=== PATIENT | male | born 1935 | race Caucasian/White ===

== ENCOUNTER 2017-01-26 11:25 | Inpatient (IN) | payer OTHER ==
[~2017-01-26] VITALS: Ht 172.7 cm; Wt 77.2 kg
[2017-01-26] VITALS (8 sets, daily range): BP systolic 155–170; BP diastolic 95–98; PULSE 86–97; TEMP 36.4–36.9; O2SAT 91–97; Ht 172.7 cm; Wt 77.2 kg
[~2017-01-26 11:25] MED LIST: ALLO300T2 PO; ASPI81TA28 PO; CLON0.2T11 PO; IPRA1AER2 INH; IPRASOL4 INH; LISI-461 PO; LSX20 PO; LSX40 PO; METO50TA16 PO; NRV/10 PO; OXGN; PRAV40TA2 PO; SYN25 PO
[2017-01-26] MEDS ORDERED: METHYLPREDNISOLONE 125 MG VIAL IV STA (11:38)
[2017-01-26] MEDS ORDERED: ALBUT/IPRATROP 3MG/0.5MG NEB 3 ML VIAL INH ONE (11:45)
--- NOTE | 2017-01-26 11:46 | EMERGENCY ROOM VISIT NOTE ---
History Report prepared by Elias: Jorge Rubi Under the Supervision of: Dr. Jonny Ayala D.O. First contact with patient: 11:32 Chief Complaint: RESPIRATORY PROBLEMS Stated Complaint: COUGH, DIZZY, DIFF. BREATHING History of Present Illness The patient is an 81 year old male who presents to the Emergency Room with complaints of worsening. difficulty breathing that began two months prior to arrival. The patient states that he has also been experiencing a persistent producing cough that onset at roughly the same time as the breathing difficulties. He denies any blood in the cough or recent chest pains. The patient has a history of COPD and commonly uses oxygen at home while sleeping. He also uses home nebulizer treatments. The patient has had a STEMI in the past and had 4 stents placed. He denies any history of CHF. The patient had his last nebulizer treatment this morning at 0900. He was 85% on room air upon arrival to the emergency department. 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 A total of 10 systems reviewed and were otherwise negative. Past Medical & Surgical Medical Problems: (1) Asthma (2) CAD (coronary artery disease) (3) Chronic diastolic heart failure (4) Chronic obstructive lung disease (5) COPD (chronic obstructive pulmonary disease) (6) DM type 2 (diabetes mellitus, type 2) (7) Hx MRSA infection (8) Hypertension (9) Hypothyroidism (10) Pulmonary hypertension Surgical Problems: (1) Hx of squamous cell carcinoma excision (2) S/P coronary artery stent placement (3) S/P hernia repair (4) S/P knee replacement Family History Cancer Heart disease Hypertension Kidney disease Kidney stones Lung disease Seizures Social History Smoking Status: Former Smoker Alcohol Use: none Drug Use: none Marital Status: Housing Status: lives with family Occupation Status: retired Current/Historical Medications Scheduled Allopurinol (Zyloprim), 300 MG PO DAILY Aspirin (Aspirin Ec), 81 MG PO HS Clonidine Hcl (Catapres), 0.2 MG PO BID Furosemide (Furosemide), 20 MG PO QAM Furosemide (Furosemide), 40 MG PO DAILY Ipratropium-Albuterol (Duoneb), 1 TREATMENT INH Q6H Levothyroxine Sodium (Synthroid), 50 MCG PO DAILY Lisinopril (Prinivil), 5 MG PO PM Metoprolol Tartrate (Lopressor) (Lopressor), 50 MG PO BID Oxygen (Oxygen), 2 LITERS NA UD Pravastatin Sodium (Pravastatin Sodium), 40 MG PO HS Tamsulosin Hcl (Flomax), 0.4 MG PO PM Scheduled PRN Ipratropium-Albuterol (Combivent Respimat), 1 PUFFS INH QID PRN for Wheezing Allergies Coded Allergies: No Known Allergies (Unverified , 12/09/15) Physical Exam Vital Signs Date Time Temp Pulse Resp B/P Pulse Ox O2 Delivery O2 Flow Rate FiO2 01/26/17 14:45 97 20 141/82 91 Nasal Cannula 3.0 01/26/17 14:00 91 Nasal Cannula 3.0 01/26/17 13:32 97 22 121/80 94 Nasal Cannula 3.0 01/26/17 12:46 94 22 135/79 96 Nasal Cannula 3.0 01/26/17 11:52 86 18 96 Nasal Cannula 3.0 01/26/17 11:50 85 22 130/78 95 Nasal Cannula 3.0 01/26/17 11:48 87 01/26/17 11:39 85 Room Air 01/26/17 11:38 91 Nasal Cannula 3.0 01/26/17 11:37 85 Room Air 01/26/17 11:37 91 Nasal Cannula 3.0 01/26/17 11:28 36.9 90 24 122/74 82 Room Air Physical Exam GENERAL: Patient is awake, alert, and very anxious and uncomfortable appearing. Showing significant difficulty breathing. EYES: The conjunctivae are clear. The pupils are round and reactive. EARS, NOSE, MOUTH AND THROAT: The nose is without any evidence of any deformity. Mucous membranes are moist tongue is midline NECK: The neck is nontender and supple. RESPIRATORY: Diminished breath sounds throughout, with experatory wheezing bilaterally. Poor air movement bilaterally. Significant conversational dyspnea noted on examination. There is no evidence of rhonchi or rales CARDIOVASCULAR: Tachycardiac rate and rhythm noted there no murmurs rubs or gallops to auscultation normal S1 normal S2 GASTROINTESTINAL: The abdomen is soft. Bowel sounds are present in all quadrants. Abdomen is nontender MUSCULOSKELETAL/EXTREMITIES: There is no evidence of gross deformity full range of motion is noted in the hips and shoulders SKIN: Trace pedal edema bilaterally. There is no obvious evidence of any rash. There are no petechiae, pallor or cyanosis noted. NEUROLOGIC: Patient is awake alert and oriented x3 Medical Decision & Procedures ER Provider Diagnostic Interpretation: Radiology results as stated below per my review and radiologist interpretation: CHEST ONE VIEW PORTABLE CLINICAL HISTORY: Respiratory distress. Shortness of breath. COMPARISON STUDY: 12/09/2015 FINDINGS: There is severe pulmonary emphysema. The heart is the upper limits of normal in size. Right basal airspace opacities remain similar and are likely atelectatic. There are new left basal airspace opacities, possibly representing a pneumonitis. Clinical and radiographic follow-up is recommended.[ IMPRESSION: 1. Severe pulmonary emphysema 2. New left basal airspace opacities possibly representing a pneumonitis. Clinical and radiographic follow-up is recommended. Electronically signed by: Conor Leong M.D. 01/26/2017 11:56 AM Dictated Date/Time: 01/26/2017 11:54 AM Laboratory Results 01/26/17 11:45 Red Blood Count 4.35, Mean Corpuscular Volume 95.4, Mean Corpuscular Hemoglobin 31.3, Mean Corpuscular Hemoglobin Concent 32.8, Mean Platelet Volume 9.8, Neutrophils (%) (Auto) 82.4, Lymphocytes (%) (Auto) 6.3, Monocytes (%) (Auto) 7.1, Eosinophils (%) (Auto) 3.7, Basophils (%) (Auto) 0.3, Neutrophils # (Auto) 5.11, Lymphocytes # (Auto) 0.39, Monocytes # (Auto) 0.44, Eosinophils # (Auto) 0.23, Basophils # (Auto) 0.02 01/26/17 11:45 Test 01/26/17 11:45 01/26/17 13:25 White Blood Count 6.20 K/uL (4.8-10.8) Red Blood Count 4.35 M/uL (4.7-6.1) Hemoglobin 13.6 g/dL (14.0-18.0) Hematocrit 41.5 % (42-52) Mean Corpuscular Volume 95.4 fL (80-100) Mean Corpuscular Hemoglobin 31.3 pg (25-34) Mean Corpuscular Hemoglobin Concent 32.8 g/dl (32-36) Platelet Count 182 K/uL (130-400) Mean Platelet Volume 9.8 fL (7.4-10.4) Neutrophils (%) (Auto) 82.4 % Lymphocytes (%) (Auto) 6.3 % Monocytes (%) (Auto) 7.1 % Eosinophils (%) (Auto) 3.7 % Basophils (%) (Auto) 0.3 % Neutrophils # (Auto) 5.11 K/uL (1.4-6.5) Lymphocytes # (Auto) 0.39 K/uL (1.2-3.4) Monocytes # (Auto) 0.44 K/uL (0.11-0.59) Eosinophils # (Auto) 0.23 K/uL (0-0.5) Basophils # (Auto) 0.02 K/uL (0-0.2) RDW Standard Deviation 46.7 fL (36.4-46.3) RDW Coefficient of Variation 13.4 % (11.5-14.5) Immature Granulocyte % (Auto) 0.2 % Immature Granulocyte # (Auto) 0.01 K/uL (0.00-0.02) Prothrombin Time 10.4 SECONDS (9.0-12.0) Prothromb Time International Ratio 1.0 (0.9-1.1) Activated Partial Thromboplast Time 29.2 SECONDS (21.0-31.0) Partial Thromboplastin Ratio 1.1 Anion Gap 7.0 mmol/L (3-11) Est Creatinine Clear Calc Drug Dose 38.0 ml/min Estimated GFR () 50.2 Estimated GFR (Non- 43.3 BUN/Creatinine Ratio 9.4 (10-20) Calcium Level 8.7 mg/dl (8.5-10.1) Magnesium Level 1.8 mg/dl (1.8-2.4) Total Bilirubin 0.6 mg/dl (0.2-1) Aspartate Amino Transf (AST/SGOT) 21 U/L (15-37) Alanine Aminotransferase (ALT/SGPT) 16 U/L (12-78) Alkaline Phosphatase 47 U/L (45-117) Total Creatine Kinase 206 U/L (39-308) Creatine Kinase MB 3.2 ng/ml (0.5-3.6) Creatine Kinase MB Ratio 1.6 (0-3.0) Troponin I < 0.015 ng/ml (0-0.045) Pro-B-Type Natriuretic Peptide 897 pg/ml (0-1800) Total Protein 6.9 gm/dl (6.4-8.2) Albumin 3.6 gm/dl (3.4-5.0) Globulin 3.3 gm/dl (2.5-4.0) Albumin/Globulin Ratio 1.1 (0.9-2) Urine Color YELLOW Urine Appearance CLOUDY (CLEAR) Urine pH 7.5 (4.5-7.5) Urine Specific [place] 1.015 (1.000-1.030) Urine Protein NEG (NEG) Urine Glucose (UA) NEG (NEG) Urine Ketones NEG (NEG) Urine Occult Blood TRACE (NEG) Urine Nitrite NEG (NEG) Urine Bilirubin NEG (NEG) Urine Urobilinogen NEG (NEG) Urine Leukocyte Esterase SMALL (NEG) Urine WBC (Auto) 1-5 /hpf (0-5) Urine RBC (Auto) 0-4 /hpf (0-4) Urine Hyaline Casts (Auto) 1-5 /lpf (0-5) Urine Epithelial Cells (Auto) >30 /lpf (0-5) Urine Bacteria (Auto) NEG (NEG) Urine Renal Epithelial Cells /lpf (0-5) Laboratory results per my review. Medications Administered Medications (Trade) Dose Ordered Sig/Luis Route Start Time Stop Time Status Last Admin Dose Admin Albuterol/ Ipratropium (Duoneb) 12 ml ONE ONCE INH 01/26/17 11:45 01/26/17 11:46 DC 01/26/17 11:51 12 ML Methylprednisolone Sodium Succinate 125 mg 125 mg NOW STAT IV 01/26/17 11:38 01/26/17 11:40 DC 01/26/17 12:15 125 MG Sodium Chloride (Nss 1000ml) 1,000 ml @ 999 mls/hr Q1H1M STAT IV 01/26/17 11:56 01/26/17 12:56 DC 01/26/17 12:02 999 MLS/HR Levofloxacin (Levaquin / D5W) 750 mg NOW STAT IV 01/26/17 12:00 01/26/17 12:01 DC 01/26/17 12:15 750 MG ECG Indication: SOB/dyspnea Rate (beats per minute): 89 Rhythm: normal sinus Findings: RBBB, no ectopy ED Course 1136: The patient was evaluated in room A3. A complete history and physical examination were performed. 1138: Ordered Solu-Medrol 125 mg IV. 1145: Ordered Duoneb 12 mL INH. 1156: Ordered Sodium Chloride 1000 mL @ 999 mL/hr IV. 1200: Ordered Levofloxacin 750 mg IV. 1339: I reevaluated the patient at this time. She is agreeable to admission. 1358: I discussed the case with Ashley Keith, she will evaluate the patient for further treatment. Medical Decision Differential diagnosis: Etiologies such as infections, reactive airway disease, pneumonia, pneumothorax , COPD, CHF, cardiac ischemia, pulmonary embolism, musculoskeletal, gastrointestinal, as well as others were entertained. Nursing notes reviewed. The patient is an 81-year-old male who has a history of COPD who presented to the emergency department for an evaluation of shortness of breath. The patient was found have significant respiratory distress with air hunger and diminished breath sounds noted throughout. He was treated with an hour-long nebulizer treatment and IV steroids. He was also given IV fluids and IV antibiotics for presumed pneumonia noted on chest x-ray. The patient was reevaluated multiple times. His condition significantly improved but he still had very significant difficulty breathing. He was also found have hypoxia initially. This reason I discussed his case with the on-call [facility] hospitalist group. They've agreed to evaluate the patient in emergency department for further management and disposition. Consults Time Called: [phone] Consulting Physician: Ashley Keith Returned Call: [phone] I discussed the case with Ashley Keith, she will evaluate the patient for further treatment. Impression Primary Impression: COPD exacerbation Additional Impressions: Left lower lobe pneumonia Hypoxia Scribe Attestation The scribe's documentation has been prepared under my direction and personally reviewed by me in its entirety. I confirm that the note above accurately reflects all work, treatment, procedures, and medical decision making performed by me. Departure Information Dispostion Being Evaluated By Hospitalist Referrals Ochoa Kelly DO (PCP) Patient Instructions My [facility] Problem Qualifiers Additional Impressions: Left lower lobe pneumonia Pneumonia type: due to unspecified organism Qualified Codes: J18.1 - Lobar pneumonia, unspecified organism
[2017-01-26] MEDS ORDERED: SODIUM CHLORIDE 0.9% 1000ML 1,000 ML IV STA (11:56)
--- NOTE | 2017-01-26 11:57 | DIAGNOSTIC IMAGING REPORT ---
CHEST ONE VIEW PORTABLE CLINICAL HISTORY: Respiratory distress. Shortness of breath. COMPARISON STUDY: 12/09/2015 FINDINGS: There is severe pulmonary emphysema. The heart is the upper limits of normal in size. Right basal airspace opacities remain similar and are likely atelectatic. There are new left basal airspace opacities, possibly representing a pneumonitis. Clinical and radiographic follow-up is recommended.[ IMPRESSION: 1. Severe pulmonary emphysema 2. New left basal airspace opacities possibly representing a pneumonitis. Clinical and radiographic follow-up is recommended. Electronically signed by: Conor Leong M.D. 01/26/2017 11:56 AM Dictated Date/Time: 01/26/2017 11:54 AM
[2017-01-26] MEDS ORDERED: LISI5TAB PO (12:00)
[2017-01-26] MEDS ORDERED: LEVAQUIN 750MG / 150ML D5W IV STA (12:00)
[2017-01-26] MEDS ORDERED: TAMS0.4C38 PO (12:00)
[2017-01-26] MEDS ORDERED: LEVO50TA PO (12:00)
[2017-01-26 12:06] LABS: BASO % 0.3 %; BASO ABS # 0.02 K/uL (0-0.2); COMPLETE YES; EOS % 3.7 %; HEMATOCRIT 41.5 % (42-52); IG% 0.2 %; LYMPH % 6.3 %; LYMPH ABS # 0.39 K/uL (1.2-3.4); MEAN CELL VOLUME 95.4 fL (80-100); MEAN CORPUSCULAR HEMOGLOBIN 31.3 pg (25-34); MEAN CORPUSCULAR HGB CONC 32.8 g/dl (32-36); MEAN PLATELET VOLUME 9.8 fL (7.4-10.4); MONO % 7.1 %; NEUT % 82.4 %; PLATELET COUNT 182 K/uL (130-400); RED BLOOD COUNT 4.35 M/uL (4.7-6.1)
[2017-01-26 12:22] LABS: PARTIAL THROMBOPLASTIN RATIO 1.1; PROTHROMBIN TIME (PATIENT) 10.4 SECONDS (9.0-12.0)
[2017-01-26 12:27] LABS: ALT/SGPT 16 U/L (12-78); BLOOD UREA NITROGEN 14 mg/dl (7-18); BUN/CREATININE RATIO 9.4 (10-20); CALCIUM 8.7 mg/dl (8.5-10.1); CARBON DIOXIDE 36 mmol/L (21-32); CHLORIDE 99 mmol/L (98-107); GLUCOSE 129 mg/dl (70-99); MAGNESIUM 1.8 mg/dl (1.8-2.4); POTASSIUM 3.1 mmol/L (3.5-5.1); SODIUM 142 mmol/L (136-145)
[2017-01-26 12:32] LABS: ALB/GLOB RATIO 1.1 (0.9-2); ALKALINE PHOSPHATASE 47 U/L (45-117); AST/SGOT 21 U/L (15-37); CKMB/CK RATIO 1.6 (0-3.0)
[2017-01-26 13:50] LABS: URINE APPEARANCE CLOUDY (CLEAR); URINE BILIRUBIN NEG (NEG); URINE COLOR YELLOW; URINE EPITHELIAL CELL AUTO >30 /lpf (0-5); URINE NITRITE NEG (NEG); URINE PH 7.5 (4.5-7.5); URINE SPECIFIC GRAVITY 1.015 (1.000-1.030); UROBILINOGEN NEG (NEG)
[2017-01-26 13:51] LABS: MANUAL MICROSCOPIC REQUIRED? NO; REVIEW REQ? YES
[2017-01-26] MEDS ORDERED: ONDANSETRON INJ 2 MG/ML 2 ML VIAL IV PRN (15:15)
[2017-01-26] MEDS ORDERED: ACETAMINOPHEN 325 MG TAB PO PRN (15:15)
[2017-01-26] MEDS ORDERED: NITROGLYCERIN 0.4 MG SL PER TAB CHARGE SL PRN (15:15)
[2017-01-26] MEDS ORDERED: SODIUM CHLORIDE 0.9% 1000ML 1,000 ML IV SCH (15:15)
[2017-01-26] MEDS ORDERED: POTASSIUM CHLORIDE 10 MEQ TABCR PO STA (15:53)
[2017-01-26] MEDS ORDERED: DEXTROSE 50% 50 ML SYR IV PRN (17:00)
[2017-01-26] MEDS ORDERED: GLUCOSE 40% GEL 15 GM TUBE PO PRN (17:00)
[2017-01-26] MEDS ORDERED: GLUCAGON FOR INJ 1 MG VIAL SQ PRN (17:00)
[2017-01-26] MEDS ORDERED: GLUCOSE 10 TABS/TUBE PO PRN (17:00)
--- NOTE | 2017-01-26 17:34 | History and Physical ---
History & Physical Date & Time of Service: Jan 26, 2017 at 15:18 Chief Complaint: Cough, Dizzy, Diff. Breathing Primary Care Physician: Ochoa Kelly DO History of Present Illness Source: patient This is an 81 y/o male with PMHx of CAD s/p stents, diet-controlled DM 2, COPD on 2L O2 HS, HTN, Dyslipidemia and other problems as outlined below who presents to the ED c/o SOB x 2 days. Pt reports that 2 days ago he developed worsening SOB that is aggravated with exertion. He has been using his nebulizer and inhalers which is only providing temporary relief. Sxs are assoc with wheezing and prod cough. Pt has a history of COPD on 2L O2 HS and PRN during the day. For the past 2 days he has been using his O2 continuously. Pt has a history of CAD with 4 stents placed. Pt denies fever/chills, diaphoresis, chest pain, palpitations, abd pain, N/V, bowel or bladder issues, LE edema ,calf pain , lightheadedness/dizziness. In the ED, pt is hypoxic to 87% on room air. He is afebrile with no leukocytosis. K+ 3.1. creat 1.5. CXR + L basilar opacity. Pt received duoneb and solu-Medrol in the ED with some relief. He will be admitted for further evaluation and treatment. Past Medical/Surgical History Medical Problems: (1) Asthma Status: Chronic (2) CAD (coronary artery disease) Permanent Comment: s/p stent Status: Chronic (3) Chronic diastolic heart failure Permanent Comment: Echo 10/26- EF 55-60%, grade 1 diastolic dysfunction Status: Chronic (4) Chronic obstructive lung disease Status: Chronic (5) COPD (chronic obstructive pulmonary disease) Status: Chronic (6) DM type 2 (diabetes mellitus, type 2) Status: Resolved (7) Hx MRSA infection Permanent Comment: per records Status: Chronic (8) Hypertension Status: Chronic (9) Hypothyroidism Status: Chronic (10) Pulmonary hypertension Permanent Comment: Moderate on echo 09/2014 Status: Chronic Surgical Problems: (1) Hx of squamous cell carcinoma excision Permanent Comment: upper lip Status: Chronic (2) S/P coronary artery stent placement Permanent Comment: 2005 and 2007 Status: Chronic (3) S/P hernia repair Status: Chronic (4) S/P knee replacement Status: Chronic Family History Cancer Heart disease Hypertension Kidney disease Kidney stones Lung disease Seizures Social History Smoking Status: Former Smoker (50 years of smoking pipe; quit 1997) Drug Use: none Marital Status: Housing status: lives alone Occupational Status: retired Immunizations History of Influenza Vaccine: Yes Influenza Vaccine Date: Aug 07, 2012 History of Tetanus Vaccine?: Yes History of Pneumococcal: Yes Pneumococcal Date: Jul 08, 2011 History of Hepatitis B Vaccine: No Multi-Drug Resistant Organisms History of MDRO: Yes Type of MDRO: MRSA Allergies Coded Allergies: No Known Allergies (Unverified , 12/09/15) Home Medications Scheduled Allopurinol (Zyloprim), 300 MG PO DAILY Aspirin (Aspirin Ec), 81 MG PO HS Clonidine Hcl (Catapres), 0.2 MG PO BID Furosemide (Furosemide), 20 MG PO QAM Furosemide (Furosemide), 40 MG PO DAILY Ipratropium-Albuterol (Duoneb), 1 TREATMENT INH Q6H Levothyroxine Sodium (Synthroid), 50 MCG PO DAILY Lisinopril (Prinivil), 5 MG PO PM Metoprolol Tartrate (Lopressor) (Lopressor), 50 MG PO BID Oxygen (Oxygen), 2 LITERS NA UD Pravastatin Sodium (Pravastatin Sodium), 40 MG PO HS Tamsulosin Hcl (Flomax), 0.4 MG PO PM Scheduled PRN Ipratropium-Albuterol (Combivent Respimat), 1 PUFFS INH QID PRN for Wheezing Review of Systems Constitutional: + fatigue, No chills, No fever, No sweats, No weakness Eyes: No worsening of vision ENT: No hearing loss Respiratory: + cough, + dyspnea at rest, + dyspnea on exertion, + shortness of breath, + sputum, + wheezing, No hemoptysis Cardiovascular: No chest pain, No claudication, No edema, No palpitations Abdomen: + constipation (BM yesterday), No diarrhea, No nausea, No pain, No vomiting Musculoskeletal: No calf pain, No swelling Genitourinary - Male: No dysuria Neurologic: No weakness Psychiatric: No depression symptoms Endocrine: + fatigue Hematologic / Lymphatic: No abnormal bleeding/bruising Integumentary: No new/changing skin lesions Physical Exam Vital Signs Date Time Temp Pulse Resp B/P Pulse Ox O2 Delivery O2 Flow Rate FiO2 01/26/17 14:45 97 20 141/82 91 Nasal Cannula 3.0 01/26/17 14:00 91 Nasal Cannula 3.0 01/26/17 13:32 97 22 121/80 94 Nasal Cannula 3.0 01/26/17 12:46 94 22 135/79 96 Nasal Cannula 3.0 01/26/17 11:52 86 18 96 Nasal Cannula 3.0 01/26/17 11:50 85 22 130/78 95 Nasal Cannula 3.0 01/26/17 11:48 87 01/26/17 11:39 85 Room Air 01/26/17 11:38 91 Nasal Cannula 3.0 01/26/17 11:37 85 Room Air 01/26/17 11:37 91 Nasal Cannula 3.0 01/26/17 11:28 36.9 90 24 122/74 82 Room Air General Appearance: WD/WN, no apparent distress, + pertinent finding (Pt is sitting in bed with son at bedside ) Head: normocephalic, atraumatic Eyes: normal inspection ENT: hearing grossly normal Neck: supple Respiratory/Chest: chest non-tender, no respiratory distress, no accessory muscle use, + wheezing, + pertinent finding (breath sounds diminished in bases bilat) Cardiovascular: regular rate, rhythm, no edema, no murmur Abdomen/GI: normal bowel sounds, non tender, soft Back: normal inspection Extremities/Musculoskelatal: normal inspection, no calf tenderness, no pedal edema Neurologic/Psych: alert, normal mood/affect, oriented x 3 Skin: normal color, warm/dry Diagnostics Laboratory Results Results Past 24 Hours Test 01/26/17 11:45 01/26/17 13:25 Range/Units White Blood Count 6.20 4.8-10.8 K/uL Red Blood Count 4.35 4.7-6.1 M/uL Hemoglobin 13.6 14.0-18.0 g/dL Hematocrit 41.5 42-52 % Mean Corpuscular Volume 95.4 80-100 fL Mean Corpuscular Hemoglobin 31.3 25-34 pg Mean Corpuscular Hemoglobin Concent 32.8 32-36 g/dl Platelet Count 182 130-400 K/uL Mean Platelet Volume 9.8 7.4-10.4 fL Neutrophils (%) (Auto) 82.4 % Lymphocytes (%) (Auto) 6.3 % Monocytes (%) (Auto) 7.1 % Eosinophils (%) (Auto) 3.7 % Basophils (%) (Auto) 0.3 % Neutrophils # (Auto) 5.11 1.4-6.5 K/uL Lymphocytes # (Auto) 0.39 1.2-3.4 K/uL Monocytes # (Auto) 0.44 0.11-0.59 K/uL Eosinophils # (Auto) 0.23 0-0.5 K/uL Basophils # (Auto) 0.02 0-0.2 K/uL RDW Standard Deviation 46.7 36.4-46.3 fL RDW Coefficient of Variation 13.4 11.5-14.5 % Immature Granulocyte % (Auto) 0.2 % Immature Granulocyte # (Auto) 0.01 0.00-0.02 K/uL Prothrombin Time 10.4 9.0-12.0 SECONDS Prothromb Time International Ratio 1.0 0.9-1.1 Activated Partial Thromboplast Time 29.2 21.0-31.0 SECONDS Partial Thromboplastin Ratio 1.1 Sodium Level 142 136-145 mmol/L Potassium Level 3.1 3.5-5.1 mmol/L Chloride Level 99 98-107 mmol/L Carbon Dioxide Level 36 21-32 mmol/L Anion Gap 7.0 3-11 mmol/L Blood Urea Nitrogen 14 7-18 mg/dl Creatinine 1.50 0.60-1.40 mg/dl Est Creatinine Clear Calc Drug Dose 38.0 ml/min Estimated GFR () 50.2 Estimated GFR (Non- 43.3 BUN/Creatinine Ratio 9.4 10-20 Random Glucose 129 70-99 mg/dl Calcium Level 8.7 8.5-10.1 mg/dl Magnesium Level 1.8 1.8-2.4 mg/dl Total Bilirubin 0.6 0.2-1 mg/dl Aspartate Amino Transf (AST/SGOT) 21 15-37 U/L Alanine Aminotransferase (ALT/SGPT) 16 12-78 U/L Alkaline Phosphatase 47 45-117 U/L Total Creatine Kinase 206 39-308 U/L Creatine Kinase MB 3.2 0.5-3.6 ng/ml Creatine Kinase MB Ratio 1.6 0-3.0 Troponin I < 0.015 0-0.045 ng/ml Pro-B-Type Natriuretic Peptide 897 0-1800 pg/ml Total Protein 6.9 6.4-8.2 gm/dl Albumin 3.6 3.4-5.0 gm/dl Globulin 3.3 2.5-4.0 gm/dl Albumin/Globulin Ratio 1.1 0.9-2 Urine Color YELLOW Urine Appearance CLOUDY CLEAR Urine pH 7.5 4.5-7.5 Urine Specific [place] 1.015 1.000-1.030 Urine Protein NEG NEG Urine Glucose (UA) NEG NEG Urine Ketones NEG NEG Urine Occult Blood TRACE NEG Urine Nitrite NEG NEG Urine Bilirubin NEG NEG Urine Urobilinogen NEG NEG Urine Leukocyte Esterase SMALL NEG Urine WBC (Auto) 1-5 0-5 /hpf Urine RBC (Auto) 0-4 0-4 /hpf Urine Hyaline Casts (Auto) 1-5 0-5 /lpf Urine Epithelial Cells (Auto) >30 0-5 /lpf Urine Bacteria (Auto) NEG NEG Urine Renal Epithelial Cells 0-5 /lpf Microbiology Results 01/26/17 Blood Culture, Received Pending 01/26/17 Blood Culture, Received Pending Diagnostic Radiology CXR IMPRESSION: 1. Severe pulmonary emphysema 2. New left basal airspace opacities possibly representing a pneumonitis. Clinical and radiographic follow-up is recommended. EKG EKG: NSR at 89 bpm with RBBB and no acute ischemic changes; when compared with EKG from 12/09/15 RBBB is now present, sinus rhythm has replaced ectopic atrial rhythm and criteria for lateral infarct is no longer present Impression Assessment and Plan HYPOXIC RESPIRATORY FAILURE 2* TO COPD EXACERBATION AND COMMUNITY ACQUIRED PNEUMONIA pt presents with worsening SOB assoc with prod cough and wheezing -admit to telemetry -pt is afebrile with no leukocytosis -CXR + L basilar opacity -sputum and blood cultures-pending -start gentle IVF and abx (Rocephin and Doxy) -start Prednisone 60mg PO daily -duonebs PRN -cont supplemental O2 -monitor CARMELLA -creatinine 1.5 (bl=1.0) -hold Lasix and lisinopril -gentle IVF -monitor with daily prp and avoid nephrotoxic agents when able HYPOKALEMIA -K+ 3.1; replete -monitor with daily prp CORONARY ARTERY DISEASE -s/p stents x 4 -cont ASA, BB and statin -pt currently denies chest pain CHRONIC DIASTOLIC HEART FAILURE -does not appear fluid overloaded; CXR no congestion or effusions -last echo EF 55-60% with grade 1 diastolic dysfunction -holding Lasix due to elevated creatinine -cont BB -monitor volume status DIET-CONTROLLED DM 2 -diet controlled -start ISS -monitor closely while on steroids HYPOTHYROIDISM -cont levothyroxine HTN -BP stable -cont metoprolol clonidine -hold lisinopril due to CARMELLA -monitor DYSLIPIDEMIA -cont statin DVT PROPHYLAXIS -subq heparin CODE STATUS -FULL CODE per discussion with patient upon admission DISPO Pt seen in collaboration with Dr. Acevedo. Please see his addendum for further details. Thanks! -Of note: patient will be followed by Dr. Ocasio starting tomorrow AM ATTENDING ADDENDUM care coordinated with ROSELINE Meza please refer to her notes for full details, I agree with her notes patient seen and examined, records reviewed by myself as well on exam, patient seen resting in bed, comfortable states he is starting to feel improved compared to admission breathing has been improving no chest pain no other symptoms VS noted and reviewed oriented x 3, not in distress, speaks in sentences with no effort nor accessory muscle use mild scattered wheeze bilaterally non distended, soft, nontender no bipedal edema, erythema, warmth no neuro deficits WBC 6.2 K 3.1 Crea 1.5 cxr: left lowe lobe infiltrate ASSESSMENT/PLAN> 81 year old male with history of COPD, CAD, CHF presenting with shortness of breath and cough ACUTE COPD EXACERBATION LEFT LOWER LOBE PNEUMONIA ff up cultures empiric Ceftri + Doxy IV Prednisone Nebs q4h ACUTE RENAL FAILURE hold diuretics, Lisinopril monitor crea other diagnoses and plan of care as per ROSELINE Meza's notes Eric Acevedo MD Advanced Directives Existing Living Will: Yes Existing Power of Floor Tech: Yes VTE Prophylaxis VTE Risk Assessment Done? Y/N: Yes Risk Level: Moderate
[2017-01-26] MEDS: CEFTRIAXONE SOD INJ 1 GM in DEXTROSE 5% ADD-VANTAGE 50ML 50 ML IV SCH (17:40)
[2017-01-26] MEDS: DOXYCYCLINE IV 100 MG in DEXTROSE 5% 100ML 100 ML IV SCH (18:21)
[2017-01-26] MEDS: ALBUT/IPRATROP 3MG/0.5MG NEB 3 ML VIAL INH SCH (20:00)
[2017-01-26] MEDS: CLONIDINE HCL 0.1 MG TAB PO SCH (20:57)
[2017-01-26] MEDS: PRAVASTATIN SOD 40 MG TAB PO SCH (20:58)
[2017-01-26] MEDS: TAMSULOSIN HCL 0.4 MG CAP PO SCH (20:59)
[2017-01-26] MEDS: METOPROLOL TARTRATE 50 MG TAB PO SCH (21:00)
[2017-01-26] MEDS: ASPIRIN 81 MG ECTAB PO SCH (21:00)
[2017-01-26] MEDS: HEPARIN SOD 5000 UNIT/0.5 ML CARP SQ SCH (21:04)
[2017-01-26] MEDS: INSULIN ASPART 100 UNITS/ML 3 ML PEN SC SCH (21:04)
[2017-01-27] VITALS (14 sets, daily range): BP systolic 151–186; BP diastolic 89–107; PULSE 74–94; TEMP 36.5–36.8; O2SAT 92–98
[2017-01-27] MEDS: ALBUT/IPRATROP 3MG/0.5MG NEB 3 ML VIAL INH SCH ×4 (02:54→15:55)
[2017-01-27] MEDS: HEPARIN SOD 5000 UNIT/0.5 ML CARP SQ SCH ×3 (06:00→22:33)
[2017-01-27] MEDS: LEVOTHYROXINE 50 MCG TAB PO SCH (06:13)
[2017-01-27] MEDS: DOXYCYCLINE IV 100 MG in DEXTROSE 5% 100ML 100 ML IV SCH ×2 (06:13→18:33)
[2017-01-27] MEDS: INSULIN ASPART 100 UNITS/ML 3 ML PEN SC SCH ×4 (07:00→21:00)
[2017-01-27 07:47] LABS: HEMATOCRIT 38.2 % (42-52); MEAN CELL VOLUME 94.3 fL (80-100); MEAN CORPUSCULAR HEMOGLOBIN 31.4 pg (25-34); MEAN CORPUSCULAR HGB CONC 33.2 g/dl (32-36); MEAN PLATELET VOLUME 9.7 fL (7.4-10.4); PLATELET COUNT 178 K/uL (130-400); RED BLOOD COUNT 4.05 M/uL (4.7-6.1); WHITE BLOOD COUNT 5.82 K/uL (4.8-10.8)
[2017-01-27 07:56] LABS: BUN/CREATININE RATIO 14.8 (10-20); CALCIUM 7.9 mg/dl (8.5-10.1); CREATININE 1.3 mg/dl (0.60-1.40); POTASSIUM 3.7 mmol/L (3.5-5.1)
[2017-01-27] MEDS: CLONIDINE HCL 0.1 MG TAB PO SCH ×2 (08:21→21:12)
[2017-01-27] MEDS: ALLOPURINOL 300 MG TAB PO SCH (08:22)
[2017-01-27] MEDS: METOPROLOL TARTRATE 50 MG TAB PO SCH ×2 (08:22→21:12)
--- NOTE | 2017-01-27 10:33 | Clinical Documentation Query ---
CLINICAL DOCUMENTATION QUERY Dr. BARNES, In your clinical opinion is this patient being managed for: ( ) Chronic kidney disease, stage 2-3 ( ) Other explanation of clinical findings (Please Explain) ( ) Unable to determine (Please Define) ( ) Need to Discuss ( ) Not Agree The medical record reflects the following clinical findings, treatment, and risk factors. Clinical Indicators: 81 yo male presenting with pneumonia, COPD exacerbation, respiratory failure and CARMELLA. Review of historical GFR revealed GFR range of 43.3-68.4 over the past 2 years. Treatment: monitor PRP's Risk Factors: age, DM, chronic diastolic CHF, HTN, COPD, The stages of CKD according to the [employer] are as follows: Stage I: GFR >90 Stage II: GFR 60-89 Stage III: GFR 30-59 Stage IV: GFR 15-29 Stage V: GFR <15 Please clarify and document your clinical opinion in the progress notes and discharge summary. Terms such as "probable", "suspected", "likely", "questionable", "possible", or "still to be ruled out" are acceptable. IF IN AGREEMENT, YOU MUST DOCUMENT ABOVE DIAGNOSTIC STATEMENT IN DAILY PROGRESS NOTES AND DISCHARGE SUMMARY. This document is not part of the patient's record. Thank You, Carline Jimenez RN [phone]
--- NOTE | 2017-01-27 15:07 | Progress Note ---
Medicine Progress Note Date & Time of Visit: Jan 27, 2017 at 14:47. Subjective Pt was seen and examined Sitting in chair with no distress Pt said that he continue to cough he said that breathing is slightly improved still feels SOB Denies any chest pain, palpitation, fever, dizziness Objective Last 8 Hrs Date Time Temp Pulse Resp B/P Pulse Ox O2 Delivery O2 Flow Rate FiO2 01/27/17 12:12 36.8 88 14 165/89 94 Nasal Cannula 3.0 01/27/17 11:04 74 16 98 Nasal Cannula 3.0 01/27/17 07:51 36.8 91 18 186/96 94 Nasal Cannula 3.0 Physical Exam: General- No acute distress Head- atraumatic Eyes- PERRL, EOMI ENT- oropharynx clear Neck- supple, no JVD Lungs- clear to auscultation, +wheezing Heart- regular rhythm; no murmur Abdomen- normal bowel sounds, soft Extremities- no calf tenderness Neuro- alert, oriented, PERRL, EOMI; no facial palsy Skin- warm & dry Laboratory Results: Last 24 Hours Test 01/26/17 16:28 01/26/17 20:50 01/27/17 06:14 01/27/17 06:57 Bedside Glucose 200 mg/dl 229 mg/dl 117 mg/dl White Blood Count 5.82 K/uL Red Blood Count 4.05 M/uL Hemoglobin 12.7 g/dL Hematocrit 38.2 % Mean Corpuscular Volume 94.3 fL Mean Corpuscular Hemoglobin 31.4 pg Mean Corpuscular Hemoglobin Concent 33.2 g/dl RDW Standard Deviation 45.7 fL RDW Coefficient of Variation 13.3 % Platelet Count 178 K/uL Mean Platelet Volume 9.7 fL Sodium Level 142 mmol/L Potassium Level 3.7 mmol/L Chloride Level 100 mmol/L Carbon Dioxide Level 33 mmol/L Anion Gap 9.0 mmol/L Blood Urea Nitrogen 19 mg/dl Creatinine 1.30 mg/dl Est Creatinine Clear Calc Drug Dose 43.8 ml/min Estimated GFR () 59.7 Estimated GFR (Non- 51.5 BUN/Creatinine Ratio 14.8 Random Glucose 120 mg/dl Calcium Level 7.9 mg/dl Test 01/27/17 11:54 Bedside Glucose 107 mg/dl Date/Time Source Procedure Growth Status 01/26/17 16:30 Nasal MRSA DNA Surveillance Screen - Final Specimen Positive for MRSA by DNA Probe Complete 01/26/17 17:05 Sputum Expectorated Sputum Gram Stain - Final Resulted 01/26/17 17:05 Sputum Expectorated Sputum Sputum Culture - Preliminary MODERATE NORMAL MARV Present, Final ... Resulted Assessment & Plan HYPOXIC RESPIRATORY FAILURE Possible related to COPD exacerbation vs Community acquired pneumonia -CXR showed new left basal airspace opacities -sputum cx growth normal marv -Blood cx pending -Continue Rocephin and Doxy -Prednisone taper to 40mg daily -continue duonebs PRN -cont supplemental O2 -monitor in tele CARMELLA -creatinine 1.5 (bl=1.0) -hold Lasix -Resumed lisinopril -gentle IVF -avoid nephrotoxic agents - continue monitor BMP HYPOKALEMIA -K+ 3.7 -Continue monitor BMP CORONARY ARTERY DISEASE -s/p stents x 4 -cont ASA, BB and statin -asymptomatic CHRONIC DIASTOLIC HEART FAILURE -does not appear fluid overloaded; CXR no congestion or effusions -last echo EF 55-60% with grade 1 diastolic dysfunction -Continue holding Lasix due to elevated creatinine -Stable DIET-CONTROLLED DM 2 -diet controlled -start ISS -monitor closely while on steroids HYPOTHYROIDISM -cont levothyroxine HTN -BP elevated -cont metoprolol clonidine, lisinopril restart - Will add hydralazine PRN -Continue monitor BP DYSLIPIDEMIA -cont statin DVT PROPHYLAXIS -subq heparin CODE STATUS FULL CODE Current Inpatient Medications: Current Inpatient Medications Medications (Trade) Dose Ordered Sig/Luis Route Start Time Stop Time Status Last Admin Dose Admin Heparin Sodium (Porcine) (Heparin Sq 5000 Unit/0.5ml) 5,000 unit Q8 SQ 01/26/17 22:00 02/25/17 21:59 01/27/17 14:05 5,000 UNIT Acetaminophen (Tylenol Tab) 650 mg Q4H PRN PO 01/26/17 15:15 02/25/17 15:14 Ondansetron HCl (Zofran Inj) 4 mg Q6H PRN IV 01/26/17 15:15 02/25/17 15:14 Nitroglycerin (Nitrostat Tab) 0.4 mg UD PRN SL 01/26/17 15:15 02/25/17 15:14 Prednisone 60 mg 60 mg DAILY PO 01/27/17 09:00 02/26/17 08:59 01/27/17 08:23 60 MG Ceftriaxone Sodium 1 gm/ Dextrose 50 ml @ 100 mls/hr Q24H IV 01/26/17 17:00 02/02/17 15:14 01/26/17 17:40 100 MLS/HR Doxycycline Hyclate/Dextrose (Vibramycin IV/ D5 100ml) 110 ml @ 50 mls/hr Q12H IV 01/26/17 18:00 02/02/17 17:59 01/27/17 06:13 50 MLS/HR Albuterol/ Ipratropium (Duoneb) 3 ml QIDR INH 01/26/17 16:00 02/25/17 15:59 01/27/17 11:04 3 ML Allopurinol (Zyloprim Tab) 300 mg DAILY PO 01/27/17 09:00 02/26/17 08:59 01/27/17 08:22 300 MG Aspirin (Ecotrin Tab) 81 mg HS PO 01/26/17 21:00 02/25/17 20:59 01/26/17 21:00 81 MG Levothyroxine Sodium (Synthroid Tab) 50 mcg DAILYBB PO 01/27/17 06:00 02/26/17 05:59 01/27/17 06:13 50 MCG Metoprolol Tartrate (Lopressor Tab) 50 mg BID PO 01/26/17 21:00 02/25/17 20:59 01/27/17 08:22 50 MG Pravastatin Sodium (Pravachol Tab) 40 mg HS PO 01/26/17 21:00 02/25/17 20:59 01/26/17 20:58 40 MG Tamsulosin HCl (Flomax Cap) 0.4 mg PM PO 01/26/17 21:00 02/25/17 20:59 01/26/17 20:59 0.4 MG Clonidine HCl (Catapres Tab) 0.2 mg BID PO 01/26/17 21:00 02/25/17 20:59 01/27/17 08:21 0.2 MG Insulin Aspart (novoLOG ASPART) SLIDING SCALE If C... ACHS SC 01/26/17 21:00 02/25/17 20:59 01/27/17 11:00 1 UNITS Glucose (Glucose 40% Gel) 15-30 GRAMS 15 GRAMS... UD PRN PO 01/26/17 17:00 02/25/17 16:59 Glucose (Glucose Chew Tab) 4-8 Tablets 4 Tabl... UD PRN PO 01/26/17 17:00 02/25/17 16:59 Dextrose (Dextrose 50% 50ML Syringe) 25-50ML OF 50% DW IV FOR... UD PRN IV 01/26/17 17:00 02/25/17 16:59 Glucagon (Glucagon Inj) 1 mg UD PRN SQ 01/26/17 17:00 02/25/17 16:59
[2017-01-27 15:48] LABS: HEMATOCRIT 39.5 % (42-52); MEAN CELL VOLUME 95.4 fL (80-100); MEAN CORPUSCULAR HEMOGLOBIN 31.9 pg (25-34); MEAN CORPUSCULAR HGB CONC 33.4 g/dl (32-36); MEAN PLATELET VOLUME 9.4 fL (7.4-10.4); PLATELET COUNT 174 K/uL (130-400); RED BLOOD COUNT 4.14 M/uL (4.7-6.1); WHITE BLOOD COUNT 7.61 K/uL (4.8-10.8)
[2017-01-27] MEDS: GUAIFENESIN 200 MG TAB PO PRN (16:14)
[2017-01-27] MEDS: CEFTRIAXONE SOD INJ 1 GM in DEXTROSE 5% ADD-VANTAGE 50ML 50 ML IV SCH (16:14)
[2017-01-27] MEDS: HydrALAZINE HCL 20 MG/ML VIAL IV. PRN (16:14)
[2017-01-27 16:32] LABS: BUN/CREATININE RATIO 15.4 (10-20); CALCIUM 8.5 mg/dl (8.5-10.1); CREATININE 1.5 mg/dl (0.60-1.40); POTASSIUM 4.6 mmol/L (3.5-5.1)
[2017-01-27] MEDS: TAMSULOSIN HCL 0.4 MG CAP PO SCH (21:12)
[2017-01-27] MEDS: PRAVASTATIN SOD 40 MG TAB PO SCH (21:12)
[2017-01-27] MEDS: ASPIRIN 81 MG ECTAB PO SCH (21:12)
[2017-01-27] MEDS: LISINOPRIL 5 MG TAB PO SCH (21:13)
[2017-01-28] VITALS (11 sets, daily range): BP systolic 145–189; BP diastolic 89–117; PULSE 71–96; TEMP 36.4–36.9; O2SAT 94–98
[2017-01-28] MEDS: ALBUT/IPRATROP 3MG/0.5MG NEB 3 ML VIAL INH SCH ×4 (02:26→19:30)
[2017-01-28] MEDS: DOXYCYCLINE IV 100 MG in DEXTROSE 5% 100ML 100 ML IV SCH ×2 (05:48→18:44)
[2017-01-28] MEDS: LEVOTHYROXINE 50 MCG TAB PO SCH (05:49)
[2017-01-28] MEDS: HEPARIN SOD 5000 UNIT/0.5 ML CARP SQ SCH ×3 (05:56→21:13)
[2017-01-28] MEDS: INSULIN ASPART 100 UNITS/ML 3 ML PEN SC SCH ×4 (07:00→20:56)
--- NOTE | 2017-01-28 09:04 | Clinical Documentation Query ---
CLINICAL DOCUMENTATION QUERY Dr. AGUIAR, In your clinical opinion is this patient being managed for: ( ) Chronic kidney disease, stage 2-3 ( ) Other explanation of clinical findings (Please Explain) ( ) Unable to determine (Please Define) ( ) Need to Discuss ( ) Not Agree This is not my patient. Thanks The medical record reflects the following clinical findings, treatment, and risk factors. Clinical Indicators: 81 yo male presenting with pneumonia, COPD exacerbation, respiratory failure and CARMELLA. Review of historical GFR revealed GFR range of 43.3-68.4 over the past 2 years. Treatment: monitor PRP's Risk Factors: age, DM, chronic diastolic CHF, HTN, COPD, The stages of CKD according to the National Kidney Foundation are as follows: Stage I: GFR >90 Stage II: GFR 60-89 Stage III: GFR 30-59 Stage IV: GFR 15-29 Stage V: GFR <15 Please clarify and document your clinical opinion in the progress notes and discharge summary. Terms such as "probable", "suspected", "likely", "questionable", "possible", or "still to be ruled out" are acceptable. IF IN AGREEMENT, YOU MUST DOCUMENT ABOVE DIAGNOSTIC STATEMENT IN DAILY PROGRESS NOTES AND DISCHARGE SUMMARY. This document is not part of the patient's record. Thank You, Carline Jimenez, JULIANA [phone]
[2017-01-28] MEDS: ALLOPURINOL 300 MG TAB PO SCH (09:40)
[2017-01-28] MEDS: CLONIDINE HCL 0.1 MG TAB PO SCH ×2 (09:40→21:08)
[2017-01-28] MEDS: METOPROLOL TARTRATE 50 MG TAB PO SCH ×2 (09:41→21:07)
[2017-01-28] MEDS: GUAIFENESIN 200 MG TAB PO PRN (09:42)
--- NOTE | 2017-01-28 10:08 | Progress Note ---
Internal Med Progress Note Date of Service: Jan 28, 2017. Provider Documentation: SUBJECTIVE: Patient feels bit better than yesterday. C/o cough, unable to bring up sputum. SOB + improved but not at baseline yet No chest pain, fever, chills, leg swelling On 3 L oxygen (Home-2.5-3 L) OBJECTIVE: Vital Signs-as noted below Exam: General- No acute distress Neck- supple, no JVD Lungs- clear to auscultation, +wheezing Heart- regular rhythm; no murmur Abdomen- normal bowel sounds, soft Extremities- no calf tenderness, no edema Neuro- alert, oriented x 2, no focal deficits grossly Lab data as noted below. ASSESSMENT & PLAN: ACUTE ON CHRONIC HYPOXIC RESPIRATORY FAILURE : Improving Likely secondary to COPD Exacerbation secondary to Community acquired pneumonia (Left Lower Lobe): Home oxygen: 2.5-3 L day/night time. Checks SaO2 by himself and on and off uses oxygen accordingly -Clinically better, but continues to have cough, unable to bring up sputum, SOB , Afebrile, No leucocytosis -CXR showed new left basal airspace opacities -Work up- Sputum cx growth normal marv, Blood cx- negative -On IV Rocephin and Doxycycline (Day 2)--> Okay to discontinue Rocephin as doxycycline will cover CAP -Duonebs QID, Prednisone tapered to 40mg daily -Monitor clinically CARMELLA ON CKD-III -Creatinine 1.5 (bl=1.0) -Hold Lasix, S/P IVF -Resumed lisinopril -Avoid nephrotoxic agents HYPOKALEMIA -K+ 3.7 -Continue to monitor BMP CORONARY ARTERY DISEASE -S/P stents x 4 -cont ASA, BB and statin -Asymptomatic CHRONIC DIASTOLIC HEART FAILURE -Does not appear fluid overloaded; CXR no congestion or effusions -last echo EF 55-60% with grade 1 diastolic dysfunction -Continue holding Lasix due to elevated creatinine -Stable DIET-CONTROLLED DM 2 -diet controlled -ISS -Monitor closely while on steroids HYPOTHYROIDISM -Cont levothyroxine HTN -BP elevated today -Cont metoprolol, clonidine, lisinopril resumed - IV hydralazine PRN -Continue monitor BP DYSLIPIDEMIA -cont statin DVT PROPHYLAXIS -subq heparin CODE STATUS FULL CODE DISPOSITION Okay to transfer to [facility]-surg Discussed with son by bedside, updated Vital Signs: Date Time Temp Pulse Resp B/P Pulse Ox O2 Delivery O2 Flow Rate FiO2 01/28/17 09:44 94 01/28/17 07:48 36.8 96 18 189/95 95 Nasal Cannula 3.0 01/28/17 07:03 71 16 94 Nasal Cannula 3.0 01/28/17 04:00 36.4 91 20 173/89 96 Nasal Cannula 3.0 01/28/17 04:00 Nasal Cannula 3.0 01/28/17 02:26 89 16 98 Nasal Cannula 3.0 01/28/17 00:00 36.6 78 18 169/94 97 Nasal Cannula 3.0 01/27/17 23:59 Nasal Cannula 3.0 01/27/17 20:00 96 Nasal Cannula 3.0 01/27/17 19:09 36.8 94 22 168/95 94 Nasal Cannula 2.5 01/27/17 16:00 95 Nasal Cannula 3.0 01/27/17 15:43 36.5 81 20 96 Nasal Cannula 3.0 01/27/17 15:09 36.7 79 20 179/107 95 Nasal Cannula 3.0 01/27/17 12:12 36.8 88 14 165/89 94 Nasal Cannula 3.0 01/27/17 12:00 94 Nasal Cannula 3.0 01/27/17 11:04 74 16 98 Nasal Cannula 3.0 Lab Results: Results Past 24 Hours Test 01/27/17 11:54 01/27/17 15:40 01/27/17 16:48 01/27/17 20:20 Range/Units Bedside Glucose 107 169 149 70-99 mg/dl White Blood Count 7.61 4.8-10.8 K/uL Red Blood Count 4.14 4.7-6.1 M/uL Hemoglobin 13.2 14.0-18.0 g/dL Hematocrit 39.5 42-52 % Mean Corpuscular Volume 95.4 80-100 fL Mean Corpuscular Hemoglobin 31.9 25-34 pg Mean Corpuscular Hemoglobin Concent 33.4 32-36 g/dl RDW Standard Deviation 46.5 36.4-46.3 fL RDW Coefficient of Variation 13.3 11.5-14.5 % Platelet Count 174 130-400 K/uL Mean Platelet Volume 9.4 7.4-10.4 fL Sodium Level 141 136-145 mmol/L Potassium Level 4.6 3.5-5.1 mmol/L Chloride Level 101 98-107 mmol/L Carbon Dioxide Level 37 21-32 mmol/L Anion Gap 3.0 3-11 mmol/L Blood Urea Nitrogen 23 7-18 mg/dl Creatinine 1.50 0.60-1.40 mg/dl Est Creatinine Clear Calc Drug Dose 38.0 ml/min Estimated GFR () 50.2 Estimated GFR (Non- 43.3 BUN/Creatinine Ratio 15.4 10-20 Random Glucose 163 70-99 mg/dl Calcium Level 8.5 8.5-10.1 mg/dl Test 01/28/17 06:06 Range/Units Bedside Glucose 96 70-99 mg/dl
[2017-01-28] MEDS ORDERED: NURSING VERBAL MED ORDER ONE (12:30)
[2017-01-28] MEDS ORDERED: ALUMINUM/MAGNESIUM SUSP 30 ML UDC ONE (12:37)
[2017-01-28] MEDS ORDERED: HALOPERIDOL LACTATE 5 MG/ML 1 ML VIAL IM PRN ×2 (16:45)
[2017-01-28] MEDS: NYSTATIN SUSP 500,000 U/5 ML UDC PO SCH ×2 (17:32→21:08)
[2017-01-28] MEDS: GUAIFENESIN 600 MG TABCR PO SCH (21:06)
[2017-01-28] MEDS: LISINOPRIL 5 MG TAB PO SCH (21:06)
[2017-01-28] MEDS: TAMSULOSIN HCL 0.4 MG CAP PO SCH (21:07)
[2017-01-28] MEDS: ASPIRIN 81 MG ECTAB PO SCH (21:07)
[2017-01-28] MEDS: PRAVASTATIN SOD 40 MG TAB PO SCH (21:08)
[2017-01-29] VITALS (14 sets, daily range): BP systolic 113–176; BP diastolic 67–97; PULSE 76–100; TEMP 36.5–36.9; O2SAT 96–98
[2017-01-29] MEDS: ALBUT/IPRATROP 3MG/0.5MG NEB 3 ML VIAL INH SCH ×6 (00:30→22:40)
[2017-01-29] MEDS: HydrALAZINE HCL 20 MG/ML VIAL IV. PRN (00:33)
[2017-01-29] MEDS ORDERED: ALBUT/IPRATROP 3MG/0.5MG NEB 3 ML VIAL INH STA (00:55)
[2017-01-29] MEDS ORDERED: ALBUT/IPRATROP 3MG/0.5MG NEB 3 ML VIAL INH PRN (01:00)
[2017-01-29 01:11] LABS: BASO % 0.1 %; BASO ABS # 0.01 K/uL (0-0.2); COMPLETE YES; EOS % 0.1 %; IG% 0.6 %; LYMPH % 11.8 %; LYMPH ABS # 0.81 K/uL (1.2-3.4); MEAN CELL VOLUME 93.1 fL (80-100); MEAN CORPUSCULAR HEMOGLOBIN 31.1 pg (25-34); MEAN CORPUSCULAR HGB CONC 33.4 g/dl (32-36); MEAN PLATELET VOLUME 9.2 fL (7.4-10.4); MONO % 7.9 %; NEUT % 79.5 %; PLATELET COUNT 175 K/uL (130-400); RED BLOOD COUNT 4.08 M/uL (4.7-6.1); WHITE BLOOD COUNT 6.86 K/uL (4.8-10.8)
[2017-01-29] MEDS ORDERED: PIPERACILLIN/TAZOBACTAM 4.5 GM/100ML D5W IV STA (01:15)
--- NOTE | 2017-01-29 01:15 | Progress Note ---
Internal Med Progress Note Date of Service: Jan 29, 2017. Provider Documentation: Made aware by RN of sudden resp distress, coughing spell ff epistaxis episode. Cough productive of brown sputum. AP Epistaxis Poss Aspiration ff HH hold ASA, Heparin for now nebs sta Zosyn for poss aspiration pneumonitis Will relay to AM provider. Vital Signs: Date Time Temp Pulse Resp B/P Pulse Ox O2 Delivery O2 Flow Rate FiO2 01/29/17 01:30 113/67 01/29/17 00:31 88 20 96 Nasal Cannula 3.0 01/29/17 00:28 36.6 81 20 176/91 98 2.0 01/28/17 20:00 Nasal Cannula 3.0 01/28/17 19:30 89 20 96 Nasal Cannula 3.0 01/28/17 16:00 Nasal Cannula 3.0 01/28/17 15:27 81 16 95 Nasal Cannula 3.0 01/28/17 15:00 36.9 81 22 148/90 98 Nasal Cannula 3.0 01/28/17 14:16 36.5 95 18 98 3.0 01/28/17 12:00 Nasal Cannula 3.0 01/28/17 11:32 36.5 95 18 145/117 98 Nasal Cannula 01/28/17 09:44 94 01/28/17 08:00 Nasal Cannula 3.0 01/28/17 07:48 36.8 96 18 189/95 95 Nasal Cannula 3.0 01/28/17 07:03 71 16 94 Nasal Cannula 3.0 Lab Results: Results Past 24 Hours Test 01/28/17 11:14 01/28/17 16:07 01/28/17 20:29 01/29/17 01:03 Range/Units Bedside Glucose 101 137 144 70-99 mg/dl White Blood Count 6.86 4.8-10.8 K/uL Red Blood Count 4.08 4.7-6.1 M/uL Hemoglobin 12.7 14.0-18.0 g/dL Hematocrit 38.0 42-52 % Mean Corpuscular Volume 93.1 80-100 fL Mean Corpuscular Hemoglobin 31.1 25-34 pg Mean Corpuscular Hemoglobin Concent 33.4 32-36 g/dl Platelet Count 175 130-400 K/uL Mean Platelet Volume 9.2 7.4-10.4 fL Neutrophils (%) (Auto) 79.5 % Lymphocytes (%) (Auto) 11.8 % Monocytes (%) (Auto) 7.9 % Eosinophils (%) (Auto) 0.1 % Basophils (%) (Auto) 0.1 % Neutrophils # (Auto) 5.45 1.4-6.5 K/uL Lymphocytes # (Auto) 0.81 1.2-3.4 K/uL Monocytes # (Auto) 0.54 0.11-0.59 K/uL Eosinophils # (Auto) 0.01 0-0.5 K/uL Basophils # (Auto) 0.01 0-0.2 K/uL RDW Standard Deviation 44.9 36.4-46.3 fL RDW Coefficient of Variation 13.3 11.5-14.5 % Immature Granulocyte % (Auto) 0.6 % Immature Granulocyte # (Auto) 0.04 0.00-0.02 K/uL Sodium Level 143 136-145 mmol/L Potassium Level 4.0 3.5-5.1 mmol/L Chloride Level 105 98-107 mmol/L Carbon Dioxide Level 30 21-32 mmol/L Anion Gap 8.0 3-11 mmol/L Blood Urea Nitrogen 26 7-18 mg/dl Creatinine 1.30 0.60-1.40 mg/dl Est Creatinine Clear Calc Drug Dose 43.8 ml/min Estimated GFR () 59.7 Estimated GFR (Non- 51.5 BUN/Creatinine Ratio 19.6 10-20 Random Glucose 100 70-99 mg/dl Calcium Level 8.5 8.5-10.1 mg/dl Magnesium Level 2.2 1.8-2.4 mg/dl Test 01/29/17 05:42 Range/Units Hemoglobin 12.9 14.0-18.0 g/dL Hematocrit 38.8 42-52 %
[2017-01-29] MEDS ORDERED: PIPERACILL/TAZOBAC IV 3.375 GM in DEXTROSE 5% 100ML IV ONE (01:30)
[2017-01-29 01:49] LABS: BUN/CREATININE RATIO 19.6 (10-20); CALCIUM 8.5 mg/dl (8.5-10.1); CREATININE 1.3 mg/dl (0.60-1.40); MAGNESIUM 2.2 mg/dl (1.8-2.4)
[2017-01-29] MEDS: GUAIFENESIN 200 MG TAB PO PRN (04:19)
[2017-01-29] MEDS: LEVOTHYROXINE 50 MCG TAB PO SCH (05:09)
[2017-01-29] MEDS: DOXYCYCLINE IV 100 MG in DEXTROSE 5% 100ML 100 ML IV SCH (05:10)
[2017-01-29] MEDS ORDERED: PIPERACILL/TAZOBAC IV 3.375 GM in DEXTROSE 5% 100ML IV SCH (06:00)
[2017-01-29 06:02] LABS: HEMATOCRIT 38.8 % (42-52)
--- NOTE | 2017-01-29 07:47 | DIAGNOSTIC IMAGING REPORT ---
CHEST ONE VIEW PORTABLE HISTORY: cough COMPARISON: Chest 01/26/2017. FINDINGS: No pneumothorax. No pleural effusions. The heart is normal in size. Patchy bibasilar densities have slightly improved. Severe emphysema. IMPRESSION: Slight improvement in the patchy bibasilar densities. Severe emphysema. Electronically signed by: Alejandro Spence M.D. 01/29/2017 7:46 AM Dictated Date/Time: 01/29/2017 7:44 AM
[2017-01-29] MEDS: CLONIDINE HCL 0.1 MG TAB PO SCH ×2 (07:49→21:44)
[2017-01-29] MEDS: METOPROLOL TARTRATE 50 MG TAB PO SCH ×2 (07:50→21:45)
[2017-01-29] MEDS: GUAIFENESIN 600 MG TABCR PO SCH ×2 (07:51→21:44)
[2017-01-29] MEDS: NYSTATIN SUSP 500,000 U/5 ML UDC PO SCH ×4 (07:51→21:42)
[2017-01-29] MEDS: PANTOprazole SOD 40 MG TAB PO SCH (07:52)
[2017-01-29] MEDS: ALLOPURINOL 300 MG TAB PO SCH (07:53)
[2017-01-29] MEDS: PIPERACILL/TAZOBAC IV 3.375 GM in DEXTROSE 5% 100ML IV SCH ×2 (07:57→17:47)
[2017-01-29] MEDS: INSULIN ASPART 100 UNITS/ML 3 ML PEN SC SCH ×4 (08:52→21:50)
[2017-01-29] MEDS ORDERED: PIPERACILL/TAZOBAC CONSULT ACTIVE PRN (09:00)
[2017-01-29] MEDS ORDERED: GUAIFENESIN SUGAR FREE 100 MG/5 ML UDC PO PRN (09:45)
--- NOTE | 2017-01-29 09:49 | Progress Note ---
Internal Med Progress Note Date of Service: Jan 29, 2017. Provider Documentation: SUBJECTIVE: Patient was confused yesterday, had few hallucinations. Overnight, per night physician had some epistaxis which spontaneously resolved. No more episodes. C/o cough, unable to bring up sputum. SOB + improved but not at baseline yet c/O Discomfort at hernia site- left inguinal with coughing Mental status- Awake, alert oriented x 3 No chest pain, fever, chills, leg swelling On 3 L oxygen (Home-2.5-3 L) OBJECTIVE: Vital Signs-as noted below Exam: General- AAOX2, No acute distress Neck- supple, no JVD Lungs- Air entry bilaterally decreased, wheezing + Heart- regular rhythm; no murmur Abdomen- normal bowel sounds, soft Extremities- Left inguinal hernia, irreducible, tender, No edema Neuro- alert, oriented x 3, no focal deficits grossly Lab data as noted below. ASSESSMENT & PLAN: ACUTE ON CHRONIC HYPOXIC RESPIRATORY FAILURE : Improving Likely secondary to COPD Exacerbation secondary to Community acquired pneumonia (Left Lower Lobe): Home oxygen: 2.5-3 L day/night time. Checks SaO2 by himself and on and off uses oxygen accordingly -Clinically better, but continues to have cough, unable to bring up sputum, SOB , Afebrile, No leucocytosis -Work up- Sputum cx growth normal marv, Blood cx- negative -S/P IV Rocephin and Doxycycline (Day 2) --> On Doxycycline as MRSA +ve. Added IV Zosyn overnight as was concerned about aspiration. -Duonebs QID, Prednisone tapered to 40mg daily -CXR showed new left basal airspace opacities. Repeat CXR- Improvement in basal opacities. -Speech swallow evaluation ordered. Added chest PT, Flutter valve, Incentive spirometry to help loosening up secretions. -Monitor clinically S/P EPISTAXIS EPISODE Overnight and resolved spontaneously -Humidified oxygen + -Heparin sq for dvt prophylaxis discontinued CARMELLA ON CKD-III- Improving -Creatinine 1.5 (Baseline=1.0) -Hold Lasix, S/P IVF -Resumed lisinopril -Avoid nephrotoxic agents HYPOKALEMIA -K+ 3.7 -Continue to monitor BMP CORONARY ARTERY DISEASE -S/P stents x 4 -cont ASA, BB and statin -Asymptomatic CHRONIC DIASTOLIC HEART FAILURE -Does not appear fluid overloaded; CXR no congestion or effusions -last echo EF 55-60% with grade 1 diastolic dysfunction -Continue holding Lasix due to elevated creatinine -Stable DIET-CONTROLLED DM 2 -diet controlled -ISS -Monitor closely while on steroids HYPOTHYROIDISM -Cont levothyroxine HTN -Cont metoprolol, clonidine, lisinopril resumed - IV hydralazine PRN -Continue monitor BP DYSLIPIDEMIA -cont statin DVT PROPHYLAXIS -subq heparin CODE STATUS FULL CODE DISPOSITION To be determined PT/OT on board- Recommends Home PT Discussed with son by bedside, updated Vital Signs: Date Time Temp Pulse Resp B/P Pulse Ox O2 Delivery O2 Flow Rate FiO2 01/29/17 08:23 98 Nasal Cannula 2.0 01/29/17 08:00 Nasal Cannula 3.0 01/29/17 07:59 36.8 96 16 136/79 98 Nasal Cannula 2.0 01/29/17 07:24 83 20 98 Nasal Cannula 3.0 01/29/17 01:30 113/67 01/29/17 00:31 88 20 96 Nasal Cannula 3.0 01/29/17 00:28 36.6 81 20 176/91 98 2.0 01/28/17 20:00 Nasal Cannula 3.0 01/28/17 19:30 89 20 96 Nasal Cannula 3.0 01/28/17 16:00 Nasal Cannula 3.0 01/28/17 15:27 81 16 95 Nasal Cannula 3.0 01/28/17 15:00 36.9 81 22 148/90 98 Nasal Cannula 3.0 01/28/17 14:16 36.5 95 18 98 3.0 01/28/17 12:00 Nasal Cannula 3.0 01/28/17 11:32 36.5 95 18 145/117 98 Nasal Cannula 01/28/17 09:44 94 Lab Results: Results Past 24 Hours Test 01/28/17 11:14 01/28/17 16:07 01/28/17 20:29 01/29/17 01:03 Range/Units Bedside Glucose 101 137 144 70-99 mg/dl White Blood Count 6.86 4.8-10.8 K/uL Red Blood Count 4.08 4.7-6.1 M/uL Hemoglobin 12.7 14.0-18.0 g/dL Hematocrit 38.0 42-52 % Mean Corpuscular Volume 93.1 80-100 fL Mean Corpuscular Hemoglobin 31.1 25-34 pg Mean Corpuscular Hemoglobin Concent 33.4 32-36 g/dl Platelet Count 175 130-400 K/uL Mean Platelet Volume 9.2 7.4-10.4 fL Neutrophils (%) (Auto) 79.5 % Lymphocytes (%) (Auto) 11.8 % Monocytes (%) (Auto) 7.9 % Eosinophils (%) (Auto) 0.1 % Basophils (%) (Auto) 0.1 % Neutrophils # (Auto) 5.45 1.4-6.5 K/uL Lymphocytes # (Auto) 0.81 1.2-3.4 K/uL Monocytes # (Auto) 0.54 0.11-0.59 K/uL Eosinophils # (Auto) 0.01 0-0.5 K/uL Basophils # (Auto) 0.01 0-0.2 K/uL RDW Standard Deviation 44.9 36.4-46.3 fL RDW Coefficient of Variation 13.3 11.5-14.5 % Immature Granulocyte % (Auto) 0.6 % Immature Granulocyte # (Auto) 0.04 0.00-0.02 K/uL Sodium Level 143 136-145 mmol/L Potassium Level 4.0 3.5-5.1 mmol/L Chloride Level 105 98-107 mmol/L Carbon Dioxide Level 30 21-32 mmol/L Anion Gap 8.0 3-11 mmol/L Blood Urea Nitrogen 26 7-18 mg/dl Creatinine 1.30 0.60-1.40 mg/dl Est Creatinine Clear Calc Drug Dose 43.8 ml/min Estimated GFR () 59.7 Estimated GFR (Non- 51.5 BUN/Creatinine Ratio 19.6 10-20 Random Glucose 100 70-99 mg/dl Calcium Level 8.5 8.5-10.1 mg/dl Magnesium Level 2.2 1.8-2.4 mg/dl Test 01/29/17 05:42 01/29/17 07:26 Range/Units Hemoglobin 12.9 14.0-18.0 g/dL Hematocrit 38.8 42-52 % Bedside Glucose 109 70-99 mg/dl
[2017-01-29] MEDS: TAMSULOSIN HCL 0.4 MG CAP PO SCH (21:44)
[2017-01-29] MEDS: PRAVASTATIN SOD 40 MG TAB PO SCH (21:45)
[2017-01-29] MEDS: DOXYCYCLINE HYCLATE 100 MG CAP PO SCH (21:45)
[2017-01-29] MEDS: LISINOPRIL 5 MG TAB PO SCH (21:46)
[2017-01-30] VITALS (7 sets, daily range): BP systolic 150; BP diastolic 94; PULSE 76–89; TEMP 36.4; O2SAT 93–94
[2017-01-30] MEDS: ALBUT/IPRATROP 3MG/0.5MG NEB 3 ML VIAL INH SCH ×4 (03:04→19:15)
[2017-01-30] MEDS: LEVOTHYROXINE 50 MCG TAB PO SCH (05:55)
[2017-01-30 06:58] LABS: BUN/CREATININE RATIO 17.2 (10-20); CALCIUM 8.6 mg/dl (8.5-10.1); CREATININE 1.3 mg/dl (0.60-1.40); POTASSIUM 4.5 mmol/L (3.5-5.1)
[2017-01-30] MEDS: INSULIN ASPART 100 UNITS/ML 3 ML PEN SC SCH ×4 (09:30→21:19)
[2017-01-30] MEDS: CLONIDINE HCL 0.1 MG TAB PO SCH ×2 (09:31→21:13)
[2017-01-30] MEDS: PIPERACILL/TAZOBAC IV 3.375 GM in DEXTROSE 5% 100ML IV SCH ×5 (09:31→23:23)
[2017-01-30] MEDS: METOPROLOL TARTRATE 50 MG TAB PO SCH ×2 (09:32→21:14)
[2017-01-30] MEDS: GUAIFENESIN 600 MG TABCR PO SCH ×2 (09:32→21:13)
[2017-01-30] MEDS: NYSTATIN SUSP 500,000 U/5 ML UDC PO SCH ×4 (09:32→21:12)
[2017-01-30] MEDS: DOXYCYCLINE HYCLATE 100 MG CAP PO SCH ×2 (09:33→21:15)
[2017-01-30] MEDS: ALLOPURINOL 300 MG TAB PO SCH (09:33)
[2017-01-30] MEDS: PANTOprazole SOD 40 MG TAB PO SCH (09:33)
--- NOTE | 2017-01-30 10:10 | Progress Note ---
Internal Med Progress Note Date of Service: Jan 30, 2017. Provider Documentation: SUBJECTIVE: Patient is wake, oriented x 2. C/o cough, unable to bring up sputum. SOB + improved but not at baseline yet. Overall improved. C/O Discomfort at hernia site- left inguinal with coughing Mental status- Awake, alert oriented x 3 No chest pain, fever, chills, leg swelling On 3 L oxygen (Home-2.5-3 L) OBJECTIVE: Vital Signs-as noted below Exam: General- AAOX2, No acute distress Neck- supple, no JVD Lungs- Air entry bilaterally decreased, gurgling, wheezing + Heart- regular rhythm; no murmur Abdomen- normal bowel sounds, soft Extremities- Left inguinal hernia, irreducible, tender, No edema Neuro- alert, oriented x 3, no focal deficits grossly Lab data as noted below. ASSESSMENT & PLAN: ACUTE ON CHRONIC HYPOXIC RESPIRATORY FAILURE : Improved Likely secondary to COPD Exacerbation secondary to Community acquired pneumonia (Left Lower Lobe): Home oxygen: 2.5-3 L day/night time. Checks SaO2 by himself and on and off uses oxygen accordingly -Clinically better, but continues to have cough, unable to bring up sputum, SOB , Afebrile, No leucocytosis -Work up- Sputum cx growth normal marv, Blood cx- negative -S/P IV Rocephin and Doxycycline (Day 2) --> On Doxycycline as MRSA +ve. Added IV Zosyn 01/29/17 as was concerned about aspiration. -Duonebs QID, Prednisone tapered to 40mg daily--> -CXR showed new left basal airspace opacities. Repeat CXR- Improvement in basal opacities. -Speech swallow evaluation ordered- Recommends Barium swallow/Video swallow test today. Chest PT, Flutter valve, Incentive spirometry to help loosening up secretions. -Monitor clinically S/P EPISTAXIS EPISODE Overnight on 01/29/17 and resolved spontaneously -Humidified oxygen + -Heparin sq for dvt prophylaxis discontinued CARMELLA ON CKD-III- Improved -Creatinine 1.5 (Baseline=1.0) --> 1.30 now -Hold Lasix, S/P IVF -Resumed lisinopril -Avoid nephrotoxic agents HYPOKALEMIA -K+ 3.7 -Continue to monitor BMP CORONARY ARTERY DISEASE -S/P stents x 4 -Cont ASA, BB and statin -Asymptomatic CHRONIC DIASTOLIC HEART FAILURE -Does not appear fluid overloaded; CXR no congestion or effusions -last echo EF 55-60% with grade 1 diastolic dysfunction -Continue holding Lasix due to elevated creatinine -Stable DIET-CONTROLLED DM 2 -Diet controlled -ISS -Monitor closely while on steroids HYPOTHYROIDISM -Cont levothyroxine HTN -Cont metoprolol, clonidine, lisinopril resumed - IV hydralazine PRN -Continue monitor BP DYSLIPIDEMIA -cont statin DVT PROPHYLAXIS -subq heparin CODE STATUS FULL CODE DISPOSITION PT/OT on board- Recommends Home PT Discussed with son by bedside yesterday Vital Signs: Date Time Temp Pulse Resp B/P Pulse Ox O2 Delivery O2 Flow Rate FiO2 01/30/17 07:19 85 20 94 Nasal Cannula 3.0 01/30/17 07:10 36.4 79 18 150/94 94 Nasal Cannula 3.0 01/30/17 03:04 85 20 93 Nasal Cannula 3.0 01/30/17 00:00 Nasal Cannula 3.0 01/29/17 23:25 36.9 76 20 163/97 98 Nasal Cannula 3.0 01/29/17 22:41 84 20 96 Nasal Cannula 3.0 01/29/17 21:40 78 143/86 01/29/17 19:26 100 20 97 Nasal Cannula 3.0 01/29/17 16:00 98 Nasal Cannula 3.0 01/29/17 15:21 77 20 98 Nasal Cannula 3.0 01/29/17 15:21 77 16 98 Nasal Cannula 3.0 01/29/17 14:44 36.5 78 20 165/82 96 3.0 01/29/17 11:01 92 20 97 Nasal Cannula 3.0 Lab Results: Results Past 24 Hours Test 01/29/17 11:04 01/29/17 16:23 01/29/17 19:41 01/30/17 05:45 Range/Units Bedside Glucose 121 139 197 70-99 mg/dl Sodium Level 144 136-145 mmol/L Potassium Level 4.5 3.5-5.1 mmol/L Chloride Level 105 98-107 mmol/L Carbon Dioxide Level 35 21-32 mmol/L Anion Gap 4.0 3-11 mmol/L Blood Urea Nitrogen 22 7-18 mg/dl Creatinine 1.30 0.60-1.40 mg/dl Est Creatinine Clear Calc Drug Dose 43.8 ml/min Estimated GFR () 59.7 Estimated GFR (Non- 51.5 BUN/Creatinine Ratio 17.2 10-20 Random Glucose 100 70-99 mg/dl Calcium Level 8.6 8.5-10.1 mg/dl Chemistry Specimen Hemolysis Test 01/30/17 07:06 01/30/17 09:28 Range/Units Bedside Glucose 96 93 70-99 mg/dl
--- NOTE | 2017-01-30 14:32 | DIAGNOSTIC IMAGING REPORT ---
(BARIUM SWALLOW) ESOPHAGUS CLINICAL HISTORY: Dysphagia. Aspiration. COMPARISON STUDY: Modified swallow March 17, 2015. FLUOROSCOPY TIME: 1.3 minutes. FINDINGS: 33 fluoroscopic images were obtained. There was mild esophageal dysmotility. No esophageal mass or stricture was identified. No hiatal hernia was identified. No gastroesophageal reflux was elicited. A 13 mm barium tablet passed into the stomach. IMPRESSION: 1. Mild esophageal dysmotility. 2. No esophageal mass or stricture. Electronically signed by: Jose Donaldson M.D. 01/30/2017 2:30 PM Dictated Date/Time: 01/30/2017 2:27 PM
[2017-01-30] MEDS: PRAVASTATIN SOD 40 MG TAB PO SCH (21:14)
[2017-01-30] MEDS: LISINOPRIL 5 MG TAB PO SCH (21:15)
[2017-01-30] MEDS: TAMSULOSIN HCL 0.4 MG CAP PO SCH (21:15)
[2017-01-31] VITALS (13 sets, daily range): BP systolic 152–195; BP diastolic 83–101; PULSE 70–92; TEMP 36.3–36.9; O2SAT 83–99
[2017-01-31] MEDS: HydrALAZINE HCL 20 MG/ML VIAL IV. PRN (00:01)
[2017-01-31] MEDS: ALBUT/IPRATROP 3MG/0.5MG NEB 3 ML VIAL INH SCH ×5 (02:24→19:13)
[2017-01-31] MEDS: LEVOTHYROXINE 50 MCG TAB PO SCH (06:07)
[2017-01-31] MEDS: PIPERACILL/TAZOBAC IV 3.375 GM in DEXTROSE 5% 100ML IV SCH (08:04)
[2017-01-31] MEDS: GUAIFENESIN 600 MG TABCR PO SCH ×2 (08:04→21:14)
[2017-01-31] MEDS: ALLOPURINOL 300 MG TAB PO SCH (08:05)
[2017-01-31] MEDS: PANTOprazole SOD 40 MG TAB PO SCH (08:06)
[2017-01-31] MEDS: DOXYCYCLINE HYCLATE 100 MG CAP PO SCH ×2 (08:07→21:11)
[2017-01-31] MEDS: CLONIDINE HCL 0.1 MG TAB PO SCH ×2 (08:07→21:15)
[2017-01-31] MEDS: NYSTATIN SUSP 500,000 U/5 ML UDC PO SCH ×4 (08:08→21:14)
[2017-01-31] MEDS: METOPROLOL TARTRATE 50 MG TAB PO SCH ×2 (08:08→21:11)
[2017-01-31] MEDS: INSULIN ASPART 100 UNITS/ML 3 ML PEN SC SCH ×4 (08:21→21:13)
--- NOTE | 2017-01-31 09:22 | Progress Note ---
Internal Med Progress Note Date of Service: Jan 31, 2017. Provider Documentation: SUBJECTIVE: Patient is awake, oriented x 3. Had episode of worsening of SOB overnight, felt better after nebulizer rx. Cough, SOB has improved. Able to bring up some sputum. C/O Discomfort at hernia site- left inguinal with coughing Overall improved. No chest pain, fever, chills, leg swelling. On 3 L oxygen (Home-2.5-3 L) OBJECTIVE: Vital Signs-as noted below Exam: General- AAOX2, No acute distress Neck- supple, no JVD Lungs- Air entry bilaterally decreased, no wheezing, rales Heart- regular rhythm; no murmur Abdomen- normal bowel sounds, soft Extremities- Left inguinal hernia, irreducible, tender, No edema Neuro- alert, oriented x 3, no focal deficits grossly Lab data as noted below. ASSESSMENT & PLAN: ACUTE ON CHRONIC HYPOXIC RESPIRATORY FAILURE : Improved Likely secondary to COPD Exacerbation secondary to Community acquired pneumonia (Left Lower Lobe): Home oxygen: 2.5-3 L day/night time. Checks SaO2 by himself and on and off uses oxygen accordingly -Clinically better. Afebrile, No leucocytosis -Work up- Sputum cx growth normal marv, Blood cx- negative -S/P IV Rocephin and Doxycycline (Day 2) --> On Doxycycline as MRSA +ve. Added IV Zosyn 01/29/17 as was concerned about aspiration---> Okay to discontinue as clinically improved. -Duonebs QID, Prednisone PO- taper. -CXR showed new left basal airspace opacities. Repeat CXR- Improvement in basal opacities. -Speech swallow evaluation ordered- Barium swallow- mild esophageal dysmotility . Chest PT, Flutter valve, Incentive spirometry to help loosening up secretions. S/P EPISTAXIS EPISODE Overnight on 01/29/17 and resolved spontaneously -Humidified oxygen + -Heparin sq for dvt prophylaxis discontinued CARMELLA ON CKD-III- Improved -Creatinine 1.5 (Baseline=1.0) --> 1.30 -Hold lasix, S/P IVF -Resumed lisinopril -Avoid nephrotoxic agents HYPOKALEMIA -K+ 3.7 on presentation -Continue to monitor BMP CORONARY ARTERY DISEASE -S/P stents x 4 -Cont ASA, BB and statin -Asymptomatic CHRONIC DIASTOLIC HEART FAILURE -Does not appear fluid overloaded; CXR no congestion or effusions -last echo EF 55-60% with grade 1 diastolic dysfunction -Continue hold Lasix. -Stable DIET-CONTROLLED DM 2 -Diet controlled -ISS -Monitor closely while on steroids HYPOTHYROIDISM -Cont levothyroxine HTN -Cont metoprolol, clonidine, lisinopril resumed - IV hydralazine PRN -Continue monitor BP DYSLIPIDEMIA -cont statin DVT PROPHYLAXIS -subq heparin CODE STATUS FULL CODE DISPOSITION PT/OT on board- Recommends Home PT Likely discharge in AM. Will monitor as had a bout of SOB overnight Vital Signs: Date Time Temp Pulse Resp B/P Pulse Ox O2 Delivery O2 Flow Rate FiO2 01/31/17 07:20 79 20 95 Nasal Cannula 3.0 01/31/17 07:16 36.4 70 20 152/94 97 Room Air 01/31/17 01:50 88 20 95 Nasal Cannula 3.0 01/31/17 00:45 165/83 01/31/17 00:35 36.5 78 20 96 2.0 01/31/17 00:05 192/98 01/31/17 00:00 95 Nasal Cannula 3.0 01/30/17 20:00 Nasal Cannula 01/30/17 19:15 89 20 94 Nasal Cannula 3.0 01/30/17 15:21 88 20 93 Nasal Cannula 3.0 01/30/17 15:00 36.4 76 22 150/94 93 Nasal Cannula 3.0 01/30/17 14:45 Nasal Cannula 2.0 01/30/17 11:34 85 20 94 Nasal Cannula 3.0 01/30/17 09:20 Nasal Cannula 2.0 Lab Results: Results Past 24 Hours Test 01/30/17 09:28 01/30/17 11:31 01/30/17 16:26 01/30/17 20:23 Range/Units Bedside Glucose 93 117 224 229 70-99 mg/dl Test 01/31/17 07:31 Range/Units Bedside Glucose 100 70-99 mg/dl
[2017-01-31] MEDS: TAMSULOSIN HCL 0.4 MG CAP PO SCH (21:11)
[2017-01-31] MEDS: LISINOPRIL 5 MG TAB PO SCH (21:14)
[2017-01-31] MEDS: PRAVASTATIN SOD 40 MG TAB PO SCH (21:15)
[2017-02-01] VITALS (8 sets, daily range): BP systolic 143–175; BP diastolic 79–91; PULSE 76–80; TEMP 36.3; O2SAT 92–96
[2017-02-01] MEDS: HydrALAZINE HCL 20 MG/ML VIAL IV. PRN (00:23)
[2017-02-01] MEDS: ALBUT/IPRATROP 3MG/0.5MG NEB 3 ML VIAL INH SCH ×3 (02:29→11:50)
[2017-02-01 05:57] LABS: HEMATOCRIT 39.9 % (42-52); MEAN CELL VOLUME 93.7 fL (80-100); MEAN CORPUSCULAR HEMOGLOBIN 30.5 pg (25-34); MEAN CORPUSCULAR HGB CONC 32.6 g/dl (32-36); MEAN PLATELET VOLUME 9.6 fL (7.4-10.4); PLATELET COUNT 225 K/uL (130-400); RED BLOOD COUNT 4.26 M/uL (4.7-6.1); WHITE BLOOD COUNT 8.75 K/uL (4.8-10.8)
[2017-02-01 06:29] LABS: CALCIUM 8.7 mg/dl (8.5-10.1); CREATININE 1.1 mg/dl (0.60-1.40); POTASSIUM 3.4 mmol/L (3.5-5.1)
[2017-02-01] MEDS: LEVOTHYROXINE 50 MCG TAB PO SCH (06:32)
[2017-02-01] MEDS: ALLOPURINOL 300 MG TAB PO SCH (08:16)
[2017-02-01] MEDS: PANTOprazole SOD 40 MG TAB PO SCH (08:17)
[2017-02-01] MEDS: GUAIFENESIN 600 MG TABCR PO SCH (08:18)
[2017-02-01] MEDS: CLONIDINE HCL 0.1 MG TAB PO SCH (08:18)
[2017-02-01] MEDS: DOXYCYCLINE HYCLATE 100 MG CAP PO SCH (08:19)
[2017-02-01] MEDS: METOPROLOL TARTRATE 50 MG TAB PO SCH (08:19)
[2017-02-01] MEDS: NYSTATIN SUSP 500,000 U/5 ML UDC PO SCH ×2 (08:20→13:00)
[2017-02-01] MEDS: INSULIN ASPART 100 UNITS/ML 3 ML PEN SC SCH ×2 (08:26→12:28)
--- NOTE | 2017-02-01 09:56 | Progress Note ---
Internal Med Progress Note Date of Service: Feb 01, 2017. Provider Documentation: SUBJECTIVE: Patient is awake, oriented x 3 and doing better. Does have Cough, SOB (chronic) which has improved. Able to bring up some sputum - clear C/O Discomfort at hernia site- left inguinal with coughing Overall improved. No chest pain, fever, chills, leg swelling. On 3 L oxygen (Home-2.5-3 L) OBJECTIVE: Vital Signs-as noted below Exam: General- AAOX2, No acute distress Neck- supple, no JVD Lungs- Air entry bilaterally decreased, no wheezing, rales Heart- regular rhythm; no murmur Abdomen- normal bowel sounds, soft Extremities- Left inguinal hernia, irreducible, tender, No edema Neuro- alert, oriented x 3, no focal deficits grossly Lab data as noted below. ASSESSMENT & PLAN: ACUTE ON CHRONIC HYPOXIC RESPIRATORY FAILURE : Resolved Likely secondary to COPD Exacerbation secondary to Community acquired pneumonia (Left Lower Lobe): Home oxygen: 2.5-3 L day/night time. Checks SaO2 by himself and on and off uses oxygen accordingly -Clinically better, but does have chronic symptoms due to severe COPD at baseline. Afebrile, No leucocytosis -Work up- Sputum cx growth normal marv, Blood cx- negative -S/P IV Rocephin and Doxycycline (Day 2) --> On Doxycycline as MRSA +ve. Added IV Zosyn 01/29/17 as was concerned about aspiration---> Okay to discontinue as clinically improved. Finish course of Doxycycline x 1 more day to complete course of 7 days of antibiotics. -Duonebs QID, Prednisone PO- taper. -CXR showed new left basal airspace opacities. Repeat CXR- Improvement in basal opacities. -Speech swallow evaluation ordered- Barium swallow- mild esophageal dysmotility . Chest PT, Flutter valve, Incentive spirometry to help loosening up secretions. S/P EPISTAXIS EPISODE Overnight on 01/29/17 and resolved spontaneously -Humidified oxygen + -Heparin sq for dvt prophylaxis discontinued CARMELLA ON CKD-III- Improved -Creatinine 1.5 (Baseline=1.0) --> 1.30 -Hold lasix, S/P IVF--> Ok to restart lasix -Resumed lisinopril -Avoid nephrotoxic agents HYPOKALEMIA -K+ 3.7 on presentation -Replace -Monitor CORONARY ARTERY DISEASE -S/P stents x 4 -Cont ASA, BB and statin -Asymptomatic CHRONIC DIASTOLIC HEART FAILURE -Does not appear fluid overloaded; CXR no congestion or effusions -last echo EF 55-60% with grade 1 diastolic dysfunction -Held lasix- okay to restart lasix -Stable DIET-CONTROLLED DM 2 -Diet controlled -ISS -Monitor closely while on steroids HYPOTHYROIDISM -Cont levothyroxine HTN -Cont metoprolol, clonidine, lisinopril resumed - IV hydralazine PRN DYSLIPIDEMIA -cont statin DVT PROPHYLAXIS -subq heparin - held due to one epistaxis episode CODE STATUS FULL CODE DISPOSITION PT/OT on board- [facility]. Son will transport Ok to discharge today Discussed with son by bedside. Updated about discharge plan Vital Signs: Date Time Temp Pulse Resp B/P Pulse Ox O2 Delivery O2 Flow Rate FiO2 02/01/17 07:56 36.3 76 24 159/91 96 Nasal Cannula 3.0 02/01/17 07:40 77 18 96 Nasal Cannula 3.0 02/01/17 06:34 79 143/79 02/01/17 02:29 80 18 96 Nasal Cannula 3.0 02/01/17 02:14 79 175/89 96 Nasal Cannula 3.0 01/31/17 23:59 Nasal Cannula 3.0 01/31/17 23:51 36.9 82 20 195/101 99 Nasal Cannula 3.0 01/31/17 20:00 Nasal Cannula 3.0 01/31/17 19:14 77 18 95 Nasal Cannula 3.0 01/31/17 16:00 Nasal Cannula 3.0 01/31/17 15:40 72 18 95 Nasal Cannula 3.0 01/31/17 14:51 36.3 79 20 165/89 97 Nasal Cannula 2.0 01/31/17 11:15 72 18 96 Nasal Cannula 3.0 01/31/17 10:02 92 83 Lab Results: Results Past 24 Hours Test 01/31/17 11:15 01/31/17 16:36 01/31/17 20:23 02/01/17 05:23 Range/Units Bedside Glucose 123 192 207 70-99 mg/dl White Blood Count 8.75 4.8-10.8 K/uL Red Blood Count 4.26 4.7-6.1 M/uL Hemoglobin 13.0 14.0-18.0 g/dL Hematocrit 39.9 42-52 % Mean Corpuscular Volume 93.7 80-100 fL Mean Corpuscular Hemoglobin 30.5 25-34 pg Mean Corpuscular Hemoglobin Concent 32.6 32-36 g/dl RDW Standard Deviation 45.7 36.4-46.3 fL RDW Coefficient of Variation 13.5 11.5-14.5 % Platelet Count 225 130-400 K/uL Mean Platelet Volume 9.6 7.4-10.4 fL Sodium Level 145 136-145 mmol/L Potassium Level 3.4 3.5-5.1 mmol/L Chloride Level 105 98-107 mmol/L Carbon Dioxide Level 34 21-32 mmol/L Anion Gap 6.0 3-11 mmol/L Blood Urea Nitrogen 18 7-18 mg/dl Creatinine 1.10 0.60-1.40 mg/dl Est Creatinine Clear Calc Drug Dose 51.8 ml/min Estimated GFR () 73.1 Estimated GFR (Non- 63.1 BUN/Creatinine Ratio 16.0 10-20 Random Glucose 110 70-99 mg/dl Calcium Level 8.7 8.5-10.1 mg/dl Test 02/01/17 07:35 Range/Units Bedside Glucose 98 70-99 mg/dl
[2017-02-01] MEDS ORDERED: PRED10TA PO (10:01)
[2017-02-01] MEDS ORDERED: DXY100 PO (10:01)
[2017-02-01] MEDS ORDERED: IPRASOL4 INH (10:01)
[2017-02-01] MEDS ORDERED: GFNSR600 PO (10:01)
[2017-02-01] MEDS ORDERED: POTA10CA28 PO (10:01)
--- NOTE | 2017-02-01 10:09 | Discharge Instructions ---
Discharge Instructions Date of Service Feb 01, 2017. Admission Reason for Admission: [place] Lobe Pneumonia Discharge Discharge Diagnosis / Problem: 1. COPD exacerbation 2 . Pneumonia Discharge Goals Goal(s): Improve disease control, Diagnostic testing, Therapeutic intervention , Prevent Disease Progression Activity Recommendations Activity Limitations: resume your previous activity ( TOLERATED PRIOR TO ADMISSION; pt/ot RECOMMENDED) . Instructions / Follow-Up Instructions / Follow-Up MEDICATION CHANGES: 1. New medication: Prednisone 30 mg daily x 2 days followed by 20 mg daily x 3 days followed by 10 mg daily x days and than discontinue 2. New medication: Doxycycline 100 mg PO BID X 1 more day to complete course of 7 days of antibiotics FOLLOW UP: Follow up with PCP in 1 week OXYGEN -None at rest -2 L on activity Current Hospital Diet Patient's current hospital diet: Diabetes Type 2 Diet, Low Sodium Diet (2gm Na) Discharge Diet Recommended Diet: AHA Diet (Heart Healthy), Low Sodium Diet (2gm Na), Diabetes Type 2 Diet Pending Studies Studies pending at discharge: no Medical Emergencies . Who to Call and When: Medical Emergencies: If at any time you feel your situation is an emergency, please call 911 immediately. . Non-Emergent Contact Non-Emergency issues call your: Primary Care Provider . . "Provider Documentation" section prepared by Anahy Elkins. VTE Core Measure Inpt VTE Proph given/why not?: Unfractionated heparin SQ (Later discontinued due to epistaxis), T.E.D. Stockings, SCD's
[2017-02-01] MEDS ORDERED: PRLSR20 PO (10:14)
--- NOTE | 2017-02-01 10:14 | Discharge Summary ---
Discharge Summary Date of Service Feb 01, 2017. Discharge Summary Admission Date: Jan 26, 2017 at 15:12 Discharge Date: Feb 01, 2017 Discharge Disposition: [facility] facility ([facility]) Principal Diagnosis: 1. COPD exacerbation 2. Community acquired pneumonia 3. CARMELLA on CKD-III 4. Hypokalemia Secondary Diagnoses/Problems: 1. Hx of CAD 2. Chronic diastolic CHF 3. Hypothyroidism 4. Hypertension 5. Dyslipidemia 6. DM-2, Diet controlled Procedures: Tele monitoring cxr barium swallow Nebs IV steroids Antibiotics PT/OT Speech evaluation Pending Studies/Follow-Up: Instructions / Follow-Up Instructions / Follow-Up MEDICATION CHANGES: 1. New medication: Prednisone 30 mg daily x 2 days followed by 20 mg daily x 3 days followed by 10 mg daily x days and than discontinue 2. New medication: Doxycycline 100 mg PO BID X 1 more day to complete course of 7 days of antibiotics 3. New medication: Omeprazole 20 mg daily while he is on prednisone 4. New medication: Kdur 20 meq daily while on diuretics FOLLOW UP: Follow up with PCP in 1 week OXYGEN -None at rest -2 L on activity Medication Reconciliation New Medications: Prednisone Tab (Prednisone) 10 Mg Tab 10 MG PO UD for 30 Days, TAB Take 30 mg daily x 2 days followed by 20 mg daily x 3 days followed by 10 mg daily x 3 days and than discontinue. Doxycycline Hyclate (Doxycycline Hyclate) 100 Mg Cap 100 MG PO BID for 1 Day, #2 CAP Guaifenesin Ext Rel (Mucinex Ext Rel) 600 Mg Tabcr 600 MG PO Q12 for 4 Days Potassium Chloride (Micro-K Ext Rel) 10 Meq Capcr 20 MEQ PO DAILY for 30 Days Changed Medications: Ipratropium-Albuterol (Duoneb) 3 Ml Nebu 1 TREATMENT INH Q6H PRN for sob/wheezing for 15 Days, INHA 2 Refills ( Medication details modified) may also use every 2-4 hours PRN for shortness of breath or wheezing Continued Medications: Allopurinol (Zyloprim) 300 Mg Tab 300 MG PO DAILY, TAB Aspirin (Aspirin Ec) 81 Mg Tab 81 MG PO HS Clonidine Hcl (Catapres) 0.2 Mg Tab 0.2 MG PO BID, TAB Furosemide (Furosemide) 20 Mg Tab 20 MG PO QAM Furosemide (Furosemide) 40 Mg Tab 40 MG PO DAILY Ipratropium-Albuterol (Combivent Respimat) 1 Aer Aer 1 PUFFS INH QID PRN for Wheezing, INH Levothyroxine Sodium (Synthroid) 50 Mcg Tab 50 MCG PO DAILY, TAB Lisinopril (Prinivil) 5 Mg Tab 5 MG PO PM, TAB Metoprolol Tartrate (Lopressor) (Lopressor) 50 Mg Tab 50 MG PO BID, #180 Oxygen (Oxygen) Gas 2 LITERS NA UD for 30 Days OXYGEN 2LTS VIA NASAL CANULA AT REST AND 3LTS WHILE AMBULATING CONTINOUSLY Pravastatin Sodium (Pravastatin Sodium) 40 Mg Tab 40 MG PO HS Tamsulosin Hcl (Flomax) 0.4 Mg Cap 0.4 MG PO PM, CAP Admission Information HPI (per Admitting provider): This is an 81 y/o male with PMHx of CAD s/p stents, diet-controlled DM 2, COPD on 2L O2 HS, HTN, Dyslipidemia and other problems as outlined below who presents to the ED c/o SOB x 2 days. Pt reports that 2 days ago he developed worsening SOB that is aggravated with exertion. He has been using his nebulizer and inhalers which is only providing temporary relief. Sxs are assoc with wheezing and prod cough. Pt has a history of COPD on 2L O2 HS and PRN during the day. For the past 2 days he has been using his O2 continuously. Pt has a history of CAD with 4 stents placed. Pt denies fever/chills, diaphoresis, chest pain, palpitations, abd pain, N/V, bowel or bladder issues, LE edema ,calf pain , lightheadedness/dizziness. In the ED, pt is hypoxic to 87% on room air. He is afebrile with no leukocytosis. K+ 3.1. creat 1.5. CXR + L basilar opacity. Pt received duoneb and solu-Medrol in the ED with some relief. He will be admitted for further evaluation and treatment. Physical Exam (per Admitting): General Appearance: WD/WN, no apparent distress, + pertinent finding (Pt is sitting in bed with son at bedside ) Head: normocephalic, atraumatic Eyes: normal inspection ENT: hearing grossly normal Neck: supple Respiratory/Chest: chest non-tender, no respiratory distress, no accessory muscle use, + wheezing, + pertinent finding (breath sounds diminished in bases bilat) Cardiovascular: regular rate, rhythm, no edema, no murmur Abdomen/GI: normal bowel sounds, non tender, soft Back: normal inspection Extremities/Musculoskelatal: normal inspection, no calf tenderness, no pedal edema Neurologic/Psych: alert, normal mood/affect, oriented x 3 Skin: normal color, warm/dry Hospital Course ACUTE ON CHRONIC HYPOXIC RESPIRATORY FAILURE : Resolved Likely secondary to COPD Exacerbation secondary to Community acquired pneumonia (Left Lower Lobe): Home oxygen: 2.5-3 L day/night time. Checks SaO2 by himself and on and off uses oxygen accordingly. Now at rest 92%, no oxygen, 2 L on activity -Clinically better, but does have chronic symptoms due to severe COPD at baseline. Afebrile, No leucocytosis -Work up- Sputum cx growth normal marv, Blood cx- negative -S/P IV Rocephin and Doxycycline (Day 2) --> On Doxycycline as MRSA +ve. Added IV Zosyn 01/29/17 as was concerned about aspiration---> Okay to discontinue as clinically improved. Finish course of Doxycycline x 1 more day to complete course of 7 days of antibiotics. -Duonebs QID, Prednisone PO- taper. -CXR showed new left basal airspace opacities. Repeat CXR- Improvement in basal opacities. -Speech swallow evaluation ordered- Barium swallow- Mild esophageal dysmotility , Slippery regular diet . Chest PT, Flutter valve, Incentive spirometry to help loosening up secretions. CARMELLA ON CKD-III- Improved -Creatinine 1.5 (Baseline=1.0) --> 1.30 -Hold lasix, S/P IVF--> Ok to restart lasix -Resumed lisinopril -Avoid nephrotoxic agents HYPOKALEMIA -K+ 3.7 on presentation -Replace -Monitor S/P EPISTAXIS EPISODE Overnight on 01/29/17 and resolved spontaneously -Humidified oxygen + -Heparin sq for dvt prophylaxis discontinued CORONARY ARTERY DISEASE -S/P stents x 4 -Cont ASA, BB and statin -Asymptomatic CHRONIC DIASTOLIC HEART FAILURE -Does not appear fluid overloaded; CXR no congestion or effusions -last echo EF 55-60% with grade 1 diastolic dysfunction -Held lasix- okay to restart lasix -Stable DIET-CONTROLLED DM 2 -Diet controlled -ISS -Monitor closely while on steroids HYPOTHYROIDISM -Cont levothyroxine HTN -Cont metoprolol, clonidine, lisinopril resumed - IV hydralazine PRN DYSLIPIDEMIA -cont statin DVT PROPHYLAXIS -subq heparin - held due to one epistaxis episode CODE STATUS FULL CODE DISPOSITION PT/OT on board- [facility]. Son will transport Ok to discharge today Discussed with son by bedside. Updated about discharge plan Total time spent on discharge = 35 minutes This includes examination of the patient, discharge planning, medication reconciliation, and communication with other providers. Discharge Instructions Discharge Goals Goal(s): Improve disease control, Diagnostic testing, Therapeutic intervention , Prevent Disease Progression Activity Recommendations Activity Limitations: resume your previous activity ( TOLERATED PRIOR TO ADMISSION; pt/ot RECOMMENDED) . Instructions / Follow-Up Instructions / Follow-Up MEDICATION CHANGES: 1. New medication: Prednisone 30 mg daily x 2 days followed by 20 mg daily x 3 days followed by 10 mg daily x days and than discontinue 2. New medication: Doxycycline 100 mg PO BID X 1 more day to complete course of 7 days of antibiotics FOLLOW UP: Follow up with PCP in 1 week OXYGEN -None at rest -2 L on activity Current Hospital Diet Patient's current hospital diet: Diabetes Type 2 Diet, Low Sodium Diet (2gm Na) Discharge Diet Recommended Diet: AHA Diet (Heart Healthy), Low Sodium Diet (2gm Na), Diabetes Type 2 Diet Pending Studies Studies pending at discharge: no Medical Emergencies . Who to Call and When: Medical Emergencies: If at any time you feel your situation is an emergency, please call 911 immediately. . Non-Emergent Contact Non-Emergency issues call your: Primary Care Provider . . "Provider Documentation" section prepared by Anahy Elkins. VTE Core Measure Inpt VTE Proph given/why not?: Unfractionated heparin SQ (Later discontinued due to epistaxis), T.E.Aparna Stockings, SCD's
[2017-02-01] MEDS ORDERED: POTASSIUM CHLORIDE 10 MEQ TABCR PO ONE (10:15)
[2017-06-06] MEDS ORDERED: VNTHFA/IN INH (14:51)
[2017-06-06] MEDS ORDERED: ADVIN50/60 INH (14:51)
[2017-06-14] MEDS ORDERED: OXYC-57 PO (09:32)
== END 2017-02-01 14:30 | DRG 189 ==
LOC: ENRESERVTM → ENRESERVDT → C.EDB 11:26 → C.2T 15:12 → C.MS2W 01-28 14:09
PROVIDERS: ADMIT Internal Medicine; ATTEND Internal Medicine
DX: J96.21 Acute and chronic respiratory failure with hypoxia (principal); J18.9 Pneumonia, unspecified organism; J44.1 Chronic obstructive pulmonary disease with (acute) exacerbation; I50.32 Chronic diastolic (congestive) heart failure; N17.9 Acute kidney failure, unspecified; N18.3 Chronic kidney disease, stage 3 (moderate); E87.6 Hypokalemia; I25.10 Atherosclerotic heart disease of native coronary artery without angina pectoris; I12.9 Hypertensive chronic kidney disease with stage 1 through stage 4 chronic kidney disease, or unspecified chronic kidney disease; E78.5 Hyperlipidemia, unspecified; E11.9 Type 2 diabetes mellitus without complications; R04.0 Epistaxis; Z82.49 Family history of ischemic heart disease and other diseases of the circulatory system; Z82.0 Family history of epilepsy and other diseases of the nervous system; Z87.891 Personal history of nicotine dependence; Z79.82 Long term (current) use of aspirin; Z98.61 Coronary angioplasty status

== ENCOUNTER → 2017-05-27 | Outpatient (CLI) | payer OTHER ==
[~2017-05-27] MED LIST changes: +ADVIN50/60 INH; +DXY100 PO; +GFNSR600 PO; +LEVO50TA PO; -LISI-461 PO; +LISI5TAB PO; -NRV/10 PO; +OPTIRAY 320 IV PRN; +OXYC-57 PO; +POTA10CA28 PO; -SYN25 PO; +TAMS0.4C38 PO; +VNTHFA/IN INH
--- NOTE | 2017-05-27 14:01 | DIAGNOSTIC IMAGING REPORT ---
CT ANGIOGRAM OF THE ABDOMEN AND PELVIS COMBO CLINICAL HISTORY: Abdominal aorta aneurysm. COMPARISON STUDY: Abdominal CT dated 06/13/2014. TECHNIQUE: Before and following the IV administration of 94 cc of Optiray 320, CT angiogram of the abdomen and pelvis was performed from the lung bases the proximal femora. Images are reviewed in the axial, sagittal, and coronal planes. 3-D MIPS images are created and assessed. IV contrast was administered without complication. A dose lowering technique was utilized adhering to the principles of ALARA. CT DOSE: 854.98 mGy.cm FINDINGS: Lower chest: The heart is enlarged and there is a small pericardial effusion. The coronary arteries are densely calcified. Advanced emphysema is noted at the lung bases. There is no airspace consolidation typical for pneumonia or pleural effusion. Bibasilar scarring versus atelectasis is identified. Liver: The contrast-enhanced liver is normal in size, contour, and attenuation. There is no intrahepatic or ductal dilatation. The main portal veins appear patent. Gallbladder: There are layering gallstones identified. There is no CT evidence of acute cholecystitis. Spleen: Normal in size and attenuation noting heterogeneous arterial phase enhancement. Pancreas: Atrophic and grossly unremarkable. Adrenal glands: A 1.5 cm left adrenal nodule meets CT criteria for a fat-containing adenoma. There is also mild nodularity of the right adrenal gland. Kidneys: The contrast enhanced kidneys are atrophic and without hydronephrosis. There is a 4 mm nonobstructing calculus in the left lower pole seen on the unenhanced series. No right renal calculi are identified. The kidneys enhance symmetrically. Abdominal aorta and iliac arteries: There is advanced atherosclerotic calcification of the abdominal aorta and iliac arteries. There is an infrarenal abdominal aortic aneurysm which measures up to 5.4 cm in AP diameter and 5.5 cm in transverse diameter. There is thrombus within the aneurysm sac, and the aneurysm extends approximate 7.5 cm in craniocaudal length. There is mild aneurysmal dilatation at the level of the superior mesenteric artery where the abdominal aorta measures up to 3.5 cm. The abdominal aorta is patent. No dissection is seen. Advanced atherosclerotic plaque is seen throughout the iliac vessels. The iliac arteries are normal in caliber. 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 Major branches of the abdominal aorta: The celiac trunk is widely patent. 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 The superior mesenteric artery is widely patent. 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 There is a replaced right hepatic artery which arises from the superior mesenteric artery. The left hepatic artery arises from the left gastric artery. The splenic artery is patent . 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 There is flow distally within the vessel, likely secondary to retrograde opacification. There is a single left renal artery and 2 right renal arteries. The left renal artery is widely patent. The left renal arteries arise just above the aneurysm sac and show less than 50% stenosis at the origin. Both vessels are patent. Bowel: The small bowel and colon are normal in course and caliber. There is advanced colonic diverticulosis without CT evidence of acute diverticulitis. The appendix is well-visualized and normal. Peritoneum: There is no intraperitoneal free air or abdominal ascites. A fat-containing umbilical hernia is noted. Lymphadenopathy: None. Pelvic viscera: The prostate gland is markedly enlarged and heterogeneous, measuring up to 6.5 cm in transverse diameter. There is medial lobe hypertrophy, and coarse calcifications are noted within the gland. The bladder wall appears mildly thickened and trabeculated consistent with chronic outlet obstruction. Calcification of the penile tunica suggesting Peyronie's disease. There is a small fat-containing right inguinal hernia. Skeletal structures: The skeletal structures are osteopenic. No lytic or blastic bony lesions are seen. There are healed right-sided rib fractures. Moderate lumbosacral spondylosis and scoliosis is observed. IMPRESSION: 1. Cardiomegaly and advanced emphysema. 2. There is a 5.4 x 5.5 cm infrarenal abdominal aneurysm as detailed above. This has increased in size from 06/13/2014 when it measured 4.0 x 3.8 cm. 3. There is mild aneurysmal dilatation of the proximal abdominal aorta. This measures up to 3.5 cm at the level of the superior mesenteric artery. 4. 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 Both vessels are widely patent. 5. 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 6. There is less than 50% stenosis at the origin of paired right renal arteries. 7. Cholelithiasis. 8. Advanced colonic diverticulosis without CT evidence of acute diverticulitis. 9. Prostatomegaly with evidence of chronic bladder obstruction. 10. 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 11. Nonobstructing left renal calculus. 12. Additional findings as above. Electronically signed by: Neville Silva M.D. 05/27/2017 1:59 PM Dictated Date/Time: 05/27/2017 1:37 PM
== END | disposition home or self-care (01) ==
LOC: C.CTS 12:56
PROVIDERS: ATTEND Surgery Vascular Surgery
DX: I71.4 Abdominal aortic aneurysm, without rupture (principal)

== ENCOUNTER 2017-06-13 05:32 | Inpatient (IN) | payer OTHER ==
[2017-06-06 14:10] VITALS: BMI 24.0
--- NOTE | 2017-06-06 15:11 | PAT Medication Instructions ---
Service Date Jun 06, 2017. Current Home Medication List Albuterol Hfa (Ventolin Hfa), 2-4 PUFFS INH Q6H PRN for shortness of breath Allopurinol (Zyloprim), 300 MG PO QAM Aspirin (Aspirin Ec), 81 MG PO HS Clonidine Hcl (Catapres), 0.2 MG PO BID Fluticasone Prop/Salmeterol (Advair Diskus 500/50 60 Dose), 1 PUFFS INH BID Furosemide (Furosemide), 20 MG PO QAM Furosemide (Furosemide), 40 MG PO QAM Home O2 Therapy (Oxygen), 2 LITERS NA UD Ipratropium-Albuterol (Combivent Respimat), 1 PUFFS INH QID PRN for Wheezing Ipratropium-Albuterol (Duoneb), 1 TREATMENT INH Q6H PRN for sob/wheezing Levothyroxine Sodium (Synthroid), 50 MCG PO QAM Lisinopril (Prinivil), 5 MG PO PM Metoprolol Tartrate (Lopressor) (Lopressor), 50 MG PO BID Potassium Chloride (Micro-K Ext Rel), 20 MEQ PO DAILY Pravastatin Sodium (Pravastatin Sodium), 40 MG PO HS Tamsulosin Hcl (Flomax), 0.4 MG PO PM Medication Instructions For Your Scheduled Surgery - Check with surgeon/php lamp developer for instructions: Aspirin (Aspirin Ec), 81 MG PO HS - Hold the following medications the morning of surgery: Potassium Chloride (Micro-K Ext Rel), 20 MEQ PO DAILY Furosemide (Furosemide), 20 MG PO QAM Furosemide (Furosemide), 40 MG PO QAM - Take the following medications the morning of surgery with a sip of water: Albuterol Hfa (Ventolin Hfa), 2-4 PUFFS INH Q6H PRN for shortness of breath (if needed) Allopurinol (Zyloprim), 300 MG PO QAM Clonidine Hcl (Catapres), 0.2 MG PO BID Fluticasone Prop/Salmeterol (Advair Diskus 500/50 60 Dose), 1 PUFFS INH BID Home O2 Therapy (Oxygen), 2 LITERS NA UD Ipratropium-Albuterol (Combivent Respimat), 1 PUFFS INH QID PRN for Wheezing ( if needed) Ipratropium-Albuterol (Duoneb), 1 TREATMENT INH Q6H PRN for sob/wheezing (if needed) Levothyroxine Sodium (Synthroid), 50 MCG PO QAM Metoprolol Tartrate (Lopressor) (Lopressor), 50 MG PO BID - Hold the following medications as scheduled the night before surgery: Lisinopril (Prinivil), 5 MG PO PM - Take the following medications as scheduled the night before surgery: Albuterol Hfa (Ventolin Hfa), 2-4 PUFFS INH Q6H PRN for shortness of breath (if needed) Clonidine Hcl (Catapres), 0.2 MG PO BID Fluticasone Prop/Salmeterol (Advair Diskus 500/50 60 Dose), 1 PUFFS INH BID Home O2 Therapy (Oxygen), 2 LITERS NA UD Ipratropium-Albuterol (Combivent Respimat), 1 PUFFS INH QID PRN for Wheezing ( if needed) Ipratropium-Albuterol (Duoneb), 1 TREATMENT INH Q6H PRN for sob/wheezing (if needed) Metoprolol Tartrate (Lopressor) (Lopressor), 50 MG PO BID Pravastatin Sodium (Pravastatin Sodium), 40 MG PO HS Tamsulosin Hcl (Flomax), 0.4 MG PO PM If you have any questions please call us at [phone] or [phone] or [phone]
[2017-06-06 15:40] LABS: BASO % 0.3 %; BASO ABS # 0.02 K/uL (0-0.2); COMPLETE YES; EOS % 3.9 %; HEMATOCRIT 38.1 % (42-52); IG% 0.3 %; LYMPH % 17.1 %; LYMPH ABS # 1.08 K/uL (1.2-3.4); MEAN CELL VOLUME 94.3 fL (80-100); MEAN CORPUSCULAR HEMOGLOBIN 30.9 pg (25-34); MEAN CORPUSCULAR HGB CONC 32.8 g/dl (32-36); MEAN PLATELET VOLUME 9.5 fL (7.4-10.4); MONO % 9.3 %; NEUT % 69.1 %; PLATELET COUNT 167 K/uL (130-400); RED BLOOD COUNT 4.04 M/uL (4.7-6.1); WHITE BLOOD COUNT 6.33 K/uL (4.8-10.8)
--- NOTE | 2017-06-06 15:47 | DIAGNOSTIC IMAGING REPORT ---
CHEST PREADMISSION(PA/LAT) HISTORY: Preop. COMPARISON: Chest 01/29/2017. FINDINGS: The heart is normal in size. No pneumothorax. No pleural effusions. Severe emphysema. Bibasilar interstitial thickening and linear densities. This is not significantly changed. No new focal lung consolidations. No evidence for pulmonary edema. IMPRESSION: Severe emphysema with bibasilar interstitial thickening and linear densities. This favors vascular crowding from the severe emphysema and/or atelectasis/scarring. No acute process within the chest. Electronically signed by: Alejandro Spence M.D. 06/06/2017 3:46 PM Dictated Date/Time: 06/06/2017 3:44 PM
[2017-06-06 15:59] LABS: PARTIAL THROMBOPLASTIN RATIO 1.2; PROTHROMBIN TIME (PATIENT) 10.3 SECONDS (9.0-12.0)
[2017-06-06 17:10] LABS: BUN/CREATININE RATIO 15.2 (10-20); CALCIUM 9.1 mg/dl (8.5-10.1); CREATININE 1.3 mg/dl (0.60-1.40); POTASSIUM 3.7 mmol/L (3.5-5.1)
[~2017-06-13] VITALS: Ht 175.3 cm; Wt 78.5 kg
[2017-06-13] VITALS (13 sets, daily range): BP systolic 141–185; BP diastolic 65–94; PULSE 66–74; TEMP 36.5–37.1; O2SAT 95–100; Ht 175.3 cm; Wt 78.5 kg
[~2017-06-13 05:32] MED LIST changes: -DXY100 PO; -GFNSR600 PO; -OPTIRAY 320 IV PRN; -OXYC-57 PO
--- NOTE | 2017-06-13 06:02 | History and Physical ---
History & Physical Date of Service Jun 13, 2017. History & Physical CC: AAA HPI: I had the pleasure of seeing Mr. Logan in the office for an appointment regarding his abdominal aortic aneurysm. The patient was previously seen in the spring. At that time, his aneurysm was measuring approximately 4.3 cm. The patient was advised to follow up in a year; however, was somehow lost to followup and during some testing performed by his silk spooler, it was discovered that he had a fairly large abdominal aortic aneurysm. He presents today to go over some imaging which was performed to evaluate this. The patient 's CTA performed prior to today's appointment demonstrates an abdominal aortic aneurysm measuring 5.4 cm in size. In comparison with the previous ultrasound, there has been a significant growth since the imaging performed in the spring. The patient denies any complaints at this time, although is somewhat anxious about his CAT scan results. His allergies include no known medications. His home medications are reconciled in the chart and include the following; Advair, albuterol/ipratropium, allopurinol, amlodipine, aspirin, clonodine, Combivent, metoprolol, pravastatin, tamsulosin and terazosin. His past medical history is positive for acute ND, a history of cancer, history of CVA, history of gout. His past surgical history is positive for a cardiac catheterization with stent placement, history of hernia repair and a history of knee replacement. In addition, his past medical history is also positive for hypertension, hyperlipidemia, chronic obstructive pulmonary disease, and BPH. His family history is positive for cancer, heart disease and hypertension. His social history is positive for history of smoking in the past. He states that he used to smoke 1 pack per day and he quit in 1995. Patient denies alcohol or drug use. His review of systems is negative for fatigue, fevers, sweats, weight loss, or exercise intolerance, abnormal moles or rashes, vision changes or photophobia, ear pain, sinus problems or sore throat, cough, shortness of breath, hemoptysis or wheezing any worse than usual. Patient denies abdominal pain, nausea, vomiting, diarrhea, constipation, dysuria, hematuria, muscle weakness, headaches , dizziness, numbness, or seizures. PHYSICAL EXAMINATION: His vital signs are as follows: Blood pressure 126/80 in the right arm, 126/80 in the left. Heart rate 78, oxygenation 96% on room air. Constitutional: In general, the patient is a mildly chronically ill- appearing elderly male in no acute distress. He is ambulatory. Lungs are clear. Cor has a RRR. His abdomen does demonstrate a pulsatile mass measuring approximately 5 cm or over. His femoral pulses are +3. His distal pulses are + 1. Has brisk capillary refill. No sign of distal ischemia. His bilateral groins do demonstrate a confluent erythematous rash with scaling consistent with fungal infection. Imp: AAA Plan: Patient is admitted for a PEVAR of his AAA. I have discussed the risks options and benefits of the procedure with the patient. The patient understands the risks options and benefits and agrees to the procedure.
[2017-06-13 06:31] LABS: BUN/CREATININE RATIO 13.4 (10-20); CALCIUM 9.1 mg/dl (8.5-10.1); CREATININE 1.3 mg/dl (0.60-1.40); POTASSIUM 3.2 mmol/L (3.5-5.1)
[2017-06-13] MEDS: LACTATED RINGER'S 1000ML 1,000 ML IV SCH ×2 (06:34→13:15)
[2017-06-13] MEDS: SODIUM CHLORIDE 0.9% 1000ML 1,000 ML IV SCH ×2 (06:34→13:16)
[2017-06-13] MEDS ORDERED: FENTANYL CITRATE INJ 50 MCG/1 ML 2 ML VIAL ONE ×2 (06:46→09:11)
[2017-06-13] MEDS ORDERED: LIDOCAINE HCL 2% 2 ML VIAL (20MG/ML) ONE (06:56)
[2017-06-13] MEDS ORDERED: NITROGLYCERIN/D5W 100 MCG/ML BTL ONE (06:56)
[2017-06-13] MEDS ORDERED: EpINEphrine INJ 1MG/ML AMP 1 MG/ML AMP ONE (06:56)
[2017-06-13] MEDS ORDERED: PHENYLEPHRINE HCL INJ 10 MG/ML VIAL ONE (06:56)
[2017-06-13] MEDS ORDERED: PROPOFOL IV EMULSION 10 MG/ML 20 ML VIAL IV ONE (06:56)
[2017-06-13] MEDS ORDERED: LIDOCAINE HCL 2% JELLY 30 ML TUBE EXT ONE ×3 (07:36→08:15)
[2017-06-13] MEDS ORDERED: CEFAZOLIN SOD 1 GM VIAL ONE (07:41)
[2017-06-13] MEDS ORDERED: THROMBIN 5000 UNITS KIT ONE (07:41)
[2017-06-13] MEDS ORDERED: GELATIN SPONGE SZ 100 ONE (07:41)
[2017-06-13] MEDS ORDERED: HEPARIN SOD (PORCINE) 1000 UNIT/ML 10 ML VIAL ONE ×2 (07:41→09:44)
[2017-06-13] MEDS ORDERED: LIDOCAINE HCL 1% 20 ML VIAL ONE (07:50)
[2017-06-13] MEDS ORDERED: BUPIVACAINE/EPINEPHRINE 0.5% MPF 1:200,000 10 ML VIAL ONE (07:50)
[2017-06-13] MEDS: CEFAZOLIN 1000MG/55 ML D5W IV SCH ×2 (07:58→13:15)
[2017-06-13] MEDS ORDERED: KETAMINE HCL INJ 50 MG/ML 10 ML VIAL ONE (08:14)
[2017-06-13] MEDS ORDERED: MIDAZOLAM HCL 1 MG/ML 2ML VIAL ONE (08:14)
[2017-06-13] MEDS ORDERED: BUPIVACAINE/EPINEPHRINE 0.5% MPF 1:200,000 30 ML VIAL INJ ONE ×2 (08:27→08:37)
[2017-06-13] MEDS ORDERED: ONDANSETRON INJ 2 MG/ML 2 ML VIAL IV PRN (08:30)
[2017-06-13] MEDS ORDERED: EpHEDrine SULFATE INJ 50 MG/ML AMP IV PRN (08:30)
[2017-06-13] MEDS ORDERED: ATROPINE SULFATE 0.1 MG/ML 5ML SYR IV PRN (08:30)
[2017-06-13] MEDS ORDERED: IODIXANOL (VISIPAQUE) 270 MG/ML 150ML FLUSH ONE (09:46)
[2017-06-13] MEDS ORDERED: MoRPHine SULFATE 4 MG/ML 1 ML CARP\\VIAL IV PRN (10:00)
[2017-06-13] MEDS ORDERED: IPRATROPIUM BROMIDE/ALBUTEROL respimat INH INH PRN (10:00)
[2017-06-13] MEDS ORDERED: OXYCODONE/ACETAMINOPHEN 5-325 TAB PO PRN (10:00)
[2017-06-13] MEDS ORDERED: ALBUTEROL HFA 8 GM INHALER INH PRN (10:00)
[2017-06-13] MEDS ORDERED: ALBUT/IPRATROP 3MG/0.5MG NEB 3 ML VIAL INH PRN (10:00)
--- NOTE | 2017-06-13 10:05 | [facility] Post Operative Brief Note ---
Immediate Operative Summary Operative Date Jun 13, 2017. Pre-Operative Diagnosis abdominal aortic aneurysm Post-Operative Diagnosis same Procedure(s) Performed Percutaneous Endovascular Aneurysm Repair, Right Limb Extension, Bilateral Cannulation Of Aorta, Percutaneous Transluminal Angioplasty Right Common Iliac, Mechanical Closure Bilateral Femoral Arteries Surgeon Dr. Davis Funeral Car Chauffeur Surgeon(s) Blayne Sidhu Fellow Estimated Blood Loss 50 ml Findings no endoleak Specimens none Anesthesia MAC Complication(s) None Disposition Recovery Room / PACU
[2017-06-13] MEDS: FENTANYL CITRATE INJ 50 MCG/1 ML 2 ML VIAL IV PRN ×4 (10:25→10:40)
[2017-06-13] MEDS ORDERED: LABETALOL HCL IV 5 MG/ML 20ML IV ONE (10:47)
[2017-06-13] MEDS ORDERED: LABETALOL HCL IV 5 MG/ML 20ML IV PRN (11:00)
[2017-06-13 11:01] LABS: HEMATOCRIT 36.1 % (42-52)
--- NOTE | 2017-06-13 11:39 | Anesthesiology Progress Note ---
Anesthesia Post Op Note Date & Time Jun 13, 2017 at 11:38 Vital Signs Pain Intensity: 0 Vital Signs Past 12 Hours Date Time Temp Pulse Resp B/P (MAP) Pulse Ox O2 Delivery O2 Flow Rate FiO2 06/13/17 11:20 69 16 183/101 93 Nasal Cannula 3 06/13/17 11:10 68 16 172/95 93 Nasal Cannula 3 06/13/17 11:00 70 16 143/99 93 Nasal Cannula 3 06/13/17 10:50 36.1 68 16 161/90 93 Nasal Cannula 3 06/13/17 10:40 64 16 177/98 95 Nasal Cannula 3 06/13/17 10:30 63 16 153/110 94 Nasal Cannula 3 06/13/17 10:20 66 16 174/92 98 Nasal Cannula 3 06/13/17 10:10 36.2 69 16 170/97 95 Nasal Cannula 3 06/13/17 06:19 36.5 67 18 166/94 97 Nasal Cannula 3 Notes Mental Status: alert / awake / arousable, participated in evaluation Pt Amnestic to Procedure: Yes Nausea / Vomiting: adequately controlled Pain: adequately controlled Airway Patency, RR, SpO2: stable & adequate BP & HR: stable & adequate Hydration State: stable & adequate Anesthetic Complications: no major complications apparent Doing well. BP better after labetalol
[2017-06-13] MEDS ORDERED: NURSING VERBAL MED ORDER ONE ×2 (12:45→15:00)
[2017-06-13] MEDS ORDERED: ICU ELECTROLYTE REPLACEMENT PROTOCOL SCH (13:30)
[2017-06-13] MEDS ORDERED: D5W AND 1/2NSS 1,000 ML IV SCH (13:40)
[2017-06-13] MEDS ORDERED: MoRPHine SULFATE 2 MG/ML CARP IV PRN (13:45)
[2017-06-13] MEDS ORDERED: PANTOprazole INJ 40 MG in SYRINGE 0 ML IV SCH (14:00)
[2017-06-13] MEDS: CEFAZOLIN IV 1,000 MG in DEXTROSE 5% 50ML 50 ML IV SCH ×2 (14:04→21:36)
[2017-06-13] MEDS: POTASSIUM CHLORIDE 20 MEQ TABCR PO SCH ×3 (15:50→23:49)
--- NOTE | 2017-06-13 16:23 | Critical Care Consultation ---
Critical Care Consultation Date of Consultation: Jun 13, 2017. Attending Physician: Jae Davis M.D. Reason for Consultation: Postoperative management for percutaneous endovascular aneurysm repair performed by Dr. Davis History of Present Illness Felt Hat Mellowing Machine Operator: Dr. Jiang This is an 81-year-old male seen in the spring with a AAA measuring approximate 4.3 cm. During testing performed by cardiology the patient was found to have an increased AAA measuring 5.4 cm. The patient was seen outpatient by Dr. Davis and scheduled for elective percutaneous endovascular aneurysmal repair. The patient underwent that procedure today with a left groin approach. Procedure went well with an estimated blood loss of 50 mL. There are no complications perioperatively. Patient was transferred to intensive care room 111 for overnight monitoring. The patient is seen at bedside and is in no acute distress. The patient does have a history of hypertension and states that his systolic blood pressure is typically between 160 and 180 at home. He has a history of CAD and previous stenting at [facility] in 1985. He has had no cardiac complications since that time. The patient also has COPD and follows with Fidencio Carmichael PA-C from Dr. Hart's office. He currently has no shortness of breath and denies any chest pain. 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 He states that he quit smoking in 1993. The patient is . He reports his passed four years ago. He does live alone but has significant help from his daughter. He has no difficulty with independent living. The patient's pain is very well controlled. He has no acute complaints. PFTs 05/06/16 FVC 3.63/2.55/70%/3.23/89%/27% post change FEV1 2.82/0.55/20%/0.79/28%/44% post change FEV1/FVC % 77/22/24 TLC 6.14/5.76/94% RV 2.63/2.36/90% DLCO 17.7/12.9/73% DLCO/VA 3.36/1.92/57% Past Medical/Surgical History MEDICAL PROBLEMS: (1) Asthma (2) Benign enlargement of prostate (3) CAD (coronary artery disease) (4) Chronic diastolic heart failure (5) Chronic obstructive lung disease (6) Dependence on continuous supplemental oxygen (7) Gout (8) H/O seborrheic keratosis (9) History of CVA (cerebrovascular accident) without residual deficits (10) Hx MRSA infection (11) Hx of pulmonary aspiration (12) Hypertension (13) Hypothyroidism (14) Mixed hyperlipidemia (15) Pulmonary hypertension (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) Allergies Coded Allergies: Moxifloxacin (Verified Adverse Reaction, Mild, dizziness, 06/13/17) Home Medications Scheduled Allopurinol (Zyloprim), 300 MG PO QAM Aspirin (Aspirin Ec), 81 MG PO HS Clonidine Hcl (Catapres), 0.2 MG PO BID Fluticasone Prop/Salmeterol (Advair Diskus 500/50 60 Dose), 1 PUFFS INH BID Furosemide (Furosemide), 20 MG PO QAM Furosemide (Furosemide), 40 MG PO QAM Home O2 Therapy (Oxygen), 2 LITERS NA UD Levothyroxine Sodium (Synthroid), 50 MCG PO QAM Lisinopril (Prinivil), 5 MG PO PM Metoprolol Tartrate (Lopressor) (Lopressor), 50 MG PO BID Potassium Chloride (Micro-K Ext Rel), 20 MEQ PO DAILY Pravastatin Sodium (Pravastatin Sodium), 40 MG PO HS Tamsulosin Hcl (Flomax), 0.4 MG PO PM Scheduled PRN Albuterol Hfa (Ventolin Hfa), 2-4 PUFFS INH Q6H PRN for shortness of breath Ipratropium-Albuterol (Combivent Respimat), 1 PUFFS INH QID PRN for Wheezing Ipratropium-Albuterol (Duoneb), 1 TREATMENT INH Q6H PRN for sob/wheezing Oxycodone/Acetaminophen 5MG/325MG (Percocet 5MG/325MG), 1 TABLET PO Q4H PRN for Pain Current Inpatient Medications Current Inpatient Medications Medications (Trade) Dose Ordered Sig/Luis Route Start Time Stop Time Status Last Admin Dose Admin Cefazolin Sodium 55 ml @ 100 mls/hr PREOP IV 06/13/17 06:00 06/13/17 18:00 06/13/17 07:58 100 MLS/HR Sodium Chloride 1,000 ml @ 50 mls/hr Q20H IV 06/13/17 06:00 06/14/17 01:59 Lactated Ringer's 1,000 ml @ 15 mls/hr Q24H IV 06/13/17 06:00 06/14/17 05:59 06/13/17 06:34 15 MLS/HR Morphine Sulfate (MoRPHine SULFATE INJ) If PO analgesic is orde... Q2H PRN IV 06/13/17 10:00 06/27/17 09:59 Oxycodone/ Acetaminophen (Percocet 5-325mg Tab) `1-2 TABS FOR MODER... Q4H PRN PO 06/13/17 10:00 06/27/17 09:59 Pantoprazole Sodium 40 mg/ Syringe 10 ml @ 5 mls/min DAILY@11 IV 06/13/17 14:00 07/13/17 13:59 06/13/17 14:04 5 MLS/MIN Cefazolin Sodium 1000 mg/Dextrose 55 ml @ 100 mls/hr Q8H IV 06/13/17 13:30 06/13/17 22:02 06/13/17 14:04 100 MLS/HR Dextrose/Sodium Chloride 1,000 ml @ 125 mls/hr Q8H IV 06/13/17 13:40 07/13/17 13:39 06/13/17 14:06 125 MLS/HR Albuterol (Ventolin Hfa Inhaler) 3 puffs Q6H PRN INH 06/13/17 10:00 07/13/17 09:59 Allopurinol (Zyloprim Tab) 300 mg QAM PO 06/14/17 09:00 07/14/17 08:59 Aspirin (Ecotrin Tab) 81 mg HS PO 06/13/17 21:00 07/13/17 20:59 Salmeterol Xinafoate/ Fluticasone (Advair Diskus 500/50 Inh) 1 puff BID INH 06/13/17 21:00 07/13/17 20:59 Furosemide (Lasix Tab) 20 mg QAM PO 06/14/17 09:00 07/14/17 08:59 Furosemide (Lasix Tab) 40 mg QAM PO 06/14/17 09:00 07/14/17 08:59 Albuterol/ Ipratropium (Combivent Respimat Inh) 1 puffs QID PRN INH 06/13/17 10:00 07/13/17 09:59 Albuterol/ Ipratropium (Duoneb) 3 ml Q6H PRN INH 06/13/17 10:00 07/13/17 09:59 Levothyroxine Sodium (Synthroid Tab) 50 mcg DAILYBB PO 06/14/17 06:00 07/14/17 05:59 Lisinopril (Zestril Tab) 5 mg PM PO 06/13/17 21:00 07/13/17 20:59 Metoprolol Tartrate (Lopressor Tab) 50 mg BID PO 06/13/17 21:00 07/13/17 20:59 Potassium Chloride (Klor-Con M10) 20 meq DAILY PO 06/14/17 09:00 07/14/17 08:59 Pravastatin Sodium (Pravachol Tab) 40 mg HS PO 06/13/17 21:00 07/13/17 20:59 Tamsulosin HCl (Flomax Cap) 0.4 mg PM PO 06/13/17 21:00 07/13/17 20:59 Clonidine HCl (Catapres Tab) 0.2 mg BID PO 06/13/17 21:00 07/13/17 20:59 Miscellaneous Information ( [facility] Electrolyte Replacement Protocol) 1 ea UD N/A 06/13/17 13:30 06/20/17 13:29 Morphine Sulfate (MoRPHine SULFATE INJ) If PO analgesic is orde... Q2H PRN IV 06/13/17 13:45 06/27/17 13:44 Labetalol HCl (Normodyne IV) 5 mg Q4H PRN IV 06/13/17 13:36 07/13/17 13:35 Potassium Chloride (Klor-Con Tab) 20 meq Q4H PO 06/13/17 15:15 06/13/17 23:16 Review of Systems A total of 12 systems was reviewed and is negative other than as listed above in the HPI Physical Exam Date Time Temp Pulse Resp B/P (MAP) Pulse Ox O2 Delivery O2 Flow Rate FiO2 06/13/17 14:00 36.5 66 17 154/81 (105) 98 Nasal Cannula 2.0 170/70 (103) 06/13/17 11:35 167/78 NIBP 06/13/17 11:20 69 16 183/101 93 Nasal Cannula 3 06/13/17 11:10 68 16 172/95 93 Nasal Cannula 3 06/13/17 11:00 70 16 143/99 93 Nasal Cannula 3 06/13/17 10:50 36.1 68 16 161/90 93 Nasal Cannula 3 06/13/17 10:40 64 16 177/98 95 Nasal Cannula 3 06/13/17 10:30 63 16 153/110 94 Nasal Cannula 3 06/13/17 10:20 66 16 174/92 98 Nasal Cannula 3 06/13/17 10:10 36.2 69 16 170/97 95 Nasal Cannula 3 06/13/17 06:19 36.5 67 18 166/94 97 Nasal Cannula 3 GENERAL : No acute distress. EYES: No icterus, gaze conjugate. Pupils equal and reactive to light NOSE: No evidence of epistaxis. Nasal cannula in place MOUTH: No lesions or candidiasis. Upper dentures. Lower teeth with evidence of dental caries with no pain to percussion NECK: Supple. No stridor or evidence of carotid bruits LUNGS: CTA B/L, no wheezes, rales or rhonchi. Good respiratory effort HEART: Regular, rate controlled. No evidence of murmur gallop or rub ABDOMEN: Soft, NT, ND, BS Present. No pain with light palpation EXTREMITIES: No LE edema, pedal pulses intact. Dressing in place to left groin with no evidence of bleeding or hematoma NEURO: A&OX3. No focal neurological deficits. Laboratory Results Last 24 Hours Test 06/13/17 05:56 06/13/17 10:51 Sodium Level 141 mmol/L Potassium Level 3.2 mmol/L Chloride Level 102 mmol/L Carbon Dioxide Level 38 mmol/L Anion Gap 1.0 mmol/L Blood Urea Nitrogen 17 mg/dl Creatinine 1.30 mg/dl Est Creatinine Clear Calc Drug Dose 45.3 ml/min Estimated GFR () 59.7 Estimated GFR (Non- 51.5 BUN/Creatinine Ratio 13.4 Random Glucose 99 mg/dl Calcium Level 9.1 mg/dl Hemoglobin 12.0 g/dL Hematocrit 36.1 % Diagnostic Results CHEST PREADMISSION(PA/LAT) HISTORY: Preop. COMPARISON: Chest 01/29/2017. FINDINGS: The heart is normal in size. No pneumothorax. No pleural effusions. Severe emphysema. Bibasilar interstitial thickening and linear densities. This is not significantly changed. No new focal lung consolidations. No evidence for pulmonary edema. IMPRESSION: Severe emphysema with bibasilar interstitial thickening and linear densities. This favors vascular crowding from the severe emphysema and/or atelectasis/scarring. No acute process within the chest. Electronically signed by: Alejandro Spence M.D. 06/06/2017 3:46 PM Dictated Date/Time: 06/06/2017 3:44 PM Assessment & Plan ABDOMINAL AORTIC ANEURYSM WITHOUT RUPTURE * Elective percutaneous endovascular aneurysm repair by Dr. Davis * POD #0 * EBL 50 mL * No perioperative complications * Dressing dry in place to left groin * Further management per Dr. Davis CARDIOVASCULAR * Patient with history of CAD with PCI with stent placement at [facility] in the past * Continue aspirin therapy. Patient denies use of clopidogrel * Hypertension * Controlled with lisinopril, clonidine, metoprolol tartrate * Patient reports home systolic blood pressure between 150 and 180 * No chest pain PULMONARY * History of COPD * Continue nebulizer treatment as needed * Continue Combivent and Advair * History of emphysema * History of chronic supplemental oxygen dependence - uses 3 L/min via nasal cannula 19/05 * Follows with Morgan Carmichael PA-C * PFTs 05/06/2016 as above in history of present illness * Titrate SaO2 between 88 and 92% ENDOCRINE * Hypothyroidism - continue levothyroxine * No history of diabetes mellitus per patient report NEURO * History of remote CVA with no residual effects * CVA secondary to surgery per medical record * Patient alert and oriented X 3. No focal findings on exam RHEUMATOLOGICAL * History of gout - continue allopurinol HYPERLIPIDEMIA * Continue pravastatin * BPH - continue tamsulosin RENAL * BUN 17, creatinine 1.3 * GFR 51.5 * Maintenance fluids D5 normal saline 125 mL/hour * Strict I's and O's * Check labs in the morning ELECTROLYTES * Potassium 3.2 * Initiate electrolyte replacement protocol * Follow serial labs * Sodium 141 * Calcium 9.1 HEME * H/H 12.0/36.1 * No significant blood loss during procedure VASCULAR ACCESS * Peripheral access in place * No indication for central line GI PROPHYLAXIS * No indication for PPI * No reported history of GERD per patient DVT PROPHYLAXIS * Mechanical prophylaxis with SCDs * Ambulate as tolerated per vascular surgery * Chemical prophylaxis per vascular surgery CCT: 0 minutes. Level IV inpatient consult billing Thank you for including us in the care of this patient. Please refer to Dr. Jiang's addendum for further recommendations. I have personally evaluated and examined this patient. I agree with assessment and plan of Evonne Lee PA-C. patient pain free during my evaluation, groin soft bilaterally.
[2017-06-13] MEDS ORDERED: DEXTROSE 50% 50 ML SYR IV PRN (17:30)
[2017-06-13] MEDS ORDERED: GLUCOSE 40% GEL 15 GM TUBE PO PRN (17:30)
[2017-06-13] MEDS ORDERED: GLUCOSE 10 TABS/TUBE PO PRN (17:30)
[2017-06-13] MEDS ORDERED: GLUCAGON FOR INJ 1 MG VIAL SQ PRN (17:30)
[2017-06-13] MEDS: NORMOSOL R 1,000 ML IV SCH (18:22)
[2017-06-13] MEDS: CLONIDINE HCL 0.1 MG TAB PO SCH (19:34)
[2017-06-13] MEDS: METOPROLOL TARTRATE 50 MG TAB PO SCH (19:36)
[2017-06-13] MEDS: FLUTICASONE/SALMETEROL (ADVAIR) 500/50 INH 14 PUFF INH SCH (19:37)
[2017-06-13] MEDS: INSULIN ASPART 100 UNITS/ML 3 ML PEN SC SCH (19:51)
[2017-06-13] MEDS: LABETALOL HCL IV 5 MG/ML 20ML IV PRN ×2 (20:14→23:51)
[2017-06-13] MEDS ORDERED: LISINOPRIL 5 MG TAB PO SCH (21:00)
[2017-06-13] MEDS ORDERED: PRAVASTATIN SOD 40 MG TAB PO SCH (21:00)
[2017-06-13] MEDS ORDERED: ASPIRIN 81 MG ECTAB PO SCH (21:00)
[2017-06-13] MEDS ORDERED: TAMSULOSIN HCL 0.4 MG CAP PO SCH (21:00)
[2017-06-14] VITALS (20 sets, daily range): BP systolic 156–180; BP diastolic 58–140; PULSE 74–95; TEMP 37.1; O2SAT 91–96
[2017-06-14] MEDS: NORMOSOL R 1,000 ML IV SCH (03:04)
[2017-06-14] MEDS ORDERED: LEVOTHYROXINE 50 MCG TAB PO SCH (06:00)
[2017-06-14 06:16] LABS: HEMATOCRIT 35.3 % (42-52)
[2017-06-14] MEDS: LABETALOL HCL IV 5 MG/ML 20ML IV PRN (06:42)
[2017-06-14 06:50] LABS: ESTIMATED AVERAGE GLUCOSE 140 mg/dl; HA1C FLAG Normal (Normal)
[2017-06-14 07:02] LABS: BUN/CREATININE RATIO 10.3 (10-20); CALCIUM 8.3 mg/dl (8.5-10.1); CREATININE 1.2 mg/dl (0.60-1.40); POTASSIUM 3.7 mmol/L (3.5-5.1)
[2017-06-14] MEDS ORDERED: NURSING ICU ELECTROLYTE ORDER ONE (07:30)
[2017-06-14] MEDS ORDERED: POTASSIUM CHLORIDE 20 MEQ TABCR PO SCH (07:30)
[2017-06-14] MEDS: FLUTICASONE/SALMETEROL (ADVAIR) 500/50 INH 14 PUFF INH SCH (08:14)
[2017-06-14] MEDS: METOPROLOL TARTRATE 50 MG TAB PO SCH (08:14)
[2017-06-14] MEDS: CLONIDINE HCL 0.1 MG TAB PO SCH (08:14)
[2017-06-14] MEDS: INSULIN ASPART 100 UNITS/ML 3 ML PEN SC SCH (08:22)
[2017-06-14] MEDS ORDERED: ALLOPURINOL 300 MG TAB PO SCH (09:00)
[2017-06-14] MEDS ORDERED: FUROSEMIDE 20 MG TAB PO SCH (09:00)
[2017-06-14] MEDS ORDERED: FUROSEMIDE 40 MG TAB PO SCH (09:00)
[2017-06-14] MEDS ORDERED: POTASSIUM CHLORIDE 10 MEQ TABCR PO SCH (09:00)
--- NOTE | 2017-06-14 09:30 | Progress Note ---
Progress Note Date of Service: Jun 14, 2017. Subjective No complaints. Voided after slaughter out Problem List Medical Problems: (1) Acute bronchitis Status: Acute (2) COPD exacerbation Status: Acute (3) Dizziness Status: Acute (4) Hypothyroidism Status: Chronic (5) Hypoxia Status: Acute (6) Left lower lobe pneumonia Status: Acute Objective Vital Signs Vital Signs Past 12 Hours Date Time Temp Pulse Resp B/P (MAP) Pulse Ox O2 Delivery O2 Flow Rate FiO2 06/14/17 08:23 91 16 93 Nasal Cannula 3.0 06/14/17 05:30 79 19 177/68 (104) 95 06/14/17 05:00 79 20 163/62 (95) 93 06/14/17 04:30 82 20 170/63 (98) 94 06/14/17 04:00 96 Nasal Cannula 3.0 06/14/17 03:45 78 20 171/64 (99) 94 06/14/17 03:15 77 18 156/58 (90) 94 06/14/17 03:00 76 21 174/68 (103) 95 06/14/17 02:00 80 22 157/62 (93) 93 06/14/17 01:00 79 19 180/64 (102) 91 06/14/17 00:30 81 18 174/70 (104) 95 06/14/17 00:00 74 19 173/66 (101) 96 06/13/17 23:59 96 Nasal Cannula 3.0 06/13/17 23:00 72 19 185/73 (110) 96 06/13/17 22:00 37.1 68 18 176/70 (105) 95 06/13/17 21:30 68 20 165/65 (98) 95 Exam VSS Afebrile Groin incisions clean and dry. No hematomas Good distal pulses. Abd benign Laboratory and Microbiology Results Past 24 Hours Test 06/13/17 10:51 06/13/17 18:24 06/13/17 19:47 06/14/17 06:06 Range/Units Hemoglobin 12.0 11.3 14.0-18.0 g/dL Hematocrit 36.1 35.3 42-52 % Bedside Glucose 140 133 70-99 mg/dl Sodium Level 140 136-145 mmol/L Potassium Level 3.7 3.5-5.1 mmol/L Chloride Level 105 98-107 mmol/L Carbon Dioxide Level 31 21-32 mmol/L Anion Gap 4.0 3-11 mmol/L Blood Urea Nitrogen 12 7-18 mg/dl Creatinine 1.20 0.60-1.40 mg/dl Est Creatinine Clear Calc Drug Dose 49.1 ml/min Estimated GFR () 65.8 Estimated GFR (Non- 56.8 BUN/Creatinine Ratio 10.3 10-20 Random Glucose 115 70-99 mg/dl Estimated Average Glucose 140 mg/dl Hemoglobin A1c 6.5 4.5-5.6 % Calcium Level 8.3 8.5-10.1 mg/dl Test 06/14/17 06:07 Range/Units Bedside Glucose 103 70-99 mg/dl Microbiology Results 06/13/17 MRSA DNA Surveillance Screen - Final, Complete Specimen Positive for MRSA by DNA Probe Imp: Post PEVAR Plan: Doing well D/C today
[2017-06-14] MEDS ORDERED: OXYC-57 PO (09:32)
--- NOTE | 2017-06-14 09:35 | Discharge Instructions ---
Discharge Instructions Date of Service Jun 14, 2017. Admission Reason for Admission: Abdominal Aortic Aneurysm Discharge Discharge Diagnosis / Problem: Percutaneous endovascular aortic repair of an abdominal aortic aneurysm Discharge Goals Goal(s): Therapeutic intervention Activity Recommendations Activity Limitations: per Instructions/Follow-up section Lifting Limitations: no more than 25 pounds Shower/Bathe: tomorrow Driving or Machine Use: resume 3 days after discharge . Instructions / Follow-Up Instructions / Follow-Up Call [phone] to schedule a follow up appointment if one not already scheduled. May remove dressing tomorrow. Replace if needed SPECIAL CARE INSTRUCTIONS: Medications: * Continue to take your medications as directed. Incision/Puncture Site Care: * You will have an incision or puncture in each of your groins. Liquid glue will be used to seal your incisions/puncture site. This will lift off as the incisions/ puncture sites heal. * If Liquid glue is not used, there will be small dressings covering your incisions. After you get home, you may remove the dressings and shower - allowing the warm soapy water to run over it. * Be sure to dry the sites well and keep them dry. * DO NOT SOAK IN A TUB/POOL/etc. UNTIL ALL SURGICAL SITES ARE HEALED. DO NOT REMOVE THE GLUE UNTIL THE INCISIONS HEAL. 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 * You may walk and go up and down steps. * Avoid excessive bending or movement at the level of the incisions or punctures. Risks and Possible Complications: * Infection/Drainage/Bleeding - Drainage or bleeding from the incisions/ puncture site should be minimal. If you have excessive bleeding or drainage, call our office ([phone]) right away. * Pain/Numbness - You may experience some mild pain or soreness at your incision sites. You may also have some numbness around the incisions or into the insides of your thighs. Bruising is normal and should resolve within 2 weeks. * Changes in Appetite or Bowel Habits - Mostly related to anesthesia and pain medication, some patients have reported decreased appetite and/or problems with constipation. These symptoms usually improve over a few weeks. Remembering to take an [id number] stool softener, as directed, will help you to avoid constipation. Call our office and seek emergent treatment if you develop: * Fever or chills * Have a temperature greater than 101 degrees F * Any redness or purulent drainage from your incisions or punctures * Severe abdominal, chest or back pain SKIN IRRITATION: * You may experience some redness and/or swelling in the area where radiation was administered. If any skin irritation occurs, please contact your family physician. You will be receiving a call from the Vascular Surgery Nurse after you are discharged. FOLLOW UP VISIT: It is important for you to keep your follow up appointments with your medical provider. Keep any scheduled doctor appointments. Current Hospital Diet Patient's current hospital diet: AHA Diet (Heart Healthy) Discharge Diet Recommended Diet: AHA Diet (Heart Healthy) Procedures Procedures Performed: Percutaneous Endovascular Aneurysm Repair, Right Limb Extension, Bilateral Cannulation Of Aorta, (Excluder gore graft 31 mm x 14.5 mm x 13 cm for the main body, 16 mm x 14.5 mm x 7 cm for the right extension limb. 14.5 x 16 x 10 cm for the contralateral limb.) Percutaneous Transluminal Angioplasty Right Common Iliac (Vassar 10x 40mm balloon) Mechanical Closure Bilateral Femoral Arteries Pending Studies Studies pending at discharge: no Laboratory Results Hemoglobin A1c Test 06/14/17 06:06 Range/Units Estimated Average Glucose 140 mg/dl Hemoglobin A1c 6.5 H 4.5-5.6 % Medical Emergencies . Who to Call and When: Medical Emergencies: If at any time you feel your situation is an emergency, please call 911 immediately. . Non-Emergent Contact Non-Emergency issues call your: Surgeon . "Provider Documentation" section prepared by Jae Davis. . VTE Core Measure Inpt VTE Proph given/why not?: SCD's [place] Drug Monitoring Program Search Results: no issues identified
--- NOTE | 2017-06-16 10:16 | DISCHARGE SUMMARY ---
ADMISSION DIAGNOSIS: Abdominal aortic aneurysm, 5.4 cm. DISCHARGE DIAGNOSES: 1. Status post percutaneous endovascular aneurysm repair. 2. Abdominal aortic aneurysm, 5.4 cm. DISCHARGE CONDITION: Stable. CONSULTATIONS IN THE HOSPITAL: Included critical care. PROCEDURES IN HOSPITAL: Included percutaneous endovascular aneurysm repair performed on 06/13/2017 with an EBL of 50 mL and no complications. HISTORY OF PRESENT ILLNESS: Mr. Logan is an 81-year-old male who presented to Dr. Davis's office as an outpatient after having lost to follow up and the patient presented to the office with a significantly increased diameter of his abdominal aortic aneurysm. In spring, it measured 4.3 cm and on summer, it was noted to be 5.4 cm. Due to the increased in size as well as the rate of growth, it was recommended the patient undergo endovascular repair. The procedure, risks, benefits, alternatives were discussed with the patient. He expressed understanding and agreement to proceed. HOSPITAL COURSE: The patient was admitted on 06/13/2017 after undergoing his percutaneous endovascular aneurysm repair. This was performed without significant complications. His labs and vital signs remained essentially stable. He did well postoperatively, ambulating and taking p.o. well within few hours postoperatively. He had no complications. No signs of bleeding or hematoma and was felt to be stable enough for discharge on postop day 1. PHYSICAL EXAMINATION: VITAL SIGNS: On day of discharge, his vital signs were as follows: Temperature of 37.1, pulse 90, respiratory rate of 20, blood pressure 157/93 and pulse oximetry of 92% on room air. CONSTITUTIONAL: The patient is a mildly chronically ill appearing elderly male in no acute distress. He ambulated without assistance and is active, alert x4 with normal recent and remote memory. HEAD: Normocephalic and atraumatic. EYES: EOMI. ENT: demonstrated no hearing loss, rhinorrhea or pharyngeal erythema. NECK: Supple, nontender with a midline trachea without masses or crepitus. LUNGS: Exam demonstrated no dyspnea. They were clear to auscultation bilaterally, somewhat decreased throughout. CARDIOVASCULAR: Demonstrated nondisplaced apical impulse with a regular rate and rhythm with a 2/6 systolic ejection murmur. His peripheral pulses are full and equal in all extremities unless otherwise noted, specifically they were normal in his carotid, brachial, radial and femoral pulses. They were somewhat difficult to palpate due to postoperative discomfort. Lower extremity distal pulses are +1. He has brisk capillary refill and no sign of distal ischemia. NEUROLOGIC: The patient has grossly intact cranial nerves and grossly intact sensation. ABDOMEN: Soft, nontender with normoactive bowel sounds in all 4 quadrants without guarding or rebound. There was no flank or CVA tenderness and no sign of distention. EXTREMITIES: His bilateral upper extremities demonstrate no cyanosis, edema, clubbing, varicosities or ulcers. His bilateral groin sites were well approximated and healing appropriately. There is mild local tenderness, edema and slight ecchymosis. There is no firm hard hematoma or pulsatile mass appreciable. DIET UPON DISCHARGE: A low-cholesterol AHA diet. MEDICATIONS: Reconciled in the chart and are as per his discharge instructions. FOLLOWUP: The patient was advised to follow up with Dr. Davis or Selena Andino within 2 weeks postoperatively. He is advised to call to the office if any other questions.
== END 2017-06-14 11:00 | disposition home or self-care (01) | DRG 269 ==
LOC: C.ACU 05:32 → ENRESERV 10:27 → C.MSICU 12:11
PROVIDERS: ADMIT Surgery Vascular Surgery; ATTEND Surgery Vascular Surgery
PROC: 04V03E6 (ICD-10-PCS; principal; 2017-06-13 08:00)
PROC: 047C3ZZ Dilation of Right Common Iliac Artery, Percutaneous Approach (ICD-10-PCS; principal; 2017-06-13 08:00)
DX: I71.4 Abdominal aortic aneurysm, without rupture (principal); I25.2 Old myocardial infarction; M10.9 Gout, unspecified; I10 Essential (primary) hypertension; E78.5 Hyperlipidemia, unspecified; J44.9 Chronic obstructive pulmonary disease, unspecified; N40.0 Benign prostatic hyperplasia without lower urinary tract symptoms; E03.9 Hypothyroidism, unspecified; Z79.82 Long term (current) use of aspirin; Z79.899 Other long term (current) drug therapy; Z86.73 Personal history of transient ischemic attack (TIA), and cerebral infarction without residual deficits; Z87.891 Personal history of nicotine dependence; Z95.5 Presence of coronary angioplasty implant and graft

== ENCOUNTER → 2017-08-11 | Outpatient (CLI) | payer OTHER ==
[~2017-08-11] MED LIST changes: +OPTIRAY 320 IV PRN; +OXYC-57 PO
--- NOTE | 2017-08-11 12:20 | DIAGNOSTIC IMAGING REPORT ---
CT ANGIOGRAM OF THE ABDOMEN AND PELVIS COMBO CLINICAL HISTORY: Abdominal aorta aneurysm status post endovascular repair. COMPARISON STUDY: CT angiogram of the abdomen and pelvis dated 05/27/2017. Abdominal CT dated 06/13/2014. TECHNIQUE: Before and following the IV administration of 119 cc of Optiray 320, CT angiogram of the abdomen and pelvis was performed from the lung bases the proximal femora. The examination is performed using the stent graft protocol. Images are reviewed in the axial, sagittal, and coronal planes. 3-D MIPS images are created and assessed. IV contrast was administered without complication. A dose lowering technique was utilized adhering to the principles of ALARA. CT DOSE: 1844.76 mGy.cm FINDINGS: Lower chest: The heart is enlarged and there is a small pericardial effusion. The coronary arteries an aortic valve leaflets are densely calcified. Advanced emphysema is noted at the lung bases. Foci of tree-in-bud nodularity are seen in the right middle lobe. No pleural effusion is identified. Bibasilar scarring versus atelectasis is identified. There is a small hiatal hernia. Liver: The contrast-enhanced liver is normal in size, contour, and attenuation. There is no intrahepatic or ductal dilatation. The hepatic veins and portal veins are patent. Gallbladder: There are layering gallstones identified. There is no CT evidence of acute cholecystitis. Spleen: Normal in size and attenuation. Pancreas: Moderately atrophic and normal as visualized. Adrenal glands: A 1.5 cm left adrenal nodule meets CT criteria for a fat-containing adenoma. There is also mild nodularity of the right adrenal gland. Kidneys: The contrast enhanced kidneys are atrophic and without hydronephrosis. There is a 4 mm nonobstructing calculus in the left lower pole seen on the unenhanced series. No right renal calculi are identified. The kidneys enhance symmetrically. Scattered subcentimeter cortical hypodensities likely represent cysts but are too small for definitive characterization. There is a small focus of hypoperfusion seen within the anterior aspect of the right lower pole on axial image #218. This is new from previous and may represent a tiny cortical infarct. Abdominal aorta and iliac arteries: There is advanced atherosclerotic calcification of the abdominal aorta and iliac arteries. There has been aortobiiliac stent graft repair of a large infrarenal abdominal aortic aneurysm. The residual aneurysm sac measures up to 5.4 cm in AP diameter and 5.3 cm in transverse diameter. The stent graft is widely patent. There is a small endoleak identified on axial image #234 of the delayed series. This is located posterior to the iliac stent components and is likely a type II endoleak related to flow from a lumbar vessel. There is also mild aneurysmal dilatation of the abdominal aorta at the level of the superior mesenteric artery where the abdominal aorta measures up to 3.6 cm. No dissection is seen. Advanced atherosclerotic plaque is seen throughout the iliac vessels. The common iliac arteries and the external iliac arteries are normal in caliber. 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 There is an aneurysm of the left common femoral artery which measures up to 1.7 cm seen on image #411 Major branches of the abdominal aorta: The celiac trunk is widely patent. 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 The superior mesenteric artery is widely patent. 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 There is a replaced right hepatic artery which arises from the superior mesenteric artery. The left hepatic artery arises from the left gastric artery. The splenic artery is patent. 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 There is a single left renal artery and 2 right renal arteries. The left renal artery is widely patent. The main right renal artery arises just above the stent graft and is patent noting 50% stenosis at its origin. A smaller accessory right renal artery arises along the superior margin of the stent graft seen on image #187. There is flow shown within the vessel, with high-grade stenosis versus thrombosis at its origin. Bowel: The small bowel and colon are normal in course and caliber. Moderate colonic fecal retention is observed. There is advanced colonic diverticulosis without CT evidence of acute diverticulitis. The appendix is well-visualized and normal. Peritoneum: There is no intraperitoneal free air or abdominal ascites. A fat-containing umbilical hernia is noted. Lymphadenopathy: None. Pelvic viscera: The prostate gland is markedly enlarged and heterogeneous, measuring up to 6.5 cm in transverse diameter. There is median lobe hypertrophy and coarse calcifications are noted within the gland. The bladder wall appears thickened and trabeculated consistent with chronic outlet obstruction. Calcification of the penile tunica suggesting Peyronie's disease. There is a small fat-containing right inguinal hernia. Postoperative change/fluid is noted in the right groin. Skeletal structures: The skeletal structures are osteopenic. No lytic or blastic bony lesions are seen. There are healed right-sided rib fractures. Moderate to advanced lumbosacral spondylosis and scoliosis is observed. IMPRESSION: 1. Cardiomegaly and advanced emphysema. 2. There has been aortobiiliac stent graft repair of a large infrarenal abdominal aneurysm as detailed above. The residual aneurysm sac measures 5.4 x 5.3 cm. 3. There is a small endoleak identified. This is likely a type II endoleak related to lumbar vessels. 4. There is mild aneurysmal dilatation of the proximal abdominal aorta. This measures up to 3.6 cm at the level of the superior mesenteric artery. 5. There is focal loss of corticomedullary differentiation identified within the anterior lower pole of the right kidney. This likely represents a small infarct related to high-grade stenosis/occlusion at the origin of a small accessory right renal artery which arises from the proximal aspect of the stent graft. 6. 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 Both vessels are widely patent. 7. 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 8. There is approximately 50% stenosis at the origin of the main right renal artery. This arises above the stent graft. 9. Cholelithiasis. 10. Advanced colonic diverticulosis without CT evidence of acute diverticulitis. 11 Prostatomegaly with evidence of chronic bladder outlet obstruction. 12. 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 Nonobstructing left renal calculus. 14. Additional findings as above. Electronically signed by: Neville Silva M.D. 08/11/2017 12:18 PM Dictated Date/Time: 08/11/2017 11:55 AM
== END ==
LOC: C.CTS 10:47
PROVIDERS: ATTEND Physician Assistant
DX: I71.4 Abdominal aortic aneurysm, without rupture (principal); Z95.828 Presence of other vascular implants and grafts

== ENCOUNTER 2017-10-01 15:37 | Inpatient (IN) | payer OTHER ==
[~2017-10-01] VITALS: Ht 175.3 cm; Wt 81.0 kg
[~2017-10-01 15:37] MED LIST changes: -OPTIRAY 320 IV PRN
[2017-10-01 17:22] VITALS: BP 144/76; PULSE 88; TEMP 36.4; O2SAT 92; Ht 175.3 cm; Wt 81.0 kg
[2017-10-01] MEDS ORDERED: ONDANSETRON INJ 2 MG/ML 2 ML VIAL IV PRN (17:30)
[2017-10-01] MEDS ORDERED: ACETAMINOPHEN 325 MG TAB PO PRN (17:30)
--- NOTE | 2017-10-01 18:09 | DIAGNOSTIC IMAGING REPORT ---
SINGLE VIEW CHEST CLINICAL HISTORY: Dyspnea. FINDINGS: An AP, portable, upright chest radiograph is compared to study dated 06/06/2017 and correlated with chest CT dated 06/18/2016. The examination is degraded by portable technique and patient rotation. The heart is enlarged and there is atherosclerotic calcification of the thoracic aorta. The pulmonary vasculature is noncongested. Advanced emphysema and chronic interstitial thickening are similar to previous. There is patchy airspace consolidation throughout the right lower lung. Mild patchy consolidation is seen at the left lung base. Trace pleural effusions are noted. No pneumothorax is seen. The skeletal structures are osteopenic. There are healed right-sided rib fractures. Degenerative change and scoliosis are noted in the thoracic spine. IMPRESSION: 1. Cardiomegaly and emphysema. 2. There is dense airspace consolidation at the right lung base. Airspace consolidation is also seen at the left lung base. The appearance is typical for pneumonia. Clinical correlation will be required and radiographic follow-up to resolution is recommended. 3. Trace pleural effusions are identified. Electronically signed by: Neville Silva M.D. 10/01/2017 6:08 PM Dictated Date/Time: 10/01/2017 6:06 PM
[2017-10-01 18:14] LABS: HEMATOCRIT 39.3 % (42-52); MEAN CORPUSCULAR HEMOGLOBIN 30.9 pg (25-34); MEAN PLATELET VOLUME 9.3 fL (7.4-10.4); PLATELET COUNT 145 K/uL (130-400); RED BLOOD COUNT 4.18 M/uL (4.7-6.1); WHITE BLOOD COUNT 9.44 K/uL (4.8-10.8)
[2017-10-01] MEDS ORDERED: PROMETHAZINE HCL INJ 12.5 MG in SODIUM CHLORIDE 0.9% 50ML 50 ML IV PRN (18:30)
[2017-10-01 18:36] LABS: MEAN CORPUSCULAR HGB CONC 32.8 g/dl (32-36)
[2017-10-01 18:41] LABS: BUN/CREATININE RATIO 17.5 (10-20); CALCIUM 8.5 mg/dl (8.5-10.1); CREATININE 1.71 mg/dl (0.60-1.40); MAGNESIUM 2.3 mg/dl (1.8-2.4); PARTIAL THROMBOPLASTIN RATIO 1.1; PHOSPHORUS 2.6 mg/dl (2.5-4.9); POTASSIUM 3.7 mmol/L (3.5-5.1); PROTHROMBIN TIME (PATIENT) 10.2 SECONDS (9.0-12.0)
[2017-10-01] MEDS ORDERED: ALBUT/IPRATROP 3MG/0.5MG NEB 3 ML VIAL INH PRN (18:45)
[2017-10-01 18:48] LABS: BASO % 0.1 %; BASO ABS # 0.01 K/uL (0-0.2); COMPLETE YES; EOS % 0.1 %; IG% 0.3 %; LYMPH % 3.4 %; LYMPH ABS # 0.32 K/uL (1.2-3.4); MONO % 4.1 %
[2017-10-01] MEDS: SODIUM CHLORIDE 0.9% 1000ML 1,000 ML IV SCH (19:30)
[2017-10-01] MEDS: ALBUT/IPRATROP 3MG/0.5MG NEB 3 ML VIAL INH SCH (19:39)
[2017-10-01 19:43] VITALS: PULSE 72; O2SAT 94
--- NOTE | 2017-10-01 19:55 | History and Physical ---
History & Physical Date & Time of Service: Oct 01, 2017 ~ 19:30 Chief Complaint: Shortness of Breath Primary Care Physician: Ochoa Kelly DO History of Present Illness 82 year old male who was transferred from [facility] ED for COPD exacerbation and RLL pneumonia. Patient reports he started to feel sick about 3 days ago. He has had progressive shortness of breath with exertion. He reports a cough productive for brown sputum. Today he had chills and rigors. He did not take his temperature at home. He denies chest pain and palpitations. He reports mild lightheadedness and dizziness and denies syncopal event. He has chronic lower extremity edema, L > R which has been at baseline. No abdominal pain, nausea, vomiting, or diarrhea. He denies urinary symptoms. EMS was called and patient received nebulizer and solumedrol en route. Upon arrival to [facility]'s ED, patient was febrile at 104.1 rectally. CXR showed RLL pneumonia. He was also hypoxic on his chronic 3L at 88%. He had one documented hypotensive BP however others were stable. WBC 5.7, lactic acid 2.1 (normal per [facility] lab), creat 1.7 (baselines ~ 1.2). Sputum gram stain shows many WBCs, many gram + cocci, and few gram + rods. He was given Rocephin, Azithromycin, and NSS 1500ml. At the time of my exam, patient reports he is feeling much improved. He is currently saturating well on his chronic 3L. Past Medical/Surgical History Medical Problems: (1) AAA (abdominal aortic aneurysm) without rupture Status: Chronic (2) Asthma Status: Chronic (3) Benign enlargement of prostate Status: Chronic (4) CAD (coronary artery disease) Permanent Comment: s/p stent Status: Chronic (5) Chronic diastolic heart failure Permanent Comment: Echo 09/2014- EF 55-60%, grade 1 diastolic dysfunction Status: Chronic (6) Chronic obstructive lung disease Status: Chronic (7) Dependence on continuous supplemental oxygen Status: Chronic (8) Gout Status: Chronic (9) H/O seborrheic keratosis Status: Chronic (10) History of CVA (cerebrovascular accident) without residual deficits Status: Resolved (11) Hx MRSA infection Permanent Comment: per records Status: Chronic (12) Hx of pulmonary aspiration Status: Chronic (13) Hypertension Status: Chronic (14) Hypothyroidism Status: Chronic (15) Mixed hyperlipidemia Status: Chronic (16) Pulmonary emphysema Status: Chronic (17) Pulmonary hypertension Permanent Comment: Moderate on echo 09/2014 Status: Chronic (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 Surgical Problems: (1) Hx of squamous cell carcinoma excision Permanent Comment: upper lip Status: Chronic (2) S/P AAA repair Status: Chronic (3) S/P coronary artery stent placement Permanent Comment: 2005 and 2007 Status: Chronic (4) S/P hernia repair Status: Chronic (5) S/P knee replacement Status: Chronic Family History non contributory due to patient's advanced age Social History Smoking Status: Former Smoker Alcohol Use: none Housing status: lives alone Multi-Drug Resistant Organisms History of MDRO: Yes Type of MDRO: MRSA Allergies Coded Allergies: Moxifloxacin (Verified Adverse Reaction, Mild, dizziness, 06/13/17) Home Medications Scheduled Allopurinol (Zyloprim), 300 MG PO QAM Aspirin (Aspirin Ec), 81 MG PO HS Clonidine Hcl (Catapres), 0.2 MG PO BID Fluticasone Prop/Salmeterol (Advair Diskus 500/50 60 Dose), 1 PUFFS INH BID Furosemide (Furosemide), 20 MG PO QAM Furosemide (Furosemide), 40 MG PO QAM Home O2 Therapy (Oxygen), 2 LITERS NA UD Levothyroxine Sodium (Synthroid), 50 MCG PO QAM Lisinopril (Prinivil), 5 MG PO PM Metoprolol Tartrate (Lopressor) (Lopressor), 50 MG PO BID Pravastatin Sodium (Pravastatin Sodium), 40 MG PO HS Tamsulosin Hcl (Flomax), 0.4 MG PO PM Scheduled PRN Albuterol Hfa (Ventolin Hfa), 2-4 PUFFS INH Q6H PRN for shortness of breath Ipratropium-Albuterol (Combivent Respimat), 1 PUFFS INH QID PRN for Wheezing Ipratropium-Albuterol (Duoneb), 1 TREATMENT INH Q6H PRN for sob/wheezing Review of Systems ROS per HPI, all other systems reviewed and negative Physical Exam Vital Signs Date Time Temp Pulse Resp B/P (MAP) Pulse Ox O2 Delivery O2 Flow Rate FiO2 10/01/17 17:22 36.4 88 18 144/76 92 Nasal Cannula 3.0 General Appearance: WD/WN, no apparent distress Head: normocephalic, atraumatic Eyes: normal inspection, EOMI, sclerae normal ENT: hearing grossly normal, + pertinent finding (mucous membranes moist) Neck: supple, no JVD, trachea midline Respiratory/Chest: no respiratory distress, + decreased breath sounds (poor air entry noted throughout all lung martinez) Cardiovascular: regular rate, rhythm, normal peripheral pulses, + pertinent finding (+1 edema BLLE, L > R) Abdomen/GI: normal bowel sounds, non tender, soft, no organomegaly Extremities/Musculoskelatal: normal inspection, no calf tenderness, normal capillary refill Neurologic/Psych: no motor/sensory deficits, alert, normal mood/affect, oriented x 3 Skin: normal color, warm/dry Diagnostics Laboratory Results Results Past 24 Hours Test 10/01/17 18:00 10/01/17 18:02 10/01/17 18:15 Range/Units White Blood Count 9.44 4.8-10.8 K/uL Red Blood Count 4.18 4.7-6.1 M/uL Hemoglobin 12.9 14.0-18.0 g/dL Hematocrit 39.3 42-52 % Mean Corpuscular Volume 94.0 80-100 fL Mean Corpuscular Hemoglobin 30.9 25-34 pg Mean Corpuscular Hemoglobin Concent 32.8 32-36 g/dl Platelet Count 145 130-400 K/uL Mean Platelet Volume 9.3 7.4-10.4 fL Neutrophils (%) (Auto) 92.0 % Lymphocytes (%) (Auto) 3.4 % Monocytes (%) (Auto) 4.1 % Eosinophils (%) (Auto) 0.1 % Basophils (%) (Auto) 0.1 % Neutrophils # (Auto) 8.68 1.4-6.5 K/uL Lymphocytes # (Auto) 0.32 1.2-3.4 K/uL Monocytes # (Auto) 0.39 0.11-0.59 K/uL Eosinophils # (Auto) 0.01 0-0.5 K/uL Basophils # (Auto) 0.01 0-0.2 K/uL RDW Standard Deviation 47.8 36.4-46.3 fL RDW Coefficient of Variation 14.0 11.5-14.5 % Immature Granulocyte % (Auto) 0.3 % Immature Granulocyte # (Auto) 0.03 0.00-0.02 K/uL Red Blood Cell Morphology Unremarkable Prothrombin Time 10.2 9.0-12.0 SECONDS Prothromb Time International Ratio 1.0 0.9-1.1 Activated Partial Thromboplast Time 28.2 21.0-31.0 SECONDS Partial Thromboplastin Ratio 1.1 Sodium Level 136 136-145 mmol/L Potassium Level 3.7 3.5-5.1 mmol/L Chloride Level 99 98-107 mmol/L Carbon Dioxide Level 30 21-32 mmol/L Anion Gap 6.0 3-11 mmol/L Blood Urea Nitrogen 30 7-18 mg/dl Creatinine 1.71 0.60-1.40 mg/dl Est Creatinine Clear Calc Drug Dose 33.9 ml/min Estimated GFR () 42.6 Estimated GFR (Non- 36.7 BUN/Creatinine Ratio 17.5 10-20 Random Glucose 193 70-99 mg/dl Lactic Acid Level 1.5 0.4-2.0 mmol/L Calcium Level 8.5 8.5-10.1 mg/dl Phosphorus Level 2.6 2.5-4.9 mg/dl Magnesium Level 2.3 1.8-2.4 mg/dl Total Bilirubin 0.5 0.2-1 mg/dl Aspartate Amino Transf (AST/SGOT) 14 15-37 U/L Alanine Aminotransferase (ALT/SGPT) 12 12-78 U/L Alkaline Phosphatase 29 45-117 U/L Total Protein 6.0 6.4-8.2 gm/dl Albumin 3.0 3.4-5.0 gm/dl Globulin 3.0 2.5-4.0 gm/dl Albumin/Globulin Ratio 1.0 0.9-2 Diagnostic Radiology CXR IMPRESSION: 1. Cardiomegaly and emphysema. 2. There is dense airspace consolidation at the right lung base. Airspace consolidation is also seen at the left lung base. The appearance is typical for pneumonia. Clinical correlation will be required and radiographic follow-up to resolution is recommended. 3. Trace pleural effusions are identified. Impression Assessment and Plan COMMUNITY ACQUIRED PNEUMONIA COPD EXACERBATION - admit to tele - patient presented to [facility] with worsening shortness of breath, productive cough, and chills; in the ED, was found to have RLL pneumonia - was febrile on arrival at 104.1; BP and HR stable, normal lactic acid - was hypoxic on chronic 3L at 88% that improved with treatments provided in the ED; currently saturating well on 3L - was given Rocephin and Azithromycin; however given prolonged QTC, will continue with Rocephin and doxycycline starting tomorrow - around the clock nebs, Prednisone 40mg PO, continue home inhaled corticosteroid - sputum gram stain shows many WBCs, many gram + cocci, and few gram + rods; follow final culture from [facility] - blood cultures obtained at [facility]; follow results - pulmonary consult, case discussed with Fidencio Carmichael PA-C CARMELLA - prerenal due to acute illness - IVF, hold ACEi and furosemide - follow renal functions PROLONGED QTC - daily EKG - avoid QTC prolonging agents CAD - stable, no reports of chest pain - continue ASA, statin, and beta hafsa HTN - BP controlled, continue clonidine and metoprolol - holding lisinopril due to CARMELLA CHRONIC DIASTOLIC CHF - on the dry side with CARMELLA - holding diuretics for now, monitor volume status closely BPH - continue tamsulosin HYPOTHYROIDISM - continue levothyroxine DVT PROPHYLAXIS - SQ heparin CODE STATUS - Patient is a full code without mechanical ventilation as per my discussion with the patient. DISPO - In my clinical judgment this beneficiary meets acute admission criteria, established by [facility], that includes being hospitalized through two midnights. - PT/OT, case management consults ATTENDING ADDENDUM care coordinated with GISSEL Gomez please refer to her notes for full details, I agree with her notes patient seen and examined, records reviewed by myself as well on exam, patient seen resting in bed, comfortable states breathing is improving still has cough, occasional pink tinged sputum denies chest pain no other symptoms VS noted and reviewed oriented x 3, not in distress, speaks in sentences with no effort nor accessory muscle use normal rate, regular rhythm, no murmurs (+) rales bilaterally, no wheezing non distended, soft, nontender no bipedal edema, erythema, warmth no neuro deficits WBC 9 Hg 12.9 Crea 1.71 ASSESSMENT/PLAN> RIGHT SIDED PNEUMONIA COPD EXACERBATION - ff up cultures performed in [facility] - Ceftri + Doxy Nebs Prednisone 40mg - Pulm consulted, follows with Dr. Hart/ROSELINE Carmichael ACUTE RENAL FAILURE - hold Lasix - gentle IV fluids other diagnoses and plan of care as per GISSEL Gomez's notes Eric Acevedo MD Advanced Directives Existing Living Will: No Existing Power of Professor Of Religion: No VTE Prophylaxis VTE Risk Assessment Done? Y/N: Yes Risk Level: Moderate
[2017-10-01 20:00] VITALS: BP 140/84; PULSE 87; TEMP 36.9; O2SAT 94
[2017-10-01 20:45] LABS: INFLUENZA A PCR Neg for Influ A (NEG); INFLUENZA B PCR Neg for Influ B (NEG)
[2017-10-01] MEDS: ASPIRIN 81 MG ECTAB PO SCH ×2 (21:00→21:08)
[2017-10-01] MEDS: FLUTICASONE/SALMETEROL (ADVAIR) 500/50 INH 14 PUFF INH SCH (21:08)
[2017-10-01] MEDS: METOPROLOL TARTRATE 50 MG TAB PO SCH (21:09)
[2017-10-01] MEDS: PRAVASTATIN SOD 40 MG TAB PO SCH (21:09)
[2017-10-01] MEDS: TAMSULOSIN HCL 0.4 MG CAP PO SCH (21:09)
[2017-10-01] MEDS: CLONIDINE HCL 0.1 MG TAB PO SCH (21:09)
[2017-10-01] MEDS: HEPARIN SOD 5000 UNIT/0.5 ML CARP SQ SCH (22:00)
[2017-10-01 23:30] VITALS: BP 156/86; PULSE 84; TEMP 37; O2SAT 96
[2017-10-02] VITALS (10 sets, daily range): BP systolic 135–177; BP diastolic 75–90; PULSE 71–92; TEMP 36.5–37.1; O2SAT 93–97
[2017-10-02] MEDS: ALBUT/IPRATROP 3MG/0.5MG NEB 3 ML VIAL INH SCH ×4 (03:50→19:11)
[2017-10-02] MEDS: HEPARIN SOD 5000 UNIT/0.5 ML CARP SQ SCH ×3 (05:48→22:00)
[2017-10-02] MEDS: LEVOTHYROXINE 50 MCG TAB PO SCH (06:18)
[2017-10-02 06:35] LABS: HEMATOCRIT 34.2 % (42-52); MEAN CELL VOLUME 93.7 fL (80-100); MEAN CORPUSCULAR HEMOGLOBIN 29.9 pg (25-34); MEAN CORPUSCULAR HGB CONC 31.9 g/dl (32-36); MEAN PLATELET VOLUME 9.9 fL (7.4-10.4); PLATELET COUNT 141 K/uL (130-400); RED BLOOD COUNT 3.65 M/uL (4.7-6.1); WHITE BLOOD COUNT 9.98 K/uL (4.8-10.8)
[2017-10-02 07:04] LABS: BUN/CREATININE RATIO 20.5 (10-20); CREATININE 1.52 mg/dl (0.60-1.40); POTASSIUM 3.9 mmol/L (3.5-5.1)
--- NOTE | 2017-10-02 07:09 | Clinical Documentation Query ---
CLINICAL DOCUMENTATION QUERY 82 year old male who was transferred from [facility] ED for COPD exacerbation and RLL pneumonia. Patient reports he started to feel sick about 3 days ago. In your clinical opinion is this patient being managed for: ( x) Chronic kidney disease, stage 3 ( ) Not Agree ( ) Other explanation of clinical findings (Please Explain) ( ) Unable to determine (Please Define) ( ) Need to Discuss The medical record reflects the following clinical findings, treatment, and risk factors. Clinical Indicators: Baseline GFR 51.5 to 56.8 Treatment: Telemetry, I&O, IV hydration, PRPs Risk Factors: Age, CARMELLA, HTN, CHF, CAD Please clarify and document your clinical opinion in the progress notes and discharge summary. Terms such as "probable", "suspected", "likely", "questionable", "possible", or "still to be ruled out" are acceptable. IF IN AGREEMENT, YOU MUST DOCUMENT ABOVE DIAGNOSTIC STATEMENT IN DAILY PROGRESS NOTES AND DISCHARGE SUMMARY. This document is not part of the patient's record. Thank You, Ariane Borden RN [phone]
[2017-10-02] MEDS: CEFTRIAXONE SOD INJ 1 GM in DEXTROSE 5% ADD-VANTAGE 50ML 50 ML IV SCH (07:37)
[2017-10-02] MEDS: FLUTICASONE/SALMETEROL (ADVAIR) 500/50 INH 14 PUFF INH SCH ×2 (07:37→20:56)
[2017-10-02] MEDS: ALLOPURINOL 300 MG TAB PO SCH (07:39)
[2017-10-02] MEDS: DOXYCYCLINE HYCLATE 100 MG CAP PO SCH ×2 (07:39→21:03)
[2017-10-02] MEDS: CLONIDINE HCL 0.1 MG TAB PO SCH ×2 (07:39→21:03)
[2017-10-02] MEDS: METOPROLOL TARTRATE 50 MG TAB PO SCH ×2 (07:40→21:01)
[2017-10-02] MEDS: SODIUM CHLORIDE 0.9% 1000ML 1,000 ML IV SCH ×2 (08:00→21:05)
--- NOTE | 2017-10-02 11:54 | Pulmonary Consultation ---
History General Date of Service: Oct 02, 2017. Stated Complaint: Copd Exacerbation, Pneumonia HPI Patient is an 82 yo male presenting to [facility] from [facility] ED for concerns of right lower lobe pneumonia and COPD exacerbation. The patient does have chronic respiratory failure with hypoxia and chronic O2 dependence, COPD, chronic diastolic CHF, CARMELLA, and CAD. The patient initially began to feel sick about 3 days prior to admission at which time he began to have increasing SOB, mucus production, and GIBSON. The patient does use home O2, but did not feel that it was helping his SOB. He is complaining of coughing up some pink/brown/grajeda sputum today as well. He states that his coughing fits have been quite severe at times , and he also feels as though he could throw up after coughing since he began feeling ill. He has not vomited. Patient follows with Fidencio Carmichael PA-C as an outpatient for pulmonary problems. Sputum culture from [facility] is showing moderate normal marv. I did speak to the lab regarding this culture as well. Culture was not finalized yet. The patient is currently on IV Ceftriaxone, Doxycycline, and PO Prednisone. He feels that his symptoms have slightly improved, but he continues to be lethargic and weak. Labs reviewed: WBC 9.98 Hgb 10.5 Creatinine 1.52 BUN 31 Total protein on admission 6.0, Albumin 3.0 Chest X-Ray upon admission showed dense airspace consolidation of the right lung base consistent with pneumonia. These images were viewed by me and reviewed with Dr. Mendez. PFTs 05/06/16: PRE POST FVC 2.55/70% 3.23/89% FEV1 0.55/20% 0.79/28% FEV1/FVC 22% 24% TLC 5.76/94% DLCO 73% DLCO/VA 57% Historian: patient Review of Systems Constitutional: reports: chills, malaise, weakness Eyes: denies: eye pain ENT: denies: loss of hearing Cardiovascular: denies: chest pain, chest pressure, chest tightness, edema Respiratory: reports: cough, shortness of breath, wheezing, sputum production, GIBSON Gastrointestinal: reports: nausea, denies: vomiting Genitourinary - Male: denies: dysuria Integumentary: denies: rash Neurologic: denies: headache All Other Symptoms All Other Systems: Reviewed and Negative Past Medical History Past Medical History: Medical Problems: (1) AAA (abdominal aortic aneurysm) without rupture (2) Asthma (3) Benign enlargement of prostate (4) CAD (coronary artery disease) (5) Chronic diastolic heart failure (6) Chronic obstructive lung disease (7) Dependence on continuous supplemental oxygen (8) Gout (9) H/O seborrheic keratosis (10) History of CVA (cerebrovascular accident) without residual deficits (11) Hx MRSA infection (12) Hx of pulmonary aspiration (13) Hypertension (14) Hypothyroidism (15) Mixed hyperlipidemia (16) Pulmonary emphysema (17) Pulmonary hypertension (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 Surgical Problems: (1) Hx of squamous cell carcinoma excision (2) S/P AAA repair (3) S/P coronary artery stent placement (4) S/P hernia repair (5) S/P knee replacement Past Medical History: asthma, COPD, coronary artery disease, gout, high cholesterol, hypertension, other Past Surgical History: cardiac catheterization, TKR, other Family History Cancer Heart disease Hypertension Kidney disease Kidney stones Lung disease Seizures Social History Hx Tobacco Use In Past Year?: No Smoking Status: Former Smoker Alcohol: no current use Housing status: lives alone History of MDRO History of MDRO: Yes Type of MDRO: MRSA Allergies Coded Allergies: Moxifloxacin (Verified Adverse Reaction, Mild, dizziness, 06/13/17) Current Medications Reported Home Medications Medications Dose Route/Sig Max Daily Dose Days Date Category Dose Instructions Ventolin Hfa (Albuterol) 200 Puffs/62281 Mcg Aers 2-4 Puffs INH Q6H PRN 06/06/17 Reported Advair Diskus 500/50 60 Dose (Fluticasone Prop/Salmeterol) 1 Ea Aerp 1 Puffs INH BID 30 06/06/17 Reported Duoneb (Ipratropium-Albuterol) 3 Ml Nebu 1 Treatment INH Q6H PRN 15 02/01/17 Rx may also use every 2-4 hours PRN for shortness of breath or wheezing Flomax (Tamsulosin Hcl) 0.4 Mg Cap 0.4 Mg PO PM 01/26/17 Reported Prinivil (Lisinopril) 5 Mg Tab 5 Mg PO PM 01/26/17 Reported Synthroid (Levothyroxine Sodium) 50 Mcg Tab 50 Mcg PO QAM 4/2/17 Reported Furosemide 40 Mg Tab 40 Mg PO QAM 12/09/15 Reported Oxygen Gas 2 Liters NA UD 30 03/20/15 Rx OXYGEN 2LTS VIA NASAL CANULA AT REST AND 3LTS WHILE AMBULATING CONTINOUSLY Furosemide 20 Mg Tab 20 Mg PO QAM 03/14/15 Reported Zyloprim (Allopurinol) 300 Mg Tab 300 Mg PO QAM 03/14/15 Reported Combivent Respimat (Ipratropium-Albuterol) 1 Aer Aer 1 Puffs INH QID PRN 03/14/15 Reported Lopressor (Metoprolol Tartrate) 50 Mg Tab 50 Mg PO BID 10/24/14 Reported Catapres (Clonidine Hcl) 0.2 Mg Tab 0.2 Mg PO BID 10/28/13 Reported Aspirin Ec (Aspirin) 81 Mg Tab 81 Mg PO HS 05/07/13 Reported Pravastatin Sodium 40 Mg Tab 40 Mg PO HS 05/07/13 Reported Physical Physical Exam Vital Signs: Date Time Temp Pulse Resp B/P (MAP) Pulse Ox O2 Delivery O2 Flow Rate FiO2 10/02/17 08:00 Nasal Cannula 3.0 10/02/17 07:37 36.8 78 20 175/83 (113) 97 Nasal Cannula 3.0 10/02/17 07:12 77 16 94 Nasal Cannula 3.0 10/02/17 04:00 Nasal Cannula 3.0 10/02/17 03:52 37.1 87 26 163/85 (111) 94 Nasal Cannula 3.0 10/02/17 03:50 73 16 93 Nasal Cannula 3.0 10/02/17 00:01 Nasal Cannula 3.0 10/01/17 23:30 37.0 84 28 156/86 (109) 96 Nasal Cannula 3.0 10/01/17 20:00 Nasal Cannula 3.0 10/01/17 20:00 36.9 87 22 140/84 (102) 94 Nasal Cannula 3.0 10/01/17 19:43 72 16 94 Nasal Cannula 3.0 10/01/17 17:22 36.4 88 18 144/76 92 Nasal Cannula 3.0 VS reviewed: Patient saturating well with Nasal cannula O2. SaO2 92-97% since admission. Afebrile. HR 71 RR 20-24 BP 135/75 General Appearance: WD/WN, NO APPARENT DISTRESS Head: NORMOCEPHALIC, ATRAUMATIC Eyes: EOMI Neck: NORMAL RANGE OF MOTION, TRACHEA MIDLINE Respiratory: other (decreased breath sounds throughout. Wheezing noted in the RLL. Nasal cannula O2 in place) Cardiovasular: REGULAR RATE/RHYTHM Abdomen: NON TENDER, NORMAL BOWEL SOUNDS Back: NORMAL INSPECTION Lower Extremities: NO EDEMA Neuro: ALERT Psychiatric: NORMAL AFFECT Diagnostics Labs Results Past 24 Hours Test 10/01/17 18:00 10/01/17 18:02 10/02/17 06:10 Range/Units Influenza Type A (RT-PCR) Neg for Influ A NEG Influenza Type B (RT-PCR) Neg for Influ B NEG White Blood Count 9.44 9.98 4.8-10.8 K/uL Red Blood Count 4.18 3.65 4.7-6.1 M/uL Hemoglobin 12.9 10.9 14.0-18.0 g/dL Hematocrit 39.3 34.2 42-52 % Mean Corpuscular Volume 94.0 93.7 80-100 fL Mean Corpuscular Hemoglobin 30.9 29.9 25-34 pg Mean Corpuscular Hemoglobin Concent 32.8 31.9 32-36 g/dl Platelet Count 145 141 130-400 K/uL Mean Platelet Volume 9.3 9.9 7.4-10.4 fL Neutrophils (%) (Auto) 92.0 % Lymphocytes (%) (Auto) 3.4 % Monocytes (%) (Auto) 4.1 % Eosinophils (%) (Auto) 0.1 % Basophils (%) (Auto) 0.1 % Neutrophils # (Auto) 8.68 1.4-6.5 K/uL Lymphocytes # (Auto) 0.32 1.2-3.4 K/uL Monocytes # (Auto) 0.39 0.11-0.59 K/uL Eosinophils # (Auto) 0.01 0-0.5 K/uL Basophils # (Auto) 0.01 0-0.2 K/uL RDW Standard Deviation 47.8 49.0 36.4-46.3 fL RDW Coefficient of Variation 14.0 14.3 11.5-14.5 % Immature Granulocyte % (Auto) 0.3 % Immature Granulocyte # (Auto) 0.03 0.00-0.02 K/uL Red Blood Cell Morphology Unremarkable Prothrombin Time 10.2 9.0-12.0 SECONDS Prothromb Time International Ratio 1.0 0.9-1.1 Activated Partial Thromboplast Time 28.2 21.0-31.0 SECONDS Partial Thromboplastin Ratio 1.1 Sodium Level 136 136 136-145 mmol/L Potassium Level 3.7 3.9 3.5-5.1 mmol/L Chloride Level 99 102 98-107 mmol/L Carbon Dioxide Level 30 29 21-32 mmol/L Anion Gap 6.0 5.0 3-11 mmol/L Blood Urea Nitrogen 30 31 7-18 mg/dl Creatinine 1.71 1.52 0.60-1.40 mg/dl Est Creatinine Clear Calc Drug Dose 33.9 38.1 ml/min Estimated GFR () 42.6 49.1 Estimated GFR (Non- 36.7 42.4 BUN/Creatinine Ratio 17.5 20.5 10-20 Random Glucose 193 132 70-99 mg/dl Lactic Acid Level 1.5 0.4-2.0 mmol/L Calcium Level 8.5 8.0 8.5-10.1 mg/dl Phosphorus Level 2.6 2.5-4.9 mg/dl Magnesium Level 2.3 1.8-2.4 mg/dl Total Bilirubin 0.5 0.2-1 mg/dl Aspartate Amino Transf (AST/SGOT) 14 15-37 U/L Alanine Aminotransferase (ALT/SGPT) 12 12-78 U/L Alkaline Phosphatase 29 45-117 U/L Total Protein 6.0 6.4-8.2 gm/dl Albumin 3.0 3.4-5.0 gm/dl Globulin 3.0 2.5-4.0 gm/dl Albumin/Globulin Ratio 1.0 0.9-2 Diagnostic Radiology SINGLE VIEW CHEST CLINICAL HISTORY: Dyspnea. FINDINGS: An AP, portable, upright chest radiograph is compared to study dated 06/06/2017 and correlated with chest CT dated 06/18/2016. The examination is degraded by portable technique and patient rotation. The heart is enlarged and there is atherosclerotic calcification of the thoracic aorta. The pulmonary vasculature is noncongested. Advanced emphysema and chronic interstitial thickening are similar to previous. There is patchy airspace consolidation throughout the right lower lung. Mild patchy consolidation is seen at the left lung base. Trace pleural effusions are noted. No pneumothorax is seen. The skeletal structures are osteopenic. There are healed right-sided rib fractures. Degenerative change and scoliosis are noted in the thoracic spine. IMPRESSION: 1. Cardiomegaly and emphysema. 2. There is dense airspace consolidation at the right lung base. Airspace consolidation is also seen at the left lung base. The appearance is typical for pneumonia. Clinical correlation will be required and radiographic follow-up to resolution is recommended. 3. Trace pleural effusions are identified. EKG Poor data quality, interpretation may be adversely affected Wide QRS rhythm Right bundle branch block Impression Assessment and Plan RLL Pneumonia Severe COPD with exacerbation Chronic hypoxic respiratory failure with O2 dependence Chronic diastolic CHF CARMELLA CAD Patient is currently admitted to telemetry and on droplet precautions. Flu was negative. Will D/C Droplet precautions. He continues on IV Ceftriaxone and Doxycycline. These are appropriate pending further improvement. Patient continues to have brown/grajeda sputum production. This has slightly decreased. Sputum cultrue from [facility] showing moderate normal marv. Patient is also on PO Prednisone 40 mg daily, Duoneb, and Advair. Recommend continuing these medications pending improvement. Patient will likely need 7 days of abx therapy and a slow steroid taper. Follow Chest X-Ray as well Will send Mycoplasma IgM/IgG and Legionella Urinary Ag. Repeat sputum culture. Continue O2 supplementation to maintain SaO2 >88%. If necessary, can utilize high flow oxygen if the patient decompensates. Pulmonary will follow.
[2017-10-02] MEDS ORDERED: ALUMINUM/MAGNESIUM/SIMETH (MAALOX MAX) 30 ML UDC PO PRN (19:30)
--- NOTE | 2017-10-02 20:23 | Progress Note ---
Medicine Progress Note Date & Time of Visit: Oct 02, 2017 at 19:00 . Subjective Persistent productive cough. Less SOB. No fever. No chest pain. Experienced acid reflux last night. No nausea or vomiting. No diarrhea. . Objective Last 8 Hrs Date Time Temp Pulse Resp B/P (MAP) Pulse Ox O2 Delivery O2 Flow Rate FiO2 10/02/17 16:02 36.6 80 18 167/89 (115) 95 Nasal Cannula 2.0 10/02/17 16:00 Nasal Cannula 3.0 10/02/17 14:34 76 16 97 Nasal Cannula 3.0 10/02/17 12:24 36.5 71 24 135/75 (95) 97 Nasal Cannula 3.0 Physical Exam: General- sitting in chair, no distress Lungs- scattered rhonchi, diffuse wheezing; no respiratory distress Heart- RRR, no gallop appreciated Abdomen- + BS, soft, nontender Extremities- no pretibial edema or calf tenderness Skin- warm & dry Neuro- alert . Laboratory Results: Last 24 Hours Test 10/02/17 06:10 10/02/17 15:54 White Blood Count 9.98 K/uL Red Blood Count 3.65 M/uL Hemoglobin 10.9 g/dL Hematocrit 34.2 % Mean Corpuscular Volume 93.7 fL Mean Corpuscular Hemoglobin 29.9 pg Mean Corpuscular Hemoglobin Concent 31.9 g/dl RDW Standard Deviation 49.0 fL RDW Coefficient of Variation 14.3 % Platelet Count 141 K/uL Mean Platelet Volume 9.9 fL Sodium Level 136 mmol/L Potassium Level 3.9 mmol/L Chloride Level 102 mmol/L Carbon Dioxide Level 29 mmol/L Anion Gap 5.0 mmol/L Blood Urea Nitrogen 31 mg/dl Creatinine 1.52 mg/dl Est Creatinine Clear Calc Drug Dose 38.1 ml/min Estimated GFR () 49.1 Estimated GFR (Non- 42.4 BUN/Creatinine Ratio 20.5 Random Glucose 132 mg/dl Calcium Level 8.0 mg/dl Date/Time Source Procedure Growth Status 10/02/17 16:15 Sputum Expectorated Sputum Gram Stain Pending Received 10/02/17 16:15 Sputum Expectorated Sputum Sputum Culture Pending Received Assessment & Plan PNEUMONIA Chest x-ray demonstrated bibasilar infiltrates. Continue doxycycline and ceftriaxone. EXACERBATION COPD Secondary to pneumonia. Continue prednisone and bronchodilators. CORONARY ARTERY DISEASE No anginal symptoms. Continue aspirin, metoprolol, statin. HYPERTENSION Continue metoprolol and clonidine. GERD Patient describes reflux symptoms with water brash. Start ranitidine HS. Check prior evaluation. CKD III / CARMELLA CKD III with baseline creatinine 1.2. Creatinine at time of admission 1.71. Holding furosemide. Creatinine today 1.52. BPH Continue tamsulosin. HYPOTHYROIDISM Continue levothyroxine. VTE PROPHYLAXIS SQ heparin. Ambulate. DISPOSITION Expected discharge to home. Primary care follow-up with Dr. Kelly. Pulmonary follow-up with Fidencio Carmichael PA-C. . Current Inpatient Medications: Current Inpatient Medications Medications (Trade) Dose Ordered Sig/Luis Route Start Time Stop Time Status Last Admin Dose Admin Acetaminophen (Tylenol Tab) 650 mg Q4H PRN PO 10/01/17 17:30 10/31/17 17:29 Heparin Sodium (Porcine) (Heparin Sq 5000 Unit/0.5ml) 5,000 unit Q8 SQ 10/01/17 22:00 10/31/17 21:59 10/02/17 14:00 5,000 UNIT Promethazine HCl 12.5 mg/Sodium Chloride 50.5 ml @ 204 mls/hr Q6H PRN IV 10/01/17 18:30 10/31/17 18:29 Albuterol/ Ipratropium (Duoneb) 3 ml Q6R INH 10/01/17 21:00 10/31/17 20:59 10/02/17 19:11 3 ML Ceftriaxone Sodium 1 gm/ Dextrose 50 ml @ 100 mls/hr Q24H IV 10/02/17 09:00 10/09/17 08:59 10/02/17 07:37 100 MLS/HR Doxycycline Hyclate (Vibramycin Cap) 100 mg BID PO 10/02/17 09:00 10/09/17 08:59 10/02/17 07:39 100 MG Prednisone (PredniSONE TAB) 40 mg DAILY PO 10/02/17 09:00 10/06/17 09:01 10/02/17 07:39 40 MG Albuterol/ Ipratropium (Duoneb) 3 ml Q2H PRN INH 10/01/17 18:45 10/31/17 18:44 Allopurinol (Zyloprim Tab) 300 mg QAM PO 10/02/17 09:00 11/01/17 08:59 10/02/17 07:39 300 MG Aspirin (Ecotrin Tab) 81 mg HS PO 10/01/17 21:00 10/31/17 20:59 Salmeterol Xinafoate/ Fluticasone (Advair Diskus 500/50 Inh) 1 puff BID INH 10/01/17 21:00 10/31/17 20:59 10/02/17 07:37 1 PUFF Levothyroxine Sodium (Synthroid Tab) 50 mcg DAILYBB PO 10/02/17 06:00 11/01/17 05:59 10/02/17 06:18 50 MCG Metoprolol Tartrate (Lopressor Tab) 50 mg BID PO 10/01/17 21:00 10/31/17 20:59 10/02/17 07:40 50 MG Pravastatin Sodium (Pravachol Tab) 40 mg HS PO 10/01/17 21:00 10/31/17 20:59 10/01/17 21:09 40 MG Tamsulosin HCl (Flomax Cap) 0.4 mg PM PO 10/01/17 21:00 10/31/17 20:59 10/01/17 21:09 0.4 MG Clonidine HCl (Catapres Tab) 0.2 mg BID PO 10/01/17 21:00 10/31/17 20:59 10/02/17 07:39 0.2 MG Sodium Chloride 1,000 ml @ 80 mls/hr [id number] IV 10/01/17 19:30 10/31/17 19:29 10/02/17 08:00 80 MLS/HR Ranitidine HCl (zANTac TAB) 300 mg HS PO 10/02/17 21:00 11/01/17 20:59 Al Hydrox/Mg Hydrox/Simethicone (Maalox Max Susp) 15 ml Q6H PRN PO 10/02/17 19:30 11/01/17 19:29
[2017-10-02] MEDS: ASPIRIN 81 MG ECTAB PO SCH (20:57)
[2017-10-02] MEDS: RANITIDINE HCL 150 MG TAB PO SCH (20:57)
[2017-10-02] MEDS: TAMSULOSIN HCL 0.4 MG CAP PO SCH (21:01)
[2017-10-02] MEDS: PRAVASTATIN SOD 40 MG TAB PO SCH (21:03)
[2017-10-03] VITALS (9 sets, daily range): BP systolic 159–209; BP diastolic 81–109; PULSE 77–93; TEMP 36.5–36.9; O2SAT 94–98
[2017-10-03] MEDS: ALBUT/IPRATROP 3MG/0.5MG NEB 3 ML VIAL INH SCH ×4 (02:10→19:25)
[2017-10-03] MEDS: HEPARIN SOD 5000 UNIT/0.5 ML CARP SQ SCH ×2 (06:00→14:32)
[2017-10-03] MEDS: LEVOTHYROXINE 50 MCG TAB PO SCH (06:22)
[2017-10-03] MEDS: CEFTRIAXONE SOD INJ 1 GM in DEXTROSE 5% ADD-VANTAGE 50ML 50 ML IV SCH (07:37)
[2017-10-03] MEDS: FLUTICASONE/SALMETEROL (ADVAIR) 500/50 INH 14 PUFF INH SCH ×2 (07:37→19:54)
[2017-10-03] MEDS: CLONIDINE HCL 0.1 MG TAB PO SCH ×2 (07:38→19:54)
[2017-10-03] MEDS: DOXYCYCLINE HYCLATE 100 MG CAP PO SCH ×2 (07:38→19:54)
[2017-10-03] MEDS: ALLOPURINOL 300 MG TAB PO SCH (07:38)
[2017-10-03] MEDS: METOPROLOL TARTRATE 50 MG TAB PO SCH ×2 (07:39→19:54)
[2017-10-03] MEDS: SODIUM CHLORIDE 0.9% 1000ML 1,000 ML IV SCH ×2 (07:45→21:10)
[2017-10-03 09:15] LABS: BUN/CREATININE RATIO 20.6 (10-20); CALCIUM 8.3 mg/dl (8.5-10.1); CREATININE 1.44 mg/dl (0.60-1.40); POTASSIUM 4.1 mmol/L (3.5-5.1)
--- NOTE | 2017-10-03 11:28 | Pulmonology Progress Note ---
Pulmonary Progress Note Date of Service Oct 03, 2017. Attending Dr. Mendez Subjective Patient seen and examined at bedside this morning. He states he didn't sleep well overnight.. He is still mildly short of breath. Still having cough with productive sputum that is somewhat pinkish in color. He denies any chest pain. Objective Vital signs within the last 24 hours show MAXIMUM TEMPERATURE of 36.6, blood pressure 159/84 to 176/93, pulse 77-82, respiratory 16-22, pulse oximetry 94-98 % on 3 L nasal cannula. His chemosis balance is 1.9 L positive. Gen. awake alert oriented 3, no acute respiratory distress, speaking in full sentences with no use of accessory muscles of respiration. CVS: S1-S2 regular rate and rhythm Lungs: Good air entry bilaterally, crackles at right lung base, no wheezing Abdomen obese: Nontender, nondistended bowel sounds positive Extremities: Left lower extremity edema +2, right lower extremity no edema, no cyanosis, no clubbing. Labs reviewed. Hemoglobin 10.9 from 12.9. BUN 30, creatinine 1.44 improving from 1.52. Influenza A and B PCR negative. Urinary Legionella antigen pending. Mycoplasma pneumonia IgG and IgM pending. Sputum culture from 10/02/2017-contaminated Imaging reviewed and viewed. Medications reviewed. Assessment & Plan Hypoxemia Right lower lobe pneumonia COPD Hypertension Diastolic dysfunction Patient appears to be improving from a respiratory standpoint. He still having productive cough with pinkish colored sputum. This is likely from underlying respiratory infection. He does have history of pulmonary hypertension. This is most likely secondary to both combination of type II and type III as he does have history of underlying diastolic dysfunction and chronic hypoxemic respiratory failure. Continue with supplemental oxygen of 3 L nasal cannula. This is his baseline. Use BiPAP for high flow nasal cannula if needed. Recommend that we continue to treat for pneumonia with ceftriaxone and doxycycline. Continue for 5-7 days. Follow-up cultures from [facility] as the cultures that we have are contaminated. Continue with nebulizers every 4-6 hours standing and when necessary. Continue with Advair 500/50 inhaled 1 puff twice a day. Continue with prednisone 40 mg daily and taper Continue with flutter valve and incentive spirometry. Continue to optimize BP per hospitalist team management. Continue with diuresis once kidney function improves Continue with DVT prophylaxis Continue with GI prophylaxis and aspiration precautions as he does have previous history of aspiration in the past. He should follow up with Fidencio Carmichael and Dr. Hart at the [facility] pulmonary group on discharge Data Medications: Current Inpatient Medications Medications (Trade) Dose Ordered Sig/Luis Route Start Time Stop Time Status Last Admin Dose Admin Acetaminophen (Tylenol Tab) 650 mg Q4H PRN PO 10/01/17 17:30 10/31/17 17:29 Heparin Sodium (Porcine) (Heparin Sq 5000 Unit/0.5ml) 5,000 unit Q8 SQ 10/01/17 22:00 10/31/17 21:59 10/03/17 06:00 5,000 UNIT Promethazine HCl 12.5 mg/Sodium Chloride 50.5 ml @ 204 mls/hr Q6H PRN IV 10/01/17 18:30 10/31/17 18:29 Albuterol/ Ipratropium (Duoneb) 3 ml Q6R INH 10/01/17 21:00 10/31/17 20:59 10/03/17 07:02 3 ML Ceftriaxone Sodium 1 gm/ Dextrose 50 ml @ 100 mls/hr Q24H IV 10/02/17 09:00 10/09/17 08:59 10/03/17 07:37 100 MLS/HR Doxycycline Hyclate (Vibramycin Cap) 100 mg BID PO 10/02/17 09:00 10/09/17 08:59 10/03/17 07:38 100 MG Prednisone (PredniSONE TAB) 40 mg DAILY PO 10/02/17 09:00 10/06/17 09:01 10/03/17 07:38 40 MG Albuterol/ Ipratropium (Duoneb) 3 ml Q2H PRN INH 10/01/17 18:45 10/31/17 18:44 Allopurinol (Zyloprim Tab) 300 mg QAM PO 10/02/17 09:00 11/01/17 08:59 10/03/17 07:38 300 MG Aspirin (Ecotrin Tab) 81 mg HS PO 10/01/17 21:00 10/31/17 20:59 10/02/17 20:57 81 MG Salmeterol Xinafoate/ Fluticasone (Advair Diskus 500/50 Inh) 1 puff BID INH 10/01/17 21:00 10/31/17 20:59 10/03/17 07:37 1 PUFF Levothyroxine Sodium (Synthroid Tab) 50 mcg DAILYBB PO 10/02/17 06:00 11/01/17 05:59 10/03/17 06:22 50 MCG Metoprolol Tartrate (Lopressor Tab) 50 mg BID PO 10/01/17 21:00 10/31/17 20:59 10/03/17 07:39 50 MG Pravastatin Sodium (Pravachol Tab) 40 mg HS PO 10/01/17 21:00 10/31/17 20:59 10/02/17 21:03 40 MG Tamsulosin HCl (Flomax Cap) 0.4 mg PM PO 10/01/17 21:00 10/31/17 20:59 10/02/17 21:01 0.4 MG Clonidine HCl (Catapres Tab) 0.2 mg BID PO 10/01/17 21:00 10/31/17 20:59 10/03/17 07:38 0.2 MG Sodium Chloride 1,000 ml @ 80 mls/hr [id number] IV 10/01/17 19:30 10/31/17 19:29 10/03/17 07:45 80 MLS/HR Ranitidine HCl (zANTac TAB) 300 mg HS PO 10/02/17 21:00 11/01/17 20:59 10/02/17 20:57 300 MG Al Hydrox/Mg Hydrox/Simethicone (Maalox Max Susp) 15 ml Q6H PRN PO 10/02/17 19:30 11/01/17 19:29 Vital Signs: Date Time Temp Pulse Resp B/P (MAP) Pulse Ox O2 Delivery O2 Flow Rate FiO2 10/03/17 08:00 Nasal Cannula 3.0 10/03/17 07:43 36.6 77 20 176/93 (120) 98 10/03/17 07:02 82 16 94 Nasal Cannula 3.0 10/03/17 04:00 Nasal Cannula 3.0 10/03/17 04:00 36.6 77 22 159/84 (109) 95 Nasal Cannula 3.0 10/03/17 02:10 77 16 94 Nasal Cannula 3.0 10/03/17 00:01 Nasal Cannula 3.0 10/02/17 22:45 36.5 85 17 175/89 (117) 97 Nasal Cannula 3.0 10/02/17 20:50 36.6 92 22 177/90 (119) 96 Nasal Cannula 3.0 10/02/17 20:00 Nasal Cannula 3.0 10/02/17 19:11 87 16 95 Nasal Cannula 3.0 10/02/17 16:02 36.6 80 18 167/89 (115) 95 Nasal Cannula 2.0 10/02/17 16:00 Nasal Cannula 3.0 10/02/17 14:34 76 16 97 Nasal Cannula 3.0 10/02/17 12:24 36.5 71 24 135/75 (95) 97 Nasal Cannula 3.0 10/02/17 12:00 Nasal Cannula 3.0 Laboratory Results: Last 24 Hours Test 10/02/17 15:54 10/03/17 08:25 Sodium Level 139 mmol/L Potassium Level 4.1 mmol/L Chloride Level 105 mmol/L Carbon Dioxide Level 30 mmol/L Anion Gap 4.0 mmol/L Blood Urea Nitrogen 30 mg/dl Creatinine 1.44 mg/dl Est Creatinine Clear Calc Drug Dose 40.3 ml/min Estimated GFR () 52.4 Estimated GFR (Non- 45.2 BUN/Creatinine Ratio 20.6 Random Glucose 171 mg/dl Calcium Level 8.3 mg/dl
[2017-10-03] MEDS ORDERED: MAGNESIUM HYDROXIDE SUSP 30 ML UDC PO ONE (14:55)
[2017-10-03] MEDS ORDERED: MAGNESIUM HYDROXIDE SUSP 30 ML UDC PO PRN (15:00)
[2017-10-03] MEDS: RANITIDINE HCL 150 MG TAB PO SCH (19:54)
[2017-10-03] MEDS: PRAVASTATIN SOD 40 MG TAB PO SCH (19:54)
[2017-10-03] MEDS: ASPIRIN 81 MG ECTAB PO SCH (19:55)
[2017-10-03] MEDS: TAMSULOSIN HCL 0.4 MG CAP PO SCH (19:55)
--- NOTE | 2017-10-03 21:55 | Progress Note ---
Medicine Progress Note Date & Time of Visit: Oct 03, 2017 at 14:30 . Subjective Persistent cough, productive of blood-tinged sputum. Intermittent SOB. No fever. No chest pain. No nausea, vomiting. Constipated. . Objective Last 8 Hrs Date Time Temp Pulse Resp B/P (MAP) Pulse Ox O2 Delivery O2 Flow Rate FiO2 10/03/17 20:00 Nasal Cannula 3.0 10/03/17 19:25 93 16 96 Nasal Cannula 3.0 10/03/17 16:00 Room Air 10/03/17 15:35 36.5 81 18 189/97 (127) 95 Nasal Cannula 3.0 Physical Exam: General- lying in bed, no distress Lungs- scattered rhonchi, diffuse wheezing; no respiratory distress Heart- RRR, no gallop appreciated Abdomen- + BS, soft, nontender Extremities- 1+ pretibial edema LLE; trace pretibial edema RLE; no calf tenderness Skin- warm & dry Neuro- alert . Laboratory Results: Last 24 Hours Test 10/03/17 08:25 Sodium Level 139 mmol/L Potassium Level 4.1 mmol/L Chloride Level 105 mmol/L Carbon Dioxide Level 30 mmol/L Anion Gap 4.0 mmol/L Blood Urea Nitrogen 30 mg/dl Creatinine 1.44 mg/dl Est Creatinine Clear Calc Drug Dose 40.3 ml/min Estimated GFR () 52.4 Estimated GFR (Non- 45.2 BUN/Creatinine Ratio 20.6 Random Glucose 171 mg/dl Calcium Level 8.3 mg/dl Date/Time Source Procedure Growth Status 10/03/17 14:02 Sputum Expectorated Sputum Gram Stain Pending Received 10/03/17 14:02 Sputum Expectorated Sputum Sputum Culture Pending Received Assessment & Plan PNEUMONIA Chest x-ray demonstrated bibasilar infiltrates. Sputum culture 10/02- upper airway contamination; repeat pending. Continue doxycycline and ceftriaxone. May need to broaden coverage if no improvement. EXACERBATION COPD Secondary to pneumonia. Continue prednisone and bronchodilators. CORONARY ARTERY DISEASE No anginal symptoms. Continue aspirin, metoprolol, statin. CHF History chronic left ventricular diastolic heart failure. Compensated. Holding furosemide due to elevated creatinine. Follow. HYPERTENSION Continue metoprolol and clonidine. GERD Patient describes reflux symptoms with water brash. Started ranitidine HS. CKD III / CARMELLA CKD III with baseline creatinine 1.2. Creatinine at time of admission 1.71. Holding furosemide. Creatinine today = 1.44. BPH Continue tamsulosin. HYPOTHYROIDISM Continue levothyroxine. HYPERGLYCEMIA Random glucose on admission 193. Check Hgb A1C. Receiving steroids. Follow. HISTORY MRSA Contact precautions. LEFT LOWER EXTREMITY EDEMA Chronic per patient and records. VTE PROPHYLAXIS Initially received SQ heparin, but stopped because of blood-tinged sputum. SCD's. Ambulate. DISPOSITION Expected discharge to home. Primary care follow-up with Dr. Kelly. Pulmonary follow-up with Fidencio Carmichael PA-C. . Current Inpatient Medications: Current Inpatient Medications Medications (Trade) Dose Ordered Sig/Luis Route Start Time Stop Time Status Last Admin Dose Admin Acetaminophen (Tylenol Tab) 650 mg Q4H PRN PO 10/01/17 17:30 10/31/17 17:29 Promethazine HCl 12.5 mg/Sodium Chloride 50.5 ml @ 204 mls/hr Q6H PRN IV 10/01/17 18:30 10/31/17 18:29 Albuterol/ Ipratropium (Duoneb) 3 ml Q6R INH 10/01/17 21:00 10/31/17 20:59 10/03/17 19:25 3 ML Ceftriaxone Sodium 1 gm/ Dextrose 50 ml @ 100 mls/hr Q24H IV 10/02/17 09:00 10/09/17 08:59 10/03/17 07:37 100 MLS/HR Doxycycline Hyclate (Vibramycin Cap) 100 mg BID PO 10/02/17 09:00 10/09/17 08:59 10/03/17 19:54 100 MG Prednisone (PredniSONE TAB) 40 mg DAILY PO 10/02/17 09:00 10/06/17 09:01 10/03/17 07:38 40 MG Albuterol/ Ipratropium (Duoneb) 3 ml Q2H PRN INH 10/01/17 18:45 10/31/17 18:44 Allopurinol (Zyloprim Tab) 300 mg QAM PO 10/02/17 09:00 11/01/17 08:59 10/03/17 07:38 300 MG Aspirin (Ecotrin Tab) 81 mg HS PO 10/01/17 21:00 10/31/17 20:59 10/03/17 19:55 81 MG Salmeterol Xinafoate/ Fluticasone (Advair Diskus 500/50 Inh) 1 puff BID INH 10/01/17 21:00 10/31/17 20:59 10/03/17 19:54 1 PUFF Levothyroxine Sodium (Synthroid Tab) 50 mcg DAILYBB PO 10/02/17 06:00 11/01/17 05:59 10/03/17 06:22 50 MCG Metoprolol Tartrate (Lopressor Tab) 50 mg BID PO 10/01/17 21:00 10/31/17 20:59 10/03/17 19:54 50 MG Pravastatin Sodium (Pravachol Tab) 40 mg HS PO 10/01/17 21:00 10/31/17 20:59 10/03/17 19:54 40 MG Tamsulosin HCl (Flomax Cap) 0.4 mg PM PO 10/01/17 21:00 10/31/17 20:59 10/03/17 19:55 0.4 MG Clonidine HCl (Catapres Tab) 0.2 mg BID PO 10/01/17 21:00 10/31/17 20:59 10/03/17 19:54 0.2 MG Sodium Chloride 1,000 ml @ 80 mls/hr [id number] IV 10/01/17 19:30 10/31/17 19:29 10/03/17 21:10 80 MLS/HR Ranitidine HCl (zANTac TAB) 300 mg HS PO 10/02/17 21:00 11/01/17 20:59 10/03/17 19:54 300 MG Al Hydrox/Mg Hydrox/Simethicone (Maalox Max Susp) 15 ml Q6H PRN PO 10/02/17 19:30 11/01/17 19:29 Magnesium Hydroxide (Milk Of Magnesia Susp) 30 ml BID PRN PO 10/03/17 15:00 11/02/17 14:59
[2017-10-04] VITALS (13 sets, daily range): BP systolic 164–192; BP diastolic 82–97; PULSE 79–105; TEMP 36.4–36.8; O2SAT 85–96
[2017-10-04] MEDS: HydrALAZINE HCL 20 MG/ML VIAL IV. PRN ×2 (00:31→20:09)
[2017-10-04] MEDS: ALBUT/IPRATROP 3MG/0.5MG NEB 3 ML VIAL INH SCH ×4 (00:47→13:32)
[2017-10-04] MEDS ORDERED: AMLODIPINE BESYLATE 5 MG TAB PO ONE (03:30)
[2017-10-04] MEDS: LEVOTHYROXINE 50 MCG TAB PO SCH (05:17)
[2017-10-04 08:19] LABS: ESTIMATED AVERAGE GLUCOSE 137 mg/dl; HA1C FLAG Normal (Normal)
[2017-10-04 08:20] LABS: BUN/CREATININE RATIO 16.7 (10-20); CALCIUM 8.3 mg/dl (8.5-10.1); CREATININE 1.22 mg/dl (0.60-1.40); POTASSIUM 3.5 mmol/L (3.5-5.1)
[2017-10-04] MEDS: CEFTRIAXONE SOD INJ 1 GM in DEXTROSE 5% ADD-VANTAGE 50ML 50 ML IV SCH (09:13)
[2017-10-04] MEDS: CLONIDINE HCL 0.1 MG TAB PO SCH ×2 (09:13→20:19)
[2017-10-04] MEDS: FLUTICASONE/SALMETEROL (ADVAIR) 500/50 INH 14 PUFF INH SCH ×2 (09:13→20:11)
[2017-10-04] MEDS: DOXYCYCLINE HYCLATE 100 MG CAP PO SCH ×2 (09:14→20:21)
[2017-10-04] MEDS: ALLOPURINOL 300 MG TAB PO SCH (09:14)
[2017-10-04] MEDS: PANTOprazole SOD 40 MG TAB PO SCH ×2 (09:14→20:21)
[2017-10-04] MEDS: METOPROLOL TARTRATE 50 MG TAB PO SCH ×2 (09:14→20:22)
[2017-10-04] MEDS: SODIUM CHLORIDE 0.9% 1000ML 1,000 ML IV SCH (10:22)
--- NOTE | 2017-10-04 12:25 | Pulmonology Progress Note ---
Pulmonary Progress Note Date of Service Oct 04, 2017. Attending Dr. Mendez Subjective Patient seen and examined at bedside. Per nursing staff has been altered overnight with hallucination and speaking to others not present in the room. Still having cough with productive sputum. He denies any chest pain, shortness of breath. Still remains quite hypoxic on room air. Objective Vital signs within the last 24 hours show MAXIMUM TEMPERATURE of 36.6, blood pressure 164/89 to 191/93, pulse 79-105, respiratory 16-22, pulse oximetry 85-96 % % on 3 L nasal cannula. Gen. awake alert oriented 1, no acute respiratory distress, speaking in full sentences with no use of accessory muscles of respiration. CVS: S1-S2 regular rate and rhythm Lungs: Good air entry bilaterally, crackles at right lung base, no wheezing, tachypnic. Abdomen obese: Nontender, nondistended bowel sounds positive Extremities: Left lower extremity edema +2, right lower extremity no edema, no cyanosis, no clubbing. Labs reviewed. Influenza A and B PCR negative. Urinary Legionella antigen pending. Mycoplasma pneumonia IgG and IgM pending. Sputum culture from 10/02/2017-contaminated Imaging reviewed and viewed. Medications reviewed. Assessment & Plan Hypoxemia Right lower lobe pneumonia COPD Hypertension Diastolic dysfunction Patient appears to be improving from a respiratory standpoint. He still having productive cough This is likely from underlying respiratory infection. Now altered. Will obtain ABG to evaluate for hypercapnic respiratory failure. Continue with supplemental oxygen of 3 L nasal cannula, he has hypoxic off of oxygen. Recommend that we continue to treat for pneumonia with ceftriaxone and doxycycline. Continue for 5-7 days. Follow-up cultures from [facility] as the cultures that we have are contaminated. Continue with nebulizers every 4-6 hours standing and when necessary. Continue with Advair 500/50 inhaled 1 puff twice a day. Continue with prednisone 40 mg daily and taper Continue with flutter valve and incentive spirometry. Continue to optimize BP per hospitalist team management. Continue with diuresis once kidney function improves Continue with DVT prophylaxis Continue with GI prophylaxis and aspiration precautions as he does have previous history of aspiration in the past. I will obtain a chest x-ray tomorrow morning to assess for interval resolution. He should follow up with Fidencio Carmichael and Dr. Hart at the [facility] pulmonary group on discharge Data Medications: Current Inpatient Medications Medications (Trade) Dose Ordered Sig/Luis Route Start Time Stop Time Status Last Admin Dose Admin Acetaminophen (Tylenol Tab) 650 mg Q4H PRN PO 10/01/17 17:30 10/31/17 17:29 Albuterol/ Ipratropium (Duoneb) 3 ml Q6R INH 10/01/17 21:00 10/31/17 20:59 10/04/17 06:55 3 ML Ceftriaxone Sodium 1 gm/ Dextrose 50 ml @ 100 mls/hr Q24H IV 10/02/17 09:00 10/09/17 08:59 10/04/17 09:13 100 MLS/HR Doxycycline Hyclate (Vibramycin Cap) 100 mg BID PO 10/02/17 09:00 10/09/17 08:59 10/04/17 09:14 100 MG Prednisone (PredniSONE TAB) 40 mg DAILY PO 10/02/17 09:00 10/06/17 09:01 10/04/17 09:14 40 MG Albuterol/ Ipratropium (Duoneb) 3 ml Q2H PRN INH 10/01/17 18:45 10/31/17 18:44 Allopurinol (Zyloprim Tab) 300 mg QAM PO 10/02/17 09:00 11/01/17 08:59 10/04/17 09:14 300 MG Aspirin (Ecotrin Tab) 81 mg HS PO 10/01/17 21:00 10/31/17 20:59 10/03/17 19:55 81 MG Salmeterol Xinafoate/ Fluticasone (Advair Diskus 500/50 Inh) 1 puff BID INH 10/01/17 21:00 10/31/17 20:59 10/04/17 09:13 1 PUFF Levothyroxine Sodium (Synthroid Tab) 50 mcg DAILYBB PO 10/02/17 06:00 11/01/17 05:59 10/04/17 05:17 50 MCG Metoprolol Tartrate (Lopressor Tab) 50 mg BID PO 10/01/17 21:00 10/31/17 20:59 10/04/17 09:14 50 MG Pravastatin Sodium (Pravachol Tab) 40 mg HS PO 10/01/17 21:00 10/31/17 20:59 10/03/17 19:54 40 MG Tamsulosin HCl (Flomax Cap) 0.4 mg PM PO 10/01/17 21:00 10/31/17 20:59 10/03/17 19:55 0.4 MG Clonidine HCl (Catapres Tab) 0.2 mg BID PO 10/01/17 21:00 10/31/17 20:59 10/04/17 09:13 0.2 MG Sodium Chloride 1,000 ml @ 80 mls/hr [id number] IV 10/01/17 19:30 10/31/17 19:29 10/04/17 10:22 80 MLS/HR Al Hydrox/Mg Hydrox/Simethicone (Maalox Max Susp) 15 ml Q6H PRN PO 10/02/17 19:30 11/01/17 19:29 Magnesium Hydroxide (Milk Of Magnesia Susp) 30 ml BID PRN PO 10/03/17 15:00 11/02/17 14:59 Hydralazine HCl (HydrALAZINE INJ) 10 mg Q6H PRN IV. 10/04/17 00:00 11/03/17 00:00 10/04/17 00:31 10 MG Pantoprazole Sodium (Protonix Tab) 40 mg BID PO 10/04/17 09:00 11/03/17 08:59 10/04/17 09:14 40 MG Vital Signs: Date Time Temp Pulse Resp B/P (MAP) Pulse Ox O2 Delivery O2 Flow Rate FiO2 10/04/17 11:46 36.4 79 18 164/89 (114) 85 Room Air 10/04/17 07:48 36.6 105 22 188/97 (127) 90 Nasal Cannula 2.0 10/04/17 06:55 92 20 94 Nasal Cannula 3.0 10/04/17 05:29 96 20 96 Nasal Cannula 3.0 10/04/17 04:00 Nasal Cannula 3.0 10/04/17 03:05 36.6 89 16 191/93 (125) 96 Nasal Cannula 3.0 182/88 (119) 10/04/17 00:47 94 18 95 Nasal Cannula 3.0 10/04/17 00:01 Nasal Cannula 3.0 10/03/17 23:35 36.8 83 20 209/109 (142) 96 Nasal Cannula 3.0 10/03/17 20:00 Nasal Cannula 3.0 10/03/17 19:25 93 16 96 Nasal Cannula 3.0 10/03/17 16:00 Room Air 10/03/17 15:35 36.5 81 18 189/97 (127) 95 Nasal Cannula 3.0 10/03/17 13:08 88 16 94 Nasal Cannula 3.0 Laboratory Results: Last 24 Hours Test 10/04/17 07:32 Sodium Level 142 mmol/L Potassium Level 3.5 mmol/L Chloride Level 107 mmol/L Carbon Dioxide Level 28 mmol/L Anion Gap 7.0 mmol/L Blood Urea Nitrogen 20 mg/dl Creatinine 1.22 mg/dl Est Creatinine Clear Calc Drug Dose 47.5 ml/min Estimated GFR () 64.0 Estimated GFR (Non- 55.3 BUN/Creatinine Ratio 16.7 Random Glucose 134 mg/dl Estimated Average Glucose 137 mg/dl Hemoglobin A1c 6.4 % Calcium Level 8.3 mg/dl
[2017-10-04 13:36] LABS: ALLEN TEST POS (POS); ARTERIAL BLD GAS O2 SATURATION 91.2 % (90-95); ARTERIAL BLOOD GAS BASE EXCESS 3.2 mEq/L (-9-1.8); ARTERIAL BLOOD GAS HCO3 29 mmol/L (19-24); ARTERIAL BLOOD GAS PO2 62 mm/Hg (80-95); O2 ADMINISTRATION 3L
--- NOTE | 2017-10-04 19:02 | Progress Note ---
Medicine Progress Note Date & Time of Visit: Oct 04, 2017 at 09:45 . Subjective Intermittent confusion. BP's fluctuating. No fever. Persistent cough productive of blood-tinged sputum. No chest pain. No nausea, vomiting, diarrhea. . Objective Last 8 Hrs Date Time Temp Pulse Resp B/P (MAP) Pulse Ox O2 Delivery O2 Flow Rate FiO2 10/04/17 16:00 Room Air 10/04/17 15:39 36.6 86 20 176/96 (122) 93 Nasal Cannula 3.0 10/04/17 13:32 94 20 95 Nasal Cannula 3.0 10/04/17 12:05 Room Air 10/04/17 11:46 36.4 79 18 164/89 (114) 85 Room Air Physical Exam: General- lno acute distress Lungs- scattered rhonchi, diffuse wheezing; no respiratory distress Heart- RRR, no gallop appreciated Abdomen- + BS, soft, nontender Extremities- 1+ pretibial edema LLE; trace pretibial edema RLE; no calf tenderness Skin- warm & dry Neuro- alert, mild confusion . Laboratory Results: Last 24 Hours Test 10/04/17 07:32 10/04/17 13:22 Sodium Level 142 mmol/L Potassium Level 3.5 mmol/L Chloride Level 107 mmol/L Carbon Dioxide Level 28 mmol/L Anion Gap 7.0 mmol/L Blood Urea Nitrogen 20 mg/dl Creatinine 1.22 mg/dl Est Creatinine Clear Calc Drug Dose 47.5 ml/min Estimated GFR () 64.0 Estimated GFR (Non- 55.3 BUN/Creatinine Ratio 16.7 Random Glucose 134 mg/dl Estimated Average Glucose 137 mg/dl Hemoglobin A1c 6.4 % Calcium Level 8.3 mg/dl Arterial Blood pH 7.40 Arterial Blood Partial Pressure CO2 47 mmHg Arterial Blood Partial Pressure O2 62 mm/Hg Arterial Blood HCO3 29 mmol/L Arterial Blood Oxygen Saturation 91.2 % Arterial Blood Base Excess 3.2 mEq/L Arterial Blood Gas Delivery 3L Michael Test POS Assessment & Plan PNEUMONIA Chest x-ray demonstrated bibasilar infiltrates. Sputum culture 10/02- upper airway contamination; repeat pending. Receiving doxycycline and ceftriaxone. May be best to broaden coverage. No quinolones due to prolonged QTc. Continue doxycycline for atypical coverage. Start vancomycin and piperacillin / tazobactam. EXACERBATION COPD Secondary to pneumonia. Continue prednisone and bronchodilators. CORONARY ARTERY DISEASE No anginal symptoms. Continue aspirin, metoprolol, statin. CHF History chronic left ventricular diastolic heart failure. Compensated. Holding furosemide due to elevated creatinine. Follow. HYPERTENSION Continue metoprolol and clonidine. GERD Patient describes reflux symptoms with water brash. Started ranitidine HS. CKD III / CARMELLA CKD III with baseline creatinine 1.2. Creatinine at time of admission 1.71. Holding furosemide. Creatinine today = 1.22. Follow. BPH Continue tamsulosin. HYPOTHYROIDISM Continue levothyroxine. HYPERGLYCEMIA Random glucose on admission 193. Receiving steroids. Hgb A1C = 6.4. FBS = 134. Follow. HISTORY MRSA Contact precautions. LEFT LOWER EXTREMITY EDEMA Chronic per patient and records. DELIRIUM Probably due to pneumonia. O2 sats and pCO2 OK. Receiving ipratropium in [facility]. No other anticholinergic meds. Follow. VTE PROPHYLAXIS Initially received SQ heparin, but stopped because of blood-tinged sputum. SCD's. Ambulate. DISPOSITION Expected discharge to home. Primary care follow-up with Dr. eKlly. Pulmonary follow-up with Fidencio Carmichael PA-C. . Current Inpatient Medications: Current Inpatient Medications Medications (Trade) Dose Ordered Sig/Luis Route Start Time Stop Time Status Last Admin Dose Admin Acetaminophen (Tylenol Tab) 650 mg Q4H PRN PO 10/01/17 17:30 10/31/17 17:29 Albuterol/ Ipratropium (Duoneb) 3 ml Q6R INH 10/01/17 21:00 10/31/17 20:59 10/04/17 13:32 3 ML Ceftriaxone Sodium 1 gm/ Dextrose 50 ml @ 100 mls/hr Q24H IV 10/02/17 09:00 10/09/17 08:59 10/04/17 09:13 100 MLS/HR Doxycycline Hyclate (Vibramycin Cap) 100 mg BID PO 10/02/17 09:00 10/09/17 08:59 10/04/17 09:14 100 MG Prednisone (PredniSONE TAB) 40 mg DAILY PO 10/02/17 09:00 10/06/17 09:01 10/04/17 09:14 40 MG Albuterol/ Ipratropium (Duoneb) 3 ml Q2H PRN INH 10/01/17 18:45 10/31/17 18:44 Allopurinol (Zyloprim Tab) 300 mg QAM PO 10/02/17 09:00 11/01/17 08:59 10/04/17 09:14 300 MG Aspirin (Ecotrin Tab) 81 mg HS PO 10/01/17 21:00 10/31/17 20:59 10/03/17 19:55 81 MG Salmeterol Xinafoate/ Fluticasone (Advair Diskus 500/50 Inh) 1 puff BID INH 10/01/17 21:00 10/31/17 20:59 10/04/17 09:13 1 PUFF Levothyroxine Sodium (Synthroid Tab) 50 mcg DAILYBB PO 10/02/17 06:00 11/01/17 05:59 10/04/17 05:17 50 MCG Metoprolol Tartrate (Lopressor Tab) 50 mg BID PO 10/01/17 21:00 10/31/17 20:59 10/04/17 09:14 50 MG Pravastatin Sodium (Pravachol Tab) 40 mg HS PO 10/01/17 21:00 10/31/17 20:59 10/03/17 19:54 40 MG Tamsulosin HCl (Flomax Cap) 0.4 mg PM PO 10/01/17 21:00 10/31/17 20:59 10/03/17 19:55 0.4 MG Clonidine HCl (Catapres Tab) 0.2 mg BID PO 10/01/17 21:00 10/31/17 20:59 10/04/17 09:13 0.2 MG Sodium Chloride 1,000 ml @ 80 mls/hr [id number] IV 10/01/17 19:30 10/31/17 19:29 10/04/17 10:22 80 MLS/HR Al Hydrox/Mg Hydrox/Simethicone (Maalox Max Susp) 15 ml Q6H PRN PO 10/02/17 19:30 11/01/17 19:29 Magnesium Hydroxide (Milk Of Magnesia Susp) 30 ml BID PRN PO 10/03/17 15:00 11/02/17 14:59 Hydralazine HCl (HydrALAZINE INJ) 10 mg Q6H PRN IV. 10/04/17 00:00 11/03/17 00:00 10/04/17 00:31 10 MG Pantoprazole Sodium (Protonix Tab) 40 mg BID PO 10/04/17 09:00 11/03/17 08:59 10/04/17 09:14 40 MG
[2017-10-04] MEDS ORDERED: LEVALBUTEROL 0.63MG/3 ML NEB INH PRN (19:15)
[2017-10-04] MEDS ORDERED: VANCOMYCIN INJ 0 MG in SODIUM CHLORIDE 0.9% 250ML 250 ML IV SCH (19:15)
[2017-10-04] MEDS ORDERED: PIPERACILL/TAZOBAC IV 3.375 GM in DEXTROSE 5% 100ML IV STA (19:19)
[2017-10-04] MEDS ORDERED: VANCOMYCIN INJ 2,000 MG in SODIUM CHLORIDE 0.9% 500ML 500 ML IV ONE (19:30)
[2017-10-04] MEDS ORDERED: PIPERACILL/TAZOBAC CONSULT ACTIVE PRN (19:30)
[2017-10-04] MEDS ORDERED: VANCOMYCIN CONSULT ACTIVE PRN (19:30)
[2017-10-04] MEDS: LEVALBUTEROL 1.25MG/0.5ML NEB INH SCH (19:48)
[2017-10-04] MEDS: ASPIRIN 81 MG ECTAB PO SCH (20:20)
[2017-10-04] MEDS: PRAVASTATIN SOD 40 MG TAB PO SCH (20:21)
[2017-10-04] MEDS: TAMSULOSIN HCL 0.4 MG CAP PO SCH (20:22)
--- NOTE | 2017-10-04 21:28 | Pharmacy Progress Note ---
Pharmacy Abx Dose Short Note Date of Service Oct 04, 2017. Assessment & Plan Pt is an 82yo M being treated for HAP. Previously on Rocephin/Doxy this admission. Now broadening coverage to Vanco/Zosyn/Doxy. He has a h/o of (+)MRSA nares. At this juncture he is afebrile. Renal fxn looks to be at baseline. Pt population p'kinetics: t1/2=16hrs, ke=0.0442, Vd=0.7. Sputum cx and MRSA nares are pending. Vanco: * Vanco 2000mg (26mg/kg) x1 to achieve a peak of about 36mcg/mL * Vanco 1250mg (16mg/kg) q18 set to start at 0800 10/05/17 * Goal trough for HAP 15-20mcg/mL * Trough ordered 10/07/17 @1330 prior to the 4th maintenance dose Zosyn: * Zosyn 3.375g 30 min infsn * then Zosyn 3.375g q8, appropriate for clinical status and eCrCl>20cc/min Pharmacy will continue to follow and will adjust dose/frequency as necessary. Thank you.
[2017-10-05] VITALS (11 sets, daily range): BP systolic 131–195; BP diastolic 62–91; PULSE 71–95; TEMP 36.2–36.8; O2SAT 90–96
[2017-10-05] MEDS ORDERED: PIPERACILL/TAZOBAC IV 4.5 GM in DEXTROSE 5% 100ML 100 ML IV SCH ×2
[2017-10-05] MEDS: PIPERACILL/TAZOBAC IV 3.375 GM in DEXTROSE 5% 100ML IV SCH ×3 (01:49→18:16)
[2017-10-05] MEDS: SODIUM CHLORIDE 0.9% 1000ML 1,000 ML IV SCH ×3 (01:50→23:38)
[2017-10-05] MEDS: HydrALAZINE HCL 20 MG/ML VIAL IV. PRN ×2 (04:35→20:00)
[2017-10-05] MEDS: LEVOTHYROXINE 50 MCG TAB PO SCH (05:53)
[2017-10-05] MEDS: LEVALBUTEROL 1.25MG/0.5ML NEB INH SCH ×4 (07:09→20:14)
[2017-10-05 07:12] LABS: BUN/CREATININE RATIO 15.3 (10-20); CALCIUM 8.6 mg/dl (8.5-10.1); CREATININE 1.33 mg/dl (0.60-1.40); POTASSIUM 3.8 mmol/L (3.5-5.1)
--- NOTE | 2017-10-05 07:34 | DIAGNOSTIC IMAGING REPORT ---
CHEST ONE VIEW PORTABLE HISTORY: 82 years-old Male assess for interval resolution of RLL PNA follow-up study to assess right middle lobe pneumonia COMPARISON: Chest radiographs 10/01/2017 TECHNIQUE: Portable AP view of the chest FINDINGS: Cardiac silhouette is upper limits of normal, unchanged. Atherosclerosis of the aorta. Emphysema. No pneumothorax. Trace effusions. There are persistent bibasilar alveolar opacities, right greater than left with improved aeration of the right lung base from comparison. Bones of the chest are grossly intact. IMPRESSION: 1. Improved aeration of the right lung base from comparison with persistent patchy bibasilar right greater than left alveolar opacities suggesting ongoing pneumonia. Continued follow-up recommended. 2. Emphysema. 3. Trace bilateral pleural effusions. The above report was generated using voice recognition software. It may contain grammatical, syntax or spelling errors. Electronically signed by: Bran Caraballo M.D. 10/05/2017 7:33 AM Dictated Date/Time: 10/05/2017 7:31 AM
[2017-10-05] MEDS: FLUTICASONE/SALMETEROL (ADVAIR) 500/50 INH 14 PUFF INH SCH ×2 (08:19→20:01)
[2017-10-05] MEDS: VANCOMYCIN INJ 1,250 MG in SODIUM CHLORIDE 0.9% 250ML 250 ML IV SCH (08:19)
[2017-10-05] MEDS: DOXYCYCLINE HYCLATE 100 MG CAP PO SCH ×2 (08:20→20:04)
[2017-10-05] MEDS: ALLOPURINOL 300 MG TAB PO SCH (08:20)
[2017-10-05] MEDS: CLONIDINE HCL 0.1 MG TAB PO SCH ×2 (08:20→20:03)
[2017-10-05] MEDS: PANTOprazole SOD 40 MG TAB PO SCH ×2 (08:21→20:03)
[2017-10-05] MEDS: METOPROLOL TARTRATE 50 MG TAB PO SCH ×2 (08:21→20:02)
--- NOTE | 2017-10-05 10:25 | Progress Note ---
Medicine Progress Note Date & Time of Visit: Oct 05, 2017 at 10:10 . Subjective No fever. Persistent cough and chest congestion. No significant hemoptysis since yesterday. Intermittent confusion. No chest pain. No nausea or vomiting. Moved bowels yesterday after receiving MOM. Voiding without difficulty. . Objective Last 8 Hrs Date Time Temp Pulse Resp B/P (MAP) Pulse Ox O2 Delivery O2 Flow Rate FiO2 10/05/17 07:54 36.6 95 24 153/75 (101) 95 Nasal Cannula 3.0 10/05/17 07:09 78 18 93 Nasal Cannula 3.0 10/05/17 04:00 90 Nasal Cannula 3.0 10/05/17 04:00 36.2 87 22 186/91 (122) 93 Nasal Cannula 2.0 Physical Exam: General- sitting in chair; no acute distress Lungs- scattered rhonchi, diffuse moderate wheezing; no respiratory distress Heart- RRR, no gallop appreciated Abdomen- + BS, soft, nontender Extremities- 1+ pretibial edema LLE; trace pretibial edema RLE; no calf tenderness Skin- warm & dry Neuro- alert, mild confusion (day Friday, 2017) . Laboratory Results: Last 24 Hours Test 10/04/17 13:22 10/05/17 05:48 Arterial Blood pH 7.40 Arterial Blood Partial Pressure CO2 47 mmHg Arterial Blood Partial Pressure O2 62 mm/Hg Arterial Blood HCO3 29 mmol/L Arterial Blood Oxygen Saturation 91.2 % Arterial Blood Base Excess 3.2 mEq/L Arterial Blood Gas Delivery 3L Michael Test POS Sodium Level 140 mmol/L Potassium Level 3.8 mmol/L Chloride Level 107 mmol/L Carbon Dioxide Level 28 mmol/L Anion Gap 5.0 mmol/L Blood Urea Nitrogen 20 mg/dl Creatinine 1.33 mg/dl Est Creatinine Clear Calc Drug Dose 40.3 ml/min Estimated GFR () 57.7 Estimated GFR (Non- 49.8 BUN/Creatinine Ratio 15.3 Random Glucose 93 mg/dl Calcium Level 8.6 mg/dl Date/Time Source Procedure Growth Status 10/04/17 20:30 Nasal MRSA DNA Surveillance Screen - Final Specimen Positive for MRSA by DNA Probe Complete Diagnostic Imaging: CHEST ONE VIEW PORTABLE FINDINGS: Cardiac silhouette is upper limits of normal, unchanged. Atherosclerosis of the aorta. Emphysema. No pneumothorax. Trace effusions. There are persistent bibasilar alveolar opacities, right greater than left with improved aeration of the right lung base from comparison. Bones of the chest are grossly intact. IMPRESSION: 1. Improved aeration of the right lung base from comparison with persistent patchy bibasilar right greater than left alveolar opacities suggesting ongoing pneumonia. Continued follow-up recommended. 2. Emphysema. 3. Trace bilateral pleural effusions. Electronically signed by: Bran Caraballo M.D. 10/05/2017 7:33 AM . Assessment & Plan PNEUMONIA Chest x-ray demonstrated bibasilar infiltrates. Sputum cultures 10/02 + 10/03 - upper airway contamination. Initially received doxycycline and ceftriaxone. Broadened coverage due to lack of clinical improvement. No quinolones due to prolonged QTc. Started vancomycin and piperacillin / tazobactam. Continue doxycycline for atypical coverage. EXACERBATION COPD Secondary to pneumonia. Continue prednisone and bronchodilators. CORONARY ARTERY DISEASE No anginal symptoms. Continue aspirin, metoprolol, statin. CHF History chronic left ventricular diastolic heart failure. Compensated. Holding furosemide due to elevated creatinine. No pulmonary edema on today's chest x-ray. Follow. HYPERTENSION Continue metoprolol. Taper clonidine due to delirium. GERD Patient describes reflux symptoms with water brash. Started on pantoprazole. CKD III / CARMELLA CKD III with baseline creatinine 1.2. Creatinine at time of admission 1.71. Holding furosemide. Creatinine today = 1.33. Follow. BPH Continue tamsulosin. HYPOTHYROIDISM Continue levothyroxine. HYPERGLYCEMIA Random glucose on admission 193. Receiving steroids. Hgb A1C = 6.4. FBS = 93. Follow. HISTORY MRSA Contact precautions. LEFT LOWER EXTREMITY EDEMA Chronic per patient and records. DELIRIUM Probably due to pneumonia. O2 sats OK on O2, and pCO2 only slightly elevated. Stopped ipratropium. Taper clonidine. Follow. VTE PROPHYLAXIS Initially received SQ heparin, but stopped because of blood-tinged sputum. SCD's. Ambulate. DISPOSITION To be determined. Primary care follow-up with Dr. Kelly. Pulmonary follow-up with Fidencio Carmichael PA-C. . Consultants: Pulmonary Medicine . Procedures: cardiac monitoring IV meds . Current Inpatient Medications: Current Inpatient Medications Medications (Trade) Dose Ordered Sig/Luis Route Start Time Stop Time Status Last Admin Dose Admin Acetaminophen (Tylenol Tab) 650 mg Q4H PRN PO 10/01/17 17:30 10/31/17 17:29 Doxycycline Hyclate (Vibramycin Cap) 100 mg BID PO 10/02/17 09:00 10/09/17 08:59 10/05/17 08:20 100 MG Prednisone (PredniSONE TAB) 40 mg DAILY PO 10/02/17 09:00 10/06/17 09:01 10/05/17 08:21 40 MG Allopurinol (Zyloprim Tab) 300 mg QAM PO 10/02/17 09:00 11/01/17 08:59 10/05/17 08:20 300 MG Aspirin (Ecotrin Tab) 81 mg HS PO 10/01/17 21:00 10/31/17 20:59 10/04/17 20:20 81 MG Salmeterol Xinafoate/ Fluticasone (Advair Diskus 500/50 Inh) 1 puff BID INH 10/01/17 21:00 10/31/17 20:59 10/05/17 08:19 1 PUFF Levothyroxine Sodium (Synthroid Tab) 50 mcg DAILYBB PO 10/02/17 06:00 11/01/17 05:59 10/05/17 05:53 50 MCG Metoprolol Tartrate (Lopressor Tab) 50 mg BID PO 10/01/17 21:00 10/31/17 20:59 10/05/17 08:21 50 MG Pravastatin Sodium (Pravachol Tab) 40 mg HS PO 10/01/17 21:00 10/31/17 20:59 10/04/17 20:21 40 MG Tamsulosin HCl (Flomax Cap) 0.4 mg PM PO 10/01/17 21:00 10/31/17 20:59 10/04/17 20:22 0.4 MG Clonidine HCl (Catapres Tab) 0.2 mg BID PO 10/01/17 21:00 10/31/17 20:59 10/05/17 08:20 0.2 MG Sodium Chloride 1,000 ml @ 80 mls/hr [id number] IV 10/01/17 19:30 10/31/17 19:29 10/05/17 01:50 80 MLS/HR Al Hydrox/Mg Hydrox/Simethicone (Maalox Max Susp) 15 ml Q6H PRN PO 10/02/17 19:30 11/01/17 19:29 Magnesium Hydroxide (Milk Of Magnesia Susp) 30 ml BID PRN PO 10/03/17 15:00 11/02/17 14:59 Hydralazine HCl (HydrALAZINE INJ) 10 mg Q6H PRN IV. 10/04/17 00:00 11/03/17 00:00 10/05/17 04:35 10 MG Pantoprazole Sodium (Protonix Tab) 40 mg BID PO 10/04/17 09:00 11/03/17 08:59 10/05/17 08:21 40 MG Levalbuterol (Xopenex 0.63 Mg/ 3 Ml Neb) 0.63 mg Q2H PRN INH 10/04/17 19:15 11/03/17 19:14 10/05/17 01:33 0.63 MG Levalbuterol (Xopenex 1.25MG/ 0.5ML Neb) 1.25 mg QIDR INH 10/04/17 20:00 11/03/17 19:59 10/05/17 07:09 1.25 MG Piperacillin Sod/ Tazobactam Sod 3.375 gm/Dextrose 115 ml @ 28.75 mls/ hr Q8H IV 10/05/17 02:00 10/12/17 01:59 10/05/17 01:49 28.75 MLS/HR Piperacillin Sod/ Tazobactam Sod (Consult) 1 ea UD PRN N/A 10/04/17 19:30 11/03/17 19:29 Vancomycin HCl (Consult) 1 ea UD PRN N/A 10/04/17 19:30 11/03/17 19:29 Vancomycin HCl 1250 mg/Sodium Chloride 275 ml @ 125 mls/hr Q18H IV 10/05/17 08:00 10/12/17 07:59 10/05/17 08:19 125 MLS/HR
--- NOTE | 2017-10-05 13:40 | Pulmonology Progress Note ---
Pulmonary Progress Note Date of Service Oct 05, 2017. Attending Dr. Mendez Subjective Patient seen and examined at bedside. He is out of bed to chair. Saturating 91% on room air. Per nursing staff, still having episodes of confusion. He still has persistent productive cough. No episodes of hemoptysis seen in the last 24 hours. He denies any chest pain. Objective Vital signs within the last 24 hours show MAXIMUM TEMPERATURE of 36.6, blood pressure 131/62-186/91, pulse 71-95, respiratory 16- 24, pulse oximetry 90-95 % on 0 to 3 L nasal cannula. Gen. awake alert oriented 2, no acute respiratory distress, speaking in full sentences with no use of accessory muscles of respiration. CVS: S1-S2, regular rate and rhythm Lungs: Good air entry bilaterally, crackles at right lung base, no wheezing, tachypneic. Abdomen obese: Nontender, nondistended bowel sounds positive Extremities: Left lower extremity edema +2, right lower extremity no edema, no cyanosis, no clubbing. Labs reviewed. Sodium 140, potassium 3.8, chloride 107, carbon dioxide 28, BUN 20, creatinine 1.33. Influenza A and B PCR negative. Urinary Legionella antigen pending. Mycoplasma pneumonia IgG and IgM pending. Sputum culture from 10/02/2017-contaminated Imaging reviewed and viewed. Chest x-ray 10/05/2017 IMPRESSION: 1. Improved aeration of the right lung base from comparison with persistent patchy bibasilar right greater than left alveolar opacities suggesting ongoing pneumonia. 2. Emphysema. 3. Trace bilateral pleural effusions Medications reviewed. Assessment & Plan Hypoxemia Right lower lobe pneumonia COPD Hypertension Diastolic dysfunction Patient appears to be improving from a respiratory standpoint. He still having productive cough. He is saturating well this morning 91-92% on room air. Chest x-ray shows improved aeration on right lower lung base. Patient's antibiotics broadened to vancomycin and Zosyn. Continue antibiotics to complete for 5-7 days. Continue with nebulizers every 4-6 hours standing and when necessary. Continue with Advair 500/50 inhaled 1 puff twice a day. Continue with prednisone 40 mg daily and taper. Continue with flutter valve and incentive spirometry. Continue to optimize BP per hospitalist team management. Recommend diuresis as kidney function improves Continue with DVT prophylaxis Continue with GI prophylaxis Continue with aspiration precautions as he does have previous history of aspiration in the past. Data Medications: Current Inpatient Medications Medications (Trade) Dose Ordered Sig/Luis Route Start Time Stop Time Status Last Admin Dose Admin Acetaminophen (Tylenol Tab) 650 mg Q4H PRN PO 10/01/17 17:30 10/31/17 17:29 Doxycycline Hyclate (Vibramycin Cap) 100 mg BID PO 10/02/17 09:00 10/09/17 08:59 10/05/17 08:20 100 MG Prednisone (PredniSONE TAB) 40 mg DAILY PO 10/02/17 09:00 10/06/17 09:01 10/05/17 08:21 40 MG Allopurinol (Zyloprim Tab) 300 mg QAM PO 10/02/17 09:00 11/01/17 08:59 10/05/17 08:20 300 MG Aspirin (Ecotrin Tab) 81 mg HS PO 10/01/17 21:00 10/31/17 20:59 10/04/17 20:20 81 MG Salmeterol Xinafoate/ Fluticasone (Advair Diskus 500/50 Inh) 1 puff BID INH 10/01/17 21:00 10/31/17 20:59 10/05/17 08:19 1 PUFF Levothyroxine Sodium (Synthroid Tab) 50 mcg DAILYBB PO 10/02/17 06:00 11/01/17 05:59 10/05/17 05:53 50 MCG Metoprolol Tartrate (Lopressor Tab) 50 mg BID PO 10/01/17 21:00 10/31/17 20:59 10/05/17 08:21 50 MG Pravastatin Sodium (Pravachol Tab) 40 mg HS PO 10/01/17 21:00 10/31/17 20:59 10/04/17 20:21 40 MG Tamsulosin HCl (Flomax Cap) 0.4 mg PM PO 10/01/17 21:00 10/31/17 20:59 10/04/17 20:22 0.4 MG Clonidine HCl (Catapres Tab) 0.2 mg BID PO 10/01/17 21:00 10/31/17 20:59 10/05/17 08:20 0.2 MG Sodium Chloride 1,000 ml @ 80 mls/hr [id number] IV 10/01/17 19:30 1/5/18 19:29 10/05/17 10:57 80 MLS/HR Al Hydrox/Mg Hydrox/Simethicone (Maalox Max Susp) 15 ml Q6H PRN PO 10/02/17 19:30 11/01/17 19:29 Magnesium Hydroxide (Milk Of Magnesia Susp) 30 ml BID PRN PO 10/03/17 15:00 11/02/17 14:59 Hydralazine HCl (HydrALAZINE INJ) 10 mg Q6H PRN IV. 10/04/17 00:00 11/03/17 00:00 10/05/17 04:35 10 MG Pantoprazole Sodium (Protonix Tab) 40 mg BID PO 10/04/17 09:00 11/03/17 08:59 10/05/17 08:21 40 MG Levalbuterol (Xopenex 0.63 Mg/ 3 Ml Neb) 0.63 mg Q2H PRN INH 10/04/17 19:15 11/03/17 19:14 10/05/17 01:33 0.63 MG Levalbuterol (Xopenex 1.25MG/ 0.5ML Neb) 1.25 mg QIDR INH 10/04/17 20:00 11/03/17 19:59 10/05/17 11:14 1.25 MG Piperacillin Sod/ Tazobactam Sod 3.375 gm/Dextrose 115 ml @ 28.75 mls/ hr Q8H IV 10/05/17 02:00 10/12/17 01:59 10/05/17 10:56 28.75 MLS/HR Piperacillin Sod/ Tazobactam Sod (Consult) 1 ea UD PRN N/A 10/04/17 19:30 11/03/17 19:29 Vancomycin HCl (Consult) 1 ea UD PRN N/A 10/04/17 19:30 11/03/17 19:29 Vancomycin HCl 1250 mg/Sodium Chloride 275 ml @ 125 mls/hr Q18H IV 10/05/17 08:00 10/12/17 07:59 10/05/17 08:19 125 MLS/HR Vital Signs: Date Time Temp Pulse Resp B/P (MAP) Pulse Ox O2 Delivery O2 Flow Rate FiO2 10/05/17 11:56 36.5 87 20 131/62 (85) 94 Nasal Cannula 3.0 10/05/17 11:15 71 16 95 Nasal Cannula 3.0 10/05/17 08:00 Nasal Cannula 3.0 10/05/17 07:54 36.6 95 24 153/75 (101) 95 Nasal Cannula 3.0 10/05/17 07:09 78 18 93 Nasal Cannula 3.0 10/05/17 04:00 90 Nasal Cannula 3.0 10/05/17 04:00 36.2 87 22 186/91 (122) 93 Nasal Cannula 2.0 10/05/17 01:34 85 16 95 Nasal Cannula 3.0 10/04/17 23:59 90 Nasal Cannula 3.0 10/04/17 23:32 36.8 79 18 164/82 (109) 93 Nasal Cannula 3.0 10/04/17 20:01 188/96 (126) 10/04/17 20:00 90 Nasal Cannula 3.0 10/04/17 20:00 36.7 100 24 192/95 (127) 90 Nasal Cannula 3.0 10/04/17 19:49 91 16 95 Nasal Cannula 3.0 10/04/17 16:00 Room Air 10/04/17 15:39 36.6 86 20 176/96 (122) 93 Nasal Cannula 3.0 10/04/17 13:32 94 20 95 Nasal Cannula 3.0 Laboratory Results: Last 24 Hours Test 10/05/17 05:48 Sodium Level 140 mmol/L Potassium Level 3.8 mmol/L Chloride Level 107 mmol/L Carbon Dioxide Level 28 mmol/L Anion Gap 5.0 mmol/L Blood Urea Nitrogen 20 mg/dl Creatinine 1.33 mg/dl Est Creatinine Clear Calc Drug Dose 40.3 ml/min Estimated GFR () 57.7 Estimated GFR (Non- 49.8 BUN/Creatinine Ratio 15.3 Random Glucose 93 mg/dl Calcium Level 8.6 mg/dl
[2017-10-05] MEDS: TAMSULOSIN HCL 0.4 MG CAP PO SCH (20:02)
[2017-10-05] MEDS: PRAVASTATIN SOD 40 MG TAB PO SCH (20:04)
[2017-10-05] MEDS: ASPIRIN 81 MG ECTAB PO SCH (20:05)
[2017-10-06] VITALS (14 sets, daily range): BP systolic 148–185; BP diastolic 78–98; PULSE 73–92; TEMP 36.1–36.8; O2SAT 92–99
[2017-10-06] MEDS: VANCOMYCIN INJ 1,250 MG in SODIUM CHLORIDE 0.9% 250ML 250 ML IV SCH ×2 (02:37→21:17)
[2017-10-06] MEDS: PIPERACILL/TAZOBAC IV 3.375 GM in DEXTROSE 5% 100ML IV SCH ×3 (02:37→17:20)
[2017-10-06] MEDS: HydrALAZINE HCL 20 MG/ML VIAL IV. PRN ×3 (03:23→22:38)
[2017-10-06] MEDS: LEVOTHYROXINE 50 MCG TAB PO SCH (06:26)
[2017-10-06 06:50] LABS: BUN/CREATININE RATIO 14.7 (10-20); CALCIUM 8.3 mg/dl (8.5-10.1); CREATININE 1.51 mg/dl (0.60-1.40); POTASSIUM 4.2 mmol/L (3.5-5.1)
[2017-10-06] MEDS: LEVALBUTEROL 1.25MG/0.5ML NEB INH SCH ×4 (07:07→18:59)
[2017-10-06] MEDS: FLUTICASONE/SALMETEROL (ADVAIR) 500/50 INH 14 PUFF INH SCH ×2 (08:21→21:19)
[2017-10-06] MEDS: PANTOprazole SOD 40 MG TAB PO SCH ×2 (08:21→21:18)
[2017-10-06] MEDS: ALLOPURINOL 300 MG TAB PO SCH (08:22)
[2017-10-06] MEDS: CLONIDINE HCL 0.1 MG TAB PO SCH ×2 (08:22→21:18)
[2017-10-06] MEDS: DOXYCYCLINE HYCLATE 100 MG CAP PO SCH ×2 (08:23→21:18)
[2017-10-06] MEDS: METOPROLOL TARTRATE 50 MG TAB PO SCH ×2 (08:23→21:17)
--- NOTE | 2017-10-06 12:05 | Pulmonology Progress Note ---
Pulmonary Progress Note Date of Service Oct 06, 2017. Attending Dr. Saul Subjective Patient is feeling slightly improved today. Continued mild sputum production which is benson in color. He does continue to have coughing and sneezing episodes. These have also decreased in frequency. He continues on broad spectrum abx. Repeat EKG showed NS with RBBB. Nasal swab MRSA + Labs reviewed: Creatinine 1.51 BUN 22 Urine legionella Ag, Mycoplasma pending. Objective General: Patient is awake, alert, cooperative, and in no acute distress. Well developed. Well-nourished. Head: Normocephalic, Atraumatic. ENT: PERRLA, No discharge, EOMI, Sclera normal Neck: Normal ROM. Trachea midline. No stridor Respiratory: Decreased breath sounds throughout. No respiratory distress. No accessory muscle use. Cardiovascular: Regular rate and rhythm. No murmur appreciate. Normal S1/S2. Abdomen: Nontender to palpation. Normal bowel sounds hear throughout. No guarding. Abdomen is soft and nontender Back: Normal inspection. Extremities: 1+ pitting edema of the B/L LE. Normal ROM Neuro: Alert. CN II-XII grossly intact. Sensation and motor function grossly intact. Psych: Mood and affect are normal. Assessment & Plan Hypoxemia Right lower lobe pneumonia COPD Hypertension Diastolic dysfunction Patient appears to be improving from a respiratory standpoint. He still having productive cough, but less sputum production. He is saturating well on 2-3 L via nasal cannula. Chest x-ray shows improved aeration on right lower lung base. Patient's antibiotics broadened to vancomycin and Zosyn. Continue antibiotics to complete for 5-7 days. Continue with nebulizers every 4-6 hours standing and when necessary. Continue with Advair 500/50 inhaled 1 puff twice a day. Continue with prednisone 40 mg daily and taper. Continue with flutter valve and incentive spirometry. Continue to optimize BP per hospitalist team management. Recommend diuresis as kidney function improves Continue with aspiration precautions as he does have previous history of aspiration in the past. No changes in current management from a Pulmonary perspective. Patient appears to be improving. Pulmonary will sign off and follow peripherally for changes. Please call with questions. Thank you Patient is seen and plan reviewed. Agree with above plan. Data Medications: Current Inpatient Medications Medications (Trade) Dose Ordered Sig/Luis Route Start Time Stop Time Status Last Admin Dose Admin Acetaminophen (Tylenol Tab) 650 mg Q4H PRN PO 10/01/17 17:30 10/31/17 17:29 Doxycycline Hyclate (Vibramycin Cap) 100 mg BID PO 10/02/17 09:00 10/09/17 08:59 10/06/17 08:23 100 MG Allopurinol (Zyloprim Tab) 300 mg QAM PO 10/02/17 09:00 11/01/17 08:59 10/06/17 08:22 300 MG Aspirin (Ecotrin Tab) 81 mg HS PO 10/01/17 21:00 10/31/17 20:59 10/05/17 20:05 81 MG Salmeterol Xinafoate/ Fluticasone (Advair Diskus 500/50 Inh) 1 puff BID INH 10/01/17 21:00 10/31/17 20:59 10/06/17 08:21 1 PUFF Levothyroxine Sodium (Synthroid Tab) 50 mcg DAILYBB PO 10/02/17 06:00 11/01/17 05:59 10/06/17 06:26 50 MCG Metoprolol Tartrate (Lopressor Tab) 50 mg BID PO 10/01/17 21:00 10/31/17 20:59 10/06/17 08:23 50 MG Pravastatin Sodium (Pravachol Tab) 40 mg HS PO 10/01/17 21:00 10/31/17 20:59 10/05/17 20:04 40 MG Tamsulosin HCl (Flomax Cap) 0.4 mg PM PO 10/01/17 21:00 10/31/17 20:59 10/05/17 20:02 0.4 MG Clonidine HCl (Catapres Tab) 0.2 mg BID PO 10/01/17 21:00 10/31/17 20:59 10/06/17 08:22 0.2 MG Sodium Chloride 1,000 ml @ 80 mls/hr [id number] IV 10/01/17 19:30 10/31/17 19:29 10/05/17 23:38 80 MLS/HR Al Hydrox/Mg Hydrox/Simethicone (Maalox Max Susp) 15 ml Q6H PRN PO 10/02/17 19:30 11/01/17 19:29 Magnesium Hydroxide (Milk Of Magnesia Susp) 30 ml BID PRN PO 10/03/17 15:00 11/02/17 14:59 Hydralazine HCl (HydrALAZINE INJ) 10 mg Q6H PRN IV. 10/04/17 00:00 11/03/17 00:00 10/06/17 03:23 10 MG Pantoprazole Sodium (Protonix Tab) 40 mg BID PO 10/04/17 09:00 11/03/17 08:59 10/06/17 08:21 40 MG Levalbuterol (Xopenex 0.63 Mg/ 3 Ml Neb) 0.63 mg Q2H PRN INH 10/04/17 19:15 11/03/17 19:14 10/05/17 01:33 0.63 MG Levalbuterol (Xopenex 1.25MG/ 0.5ML Neb) 1.25 mg QIDR INH 10/04/17 20:00 11/03/17 19:59 10/06/17 11:20 1.25 MG Piperacillin Sod/ Tazobactam Sod 3.375 gm/Dextrose 115 ml @ 28.75 mls/ hr Q8H IV 10/05/17 02:00 10/12/17 01:59 10/06/17 08:24 28.75 MLS/HR Piperacillin Sod/ Tazobactam Sod (Consult) 1 ea UD PRN N/A 10/04/17 19:30 11/03/17 19:29 Vancomycin HCl (Consult) 1 ea UD PRN N/A 10/04/17 19:30 11/03/17 19:29 Vancomycin HCl 1250 mg/Sodium Chloride 275 ml @ 125 mls/hr Q18H IV 10/05/17 08:00 10/12/17 07:59 10/06/17 02:37 125 MLS/HR Vital Signs: Date Time Temp Pulse Resp B/P (MAP) Pulse Ox O2 Delivery O2 Flow Rate FiO2 10/06/17 11:37 36.8 88 19 159/78 (105) 92 Nasal Cannula 3.0 10/06/17 11:20 73 16 97 Nasal Cannula 3.0 10/06/17 08:00 95 Nasal Cannula 2.0 10/06/17 07:24 36.1 79 18 164/81 (108) 95 Nasal Cannula 2.0 10/06/17 07:09 78 16 97 Nasal Cannula 3.0 10/06/17 04:00 Nasal Cannula 3.0 10/06/17 03:19 36.5 85 18 176/98 (124) 96 Nasal Cannula 3.0 10/06/17 00:01 36.7 78 18 148/81 (103) 97 Nasal Cannula 3.0 10/05/17 23:59 96 Nasal Cannula 3.0 10/05/17 20:16 89 16 96 Nasal Cannula 3.0 10/05/17 20:00 36.6 81 20 195/90 (125) 96 Nasal Cannula 3.0 10/05/17 20:00 96 Nasal Cannula 3.0 10/05/17 16:18 Nasal Cannula 3.0 10/05/17 15:39 36.8 82 22 159/89 (112) 94 Nasal Cannula 2.0 10/05/17 14:59 77 16 96 Nasal Cannula 3.0 10/05/17 12:00 Nasal Cannula 3.0 Laboratory Results: Last 24 Hours Test 10/06/17 05:40 Sodium Level 142 mmol/L Potassium Level 4.2 mmol/L Chloride Level 108 mmol/L Carbon Dioxide Level 29 mmol/L Anion Gap 5.0 mmol/L Blood Urea Nitrogen 22 mg/dl Creatinine 1.51 mg/dl Est Creatinine Clear Calc Drug Dose 38.4 ml/min Estimated GFR () 49.5 Estimated GFR (Non- 42.7 BUN/Creatinine Ratio 14.7 Random Glucose 104 mg/dl Calcium Level 8.3 mg/dl
[2017-10-06] MEDS: SODIUM CHLORIDE 0.9% 1000ML 1,000 ML IV SCH ×2 (12:38→23:32)
--- NOTE | 2017-10-06 20:19 | Progress Note ---
Medicine Progress Note Date & Time of Visit: Oct 06, 2017 at 16:40 . Subjective Cough improved. No further hemoptysis. Less SOB. No fever. No chest pain. No nausea, vomiting, diarrhea. Less confused. . Objective Last 8 Hrs Date Time Temp Pulse Resp B/P (MAP) Pulse Ox O2 Delivery O2 Flow Rate FiO2 10/06/17 18:59 87 16 96 Nasal Cannula 3.0 10/06/17 16:01 36.5 77 22 169/88 (115) 97 Nasal Cannula 2.0 10/06/17 16:00 Nasal Cannula 2.0 10/06/17 15:52 80 16 95 Nasal Cannula 3.0 Physical Exam: General- sitting in chair; no acute distress Lungs- few scattered rhonchi, diffuse mild-moderate wheezing; no respiratory distress Heart- RRR, no gallop appreciated Abdomen- + BS, soft, nontender Extremities- 1+ pretibial edema LLE; trace pretibial edema RLE; no calf tenderness Skin- warm & dry Neuro- alert, less confused . Laboratory Results: Last 24 Hours Test 10/06/17 05:40 Sodium Level 142 mmol/L Potassium Level 4.2 mmol/L Chloride Level 108 mmol/L Carbon Dioxide Level 29 mmol/L Anion Gap 5.0 mmol/L Blood Urea Nitrogen 22 mg/dl Creatinine 1.51 mg/dl Est Creatinine Clear Calc Drug Dose 38.4 ml/min Estimated GFR () 49.5 Estimated GFR (Non- 42.7 BUN/Creatinine Ratio 14.7 Random Glucose 104 mg/dl Calcium Level 8.3 mg/dl Assessment & Plan PNEUMONIA Chest x-ray demonstrated bibasilar infiltrates. Sputum cultures 10/02 + 10/03 - upper airway contamination. Initially received doxycycline and ceftriaxone. Broadened coverage due to lack of clinical improvement. No quinolones due to prolonged QTc. Changed IV antibiotic therapy to vancomycin and piperacillin / tazobactam. Continue doxycycline for atypical coverage. EXACERBATION COPD Secondary to pneumonia. Continue prednisone and bronchodilators. Taper prednisone as able. CORONARY ARTERY DISEASE No anginal symptoms. Continue aspirin, metoprolol, statin. CHF History chronic left ventricular diastolic heart failure. Compensated. Holding furosemide due to elevated creatinine. Follow. HYPERTENSION Continue metoprolol. GERD Patient describes reflux symptoms with water brash. Started on pantoprazole. CKD III / CARMELLA CKD III with baseline creatinine 1.2. Creatinine at time of admission 1.71. Holding furosemide. Creatinine today = 1.351 Follow. BPH Continue tamsulosin. HYPOTHYROIDISM Continue levothyroxine. HYPERGLYCEMIA Random glucose on admission 193. Receiving steroids. Hgb A1C = 6.4. FBS = 104. Follow. HISTORY MRSA Contact precautions. LEFT LOWER EXTREMITY EDEMA Chronic per patient and records. DELIRIUM Probably due to pneumonia. O2 sats OK on O2, and pCO2 only slightly elevated. Stopped ipratropium. Improved. GENERAL DEBILITATION PT / OT. VTE PROPHYLAXIS Initially received SQ heparin, but stopped because of blood-tinged sputum. SCD's. Ambulate. DISPOSITION To be determined. May need skilled care or rehab. Primary care follow-up with Dr. Kelly. Pulmonary follow-up with Fidencio Carmichael PA-C. . Consultants: Pulmonary Medicine . Procedures: cardiac monitoring IV meds . Current Inpatient Medications: Current Inpatient Medications Medications (Trade) Dose Ordered Sig/Luis Route Start Time Stop Time Status Last Admin Dose Admin Acetaminophen (Tylenol Tab) 650 mg Q4H PRN PO 10/01/17 17:30 10/31/17 17:29 Doxycycline Hyclate (Vibramycin Cap) 100 mg BID PO 10/02/17 09:00 10/09/17 08:59 10/06/17 08:23 100 MG Allopurinol (Zyloprim Tab) 300 mg QAM PO 10/02/17 09:00 11/01/17 08:59 10/06/17 08:22 300 MG Aspirin (Ecotrin Tab) 81 mg HS PO 10/01/17 21:00 10/31/17 20:59 10/05/17 20:05 81 MG Salmeterol Xinafoate/ Fluticasone (Advair Diskus 500/50 Inh) 1 puff BID INH 10/01/17 21:00 10/31/17 20:59 10/06/17 08:21 1 PUFF Levothyroxine Sodium (Synthroid Tab) 50 mcg DAILYBB PO 10/02/17 06:00 11/01/17 05:59 10/06/17 06:26 50 MCG Metoprolol Tartrate (Lopressor Tab) 50 mg BID PO 10/01/17 21:00 10/31/17 20:59 10/06/17 08:23 50 MG Pravastatin Sodium (Pravachol Tab) 40 mg HS PO 10/01/17 21:00 10/31/17 20:59 10/05/17 20:04 40 MG Tamsulosin HCl (Flomax Cap) 0.4 mg PM PO 10/01/17 21:00 10/31/17 20:59 10/05/17 20:02 0.4 MG Clonidine HCl (Catapres Tab) 0.2 mg BID PO 10/01/17 21:00 10/31/17 20:59 10/06/17 08:22 0.2 MG Sodium Chloride 1,000 ml @ 80 mls/hr [id number] IV 10/01/17 19:30 10/31/17 19:29 10/06/17 12:38 80 MLS/HR Al Hydrox/Mg Hydrox/Simethicone (Maalox Max Susp) 15 ml Q6H PRN PO 10/02/17 19:30 11/01/17 19:29 Magnesium Hydroxide (Milk Of Magnesia Susp) 30 ml BID PRN PO 10/03/17 15:00 11/02/17 14:59 Hydralazine HCl (HydrALAZINE INJ) 10 mg Q6H PRN IV. 10/04/17 00:00 11/03/17 00:00 10/06/17 17:15 10 MG Pantoprazole Sodium (Protonix Tab) 40 mg BID PO 10/04/17 09:00 11/03/17 08:59 10/06/17 08:21 40 MG Levalbuterol (Xopenex 0.63 Mg/ 3 Ml Neb) 0.63 mg Q2H PRN INH 10/04/17 19:15 11/03/17 19:14 10/05/17 01:33 0.63 MG Levalbuterol (Xopenex 1.25MG/ 0.5ML Neb) 1.25 mg QIDR INH 10/04/17 20:00 11/03/17 19:59 10/06/17 18:59 1.25 MG Piperacillin Sod/ Tazobactam Sod 3.375 gm/Dextrose 115 ml @ 28.75 mls/ hr Q8H IV 10/05/17 02:00 10/12/17 01:59 10/06/17 17:20 28.75 MLS/HR Piperacillin Sod/ Tazobactam Sod (Consult) 1 ea UD PRN N/A 10/04/17 19:30 11/03/17 19:29 Vancomycin HCl (Consult) 1 ea UD PRN N/A 10/04/17 19:30 11/03/17 19:29 Vancomycin HCl 1250 mg/Sodium Chloride 275 ml @ 125 mls/hr Q18H IV 10/05/17 08:00 10/12/17 07:59 10/06/17 02:37 125 MLS/HR
[2017-10-06] MEDS: ASPIRIN 81 MG ECTAB PO SCH (21:17)
[2017-10-06] MEDS: TAMSULOSIN HCL 0.4 MG CAP PO SCH (21:17)
[2017-10-06] MEDS: PRAVASTATIN SOD 40 MG TAB PO SCH (21:18)
[2017-10-07] VITALS (12 sets, daily range): BP systolic 149–178; BP diastolic 74–88; PULSE 68–94; TEMP 36.4–36.7; O2SAT 95–97
[2017-10-07] MEDS: PIPERACILL/TAZOBAC IV 3.375 GM in DEXTROSE 5% 100ML IV SCH ×3 (02:06→17:46)
[2017-10-07] MEDS: LEVOTHYROXINE 50 MCG TAB PO SCH (06:13)
[2017-10-07] MEDS: LEVALBUTEROL 1.25MG/0.5ML NEB INH SCH ×4 (08:00→18:46)
[2017-10-07] MEDS ORDERED: POLYETHYLENE (MIRALAX) 17 GM PACK PO PRN (08:45)
--- NOTE | 2017-10-07 08:59 | Progress Note ---
Medicine Progress Note Date & Time of Visit: Oct 07, 2017 at 08:39. Subjective 82 yoM with COPD on chronic oxygen at 3L presented as a transfer from [facility] for worsening hypoxia 2/2 COPD exacerbation from RLL pneumonia. Pt reports feeling that his breathing is improved compared to admission. Denies coughing, fevers or chills today. Tolerating PO. Reports feeling weak and unable to ambulate well because of deconditioning. Objective Last 8 Hrs Date Time Temp Pulse Resp B/P (MAP) Pulse Ox O2 Delivery O2 Flow Rate FiO2 10/07/17 07:37 36.4 75 19 178/86 (116) 97 Nasal Cannula 3.0 10/07/17 07:10 76 16 97 Nasal Cannula 3.0 10/07/17 04:00 Nasal Cannula 3.0 10/07/17 03:34 36.7 71 22 149/74 (99) 96 Nasal Cannula 3.0 Physical Exam: GEN: WNWD, in no acute distress, alert and appropriate, O2 in place, no conversational dyspnea. HEENT: NC/AT, PERRL, normal sclerae, MMM. Whitish oral coating all over tongue noted, partial dentures in place CARDIO: reg rate, S1/2 heard without m/g/r LUNGS: CTA bilaterally, breath sounds are generally diminished, no crackles, rales or wheezes, good diaphragmatic excursion. ABD: soft, non-tender, non-distended, no rebound or guarding EXTREMITY: warm and well-perfused, 2+LE edema on LLE, trace edema on RLE, RP 2+ , onychomycosis of fingernails-difficult to assess cap refill as a result. NEURO: CN 2-12 grossly intact, no gross focal deficits. MUSC: 5/5 strength throughout, no gross focal deficits SKIN: warm and dry Laboratory Results: 10/02/17 06:10 10/06/17 05:40 Test 10/01/17 18:02 10/02/17 06:10 10/02/17 15:54 10/04/17 07:32 Immature Granulocyte % (Auto) 0.3 % White Blood Count 9.44 K/uL (4.8-10.8) Red Blood Count 4.18 M/uL (4.7-6.1) 3.65 M/uL (4.7-6.1) Hemoglobin 12.9 g/dL (14.0-18.0) Hematocrit 39.3 % (42-52) Mean Corpuscular Volume 94.0 fL (80-100) 93.7 fL (80-100) Mean Corpuscular Hemoglobin 30.9 pg (25-34) 29.9 pg (25-34) Mean Corpuscular Hemoglobin Concent 32.8 g/dl (32-36) 31.9 g/dl (32-36) Platelet Count 145 K/uL (130-400) Mean Platelet Volume 9.3 fL (7.4-10.4) 9.9 fL (7.4-10.4) Neutrophils (%) (Auto) 92.0 % Lymphocytes (%) (Auto) 3.4 % Monocytes (%) (Auto) 4.1 % Eosinophils (%) (Auto) 0.1 % Basophils (%) (Auto) 0.1 % Neutrophils # (Auto) 8.68 K/uL (1.4-6.5) Lymphocytes # (Auto) 0.32 K/uL (1.2-3.4) Monocytes # (Auto) 0.39 K/uL (0.11-0.59) Eosinophils # (Auto) 0.01 K/uL (0-0.5) Basophils # (Auto) 0.01 K/uL (0-0.2) Immature Granulocyte # (Auto) 0.03 K/uL (0.00-0.02) Red Blood Cell Morphology Unremarkable Prothrombin Time 10.2 SECONDS (9.0-12.0) Prothromb Time International Ratio 1.0 (0.9-1.1) Activated Partial Thromboplast Time 28.2 SECONDS (21.0-31.0) Partial Thromboplastin Ratio 1.1 Lactic Acid Level 1.5 mmol/L (0.4-2.0) Phosphorus Level 2.6 mg/dl (2.5-4.9) Magnesium Level 2.3 mg/dl (1.8-2.4) Total Bilirubin 0.5 mg/dl (0.2-1) Aspartate Amino Transf (AST/SGOT) 14 U/L (15-37) Alanine Aminotransferase (ALT/SGPT) 12 U/L (12-78) Alkaline Phosphatase 29 U/L (45-117) Total Protein 6.0 gm/dl (6.4-8.2) Albumin 3.0 gm/dl (3.4-5.0) Globulin 3.0 gm/dl (2.5-4.0) Albumin/Globulin Ratio 1.0 (0.9-2) RDW Standard Deviation 49.0 fL (36.4-46.3) RDW Coefficient of Variation 14.3 % (11.5-14.5) Estimated Average Glucose 137 mg/dl Hemoglobin A1c 6.4 % (4.5-5.6) Test 10/04/17 13:22 10/06/17 05:40 10/07/17 08:34 Arterial Blood pH 7.40 (7.35-7.45) Arterial Blood Partial Pressure CO2 47 mmHg (35-46) Arterial Blood Partial Pressure O2 62 mm/Hg (80-95) Arterial Blood HCO3 29 mmol/L (19-24) Arterial Blood Oxygen Saturation 91.2 % (90-95) Arterial Blood Base Excess 3.2 mEq/L (-9-1.8) Arterial Blood Gas Delivery 3L Michael Test POS (POS) Anion Gap 5.0 mmol/L (3-11) Est Creatinine Clear Calc Drug Dose 38.4 ml/min Estimated GFR () 49.5 Estimated GFR (Non- 42.7 BUN/Creatinine Ratio 14.7 (10-20) Calcium Level 8.3 mg/dl (8.5-10.1) Date/Time Source Procedure Growth Status 10/04/17 20:30 Nasal MRSA DNA Surveillance Screen - Final Specimen Positive for MRSA by DNA Probe Complete 10/03/17 14:02 Sputum Expectorated Sputum Gram Stain - Final Complete 10/03/17 14:02 Sputum Expectorated Sputum Sputum Culture - Final Complete Assessment & Plan 82 yoM with COPD on chronic oxygen at 3L presented as a transfer from [facility] for worsening hypoxia 2/2 COPD exacerbation from RLL pneumonia. 1. CAP-Most recent CXR reveals persistent pneumonia with bibasilar infiltrates. Pt reports feeling that his breathing is improved compared to admission. Denies coughing, fevers or chills today. Sputum cultures were contaminated with epis. Initially received doxy and ceftriaxone which was broadened 2/2 lack of clinical improvement. Now on Vanc, Zosyn and Doxy. No quinolones 2/2 prolonged QTc. Deconditioning noted from this hospitalization and patient lives alone. PT/OT to assess today. 2. COPD exacerbation-2/2 pneumonia. Cont prednisone, bronchodilators, flutter valve. Pulm following and recommended prednisone taper. 3. CAD-pt denies chest pain. Cont med management with ASA, Metoprolol and Pravastatin. 4. Chronic left ventricular diastolic heart failure-compensated. Pt has had 5 days of IVF which were stopped today. His weight is up and he is currently tolerating PO. He is on furosemide as outpatient which was being held 2/2 increased creatinine. Will recheck PRP in am off IVF and Lasix. Of note, has chronic left lower extremity edema. 5. CKD III-initially admitted with creat 1.7 (CARMELLA-baseline 1.2). IVF were started and Lasix was held. Creat was 1.5 yesterday. IVF stopped this morning. Repeat PRP in am. 6. HTN-uncontrolled on clonidine and metoprolol. Lisinopril held in setting of elevated creatinine. Will reassess this morning after am meds given. 7. Thrush-poss 2/2 steroid use. Nystatin oral rinse ordered for 7 days. 8. GERD-started on Protonix this admission for heartburn symptoms. 9. BPH-tamsulosin 10. Hypothyroidism-cont Synthroid at current dose. Full code-no Mech Ventilation DVT proph-heparin Dispo-may need SNF or rehab. [facility] Consultants: Pulmonary Medicine . Current Inpatient Medications: Current Inpatient Medications Medications (Trade) Dose Ordered Sig/Luis Route Start Time Stop Time Status Last Admin Dose Admin Acetaminophen (Tylenol Tab) 650 mg Q4H PRN PO 10/01/17 17:30 10/31/17 17:29 Doxycycline Hyclate (Vibramycin Cap) 100 mg BID PO 10/02/17 09:00 10/09/17 08:59 10/06/17 21:18 100 MG Allopurinol (Zyloprim Tab) 300 mg QAM PO 10/02/17 09:00 11/01/17 08:59 10/06/17 08:22 300 MG Aspirin (Ecotrin Tab) 81 mg HS PO 10/01/17 21:00 10/31/17 20:59 10/06/17 21:17 81 MG Salmeterol Xinafoate/ Fluticasone (Advair Diskus 500/50 Inh) 1 puff BID INH 10/01/17 21:00 10/31/17 20:59 10/06/17 21:19 1 PUFF Levothyroxine Sodium (Synthroid Tab) 50 mcg DAILYBB PO 10/02/17 06:00 11/01/17 05:59 10/07/17 06:13 50 MCG Metoprolol Tartrate (Lopressor Tab) 50 mg BID PO 10/01/17 21:00 10/31/17 20:59 10/06/17 21:17 50 MG Pravastatin Sodium (Pravachol Tab) 40 mg HS PO 10/01/17 21:00 10/31/17 20:59 10/06/17 21:18 40 MG Tamsulosin HCl (Flomax Cap) 0.4 mg PM PO 10/01/17 21:00 10/31/17 20:59 10/06/17 21:17 0.4 MG Clonidine HCl (Catapres Tab) 0.2 mg BID PO 10/01/17 21:00 10/31/17 20:59 10/06/17 21:18 0.2 MG Al Hydrox/Mg Hydrox/Simethicone (Maalox Max Susp) 15 ml Q6H PRN PO 10/02/17 19:30 11/01/17 19:29 Magnesium Hydroxide (Milk Of Magnesia Susp) 30 ml BID PRN PO 10/03/17 15:00 11/02/17 14:59 Hydralazine HCl (HydrALAZINE INJ) 10 mg Q6H PRN IV. 10/04/17 00:00 11/03/17 00:00 10/06/17 22:38 10 MG Pantoprazole Sodium (Protonix Tab) 40 mg BID PO 10/04/17 09:00 11/03/17 08:59 10/06/17 21:18 40 MG Levalbuterol (Xopenex 0.63 Mg/ 3 Ml Neb) 0.63 mg Q2H PRN INH 10/04/17 19:15 11/03/17 19:14 10/05/17 01:33 0.63 MG Levalbuterol (Xopenex 1.25MG/ 0.5ML Neb) 1.25 mg QIDR INH 10/04/17 20:00 11/03/17 19:59 12/12/17 08:00 1.25 MG Piperacillin Sod/ Tazobactam Sod 3.375 gm/Dextrose 115 ml @ 28.75 mls/ hr Q8H IV 10/05/17 02:00 10/12/17 01:59 10/07/17 02:06 28.75 MLS/HR Piperacillin Sod/ Tazobactam Sod (Consult) 1 ea UD PRN N/A 10/04/17 19:30 11/03/17 19:29 Vancomycin HCl (Consult) 1 ea UD PRN N/A 10/04/17 19:30 11/03/17 19:29 Vancomycin HCl 1250 mg/Sodium Chloride 275 ml @ 125 mls/hr Q18H IV 10/05/17 08:00 10/12/17 07:59 10/06/17 21:17 125 MLS/HR Prednisone (PredniSONE TAB) 40 mg DAILY PO 10/07/17 09:00 11/06/17 08:59
[2017-10-07] MEDS: METOPROLOL TARTRATE 50 MG TAB PO SCH ×2 (09:00→20:30)
[2017-10-07] MEDS: FLUTICASONE/SALMETEROL (ADVAIR) 500/50 INH 14 PUFF INH SCH ×2 (09:29→20:31)
[2017-10-07] MEDS: CLONIDINE HCL 0.1 MG TAB PO SCH ×2 (09:30→20:30)
[2017-10-07] MEDS: NYSTATIN SUSP 500,000 U/5 ML UDC PO SCH ×4 (09:30→20:32)
[2017-10-07] MEDS: ALLOPURINOL 300 MG TAB PO SCH (09:31)
[2017-10-07] MEDS: PANTOprazole SOD 40 MG TAB PO SCH ×2 (09:31→20:32)
[2017-10-07] MEDS: DOXYCYCLINE HYCLATE 100 MG CAP PO SCH ×2 (09:31→20:32)
[2017-10-07 11:18] LABS: INFLUENZA A PCR Neg for Influ A (NEG); INFLUENZA B PCR Neg for Influ B (NEG)
[2017-10-07 12:30] LABS: LEGIONELLA ANTIGEN NOT DETECTED (NOT DETECTED)
[2017-10-07] MEDS ORDERED: VANCOMYCIN TROUGH ONE (13:30)
[2017-10-07 14:27] LABS: BUN/CREATININE RATIO 14.8 (10-20); CALCIUM 8.2 mg/dl (8.5-10.1); CREATININE 1.55 mg/dl (0.60-1.40); POTASSIUM 4.3 mmol/L (3.5-5.1)
[2017-10-07] MEDS: HEPARIN SOD 5000 UNIT/0.5 ML CARP SQ SCH ×2 (14:44→21:52)
[2017-10-07] MEDS: VANCOMYCIN INJ 1,250 MG in SODIUM CHLORIDE 0.9% 250ML 250 ML IV SCH (14:45)
--- NOTE | 2017-10-07 15:23 | Pharmacy Progress Note ---
Pharmacy Antibiotic Prog Note Date of Service Oct 07, 2017. Subjective The patient is currently receiving vancomycin 1250 mg IV every 18 hours. The patient is currently on day # 4 of vancomycin IV therapy. Objective Height (Feet): 5 Height (Inches): 9.00 Weight (Kilograms): 81.100 Lab Results (24hrs): Test 10/07/17 00:00 10/07/17 13:22 Influenza Type A (RT-PCR) Neg for Influ A (NEG) Influenza Type B (RT-PCR) Neg for Influ B (NEG) Sodium Level 139 mmol/L (136-145) Potassium Level 4.3 mmol/L (3.5-5.1) Chloride Level 108 mmol/L (98-107) Carbon Dioxide Level 25 mmol/L (21-32) Anion Gap 6.0 mmol/L (3-11) Blood Urea Nitrogen 23 mg/dl (7-18) Creatinine 1.55 mg/dl (0.60-1.40) Est Creatinine Clear Calc Drug Dose 37.4 ml/min Estimated GFR () 47.9 Estimated GFR (Non- 41.4 BUN/Creatinine Ratio 14.8 (10-20) Random Glucose 150 mg/dl (70-99) Calcium Level 8.2 mg/dl (8.5-10.1) Vancomycin Level Trough 15.3 mcg/ml (SEE COMMENT) Assessment & Plan Assessment * 82 yo M transferred from [facility] on 10/01 with COPD exacerbation 2nd PNA * Was on ceftriaxone/doxycycline but was broadened to Zosyn, vancomycin, doxycycline 10/04 2nd lack of clinical improvement * Hx MRSA PNA. Positive MRSA nasal swab. * Breathing improved as compared to admission per prog note today * Afebrile * Renal function impaired, although SCr stable and close to baseline Vancomycin * Goal trough 15-20 mcg/mL for possible MRSA PNA * Trough of 15.3 mcg/mL is therapeutic. * Will continue current dose * Since combo of Zosyn and vancomycin can cause nephrotoxicity, will order repeat trough in 48 hours Plan * Continue vancomycin 1250 mg IV q18h * Trough 10/09 @ 1930 Pharmacy will continue to follow and will adjust dose/frequency as necessary. Thank you
[2017-10-07] MEDS: HydrALAZINE HCL 20 MG/ML VIAL IV. PRN (18:48)
[2017-10-07] MEDS: PRAVASTATIN SOD 40 MG TAB PO SCH (20:31)
[2017-10-07] MEDS: ASPIRIN 81 MG ECTAB PO SCH (20:31)
[2017-10-07] MEDS: TAMSULOSIN HCL 0.4 MG CAP PO SCH (20:31)
[2017-10-08] VITALS (12 sets, daily range): BP systolic 165–182; BP diastolic 78–94; PULSE 75–83; TEMP 36.3–36.6; O2SAT 82–98
[2017-10-08] MEDS: PIPERACILL/TAZOBAC IV 3.375 GM in DEXTROSE 5% 100ML IV SCH ×2 (02:38→10:09)
[2017-10-08] MEDS: HydrALAZINE HCL 20 MG/ML VIAL IV. PRN (04:32)
[2017-10-08] MEDS: HEPARIN SOD 5000 UNIT/0.5 ML CARP SQ SCH ×3 (06:14→20:54)
[2017-10-08] MEDS: LEVOTHYROXINE 50 MCG TAB PO SCH (06:15)
[2017-10-08 06:27] LABS: BASO % 0.1 %; BASO ABS # 0.01 K/uL (0-0.2); COMPLETE YES; EOS % 2.6 %; HEMATOCRIT 39.5 % (42-52); IG% 2.3 %; LYMPH % 10.6 %; LYMPH ABS # 1.04 K/uL (1.2-3.4); MEAN CELL VOLUME 92.5 fL (80-100); MEAN CORPUSCULAR HEMOGLOBIN 31.1 pg (25-34); MEAN CORPUSCULAR HGB CONC 33.7 g/dl (32-36); MEAN PLATELET VOLUME 10.4 fL (7.4-10.4); MONO % 7.7 %; NEUT % 76.7 %; PLATELET COUNT 145 K/uL (130-400); RED BLOOD COUNT 4.27 M/uL (4.7-6.1)
[2017-10-08 06:57] LABS: BUN/CREATININE RATIO 16.9 (10-20); CALCIUM 8.3 mg/dl (8.5-10.1); CREATININE 1.3 mg/dl (0.60-1.40); POTASSIUM 3.9 mmol/L (3.5-5.1)
[2017-10-08] MEDS: LEVALBUTEROL 1.25MG/0.5ML NEB INH SCH ×4 (07:09→19:16)
[2017-10-08] MEDS: VANCOMYCIN INJ 1,250 MG in SODIUM CHLORIDE 0.9% 250ML 250 ML IV SCH (07:38)
[2017-10-08] MEDS: FLUTICASONE/SALMETEROL (ADVAIR) 500/50 INH 14 PUFF INH SCH ×2 (07:48→20:45)
[2017-10-08] MEDS: CLONIDINE HCL 0.1 MG TAB PO SCH ×2 (07:48→20:47)
[2017-10-08] MEDS: NYSTATIN SUSP 500,000 U/5 ML UDC PO SCH ×4 (07:49→20:50)
[2017-10-08] MEDS: DOXYCYCLINE HYCLATE 100 MG CAP PO SCH ×2 (07:49→20:50)
[2017-10-08] MEDS: PANTOprazole SOD 40 MG TAB PO SCH ×2 (07:49→20:50)
[2017-10-08] MEDS: METOPROLOL TARTRATE 50 MG TAB PO SCH ×2 (07:49→20:48)
[2017-10-08] MEDS: ALLOPURINOL 300 MG TAB PO SCH (07:50)
[2017-10-08] MEDS ORDERED: LISINOPRIL 5 MG TAB PO SCH (09:00)
[2017-10-08] MEDS: AMOXICILLIN 500 MG CAP PO SCH ×2 (17:15→20:46)
[2017-10-08] MEDS: FUROSEMIDE 20 MG TAB PO SCH (17:16)
--- NOTE | 2017-10-08 20:35 | Progress Note ---
Medicine Progress Note Date & Time of Visit: Oct 08, 2017 at 13:31. Subjective 82 yoM with COPD on chronic oxygen at 3L presented as a transfer from [facility] for worsening hypoxia 2/2 COPD exacerbation from RLL pneumonia. Denies any chest pain, worsening SOB, fevers, chills. Tolerating PO. Objective Last 8 Hrs Date Time Temp Pulse Resp B/P (MAP) Pulse Ox O2 Delivery O2 Flow Rate FiO2 10/08/17 11:23 77 16 97 Nasal Cannula 3.0 10/08/17 10:40 36.3 75 20 165/83 (110) 96 Nasal Cannula 3.0 10/08/17 08:45 Nasal Cannula 3.0 10/08/17 07:46 36.6 83 20 170/94 (119) 95 Nasal Cannula 3.0 10/08/17 07:10 83 16 95 Nasal Cannula 3.0 Physical Exam: GEN: WNWD, in no acute distress, alert and appropriate, O2 in place, no conversational dyspnea. HEENT: NC/AT, PERRL, normal sclerae, MMM. CARDIO: reg rate, S1/2 heard without m/g/r LUNGS: CTA bilaterally, no crackles, rales or wheezes, good diaphragmatic excursion. ABD: soft, non-tender, non-distended, no rebound or guarding EXTREMITY: warm and well-perfused, 2+LE edema on LLE, trace edema on RLE, RP 2+ , onychomycosis of fingernails-difficult to assess cap refill as a result. NEURO: CN 2-12 grossly intact, no gross focal deficits. MUSC: 5/5 strength throughout, no gross focal deficits SKIN: warm and dry Laboratory Results: 10/08/17 05:35 Red Blood Count 4.27, Mean Corpuscular Volume 92.5, Mean Corpuscular Hemoglobin 31.1, Mean Corpuscular Hemoglobin Concent 33.7, Mean Platelet Volume 10.4, Neutrophils (%) (Auto) 76.7, Lymphocytes (%) (Auto) 10.6, Monocytes (%) (Auto) 7.7, Eosinophils (%) (Auto) 2.6, Basophils (%) (Auto) 0.1, Neutrophils # (Auto) 7.52, Lymphocytes # (Auto) 1.04, Monocytes # (Auto) 0.75, Eosinophils # (Auto) 0.25, Basophils # (Auto) 0.01 10/08/17 05:35 Test 10/01/17 18:02 10/02/17 15:54 10/04/17 07:32 10/04/17 13:22 Red Blood Cell Morphology Unremarkable Prothrombin Time 10.2 SECONDS (9.0-12.0) Prothromb Time International Ratio 1.0 (0.9-1.1) Activated Partial Thromboplast Time 28.2 SECONDS (21.0-31.0) Partial Thromboplastin Ratio 1.1 Lactic Acid Level 1.5 mmol/L (0.4-2.0) Phosphorus Level 2.6 mg/dl (2.5-4.9) Magnesium Level 2.3 mg/dl (1.8-2.4) Total Bilirubin 0.5 mg/dl (0.2-1) Aspartate Amino Transf (AST/SGOT) 14 U/L (15-37) Alanine Aminotransferase (ALT/SGPT) 12 U/L (12-78) Alkaline Phosphatase 29 U/L (45-117) Total Protein 6.0 gm/dl (6.4-8.2) Albumin 3.0 gm/dl (3.4-5.0) Globulin 3.0 gm/dl (2.5-4.0) Albumin/Globulin Ratio 1.0 (0.9-2) Urine Legionella Antigen NOT DETECTED (NOT DETECTED) Estimated Average Glucose 137 mg/dl Hemoglobin A1c 6.4 % (4.5-5.6) Arterial Blood pH 7.40 (7.35-7.45) Arterial Blood Partial Pressure CO2 47 mmHg (35-46) Arterial Blood Partial Pressure O2 62 mm/Hg (80-95) Arterial Blood HCO3 29 mmol/L (19-24) Arterial Blood Oxygen Saturation 91.2 % (90-95) Arterial Blood Base Excess 3.2 mEq/L (-9-1.8) Arterial Blood Gas Delivery 3L Michael Test POS (POS) Test 10/07/17 00:00 10/07/17 13:22 10/08/17 05:35 Influenza Type A (RT-PCR) Neg for Influ A (NEG) Influenza Type B (RT-PCR) Neg for Influ B (NEG) Vancomycin Level Trough 15.3 mcg/ml (SEE COMMENT) White Blood Count 9.80 K/uL (4.8-10.8) Red Blood Count 4.27 M/uL (4.7-6.1) Hemoglobin 13.3 g/dL (14.0-18.0) Hematocrit 39.5 % (42-52) Mean Corpuscular Volume 92.5 fL (80-100) Mean Corpuscular Hemoglobin 31.1 pg (25-34) Mean Corpuscular Hemoglobin Concent 33.7 g/dl (32-36) Platelet Count 145 K/uL (130-400) Mean Platelet Volume 10.4 fL (7.4-10.4) Neutrophils (%) (Auto) 76.7 % Lymphocytes (%) (Auto) 10.6 % Monocytes (%) (Auto) 7.7 % Eosinophils (%) (Auto) 2.6 % Basophils (%) (Auto) 0.1 % Neutrophils # (Auto) 7.52 K/uL (1.4-6.5) Lymphocytes # (Auto) 1.04 K/uL (1.2-3.4) Monocytes # (Auto) 0.75 K/uL (0.11-0.59) Eosinophils # (Auto) 0.25 K/uL (0-0.5) Basophils # (Auto) 0.01 K/uL (0-0.2) RDW Standard Deviation 49.6 fL (36.4-46.3) RDW Coefficient of Variation 14.7 % (11.5-14.5) Immature Granulocyte % (Auto) 2.3 % Immature Granulocyte # (Auto) 0.23 K/uL (0.00-0.02) Anion Gap 7.0 mmol/L (3-11) Est Creatinine Clear Calc Drug Dose 44.6 ml/min Estimated GFR () 59.3 Estimated GFR (Non- 51.2 BUN/Creatinine Ratio 16.9 (10-20) Calcium Level 8.3 mg/dl (8.5-10.1) Date/Time Source Procedure Growth Status 10/04/17 20:30 Nasal MRSA DNA Surveillance Screen - Final Specimen Positive for MRSA by DNA Probe Complete 10/03/17 14:02 Sputum Expectorated Sputum Gram Stain - Final Complete 10/03/17 14:02 Sputum Expectorated Sputum Sputum Culture - Final Complete Last 24 Hours Test 10/08/17 05:35 White Blood Count 9.80 K/uL Red Blood Count 4.27 M/uL Hemoglobin 13.3 g/dL Hematocrit 39.5 % Mean Corpuscular Volume 92.5 fL Mean Corpuscular Hemoglobin 31.1 pg Mean Corpuscular Hemoglobin Concent 33.7 g/dl Platelet Count 145 K/uL Mean Platelet Volume 10.4 fL Neutrophils (%) (Auto) 76.7 % Lymphocytes (%) (Auto) 10.6 % Monocytes (%) (Auto) 7.7 % Eosinophils (%) (Auto) 2.6 % Basophils (%) (Auto) 0.1 % Neutrophils # (Auto) 7.52 K/uL Lymphocytes # (Auto) 1.04 K/uL Monocytes # (Auto) 0.75 K/uL Eosinophils # (Auto) 0.25 K/uL Basophils # (Auto) 0.01 K/uL RDW Standard Deviation 49.6 fL RDW Coefficient of Variation 14.7 % Immature Granulocyte % (Auto) 2.3 % Immature Granulocyte # (Auto) 0.23 K/uL Sodium Level 138 mmol/L Potassium Level 3.9 mmol/L Chloride Level 108 mmol/L Carbon Dioxide Level 23 mmol/L Anion Gap 7.0 mmol/L Blood Urea Nitrogen 22 mg/dl Creatinine 1.30 mg/dl Est Creatinine Clear Calc Drug Dose 44.6 ml/min Estimated GFR () 59.3 Estimated GFR (Non- 51.2 BUN/Creatinine Ratio 16.9 Random Glucose 99 mg/dl Calcium Level 8.3 mg/dl Assessment & Plan 82 yoM with COPD on chronic oxygen at 3L presented as a transfer from [facility] for worsening hypoxia 2/2 COPD exacerbation from RLL pneumonia. 1. CAP-Most recent CXR reveals persistent pneumonia with bibasilar infiltrates. Pt continues to remain afebrile and clinically improved. At baseline hypoxiaSputum cultures were contaminated with epis. Initially received doxy and ceftriaxone which was broadened 2/2 lack of clinical improvement to Vanc, Zosyn and Doxy. No quinolones 2/2 prolonged QTc. Narrowed to Amoxicillin and continue with doxy. Deconditioning noted from this hospitalization and patient lives alone. PT/OT to assess today. 2. COPD exacerbation-2/2 pneumonia. Cont prednisone, bronchodilators, flutter valve. Pulm following and recommended prednisone taper. 3. CAD-pt denies chest pain. Cont med management with ASA, Metoprolol and Pravastatin. 4. Chronic left ventricular diastolic heart failure-compensated. Pt has had 5 days of IVF which were stopped. His weight is up and he is currently tolerating PO. Chronic LE edema. SUDHAKAR angel ordered. Restarting home Lasix at reduced dosage. 5. CKD III-at baseline. Monitor 6. HTN-continues to be uncontrolled. Increased Lisinopril to 5mg PO BID, added home Lasix back to regimen, cont clonidine and metop 7. Thrush-poss 2/2 steroid use. Nystatin oral rinse ordered for 7 days. 8. GERD-started on Protonix this admission for heartburn symptoms. 9. BPH-tamsulosin 10. Hypothyroidism-cont Synthroid at current dose. Full code-no Mech Ventilation DVT proph-heparin Dispo-may need SNF or rehab but patient declines this or home health at this time. Darlene Stokes DO [facility] Hospitalist Consultants: Pulmonary Medicine . Current Inpatient Medications: Current Inpatient Medications Medications (Trade) Dose Ordered Sig/Luis Route Start Time Stop Time Status Last Admin Dose Admin Acetaminophen (Tylenol Tab) 650 mg Q4H PRN PO 10/01/17 17:30 10/31/17 17:29 Doxycycline Hyclate (Vibramycin Cap) 100 mg BID PO 10/02/17 09:00 10/09/17 08:59 10/08/17 07:49 100 MG Allopurinol (Zyloprim Tab) 300 mg QAM PO 10/02/17 09:00 11/01/17 08:59 10/08/17 07:50 300 MG Aspirin (Ecotrin Tab) 81 mg HS PO 10/01/17 21:00 10/31/17 20:59 10/07/17 20:31 81 MG Salmeterol Xinafoate/ Fluticasone (Advair Diskus 500/50 Inh) 1 puff BID INH 10/01/17 21:00 10/31/17 20:59 10/08/17 07:48 1 PUFF Levothyroxine Sodium (Synthroid Tab) 50 mcg DAILYBB PO 10/02/17 06:00 11/01/17 05:59 10/08/17 06:15 50 MCG Metoprolol Tartrate (Lopressor Tab) 50 mg BID PO 10/01/17 21:00 1/5/18 20:59 10/08/17 07:49 50 MG Pravastatin Sodium (Pravachol Tab) 40 mg HS PO 10/01/17 21:00 10/31/17 20:59 10/07/17 20:31 40 MG Tamsulosin HCl (Flomax Cap) 0.4 mg PM PO 10/01/17 21:00 10/31/17 20:59 10/07/17 20:31 0.4 MG Clonidine HCl (Catapres Tab) 0.2 mg BID PO 10/01/17 21:00 10/31/17 20:59 10/08/17 07:48 0.2 MG Al Hydrox/Mg Hydrox/Simethicone (Maalox Max Susp) 15 ml Q6H PRN PO 10/02/17 19:30 11/01/17 19:29 Magnesium Hydroxide (Milk Of Magnesia Susp) 30 ml BID PRN PO 10/03/17 15:00 11/02/17 14:59 Hydralazine HCl (HydrALAZINE INJ) 10 mg Q6H PRN IV. 10/04/17 00:00 11/03/17 00:00 10/08/17 04:32 10 MG Pantoprazole Sodium (Protonix Tab) 40 mg BID PO 10/04/17 09:00 11/03/17 08:59 10/08/17 07:49 40 MG Levalbuterol (Xopenex 0.63 Mg/ 3 Ml Neb) 0.63 mg Q2H PRN INH 10/04/17 19:15 11/03/17 19:14 10/05/17 01:33 0.63 MG Levalbuterol (Xopenex 1.25MG/ 0.5ML Neb) 1.25 mg QIDR INH 10/04/17 20:00 11/03/17 19:59 10/08/17 11:23 1.25 MG Piperacillin Sod/ Tazobactam Sod 3.375 gm/Dextrose 115 ml @ 28.75 mls/ hr Q8H IV 10/05/17 02:00 10/12/17 01:59 10/08/17 10:09 28.75 MLS/HR Piperacillin Sod/ Tazobactam Sod (Consult) 1 ea UD PRN N/A 10/04/17 19:30 11/03/17 19:29 Vancomycin HCl (Consult) 1 ea UD PRN N/A 10/04/17 19:30 11/03/17 19:29 Vancomycin HCl 1250 mg/Sodium Chloride 275 ml @ 125 mls/hr Q18H IV 10/05/17 08:00 10/12/17 07:59 10/08/17 07:38 125 MLS/HR Prednisone (PredniSONE TAB) 40 mg DAILY PO 10/07/17 09:00 11/06/17 08:59 10/08/17 07:49 40 MG Nystatin (Mycostatin Susp) 5 ml QID PO 10/07/17 09:00 10/14/17 08:59 10/08/17 11:52 5 ML Polyethylene (Miralax Powder Packet) 17 gm DAILY PRN PO 10/07/17 08:45 11/06/17 08:44 Heparin Sodium (Porcine) (Heparin Sq 5000 Unit/0.5ml) 5,000 unit Q8 SQ 10/07/17 14:00 11/06/17 13:59 10/08/17 06:14 5,000 UNIT Lisinopril (Zestril Tab) 5 mg QAM PO 10/08/17 09:00 11/07/17 08:59 10/08/17 09:12 5 MG
[2017-10-08] MEDS: LISINOPRIL 5 MG TAB PO SCH (20:49)
[2017-10-08] MEDS: TAMSULOSIN HCL 0.4 MG CAP PO SCH (20:51)
[2017-10-08] MEDS: PRAVASTATIN SOD 40 MG TAB PO SCH (20:51)
[2017-10-08] MEDS: ASPIRIN 81 MG ECTAB PO SCH (20:52)
[2017-10-09] VITALS (11 sets, daily range): BP systolic 135–201; BP diastolic 68–98; PULSE 75–92; TEMP 36.6; O2SAT 95–98
[2017-10-09] MEDS: HydrALAZINE HCL 20 MG/ML VIAL IV. PRN (01:43)
[2017-10-09] MEDS: HEPARIN SOD 5000 UNIT/0.5 ML CARP SQ SCH ×3 (06:00→19:48)
[2017-10-09] MEDS: LEVOTHYROXINE 50 MCG TAB PO SCH (06:02)
[2017-10-09 07:16] LABS: BUN/CREATININE RATIO 14.4 (10-20); CALCIUM 8.5 mg/dl (8.5-10.1); CREATININE 1.34 mg/dl (0.60-1.40); MAGNESIUM 2.3 mg/dl (1.8-2.4); POTASSIUM 4.3 mmol/L (3.5-5.1)
[2017-10-09] MEDS: LEVALBUTEROL 1.25MG/0.5ML NEB INH SCH ×4 (07:22→19:24)
[2017-10-09] MEDS: PANTOprazole SOD 40 MG TAB PO SCH ×2 (08:26→19:46)
[2017-10-09] MEDS: FLUTICASONE/SALMETEROL (ADVAIR) 500/50 INH 14 PUFF INH SCH ×2 (08:27→19:44)
[2017-10-09] MEDS: AMOXICILLIN 500 MG CAP PO SCH ×3 (08:27→19:45)
[2017-10-09] MEDS: LISINOPRIL 5 MG TAB PO SCH ×2 (08:28→19:47)
[2017-10-09] MEDS: ALLOPURINOL 300 MG TAB PO SCH (08:28)
[2017-10-09] MEDS: METOPROLOL TARTRATE 50 MG TAB PO SCH ×2 (08:28→19:51)
[2017-10-09] MEDS: CLONIDINE HCL 0.1 MG TAB PO SCH ×2 (08:29→19:45)
[2017-10-09] MEDS: NYSTATIN SUSP 500,000 U/5 ML UDC PO SCH ×4 (08:29→19:46)
[2017-10-09] MEDS: FUROSEMIDE 20 MG TAB PO SCH ×2 (09:55→17:08)
[2017-10-09] MEDS: DOXYCYCLINE HYCLATE 100 MG CAP PO SCH ×2 (09:55→19:46)
[2017-10-09] MEDS ORDERED: NYSS5 PO (16:32)
[2017-10-09] MEDS ORDERED: DXY100 PO (16:32)
[2017-10-09] MEDS ORDERED: PRD20 PO (16:32)
[2017-10-09] MEDS ORDERED: AMX500 PO (16:32)
--- NOTE | 2017-10-09 16:42 | Discharge Summary ---
Discharge Summary Date of Service Oct 09, 2017. Discharge Summary Admission Date: Oct 01, 2017 at 17:24 Discharge Date: Oct 09, 2017 Discharge Disposition: Home with services Principal Diagnosis: Pneumonia COPD exacerbation-2/2 pneumonia CAD Chronic left ventricular diastolic heart failure CKD III-at baseline HTN Thrush GERD BPH Hypothyroidism Ambulatory Dysfunction 2/2 deconditioning from prolonged hospitalization Procedures: None. Vaccinations: None. Consultations: Pulmonary Medicine . Pending Studies/Follow-Up: see instructions below. Medication Reconciliation New Medications: Amoxicillin (Amoxicillin) 500 Mg Cap 1000 MG PO TID for 4 Days, #24 CAP Doxycycline Hyclate (Doxycycline Hyclate) 100 Mg Cap 100 MG PO BID for 4 Days, #8 CAP Nystatin (Nystatin) 5 Ml Susp 5 ML PO QID for 4 Days, #200 ML Prednisone (Prednisone) 20 Mg Tab 20 MG PO DAILY for 7 Days, #7 TAB Continued Medications: Albuterol Hfa (Ventolin Hfa) 200 Puffs/41963 Mcg Aers 2-4 PUFFS INH Q6H PRN for shortness of breath, #1 INHALER Allopurinol (Zyloprim) 300 Mg Tab 300 MG PO QAM, TAB Aspirin (Aspirin Ec) 81 Mg Tab 81 MG PO HS Clonidine Hcl (Catapres) 0.2 Mg Tab 0.2 MG PO BID, TAB Fluticasone Prop/Salmeterol (Advair Diskus 500/50 60 Dose) 1 Ea Aerp 1 PUFFS INH BID for 30 Days, #1 INHALER 5 Refills Furosemide (Furosemide) 20 Mg Tab 20 MG PO QAM Furosemide (Furosemide) 40 Mg Tab 40 MG PO QAM Home O2 Therapy (Oxygen) Gas 2 LITERS NA UD for 30 Days OXYGEN 2LTS VIA NASAL CANULA AT REST AND 3LTS WHILE AMBULATING CONTINOUSLY Ipratropium-Albuterol (Combivent Respimat) 1 Aer Aer 1 PUFFS INH QID PRN for Wheezing, INH Ipratropium-Albuterol (Duoneb) 3 Ml Nebu 1 TREATMENT INH Q6H PRN for sob/wheezing for 15 Days, INHA 2 Refills may also use every 2-4 hours PRN for shortness of breath or wheezing Levothyroxine Sodium (Synthroid) 50 Mcg Tab 50 MCG PO QAM, TAB Lisinopril (Prinivil) 5 Mg Tab 5 MG PO PM, TAB Metoprolol Tartrate (Lopressor) (Lopressor) 50 Mg Tab 50 MG PO BID, #180 Pravastatin Sodium (Pravastatin Sodium) 40 Mg Tab 40 MG PO HS Tamsulosin Hcl (Flomax) 0.4 Mg Cap 0.4 MG PO PM, CAP Admission Information HPI (per Admitting provider): 82 year old male who was transferred from [facility] ED for COPD exacerbation and RLL pneumonia. Patient reports he started to feel sick about 3 days ago. He has had progressive shortness of breath with exertion. He reports a cough productive for brown sputum. Today he had chills and rigors. He did not take his temperature at home. He denies chest pain and palpitations. He reports mild lightheadedness and dizziness and denies syncopal event. He has chronic lower extremity edema, L > R which has been at baseline. No abdominal pain, nausea, vomiting, or diarrhea. He denies urinary symptoms. EMS was called and patient received nebulizer and solumedrol en route. Upon arrival to [facility]'s ED, patient was febrile at 104.1 rectally. CXR showed RLL pneumonia. He was also hypoxic on his chronic 3L at 88%. He had one documented hypotensive BP however others were stable. WBC 5.7, lactic acid 2.1 (normal per [facility] lab), creat 1.7 (baselines ~ 1.2). Sputum gram stain shows many WBCs, many gram + cocci, and few gram + rods. He was given Rocephin, Azithromycin, and NSS 1500ml. At the time of my exam, patient reports he is feeling much improved. He is currently saturating well on his chronic 3L. Physical Exam (per Admitting): General Appearance: WD/WN, no apparent distress Head: normocephalic, atraumatic Eyes: normal inspection, EOMI, sclerae normal ENT: hearing grossly normal, + pertinent finding (mucous membranes moist) Neck: supple, no JVD, trachea midline Respiratory/Chest: no respiratory distress, + decreased breath sounds (poor air entry noted throughout all lung martinez) Cardiovascular: regular rate, rhythm, normal peripheral pulses, + pertinent finding (+1 edema BLLE, L > R) Abdomen/GI: normal bowel sounds, non tender, soft, no organomegaly Extremities/Musculoskelatal: normal inspection, no calf tenderness, normal capillary refill Neurologic/Psych: no motor/sensory deficits, alert, normal mood/affect, oriented x 3 Skin: normal color, warm/dry Hospital Course 82 yoM with COPD on chronic oxygen at 3L presented as a transfer from [facility] for worsening hypoxia 2/2 COPD exacerbation from RLL pneumonia. 1. CAP-Most recent CXR reveals persistent pneumonia with bibasilar infiltrates. Pt continues to remain afebrile and clinically improved. At baseline hypoxiaSputum cultures were contaminated with epis. Initially received doxy and ceftriaxone which was broadened 2/2 lack of clinical improvement to Vanc, Zosyn and Doxy. No quinolones 2/2 prolonged QTc. Narrowed to Amoxicillin and continue with doxy. Deconditioning noted from this hospitalization and patient lives alone. PT/OT to assess today. 2. COPD exacerbation-2/2 pneumonia. Cont prednisone, bronchodilators, flutter valve. Pulm following and recommended prednisone taper. 3. CAD-pt denies chest pain. Cont med management with ASA, Metoprolol and Pravastatin. 4. Chronic left ventricular diastolic heart failure-compensated. Pt has had 5 days of IVF which were stopped. His weight is up and he is currently tolerating PO. Chronic LE edema. SUDHAKAR hose ordered. Restarting home Lasix at reduced dosage. 5. CKD III-at baseline. Monitor 6. HTN-continues to be uncontrolled. Increased Lisinopril to 5mg PO BID, added home Lasix back to regimen, cont clonidine and metop 7. Thrush-poss 2/2 steroid use. Nystatin oral rinse ordered for 7 days. 8. GERD-started on Protonix this admission for heartburn symptoms. 9. BPH-tamsulosin 10. Hypothyroidism-cont Synthroid at current dose. Full code-no Mech Ventilation DVT proph-heparin Dispo-may need SNF or rehab but patient declines this or home health at this time. DO [facility] Total time spent on discharge = 60 minutes This includes examination of the patient, discharge planning, medication reconciliation, and communication with other providers. Discharge Instructions [facility] [address] [place] [address] Discharge Medical Patient Name: Joselo Logan Unit Number: [id number] Date of : 1935 Patient Status: Admitted Inpatient Attending Doctor: Darlene Stokes DO DI: Medical v4 Discharge Instructions Date of Service Oct 09, 2017. Admission Reason for Admission: Copd Exacerbation, Pneumonia Discharge Discharge Diagnosis / Problem: COPD exacerbation 2/2 Pneumonia Discharge Goals Goal(s): Prevent Disease Progression Activity Recommendations Activity Limitations: per Instructions/Follow-up section . Instructions / Follow-Up Instructions / Follow-Up Please take all medications as listed above. Please note new medications and any changes to old medications. It is recommended that you follow-up with your primary care physician within 3 days of hospital discharge for follow-up from this hospitalization. It is recommended that you follow-up with the [facility] within 1-2 weeks of discharge. You will need a follow-up chest xray in 4-6 weeks to ensure resolution of your pneumonia. This can be ordered through your primary care physician's office. You will be receiving Home Health for physical therapy at home for the short- term until you regain full strength. You can expect them roughly three times weekly and will receive a call from them about setting up the first meeting. It was a pleasure taking care of you! Call if you have any questions or problems. You can reach a [facility] hospitalist on duty at [facility] 24 hours a day by calling [phone]. Take care of yourself. Darlene Stokes DO [facility] Hospitalist Current Hospital Diet Patient's current hospital diet: N/A, AHA Diet (Heart Healthy) Discharge Diet Recommended Diet: AHA Diet (Heart Healthy) Procedures Procedures Performed: None. Pending Studies Studies pending at discharge: no Laboratory Results Hemoglobin A1c Test 10/04/17 07:32 Range/Units Estimated Average Glucose 137 mg/dl Hemoglobin A1c 6.4 H 4.5-5.6 % Medical Emergencies . Who to Call and When: Medical Emergencies: If at any time you feel your situation is an emergency, please call 911 immediately. . Non-Emergent Contact Non-Emergency issues call your: Primary Care Provider . . "Provider Documentation" section prepared by Darlene Stokes. . VTE Core Measure Inpt VTE Proph given/why not?: Unfractionated heparin SQ Additional Copies To Ochoa Kelly DO
[2017-10-09] MEDS ORDERED: VANCOMYCIN TROUGH ONE (19:30)
[2017-10-09] MEDS: TAMSULOSIN HCL 0.4 MG CAP PO SCH (19:47)
[2017-10-09] MEDS: ASPIRIN 81 MG ECTAB PO SCH (19:47)
[2017-10-09] MEDS: PRAVASTATIN SOD 40 MG TAB PO SCH (19:48)
== END 2017-10-09 20:20 | disposition home health service (06) | DRG 194 ==
LOC: C.2T 17:24 → ENRESERV 10-08 14:17 → C.4E 10-08 15:24
PROVIDERS: ADMIT Internal Medicine; ATTEND Hospitalist
DX: J18.9 Pneumonia, unspecified organism (principal); I50.32 Chronic diastolic (congestive) heart failure; J44.1 Chronic obstructive pulmonary disease with (acute) exacerbation; N17.9 Acute kidney failure, unspecified; I13.0 Hypertensive heart and chronic kidney disease with heart failure and stage 1 through stage 4 chronic kidney disease, or unspecified chronic kidney disease; J45.909 Unspecified asthma, uncomplicated; I25.10 Atherosclerotic heart disease of native coronary artery without angina pectoris; R73.9 Hyperglycemia, unspecified; I12.9 Hypertensive chronic kidney disease with stage 1 through stage 4 chronic kidney disease, or unspecified chronic kidney disease; M10.9 Gout, unspecified; E03.9 Hypothyroidism, unspecified; R41.0 Disorientation, unspecified; N40.0 Benign prostatic hyperplasia without lower urinary tract symptoms; N18.3 Chronic kidney disease, stage 3 (moderate); Z87.891 Personal history of nicotine dependence; Z99.81 Dependence on supplemental oxygen; Z86.73 Personal history of transient ischemic attack (TIA), and cerebral infarction without residual deficits; Z86.711 Personal history of pulmonary embolism; Z79.82 Long term (current) use of aspirin; Z80.9 Family history of malignant neoplasm, unspecified; Z82.49 Family history of ischemic heart disease and other diseases of the circulatory system; Z84.1 Family history of disorders of kidney and ureter; Z82.0 Family history of epilepsy and other diseases of the nervous system

== ENCOUNTER 2018-02-22 17:36 | Observation (INO) | payer OTHER ==
[~2018-02-22] VITALS: Ht 175.3 cm; Wt 71.5 kg
[~2018-02-22 17:36] MED LIST changes: +AMX500 PO; +DXY100 PO; +NYSS5 PO; -OXYC-57 PO; -POTA10CA28 PO; +PRD20 PO
[2018-02-22] MEDS ORDERED: ASPIRIN 81 MG CHEW PO STA (18:00)
[2018-02-22] MEDS ORDERED: OXGN (18:14)
[2018-02-22] MEDS ORDERED: IPRASOL4 INH (18:14)
[2018-02-22] MEDS ORDERED: ALBU18002 INH (18:14)
[2018-02-22 18:33] LABS: BASO % 0.2 %; BASO ABS # 0.01 K/uL (0-0.2); EOS % 3.8 %; HEMATOCRIT 39.6 % (42-52); HEMOGLOBIN 13.2 g/dL (14.0-18.0); IG# 0.01 K/uL (0.00-0.02); LYMPH % 18.5 %; LYMPH ABS # 0.97 K/uL (1.2-3.4); MEAN CELL VOLUME 93.6 fL (80-100); MEAN CORPUSCULAR HEMOGLOBIN 31.2 pg (25-34); MEAN CORPUSCULAR HGB CONC 33.3 g/dl (32-36); MONO % 8.4 %; MONO ABS # 0.44 K/uL (0.11-0.59); NEUT % 68.9 %; NEUT ABS # 3.61 K/uL (1.4-6.5); PLATELET COUNT 190 K/uL (130-400); RED CELL DISTRIBUTION WIDTH CV 13.7 % (11.5-14.5); RED CELL DISTRIBUTION WIDTH SD 46.4 fL (36.4-46.3); WHITE BLOOD COUNT 5.24 K/uL (4.8-10.8)
--- NOTE | 2018-02-22 18:43 | DIAGNOSTIC IMAGING REPORT ---
SINGLE VIEW CHEST CLINICAL HISTORY: Atypical chest pain. FINDINGS: An AP, portable, upright chest radiograph is compared to study dated 10/05/2017 and correlated with chest CT dated 06/18/2016. The examination is degraded by portable technique, apical lordotic positioning, and patient rotation. The heart is enlarged and there is atherosclerotic calcification of the thoracic aorta. The pulmonary vasculature is noncongested. Advanced emphysema and chronic interstitial thickening are similar to previous. Linear opacities are present the right lung base. No large pleural effusion or pneumothorax is seen. Atelectasis is noted in the left lung base. The skeletal structures are osteopenic. There are healed right-sided rib fractures. Degenerative change and scoliosis are noted in the thoracic spine. IMPRESSION: 1. Cardiomegaly and advanced emphysema. 2. Linear airspace opacities are present at the right lung base, likely representing scarring/atelectasis. Correlate clinically for evidence of pneumonia/aspiration pneumonitis. Electronically signed by: Neville Silva M.D. 02/22/2018 6:42 PM Dictated Date/Time: 02/22/2018 6:39 PM
[2018-02-22 19:00] LABS: ALBUMIN 3.3 gm/dl (3.4-5.0); ALT/SGPT 16 U/L (12-78); AST/SGOT 17 U/L (15-37); BLOOD UREA NITROGEN 21 mg/dl (7-18); CALCIUM 8.4 mg/dl (8.5-10.1); CARBON DIOXIDE 33 mmol/L (21-32); CREATININE 1.39 mg/dl (0.60-1.40); GLUCOSE 111 mg/dl (70-99); LIPASE 195 U/L (73-393); POTASSIUM 3.3 mmol/L (3.5-5.1); SODIUM 140 mmol/L (136-145)
[2018-02-22 19:05] LABS: ALKALINE PHOSPHATASE 47 U/L (45-117); TOTAL PROTEIN 6.6 gm/dl (6.4-8.2)
[2018-02-22] MEDS ORDERED: OPTIRAY 320 IV PRN (19:30)
--- NOTE | 2018-02-22 19:37 | DIAGNOSTIC IMAGING REPORT ---
CT SCAN OF THE ABDOMEN AND PELVIS WITH IV CONTRAST CLINICAL HISTORY: Left upper quadrant abdominal pain. COMPARISON STUDY: Abdominal CT dated 08/11/2017 and 06/13/2014. TECHNIQUE: Following the IV administration of 116 cc of Optiray 320, CT scan of the abdomen and pelvis is performed from the lung bases to the proximal femora. Images are reviewed in the axial, sagittal, and coronal planes. IV contrast was administered without complication. A dose lowering technique was utilized adhering to the principles of ALARA. The examination is modestly degraded by motion artifact. CT DOSE: 388.61 mGy.cm FINDINGS: Lung bases: The heart is enlarged and without pericardial effusion. The coronary arteries and aortic valve leaflets are densely calcified. Advanced emphysematous change is identified. There are bibasilar airspace opacities. No pleural effusion is identified. A 2.2 cm opacity in the lingula seen on image #22. This is unchanged from 2014 and typical in appearance for round atelectasis. Liver: The contrast-enhanced liver is normal in size, contour, and attenuation. Fatty infiltration is seen adjacent to falciform ligament. There is no intrahepatic biliary ductal dilatation. The hepatic veins and portal veins are patent. Gallbladder: There are small calcified gallstones without CT evidence of acute cholecystitis. Spleen: Normal in size and attenuation. Pancreas: Moderately atrophic and grossly unremarkable. Adrenal glands: Unremarkable. Kidneys: The contrast enhanced kidneys are atrophic and without hydronephrosis. The kidneys enhance symmetrically. Scattered subcentimeter cortical hypodensities likely represent cysts but are too small for definitive catheterization. A 3 mm nonobstructing calculus is seen in the left lower pole. Abdominal vasculature: There is advanced atherosclerotic calcification of the abdominal aorta. There has been aortobiiliac stent graft repair of an infrarenal abdominal aortic aneurysm. The residual aneurysm sac measures 5.8 cm in AP diameter and 5.5 cm in transverse diameter. Bowel: There is moderate to advanced colonic diverticulosis without CT evidence of acute diverticulitis. Moderate colonic fecal retention is observed. Colonic interposition is incidentally noted. No bowel obstruction is identified. The appendix is well-visualized and normal. Peritoneum: There is no intraperitoneal free air or abdominal ascites. Lymphadenopathy: None. Pelvic viscera: The prostate gland is enlarged and heterogeneous, measuring 7.1 cm in transverse diameter. There is median lobe hypertrophy and coarse prostatic calcifications. The bladder wall is circumferentially thickened and trabeculated suggesting chronic outlet obstruction. Skeletal structures: The skeletal structures are osteopenic. There is advanced lumbosacral spondylosis and scoliosis. No lytic or blastic lesions are seen. IMPRESSION: 1. There are no acute infectious or inflammatory findings in the abdomen or pelvis. 2. Cholelithiasis without CT evidence of acute cholecystitis. 3. Moderate constipation. No bowel obstruction is seen. 4. Cardiomegaly and advanced emphysema. 5. There has been aortobiiliac stent graft repair of an abdominal aortic aneurysm. The residual aneurysm sac measures 5.8 x 5.5 cm. 6. Bibasilar airspace opacities likely represent scarring/atelectasis. Correlate clinically for evidence of a superimposed infectious/inflammatory pneumonitis. 7. Moderate to advanced colonic diverticulosis without CT evidence of acute diverticulitis. 8. Nonobstructing left renal calculus. 9. Prostatomegaly with evidence of chronic bladder outlet obstruction. 10. Additional findings as above. Electronically signed by: Neville Silva M.D. 02/22/2018 7:36 PM Dictated Date/Time: 02/22/2018 7:22 PM
[2018-02-22] MEDS ORDERED: ALBUT/IPRATROP 3MG/0.5MG NEB 3 ML VIAL INH PRN (20:45)
[2018-02-22] MEDS ORDERED: ONDANSETRON INJ 2 MG/ML 2 ML VIAL IV PRN (20:45)
[2018-02-22] MEDS ORDERED: ACETAMINOPHEN 325 MG TAB PO PRN (20:45)
[2018-02-22] MEDS ORDERED: POLYETHYLENE (MIRALAX) 17 GM PACK PO PRN (20:45)
[2018-02-22] MEDS ORDERED: MoRPHine SULFATE 2 MG/ML CARP IV PRN (20:45)
[2018-02-22] MEDS ORDERED: NITROGLYCERIN 0.4 MG SL PER TAB CHARGE SL PRN (20:45)
[2018-02-22] MEDS ORDERED: ALBUTEROL HFA INHALER 8.5 GM INH PRN (20:45)
[2018-02-22] MEDS ORDERED: ALUMINUM/MAGNESIUM/SIMETH (MAALOX MAX) 30 ML UDC PO PRN (20:45)
[2018-02-22] MEDS ORDERED: IPRATROPIUM BROMIDE/ALBUTEROL respimat INH INH PRN (20:45)
[2018-02-22] MEDS ORDERED: POTASSIUM CHLORIDE 10 MEQ TABCR PO STA (20:50)
[2018-02-22] MEDS ORDERED: TAMSULOSIN HCL 0.4 MG CAP PO SCH (21:00)
[2018-02-22] MEDS ORDERED: PRAVASTATIN SOD 40 MG TAB PO SCH (21:00)
[2018-02-22] MEDS ORDERED: ASPIRIN 81 MG ECTAB PO SCH (21:00)
[2018-02-22] MEDS ORDERED: LISINOPRIL 5 MG TAB PO SCH (21:00)
--- NOTE | 2018-02-22 22:20 | HISTORY & PHYSICAL EXAMINATION ---
DATE OF ADMISSION: 02/22/2018 CHIEF COMPLAINT: Chest pain. HISTORY OF PRESENT ILLNESS: This is an 82-year-old male with past medical history significant for COPD, abdominal aortic aneurysm status post percutaneous repair, history of asthma, BPH, CAD status post stent, chronic diastolic CHF, chronic respiratory failure, gout, presents with chest pain. The patient since yesterday is having chest pain, lower part of the chest, lower left-sided chest pressure like, sharp chest pains, on and off 8/10 in severity. The pain is more when he is bending down and he is also feeling dizzy. Denies any nausea. Denies any sweating. Denies any headaches, no blurred vision, no earache, runny nose, no sore throat. He says he has some difficulties with swallowing, sometimes he is feeling some food is stuck in his throat. He has chronic shortness of breath and chronic cough, no abdominal pain. Normal bladder movements, somewhat constipated. No blood in the stools, no blood in the urine. Once in a while, he gets ankle edema, he takes p.o. Lasix. Lives alone and family lives close by. ALLERGIES: MOXIFLOXACIN. PAST MEDICAL HISTORY: As mentioned above. Also, past medical history is significant for CVA, , hypertension, hypothyroidism, hyperlipidemia, pulmonary hypertension, squamous cell carcinoma of the lip. PAST SURGICAL HISTORY: As mentioned above. History of squamous cell carcinoma excision status post AAA percutaneous repair, status post cardiac catheterization and stent placement, status post knee replacement. FAMILY HISTORY: Noncontributory. SOCIAL HISTORY: Former smoker. Lives alone. Family lives close by. Social alcohol. HOME MEDICATIONS: Enalapril 10 mg p.o. daily, aspirin 81 mg p.o. daily, clonidine 0.2 mg p.o. b.i.d., Advair Diskus 500/50 one puff inhalation b.i.d., Lasix 60 mg p.o. a.m., oxygen 2 liters, Synthroid 50 mcg p.o. daily, lisinopril 5 mg p.o. daily, Lopressor 50 mg p.o. b.i.d., pravastatin 40 mg p.o. at bedtime, Flomax 0.4 mg p.o. q.p.m., albuterol HFA 2-4 puffs inhalation q. 6 hours p.r.n., Combivent 1 puff inhalation q.i.d. p.r.n., DuoNebs 1 treatment inhalation q. 6 hours p.r.n. REVIEW OF SYMPTOMS: As per HPI. Rest of symptoms negative. PHYSICAL EXAMINATION: GENERAL: The patient is of moderate build, not in distress. VITAL SIGNS: Temperature 36.8, pulse 78, respiratory rate 20, blood pressure 173/109, oxygen 93% on 2 liters. HEENT: No pallor. Pupils equal, round, and react to light. NECK: No JVD, no neck masses, no carotid bruits. CARDIOVASCULAR: S1, S2 heard, regular rate and rhythm, no murmur, no gallop. RESPIRATORY SYSTEM: Normal AP diameter. No accessory muscle use. No wheezing, no crackles. ABDOMEN: Soft, bowel sounds present. Nontender. No distention. CENTRAL NERVOUS SYSTEM: Cranial nerves II-XII grossly intact. Nonfocal. EXTREMITIES: No edema, no erythema. LABORATORIES: WBC 5.2, hemoglobin 13.2, hematocrit 10.6, platelets 190. Sodium 140, potassium 3.3, chloride 102, bicarbonate 33, BUN 13, creatinine 1.3, serum glucose 111, calcium 8.4, total bilirubin 0.4, direct bilirubin 0.1, AST 17, ALT 16, alkaline phosphatase 47. Troponin I less than 0.015. Lipase 195. Urinalysis negative. Chest x-ray, cardiomegaly and advanced emphysema. Airspace opacities are present at the right lung base likely atelectasis. CT of the pelvis shows no apparent infectious inflammatory findings in the abdomen and pelvis, cholelithiasis without CT evidence of acute cholecystitis, moderate constipation cardiomegaly, and advanced emphysema. Aortobiiliac iliac stent graft repair of abdominal aortic aneurysm, The residual aneurysmal sac, measures 5.8 cm and 5.5 cm . EKG: Normal sinus rhythm, rate of 78, No acute st changes is seen. ASSESSMENT AND PLAN: This is an 82-year-old male who presents with chest pain. 1. Chest pain. History of coronary artery disease status post stent, rule out acute coronary syndrome. Initial workup negative . Will monitor serial cardiac enzymes,EKGs and echocardiogram. Monitor on telemetry floor. Consult cardiology in morning. for further recommendations, nothing by mouth after midnight. 2. History of coronary artery disease status post stent. Continue home medication of aspirin, statin, beta hafsa. Follow echocardiogram. 3. History of chronic obstructive pulmonary disease and a history of chronic respiratory failure. Continue home inhalers.currently stable. 4. History of chronic diastolic congestive heart failure, currently stable. Continue home Lasix and lisinopril and beta blockers and follow echocardiogram. 5. History of abdominal aortic aneurysm status post percutaneous repair. 6. Constipation, stool softeners. 7. History of gout, Continue allopurinol. 8. History of hypertension. Continue home medications of lisinopril and Lopressor and Catapres and Lasix. Monitor the blood pressure. 7. History of hyperlipidemia. Continue statin. 8. History of benign prostatic hypertrophy. Continue Flomax. 9. History of hypothyroidism. Continue Synthroid. 10. Hyponatremia and hypokalemia. replaced potassium. follow labs DISPOSITION: Admit to observation tele floor. Expect discharge home and follow with family doctor. Level 1 full code. MTDD
[2018-02-22 22:35] VITALS: BP 157/91; PULSE 80; TEMP 36.8; O2SAT 96
[2018-02-22 23:50] VITALS: BP 157/91; PULSE 80; TEMP 36.8; O2SAT 96; Ht 175.3 cm; Wt 71.5 kg
[2018-02-23] VITALS (7 sets, daily range): BP systolic 122–128; BP diastolic 71–77; PULSE 61–68; TEMP 36.3–36.7; O2SAT 94–97
--- NOTE | 2018-02-23 00:02 | EMERGENCY ROOM VISIT NOTE ---
History Report prepared by Elias: Jorge Rubi Under the Supervision of: Dr. Cristo Blair D.O. First contact with patient: 17:49 Chief Complaint: CHEST PAIN Stated Complaint: CHEST PAINS History of Present Illness The patient is an 82 year old male who presents to the Emergency Room with complaints of intermittent left upper quadrant abdominal pain that began last night. The patient states that the pain radiates the whole way down his left side, and up into the left chest. The intermittent episodes of pain last a few minutes at a time, and feel "sharp." He does have a cough, but there has not been any acute worsening of his chronic shortness of breath. Nothing seems to improve/worsen his pain. He does have a history of 2 myocardial infarctions with stent placement as well as COPD and wears 2.5 L of oxygen at baseline. This does note feel like his prior [place] episodes. Pt denies headache, change in vision, fevers, nausea, vomiting, diarrhea, pain with urination, and melena. Source of History: patient Onset: Last night Position: abdomen (LUQ) Quality: sharp Timing: intermittent Associated Symptoms: + cough, + chest pain, No fevers, No nausea, No vomiting Review of Systems See HPI for pertinent positives & negatives. A total of 10 systems reviewed and were otherwise negative. Past Medical & Surgical Medical Problems: (1) AAA (abdominal aortic aneurysm) without rupture (2) Asthma (3) Benign enlargement of prostate (4) CAD (coronary artery disease) (5) Chest pain (6) Chronic diastolic heart failure (7) Chronic obstructive lung disease (8) Dependence on continuous supplemental oxygen (9) Gout (10) H/O seborrheic keratosis (11) History of CVA (cerebrovascular accident) without residual deficits (12) Hx MRSA infection (13) Hx of pulmonary aspiration (14) Hypertension (15) Hypothyroidism (16) Mixed hyperlipidemia (17) Pulmonary emphysema (18) Pulmonary hypertension (19) Squamous cell carcinoma of lip Surgical Problems: (1) Hx of squamous cell carcinoma excision (2) S/P AAA repair (3) S/P coronary artery stent placement (4) S/P hernia repair (5) S/P knee replacement Family History Cancer Heart disease Hypertension Kidney disease Kidney stones Lung disease Seizures Social History Smoking Status: Former Smoker Alcohol Use: none Housing Status: lives alone Current/Historical Medications Scheduled Allopurinol (Zyloprim), 300 MG PO QAM Aspirin (Aspirin Ec), 81 MG PO HS Clonidine Hcl (Catapres), 0.2 MG PO BID Fluticasone Prop/Salmeterol (Advair Diskus 500/50 60 Dose), 1 PUFFS INH BID Furosemide (Furosemide), 20 MG PO QAM Furosemide (Furosemide), 40 MG PO QAM Home O2 Therapy (Oxygen), 2 LITERS NA DIRECTED Levothyroxine Sodium (Synthroid), 50 MCG PO QAM Lisinopril (Prinivil), 5 MG PO PM Metoprolol Tartrate (Lopressor) (Lopressor), 50 MG PO BID Pravastatin Sodium (Pravastatin Sodium), 40 MG PO HS Tamsulosin Hcl (Flomax), 0.4 MG PO PM Scheduled PRN Albuterol Sulfate (Proair Respiclick), 2 PUFFS INH Q2H PRN for Shortness of Breath Ipratropium-Albuterol (Combivent Respimat), 1 PUFFS INH QID PRN for Wheezing Ipratropium-Albuterol (Duoneb), 1 TREATMENT INH DIRECTED PRN for SOB/Wheezing Allergies Coded Allergies: Moxifloxacin (Verified Adverse Reaction, Mild, dizziness, 02/22/18) Physical Exam Vital Signs Date Time Temp Pulse Resp B/P (MAP) Pulse Ox O2 Delivery O2 Flow Rate FiO2 02/22/18 20:10 78 20 173/109 93 Nasal Cannula 2.0 02/22/18 17:56 76 02/22/18 17:41 36.8 78 20 188/98 90 Room Air Physical Exam GENERAL: Sitting up in bed, alert, well appearing, well nourished, no distress, non-toxic EYE EXAM: normal conjunctiva. OROPHARYNX: no exudate, no erythema, lips, buccal mucosa, and tongue normal and mucous membranes are moist NECK: supple, no nuchal rigidity, no adenopathy, non-tender LUNGS: Clear to auscultation. Normal chest wall mechanics HEART: no murmurs, S1 normal and S2 normal ABDOMEN: abdomen soft, non-tender, normo-active bowel sounds, no masses, no rebound or guarding. BACK: Back is symmetrical on inspection and there is no deformity, no midline tenderness, no CVA tenderness. SKIN: no rashes and no bruising UPPER EXTREMITIES: upper extremities are grossly normal. LOWER EXTREMITIES: No pitting edema. NEURO EXAM: Normal sensorium, cranial nerves II-XII grossly intact, normal speech, no gross weakness of arms, no gross weakness of legs. Medical Decision & Procedures ER Provider Diagnostic Interpretation: Radiology results as stated below per my review and the radiologist's interpretation: CT SCAN OF THE ABDOMEN AND PELVIS WITH IV CONTRAST CLINICAL HISTORY: Left upper quadrant abdominal pain. COMPARISON STUDY: Abdominal CT dated 08/11/2017 and 06/13/2014. TECHNIQUE: Following the IV administration of 116 cc of Optiray 320, CT scan of the abdomen and pelvis is performed from the lung bases to the proximal femora. Images are reviewed in the axial, sagittal, and coronal planes. IV contrast was administered without complication. A dose lowering technique was utilized adhering to the principles of ALARA. The examination is modestly degraded by motion artifact. CT DOSE: 388.61 mGy.cm FINDINGS: Lung bases: The heart is enlarged and without pericardial effusion. The coronary arteries and aortic valve leaflets are densely calcified. Advanced emphysematous change is identified. There are bibasilar airspace opacities. No pleural effusion is identified. A 2.2 cm opacity in the lingula seen on image #22. This is unchanged from 2014 and typical in appearance for round atelectasis. Liver: The contrast-enhanced liver is normal in size, contour, and attenuation. Fatty infiltration is seen adjacent to falciform ligament. There is no intrahepatic biliary ductal dilatation. The hepatic veins and portal veins are patent. Gallbladder: There are small calcified gallstones without CT evidence of acute cholecystitis. Spleen: Normal in size and attenuation. Pancreas: Moderately atrophic and grossly unremarkable. Adrenal glands: Unremarkable. Kidneys: The contrast enhanced kidneys are atrophic and without hydronephrosis. The kidneys enhance symmetrically. Scattered subcentimeter cortical hypodensities likely represent cysts but are too small for definitive catheterization. A 3 mm nonobstructing calculus is seen in the left lower pole. Abdominal vasculature: There is advanced atherosclerotic calcification of the abdominal aorta. There has been aortobiiliac stent graft repair of an infrarenal abdominal aortic aneurysm. The residual aneurysm sac measures 5.8 cm in AP diameter and 5.5 cm in transverse diameter. Bowel: There is moderate to advanced colonic diverticulosis without CT evidence of acute diverticulitis. Moderate colonic fecal retention is observed. Colonic interposition is incidentally noted. No bowel obstruction is identified. The appendix is well-visualized and normal. Peritoneum: There is no intraperitoneal free air or abdominal ascites. Lymphadenopathy: None. Pelvic viscera: The prostate gland is enlarged and heterogeneous, measuring 7.1 cm in transverse diameter. There is median lobe hypertrophy and coarse prostatic calcifications. The bladder wall is circumferentially thickened and trabeculated suggesting chronic outlet obstruction. Skeletal structures: The skeletal structures are osteopenic. There is advanced lumbosacral spondylosis and scoliosis. No lytic or blastic lesions are seen. IMPRESSION: 1. There are no acute infectious or inflammatory findings in the abdomen or pelvis. 2. Cholelithiasis without CT evidence of acute cholecystitis. 3. Moderate constipation. No bowel obstruction is seen. 4. Cardiomegaly and advanced emphysema. 5. There has been aortobiiliac stent graft repair of an abdominal aortic aneurysm. The residual aneurysm sac measures 5.8 x 5.5 cm. 6. Bibasilar airspace opacities likely represent scarring/atelectasis. Correlate clinically for evidence of a superimposed infectious/inflammatory pneumonitis. 7. Moderate to advanced colonic diverticulosis without CT evidence of acute diverticulitis. 8. Nonobstructing left renal calculus. 9. Prostatomegaly with evidence of chronic bladder outlet obstruction. 10. Additional findings as above. Electronically signed by: Neville Silva M.D. 02/22/2018 7:36 PM Dictated Date/Time: 02/22/2018 7:22 PM SINGLE VIEW CHEST CLINICAL HISTORY: Atypical chest pain. FINDINGS: An AP, portable, upright chest radiograph is compared to study dated 10/05/2017 and correlated with chest CT dated 06/18/2016. The examination is degraded by portable technique, apical lordotic positioning, and patient rotation. The heart is enlarged and there is atherosclerotic calcification of the thoracic aorta. The pulmonary vasculature is noncongested. Advanced emphysema and chronic interstitial thickening are similar to previous. Linear opacities are present the right lung base. No large pleural effusion or pneumothorax is seen. Atelectasis is noted in the left lung base. The skeletal structures are osteopenic. There are healed right-sided rib fractures. Degenerative change and scoliosis are noted in the thoracic spine. IMPRESSION: 1. Cardiomegaly and advanced emphysema. 2. Linear airspace opacities are present at the right lung base, likely representing scarring/atelectasis. Correlate clinically for evidence of pneumonia/aspiration pneumonitis. Electronically signed by: Neville Silva M.D. 02/22/2018 6:42 PM Dictated Date/Time: 02/22/2018 6:39 PM Laboratory Results 02/22/18 18:25 Red Blood Count 4.23, Mean Corpuscular Volume 93.6, Mean Corpuscular Hemoglobin 31.2, Mean Corpuscular Hemoglobin Concent 33.3, Mean Platelet Volume 9.0, Neutrophils (%) (Auto) 68.9, Lymphocytes (%) (Auto) 18.5, Monocytes (%) (Auto) 8.4, Eosinophils (%) (Auto) 3.8, Basophils (%) (Auto) 0.2, Neutrophils # (Auto) 3.61, Lymphocytes # (Auto) 0.97, Monocytes # (Auto) 0.44, Eosinophils # (Auto) 0.20, Basophils # (Auto) 0.01 02/22/18 18:25 Test 02/22/18 18:25 02/22/18 18:40 White Blood Count 5.24 K/uL (4.8-10.8) Red Blood Count 4.23 M/uL (4.7-6.1) Hemoglobin 13.2 g/dL (14.0-18.0) Hematocrit 39.6 % (42-52) Mean Corpuscular Volume 93.6 fL (80-100) Mean Corpuscular Hemoglobin 31.2 pg (25-34) Mean Corpuscular Hemoglobin Concent 33.3 g/dl (32-36) Platelet Count 190 K/uL (130-400) Mean Platelet Volume 9.0 fL (7.4-10.4) Neutrophils (%) (Auto) 68.9 % Lymphocytes (%) (Auto) 18.5 % Monocytes (%) (Auto) 8.4 % Eosinophils (%) (Auto) 3.8 % Basophils (%) (Auto) 0.2 % Neutrophils # (Auto) 3.61 K/uL (1.4-6.5) Lymphocytes # (Auto) 0.97 K/uL (1.2-3.4) Monocytes # (Auto) 0.44 K/uL (0.11-0.59) Eosinophils # (Auto) 0.20 K/uL (0-0.5) Basophils # (Auto) 0.01 K/uL (0-0.2) RDW Standard Deviation 46.4 fL (36.4-46.3) RDW Coefficient of Variation 13.7 % (11.5-14.5) Immature Granulocyte % (Auto) 0.2 % Immature Granulocyte # (Auto) 0.01 K/uL (0.00-0.02) Anion Gap 5.0 mmol/L (3-11) Est Creatinine Clear Calc Drug Dose 38.8 ml/min Estimated GFR () 54.7 Estimated GFR (Non- 47.2 BUN/Creatinine Ratio 14.9 (10-20) Calcium Level 8.4 mg/dl (8.5-10.1) Total Bilirubin 0.4 mg/dl (0.2-1) Direct Bilirubin 0.1 mg/dl (0-0.2) Aspartate Amino Transf (AST/SGOT) 17 U/L (15-37) Alanine Aminotransferase (ALT/SGPT) 16 U/L (12-78) Alkaline Phosphatase 47 U/L (45-117) Total Protein 6.6 gm/dl (6.4-8.2) Albumin 3.3 gm/dl (3.4-5.0) Lipase 195 U/L (73-393) Urine Color YELLOW Urine Appearance CLEAR (CLEAR) Urine pH 7.0 (4.5-7.5) Urine Specific [place] 1.015 (1.000-1.030) Urine Protein NEG (NEG) Urine Glucose (UA) NEG (NEG) Urine Ketones NEG (NEG) Urine Occult Blood NEG (NEG) Urine Nitrite NEG (NEG) Urine Bilirubin NEG (NEG) Urine Urobilinogen NEG (NEG) Urine Leukocyte Esterase NEG (NEG) Urine WBC (Auto) 0 /hpf (0-5) Urine RBC (Auto) 0-4 /hpf (0-4) Urine Hyaline Casts (Auto) 1-5 /lpf (0-5) Urine Epithelial Cells (Auto) 5-10 /lpf (0-5) Urine Bacteria (Auto) NEG (NEG) Laboratory results per my review. Medications Administered Medications (Trade) Dose Ordered Sig/Luis Route Start Time Stop Time Status Last Admin Dose Admin Aspirin (Aspirin Chew) 324 mg NOW STAT PO 02/22/18 18:00 02/22/18 18:02 DC 02/22/18 18:29 324 MG ECG Per My Interpretation Indication: chest pain Rate (beats per minute): 78 Rhythm: sinus rhythm Findings: RBBB, other (Normal axis) Comparison ECG Date: 10/06/17 Change: no significant change ED Course ED COURSE: Vital signs were reviewed and showed situationally hypertensive blood pressure. The patients medical record was reviewed The above diagnostic studies were performed and reviewed. ED treatments and interventions as stated above. 1750: The patient was evaluated in room A9B. A complete history and physical examination was performed. 1800: Ordered Aspirin 324 mg PO. 2011: I discussed the case with Dr. Michael Viveros. She will evaluate the patient for further treatment. 2015: Upon reevaluation, the patient is resting in bed.I discussed my findings with the patient and he understands and agrees with the treatment plan. Based on the patients age, coexisting illnesses, exam and lab findings the decision to treat as an inpatient was made. The patient remained stable while under my care. The patient will be evaluated for further management. Medical Decision Differential diagnoses includes but is not limited to acute coronary syndrome, myocardial infarction, pericarditis, pulmonary embolus, aortic dissection, pneumonia, pneumothorax, musculoskeletal, shingles, esophageal, gastritis, peptic ulcer disease, GERD, gallbladder disease, pancreatitis, small bowel obstruction, acute coronary syndrome, pericarditis, ischemic bowel, irritable bowel disease, irritable bowel syndrome, appendicitis, diverticulitis, malignancy, hernia, urinary tract infection, torsion, perforation, trauma, infectious. Patient is an 82-year-old male who presents the ER for left-sided chest pain. He does have a history of previous stents. On exam he points to the left lower chest wall. No other exacerbating or remitting factors. EKG was nondiagnostic. CBC along with BMP, LFTs, and troponin was negative. Lipase was normal. UA was negative. CT abdomen pelvis was negative as well. Patient's pain was relieved while here. He was given aspirin. I did question whether this was truly abdominal versus chest pain but with his history and pointing to his chest and felt was reasonable to observe him overnight. Medication Reconcilliation Current Medication List: was personally reviewed by me Blood Pressure Screening Patient's blood pressure: Elevated blood pressure Referred to hospitalist. Consults Time Called: 2004 Consulting Physician: Dr. Michael Ashton Hospitalist Returned Call: 2011 I discussed the case with Dr. Michael Ashton Hospitalist. She will evaluate the patient for further treatment. Impression Primary Impression: Precordial chest pain Scribe Attestation The scribe's documentation has been prepared under my direction and personally reviewed by me in its entirety. I confirm that the note above accurately reflects all work, treatment, procedures, and medical decision making performed by me. Departure Information Dispostion Being Evaluated By Hospitalist Referrals Ochoa Kelly DO (PCP) Patient Instructions My [facility]
[2018-02-23] MEDS: METOPROLOL TARTRATE 50 MG TAB PO SCH ×2 (00:25→08:26)
[2018-02-23] MEDS: FLUTICASONE/SALMETEROL (ADVAIR) 500/50 INH 14 PUFF INH SCH ×2 (00:25→08:27)
[2018-02-23] MEDS: CLONIDINE HCL 0.1 MG TAB PO SCH ×2 (00:25→08:27)
[2018-02-23] MEDS ORDERED: IV FLUIDS COMPLETED PRN (02:00)
[2018-02-23 04:51] LABS: BASO % 0.3 %; BASO ABS # 0.02 K/uL (0-0.2); EOS ABS # 0.29 K/uL (0-0.5); HEMOGLOBIN 12.1 g/dL (14.0-18.0); IG# 0.03 K/uL (0.00-0.02); LYMPH % 22.8 %; LYMPH ABS # 1.33 K/uL (1.2-3.4); MEAN CELL VOLUME 93.9 fL (80-100); MEAN CORPUSCULAR HEMOGLOBIN 30.7 pg (25-34); MEAN CORPUSCULAR HGB CONC 32.7 g/dl (32-36); MEAN PLATELET VOLUME 9.2 fL (7.4-10.4); MONO % 10.3 %; NEUT % 61.1 %; NEUT ABS # 3.56 K/uL (1.4-6.5); PLATELET COUNT 197 K/uL (130-400); RED CELL DISTRIBUTION WIDTH CV 13.5 % (11.5-14.5); RED CELL DISTRIBUTION WIDTH SD 46.9 fL (36.4-46.3); WHITE BLOOD COUNT 5.83 K/uL (4.8-10.8)
[2018-02-23 05:19] LABS: BLOOD UREA NITROGEN 23 mg/dl (7-18); CALCIUM 8.5 mg/dl (8.5-10.1); CARBON DIOXIDE 34 mmol/L (21-32); GLUCOSE 93 mg/dl (70-99); POTASSIUM 3.5 mmol/L (3.5-5.1); SODIUM 141 mmol/L (136-145)
[2018-02-23 05:25] LABS: CHOLESTEROL 132 mg/dl (0-200); CKMB 1.9 ng/ml (0.5-3.6); LDL CHOLESTEROL CALCULATED 72 mg/dl
[2018-02-23] MEDS ORDERED: LEVOTHYROXINE 50 MCG TAB PO SCH (06:00)
--- NOTE | 2018-02-23 07:19 | Progress Note ---
Internal Med Progress Note Date of Service: Feb 23, 2018. Provider Documentation: SUBJECTIVE: Seen and examine ellis bedside Denies chest pain, SOB, dizziness, nausea LUQ abdominal pain resolved Reports chronic constipation, chronic cough(unchanged) Eager to get discharged No BM today No other complaints Eager to discharged OBJECTIVE: Vital Signs-as noted below Physical Exam: General Appearance:Moderately built and nourished, no apparent distress Head: normocephalic, Atraumatic Eyes: normal inspection, EOMI, PERRL Neck: supple, Trachea midline Respiratory/Chest: Normal breath sounds, scattered b/l wheezes Cardiovascular: S1, S2, No murmur Abdomen/GI:Soft, Non tender, Bowel sounds present Extremities/Musculoskelatal:normal inspection, no edema Neurologic/Psych:AAOX3, grossly no focal neurological deficits Skin: normal color, warm Lab data as noted below. ASSESSMENT & PLAN: Patient is an 82 yr male who presents with LUQ sharp, intermittent abdominal pain radiating up to left chest. Abdominal Pain: Constipation CT ABD: no acute infectious or inflammatory findings, moderate constipation Continue bowel regimen Atypical Chest Pain r/o ACS: H/O CAD S/P stent EKG: no signs of acute Ischemia ECHO:pending Appreciate Cardiology Input continue aspirin, metoprolol, statins ECHO as below Advised to follow up with Primary Bending Roll Operator as outpatient Chronic dysphagia: Speech and swallow eval May need GI eval as outpatient COPD Chronic oxygen dependency: 2.5 liters at baseline no signs of exacerbation continue inhalers Chronic diastolic CHF: No signs of decompensation Continue Lasix, lisinopril, BB monitor H/O AAA: S/P repair Gout: Continue allopurinol HTN: stable continue current meds HLP: continue statins BPH: continue Flomax Hypothyroidism: continue levothyroxine Hypokalemia: replace and monitor DVT Px: SCDs Code Status: Full code. Disposition: Plan to discharge home today Follow up with your PCP in 1 week as advised Follow up with your Bending Roll Operator in 2-3 weeks as advised Seek immediate medical attention if your symptoms reoccur or worsen PROCEDURES: CT ABD: 1. There are no acute infectious or inflammatory findings in the abdomen or pelvis. 2. Cholelithiasis without CT evidence of acute cholecystitis. 3. Moderate constipation. No bowel obstruction is seen. 4. Cardiomegaly and advanced emphysema. 5. There has been aortobiiliac stent graft repair of an abdominal aortic aneurysm. The residual aneurysm sac measures 5.8 x 5.5 cm. 6. Bibasilar airspace opacities likely represent scarring/atelectasis. Correlate clinically for evidence of a superimposed infectious/inflammatory pneumonitis. 7. Moderate to advanced colonic diverticulosis without CT evidence of acute diverticulitis. 8. Nonobstructing left renal calculus. 9. Prostatomegaly with evidence of chronic bladder outlet obstruction. 10. Additional findings as above. ECHO: * The left ventricle is normal in size. * There is moderate concentric left ventricular hypertrophy. * Left ventricular systolic function is normal. * The left ventricular wall motion is normal. * Ejection Fraction = 60-65%. * Grade I diastolic dysfunction, (abnormal relaxation pattern). * The right ventricle is moderately dilated. * The right ventricular systolic function is borderline reduced. * Aortic valve leaflets are moderately calcified * Mild to moderate valvular aortic stenosis. * There is a very small apical and lateral pericardial effusion of non- hemodynamic significance Vital Signs: Date Time Temp Pulse Resp B/P (MAP) Pulse Ox O2 Delivery O2 Flow Rate FiO2 02/23/18 16:02 36.3 63 18 122/73 (89) 97 Nasal Cannula 2.0 02/23/18 12:00 Nasal Cannula 2.0 02/23/18 11:37 36.5 61 19 127/75 (92) 94 Nasal Cannula 2.0 02/23/18 08:00 Nasal Cannula 2.0 02/23/18 07:37 36.7 65 19 124/71 (88) 95 Nasal Cannula 2.0 02/23/18 04:00 95 Nasal Cannula 2.0 02/23/18 03:43 36.6 68 18 128/77 (94) 95 Nasal Cannula 2.0 02/23/18 00:15 96 Nasal Cannula 2.0 02/22/18 23:50 36.8 80 22 157/91 96 Nasal Cannula 2.0 02/22/18 22:35 36.8 80 22 157/91 (113) 96 Nasal Cannula 2.0 02/22/18 21:08 74 17 210/115 97 Nasal Cannula 2.0 02/22/18 20:10 78 20 173/109 93 Nasal Cannula 2.0 02/22/18 17:56 76 02/22/18 17:41 36.8 78 20 188/98 90 Room Air Lab Results: Results Past 24 Hours Test 02/22/18 18:25 02/22/18 18:40 02/22/18 21:03 02/23/18 04:15 Range/Units White Blood Count 5.24 5.83 4.8-10.8 K/uL Red Blood Count 4.23 3.94 4.7-6.1 M/uL Hemoglobin 13.2 12.1 14.0-18.0 g/dL Hematocrit 39.6 37.0 42-52 % Mean Corpuscular Volume 93.6 93.9 80-100 fL Mean Corpuscular Hemoglobin 31.2 30.7 25-34 pg Mean Corpuscular Hemoglobin Concent 33.3 32.7 32-36 g/dl Platelet Count 190 197 130-400 K/uL Mean Platelet Volume 9.0 9.2 7.4-10.4 fL Neutrophils (%) (Auto) 68.9 61.1 % Lymphocytes (%) (Auto) 18.5 22.8 % Monocytes (%) (Auto) 8.4 10.3 % Eosinophils (%) (Auto) 3.8 5.0 % Basophils (%) (Auto) 0.2 0.3 % Neutrophils # (Auto) 3.61 3.56 1.4-6.5 K/uL Lymphocytes # (Auto) 0.97 1.33 1.2-3.4 K/uL Monocytes # (Auto) 0.44 0.60 0.11-0.59 K/uL Eosinophils # (Auto) 0.20 0.29 0-0.5 K/uL Basophils # (Auto) 0.01 0.02 0-0.2 K/uL RDW Standard Deviation 46.4 46.9 36.4-46.3 fL RDW Coefficient of Variation 13.7 13.5 11.5-14.5 % Immature Granulocyte % (Auto) 0.2 0.5 % Immature Granulocyte # (Auto) 0.01 0.03 0.00-0.02 K/uL Sodium Level 140 141 136-145 mmol/L Potassium Level 3.3 3.5 3.5-5.1 mmol/L Chloride Level 102 104 98-107 mmol/L Carbon Dioxide Level 33 34 21-32 mmol/L Anion Gap 5.0 3.0 3-11 mmol/L Blood Urea Nitrogen 21 23 7-18 mg/dl Creatinine 1.39 1.40 0.60-1.40 mg/dl Est Creatinine Clear Calc Drug Dose 38.8 41.4 ml/min Estimated GFR () 54.7 54.2 Estimated GFR (Non- 47.2 46.8 BUN/Creatinine Ratio 14.9 16.1 10-20 Random Glucose 111 93 70-99 mg/dl Calcium Level 8.4 8.5 8.5-10.1 mg/dl Total Bilirubin 0.4 0.2-1 mg/dl Direct Bilirubin 0.1 0-0.2 mg/dl Aspartate Amino Transf (AST/SGOT) 17 15-37 U/L Alanine Aminotransferase (ALT/SGPT) 16 12-78 U/L Alkaline Phosphatase 47 45-117 U/L Troponin I < 0.015 < 0.015 < 0.015 0-0.045 ng/ml Total Protein 6.6 6.4-8.2 gm/dl Albumin 3.3 3.4-5.0 gm/dl Lipase 195 73-393 U/L Urine Color YELLOW Urine Appearance CLEAR CLEAR Urine pH 7.0 4.5-7.5 Urine Specific [place] 1.015 1.000-1.030 Urine Protein NEG NEG Urine Glucose (UA) NEG NEG Urine Ketones NEG NEG Urine Occult Blood NEG NEG Urine Nitrite NEG NEG Urine Bilirubin NEG NEG Urine Urobilinogen NEG NEG Urine Leukocyte Esterase NEG NEG Urine WBC (Auto) 0 0-5 /hpf Urine RBC (Auto) 0-4 0-4 /hpf Urine Hyaline Casts (Auto) 1-5 0-5 /lpf Urine Epithelial Cells (Auto) 5-10 0-5 /lpf Urine Bacteria (Auto) NEG NEG Magnesium Level 2.1 1.8-2.4 mg/dl Creatine Kinase MB 1.9 0.5-3.6 ng/ml Creatine Kinase MB Ratio 0-3.0 Triglycerides Level 87 0-150 mg/dl Cholesterol Level 132 0-200 mg/dl HDL Cholesterol 43 mg/dl LDL Cholesterol, Calculated 72 mg/dl VLDL Cholesterol, Calculated 17 mg/dl Cholesterol/HDL Ratio 3.1 Test 02/23/18 10:00 02/23/18 11:02 Range/Units Creatine Kinase MB Ratio 0-3.0 Creatine Kinase MB 1.2 0.5-3.6 ng/ml Troponin I < 0.015 0-0.045 ng/ml
[2018-02-23] MEDS ORDERED: POLYETHYLENE (MIRALAX) 17 GM PACK PO ONE (08:00)
[2018-02-23] MEDS ORDERED: FUROSEMIDE 20 MG TAB PO SCH (09:00)
[2018-02-23] MEDS ORDERED: ALLOPURINOL 300 MG TAB PO SCH (09:00)
[2018-02-23] MEDS ORDERED: FUROSEMIDE 40 MG TAB PO SCH (09:00)
[2018-02-23] MEDS ORDERED: DOCUSATE SODIUM/SENNA 50/8.6MG TAB PO SCH (09:00)
[2018-02-23 11:33] LABS: CKMB 1.2 ng/ml (0.5-3.6)
--- NOTE | 2018-02-23 11:46 | ECHOCARDIOGRAM REPORT ---
*NOTICE TO RECEIVING [employer] AGENCY This information is strictly Confidential and protected under [place] law. [place] law prohibits you from making any further disclosure of this information unless further disclosure is expressly permitted by the written consent of the person to whom it pertains or is authorized by law. A general authorization for the release of medical or other information is not sufficient for this purpose. Hospital accepts no responsibility if the information is made available to any other person, INCLUDING THE PATIENT. Interpretation Summary * Name: CYNTHIA YEPEZ Study Date: 02/23/2018 06:30 AM BP: 128/77 mmHg * Patient Location: [facility] HR: 68 * : 1935 (M/d/yyyy) Gender: Male Height: 69 in * Age: 82 yrs Ethnicity: CA Weight: 145 lb * Ordering Physician: Mukesh Rodriguez * Referring Physician: Self, Referred * Performed By: Mariajose Chou RCS * * Reason For Study: Chest Pain * BSA: 1.8 m2 * -- Conclusions -- * The left ventricle is normal in size. * There is moderate concentric left ventricular hypertrophy. * Left ventricular systolic function is normal. * The left ventricular wall motion is normal. * Ejection Fraction = 60-65%. * Grade I diastolic dysfunction, (abnormal relaxation pattern). * The right ventricle is moderately dilated. * The right ventricular systolic function is borderline reduced. * Aortic valve leaflets are moderately calcified * Mild to moderate valvular aortic stenosis. * There is a very small apical and lateral pericardial effusion of non-hemodynamic significance Procedure Details * A complete two-dimensional transthoracic echocardiogram was performed (2D, M-mode, Doppler and color flow Doppler). * The study was technically difficult. Left Ventricle * The left ventricle is normal in size. * There is moderate concentric left ventricular hypertrophy. * Left ventricular systolic function is normal. * Ejection Fraction = 60-65%. * The left ventricular wall motion is normal. Right Ventricle * The right ventricle is moderately dilated. * There is mild right ventricular hypertrophy. * The right ventricular systolic function is borderline reduced. Atria * The left atrium is mildly dilated. * Right atrial size is normal. * No ASD detected; PFO is not assessed. Mitral Valve * The mitral valve leaflets are moderately thickened with mild annular calcification * There is no mitral valve stenosis. * There is trace mitral regurgitation. Tricuspid Valve * The tricuspid valve is not well visualized, but is grossly normal. * There is no tricuspid stenosis. * There is trace tricuspid regurgitation. Aortic Valve * The aortic valve is trileaflet. * Aortic valve leaflets are moderately calcified * Mild to moderate valvular aortic stenosis. * No aortic regurgitation is present. Pulmonic Valve * The pulmonic valve is not well visualized. Great Vessels * The aortic root is normal size. Pericardium/Pleural * There is a very small apical and lateral pericardial effusion of non-hemodynamic significance Left Ventricular Diastolic Function * Grade I diastolic dysfunction, (abnormal relaxation pattern). MMode 2D Measurements and Calculations IVSd 1.1 cm IVSs 1.3 cm LVIDd 4.8 cm LVIDs 3.0 cm LVPWd 1.1 cm LVPWs 1.3 cm IVS/LVPW 1.0 FS 37.7 % EDV(Teich) 107.0 ml ESV(Teich) 34.6 ml EF(Teich) 67.7 % EDV(cubed) 109.9 ml ESV(cubed) 26.6 ml EF(cubed) 75.8 % % IVS thick 17.7 % % LVPW thick 22.6 % LV mass(C)d 186.4 grams LV mass(C)dI 103.5 grams/m\S\2 LV mass(C)s 121.5 grams LV mass(C)sI 67.4 grams/m\S\2 SV(Teich) 72.4 ml SI(Teich) 40.2 ml/m\S\2 SV(cubed) 83.2 ml SI(cubed) 46.2 ml/m\S\2 Ao root diam 3.7 cm Ao root area 10.9 cm\S\2 LA dimension 4.2 cm LA/Ao 1.1 LVOT diam 2.0 cm LVOT area 3.3 cm\S\2 LVAd ap4 35.6 cm\S\2 LVLd ap4 9.7 cm EDV(MOD-sp4) 106.0 ml EDV(sp4-el) 110.4 ml LVAs ap4 16.3 cm\S\2 LVLs ap4 7.2 cm ESV(MOD-sp4) 34.1 ml ESV(sp4-el) 31.6 ml EF(MOD-sp4) 67.8 % EF(sp4-el) 71.4 % SV(MOD-sp4) 71.9 ml SI(MOD-sp4) 39.9 ml/m\S\2 SV(sp4-el) 78.7 ml SI(sp4-el) 43.7 ml/m\S\2 Doppler Measurements and Calculations MV E max snow 48.5 cm/sec MV A max snow 79.8 cm/sec MV E/A 0.61 MV P1/2t max snow 57.4 cm/sec MV P1/2t 97.2 msec MVA(P1/2t) 2.3 cm\S\2 MV dec slope 172.9 cm/sec\S\2 MV dec time 0.39 sec Ao V2 max 233.0 cm/sec Ao max PG 21.7 mmHg Ao max PG (full) 18.4 mmHg Ao V2 mean 150.7 cm/sec Ao mean PG 10.7 mmHg Ao mean PG (full) 8.8 mmHg Ao V2 VTI 47.5 cm LOUIE(I,A) 1.3 cm\S\2 LOUIE(I,D) 1.3 cm\S\2 LOUIE(V,A) 1.3 cm\S\2 LOUIE(V,D) 1.3 cm\S\2 LV V1 max PG 3.4 mmHg LV V1 mean PG 1.8 mmHg LV V1 max 91.8 cm/sec LV V1 mean 64.3 cm/sec LV V1 VTI 18.8 cm SV(Ao) 515.2 ml SI(Ao) 286.0 ml/m\S\2 SV(LVOT) 61.1 ml SI(LVOT) 33.9 ml/m\S\2 PA V2 max 125.0 cm/sec PA max PG 6.2 mmHg TR max snow 204.3 cm/sec
--- NOTE | 2018-02-23 13:34 | CARDIOLOGY CONSULTATION ---
DATE OF CONSULTATION: 02/23/2018 Cardiology consultation. REFERRING PHYSICIAN: Dr. Sears. INDICATIONS: Abdominal pain, chest discomfort. HISTORY OF PRESENT ILLNESS: Patient is an 82-year-old male followed by [facility] with patient recent reestablishing with Dr. Hyman. His past medical history per reports and notes is notable for prior coronary artery disease with coronary intervention x2 with a history of preserved LV systolic function, past diastolic dysfunction, atherosclerotic peripheral vascular disease status post percutaneous intervention of abdominal aortic aneurysm with stent graft placement in 05/2017, history of severe chronic obstructive lung disease, O2 dependent, history of hypertension, hyperlipidemia, past stroke, chronic pulmonary hypertension. Patient now presents this admission noting having developed left upper quadrant abdominal pain, sharp and jabbing, lasting 5 minutes then resolving intermittently throughout the day of admission. Symptoms were not responsive to activity and worse when bending or squatting. He noted slight dizziness. Noted no specific chest pain. Notes no tachypalpitations, syncope or near syncope, orthopnea, PND or peripheral edema. Notes no abdominal pain in the past. Notes no back pain or discomfort. Denies headache or specific visual change, notes no changes in medication, he has been taking therapies as prescribed. He has noted no further pain since admission, cardiac enzymes have been negative x4. EKG reveals no evolution in ST segment changes. Echocardiogram demonstrates preserved LV systolic function. REVIEW OF SYSTEMS: Otherwise negative. ALLERGIES: MOXIFLOXACIN. MEDICATIONS: Prior to hospitalization were albuterol inhaler, allopurinol 300 mg p.o. daily, aspirin 81 mg daily, clonidine 0.2 mg b.i.d., furosemide 20 mg p.o. every day and 40 mg p.o. every day for a total of 60, oxygen 2-1/2 liters nasal cannula, DuoNeb nebulizers, levothyroxine 50 mcg per day, lisinopril 5 mg per day, metoprolol tartrate 50 mg b.i.d., pravastatin 40 mg at bedtime, Flomax 0.4 mg q.p.m. 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 FAMILY HISTORY: Not notable for cardiac disease. SOCIAL HISTORY: Patient resides in [place]. 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 He is a prior smoker but none recently. Uses no significant alcoholic beverages. PHYSICAL EXAMINATION: VITAL SIGNS: Heart rate is 60, blood pressure is 127/75. HEENT: Normocephalic and atraumatic. Nares without discharge. Throat was clear. NECK: Supple without thyromegaly, lymphadenopathy, JVD. There are no carotid bruits audible. LUNGS: Reveal markedly diminished breath sounds in all lung martinez. CARDIOVASCULAR: Regular but with very distant heart sounds. There is no audible murmur or rub. PMI is nondisplaced. ABDOMEN: Soft with minimal tenderness in left upper quadrant. There is no palpable hepatosplenomegaly, no hepatojugular reflux. EXTREMITIES: Without cyanosis or clubbing. There is no peripheral edema. There are intact distal pulses of 2/4 dorsalis pedis and posterior tibialis. DATA: EKG on presentation revealed sinus rhythm with right bundle-branch block without evidence of acute evolutionary changes. Serial EKGs have demonstrated the same. Echocardiogram reveals a small apical and lateral pericardial effusion with normal LV systolic function, moderate left ventricular hypertrophy and no wall motion abnormalities. There is [id number] aortic stenosis present. Troponins are negative x4 at less than 0.015. Cholesterol is 132 with an LDL of 72 and HDL of 43. Sodium is 141, potassium is 3.5, chloride is 104, bicarbonate is 34, BUN is 23, creatinine is 1.4, calcium is 8.5. Abdominal CT demonstrated no evidence of disruption of aortoiliac stent graft per report and make no mention of leak. There is cholelithiasis, no acute and mild atelectasis in left chest with emphysematous changes. IMPRESSION: [id number] presents with atypical symptoms for angina with cardiac risk factors of hypertension, hyperlipidemia, known coronary disease and vascular disease. Cardiac enzymes and EKGs reflect no acute ischemia. RECOMMENDATIONS: We will continue usual medications and reestablish patient with primary retail store manager regarding outpatient evaluation and followup. Patient does note some respiratory issues. We have low threshold for investigating further, will be available for questions.
[2018-02-23] MEDS ORDERED: POTASSIUM CHLORIDE 10 MEQ TABCR PO ONE (15:00)
[2018-02-23] MEDS ORDERED: MRLP17X PO (16:27)
[2018-02-23] MEDS ORDERED: SENN8.6T7 PO (16:27)
--- NOTE | 2018-02-23 16:28 | Discharge Instructions ---
Discharge Instructions Date of Service Feb 23, 2018. Admission Reason for Admission: Chest Pain Discharge Discharge Diagnosis / Problem: Atypical Chest Pain, Constipation Discharge Goals Goal(s): Decrease discomfort, Improve function Activity Recommendations Activity Limitations: resume your previous activity Exercise/Sports Limitations: as tolerated . Instructions / Follow-Up Instructions / Follow-Up Follow up with your PCP in 1 week as advised Follow up with your Director Medicare Sales in 2-3 weeks as advised Follow up with your Epilepsy Physician to evaluate for chronic dysphagia Seek immediate medical attention if your symptoms reoccur or worsen Current Hospital Diet Patient's current hospital diet: AHA Diet (Heart Healthy) Discharge Diet Recommended Diet: AHA Diet (Heart Healthy) Diet Texture: Dental Soft (bite-sized) (Slippery diet) Pending Studies Studies pending at discharge: no Laboratory Results Lipid Panel Test 02/23/18 04:15 Range/Units Triglycerides Level 87 0-150 mg/dl Cholesterol Level 132 0-200 mg/dl HDL Cholesterol 43 mg/dl Cholesterol/HDL Ratio 3.1 LDL Cholesterol, Calculated 72 mg/dl Medical Emergencies . Who to Call and When: Medical Emergencies: If at any time you feel your situation is an emergency, please call 911 immediately. . Non-Emergent Contact Non-Emergency issues call your: Primary Care Provider, Director Medicare Sales Call Non-Emergent contact if: you have a fever, your pain is not controlled, your pain is worsening, your pain is unusual for you, your pain is concerning you, you have any medication questions Seek immediate medical attention if your symptoms reoccur or worsen . . "Provider Documentation" section prepared by Kade Sears. .
--- NOTE | 2018-02-23 16:31 | Discharge Summary ---
Discharge Summary Date of Service Feb 23, 2018. Discharge Summary Admission Date: Feb 22, 2018 at 20:49 Discharge Date: Feb 23, 2018 Principal Diagnosis: Atypical Chest Pain, Constipation Secondary Diagnoses/Problems: chronic dysphagia Procedures: CT ABD: 1. There are no acute infectious or inflammatory findings in the abdomen or pelvis. 2. Cholelithiasis without CT evidence of acute cholecystitis. 3. Moderate constipation. No bowel obstruction is seen. 4. Cardiomegaly and advanced emphysema. 5. There has been aortobiiliac stent graft repair of an abdominal aortic aneurysm. The residual aneurysm sac measures 5.8 x 5.5 cm. 6. Bibasilar airspace opacities likely represent scarring/atelectasis. Correlate clinically for evidence of a superimposed infectious/inflammatory pneumonitis. 7. Moderate to advanced colonic diverticulosis without CT evidence of acute diverticulitis. 8. Nonobstructing left renal calculus. 9. Prostatomegaly with evidence of chronic bladder outlet obstruction. 10. Additional findings as above. CXR: 1. Cardiomegaly and advanced emphysema. 2. Linear airspace opacities are present at the right lung base, likely representing scarring/atelectasis. Correlate clinically for evidence of pneumonia/aspiration pneumonitis. ECHO: * The left ventricle is normal in size. * There is moderate concentric left ventricular hypertrophy. * Left ventricular systolic function is normal. * The left ventricular wall motion is normal. * Ejection Fraction = 60-65%. * Grade I diastolic dysfunction, (abnormal relaxation pattern). * The right ventricle is moderately dilated. * The right ventricular systolic function is borderline reduced. * Aortic valve leaflets are moderately calcified * Mild to moderate valvular aortic stenosis. * There is a very small apical and lateral pericardial effusion of non- hemodynamic significance Consultations: Cardiology Pending Studies/Follow-Up: Follow up with your PCP in 1 week as advised Follow up with your Principal Cloud Architect in 2-3 weeks as advised Seek immediate medical attention if your symptoms reoccur or worsen Medication Reconciliation New Medications: Polyethylene (Miralax) 17 Gm Pow 17 GM PO DAILY PRN for Constipation for 7 Days, #7 EA Sennosides-Docusate Sodium (Senokot S) 1 Tab Tab 1 TAB PO BID PRN for constipation for 10 Days, #20 TAB Continued Medications: Albuterol Sulfate (Proair Respiclick) 108 Mcg/Act Aer 2 PUFFS INH Q2H PRN for Shortness of Breath Allopurinol (Zyloprim) 300 Mg Tab 300 MG PO QAM, TAB Aspirin (Aspirin Ec) 81 Mg Tab 81 MG PO HS Clonidine Hcl (Catapres) 0.2 Mg Tab 0.2 MG PO BID, TAB Fluticasone Prop/Salmeterol (Advair Diskus 500/50 60 Dose) 1 Ea Aerp 1 PUFFS INH BID for 30 Days, #1 INHALER 5 Refills Furosemide (Furosemide) 20 Mg Tab 20 MG PO QAM Furosemide (Furosemide) 40 Mg Tab 40 MG PO QAM Home O2 Therapy (Oxygen) Gas 2 LITERS NA DIRECTED, BTL USE 2 L WHILE AT REST, USE 3 L WHILE AMBULATING. Ipratropium-Albuterol (Combivent Respimat) 1 Aer Aer 1 PUFFS INH QID PRN for Wheezing, INH MAY USE IN PLACE OF DUONEB. Ipratropium-Albuterol (Duoneb) 3 Ml Nebu 1 TREATMENT INH DIRECTED PRN for SOB/Wheezing, INHA USE 4 X DAY-EVERY 6 HOURS. MAY USE EVERY 4 HOURS, IF NEEDED. OR MAY USE COMBIVENT IN PLACE OF DUONEB. Levothyroxine Sodium (Synthroid) 50 Mcg Tab 50 MCG PO QAM, TAB Lisinopril (Prinivil) 5 Mg Tab 5 MG PO PM, TAB Metoprolol Tartrate (Lopressor) (Lopressor) 50 Mg Tab 50 MG PO BID, #180 Pravastatin Sodium (Pravastatin Sodium) 40 Mg Tab 40 MG PO HS Tamsulosin Hcl (Flomax) 0.4 Mg Cap 0.4 MG PO PM, CAP Admission Information HPI (per Admitting provider): CHIEF COMPLAINT: Chest pain. HISTORY OF PRESENT ILLNESS: This is an 82-year-old male with past medical history significant for COPD, abdominal aortic aneurysm status post percutaneous repair, history of asthma, BPH, CAD status post stent, chronic diastolic CHF, chronic respiratory failure, gout, presents with chest pain. The patient since yesterday is having chest pain, lower part of the chest, lower left-sided chest pressure like, sharp chest pains, on and off 8/10 in severity. The pain is more when he is bending down and he is also feeling dizzy. Denies any nausea. Denies any sweating. Denies any headaches, no blurred vision, no earache, runny nose, no sore throat. He says he has some difficulties with swallowing, sometimes he is feeling some food is stuck in his throat. He has chronic shortness of breath and chronic cough, no abdominal pain. Normal bladder movements, somewhat constipated. No blood in the stools, no blood in the urine. Once in a while, he gets ankle edema, he takes p.o. Lasix. Lives alone and family lives close by. Physical Exam (per Admitting): PHYSICAL EXAMINATION: GENERAL: The patient is of moderate build, not in distress. VITAL SIGNS: Temperature 36.8, pulse 78, respiratory rate 20, blood pressure 173/109, oxygen 93% on 2 liters. HEENT: No pallor. Pupils equal, round, and react to light. NECK: No JVD, no neck masses, no carotid bruits. CARDIOVASCULAR: S1, S2 heard, regular rate and rhythm, no murmur, no gallop. RESPIRATORY SYSTEM: Normal AP diameter. No accessory muscle use. No wheezing, no crackles. ABDOMEN: Soft, bowel sounds present. Nontender. No distention. CENTRAL NERVOUS SYSTEM: Cranial nerves II-XII grossly intact. Nonfocal. EXTREMITIES: No edema, no erythema. Hospital Course Patient is an 82 yr male who presents with LUQ sharp, intermittent abdominal pain radiating up to left chest. Abdominal Pain: Constipation CT ABD: no acute infectious or inflammatory findings, moderate constipation Continue bowel regimen Atypical Chest Pain r/o ACS: H/O CAD S/P stent EKG: no signs of acute Ischemia ECHO:pending Appreciate Cardiology Input continue aspirin, metoprolol, statins ECHO as below Advised to follow up with Primary Principal Cloud Architect as outpatient Chronic dysphagia: Speech and swallow eval May need GI eval as outpatient Dental Soft, slippery diet COPD Chronic oxygen dependency: 2.5 liters at baseline no signs of exacerbation continue inhalers Chronic diastolic CHF: No signs of decompensation Continue Lasix, lisinopril, BB monitor H/O AAA: S/P repair Gout: Continue allopurinol HTN: stable continue current meds HLP: continue statins BPH: continue Flomax Hypothyroidism: continue levothyroxine Hypokalemia: replace and monitor DVT Px: SCDs Code Status: Full code. Disposition: Plan to discharge home today Follow up with your PCP in 1 week as advised Follow up with your Principal Cloud Architect in 2-3 weeks as advised Seek immediate medical attention if your symptoms reoccur or worsen PROCEDURES: CT ABD: 1. There are no acute infectious or inflammatory findings in the abdomen or pelvis. 2. Cholelithiasis without CT evidence of acute cholecystitis. 3. Moderate constipation. No bowel obstruction is seen. 4. Cardiomegaly and advanced emphysema. 5. There has been aortobiiliac stent graft repair of an abdominal aortic aneurysm. The residual aneurysm sac measures 5.8 x 5.5 cm. 6. Bibasilar airspace opacities likely represent scarring/atelectasis. Correlate clinically for evidence of a superimposed infectious/inflammatory pneumonitis. 7. Moderate to advanced colonic diverticulosis without CT evidence of acute diverticulitis. 8. Nonobstructing left renal calculus. 9. Prostatomegaly with evidence of chronic bladder outlet obstruction. 10. Additional findings as above. ECHO: * The left ventricle is normal in size. * There is moderate concentric left ventricular hypertrophy. * Left ventricular systolic function is normal. * The left ventricular wall motion is normal. * Ejection Fraction = 60-65%. * Grade I diastolic dysfunction, (abnormal relaxation pattern). * The right ventricle is moderately dilated. * The right ventricular systolic function is borderline reduced. * Aortic valve leaflets are moderately calcified * Mild to moderate valvular aortic stenosis. * There is a very small apical and lateral pericardial effusion of non- hemodynamic significance Total time spent on discharge = This includes examination of the patient, discharge planning, medication reconciliation, and communication with other providers. Discharge Instructions Discharge Instructions Date of Service Feb 23, 2018. Admission Reason for Admission: Chest Pain Discharge Discharge Diagnosis / Problem: Atypical Chest Pain, Constipation Discharge Goals Goal(s): Decrease discomfort, Improve function Activity Recommendations Activity Limitations: resume your previous activity Exercise/Sports Limitations: as tolerated . Instructions / Follow-Up Instructions / Follow-Up Follow up with your PCP in 1 week as advised Follow up with your Principal Cloud Architect in 2-3 weeks as advised Follow up with your Superintendent [employer] Distribution as advised Seek immediate medical attention if your symptoms reoccur or worsen Current Hospital Diet Patient's current hospital diet: AHA Diet (Heart Healthy) Discharge Diet Recommended Diet: AHA Diet (Heart Healthy) Pending Studies Studies pending at discharge: no Laboratory Results Lipid Panel Test 02/23/18 04:15 Range/Units Triglycerides Level 87 0-150 mg/dl Cholesterol Level 132 0-200 mg/dl HDL Cholesterol 43 mg/dl Cholesterol/HDL Ratio 3.1 LDL Cholesterol, Calculated 72 mg/dl Medical Emergencies . Who to Call and When: Medical Emergencies: If at any time you feel your situation is an emergency, please call 911 immediately. . Non-Emergent Contact Non-Emergency issues call your: Primary Care Provider, Principal Cloud Architect Call Non-Emergent contact if: you have a fever, your pain is not controlled, your pain is worsening, your pain is unusual for you, your pain is concerning you, you have any medication questions Seek immediate medical attention if your symptoms reoccur or worsen . . "Provider Documentation" section prepared by Kade Sears. . <Electronically signed by Kade Sears MD> Signed: 02/23/18 1628 Signed: The status of this report is Signed * If report status is Draft, the document has not been finalized by the responsible provider.
== END 2018-02-23 19:00 | disposition home or self-care (01) ==
LOC: C.EDB 17:37 → UNDOADMOB 20:49 → C.2E 20:49 → EDBEDREQ 21:01 → ENRESERV 21:06
PROVIDERS: ADMIT Internal Medicine; ATTEND Internal Medicine
DX: R07.89 Other chest pain (principal); E87.6 Hypokalemia; E87.1 Hypo-osmolality and hyponatremia; K59.00 Constipation, unspecified; R13.10 Dysphagia, unspecified; J44.9 Chronic obstructive pulmonary disease, unspecified; N40.0 Benign prostatic hyperplasia without lower urinary tract symptoms; I50.32 Chronic diastolic (congestive) heart failure; M10.9 Gout, unspecified; E03.9 Hypothyroidism, unspecified; Z88.1 Allergy status to other antibiotic agents; Z99.81 Dependence on supplemental oxygen; Z79.82 Long term (current) use of aspirin; Z86.14 Personal history of Methicillin resistant Staphylococcus aureus infection; Z85.828 Personal history of other malignant neoplasm of skin; Z98.61 Coronary angioplasty status; Z96.659 Presence of unspecified artificial knee joint; Z83.3 Family history of diabetes mellitus; Z82.49 Family history of ischemic heart disease and other diseases of the circulatory system; Z84.1 Family history of disorders of kidney and ureter; Z83.6 Family history of other diseases of the respiratory system

== ENCOUNTER 2018-12-05 19:06 | Inpatient (IN) ==
[2018-12-05] MEDS ORDERED: MAGNESIUM SULFATE / D5W 1 GM/100 ML BAG IV ONE (19:28)
[2018-12-05] MEDS ORDERED: ALBUT/IPRATROP 3MG/0.5MG NEB 3 ML VIAL NEB STA ×2 (19:28→20:35)
[2018-12-05] MEDS ORDERED: methylPREDNISolone 125 MG/2 ML VIAL IV STA (19:28)
[2018-12-05] MEDS ORDERED: SODIUM CHLORIDE 0.9% 1000ML 1,000 ML IV ONE (19:29)
[2018-12-05 19:34] LABS: Appearance Urine Clear (Clear); Bilirubin Urine Negative (Negative); Color Urine Yellow; Glucose Urine UA Negative (Negative); Ketones Urine Negative (Negative); Leukocyte Esterase Urine Negative (Negative); Nitrite Urine Negative (Negative); Protein Urine Negative (Negative); Specific Gravity Urine 1.018 (1.000-1.030); Urobilinogen Urine Negative (Negative); pH Urine 5.5 (4.5-7.5)
--- NOTE | 2018-12-05 19:36 | XRay Report ---
SINGLE VIEW CHEST CLINICAL HISTORY: Dyspnea. FINDINGS: 2 AP, portable, upright chest radiographs are compared to study dated 02/22/2018 and correla mignon with chest CT dated 07/07/2018. The examination is degraded by portable technique and patient rota tion. The heart is top normal for projection, noting atherosclerotic calcification of the thoracic a joey. Advanced emphysematous change is similar to previous. Advanced emphysema and chronic interstiti al thickening are similar to previous. Apical bullous changes observed. There is bibasilar scarring/a telectasis, similar to previous. No airspace consolidation is seen typical for pneumonia and no large pleural effusion is identified. No pneumothorax is seen. The skeletal structures are osteopenic. The re are healed right posterior rib fractures. IMPRESSION: Advanced emphysematous change with no acute cardiopulmonary abnormality. Electronically signed by: Neville Silva M.D. 12/05/2018 7:35 PM
[2018-12-05 19:48] LABS: Basophils # (auto) 0.02 K/uL (0-0.2); Basophils % (auto) 0.2 %; Eosinophils # (auto) 0.39 K/uL (0-0.5); Eosinophils % (auto) 4.2 %; Hematocrit (blood only) 44.9 % (42-52); Hemoglobin 14.8 g/dL (14.0-18.0); Immature Granulocytes # (auto) 0.02 K/uL (0.00-0.02); Immature Granulocytes % (auto) 0.2 %; Lymphocytes # (auto) 1.46 K/uL (1.2-3.4); Lymphocytes % (auto) 15.9 %; Mean Corpuscular Volume 96.6 fL (80-100); Mean Platelet Volume 9.9 fL (7.4-10.4); Monocytes # (auto) 0.77 K/uL (0.11-0.59); Monocytes % (auto) 8.4 %; Neutrophils # (auto) 6.53 K/uL (1.4-6.5); Neutrophils % (auto) 71.1 %; Platelet Count 194 K/uL (130-400); RDW Coefficient of Variation 13.6 % (11.5-14.5); RDW Standard Deviation 47.4 fL (36.4-46.3); Red Blood Count 4.65 M/uL (4.7-6.1); White Blood Count 9.19 K/uL (4.8-10.8)
[2018-12-05 19:50] LABS: Base Excess VBG 9.1 mEq/L; HCO3 VBG 37 mmol/L; PCO2 VBG 64 mmHg (38-50); PO2 VBG 23 mmHg; pH VBG 7.38 (7.36-7.41)
[2018-12-05 19:51] LABS: Oxygen Saturation VBG < 60.0 %
[2018-12-05 19:55] LABS: iSTAT Hemoglobin 15.3 g/dl (14.0-18.0); iSTAT Ionized Calcium 1.12 mmol/l (1.12-1.32)
[2018-12-05 20:03] LABS: Partial Thromboplastin Ratio 1.2; Partial Thromboplastin Time 30.6 Seconds (21.0-31.0); Prothrombin Time 10.2 Seconds (9.0-12.0)
[2018-12-05 20:05] LABS: Alanine Aminotransferase 15 U/L (12-78); Aspartate Aminotransferase 19 U/L (15-37); Blood Urea Nitrogen 26 mg/dl (7-18); Carbon Dioxide 37 mmol/L (21-32); Chloride 98 mmol/L (98-107); Est GFR (African American) 41.4; Est GFR (Non-African American) 35.7; Glucose 100 mg/dl (70-99); Potassium 3.6 mmol/L (3.5-5.1); Sodium 139 mmol/L (136-145)
[2018-12-05 20:08] LABS: Albumin Globulin Ratio 1.1 (0.9-2); Alkaline Phosphatase 56 U/L (45-117); Bilirubin,Total 0.5 mg/dl (0.2-1); Globulin 3.7 gm/dl (2.5-4.0); Total Protein 7.7 gm/dl (6.4-8.2)
[2018-12-05 20:20] LABS: Influenza A virus by PCR Neg for Influ A (Neg); Influenza B virus by PCR Neg for Influ B (Neg)
[2018-12-05] MEDS ORDERED: MoRPHine SULFATE 4 MG/ML 1 ML CARP\\VIAL IV STA (20:35)
[2018-12-05] MEDS ORDERED: IOVERSOL 100ml IV PRN (20:59)
--- NOTE | 2018-12-05 21:25 | CT Scan Report ---
CT ANGIOGRAM OF THE CHEST CLINICAL HISTORY: Dyspnea. COMPARISON STUDY: Chest x-ray dated 12/05/2018. Chest CT scans dated 10/31/2013, 06/18/2016, and 8. TECHNIQUE: Following the IV administration of 93 cc of Optiray 320, CT angiogram of the chest was per formed from the upper abdomen to the thoracic inlet utilizing the pulmonary embolus protocol. Images are reviewed in the axial, sagittal, and coronal planes. 3-D MIPS images are created and assessed. IV contrast was administered without complication. A dose lowering technique was utilized adhering to the principles of ALARA. The examination is degraded by motion artifact. CT DOSE: 360.15 mGy.cm FINDINGS: Thyroid: Imaged portions of the thyroid gland are atrophic and heterogeneous in attenuation. Thoracic aorta: There is mild ectasia of the ascending thoracic aorta which measures up to 3.7 cm nohelia meter. The remainder of the thoracic aorta is normal in caliber. There is advanced atherosclerotic ca lcification, and the arch demonstrates standard 3-vessel anatomy. No dissection is seen. Pulmonary vasculature: The pulmonary trunk is normal in caliber. There are no filling defects identif ied in main, lobar, or proximal segmental pulmonary branches to suggest pulmonary embolus. Evaluation of the peripheral vessels is degraded by motion artifact. Heart: The heart is enlarged and without pericardial effusion. The coronary arteries are densely calc ified. Lungs and pleural spaces: Evaluation of lung parenchyma is modestly degraded by motion artifact. Adva nced emphysema is similar to previous. Apical bullous change is noted. There is bibasilar scarring/at electasis. Patchy airspace opacities are present at both lung bases. No pleural effusion is identifie d. A 2.5 cm ovoid density in the lingula adjacent to the major fissure seen on image #71 is been pres ent dating back to 2013 and likely represents scarring/atelectasis. A 6 mm right upper lobe nodule on image #146 has also been present dating back to 2013. Peribronchial thickening is noted in the lower lobes. Fluid/debris is present within the lower lobe airways. Mediastinum: There is no mediastinal lymphadenopathy. Cata: Mildly enlarged right hilar nodes measure up to 15 mm in short axis. Axillae: There is no axillary lymphadenopathy. Upper abdomen: Partially visualized upper abdominal viscera is grossly unremarkable. Skeletal structures: The skeletal structures are osteopenic. Degenerative change is noted throughout the thoracic spine and in the shoulders. No lytic or blastic bony lesions are seen. There are healed right-sided rib fractures. IMPRESSION: 1. There is no evidence of pulmonary embolus in the main, lobar, or proximal segmental pulmonary cyndi morgan. 2. Cardiomegaly and advanced emphysema. 3. There are increasing dependent patchy airspace opacities present at both lung bases when compared to 07/07/2018. Additionally, there is peribronchial thickening in the lower lobes with fluid/secretion s in the lower lobe airways. Correlate clinically for evidence of pneumonia/aspiration pneumonitis. 4. No pleural effusion is identified. 5. Additional chronic parenchymal changes and nodularity have not significantly changed dating back 2013. 6. Additional findings as above. Electronically signed by: Neville Silva M.D. 12/05/2018 9:24 PM
[2018-12-05] MEDS ORDERED: LEVOFLOXACIN/D5W 750 MG/150 ML BAG IV STA (22:06)
[2018-12-06] MEDS ORDERED: NITROGLYCERIN SL 0.4 MG/TAB TAB SL PRN (00:18)
[2018-12-06] MEDS ORDERED: ONDANSETRON INJ 2 MG/ML 2 ML VIAL IV PRN (00:18)
[2018-12-06] MEDS ORDERED: ACETAMINOPHEN 325 MG TAB PO PRN (00:18)
[2018-12-06] MEDS ORDERED: ALUMINUM/MAGNESIUM SUSP 30 ML UDC PO PRN (00:18)
[2018-12-06] MEDS ORDERED: AMPICILLIN/SULBACTAM CONSULT ACTIVE PRN (00:43)
--- NOTE | 2018-12-06 01:04 | History and Physical Report ---
DATE OF ADMISSION: 12/05/2018 CHIEF COMPLAINT: Shortness of breath and cough. HISTORY OF PRESENT ILLNESS: This is an 83-year-old male with past medical history significant for COPD , chronic respiratory failure on home oxygen 2.5 L 24x7, abdominal aortic aneurysm status post percutaneous repair, history of asthma, CAD status post stent, chronic diastolic CHF, and gout, presents with shortness of breath and cough since last few days, bringing up whitish yellow phlegm. Denies fever, he also had some pain in t the neck and radiating to the back. Neck pain is gone after the pain medication in the ER. Denies any headache. There is some reddish lesion on the right upper lid, which is slightly swollen but he is refusing to follow with ophthalmology as per son, but no blurred vision. No runny nose, no sore throat. He is supposed to be on soft diet as per the speech recommendation on last admission, but patient is eating regular food. He says he swallows okay, once in a while having some difficulty. No nausea, no vomiting, no abdominal pain. Normal bowel and bladder movements. Appetite is okay. Currently, resting comfortably and hemodynamically stable. Received steroids and nebs in the ER. ALLERGIES: MOXIFLOXACIN. PAST MEDICAL HISTORY: As mentioned above, also significant CVA, hypertension, hypothyroidism, hyperlipidemia, pulmonary hypertension, squamous cell carcinoma of the lip. PAST SURGICAL HISTORY: Significant for AAA percutaneous repair, cardiac catheterization, and stent placement, status post knee replacement. FAMILY HISTORY: Noncontributory. SOCIAL HISTORY: Former smoker. Lives alone. Family lives close by. Alcoholism occasional. REVIEW OF SYMPTOMS: As per HPI. Rest of review of symptoms negative. MEDICATIONS: The patient is on Advair, Lasix, oxygen, Synthroid, lisinopril, Lopressor, pravastatin, Flomax, albuterol, Combivent, DuoNeb, enalapril, aspirin, and clonidine. PHYSICAL EXAMINATION: GENERAL: The patient is alert and oriented, not in acute distress. VITAL SIGNS: Temperature 36.4, pulse 105, respiratory rate 30s, blood pressure 120/75, oxygen 82% on room air. HEENT: No pallor, no icterus. Pupils equal, round, and reactive to light. positive icterus. Erythematous changes on the right upper lid. NECK: No JVD, no carotid bruit. No neck masses. CARDIOVASCULAR: S1, S2 heard, regular rate and rhythm, no murmur, no gallop. RESPIRATORY SYSTEM: Bilaterally diminished breath sounds. No wheezing, no crackles. ABDOMEN: Soft, bowel sounds present. Nontender. No distention. CENTRAL NERVOUS SYSTEM: Cranial nerves II-XII grossly intact. Nonfocal. EXTREMITIES: Mild pedal edema, no erythema. LABS: WBC 9.1, hemoglobin 14.8, hematocrit 44.9, platelets 194. PT 10.2, INR 1, APTT 30.6. Point of care D-dimer greater than 450. Sodium 139, potassium 3.6, chloride 198, bicarbonate 37, BUN 26, creatinine 1.74, serum glucose 100, calcium 9, total bilirubin 0.5, AST 19, ALT 15, alkaline phosphatase is 56. Urinalysis negative. Influenza A and B negative. CTA of the chest, no PE, increased dependent patchy airspace opacities present in both lung bases, peribronchial thickening of the lower lobe. There is fluid secretion in the lower lobe airway, evidence of pneumonia and aspiration pneumonitis. No pleural effusion identified. EKG: Normal sinus rhythm with rate of 79. Right bundle branch block, no significant change was found. ASSESSMENT AND PLAN: This is an 83-year-old male who presents due to chronic obstructive pulmonary disease exacerbation and possible aspiration pneumonitis. 1. Chronic obstructive pulmonary disease exacerbation. We will treat with IV Solu-Medrol, nebs around the clock and p.r.n. home inhalers. Chronic respiratory failure sfrom copd. Continue home oxygen. We will monitor. 2. Pneumonia, possible aspiration pneumonitis. The patient history of dysphagia was seen by speech therapy at last admission 01/2018 and was recommended soft diet. The patient is not following this recommendation. He was supposed to follow with gastrointestinal but he did not follow up. CAT scan is showing possible pneumonia versus aspiration pneumonitis. We will place an IV Unasyn and doxycycline. Follow the cultures and consult speech therapy. 3. Back pain currently resolved, we will monitor. 4. Acute kidney injury and chronic kidney disease stage III, baseline creatinine around 1.4, presently creatinine 1.7, getting fluids, hold Lasix and lisinopril and monitor the labs in morning. 5. Chronic diastolic congestive heart failure. Has mild pedal edema. Holding Lasix, getting fluids. We will also monitor for volume overload. 7. History of abdominal aortic aneurysm status post repair. 8 History of CVAon aspirin and statin. 9. BPH The patient is on Flomax. 10. Hypertension. Holding lisinopril. Continue clonidine, Lopressor. We will monitor the blood pressure. 11. Hyperlipidemia. Continue statin. 12. Gout. Continue allopurinol. 13. History of squamous cell carcinoma of the lip, surgical excision, currently having lesion in his right upper eyelid, needs to follow with dermatology or ophthalmology. 14. History of coronary artery disease status post stent placement. Currently, stable on aspirin, statin, and beta-hafsa. We will monitor. 15. History of pulmonary hypertension. 16. PAF? alicia on eliquis. 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 17. Deep vein thrombosis prophylaxis. on eliquis DISPOSITION: Closely monitoring in tele floor. Level I full code. MTDD
[2018-12-06] MEDS: SODIUM CHLORIDE 0.9% 1000ML 1,000 ML IV SCH ×2 (01:14→15:16)
[2018-12-06] MEDS ORDERED: PATIENT'S HEIGHT AND/OR WEIGHT NEEDED SCH (01:30)
[2018-12-06] MEDS: IPRATROPIUM BROMIDE NEB SOLN 0.02% 2.5 ML VIAL INH SCH ×4 (01:53→19:24)
[2018-12-06] MEDS: LEVALBUTEROL 1.25MG/0.5ML NEB INH SCH ×4 (01:53→19:24)
[2018-12-06] MEDS ORDERED: XOPENEX/ATROVENT 1.25mg/0.5MG NEB COMBO NEB SCH (02:00)
[2018-12-06] MEDS ORDERED: DOXYCYCLINE HYCLATE 100 MG in DEXTROSE 5% 100 ML IV SCH (02:00)
[2018-12-06] MEDS ORDERED: AMPICILLIN/SULBACTAM SOD 1,500 MG in 0.9 % SODIUM CHLORIDE 100 ML IV SCH (02:00)
[2018-12-06] MEDS: methylPREDNISolone 40 MG in SYRINGE 0 ML IV SCH ×3 (05:35→21:17)
[2018-12-06] MEDS: LEVOTHYROXINE SODIUM 50 MCG TABLET PO SCH (05:35)
--- NOTE | 2018-12-06 06:41 | Hospitalist Progress Note ---
Date of Service December 06, 2018 Seems no longer on lopressor and clonidine. On amlodpine, lisinopril for HTN. Will order records. Thanks. Physical Exam 2 Vital Signs (Past 24 Hours): Last Vital Signs Temp 36.9 C 12/06/18 02:54 Pulse 104 H 12/06/18 02:54 Resp 18 12/06/18 02:54 BP 107/68 12/06/18 02:54 Pulse Ox 92 12/06/18 02:54
[2018-12-06 06:45] LABS: Eosinophils # (auto) 0.01 K/uL (0-0.5); Eosinophils % (auto) 0.2 %; Hematocrit (blood only) 36.5 % (42-52); Hemoglobin 11.9 g/dL (14.0-18.0); Immature Granulocytes # (auto) 0.01 K/uL (0.00-0.02); Immature Granulocytes % (auto) 0.2 %; Lymphocytes # (auto) 0.35 K/uL (1.2-3.4); Lymphocytes % (auto) 7.7 %; Mean Corpuscular Hgb Conc 32.6 g/dL (32-36); Mean Corpuscular Volume 95.3 fL (80-100); Monocytes # (auto) 0.02 K/uL (0.11-0.59); Monocytes % (auto) 0.4 %; Neutrophils # (auto) 4.18 K/uL (1.4-6.5); Neutrophils % (auto) 91.5 %; Platelet Count 167 K/uL (130-400); RDW Coefficient of Variation 13.7 % (11.5-14.5); RDW Standard Deviation 47.5 fL (36.4-46.3); Red Blood Count 3.83 M/uL (4.7-6.1); White Blood Count 4.57 K/uL (4.8-10.8)
[2018-12-06 07:09] LABS: BUN Creatinine Ratio 13.5 (10-20); Calcium 8.3 mg/dl (8.5-10.1); Est GFR (African American) 36.8; Est GFR (Non-African American) 31.7; Potassium 3.5 mmol/L (3.5-5.1)
[2018-12-06] MEDS: AMLODIPINE BESYLATE 5 MG TAB PO SCH (08:14)
[2018-12-06] MEDS: ALLOPURINOL 300 MG TAB PO SCH (08:14)
[2018-12-06] MEDS: APIXABAN 2.5 MG TAB PO SCH ×2 (08:15→21:12)
[2018-12-06] MEDS ORDERED: AMPICILLIN/SULBACTAM SOD 3,000 MG in 0.9 % SODIUM CHLORIDE 100 ML IV SCH (08:30)
[2018-12-06] MEDS ORDERED: HEPARIN SOD 5,000 UNIT/0.5 ML VIAL SQ SCH (09:00)
[2018-12-06] MEDS ORDERED: APIXABAN 5 MG TABLET PO SCH (09:00)
--- NOTE | 2018-12-06 09:22 | Hospitalist Progress Note ---
Date of Service December 06, 2018 Subjective 83-year-old male with past medical history significant for COPD , chronic respiratory failure on home oxygen 2.5 L 24x7, abdominal aortic aneurysm status post percutaneous repair, history of asthma, CAD status post stent, chronic diastolic CHF, and gout, presents with shortness of breath and cough since last few days, bringing up whitish yellow phlegm. Denies fever, he also had some pain in the neck and radiating to the back. Neck pain is gone after the pain medication in the ER. Denies any headache. There is some reddish lesion on the right upper lid, which is slightly swollen but he is refusing to follow with ophthalmology as per son, but no blurred vision. No runny nose, no sore throat. He is supposed to be on soft diet as per the speech recommendation on last admission, but patient is eating regular food. He says he swallows okay, once in a while having some difficulty. No nausea, no vomiting, no abdominal pain. Normal bowel and bladder movements. Appetite is okay. Currently, resting comfortably and hemodynamically stable. Received steroids and nebs in the ER. ASSESSMENT AND PLAN: This is an 83-year-old male who presents due to chronic obstructive pulmonary disease exacerbation and possible aspiration pneumonitis. 1. Chronic obstructive pulmonary disease exacerbation. IV Solu-Medrol, nebs around the clock and p.r.n. home inhalers. Chronic respiratory failure from COPD , On home oxygen. 2. Pneumonia, possible aspiration pneumonitis. The patient history of dysphagia was seen by speech therapy at last admission 01/2018 and was recommended soft diet. The patient is not following this recommendation. He was supposed to follow with gastrointestinal but he did not follow up. CAT scan is showing possible pneumonia versus aspiration pneumonitis. We will replace IV Unasyn and doxycycline c Rocephin and Flagyl. 3. Back pain currently resolved, we will monitor. 4. Acute kidney injury and chronic kidney disease stage III, baseline creatinine around 1.4, hold Lasix and lisinopril and monitor the labs in morning. 5. Chronic diastolic congestive heart failure. Has mild pedal edema. Holding Lasix, getting fluids. We will also monitor for volume overload. 7. History of abdominal aortic aneurysm status post repair. 8 History of CVA on aspirin and statin. 9. BPH The patient is on Flomax. 10. Hypertension. Holding lisinopril. Continue clonidine, Lopressor. 11. Hyperlipidemia. Continue statin. 12. Gout. Continue allopurinol. 13. History of squamous cell carcinoma of the lip, surgical excision, currently having lesion in his right upper eyelid, needs to follow with dermatology or ophthalmology. 14. History of coronary artery disease status post stent placement. Currently, stable on aspirin, statin, and beta-hafsa. 15. History of pulmonary hypertension. 16. PAF? patinet on eliquis. 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 17. Deep vein thrombosis prophylaxis. on eliquis, dose reduced sec to renal fxn ROS-No Headache, No Visual Changes, No Nausea, No Vomiting, No Fever, No Chills , No Neck Pain or Stiffness, No Chest Pain, No Palpitations, + SOB, No GIBSON, No Cough, No Sputum, + Wheezing, No Abdominal Pain, No Diarrhea, No Hematemesis, No Hemoptysis, No Unexpected Weight Loss, No Flank pain, No Melena, No Hematochezia, No Frequency, No Urgency, No Burning, No Hematuria, No Rashes, No Diaphoresis. Appetite is Normal Physical Exam Gen-AAO x 3, NAD, Afebrile Head-NCAT, EOMI, PERRLA, Anicteric Sclera, No Posterior Pharyngeal Erythema Neck-Supple, No JVD, No Thyromegaly, No Masses, No LAD, No Bruits Lungs-Wheezing Bilaterally, No Rales, No Rhonchi, No Crepitus Chest-No S4, +S1, +S2, No S3, No Murmurs, No Rubs, No Gallops, No Ectopy Abdomen-Soft, Bowel Sounds Present, Non Tender, Non Distended, No Hepatomegaly, No Splenomegaly, No Palpable Masses, No Rebound, No Rigidity, No Guarding Musculoskeletal-Full Range of Motion Bilaterally, No CVAT Extremities-No Cyanosis, No Clubbing, No Edema Nuero-Cranial Nerves II-XII grossly intact, Motor WNL, DTRs WNL, Strength WNL, Non Focal Psych-Normal Mood Physical Exam 2 Vital Signs (Past 24 Hours): Last Vital Signs Temp 36.8 C 12/06/18 07:21 Pulse 104 H 12/06/18 07:35 Resp 16 02/10/19 07:21 BP 135/79 12/06/18 07:21 Pulse Ox 91 12/06/18 07:21 Results & Data Laboratory Results Allergies moxifloxacin Adverse Reaction (Mild, Verified 12/05/18 22:16) dizziness Height/Weight/Isolation Height 5 ft 9 in Weight 69.1 kg Chemistry 12/05/18 12/06/18 19:36 06:07 Sodium 139 137 Potassium 3.6 3.5 Chloride 98 99 Carbon Dioxide 37 H 29 Anion Gap 4.0 9.0 BUN 26 H 26 H Creatinine 1.74 H 1.92 H Glucose 100 H 209 H Urinalysis 12/05/18 19:20 Urine Color Yellow Urine Appearance Clear Urine pH 5.5 Ur Specific Equality 1.018 Urine Protein Negative Urine Glucose (UA) Negative Urine Ketones Negative Urine Blood Negative Urine Nitrite Negative Urine Bilirubin Negative Microbiology 12/06/18 00:45 Blood Blood Culture - Pending 12/06/18 00:46 Blood Blood Culture - Pending
[2018-12-06] MEDS: cefTRIAXone SODIUM 1,000 MG in DEXTROSE 5% 50 ML IV SCH (09:42)
[2018-12-06] MEDS: metroNIDAZOLE 500 MG/100 ML BAG IV SCH ×2 (10:24→17:16)
--- NOTE | 2018-12-06 14:28 | Emergency Department Note ---
Entered by Dani Lopez acting as a scribe for Anthony Buitrago MD History of Present Illness General Chief complaint: Back Injury/Pain Stated complaint: SOB,BACK PAIN, EYE PAIN, Time Seen by Provider: 12/05/18 19:15 Source: patient History of Present Illness Onset (ago): day(s) (a few days ago) Location: back Pain Consistency: + constant Maximum Pain Intensity: 5 Associated symptoms: + other (Positive for SOB, chest pain, left shoulder pain, and a white productive cough. Negative for urinary symptoms and change in his bowel movements.) The patient is an 83 year old male w/ PMHx of CAD s/p stent, pulmonary hypertension, COPD on 2.5L O2, and an AAA without rupture s/p repair who presents to the ED w/ CC of constant back pain beginning a few days ago. The patient also complains of SOB, chest pain, left shoulder pain, and a white productive cough. He states that he coughs more when he lies down and when he walks. He denies any urinary symptoms and change in his bowel movements. He notes that he has a history of an AAA, but he reports that his symptoms feel different. Per son, the patient wears 2.5L of oxygen at home as needed. He states that the patient does not smoke cigarettes anymore. Home Medications Home Medications Medication Instructions Recorded Confirmed Type allopurinol 300 mg PO QAM 12/05/18 12/05/18 History amlodipine 5 mg PO QAM 12/05/18 12/05/18 History apixaban [Eliquis] 5 mg PO BID 12/05/18 12/05/18 History aspirin 81 mg PO QPM 12/05/18 12/05/18 History donepezil 5 mg PO HS 12/05/18 12/05/18 History fluticasone-vilanterol [Breo 1 inh INHALATION DAILY PRN 12/05/18 12/05/18 History Ellipta] furosemide 20 mg PO QAM 12/05/18 12/05/18 History furosemide 40 mg PO QAM 12/05/18 12/05/18 History ipratropium-albuterol 3 ml INHALATION Q6H PRN 12/05/18 12/05/18 History ipratropium-albuterol [Combivent 1 puff INHALATION Q6H PRN 12/05/18 12/05/18 History Respimat] levothyroxine 50 mcg PO QAM 12/05/18 12/05/18 History lisinopril 5 mg PO HS 12/05/18 12/05/18 History pravastatin 40 mg PO HS 12/05/18 12/05/18 History Allergies Allergy/AdvReac Type Severity Reaction Status Date / Time moxifloxacin AdvReac Mild dizziness Verified 12/05/18 22:16 Past Med/Surg History Medical History CAD (coronary artery disease) (Chronic) "s/p stent" Chronic diastolic heart failure (Chronic) "Echo 09/2014- EF 55-60%, grade 1 diastolic dysfunction" On 03/14/15 19:57 Frances Carpenter wrote "Echo 10/26- EF 55-60%, grade 1 diastolic dysfunction" On 03/14/15 19:51 Frances Carpenter wrote "EF 55-60%" Hx MRSA infection (Chronic) "per records" Hypertension (Chronic) Dependence on continuous supplemental oxygen (Chronic) Pulmonary hypertension (Chronic) "Moderate on echo 09/2014" Hx of pulmonary aspiration (Chronic) Benign enlargement of prostate (Chronic) Mixed hyperlipidemia (Chronic) AAA (abdominal aortic aneurysm) without rupture (Chronic) Pulmonary emphysema (Chronic) History of CVA (cerebrovascular accident) without residual deficits (Resolved) Gout (Chronic) H/O seborrheic keratosis (Chronic) Squamous cell carcinoma of lip (Resolved) Chest pain Surgical History S/P knee replacement (Chronic) Hx of squamous cell carcinoma excision (Chronic) "upper lip" S/P coronary artery stent placement (Chronic) "2005 and 2007" S/P hernia repair (Chronic) S/P AAA repair (Chronic) Family History Other No significant family history Social History Current Living Situation: Alone Feels Safe at Home: Yes Safety Concerns: Feels Safe At This Time Smoking Status: Former smoker Hx Alcohol Use: No Hx Substance Use: No Beliefs That Will Affect Care: None Communication Ability: Effective Review of Systems See HPI for pertinent positives & negatives. and A total of 10 systems reviewed and were otherwise negative Physical Exam Vital Signs Vital Signs - 24 hr 12/05/18 19:08 12/05/18 19:50 12/05/18 19:54 Temperature 36.4 C L Temperature Source Oral Sepsis Recent Fever Within 48 Hours No Sepsis Action Taken by Nursing No Action Required Pulse Rate 67 67 Pulse Rate [Recovery] Pulse Rate [Right Finger] Pulse Rhythm Regular Pulse Rhythm [Right Finger] Pulse Strength [Right Finger] Respiratory Rate 24 24 Respiratory Effort / Characteristics Spontaneous Respiratory Depth Deep Respiratory Pattern Rapid/Deep Blood Pressure 129/75 Blood Pressure [Left Arm] Blood Pressure Mean 93 Blood Pressure Mean [Left Arm] Blood Pressure Position Sitting Blood Pressure Position [Left Arm] Pulse Oximetry 87 L 90 90 Pulse Oximetry [Recovery] Oxygen Delivery Method Room Air Nasal Cannula Nasal Cannula Oxygen Flow Rate 2.5 2.5 12/05/18 21:41 12/05/18 21:55 12/05/18 22:56 Temperature Temperature Source Sepsis Recent Fever Within 48 Hours Sepsis Action Taken by Nursing Pulse Rate 105 H Pulse Rate [Recovery] 108 H Pulse Rate [Right Finger] 105 H Pulse Rhythm Pulse Rhythm [Right Finger] Pulse Strength [Right Finger] Respiratory Rate 32 H 24 Respiratory Effort / Characteristics Respiratory Depth Respiratory Pattern Blood Pressure 135/79 Blood Pressure [Left Arm] Blood Pressure Mean Blood Pressure Mean [Left Arm] Blood Pressure Position Blood Pressure Position [Left Arm] Pulse Oximetry 82 L 92 Pulse Oximetry [Recovery] 82 L Oxygen Delivery Method Room Air Room Air Nasal Cannula Oxygen Flow Rate 2 12/06/18 01:36 12/06/18 01:50 12/06/18 02:54 Temperature 36.7 C 36.9 C Temperature Source Oral Oral Sepsis Recent Fever Within 48 Hours Sepsis Action Taken by Nursing Pulse Rate Pulse Rate [Recovery] Pulse Rate [Right Finger] 100 H 92 H 104 H Pulse Rhythm Pulse Rhythm [Right Finger] Regular Pulse Strength [Right Finger] Normal Respiratory Rate 16 20 18 Respiratory Effort / Characteristics Non-Labored Spontaneous Short of Breath SOB on Exertion Non-Labored Respiratory Depth Normal Respiratory Pattern Regular Blood Pressure Blood Pressure [Left Arm] 126/56 L 107/68 Blood Pressure Mean Blood Pressure Mean [Left Arm] 79 81 Blood Pressure Position Blood Pressure Position [Left Arm] Lying Lying Pulse Oximetry 95 98 92 Pulse Oximetry [Recovery] Oxygen Delivery Method Nasal Cannula Nasal Cannula Nasal Cannula Oxygen Flow Rate 2 1 1.5 12/06/18 07:12 12/06/18 07:21 12/06/18 07:35 Temperature 36.8 C Temperature Source Oral Sepsis Recent Fever Within 48 Hours Sepsis Action Taken by Nursing Pulse Rate 104 H Pulse Rate [Recovery] Pulse Rate [Right Finger] 102 H 99 H Pulse Rhythm Pulse Rhythm [Right Finger] Pulse Strength [Right Finger] Respiratory Rate 18 16 Respiratory Effort / Characteristics Non-Labored Spontaneous Respiratory Depth Respiratory Pattern Blood Pressure Blood Pressure [Left Arm] 135/79 Blood Pressure Mean Blood Pressure Mean [Left Arm] 97 Blood Pressure Position Blood Pressure Position [Left Arm] Lying Pulse Oximetry 90 91 Pulse Oximetry [Recovery] Oxygen Delivery Method Nasal Cannula Nasal Cannula Oxygen Flow Rate 1 1 12/06/18 09:11 12/06/18 11:38 Temperature 36.6 C Temperature Source Oral Sepsis Recent Fever Within 48 Hours Sepsis Action Taken by Nursing Pulse Rate Pulse Rate [Recovery] Pulse Rate [Right Finger] 102 H Pulse Rhythm Pulse Rhythm [Right Finger] Pulse Strength [Right Finger] Respiratory Rate 16 Respiratory Effort / Characteristics Spontaneous Respiratory Depth Respiratory Pattern Regular Blood Pressure Blood Pressure [Left Arm] 144/76 H Blood Pressure Mean Blood Pressure Mean [Left Arm] 98 Blood Pressure Position Blood Pressure Position [Left Arm] Lying Pulse Oximetry 93 Pulse Oximetry [Recovery] Oxygen Delivery Method Nasal Cannula Nasal Cannula Oxygen Flow Rate 2 2 GENERAL: Well appearing, well nourished, NAD, non-toxic. EYE EXAM: Normal conjunctiva. PERRL, no anisocoria and EOM's grossly intact w/o pain. OROPHARYNX: No exudate, posterior pharynx is clear, no tonsillar/uvular deviation or swelling. NECK: Supple, no nuchal rigidity, no adenopathy, non-tender. No signs of meningismus. LUNGS: Normal chest wall mechanics. Diffuse wheezing throughout. HEART: NSR, no MRG. ABDOMEN: Abdomen soft, non-tender, normo-active bowel sounds, no masses, no rebound or guarding. BACK: No CVA TTP. SKIN: No rashes and no bruising. UPPER EXTREMITIES: Upper extremities are grossly normal. LOWER EXTREMITIES: No pitting edema. No calf pain. Negative Zia's sign. NEURO EXAM: Awake, alert, oriented, moves all 4 extremities on command w/o issue. Course 1914: Past medical records reviewed. The patient was evaluated in room C2, and a complete history and physical examination were performed. 2030: I reevaluated and updated the patient. He does not feel better. He still has some wheezing. He also has some upper back pain that is not reproducible. He will receive another nebulizer treatment and more pain medicine. 2134: Upon reevaluation, the patient is stable. I discussed the results and treatment plan with the patient. He verbalizes understanding and agreement. I discussed the patient's case with Poli Cid. The patient will be evaluated for further management and care. 220: I reevaluated and updated the patient. He had a walk test done and his oxygen desaturated to 81%. Consultations Consultation #1: I reviewed the patient's case with Poli Cid. He will evaluate the patient for further management. Time: 21:34 Administered Medications Allopurinol (Zyloprim) 300 mg PO QAM [facility] Stop: 01/05/19 08:59 Last Admin: 12/06/18 08:14 Dose: 300 mg Amlodipine Besylate (Norvasc) 5 mg PO QAM [facility] Stop: 01/05/19 08:59 Last Admin: 12/06/18 08:14 Dose: 5 mg Apixaban (Eliquis) 2.5 mg PO BID [facility] Stop: 01/05/19 08:59 Last Admin: 12/06/18 08:15 Dose: 2.5 mg Sodium Chloride (Nss 1000ml) 1,000 mls @ 75 mls/hr IV .[id number] [facility] Stop: 01/05/19 00:17 Last Admin: 12/06/18 01:14 Dose: 75 mls/hr Methylprednisolone 40 mg/ (Syringe) 0.64 mls @ 1.5 mls/min IV Q8H [facility] Stop: 01/05/19 05:59 Last Admin: 12/06/18 14:16 Dose: 1.5 mls/min Admin: 12/06/18 05:35 Dose: 1.5 mls/min Metronidazole (Flagyl) 500 mg in 100 mls @ 100 mls/hr IV Q8H [facility]; Protocol Stop: 12/13/18 09:59 Last Infusion: 12/06/18 11:30 Dose: 0 mls/hr Admin: 12/06/18 10:24 Dose: 100 mls/hr Ceftriaxone Sodium 1,000 mg/ (Dextrose) 50 mls @ 100 mls/hr IV Q24H PONCE; Protocol Stop: 12/13/18 08:59 Last Infusion: 12/06/18 10:17 Dose: 0 mls/hr Admin: 12/06/18 09:42 Dose: 100 mls/hr Ipratropium [place] (Atrovent 0.02% 0.5mg/2.5ml) 0.5 mg INH Q6R [facility] Stop: 01/05/19 01:59 Last Admin: 12/06/18 07:12 Dose: 0.5 mg Admin: 12/06/18 01:53 Dose: 0.5 mg Levalbuterol HCl (Xopenex 1.25mg/0.5ml Neb) 1.25 mg INH Q6R [facility] Stop: 01/05/19 01:59 Last Admin: 12/06/18 07:12 Dose: 1.25 mg Admin: 12/06/18 01:53 Dose: 1.25 mg Levothyroxine Sodium (Synthroid) 50 mcg PO DAILYBB [facility] Stop: 01/05/19 06:29 Last Admin: 12/06/18 05:35 Dose: 50 mcg Miscellaneous (Order Awaiting Action) 1 ea N/A QS [facility]ON[facility] Stop: 01/05/19 07:59 Last Admin: 12/06/18 08:15 Dose: Not Given Discontinued Medications Albuterol (Duoneb) 6 ml NEB NOW STA Stop: 12/05/18 19:29 Last Admin: 12/05/18 20:02 Dose: 6 ml Albuterol (Duoneb) 6 ml NEB NOW STA Stop: 12/05/18 20:36 Last Admin: 12/05/18 21:13 Dose: 6 ml Magnesium Sulfate/Dextrose (Magnesium Sulfate / D5w) 1 gm in 100 mls @ 100 mls/ hr IV ONE ONE Stop: 12/05/18 20:27 Last Infusion: 12/05/18 21:08 Dose: 0 mls/hr Admin: 12/05/18 20:02 Dose: 100 mls/hr Sodium Chloride (Nss 1000ml) 1,000 mls @ 999 mls/hr IV .Q1H1M ONE Stop: 12/05/18 20:29 Last Infusion: 12/05/18 21:08 Dose: 0 mls/hr Admin: 12/05/18 20:03 Dose: 999 mls/hr Levofloxacin/Dextrose (Levaquin/D5w) 750 mg in 150 mls @ 100 mls/hr IV NOW STA Stop: 12/05/18 23:35 Last Infusion: 12/05/18 23:45 Dose: 0 mls/hr Admin: 12/05/18 22:11 Dose: 100 mls/hr Ampicillin Sodium/Sulbactam Sodium 1,500 mg/ Sodium Chloride 104 mls @ 200 mls/ hr IV TODAY@0200 [facility] Stop: 12/06/18 02:32 Last Infusion: 12/06/18 03:13 Dose: 0 mls/hr Admin: 12/06/18 02:28 Dose: 200 mls/hr Doxycycline Hyclate 100 mg/ (Dextrose) 110 mls @ 50 mls/hr IV Q12H [facility] Stop: 12/13/18 01:59 Last Infusion: 12/06/18 03:30 Dose: 0 mls/hr Admin: 12/06/18 01:14 Dose: 50 mls/hr Ampicillin Sodium/Sulbactam Sodium 3,000 mg/ Sodium Chloride 108 mls @ 216 mls/ hr IV Q6H [facility] Stop: 12/13/18 08:29 Last Infusion: 12/06/18 08:57 Dose: 0 mls/hr Admin: 12/06/18 08:18 Dose: 216 mls/hr Ioversol (Optiray 320 100ml) 93 ml IV ONCE PRN PRN Reason: Interaction Checking Stop: 12/09/18 20:58 Last Admin: 12/05/18 21:00 Dose: 93 ml Methylprednisolone (Solumedrol) 125 mg IV NOW STA Stop: 12/05/18 19:29 Last Admin: 12/05/18 20:02 Dose: 125 mg Miscellaneous (Patient's Height And/Or Weight Needed) 1 ea N/A Q2H [facility] Stop: 01/05/19 01:29 Last Admin: 12/06/18 07:19 Dose: Not Given Morphine Sulfate (Morphine Sulfate) 4 mg IV NOW STA Stop: 12/05/18 20:36 Last Admin: 12/05/18 21:13 Dose: 4 mg Medical Decision Making Medical Records Attestation: I reviewed the patient's medical records. Home Medications Current Medication List: was personally reviewed by me Laboratory Data Attestation: I reviewed the patient's lab results. Result diagrams: 12/06/18 06:07 12/06/18 06:07 Lab Results 12/05/18 12/05/18 12/05/18 Range/Units 19:20 19:36 19:36 WBC 9.19 (4.8-10.8) K/uL RBC 4.65 L (4.7-6.1) M/uL Hgb 14.8 (14.0-18.0) g/dL POC Hgb (14.0-18.0) g/dl Hct 44.9 (42-52) % POC Hct (42-52) % MCV 96.6 (80-100) fL MCH 31.8 (25-34) pg MCHC 33.0 (32-36) g/dL RDW Std Deviation 47.4 H (36.4-46.3) fL RDW Coeff of Lety 13.6 (11.5-14.5) % Plt Count 194 (130-400) K/uL MPV 9.9 (7.4-10.4) fL Immature Gran % (Auto) 0.2 % Neut % (Auto) 71.1 % Lymph % (Auto) 15.9 % [place] % (Auto) 8.4 % Eos % (Auto) 4.2 % Baso % (Auto) 0.2 % Immature Gran # (Auto) 0.02 (0.00-0.02) K/uL Neut # (Auto) 6.53 H (1.4-6.5) K/uL Lymph # (Auto) 1.46 (1.2-3.4) K/uL [place] # (Auto) 0.77 H (0.11-0.59) K/uL Eos # (Auto) 0.39 (0-0.5) K/uL Baso # (Auto) 0.02 (0-0.2) K/uL PT 10.2 (9.0-12.0) Seconds INR 1.0 (0.9-1.1) APTT 30.6 (21.0-31.0) Seconds PTT Ratio 1.2 POC D-Dimer (0-450) ng/mlFEU VBG pH (7.36-7.41) VBG pCO2 (38-50) mmHg VBG pO2 mmHg VBG HCO3 mmol/L VBG O2 Saturation % VBG Base Excess mEq/L Barometric Pressure mm/Hg POC Sodium (135-144) mEq/L Sodium (136-145) mmol/L POC Potassium (3.3-5.0) mEq/L Potassium (3.5-5.1) mmol/L POC Chloride (101-112) mEq/L Chloride (98-107) mmol/L Carbon Dioxide (21-32) mmol/L POC Total CO2 (24-31) mEq/l Anion Gap (3-11) POC Anion Gap (16-25) mmol/L POC BUN (7-18) mg/dl BUN (7-18) mg/dl Creatinine (0.6-1.4) mg/dl POC Creatinine (0.6-1.3) mg/dl Est Cr Clr Drug Dosing Est GFR ( Amer) Est GFR (Non-Af Amer) BUN/Creatinine Ratio (10-20) Glucose (70-99) mg/dl POC Glucose (other) (70-99) mg/dl Calcium (8.5-10.1) mg/dl POC Ioniz Calcium Arian (1.12-1.32) mmol/l Magnesium (1.8-2.4) mg/dl Total Bilirubin (0.2-1) mg/dl AST (15-37) U/L ALT (12-78) U/L Alkaline Phosphatase (45-117) U/L Total Protein (6.4-8.2) gm/dl Albumin (3.4-5.0) gm/dl Globulin (2.5-4.0) gm/dl Albumin/Globulin Ratio (0.9-2) Urine Color Yellow Urine Appearance Clear (Clear) Urine pH 5.5 (4.5-7.5) Ur Specific Chauvin 1.018 (1.000-1.030) Urine Protein Negative (Negative) Urine Glucose (UA) Negative (Negative) Urine Ketones Negative (Negative) Urine Blood Negative (Negative) Urine Nitrite Negative (Negative) Urine Bilirubin Negative (Negative) Urine Urobilinogen Negative (Negative) Ur Leukocyte Esterase Negative (Negative) Influenza Type A (PCR) (Neg) Influenza Type B (PCR) (Neg) 12/05/18 12/05/18 12/05/18 Range/Units 19:36 19:37 19:39 WBC (4.8-10.8) K/uL RBC (4.7-6.1) M/uL Hgb (14.0-18.0) g/dL POC Hgb (14.0-18.0) g/dl Hct (42-52) % POC Hct (42-52) % MCV (80-100) fL MCH (25-34) pg MCHC (32-36) g/dL RDW Std Deviation (36.4-46.3) fL RDW Coeff of Lety (11.5-14.5) % Plt Count (130-400) K/uL MPV (7.4-10.4) fL Immature Gran % (Auto) % Neut % (Auto) % Lymph % (Auto) % [place] % (Auto) % Eos % (Auto) % Baso % (Auto) % Immature Gran # (Auto) (0.00-0.02) K/uL Neut # (Auto) (1.4-6.5) K/uL Lymph # (Auto) (1.2-3.4) K/uL [place] # (Auto) (0.11-0.59) K/uL Eos # (Auto) (0-0.5) K/uL Baso # (Auto) (0-0.2) K/uL PT (9.0-12.0) Seconds INR (0.9-1.1) APTT (21.0-31.0) Seconds PTT Ratio POC D-Dimer (0-450) ng/mlFEU VBG pH 7.38 (7.36-7.41) VBG pCO2 64 H (38-50) mmHg VBG pO2 23 mmHg VBG HCO3 37 mmol/L VBG O2 Saturation < 60.0 % VBG Base Excess 9.1 mEq/L Barometric Pressure 748.9 mm/Hg POC Sodium (135-144) mEq/L Sodium 139 (136-145) mmol/L POC Potassium (3.3-5.0) mEq/L Potassium 3.6 (3.5-5.1) mmol/L POC Chloride (101-112) mEq/L Chloride 98 (98-107) mmol/L Carbon Dioxide 37 H (21-32) mmol/L POC Total CO2 (24-31) mEq/l Anion Gap 4.0 (3-11) POC Anion Gap (16-25) mmol/L POC BUN (7-18) mg/dl BUN 26 H (7-18) mg/dl Creatinine 1.74 H (0.6-1.4) mg/dl POC Creatinine (0.6-1.3) mg/dl Est Cr Clr Drug Dosing Not Reportable Est GFR ( Amer) 41.4 Est GFR (Non-Af Amer) 35.7 BUN/Creatinine Ratio 15.0 (10-20) Glucose 100 H (70-99) mg/dl POC Glucose (other) (70-99) mg/dl Calcium 9.0 (8.5-10.1) mg/dl POC Ioniz Calcium Arian (1.12-1.32) mmol/l Magnesium (1.8-2.4) mg/dl Total Bilirubin 0.5 (0.2-1) mg/dl AST 19 (15-37) U/L ALT 15 (12-78) U/L Alkaline Phosphatase 56 (45-117) U/L Total Protein 7.7 (6.4-8.2) gm/dl Albumin 4.0 (3.4-5.0) gm/dl Globulin 3.7 (2.5-4.0) gm/dl Albumin/Globulin Ratio 1.1 (0.9-2) Urine Color Urine Appearance (Clear) Urine pH (4.5-7.5) Ur Specific Chauvin (1.000-1.030) Urine Protein (Negative) Urine Glucose (UA) (Negative) Urine Ketones (Negative) Urine Blood (Negative) Urine Nitrite (Negative) Urine Bilirubin (Negative) Urine Urobilinogen (Negative) Ur Leukocyte Esterase (Negative) Influenza Type A (PCR) Neg for Influ A (Neg) Influenza Type B (PCR) Neg for Influ B (Neg) 12/05/18 12/05/18 12/06/18 Range/Units 19:43 19:48 06:07 WBC 4.57 L (4.8-10.8) K/uL RBC 3.83 L (4.7-6.1) M/uL Hgb 11.9 L (14.0-18.0) g/dL POC Hgb 15.3 (14.0-18.0) g/dl Hct 36.5 L (42-52) % POC Hct 45 (42-52) % MCV 95.3 (80-100) fL MCH 31.1 (25-34) pg MCHC 32.6 (32-36) g/dL RDW Std Deviation 47.5 H (36.4-46.3) fL RDW Coeff of Lety 13.7 (11.5-14.5) % Plt Count 167 (130-400) K/uL MPV 10.0 (7.4-10.4) fL Immature Gran % (Auto) 0.2 % Neut % (Auto) 91.5 % Lymph % (Auto) 7.7 % [place] % (Auto) 0.4 % Eos % (Auto) 0.2 % Baso % (Auto) 0.0 % Immature Gran # (Auto) 0.01 (0.00-0.02) K/uL Neut # (Auto) 4.18 (1.4-6.5) K/uL Lymph # (Auto) 0.35 L (1.2-3.4) K/uL [place] # (Auto) 0.02 L (0.11-0.59) K/uL Eos # (Auto) 0.01 (0-0.5) K/uL Baso # (Auto) 0.00 (0-0.2) K/uL PT (9.0-12.0) Seconds INR (0.9-1.1) APTT (21.0-31.0) Seconds PTT Ratio POC D-Dimer > 450 H* (0-450) ng/mlFEU VBG pH (7.36-7.41) VBG pCO2 (38-50) mmHg VBG pO2 mmHg VBG HCO3 mmol/L VBG O2 Saturation % VBG Base Excess mEq/L Barometric Pressure mm/Hg POC Sodium 140 (135-144) mEq/L Sodium (136-145) mmol/L POC Potassium 3.6 (3.3-5.0) mEq/L Potassium (3.5-5.1) mmol/L POC Chloride 93 L (101-112) mEq/L Chloride (98-107) mmol/L Carbon Dioxide (21-32) mmol/L POC Total CO2 37 H (24-31) mEq/l Anion Gap (3-11) POC Anion Gap 15.0 L (16-25) mmol/L POC BUN 23 H (7-18) mg/dl BUN (7-18) mg/dl Creatinine (0.6-1.4) mg/dl POC Creatinine 1.6 H (0.6-1.3) mg/dl Est Cr Clr Drug Dosing Est GFR ( Amer) Est GFR (Non-Af Amer) BUN/Creatinine Ratio (10-20) Glucose (70-99) mg/dl POC Glucose (other) 101 H (70-99) mg/dl Calcium (8.5-10.1) mg/dl POC Ioniz Calcium Arian 1.12 (1.12-1.32) mmol/l Magnesium (1.8-2.4) mg/dl Total Bilirubin (0.2-1) mg/dl AST (15-37) U/L ALT (12-78) U/L Alkaline Phosphatase (45-117) U/L Total Protein (6.4-8.2) gm/dl Albumin (3.4-5.0) gm/dl Globulin (2.5-4.0) gm/dl Albumin/Globulin Ratio (0.9-2) Urine Color Urine Appearance (Clear) Urine pH (4.5-7.5) Ur Specific Chauvin (1.000-1.030) Urine Protein (Negative) Urine Glucose (UA) (Negative) Urine Ketones (Negative) Urine Blood (Negative) Urine Nitrite (Negative) Urine Bilirubin (Negative) Urine Urobilinogen (Negative) Ur Leukocyte Esterase (Negative) Influenza Type A (PCR) (Neg) Influenza Type B (PCR) (Neg) 12/06/18 Range/Units 06:07 WBC (4.8-10.8) K/uL RBC (4.7-6.1) M/uL Hgb (14.0-18.0) g/dL POC Hgb (14.0-18.0) g/dl Hct (42-52) % POC Hct (42-52) % MCV (80-100) fL MCH (25-34) pg MCHC (32-36) g/dL RDW Std Deviation (36.4-46.3) fL RDW Coeff of Lety (11.5-14.5) % Plt Count (130-400) K/uL MPV (7.4-10.4) fL Immature Gran % (Auto) % Neut % (Auto) % Lymph % (Auto) % [place] % (Auto) % Eos % (Auto) % Baso % (Auto) % Immature Gran # (Auto) (0.00-0.02) K/uL Neut # (Auto) (1.4-6.5) K/uL Lymph # (Auto) (1.2-3.4) K/uL [place] # (Auto) (0.11-0.59) K/uL Eos # (Auto) (0-0.5) K/uL Baso # (Auto) (0-0.2) K/uL PT (9.0-12.0) Seconds INR (0.9-1.1) APTT (21.0-31.0) Seconds PTT Ratio POC D-Dimer (0-450) ng/mlFEU VBG pH (7.36-7.41) VBG pCO2 (38-50) mmHg VBG pO2 mmHg VBG HCO3 mmol/L VBG O2 Saturation % VBG Base Excess mEq/L Barometric Pressure mm/Hg POC Sodium (135-144) mEq/L Sodium 137 (136-145) mmol/L POC Potassium (3.3-5.0) mEq/L Potassium 3.5 (3.5-5.1) mmol/L POC Chloride (101-112) mEq/L Chloride 99 (98-107) mmol/L Carbon Dioxide 29 (21-32) mmol/L POC Total CO2 (24-31) mEq/l Anion Gap 9.0 (3-11) POC Anion Gap (16-25) mmol/L POC BUN (7-18) mg/dl BUN 26 H (7-18) mg/dl Creatinine 1.92 H (0.6-1.4) mg/dl POC Creatinine (0.6-1.3) mg/dl Est Cr Clr Drug Dosing 29.0 Est GFR ( Amer) 36.8 Est GFR (Non-Af Amer) 31.7 BUN/Creatinine Ratio 13.5 (10-20) Glucose 209 H (70-99) mg/dl POC Glucose (other) (70-99) mg/dl Calcium 8.3 L (8.5-10.1) mg/dl POC Ioniz Calcium Arian (1.12-1.32) mmol/l Magnesium 2.0 (1.8-2.4) mg/dl Total Bilirubin (0.2-1) mg/dl AST (15-37) U/L ALT (12-78) U/L Alkaline Phosphatase (45-117) U/L Total Protein (6.4-8.2) gm/dl Albumin (3.4-5.0) gm/dl Globulin (2.5-4.0) gm/dl Albumin/Globulin Ratio (0.9-2) Urine Color Urine Appearance (Clear) Urine pH (4.5-7.5) Ur Specific [place]vin (1.000-1.030) Urine Protein (Negative) Urine Glucose (UA) (Negative) Urine Ketones (Negative) Urine Blood (Negative) Urine Nitrite (Negative) Urine Bilirubin (Negative) Urine Urobilinogen (Negative) Ur Leukocyte Esterase (Negative) Influenza Type A (PCR) (Neg) Influenza Type B (PCR) (Neg) Imaging Data Radiologist's Impression: Radiology results as stated below per my review and the radiologist's interpretation: SINGLE VIEW CHEST FINDINGS: 2 AP, portable, upright chest radiographs are compared to study dated 02/22/2018 and correlated with chest CT dated 07/07/2018. The examination is degraded by portable technique and patient rotation. The heart is top normal for projection, noting atherosclerotic calcification of the thoracic aorta. Advanced emphysematous change is similar to previous. Advanced emphysema and chronic interstitial thickening are similar to previous. Apical bullous changes observed. There is bibasilar scarring/atelectasis, similar to previous. No airspace consolidation is seen typical for pneumonia and no large pleural effusion is identified. No pneumothorax is seen. The skeletal structures are osteopenic. There are healed right posterior rib fractures. IMPRESSION: Advanced emphysematous change with no acute cardiopulmonary abnormality. Electronically signed by: Neville Silva M.D. 12/05/2018 7:[address] ANGIOGRAM OF THE CHEST FINDINGS: Thyroid: Imaged portions of the thyroid gland are atrophic and heterogeneous in attenuation. Thoracic aorta: There is mild ectasia of the ascending thoracic aorta which measures up to 3.7 cm diameter. The remainder of the thoracic aorta is normal in caliber. There is advanced atherosclerotic calcification, and the arch demonstrates standard 3-vessel anatomy. No dissection is seen. Pulmonary vasculature: The pulmonary trunk is normal in caliber. There are no filling defects identified in main, lobar, or proximal segmental pulmonary branches to suggest pulmonary embolus. Evaluation of the peripheral vessels is degraded by motion artifact. Heart: The heart is enlarged and without pericardial effusion. The coronary arteries are densely calcified. Lungs and pleural spaces: Evaluation of lung parenchyma is modestly degraded by motion artifact. Advanced emphysema is similar to previous. Apical bullous change is noted. There is bibasilar scarring/atelectasis. Patchy airspace opacities are present at both lung bases. No pleural effusion is identified. A 2.5 cm ovoid density in the lingula adjacent to the major fissure seen on image #[id number] is been present dating back to 2014 and likely represents scarring/ atelectasis. A 6 mm right upper lobe nodule on image #146 has also been present dating back to 2014. Peribronchial thickening is noted in the lower lobes. Fluid /debris is present within the lower lobe airways. Mediastinum: There is no mediastinal lymphadenopathy. Cata: Mildly enlarged right hilar nodes measure up to 15 mm in short axis. Axillae: There is no axillary lymphadenopathy. Upper abdomen: Partially visualized upper abdominal viscera is grossly unremarkable. Skeletal structures: The skeletal structures are osteopenic. Degenerative change is noted throughout the thoracic spine and in the shoulders. No lytic or blastic bony lesions are seen. There are healed right-sided rib fractures. IMPRESSION: 1. There is no evidence of pulmonary embolus in the main, lobar, or proximal segmental pulmonary arteries. 2. Cardiomegaly and advanced emphysema. 3. There are increasing dependent patchy airspace opacities present at both lung bases when compared to 07/07/2018. Additionally, there is peribronchial thickening in the lower lobes with fluid/secretions in the lower lobe airways. Correlate clinically for evidence of pneumonia/aspiration pneumonitis. 4. No pleural effusion is identified. 5. Additional chronic parenchymal changes and nodularity have not significantly changed dating back to 2013. 6. Additional findings as above. Electronically signed by: Neville Silva M.D. 12/05/2018 9:24 PM ECG Data Attestation: I personally reviewed and interpreted this ECG as follows: Indication: back/shoulder pain Rate (beats per minute): 70 Rhythm: normal sinus Findings: + RBBB Comparison ECG Date: from (02/23/2018) Change: no significant change (Morphology and branch pattern unchanged.) Additional Comments: Wide QRS Blood Pressure Blood Pressure Findings: Normal blood pressure Blood Pressure Disposition: did not require urgent referral MDM Narrative The patient is an 83 year old male w/ PMHx of CAD s/p stent, pulmonary hypertension, COPD on 2.5L O2, and AAA without rupture s/p repair who presents to the ED w/ CC of constant back pain beginning a few days ago. Differential diagnosis: Etiologies such as shingles, musculoskeletal pain, pericarditis, myocarditis, cardiac ischemia, pericardial tamponade, pneumonia, pneumothorax, pleural effusion, hemothorax, pleurisy, aortic pathology, pulmonary embolism, intra- abdominal process, as well as others were considered. Patient presented with complaints of shortness of breath. The patient does have very bad COPD. The patient is a prior history of AAA status post repair. Patient states that this was always asymptomatic. Patient does complain of some chest pain but is upper back. He does not from the chest and radiating toward the back. Patient is otherwise fairly well-appearing at the bedside. The patient does use supplemental oxygen as needed. The patient's blood work shows a normal white count. The patient did have an elevated d-dimer. The patient does have mild AK I. The patient was given IV fluids. CT angios is not show evidence of PE. Patient does have some airspace consolidation likely consistent with the patient's acute COPD exacerbation potentially associated pneumonia the patient was treated with antibiotics. Patient was ambulatory with his baseline oxygen and did did desat to the low 80s. Given all of the above I believe the patient would be better suited for inpatient treatment. I did speak the on-call hospitalist who agreed to further evaluate treat the patient. Patient was admitted to the medicine service. Impression & Plan Pneumonia, COPD (chronic obstructive pulmonary disease), Respiratory failure with hypoxia Discharge Plan Visit Data *Final* Discharge Date/Time: 12/05/18 22:56 Chief Complaint: Back Injury/Pain Stated Complaint: SOB,BACK PAIN, EYE PAIN, ED Provider: Anthony Buitrago Discharge Problem: Pneumonia, COPD (chronic obstructive pulmonary disease), Respiratory failure with hypoxia Patient Disposition: Admitted As Inpatient Discharge Instructions Interventions: ED Discharge Assessment Last Done: 12/05/18 22:56 The scribe's documentation has been prepared under my direction and personally reviewed by me in its entirety. I confirm that the note above accurately reflects all work, treatment, procedures, and medical decision making performed by me.
[2018-12-06] MEDS: ASPIRIN 81 MG ECTAB PO SCH (21:13)
[2018-12-06] MEDS: DONEPEZIL HCL 5 MG TAB PO SCH (21:13)
[2018-12-06] MEDS: PRAVASTATIN SOD 40 MG TAB PO SCH (21:14)
[2018-12-07] MEDS: IPRATROPIUM BROMIDE NEB SOLN 0.02% 2.5 ML VIAL INH SCH ×4 (01:32→19:29)
[2018-12-07] MEDS: LEVALBUTEROL 1.25MG/0.5ML NEB INH SCH ×4 (01:32→19:27)
[2018-12-07] MEDS: metroNIDAZOLE 500 MG/100 ML BAG IV SCH ×3 (03:20→17:56)
[2018-12-07] MEDS: SODIUM CHLORIDE 0.9% 1000ML 1,000 ML IV SCH (04:28)
[2018-12-07] MEDS: LEVOTHYROXINE SODIUM 50 MCG TABLET PO SCH (04:30)
[2018-12-07] MEDS: methylPREDNISolone 40 MG in SYRINGE 0 ML IV SCH ×3 (04:31→21:49)
[2018-12-07 05:56] LABS: Hematocrit (blood only) 34.2 % (42-52); Hemoglobin 11.3 g/dL (14.0-18.0); Mean Corpuscular Volume 94.2 fL (80-100); Mean Platelet Volume 10.1 fL (7.4-10.4); Platelet Count 170 K/uL (130-400); RDW Coefficient of Variation 13.5 % (11.5-14.5); RDW Standard Deviation 46.5 fL (36.4-46.3); Red Blood Count 3.63 M/uL (4.7-6.1); White Blood Count 10.48 K/uL (4.8-10.8)
[2018-12-07 06:31] LABS: BUN Creatinine Ratio 19.8 (10-20); Calcium 8.5 mg/dl (8.5-10.1); Creatinine Clr Calc Pharmacy 36.7 ml/min; Est GFR (African American) 47.6; Est GFR (Non-African American) 41.1; Potassium 3.6 mmol/L (3.5-5.1)
[2018-12-07] MEDS: cefTRIAXone SODIUM 1,000 MG in DEXTROSE 5% 50 ML IV SCH (08:01)
[2018-12-07] MEDS: APIXABAN 2.5 MG TAB PO SCH ×2 (08:03→20:49)
[2018-12-07] MEDS: AMLODIPINE BESYLATE 5 MG TAB PO SCH (08:03)
[2018-12-07] MEDS: ALLOPURINOL 300 MG TAB PO SCH (08:04)
--- NOTE | 2018-12-07 10:56 | Hospitalist Progress Note ---
Date of Service December 07, 2018 Subjective 83-year-old male with past medical history significant for COPD , chronic respiratory failure on home oxygen 2.5 L 24x7, abdominal aortic aneurysm status post percutaneous repair, history of asthma, CAD status post stent, chronic diastolic CHF, and gout, presents with shortness of breath and cough since last few days, bringing up whitish yellow phlegm. Denies fever, he also had some pain in the neck and radiating to the back. Neck pain is gone after the pain medication in the ER. Denies any headache. There is some reddish lesion on the right upper lid, which is slightly swollen but he is refusing to follow with ophthalmology as per son, but no blurred vision. No runny nose, no sore throat. He is supposed to be on soft diet as per the speech recommendation on last admission, but patient is eating regular food. He says he swallows okay, once in a while having some difficulty. No nausea, no vomiting, no abdominal pain. Normal bowel and bladder movements. Appetite is okay. Currently, resting comfortably and hemodynamically stable. Received steroids and nebs in the ER. ASSESSMENT AND PLAN: This is an 83-year-old male who presents due to chronic obstructive pulmonary disease exacerbation and possible aspiration pneumonitis. 1. Chronic obstructive pulmonary disease exacerbation. IV Solu-Medrol, nebs around the clock and p.r.n. home inhalers. Chronic respiratory failure from COPD , On home oxygen. 2. Pneumonia, possible aspiration pneumonitis. The patient history of dysphagia was seen by speech therapy at last admission 01/2018 and was recommended soft diet. The patient is not following this recommendation. He was supposed to follow with gastrointestinal but he did not follow up. CT scan is showing possible pneumonia versus aspiration pneumonitis. We replace IV Unasyn and doxycycline c Rocephin and Flagyl. 3. Back pain currently resolved, we will monitor. 4. Acute kidney injury and chronic kidney disease stage III, baseline creatinine around 1.4, hold Lasix and lisinopril and monitor the labs. 5. Chronic diastolic congestive heart failure. Has mild pedal edema. Holding Lasix, getting fluids. We will also monitor for volume overload. 7. History of abdominal aortic aneurysm status post repair. 8 History of CVA on aspirin and statin. 9. BPH The patient is on Flomax. 10. Hypertension. Holding lisinopril. Continue clonidine, Lopressor. 11. Hyperlipidemia. Continue statin. 12. Gout. Continue allopurinol. 13. History of squamous cell carcinoma of the lip, surgical excision, currently having lesion in his right upper eyelid, needs to follow with dermatology or ophthalmology. 14. History of coronary artery disease status post stent placement. Currently, stable on aspirin, statin, and beta-hafsa. 15. History of pulmonary hypertension. 16. PAF? patinet on eliquis. 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 17. Deep vein thrombosis prophylaxis. on eliquis, dose reduced sec to renal fxn Continue Rocephin and Flagyl, steroids, breathing treatments, patient feels a little better but not quite at baseline. His lungs are slightly better than yesterday but still very wheezy. Stop IVFs ROS-No Headache, No Visual Changes, No Nausea, No Vomiting, No Fever, No Chills , No Neck Pain or Stiffness, No Chest Pain, No Palpitations, + SOB, No GIBSON, No Cough, No Sputum, + Wheezing, No Abdominal Pain, No Diarrhea, No Hematemesis, No Hemoptysis, No Unexpected Weight Loss, No Flank pain, No Melena, No Hematochezia, No Frequency, No Urgency, No Burning, No Hematuria, No Rashes, No Diaphoresis. Appetite is Normal Physical Exam Gen-AAO x 3, NAD, Afebrile Head-NCAT, EOMI, PERRLA, Anicteric Sclera, No Posterior Pharyngeal Erythema Neck-Supple, No JVD, No Thyromegaly, No Masses, No LAD, No Bruits Lungs-Wheezing Bilaterally, No Rales, No Rhonchi, No Crepitus Chest-No S4, +S1, +S2, No S3, No Murmurs, No Rubs, No Gallops, No Ectopy Abdomen-Soft, Bowel Sounds Present, Non Tender, Non Distended, No Hepatomegaly, No Splenomegaly, No Palpable Masses, No Rebound, No Rigidity, No Guarding Musculoskeletal-Full Range of Motion Bilaterally, No CVAT Extremities-No Cyanosis, No Clubbing, No Edema Nuero-Cranial Nerves II-XII grossly intact, Motor WNL, DTRs WNL, Strength WNL, Non Focal Psych-Normal Mood Physical Exam 2 Vital Signs (Past 24 Hours): Last Vital Signs Temp 36.7 C 12/07/18 07:33 Pulse 101 H 12/07/18 07:33 Resp 20 12/07/18 07:33 BP 155/78 H 12/07/18 07:33 Pulse Ox 92 12/07/18 07:33 Results & Data Laboratory Results Allergies moxifloxacin Adverse Reaction (Mild, Verified 12/05/18 22:16) dizziness Height/Weight/Isolation Height 5 ft 9 in Weight 72.7 kg Isolation Type Contact Precautions CBC 12/05/18 12/05/18 12/05/18 19:20 19:36 19:36 WBC 9.19 RBC 4.65 L Hgb 14.8 POC Hgb Hct 44.9 POC Hct MCV 96.6 MCH 31.8 MCHC 33.0 RDW Std Deviation 47.4 H RDW Coeff of Lety 13.6 Plt Count 194 MPV 9.9 Immature Gran % (Auto) 0.2 Neut % (Auto) 71.1 Lymph % (Auto) 15.9 Craven % (Auto) 8.4 Eos % (Auto) 4.2 Baso % (Auto) 0.2 Immature Gran # (Auto) 0.02 Neut # (Auto) 6.53 H Lymph # (Auto) 1.46 Craven # (Auto) 0.77 H Eos # (Auto) 0.39 Baso # (Auto) 0.02 PT 10.2 INR 1.0 APTT 30.6 PTT Ratio 1.2 POC D-Dimer VBG pH VBG pCO2 VBG pO2 VBG HCO3 VBG O2 Saturation VBG Base Excess Barometric Pressure POC Sodium Sodium POC Potassium Potassium POC Chloride Chloride Carbon Dioxide POC Total CO2 Anion Gap POC Anion Gap POC BUN BUN Creatinine POC Creatinine Est Cr Clr Drug Dosing Est GFR ( Amer) Est GFR (Non-Af Amer) BUN/Creatinine Ratio Glucose POC Glucose (other) Calcium POC Ioniz Calcium Arian Magnesium Total Bilirubin AST ALT Alkaline Phosphatase Total Protein Albumin Globulin Albumin/Globulin Ratio Urine Color Yellow Urine Appearance Clear Urine pH 5.5 Ur Specific [place] 1.018 Urine Protein Negative Urine Glucose (UA) Negative Urine Ketones Negative Urine Blood Negative Urine Nitrite Negative Urine Bilirubin Negative Urine Urobilinogen Negative Ur Leukocyte Esterase Negative Influenza Type A (PCR) Influenza Type B (PCR) 12/05/18 12/05/18 12/05/18 19:36 19:37 19:39 WBC RBC Hgb POC Hgb Hct POC Hct MCV MCH MCHC RDW Std Deviation RDW Coeff of Lety Plt Count MPV Immature Gran % (Auto) Neut % (Auto) Lymph % (Auto) Craven % (Auto) Eos % (Auto) Baso % (Auto) Immature Gran # (Auto) Neut # (Auto) Lymph # (Auto) Craven # (Auto) Eos # (Auto) Baso # (Auto) PT INR APTT PTT Ratio POC D-Dimer VBG pH 7.38 VBG pCO2 64 H VBG pO2 23 VBG HCO3 37 VBG O2 Saturation < 60.0 VBG Base Excess 9.1 Barometric Pressure 748.9 POC Sodium Sodium 139 POC Potassium Potassium 3.6 POC Chloride Chloride 98 Carbon Dioxide 37 H POC Total CO2 Anion Gap 4.0 POC Anion Gap POC BUN BUN 26 H Creatinine 1.74 H POC Creatinine Est Cr Clr Drug Dosing Not Reportable Est GFR ( Amer) 41.4 Est GFR (Non-Af Amer) 35.7 BUN/Creatinine Ratio 15.0 Glucose 100 H POC Glucose (other) Calcium 9.0 POC Ioniz Calcium Arian Magnesium Total Bilirubin 0.5 AST 19 ALT 15 Alkaline Phosphatase 56 Total Protein 7.7 Albumin 4.0 Globulin 3.7 Albumin/Globulin Ratio 1.1 Urine Color Urine Appearance Urine pH Ur Specific [place] Urine Protein Urine Glucose (UA) Urine Ketones Urine Blood Urine Nitrite Urine Bilirubin Urine Urobilinogen Ur Leukocyte Esterase Influenza Type A (PCR) Neg for Influ A Influenza Type B (PCR) Neg for Influ B 12/05/18 12/05/18 12/06/18 19:43 19:48 06:07 WBC 4.57 L RBC 3.83 L Hgb 11.9 L POC Hgb 15.3 Hct 36.5 L POC Hct 45 MCV 95.3 MCH 31.1 MCHC 32.6 RDW Std Deviation 47.5 H RDW Coeff of Lety 13.7 Plt Count 167 MPV 10.0 Immature Gran % (Auto) 0.2 Neut % (Auto) 91.5 Lymph % (Auto) 7.7 Craven % (Auto) 0.4 Eos % (Auto) 0.2 Baso % (Auto) 0.0 Immature Gran # (Auto) 0.01 Neut # (Auto) 4.18 Lymph # (Auto) 0.35 L Craven # (Auto) 0.02 L Eos # (Auto) 0.01 Baso # (Auto) 0.00 PT INR APTT PTT Ratio POC D-Dimer > 450 H* VBG pH VBG pCO2 VBG pO2 VBG HCO3 VBG O2 Saturation VBG Base Excess Barometric Pressure POC Sodium 140 Sodium POC Potassium 3.6 Potassium POC Chloride 93 L Chloride Carbon Dioxide POC Total CO2 37 H Anion Gap POC Anion Gap 15.0 L POC BUN 23 H BUN Creatinine POC Creatinine 1.6 H Est Cr Clr Drug Dosing Est GFR ( Amer) Est GFR (Non-Af Amer) BUN/Creatinine Ratio Glucose POC Glucose (other) 101 H Calcium POC Ioniz Calcium Arian 1.12 Magnesium Total Bilirubin AST ALT Alkaline Phosphatase Total Protein Albumin Globulin Albumin/Globulin Ratio Urine Color Urine Appearance Urine pH Ur Specific [place] Urine Protein Urine Glucose (UA) Urine Ketones Urine Blood Urine Nitrite Urine Bilirubin Urine Urobilinogen Ur Leukocyte Esterase Influenza Type A (PCR) Influenza Type B (PCR) 12/06/18 12/07/18 12/07/18 06:07 05:25 05:25 WBC 10.48 RBC 3.63 L Hgb 11.3 L POC Hgb Hct 34.2 L POC Hct MCV 94.2 MCH 31.1 MCHC 33.0 RDW Std Deviation 46.5 H RDW Coeff of Lety 13.5 Plt Count 170 MPV 10.1 Immature Gran % (Auto) Neut % (Auto) Lymph % (Auto) [place] % (Auto) Eos % (Auto) Baso % (Auto) Immature Gran # (Auto) Neut # (Auto) Lymph # (Auto) [place] # (Auto) Eos # (Auto) Baso # (Auto) PT INR APTT PTT Ratio POC D-Dimer VBG pH VBG pCO2 VBG pO2 VBG HCO3 VBG O2 Saturation VBG Base Excess Barometric Pressure POC Sodium Sodium 137 139 POC Potassium Potassium 3.5 3.6 POC Chloride Chloride 99 103 Carbon Dioxide 29 28 POC Total CO2 Anion Gap 9.0 8.0 POC Anion Gap POC BUN BUN 26 H 31 H Creatinine 1.92 H 1.55 H D POC Creatinine Est Cr Clr Drug Dosing 29.0 36.7 Est GFR ( Amer) 36.8 47.6 Est GFR (Non-Af Amer) 31.7 41.1 BUN/Creatinine Ratio 13.5 19.8 Glucose 209 H 160 H POC Glucose (other) Calcium 8.3 L 8.5 POC Ioniz Calcium Arian Magnesium 2.0 Total Bilirubin AST ALT Alkaline Phosphatase Total Protein Albumin Globulin Albumin/Globulin Ratio Urine Color Urine Appearance Urine pH Ur Specific [place] Urine Protein Urine Glucose (UA) Urine Ketones Urine Blood Urine Nitrite Urine Bilirubin Urine Urobilinogen Ur Leukocyte Esterase Influenza Type A (PCR) Influenza Type B (PCR) Chemistry 12/05/18 12/06/18 12/07/18 19:36 06:07 05:25 Sodium 139 137 139 Potassium 3.6 3.5 3.6 Chloride 98 99 103 Carbon Dioxide 37 H 29 28 Anion Gap 4.0 9.0 8.0 BUN 26 H 26 H 31 H Creatinine 1.74 H 1.92 H 1.55 H D Glucose 100 H 209 H 160 H Urinalysis 12/05/18 19:20 Urine Color Yellow Urine Appearance Clear Urine pH 5.5 Ur Specific [place] 1.018 Urine Protein Negative Urine Glucose (UA) Negative Urine Ketones Negative Urine Blood Negative Urine Nitrite Negative Urine Bilirubin Negative Microbiology 12/06/18 00:46 Blood Blood Culture - Preliminary No growth to date. 12/06/18 00:45 Blood Blood Culture - Preliminary No growth to date.
[2018-12-07] MEDS ORDERED: ALBUT/IPRATROP 3MG/0.5MG NEB 3 ML VIAL INH PRN (10:57)
[2018-12-07] MEDS ORDERED: IPRATROPIUM BROMIDE/ALBUTEROL respimat INH INH PRN (12:00)
[2018-12-07] MEDS: FUROSEMIDE 20 MG TAB PO SCH (12:14)
[2018-12-07] MEDS: PRAVASTATIN SOD 40 MG TAB PO SCH (20:50)
[2018-12-07] MEDS: ASPIRIN 81 MG ECTAB PO SCH (20:50)
[2018-12-07] MEDS: LISINOPRIL 5 MG TAB PO SCH (20:51)
[2018-12-07] MEDS: DONEPEZIL HCL 5 MG TAB PO SCH (20:51)
[2018-12-08] MEDS: metroNIDAZOLE 500 MG/100 ML BAG IV SCH (01:47)
[2018-12-08] MEDS: IPRATROPIUM BROMIDE NEB SOLN 0.02% 2.5 ML VIAL INH SCH ×4 (02:09→19:12)
[2018-12-08] MEDS: LEVALBUTEROL 1.25MG/0.5ML NEB INH SCH ×4 (02:11→19:12)
[2018-12-08] MEDS: methylPREDNISolone 40 MG in SYRINGE 0 ML IV SCH ×2 (05:23→17:34)
[2018-12-08] MEDS: LEVOTHYROXINE SODIUM 50 MCG TABLET PO SCH (05:23)
[2018-12-08] MEDS: AMLODIPINE BESYLATE 5 MG TAB PO SCH ×4 (08:54→20:55)
[2018-12-08] MEDS: ALLOPURINOL 300 MG TAB PO SCH (08:54)
[2018-12-08] MEDS: APIXABAN 2.5 MG TAB PO SCH ×2 (08:55→20:55)
[2018-12-08] MEDS: cefTRIAXone SODIUM 1,000 MG in DEXTROSE 5% 50 ML IV SCH (09:05)
--- NOTE | 2018-12-08 09:49 | Hospitalist Progress Note ---
Date of Service December 08, 2018 Subjective 83-year-old male with past medical history significant for COPD , chronic respiratory failure on home oxygen 2.5 L 24x7, abdominal aortic aneurysm status post percutaneous repair, history of asthma, CAD status post stent, chronic diastolic CHF, and gout, presents with shortness of breath and cough since last few days, bringing up whitish yellow phlegm. Denies fever, he also had some pain in the neck and radiating to the back. Neck pain is gone after the pain medication in the ER. Denies any headache. There is some reddish lesion on the right upper lid, which is slightly swollen but he is refusing to follow with ophthalmology as per son, but no blurred vision. No runny nose, no sore throat. He is supposed to be on soft diet as per the speech recommendation on last admission, but patient is eating regular food. He says he swallows okay, once in a while having some difficulty. No nausea, no vomiting, no abdominal pain. Normal bowel and bladder movements. Appetite is okay. Currently, resting comfortably and hemodynamically stable. Received steroids and nebs in the ER. ASSESSMENT AND PLAN: This is an 83-year-old male who presents due to chronic obstructive pulmonary disease exacerbation and possible aspiration pneumonitis. 1. Chronic obstructive pulmonary disease exacerbation. IV Solu-Medrol, nebs around the clock and p.r.n. home inhalers. Chronic respiratory failure from COPD , On home oxygen. 2. Pneumonia, Mycoplasma Pneumonia Isolated. The patient history of dysphagia was seen by speech therapy at last admission 01/2018 and was recommended soft diet. The patient is not following this recommendation. He was supposed to follow with gastrointestinal but he did not follow up. CT scan is showing possible pneumonia versus aspiration pneumonitis. We replaced IV Unasyn and doxycycline c Rocephin and Flagyl. 3. Back pain currently resolved, we will monitor. 4. Acute kidney injury and chronic kidney disease stage III, baseline creatinine around 1.4, hold Lasix and lisinopril and monitor the labs. 5. Chronic diastolic congestive heart failure. Has mild pedal edema. Holding Lasix, getting fluids. We will also monitor for volume overload. 7. History of abdominal aortic aneurysm status post repair. 8 History of CVA on aspirin and statin. 9. BPH The patient is on Flomax. 10. Hypertension. Holding lisinopril. Continue clonidine, Lopressor. 11. Hyperlipidemia. Continue statin. 12. Gout. Continue allopurinol. 13. History of squamous cell carcinoma of the lip, surgical excision, currently having lesion in his right upper eyelid, needs to follow with dermatology or ophthalmology. 14. History of coronary artery disease status post stent placement. Currently, stable on aspirin, statin, and beta-hafsa. 15. History of pulmonary hypertension. 16. PAF? patinet on eliquis. 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 17. Deep vein thrombosis prophylaxis. on eliquis, dose reduced sec to renal fxn Continue Rocephin stop Flagyl, add Doxycycline 100 mg IV Q12, taper steroids-c/ o of hand myopathy this am, Pulm to see, Continue breathing treatments, patient doesnt feel as good today, ?Steroids. His lungs are still slightly better than yesterday, but he's not feeling better. Off IVFs. Contact isolation. ROS-No Headache, No Visual Changes, No Nausea, No Vomiting, No Fever, No Chills , No Neck Pain or Stiffness, No Chest Pain, No Palpitations, + SOB, No GIBSON, No Cough, No Sputum, + Wheezing, No Abdominal Pain, No Diarrhea, No Hematemesis, No Hemoptysis, No Unexpected Weight Loss, No Flank pain, No Melena, No Hematochezia, No Frequency, No Urgency, No Burning, No Hematuria, No Rashes, No Diaphoresis. Appetite is Normal Physical Exam Gen-AAO x 3, NAD, Afebrile Head-NCAT, EOMI, PERRLA, Anicteric Sclera, No Posterior Pharyngeal Erythema Neck-Supple, No JVD, No Thyromegaly, No Masses, No LAD, No Bruits Lungs-Wheezing Bilaterally, No Rales, No Rhonchi, No Crepitus Chest-No S4, +S1, +S2, No S3, No Murmurs, No Rubs, No Gallops, No Ectopy Abdomen-Soft, Bowel Sounds Present, Non Tender, Non Distended, No Hepatomegaly, No Splenomegaly, No Palpable Masses, No Rebound, No Rigidity, No Guarding Musculoskeletal-Full Range of Motion Bilaterally, No CVAT Extremities-No Cyanosis, No Clubbing, No Edema Nuero-Cranial Nerves II-XII grossly intact, Motor WNL, DTRs WNL, Strength WNL, Non Focal Psych-Normal Mood Physical Exam 2 Vital Signs (Past 24 Hours): Last Vital Signs Temp 37.0 C 12/08/18 07:34 Pulse 98 H 12/08/18 07:34 Resp 20 12/08/18 07:34 BP 166/86 H 12/08/18 07:34 Pulse Ox 92 12/08/18 07:34 Results & Data Laboratory Results Allergies moxifloxacin Adverse Reaction (Mild, Verified 12/05/18 22:16) dizziness Height/Weight/Isolation Height 5 ft 9 in Weight 72.8 kg Isolation Type Contact Precautions Chemistry 12/07/18 05:25 Sodium 139 Potassium 3.6 Chloride 103 Carbon Dioxide 28 Anion Gap 8.0 BUN 31 H Creatinine 1.55 H D Glucose 160 H Microbiology 12/06/18 00:46 Blood Blood Culture - Preliminary No growth to date. 12/06/18 00:45 Blood Blood Culture - Preliminary No growth to date.
[2018-12-08] MEDS: FUROSEMIDE 20 MG TAB PO SCH (11:13)
[2018-12-08] MEDS: ISOSORBIDE MONO EXTENDED REL 30 MG TABCR PO SCH (11:13)
[2018-12-08] MEDS: DOXYCYCLINE HYCLATE 100 MG in DEXTROSE 5% 100 ML IV SCH ×2 (11:15→22:07)
[2018-12-08] MEDS: DONEPEZIL HCL 5 MG TAB PO SCH (20:55)
[2018-12-08] MEDS: ASPIRIN 81 MG ECTAB PO SCH (20:55)
[2018-12-08] MEDS: PRAVASTATIN SOD 40 MG TAB PO SCH (20:55)
[2018-12-08] MEDS: LISINOPRIL 5 MG TAB PO SCH (20:55)
--- NOTE | 2018-12-08 21:56 | Consultation Report ---
DATE OF CONSULTATION: 12/08/2018 PULMONARY MEDICINE CONSULTATION REASON FOR CONSULTATION: Severe COPD/pulmonary hypertension. The patient is known to our clinic. HISTORY OF PRESENT ILLNESS: An 83-year-old white male well known to myself and members of our pulmonary clinic, was admitted 2 days ago after having been seen in our ER by Dr. Anthony Buitrago. He has a history of coronary artery disease status post stenting, pulmonary hypertension, severe COPD on 2.5 liters of oxygen via nasal cannula at home and with a history of AAA with repair. Presented to the ER with severe back pain that started several days ago. He was also short of breath, complaining of chest heaviness, left shoulder pain, and a productive cough of whitish phlegm without blood. There was no pleuritic pain. He said his coughing was aggravated with him lying down, although he does complain of orthopnea. He states that he has reasonably weathered the cold weather this winter without difficulties, but over the past several days, in addition to these symptoms, has noted severe weakness in his arms and legs that he attributes to chronic steroids. He has difficulty holding objects because of his weakness. Symptoms do not appear to be unilateral. Patient has had a history of chronic diastolic heart failure with grade 1 diastolic dysfunction seen on echo annually. He has had a history of MRSA infection, hypertensive cardiovascular disease, moderate pulmonary hypertension since 2013, and a history of chronic aspiration. He has emphysema from longstanding smoking history. 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 He was admitted on to Dr. Rodriguez's service. He is on continuous oxygen. He has been diagnosed with COPD/emphysema with an asthmatic component. He has been on Advair Diskus inhaler and Combivent at home and the use of a nebulizer with DuoNeb solution that he uses religiously. CTA of the chest showed no evidence of pulmonary thromboembolic disease, but increased patchy airspace opacities in both lung bases with peribronchial thickening in the lower lobes. There is also secretion seen in the lower lobe airways according to Dr. Rodriguez. He does have a history of dysphagia and has been seen by speech therapy, last admission in January. He is not following the recommendations. The patient was placed on IV Unasyn and doxycycline and also has a history of chronic renal disease stage III with a baseline creatinine of 1.4, it was 1.7 on admission. He has mild pedal edema, the Lasix was held and he was gently hydrated. His IV Unasyn and doxycycline was replaced with IV Rocephin and Flagyl by Dr. Wilson according to his notation. He has a history of paroxysmal atrial fibrillation and he was started on Eliquis I believe by his mma fighter in [place]. ALLERGIES: MOXIFLOXACIN. PHYSICAL EXAMINATION: GENERAL: Reveals a well-developed, well-nourished, pleasant white male appearing in no distress at rest. CURRENT VITAL SIGNS: Blood pressure 166/86, pulse 98 and regular, respiratory rate 20, temperature 37, O2 sat 92% on 2.5 liters. SKIN: Without lesion. HEENT: Atraumatic, normocephalic, PERRLA, EOMI. Conjunctivae pale. Sclerae nonicteric. Fundi poorly visualized. NECK: Neck veins are not distended at 45 degrees. No evidence of adenopathy in the supra or infraclavicular areas. LUNGS: Scattered wheeze, distant to P and A. Rales at the bases. CARDIAC: Regular rate and rhythm. I do not appreciate a gallop. ABDOMEN: Soft, protuberant. EXTREMITIES: Trace pedal edema. No clubbing. Peripheral cyanosis. NEUROLOGIC: Intact. No lateralizing signs. DIAGNOSTIC DATA: CT scan of the chest showed severe emphysematous changes with bullous changes, especially at the left base, and pleural thickening at the right base as well as bibasilar atelectasis, especially at the left lung base with a 2.5 cm ovoid density in the lingula adjacent to the major fissure which was present back in 2013. A 6-mm right upper lobe nodule was seen back then as well. There was peribronchial thickening in lower lobes with evidence of secretions seen in both lower lobe bronchi. Other laboratory, white count 10,400, H and H 11.3 and 34. D-dimer markedly elevated. ABGs on room air on 3 liters on admission pH 7.40, pCO2 of 47, pO2 of 62, BUN 31, creatinine 1.5 with hydration. Influenza type A and B PCR are both negative. Blood cultures negative. OVERALL ASSESSMENT: An 83-year-old well known to me with severe chronic obstructive pulmonary disease, bullous emphysema, possible chronic aspiration, moderately severe pulmonary hypertension, chronic renal disease, and a history of ischemic cardiomyopathy. Admitted with back pain and worsening dyspnea and weakness. I think the possibility of aspiration is certainly there. I agree with the current use of aerosolized bronchodilator, IV Solu-Medrol, and use of IV ceftriaxone with IV doxycycline. IV Flagyl has been discontinued. The patient seems to be improved. Suspect he is also on chronic anticoagulant therapy I am assuming for either chronic atrial fibrillation or frequent bouts of paroxysmal atrial fibrillation. We will follow along with you and see how patient progresses. May need to repeat the video swallow and see if that has worsened and would hold off on consideration of bronchoscopy at this point in time, although there appears to be a great deal of secretions seen involving the lower lobe tracheobronchial anatomy.
[2018-12-09] MEDS: IPRATROPIUM BROMIDE NEB SOLN 0.02% 2.5 ML VIAL INH SCH ×4 (01:46→19:28)
[2018-12-09] MEDS: LEVALBUTEROL 1.25MG/0.5ML NEB INH SCH ×4 (01:48→19:28)
[2018-12-09] MEDS: methylPREDNISolone 40 MG in SYRINGE 0 ML IV SCH ×2 (06:19→18:19)
[2018-12-09] MEDS: LEVOTHYROXINE SODIUM 50 MCG TABLET PO SCH (06:20)
--- NOTE | 2018-12-09 07:19 | Hospitalist Progress Note ---
Date of Service December 09, 2018 Subjective 83-year-old male with past medical history significant for COPD , chronic respiratory failure on home oxygen 2.5 L 24x7, abdominal aortic aneurysm status post percutaneous repair, history of asthma, CAD status post stent, chronic diastolic CHF, and gout, presents with shortness of breath and cough since last few days, bringing up whitish yellow phlegm. Denies fever, he also had some pain in the neck and radiating to the back. Neck pain is gone after the pain medication in the ER. Denies any headache. There is some reddish lesion on the right upper lid, which is slightly swollen but he is refusing to follow with ophthalmology as per son, but no blurred vision. No runny nose, no sore throat. He is supposed to be on soft diet as per the speech recommendation on last admission, but patient is eating regular food. He says he swallows okay, once in a while having some difficulty. No nausea, no vomiting, no abdominal pain. Normal bowel and bladder movements. Appetite is okay. Currently, resting comfortably and hemodynamically stable. Received steroids and nebs in the ER. ASSESSMENT AND PLAN: This is an 83-year-old male who presents due to chronic obstructive pulmonary disease exacerbation and found to have a Mycoplasma Pneumonia. 1. Chronic obstructive pulmonary disease exacerbation. IV Solu-Medrol, nebs around the clock and p.r.n. home inhalers. Chronic respiratory failure from COPD , On home oxygen. 2. Pneumonia, Mycoplasma Pneumonia Isolated. The patient history of dysphagia was seen by speech therapy at last admission 01/2018 and was recommended soft diet. The patient is not following this recommendation. He was supposed to follow with gastrointestinal but he did not follow up. CT scan is showing possible pneumonia versus aspiration pneumonitis. We replaced IV Unasyn and doxycycline c Rocephin and Flagyl. When Mycoplasma was isolated I placed back on Doxy IV 3. Back pain currently resolved, we will monitor. 4. Acute kidney injury and chronic kidney disease stage III, baseline creatinine around 1.4, hold Lasix and lisinopril and monitor the labs. 5. Chronic diastolic congestive heart failure. Has mild pedal edema. Holding Lasix, getting fluids. We will also monitor for volume overload. 7. History of abdominal aortic aneurysm status post repair. 8 History of CVA on aspirin and statin. 9. BPH The patient is on Flomax. 10. Hypertension. Holding lisinopril. Continue clonidine, Lopressor. 11. Hyperlipidemia. Continue statin. 12. Gout. Continue allopurinol. 13. History of squamous cell carcinoma of the lip, surgical excision, currently having lesion in his right upper eyelid, needs to follow with dermatology or ophthalmology. 14. History of coronary artery disease status post stent placement. Currently, stable on aspirin, statin, and beta-hafsa. 15. History of pulmonary hypertension. 16. PAF? patinet on eliquis. Says his shift mgr at [place] started it and don't know why it was started. 17. Deep vein thrombosis prophylaxis. on eliquis, dose reduced sec to renal fxn Continue Rocephin and Doxycycline 100 mg IV Q12, taper steroids-c/o of hand myopathy, Pulm on case, Continue breathing treatments, His lungs are still getting better, but he's not feeling better. Confused, Off IVFs. Contact isolation. Panculture, CTH ROS-No Headache, No Visual Changes, No Nausea, No Vomiting, No Fever, No Chills , No Neck Pain or Stiffness, No Chest Pain, No Palpitations, + SOB, No GIBSON, No Cough, No Sputum, less Wheezing, No Abdominal Pain, No Diarrhea, No Hematemesis , No Hemoptysis, No Unexpected Weight Loss, No Flank pain, No Melena, No Hematochezia, No Frequency, No Urgency, No Burning, No Hematuria, No Rashes, No Diaphoresis. Appetite is Normal Physical Exam Gen-AAO x 3, NAD, Afebrile, Confused Head-NCAT, EOMI, PERRLA, Anicteric Sclera, No Posterior Pharyngeal Erythema Neck-Supple, No JVD, No Thyromegaly, No Masses, No LAD, No Bruits Lungs-Wheezing Bilaterally, No Rales, No Rhonchi, No Crepitus Chest-No S4, +S1, +S2, No S3, No Murmurs, No Rubs, No Gallops, No Ectopy Abdomen-Soft, Bowel Sounds Present, Non Tender, Non Distended, No Hepatomegaly, No Splenomegaly, No Palpable Masses, No Rebound, No Rigidity, No Guarding Musculoskeletal-Full Range of Motion Bilaterally, No CVAT Extremities-No Cyanosis, No Clubbing, No Edema Nuero-Cranial Nerves II-XII grossly intact, Motor WNL, DTRs WNL, Strength WNL, Non Focal Psych-Normal Mood Physical Exam 2 Vital Signs (Past 24 Hours): Last Vital Signs Temp 36.6 C 12/09/18 07:06 Pulse 96 H 12/09/18 07:08 Resp 18 12/09/18 07:06 BP 155/80 H 12/09/18 07:06 Pulse Ox 92 12/09/18 07:06 Results & Data Laboratory Results Allergies moxifloxacin Adverse Reaction (Mild, Verified 12/05/18 22:16) dizziness Height/Weight/Isolation Height 5 ft 9 in Weight 72.4 kg Isolation Type Contact Precautions Microbiology 12/06/18 00:46 Blood Blood Culture - Preliminary No growth to date. 12/06/18 00:45 Blood Blood Culture - Preliminary No growth to date.
[2018-12-09 07:23] LABS: Hematocrit (blood only) 35.7 % (42-52); Hemoglobin 11.6 g/dL (14.0-18.0); Mean Corpuscular Hgb Conc 32.5 g/dL (32-36); Mean Corpuscular Volume 94.7 fL (80-100); Mean Platelet Volume 9.9 fL (7.4-10.4); Platelet Count 196 K/uL (130-400); RDW Coefficient of Variation 13.9 % (11.5-14.5); Red Blood Count 3.77 M/uL (4.7-6.1); White Blood Count 9.26 K/uL (4.8-10.8)
[2018-12-09 08:05] LABS: BUN Creatinine Ratio 21.1 (10-20); Calcium 8.2 mg/dl (8.5-10.1); Creatinine Clr Calc Pharmacy 38.5 ml/min; Est GFR (African American) 50.3; Est GFR (Non-African American) 43.4; Potassium 3.6 mmol/L (3.5-5.1)
--- NOTE | 2018-12-09 08:43 | CT Scan Report ---
CT head/brain wo con CLINICAL HISTORY: Acute change in mental status COMPARISON STUDY: 10/29/2015 TECHNIQUE: Axial CT of the brain is performed from the vertex to the skull base. IV contrast was not administered for this examination. A dose lowering technique was utilized adhering to the principles of ALARA. CT DOSE: 841.54 mGy.cm FINDINGS: No intra or extra-axial mass lesions are visualized. There is no CT evidence of acute cortical infarc tion. There is no evidence of midline shift. There is no acute hemorrhage. No calvarial fractures ar e visualized. There are patchy white matter hypodensities likely on a small vessel basis. 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 There is no evidence of acute sinusitis IMPRESSION: No acute intracranial findings Electronically signed by: Conor Leong M.D. 12/09/2018 8:42 AM
[2018-12-09] MEDS: LISINOPRIL 10 MG TAB PO SCH ×2 (09:11→20:25)
[2018-12-09] MEDS: FUROSEMIDE 20 MG TAB PO SCH ×2 (09:12→20:25)
[2018-12-09] MEDS: APIXABAN 2.5 MG TAB PO SCH ×2 (09:12→20:25)
[2018-12-09] MEDS: cefTRIAXone SODIUM 1,000 MG in DEXTROSE 5% 50 ML IV SCH (09:13)
[2018-12-09] MEDS: ALLOPURINOL 300 MG TAB PO SCH (09:14)
[2018-12-09] MEDS: ISOSORBIDE MONO EXTENDED REL 30 MG TABCR PO SCH (09:15)
[2018-12-09] MEDS: AMLODIPINE BESYLATE 5 MG TAB PO SCH ×2 (09:37→20:25)
[2018-12-09] MEDS: DOXYCYCLINE HYCLATE 100 MG in DEXTROSE 5% 100 ML IV SCH ×2 (10:41→21:28)
--- NOTE | 2018-12-09 17:52 | Progress Note ---
DATE: 12/09/2018 Chart reviewed, patient examined. SUBJECTIVE: The patient was lying awake in bed when I arrived in the room and he appeared disoriented. I reintroduced myself. He had a memory of my following him at our pulmonary practice. I asked him how he was feeling and he states he is still extremely weak, but was brought to physical therapy today. He is having difficulty expectorating any phlegm. He is an 83-year-old with severe COPD, history of chronic respiratory failure on home oxygen and a history of ischemic cardiac disease status post stenting with presentation in the past for chronic diastolic CHF. His sputum is clear. He denies pleuritic pain and according to nurses has been quite confused over the past 24-48 hours. PHYSICAL EXAMINATION: VITAL SIGNS: Blood pressure 129/76, pulse 90 and regular, respiratory rate 16, temperature 36.7, O2 sat 90% on 2 liters. SKIN: Without lesion. HEENT: Atraumatic, normocephalic. PERRLA, EOMI. Conjunctivae pale. Sclerae nonicteric. Fundi poorly visualized. NECK: Neck veins are not distended at 45 degrees. No evidence adenopathy in the supra or infraclavicular region. LUNGS: Wheezing at the right base more audible than the left, persists. CARDIAC: Regular rate and rhythm. I do not appreciate a gallop. ABDOMEN: Soft, protuberant. No evidence of hepatosplenomegaly. EXTREMITIES: No pedal edema, clubbing or cyanosis. NEUROLOGIC: Intact. No lateralizing signs. Oriented x2. LABORATORY DATA: White count 9200, H&H 11.6 and 35.7. No significant peripheral eosinophilia. PT, PTT, INR within normal limits. Mycoplasma IgG was elevated; not the IgM. Head CT today showed no acute intracranial findings. Review of the CTA yesterday as stated in my consultation showed no evidence for pulmonary thromboembolic disease, but there are patchy airspace opacities at the lung bases when compared to 06/2018 and significant peribronchial thickening involving the lower lobes with secretion and debris seen in both major lower lobe bronchi, especially at the right base. There is a question whether patient is aspirating on a chronic basis. OVERALL ASSESSMENT: 83-year-old with severe COPD and ischemic cardiac disease, currently on IV ceftriaxone and doxycycline as well as IV methylprednisolone and aerosolized bronchodilator. I would continue current regimen. I do not believe that the patient has mycoplasma pneumonia and am concerned about chronic aspiration. Nevertheless if he remains bronchospastic tomorrow then would consider bronchoscopy with BAL as he has responded to this approach in the past when pulmonary toilet has been ineffective.
[2018-12-09] MEDS: PRAVASTATIN SOD 40 MG TAB PO SCH (20:25)
[2018-12-09] MEDS: DONEPEZIL HCL 5 MG TAB PO SCH (20:25)
[2018-12-09] MEDS: ASPIRIN 81 MG ECTAB PO SCH (20:25)
[2018-12-10] MEDS: IPRATROPIUM BROMIDE NEB SOLN 0.02% 2.5 ML VIAL INH SCH ×4 (01:53→19:31)
[2018-12-10] MEDS: LEVALBUTEROL 1.25MG/0.5ML NEB INH SCH ×4 (01:53→19:31)
[2018-12-10] MEDS: LEVOTHYROXINE SODIUM 50 MCG TABLET PO SCH (05:35)
[2018-12-10] MEDS: methylPREDNISolone 40 MG in SYRINGE 0 ML IV SCH (05:55)
[2018-12-10 07:29] LABS: Hematocrit (blood only) 35.7 % (42-52); Hemoglobin 11.8 g/dL (14.0-18.0); Mean Corpuscular Hgb Conc 33.1 g/dL (32-36); Mean Corpuscular Volume 93.9 fL (80-100); Nucleated RBC # (auto) 0.02 K/uL (0-0); Nucleated RBC % (auto) 0.2 %; Platelet Count 183 K/uL (130-400); RDW Coefficient of Variation 13.8 % (11.5-14.5); RDW Standard Deviation 47.2 fL (36.4-46.3); White Blood Count 6.81 K/uL (4.8-10.8)
[2018-12-10 08:07] LABS: BUN Creatinine Ratio 20.9 (10-20); Calcium 7.7 mg/dl (8.5-10.1); Creatinine Clr Calc Pharmacy 40.1 ml/min; Est GFR (African American) 52.9; Est GFR (Non-African American) 45.7; Potassium 3.6 mmol/L (3.5-5.1)
[2018-12-10] MEDS: AMLODIPINE BESYLATE 5 MG TAB PO SCH ×2 (08:32→21:58)
[2018-12-10] MEDS: ISOSORBIDE MONO EXTENDED REL 30 MG TABCR PO SCH (08:32)
[2018-12-10] MEDS: FUROSEMIDE 20 MG TAB PO SCH ×2 (08:32→20:13)
[2018-12-10] MEDS: APIXABAN 2.5 MG TAB PO SCH ×2 (08:33→20:13)
[2018-12-10] MEDS: ALLOPURINOL 300 MG TAB PO SCH (08:33)
[2018-12-10] MEDS: cefTRIAXone SODIUM 1,000 MG in DEXTROSE 5% 50 ML IV SCH (08:43)
[2018-12-10] MEDS: DOXYCYCLINE HYCLATE 100 MG in DEXTROSE 5% 100 ML IV SCH ×2 (10:04→21:59)
--- NOTE | 2018-12-10 14:21 | Progress Note ---
DATE: 12/10/2018 PULMONARY MEDICINE PROGRESS NOTE Chart reviewed, patient examined. SUBJECTIVE: The patient was sitting up, having just finished his breakfast. One of his daughters was in attendance. They both feel that he has significantly improved from a respiratory standpoint, just within the last 24 hours. He feels that the breathing treatments and medications have helped. He wishes to go home once discharge rather than to go to a rehab facility. CURRENT PHYSICAL EXAMINATION: GENERAL: Reveals a well-developed, well-nourished white male, in no obvious distress at rest. VITAL SIGNS: Blood pressure 135/68, pulse 86 and regular, respiratory rate 18, temperature 36.7, O2 sat 95% on 2.5 liters. SKIN: Without lesion. HEENT: Atraumatic, normocephalic, PERRLA, EOMI. Conjunctivae pale. Sclerae nonicteric. Fundi poorly visualized. NECK: Neck veins are not distended at 45 degrees. No evidence of adenopathy in the supra or infraclavicular areas. LUNGS: Distant P and A. No audible wheezes at the right base currently. CARDIAC: Regular rate and rhythm. I do not appreciate a gallop. ABDOMEN: Soft, scaphoid. No evidence for hepatosplenomegaly. EXTREMITIES: No pedal edema, clubbing or cyanosis. NEUROLOGICAL: Intact. LABORATORY DATA: White count 6800, H and H stable at 11.8 and 35.7. OVERALL ASSESSMENT: An 83-year-old with severe chronic obstructive pulmonary disease has significantly improved. I do not think there is a concern currently for acute aspiration though can not rule out chronic aspiration and feel the patient is sufficiently improved that bronchoscopic intervention is not required at this point in time. I would convert him to oral steroid therapy with continued taper as well as PO antibiotics and one can choose doxycycline along with vigorous pulmonary toilet and consider discharge within the next 24 hours with home health visitation as per the patient and family wishes to be set up would be preferable. We will be happy to see him in the clinic in 2-3 weeks' time in followup. ANGEL
--- NOTE | 2018-12-10 14:51 | Hospitalist Progress Note ---
Date of Service December 10, 2018 Subjective 83-year-old male with past medical history significant for COPD , chronic respiratory failure on home oxygen 2.5 L 24x7, abdominal aortic aneurysm status post percutaneous repair, history of asthma, CAD status post stent, chronic diastolic CHF, and gout, presents with shortness of breath and cough since last few days, bringing up whitish yellow phlegm. Denies fever, he also had some pain in the neck and radiating to the back. Neck pain is gone after the pain medication in the ER. Denies any headache. There is some reddish lesion on the right upper lid, which is slightly swollen but he is refusing to follow with ophthalmology as per son, but no blurred vision. No runny nose, no sore throat. He is supposed to be on soft diet as per the speech recommendation on last admission, but patient is eating regular food. He says he swallows okay, once in a while having some difficulty. No nausea, no vomiting, no abdominal pain. Normal bowel and bladder movements. Appetite is okay. Currently, resting comfortably and hemodynamically stable. Received steroids and nebs in the ER. ASSESSMENT AND PLAN: This is an 83-year-old male who presents due to chronic obstructive pulmonary disease exacerbation and found to have a Mycoplasma Pneumonia. 1. Chronic obstructive pulmonary disease exacerbation. Prednisone PO now, nebs around the clock and p.r.n. home inhalers. Chronic respiratory failure from COPD , On home oxygen. 2. Pneumonia, Mycoplasma Pneumonia Isolated. The patient history of dysphagia was seen by speech therapy at last admission 01/2018 and was recommended soft diet. The patient is not following this recommendation. He was supposed to follow with gastrointestinal but he did not follow up. CT scan is showing possible pneumonia versus aspiration pneumonitis. We replaced IV Unasyn and doxycycline c Rocephin and Flagyl. When Mycoplasma was isolated I placed back on Doxy IV. 3. Back pain currently resolved, we will monitor. 4. Acute kidney injury and chronic kidney disease stage III, baseline creatinine around 1.4, hold Lasix and lisinopril and monitor the labs. 5. Chronic diastolic congestive heart failure. Has mild pedal edema. Holding Lasix, getting fluids. We will also monitor for volume overload. 7. History of abdominal aortic aneurysm status post repair. 8 History of CVA on aspirin and statin. 9. BPH The patient is on Flomax. 10. Hypertension. Holding lisinopril. Continue clonidine, Lopressor. 11. Hyperlipidemia. Continue statin. 12. Gout. Continue allopurinol. 13. History of squamous cell carcinoma of the lip, surgical excision, currently having lesion in his right upper eyelid, needs to follow with dermatology or ophthalmology. 14. History of coronary artery disease status post stent placement. Currently, stable on aspirin, statin, and beta-hafsa. 15. History of pulmonary hypertension. 16. PAF? patinet on eliquis. Says his test carrier at [place] started it and don't know why it was started. 17. Deep vein thrombosis prophylaxis. on eliquis, dose reduced sec to renal fxn Continue Rocephin and Doxycycline 100 mg IV Q12, DC solumedrol, Prednisone 50 mg tonight, Pulm on case, Continue breathing treatments, His lungs are still getting better, he looks a lot better today, more lucid. Off IVFs. Contact isolation. Covering typicals and atypicals ROS-No Headache, No Visual Changes, No Nausea, No Vomiting, No Fever, No Chills , No Neck Pain or Stiffness, No Chest Pain, No Palpitations, + SOB, No GIBSON, No Cough, No Sputum, less Wheezing, No Abdominal Pain, No Diarrhea, No Hematemesis , No Hemoptysis, No Unexpected Weight Loss, No Flank pain, No Melena, No Hematochezia, No Frequency, No Urgency, No Burning, No Hematuria, No Rashes, No Diaphoresis. Appetite is Normal Physical Exam Gen-AAO x 3, NAD, Afebrile, Lucid today Head-NCAT, EOMI, PERRLA, Anicteric Sclera, No Posterior Pharyngeal Erythema Neck-Supple, No JVD, No Thyromegaly, No Masses, No LAD, No Bruits Lungs-Mild wheezing, No Rales, No Rhonchi, No Crepitus Chest-No S4, +S1, +S2, No S3, No Murmurs, No Rubs, No Gallops, No Ectopy Abdomen-Soft, Bowel Sounds Present, Non Tender, Non Distended, No Hepatomegaly, No Splenomegaly, No Palpable Masses, No Rebound, No Rigidity, No Guarding Musculoskeletal-Full Range of Motion Bilaterally, No CVAT Extremities-No Cyanosis, No Clubbing, No Edema Nuero-Cranial Nerves II-XII grossly intact, Motor WNL, DTRs WNL, Strength WNL, Non Focal Psych-Normal Mood Physical Exam 2 Vital Signs (Past 24 Hours): Last Vital Signs Temp 36.7 C 12/10/18 11:00 Pulse 76 12/10/18 14:17 Resp 20 12/10/18 14:17 BP 135/68 12/10/18 11:00 Pulse Ox 92 12/10/18 14:17 Results & Data Laboratory Results Allergies moxifloxacin Adverse Reaction (Mild, Verified 12/05/18 22:16) dizziness Height/Weight/Isolation Height 5 ft 9 in Weight 71.4 kg Isolation Type Contact Precautions Chemistry 12/09/18 12/10/18 06:47 07:10 Sodium 142 141 Potassium 3.6 3.6 Chloride 105 104 Carbon Dioxide 29 32 Anion Gap 8.0 5.0 BUN 31 H 30 H Creatinine 1.48 H 1.42 H Glucose 116 H 138 H Microbiology 12/09/18 21:30 Sputum, Expectorated Gram Stain - Final 12/09/18 21:30 Sputum, Expectorated Sputum Culture - Preliminary Moderate normal marv present, final report to follow. 12/09/18 09:50 Blood Blood Culture - Pending 12/09/18 08:25 Blood Blood Culture - Pending
[2018-12-10] MEDS: ASPIRIN 81 MG ECTAB PO SCH (20:13)
[2018-12-10] MEDS: PRAVASTATIN SOD 40 MG TAB PO SCH (20:14)
[2018-12-10] MEDS: predniSONE 50 MG TAB PO SCH (20:14)
[2018-12-10] MEDS: LISINOPRIL 10 MG TAB PO SCH (21:57)
[2018-12-10] MEDS: DONEPEZIL HCL 5 MG TAB PO SCH (21:58)
[2018-12-11] MEDS: IPRATROPIUM BROMIDE NEB SOLN 0.02% 2.5 ML VIAL INH SCH ×2 (02:28→07:08)
[2018-12-11] MEDS: LEVALBUTEROL 1.25MG/0.5ML NEB INH SCH ×2 (02:28→07:08)
[2018-12-11] MEDS: LEVOTHYROXINE SODIUM 50 MCG TABLET PO SCH (05:39)
[2018-12-11 06:42] LABS: Hematocrit (blood only) 39.1 % (42-52); Mean Corpuscular Hgb Conc 33.2 g/dL (32-36); Mean Corpuscular Volume 93.3 fL (80-100); Platelet Count 202 K/uL (130-400); RDW Coefficient of Variation 13.6 % (11.5-14.5); RDW Standard Deviation 46.3 fL (36.4-46.3); Red Blood Count 4.19 M/uL (4.7-6.1); White Blood Count 9.55 K/uL (4.8-10.8)
[2018-12-11 07:07] LABS: BUN Creatinine Ratio 21.4 (10-20); Calcium 7.8 mg/dl (8.5-10.1); Creatinine Clr Calc Pharmacy 35.6 ml/min; Est GFR (African American) 45.8; Est GFR (Non-African American) 39.5; Potassium 3.6 mmol/L (3.5-5.1)
--- NOTE | 2018-12-11 07:32 | Discharge Summary ---
Date of Service December 11, 2018 Admission HPI Per Admitting Provider 83-year-old male with past medical history significant for COPD , chronic respiratory failure on home oxygen 2.5 L 24x7, abdominal aortic aneurysm status post percutaneous repair, history of asthma, CAD status post stent, chronic diastolic CHF, and gout, presents with shortness of breath and cough since last few days, bringing up whitish yellow phlegm. Denies fever, he also had some pain in t the neck and radiating to the back. Neck pain is gone after the pain medication in the ER. Denies any headache. There is some reddish lesion on the right upper lid, which is slightly swollen but he is refusing to follow with ophthalmology as per son, but no blurred vision. No runny nose, no sore throat. He is supposed to be on soft diet as per the speech recommendation on last admission, but patient is eating regular food. He says he swallows okay, once in a while having some difficulty. No nausea, no vomiting, no abdominal pain. Normal bowel and bladder movements. Appetite is okay. Currently, resting comfortably and hemodynamically stable. Received steroids and nebs in the ER. Admission Exam Per Admitting Provider PHYSICAL EXAMINATION: GENERAL: The patient is alert and oriented, not in acute distress. VITAL SIGNS: Temperature 36.4, pulse 105, respiratory rate 30s, blood pressure 120/75, oxygen 82% on room air. HEENT: No pallor, no icterus. Pupils equal, round, and reactive to light. positive icterus. Erythematous changes on the right upper lid. NECK: No JVD, no carotid bruit. No neck masses. CARDIOVASCULAR: S1, S2 heard, regular rate and rhythm, no murmur, no gallop. RESPIRATORY SYSTEM: Bilaterally diminished breath sounds. No wheezing, no crackles. ABDOMEN: Soft, bowel sounds present. Nontender. No distention. CENTRAL NERVOUS SYSTEM: Cranial nerves II-XII grossly intact. Nonfocal. EXTREMITIES: Mild pedal edema, no erythema. Principal Diagnosis Atypical pneumonia COPD exacerbation secondary to pneumonia Respiratory failure with hypoxemia Coronary disease Chronic diastolic heart failure Hypertension Pulmonary hypertension BPH Hyperlipidemia History of CVA Gout Squamous cell carcinoma of the lip History of cardiac stent Discharge Exam ROS-No Headache, No Visual Changes, No Nausea, No Vomiting, No Fever, No Chills , No Neck Pain or Stiffness, No Chest Pain, No Palpitations, + SOB, No GIBSON, No Cough, No Sputum, less Wheezing, No Abdominal Pain, No Diarrhea, No Hematemesis , No Hemoptysis, No Unexpected Weight Loss, No Flank pain, No Melena, No Hematochezia, No Frequency, No Urgency, No Burning, No Hematuria, No Rashes, No Diaphoresis. Appetite is Normal Physical Exam Gen-AAO x 3, NAD, Afebrile, Lucid today Head-NCAT, EOMI, PERRLA, Anicteric Sclera, No Posterior Pharyngeal Erythema Neck-Supple, No JVD, No Thyromegaly, No Masses, No LAD, No Bruits Lungs-Mild wheezing, No Rales, No Rhonchi, No Crepitus Chest-No S4, +S1, +S2, No S3, No Murmurs, No Rubs, No Gallops, No Ectopy Abdomen-Soft, Bowel Sounds Present, Non Tender, Non Distended, No Hepatomegaly, No Splenomegaly, No Palpable Masses, No Rebound, No Rigidity, No Guarding Musculoskeletal-Full Range of Motion Bilaterally, No CVAT Extremities-No Cyanosis, No Clubbing, No Edema Nuero-Cranial Nerves II-XII grossly intact, Motor WNL, DTRs WNL, Strength WNL, Non Focal Psych-Normal Mood Discharge Data Allergies Allergy/AdvReac Type Severity Reaction Status Date / Time moxifloxacin AdvReac Mild dizziness Verified 12/05/18 22:16 Consultations 12/05/18 21:28 ED Decision to Admit Stat 12/06/18 00:18 Consult Case Management - Discharge Planning Routine 12/08/18 06:57 Consult Case Management - Discharge Planning Routine 12/08/18 07:37 Consult Pulmonology Routine 12/10/18 14:43 Consult Case Management - Discharge Planning Routine Ordered Studies 12/05/18 20:03 CT angio chest PE protocol Stat 12/09/18 07:25 CT head/brain wo con Urgent Allergies moxifloxacin Adverse Reaction (Mild, Verified 12/05/18 22:16) dizziness Height/Weight/Isolation Height 5 ft 9 in Weight 71.5 kg Isolation Type Contact Precautions Chemistry 12/09/18 12/10/18 12/11/18 06:47 07:10 06:18 Sodium 142 141 138 Potassium 3.6 3.6 3.6 Chloride 105 104 100 Carbon Dioxide 29 32 30 Anion Gap 8.0 5.0 7.0 BUN 31 H 30 H 34 H Creatinine 1.48 H 1.42 H 1.60 H Glucose 116 H 138 H 175 H Microbiology 12/09/18 09:50 Blood Blood Culture - Preliminary No growth to date. 12/09/18 08:25 Blood Blood Culture - Preliminary No growth to date. 12/06/18 00:46 Blood Blood Culture - Final No growth 12/06/18 00:45 Blood Blood Culture - Final No growth 12/09/18 21:30 Sputum, Expectorated Gram Stain - Final 12/09/18 21:30 Sputum, Expectorated Sputum Culture - Preliminary Moderate normal marv present, final report to follow. Hospital Course (1) Pneumonia: ASSESSMENT AND PLAN: This is an 83-year-old male who presents due to chronic obstructive pulmonary disease exacerbation and found to have a Mycoplasma Pneumonia. 1. Chronic obstructive pulmonary disease exacerbation. Prednisone PO now, nebs around the clock and p.r.n. home inhalers. Chronic respiratory failure from COPD , On home oxygen. 2. Pneumonia, Mycoplasma Pneumonia Isolated. The patient history of dysphagia was seen by speech therapy at last admission 01/2018 and was recommended soft diet. The patient is not following this recommendation. He was supposed to follow with gastrointestinal but he did not follow up. CT scan is showing possible pneumonia versus aspiration pneumonitis. We replaced IV Unasyn and doxycycline c Rocephin and Flagyl. When Mycoplasma was isolated I placed back on Doxy IV. 3. Back pain currently resolved, we will monitor. 4. Acute kidney injury and chronic kidney disease stage III, baseline creatinine around 1.4, hold Lasix and lisinopril and monitor the labs. 5. Chronic diastolic congestive heart failure. Has mild pedal edema. Holding Lasix, getting fluids. We will also monitor for volume overload. 7. History of abdominal aortic aneurysm status post repair. 8 History of CVA on aspirin and statin. 9. BPH The patient is on Flomax. 10. Hypertension. Holding lisinopril. Continue clonidine, Lopressor. 11. Hyperlipidemia. Continue statin. 12. Gout. Continue allopurinol. 13. History of squamous cell carcinoma of the lip, surgical excision, currently having lesion in his right upper eyelid, needs to follow with dermatology or ophthalmology. 14. History of coronary artery disease status post stent placement. Currently, stable on aspirin, statin, and beta-hafsa. 15. History of pulmonary hypertension. 16. PAF? pativon on eliquis. 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 17. Deep vein thrombosis prophylaxis. on eliquis, dose reduced sec to renal fxn Discharge home on Omnicef and Doxycycline 8 more days, Prednisone taper, follow- up with Pulm in the office, Continue breathing treatments, Covering typicals and atypicals. Patient had a relatively alida course, he had myopathy secondary to IV steroids, as well as steroid psychosis and sundowning, he was seen by Dr. Hart from pulmonary, he was positive for mycoplasma however pulmonary was not convinced that this was mycoplasma. He will go home on doxycycline and Omnicef for 8 more days. He will follow-up with Dr. Hart and his primary care physician. Total Time Total Time Spent Total Time Spent (In Minutes): 45 minutes Total Time Includes: Examination of the Patient, Discharge Planning, Medication Reconciliation and Communication With Other Providers Discharge Plan Discharge Items Patient Disposition: Home - Home Health Services Reason For Visit: SOB,BACK PAIN Discharge Diagnosis: Atypical pneumonia COPD exacerbation secondary to pneumonia Respiratory failure with hypoxemia Coronary disease Chronic diastolic heart failure Hypertension Pulmonary hypertension BPH Hyperlipidemia History of CVA Gout Squamous cell carcinoma of the lip History of cardiac stent Discharge Goals: Improve function and Improve nutritional status Activity: Resume your previous activity Lifting: None Bathing: No limitations Sexual Activity: When tolerated Exercise/Sports: Gradually increase as tolerated Driving/Machine Use: No limitations Weightbearing: Left weightbearing and Right weightbearing Non-emergency contact: Primary Care Provider and Tennis Desk Team Member Call non-emergency contact if: you have any medication questions, your symptoms worsen and your pain is worsening Follow-up/Referrals: Jonny Hart MD [Physician] - (Call for first opening) Ochoa Kelly [Primary Care Provider] - (We will help make an appointment) Diet: Heart Healthy Addtl Provider Instructions: Monitor for full resolution of pneumonia Prescriptions: New prednisone 10 mg tablet 10 mg PO DAILY Qty: 21 RF: 0 doxycycline monohydrate 100 mg capsule 100 mg PO BID Qty: 16 RF: 0 cefdinir 300 mg capsule 300 mg PO BID 12 Days Qty: 24 RF: 0 Continue furosemide 40 mg tablet 40 mg PO QAM RF: 0 ipratropium-albuterol 0.5 mg-3 mg(2.5 mg base)/3 mL Solution For Nebulization 3 ml INHALATION Q6H PRN (Reason: Shortness Of Breath Or Wheezing) RF: 0 donepezil 5 mg tablet 5 mg PO HS RF: 0 pravastatin 40 mg tablet 40 mg PO HS RF: 0 amlodipine 5 mg tablet 5 mg PO QAM RF: 0 aspirin 81 mg Tablet,Delayed Release (Dr/Ec) 81 mg PO QPM RF: 0 levothyroxine 50 mcg tablet 50 mcg PO QAM RF: 0 allopurinol 300 mg tablet 300 mg PO QAM RF: 0 lisinopril 5 mg tablet 5 mg PO HS RF: 0 furosemide 20 mg tablet 20 mg PO QAM RF: 0 apixaban [Eliquis] 5 mg tablet 5 mg PO BID RF: 0 ipratropium-albuterol [Combivent Respimat] 20-100 mcg/actuation mist 1 puff Inhalation Q6H PRN (Reason: Shortness Of Breath) RF: 0 fluticasone-vilanterol [Breo Ellipta] 200-25 mcg/dose Blister With Device 1 inh INHALATION DAILY PRN (Reason: Shortness Of Breath) RF: 0 Stand-Alone Forms: [facility] Discharge Orders: Discharge Order (Routine); Ordered 12/11/18 Ordered By: Celestino Wilson Admission Data Admit Date/Time: 12/05/18 22:11 Attending Provider: Celestino Wilson Admit Provider: Mukesh Rodriguez Primary Care Provider: Ochoa Kelly Other Providers: Mukesh Rodriguez ; Jonny Hart Service: Telemetry Medical
[2018-12-11] MEDS: predniSONE 50 MG TAB PO SCH (08:21)
[2018-12-11] MEDS: FUROSEMIDE 20 MG TAB PO SCH (08:21)
[2018-12-11] MEDS: ISOSORBIDE MONO EXTENDED REL 30 MG TABCR PO SCH (08:21)
[2018-12-11] MEDS: APIXABAN 2.5 MG TAB PO SCH (08:22)
[2018-12-11] MEDS: AMLODIPINE BESYLATE 5 MG TAB PO SCH (08:22)
[2018-12-11] MEDS: ALLOPURINOL 300 MG TAB PO SCH (08:22)
[2018-12-11] MEDS: cefTRIAXone SODIUM 1,000 MG in DEXTROSE 5% 50 ML IV SCH (08:28)
[2018-12-11] MEDS: DOXYCYCLINE HYCLATE 100 MG in DEXTROSE 5% 100 ML IV SCH (09:55)
== END 2018-12-11 11:08 | disposition home health service (06) ==
LOC: ED 19:06 → 2N 22:11

== ENCOUNTER 2019-03-19 20:16 | Inpatient (IN) ==
--- OUTSIDE RECORDS SUMMARY | 2019-03-19 20:19 | External Medical Summary | Continuity of Care Document ---
:1935 Author Name Gretta Valentin, Provider Address Unavailable Unavailable , Care Team Providers Name Role Phone Amol TAN, [email or web address] Unavailable Unavailable Unavailable Unavailable Unavailable Problems Awakening At Night Short Of Breath (786.09) Incomplete emptying of bladder (788.21) (R33.9) Hypertension (401.9) (I10) Hyperlipidemia (272.4) (E78.5) Hypercholesterolemia (272.0) (E78.00) Benign prostatic hypertrophy with urinary obstruction (600.0 1) (N40.1) Gross hematuria (599.71) (R31.0) Aneurysm of abdominal aorta (441.4) (I71.4) Acute bronchitis (466.0) (J20.9) Hernia (553.9) (K46.9) Asthmatic bronchitis (493.90) (J45.909) Abnormal chest x-ray (793.2) (R93.89) Hip pain, left (719.45) (M25.552) Aspiration pneumonia (507.0) (J69.0) Lumbar pain with radiation down left leg (724.2) (M54.5) Chest congestion (786.9) (R09.89) Aortic stenosis (424.1) (I35.0) Chest pain (786.50) (R07.9) Pulmonary hypertension (416.8) (I27.20) Atrial fibrillation (427.31) (I48.91) Cough (786.2) (R05) Dependence on supplemental oxygen (V46.2) (Z99.81) Dyspnea (786.09) (R06.00) Chronic obstructive pulmonary disease (496) (J44.9) Allergies and Adverse Reactions Avelox TABS (Allergy) Reaction: Dizzines s, Shortness of breath Medications Aspirin 81 MG TABS; TAKE 1 TABLET DAILY. Quantity: 30 Refills: 5 Ipratropium-Albuterol 0.5-2.5 (3) MG/3ML Inhalation Solution; USE ONE VIAL VIA NEBULIZER EVERY 4 HOURS WHILE AWAKE. DOMINICK Carmichael Start: 6 Quantity: 3 3 ML Vial (60 Vials) Refills: 5 Metoprolol Tartrate 50 MG Oral Tablet; TAKE 1 TABLET TWICE D AILY. Refills: 0 Furosemide TABS; Take 20mg plus 40mg daily Refills: 0 Breo Ellipta 200-25 MCG/INH Inhalation A erosol Powder Breath Activated; INHALE 1 PUFFS Daily DOMINICK Carmichael Start: 21-Nov-2014 Quantity: 1 28 Inhaler Pack Refills: 0 Pravastatin Sodium 40 MG Oral Tablet; TAKE 1 TABLET BY MOUTH ONCE DAILY. Quantity: 30 Refills: 5 Oxygen; 2-3 LPM 24/7 (3 LPM with activity) Refills: 0 Daliresp 500 MCG Oral Tablet; TAKE 1 TABLET DAILY. ROSELINE Carmichael Start: 28-Sep-2018 Quantity: 30 Refills: 5 Eliquis 5 MG Oral Tablet; Take 1 tablet twice daily Elvin Carmichael Quantity: 60 Refills: 5 Tamsulosin HCl - 0.4 MG Oral Capsule; TAKE 1 CAPSULE Daily Refills: 0 Combivent Respimat 20-100 MCG/ACT Inhala tion Aerosol Solution; INHALE 1 PUFFS 4 times daily DOMINICK aCrmichael Start: 24-Feb-2019 Quantity: 1 4 GM Inhaler Refills: 5 ProAir HFA 108 (90 Base) MCG/ACT Inhalation Aerosol Solution Refills: 0 amLODIPine Besylate 5 MG Oral Tablet Refills: 0 Lisinopril 5 MG Oral Tablet; TAKE 1 TABLET DAILY. Quantity: 30 Refills: 5 Procedures History of Cath Stent Placement Status: Completed History of Hernia Repair Status: Complet ed History of Knee Replacement Status: Comp leted Immunizations Pneumococcal polysaccharide vaccine, 23 valent On: 13-Aug-20 05 Pneumococcal polysaccharide vaccine, 23 valent On: Influenza On: 2011 Fluzone High-Dose Intramuscular Suspension On: 05-Aug-2017 1 6:29 Lot #: [id number], [employer] Family History Unknown Family Member Family history of Heart Disease (V17.49) Status: Active Comments: Family History Family history of Hypertension (V17.49) Status: Active Comments: Family History Family history of Cancer Status: Active Comments: Famil y History Social History - Smoking Status Former smoker Plan of Treatment Planned Encounters Appointment; Morgan Carmichael PA-C Start: 12-Apr-2019 10:45 Re quest Planned Observations Planned Goals not documented Results No Known Results Results not documented Encounters Appointment; Morgan Carmichael PA-C 28-Sep-2018 9:45 Encounter Diagnosis: Problem not documented Appointment; Morgan Carmichael PA-C 03-Aug-2018 9:45 Encounter Diagnosis: Problem not documented Appointment; Morgan Carmichael PA-C 06-Jul-2018 16:00 Encounter Diagnosis: Problem not documented Appointment; Morgan Carmichael PA-C 22-Jun-2018 15:45 Encounter Diagnosis: Problem not documented Appointment; Morgan Carmichael PA-C 09-Jun-2018 15:45 Encounter Diagnosis: Problem not documented Appointment; Morgan Carmichael PA-C 11-May-2018 15:45 Encounter Diagnosis: Problem not documented Appointment; Morgan Carmichael PA-C 02-Mar-2018 15:30 Encounter Diagnosis: Problem not documented Appointment; Morgan Carmichael PA-C 19-Jan-2018 15:30 Encounter Diagnosis: Problem not documented Appointment; Morgan Carmichael PA-C 28-Oct-2017 15:45 Encounter Diagnosis: Problem not documented Appointment; Morgan Carmichael PA-C 05-Aug-2017 15:45 Encounter Diagnosis: Problem not documented Appointment; Morgan Carmichael PA-C 21-Apr-2017 15:45 Encounter Diagnosis: Problem not documented Appointment; Morgan Carmichael PA-C 12-Apr-2019 10:45 Encounter Diagnosis: Problem not documented
--- NOTE | 2019-03-19 20:59 | XRay Report ---
XR chest 1V portable HISTORY: Shortness of breath. COMPARISON: Chest 12/05/2018. FINDINGS: The heart is normal in size. Emphysema. No pleural effusions. No pneumothorax. Bibasilar in terstitial thickening/densities remain unchanged. This likely represents crowding from the emphysema. No new focal lung consolidations. No evidence for pulmonary edema. IMPRESSION: No significant change compared to the prior study. No acute process. Emphysema. Bibasilar densities p ersist and favor crowding from the emphysema. Electronically signed by: Alejandro Spence M.D. 03/19/2019 8:58 PM
[2019-03-19 21:21] LABS: Basophils # (auto) 0.01 K/uL (0-0.2); Basophils % (auto) 0.1 %; Eosinophils # (auto) 0.06 K/uL (0-0.5); Eosinophils % (auto) 0.5 %; Hematocrit (blood only) 40.4 % (42-52); Hemoglobin 12.9 g/dL (14.0-18.0); Immature Granulocytes # (auto) 0.04 K/uL (0.00-0.02); Immature Granulocytes % (auto) 0.3 %; Lymphocytes # (auto) 0.87 K/uL (1.2-3.4); Lymphocytes % (auto) 7.5 %; Mean Corpuscular Hgb Conc 31.9 g/dL (32-36); Mean Corpuscular Volume 95.3 fL (80-100); Mean Platelet Volume 9.7 fL (7.4-10.4); Monocytes # (auto) 1.01 K/uL (0.11-0.59); Monocytes % (auto) 8.7 %; Neutrophils # (auto) 9.66 K/uL (1.4-6.5); Neutrophils % (auto) 82.9 %; Platelet Count 215 K/uL (130-400); RDW Coefficient of Variation 14.3 % (11.5-14.5); RDW Standard Deviation 50.1 fL (36.4-46.3); Red Blood Count 4.24 M/uL (4.7-6.1); White Blood Count 11.65 K/uL (4.8-10.8)
[2019-03-19 21:37] LABS: Partial Thromboplastin Ratio 1.2; Partial Thromboplastin Time 32.3 Seconds (21.0-31.0); Prothrombin Time 10.4 Seconds (9.0-12.0)
[2019-03-19 21:39] LABS: Alanine Aminotransferase 16 U/L (12-78); Albumin Level 3.4 gm/dl (3.4-5.0); Aspartate Aminotransferase 16 U/L (15-37); BUN Creatinine Ratio 13.2 (10-20); Blood Urea Nitrogen 21 mg/dl (7-18); Calcium 9.3 mg/dl (8.5-10.1); Carbon Dioxide 33 mmol/L (21-32); Chloride 102 mmol/L (98-107); Creatinine Clr Calc Pharmacy 36.5 ml/min; Est GFR (African American) 47.2; Est GFR (Non-African American) 40.8; Glucose 120 mg/dl (70-99); Potassium 4.2 mmol/L (3.5-5.1); Sodium 141 mmol/L (136-145)
[2019-03-19 21:43] LABS: Albumin Globulin Ratio 0.9 (0.9-2); Alkaline Phosphatase 48 U/L (45-117); Bilirubin,Total 0.9 mg/dl (0.2-1); Globulin 3.7 gm/dl (2.5-4.0); Total Protein 7.1 gm/dl (6.4-8.2); Troponin I < 0.015 ng/ml (0-0.045)
[2019-03-19] MEDS ORDERED: MoRPHine SULFATE 2 MG/ML CARP IV STA (22:04)
[2019-03-19] MEDS ORDERED: ALBUT/IPRATROP 3MG/0.5MG NEB 3 ML VIAL NEB STA (22:04)
[2019-03-19] MEDS ORDERED: OPTIRAY 320 125ml IV PRN (22:40)
--- NOTE | 2019-03-19 23:12 | CT Scan Report ---
CHEST, ABDOMEN, AND PELVIS CTA for AORTIC DISSECTION CT DOSE: 994.41 mGy.cm HISTORY: Short of breath, cough, left lower chest pain TECHNIQUE: Multiaxial CT images of the chest were performed both before and after the intravenous adm inistration of contrast to evaluate the aorta. Maximal intensity projection images were also obtained . A dose lowering technique was utilized adhering to the principles of ALARA. COMPARISON STUDY: Chest CTA 12/05/2018. Abdomen and pelvis CT 08/11/2017. FINDINGS: Noncontrast imaging through the chest shows no evidence for an intramural hematoma within t he thoracic aorta. Calcified plaque within the normal caliber thoracic aorta. No evidence for an aort ic dissection. No mediastinal or hilar lymphadenopathy. No pleural or pericardial effusions. Old, hea led right-sided rib fractures. No acute fractures identified within the chest. The central pulmonary arteries are patent. No pneumothorax. Advanced emphysema. Small amount of mucoid material within the bronchus intermedius. There is a new 8 mm nodule within the left lower lobe on image 168. Stable 2.0 x 1.4 cm nodule within the lingula abutting the major fissure on image 204. Small focal area of conso lidation within the left lower lobe posteriorly. This is slightly progressed compared to the prior st udy. There is also a focal area of dense consolidation within the right lower lobe posteriorly measur ing 6.2 cm. This is new from the prior study. Therefore, these areas of consolidation could represent pneumonia, possibly secondary to aspiration. There is a new 7 mm nodule within the right lower lobe on image 162. Stable 6 mm nodule within the right upper lobe on image 113. Normal esophagus. Focal aneurysmal dilatation of the junction of the descending thoracic aorta/abdominal aorta measurin g 2.6 x 3.4 cm. This remains unchanged. Aortobiiliac stent graft repair of an abdominal aortic aneury sm. The aneurysm sac is similar size measuring 5.8 x 5.6 cm. No evidence for an endoleak on this stud y. No evidence for an aortic dissection. Moderate stenosis at the origin of the right renal artery. T he liver and spleen are unremarkable. Bilateral cortical renal scarring is noted. No hydronephrosis. There is a punctate stone within the lower pole the left kidney. No retroperitoneal lymphadenopathy. Multiple tiny stones within the gallbladder. The gallbladder is mildly distended. However, no gallbla dder wall thickening. Common bile duct remains normal in caliber. Focal mild dilatation of the distal main pancreatic duct within the pancreatic head measuring up to 9 mm. This has progressed the interv al. The proximal main pancreatic duct is not significantly dilated. Mild bladder wall thickening may be due to chronic outlet obstruction. The prostate gland is enlarged. Moderate well-formed stool with in the colon. No bowel wall thickening or obstruction. Normal appendix. IMPRESSION: 1. No evidence for an aortic dissection. 2. Stable aneurysmal dilatation of the abdominal aorta as described above status post aortobiiliac st ent graft repair. 3. Bilateral lower lobe focal areas of consolidation. This favors a pneumonia. Follow-up chest x-ray in one to 2 months is recommended to ensure resolution. 4. Advanced emphysema. 5. A few new subcentimeter indeterminate pulmonary nodules within the lungs. Six-month chest CT follo w-up recommended. 6. Mildly distended gallbladder which has progressed. There are multiple punctate gallstones. No gall bladder wall thickening. Clinical correlation recommended to assess for the possibility of a developi ng acute cholecystitis. 7. Focal dilatation of the distal main pancreatic duct. 8. Additional findings as described above. Electronically signed by: Alejandro Spence M.D. 03/19/2019 11:10 PM
[2019-03-19] MEDS ORDERED: AZITHROMYCIN 250 MG TAB PO ONE (23:15)
[2019-03-19] MEDS ORDERED: AMPICILLIN/SULBACTAM SOD 3,000 MG in 0.9 % SODIUM CHLORIDE 100 ML IV STA (23:15)
[2019-03-19] MEDS ORDERED: methylPREDNISolone 60 MG in SYRINGE 1 ML IV STA (23:28)
[2019-03-19] MEDS ORDERED: methylPREDNISolone 125 MG/2 ML VIAL ONE (23:38)
[2019-03-19 23:44] LABS: Magnesium 2.2 mg/dl (1.8-2.4)
--- NOTE | 2019-03-19 23:54 | Emergency Department Note ---
Entered by Sherry Werner acting as a scribe for Roshan Addison M.D. History of Present Illness General Chief complaint: Shortness of Breath/Dyspnea Stated complaint: SPITTING UP BLOOD,CAN'T BREATH,ABD ABD Source: patient History of Present Illness Onset (ago): hour(s) (this morning) Location: chest (shortness of breath) and abdomen Radiation: non-radiation Pain Consistency: + other (worsening) Maximum Pain Intensity: 7 Relieved By: not by medication (2 Tylenol ) Associated symptoms: + denies other symptoms (diarrhea and back pain), + fever/chills (intermittent fever), + nausea/vomiting (positive nausea, negative vomiting) and + other (mild leg swelling, blood in spit, and increased bowel movement frequency) The patient is a 83 year old M who presents to the Emergency Room with complaints of worsening lower abdominal pain and shortness of breath that started this morning. The patient states that he had a doughnut to eat this morning. He adds that after eating, he sat down when his symptoms started. He notes that he has not had anything to eat all day other than the doughnut. He states that his abdominal pain does not radiate anywhere else. He notes that he is currently experiencing an intermittent fever, mild leg swelling, nausea, blood in spit, and increased bowel movement frequency. He denies experiencing a cough, diarrhea, and back pain. He also denies experiencing any recent falls. He notes that he has a history of COPD and emphysema. He adds that the last time he was in the ED he had pneumonia. He also notes a history of an aneurysm. He states that he is on the blood thinner Eliquis. He adds that last week he experienced a nose bleed that lasted for 2 days due to the Eliquis. He notes taking 2 Tylenol prior to arrival to no relief. Home Medications Home Medications Medication Instructions Recorded Confirmed Type allopurinol 300 mg PO QAM 12/05/18 03/19/19 History amlodipine 5 mg PO QAM 12/05/18 03/19/19 History apixaban 5 mg PO BID 12/05/18 03/19/19 History aspirin 81 mg PO QPM 12/05/18 03/19/19 History donepezil 5 mg PO HS 12/05/18 03/19/19 History furosemide 20 mg PO QAM 12/05/18 03/19/19 History furosemide 40 mg PO QAM 12/05/18 03/19/19 History ipratropium-albuterol 3 ml INHALATION Q6H PRN 12/05/18 03/19/19 History levothyroxine 50 mcg PO QAM 12/05/18 03/19/19 History lisinopril 5 mg PO HS 12/05/18 03/19/19 History pravastatin 40 mg PO HS 12/05/18 03/19/19 History albuterol sulfate [ProAir HFA] 2 puff INHALATION QID PRN 03/19/19 03/19/19 History fluticasone propion-salmeterol 1 inh INHALATION BID 03/19/19 03/19/19 History [Advair Diskus] ipratropium-albuterol [Combivent 2 puff INHALATION Q6H PRN 03/19/19 03/19/19 History Respimat] metoprolol tartrate 50 mg PO BID 03/19/19 03/19/19 History potassium chloride 10 meq PO QAM 03/19/19 03/19/19 History Allergies Allergy/AdvReac Type Severity Reaction Status Date / Time moxifloxacin AdvReac Mild dizziness Verified 03/19/19 22:13 Past Med/Surg History Medical History CAD (coronary artery disease) (Chronic) "s/p stent" Chronic diastolic heart failure (Chronic) "Echo 09/2014- EF 55-60%, grade 1 diastolic dysfunction" On 03/14/15 19:57 Frances Carpenter wrote "Echo 10/26- EF 55-60%, grade 1 diastolic dysfunction" On 03/14/15 19:51 Frances Carpenter wrote "EF 55-60%" Hx MRSA infection (Chronic) "per records" Hypertension (Chronic) Dependence on continuous supplemental oxygen (Chronic) Pulmonary hypertension (Chronic) "Moderate on echo 09/2014" Hx of pulmonary aspiration (Chronic) Benign enlargement of prostate (Chronic) Mixed hyperlipidemia (Chronic) AAA (abdominal aortic aneurysm) without rupture (Chronic) Pulmonary emphysema (Chronic) History of CVA (cerebrovascular accident) without residual deficits (Resolved) Gout (Chronic) H/O seborrheic keratosis (Chronic) Squamous cell carcinoma of lip (Resolved) Chest pain Surgical History S/P knee replacement (Chronic) Hx of squamous cell carcinoma excision (Chronic) "upper lip" S/P coronary artery stent placement (Chronic) "2006 and 2008" S/P hernia repair (Chronic) S/P AAA repair (Chronic) Family History Other No significant family history Social History Preferred Language: Faroese Communication Ability: Effective Beliefs That Will Affect Care: None Current Living Situation: Alone Feels Safe at Home: Yes Smoking Status: Former smoker Hx Alcohol Use: No Hx Substance Use: No Review of Systems See HPI for pertinent positives & negatives. and A total of 10 systems reviewed and were otherwise negative Physical Exam Vital Signs Vital Signs - 24 hr 03/19/19 20:21 03/19/19 20:48 03/19/19 21:11 Temperature 36.7 C Temperature Source Oral Sepsis Recent Fever Within 48 Hours No Sepsis Action Taken by Nursing No Action Required Pulse Rate 87 84 Pulse Rate [Apical] Pulse Rate from SpO2 Sensor 84 Pulse Rhythm [Apical] Pulse Strength [Apical] Respiratory Rate 20 20 Respiratory Effort / Characteristics Non-Labored Spontaneous Respiratory Depth Normal Respiratory Pattern Regular Blood Pressure 162/80 H 143/96 H Blood Pressure [Left Arm] Blood Pressure Mean 107 111 Blood Pressure Mean [Left Arm] Blood Pressure Position Sitting Pulse Oximetry 87 L 93 98 Oxygen Delivery Method Room Air Nasal Cannula Nasal Cannula Oxygen Flow Rate 2.5 2.5 03/19/19 21:30 03/19/19 22:00 03/19/19 22:15 Temperature Temperature Source Sepsis Recent Fever Within 48 Hours Sepsis Action Taken by Nursing Pulse Rate 83 Pulse Rate [Apical] 87 88 Pulse Rate from SpO2 Sensor 82 Pulse Rhythm [Apical] Pulse Strength [Apical] Respiratory Rate 18 18 16 Respiratory Effort / Characteristics Non-Labored Spontaneous Respiratory Depth Respiratory Pattern Blood Pressure 143/76 H Blood Pressure [Left Arm] 169/87 H Blood Pressure Mean 98 Blood Pressure Mean [Left Arm] 114 Blood Pressure Position Pulse Oximetry 94 95 95 Oxygen Delivery Method Nasal Cannula Nasal Cannula Nasal Cannula Oxygen Flow Rate 2.5 2.5 2.5 03/19/19 23:42 Temperature Temperature Source Sepsis Recent Fever Within 48 Hours Sepsis Action Taken by Nursing Pulse Rate Pulse Rate [Apical] 96 H Pulse Rate from SpO2 Sensor Pulse Rhythm [Apical] Regular Pulse Strength [Apical] Normal Respiratory Rate 22 Respiratory Effort / Characteristics Non-Labored Spontaneous Respiratory Depth Normal Respiratory Pattern Blood Pressure Blood Pressure [Left Arm] 143/86 H Blood Pressure Mean Blood Pressure Mean [Left Arm] 105 Blood Pressure Position Pulse Oximetry 95 Oxygen Delivery Method Nasal Cannula Oxygen Flow Rate 3 GENERAL: Awake, alert, well-appearing, in no distress HENT: Normocephalic, atraumatic. EYES: Normal conjunctiva. Sclera non-icteric. NECK: Supple. No nuchal rigidity. RESPIRATORY: Expiratory wheezes. Normal respiratory effort. CARDIAC: Normal rate. Normal rhythm. Extremities warm and well perfused. GI: Soft, non-distended. Left lower costal and left upper quadrant tenderness. No rebound or guarding. No masses. RECTAL: Deferred. MUSCULOSKELETAL: Atraumatic. Chest examination minimal left lower costal pain. LOWER EXTREMITIES: Calves are equal size bilaterally and non-tender. Trace edema NEURO: Normal sensorium. No sensory or motor deficits noted. No facial droop. SKIN: Warm and dry. No rash or jaundice noted. Course 2154: The patient was evaluated in room A11B. A complete history and physical exam was performed. 2318: I re-checked the patient and updated him on his test results. 2325: I [facility] the [facility] will evaluate the patient for further management. Consultations Consultation #1: I reviewed the patient's [facility] He will evaluate the patient for further management. Time: 23:25 Administered Medications Ioversol (Optiray 320 125ml) 120 ml IV ONCE PRN PRN Reason: Interaction Checking Stop: 03/23/19 22:39 Last Admin: 03/19/19 22:40 Dose: 120 ml Documented by: [id number] Discontinued Medications Albuterol (Duoneb) 3 ml NEB NOW STA Stop: 03/19/19 22:05 Last Admin: 03/19/19 22:13 Dose: 3 ml Documented by: [id number] Azithromycin (Zithromax) 500 mg PO NOW ONE Stop: 03/19/19 23:16 Last Admin: 03/19/19 23:37 Dose: 500 mg Documented by: [id number] Ampicillin Sodium/Sulbactam Sodium 3,000 mg/ Sodium Chloride 108 mls @ 200 mls/hr IV NOW STA; Protocol Stop: 03/19/19 23:47 Last Admin: 03/19/19 23:37 Dose: 200 mls/hr Documented by: [id number] Methylprednisolone 60 mg/ (Syringe) 1.96 mls @ 1.5 mls/min IV NOW STA Stop: 03/19/19 23:29 Last Admin: 03/19/19 23:40 Dose: Not Given Documented by: [id number] Methylprednisolone (Solumedrol) Confirm Administered Dose 125 mg .ROUTE .STK-MED ONE Stop: 03/19/19 23:39 Last Admin: 03/19/19 23:40 Dose: 60 mg Documented by: [id number] Morphine Sulfate (Morphine Sulfate) 2 mg IV NOW Stop: 03/19/19 22:05 Last Admin: 03/19/19 22:11 Dose: 2 mg Documented by: [id number] Medical Decision Making Differential Diagnosis Differential diagnosis includes: infections, reactive airway disease, pneumonia, pneumothorax, COPD, CHF, cardiac ischemia, pulmonary embolism, musculoskeletal, gastrointestinal, appendicitis, diverticulitis, PUD, biliary pathology, UTI, p ancreatitis, obstruction, mesenteric ischemia, aortic pathology, infections, inflammatory bowel disease, renal colic, as well as others were entertained. Medical Records Attestation: I reviewed the patient's medical records. Home Medications Current Medication List: was personally reviewed by me Laboratory Data Attestation: I reviewed the patient's lab results. Result diagrams: 03/19/19 21:08 03/19/19 21:08 Lab Results 03/19/19 03/19/19 03/19/19 Range/Units 21:08 21:08 21:08 WBC 11.65 H (4.8-10.8) K/uL RBC 4.24 L (4.7-6.1) M/uL Hgb 12.9 L (14.0-18.0) g/dL Hct 40.4 L (42-52) % MCV 95.3 (80-100) fL MCH 30.4 (25-34) pg MCHC 31.9 L (32-36) g/dL RDW Std Deviation 50.1 H (36.4-46.3) fL RDW Coeff of Lety 14.3 (11.5-14.5) % Plt Count 215 (130-400) K/uL MPV 9.7 (7.4-10.4) fL Immature Gran % (Auto) 0.3 % Neut % (Auto) 82.9 % Lymph % (Auto) 7.5 % Ada % (Auto) 8.7 % Eos % (Auto) 0.5 % Baso % (Auto) 0.1 % Immature Gran # (Auto) 0.04 H (0.00-0.02) K/uL Neut # (Auto) 9.66 H (1.4-6.5) K/uL Lymph # (Auto) 0.87 L (1.2-3.4) K/uL Ada # (Auto) 1.01 H (0.11-0.59) K/uL Eos # (Auto) 0.06 (0-0.5) K/uL Baso # (Auto) 0.01 (0-0.2) K/uL PT 10.4 (9.0-12.0) Seconds INR 1.0 (0.9-1.1) APTT 32.3 H (21.0-31.0) Seconds PTT Ratio 1.2 Sodium 141 (136-145) mmol/L Potassium 4.2 (3.5-5.1) mmol/L Chloride 102 (98-107) mmol/L Carbon Dioxide 33 H (21-32) mmol/L Anion Gap 6.0 (3-11) BUN 21 H (7-18) mg/dl Creatinine 1.56 H (0.6-1.4) mg/dl Est Cr Clr Drug Dosing 36.5 ml/min Est GFR ( Amer) 47.2 Est GFR (Non-Af Amer) 40.8 BUN/Creatinine Ratio 13.2 (10-20) Glucose 120 H (70-99) mg/dl Calcium 9.3 (8.5-10.1) mg/dl Magnesium 2.2 (1.8-2.4) mg/dl Total Bilirubin 0.9 (0.2-1) mg/dl AST 16 (15-37) U/L ALT 16 (12-78) U/L Alkaline Phosphatase 48 (45-117) U/L Troponin I < 0.015 (0-0.045) ng/ml Total Protein 7.1 (6.4-8.2) gm/dl Albumin 3.4 (3.4-5.0) gm/dl Globulin 3.7 (2.5-4.0) gm/dl Albumin/Globulin Ratio 0.9 (0.9-2) Lipase 135 (73-393) U/L Imaging Data Radiologist's Impression: Radiology results as stated below per my review and the radiologist's interpretation: XR chest 1V portable HISTORY: Shortness of breath. COMPARISON: Chest 12/05/2018. FINDINGS: The heart is normal in size. Emphysema. No pleural effusions. No pneumothorax. Bibasilar interstitial thickening/densities remain unchanged. This likely represents crowding from the emphysema. No new focal lung consolidations. No evidence for pulmonary edema. IMPRESSION: No significant change compared to the prior study. No acute process. Emphysema. Bibasilar densities persist and favor crowding from the emphysema. Electronically signed by: Alejandro Spence M.D. 03/19/2019 8:58 PM CHEST, ABDOMEN, AND PELVIS CTA for AORTIC DISSECTION CT DOSE: 994.41 mGy.cm HISTORY: Short of breath, cough, left lower chest pain TECHNIQUE: Multiaxial CT images of the chest were performed both before and after the intravenous administration of contrast to evaluate the aorta. Maximal intensity projection images were also obtained. A dose lowering technique was utilized adhering to the principles of ALARA. COMPARISON STUDY: Chest CTA 12/05/2018. Abdomen and pelvis CT 08/11/2017. FINDINGS: Noncontrast imaging through the chest shows no evidence for an intramu ral hematoma within the thoracic aorta. Calcified plaque within the normal caliber thoracic aorta. No evidence for an aortic dissection. No mediastinal or hilar lymphadenopathy. No pleural or pericardial effusions. Old, healed right- sided rib fractures. No acute fractures identified within the chest. The central pulmonary arteries are patent. No pneumothorax. Advanced emphysema. Small amount of mucoid material within the bronchus intermedius. There is a new 8 mm nodule within the left lower lobe on image 168. Stable 2.0 x 1.4 cm nodule within the lingula abutting the major fissure on image 204. Small focal area of consolidation within the left lower lobe posteriorly. This is slightly progres sed compared to the prior study. There is also a focal area of dense consolidation within the right lower lobe posteriorly measuring 6.2 cm. This is new from the prior study. Therefore, these areas of consolidation could represent pneumonia, possibly secondary to aspiration. There is a new 7 mm nodu le within the right lower lobe on image 162. Stable 6 mm nodule within the right upper lobe on image 113. Normal esophagus. Focal aneurysmal dilatation of the junction of the descending thoracic aort a/abdominal aorta measuring 2.6 x 3.4 cm. This remains unchanged. Aortobiiliac stent graft repair of an abdominal aortic aneurysm. The aneurysm sac is similar size measuring 5.8 x 5.6 cm. No evidence for an endoleak on this study. No evidence for an aortic dissection. Moderate stenosis at the origin of the right renal artery. The liver and spleen are unremarkable. Bilateral cortical renal scarring is noted. No hydronephrosis. There is a punctate stone within the lower pole the left kidney. No retroperitoneal lymphadenopathy. Multiple tiny stones within the gallbladder. The gallbladder is mildly distended. However, no gallbladder wall thickening. Common bile duct remains normal in caliber. Focal mild dilatation of the distal main pancreatic duct within the pancreatic head measuring up to 9 mm. This has progressed the interval. The proximal main pancreatic duct is not significantly dilated. Mild bladder wall thickening may be due to chronic outlet obstruction. The prostate gland is enlarged. Moderate well-formed stool within the colon. No bowel wall thickening or obstruction. Normal appendix. IMPRESSION: 1. No evidence for an aortic dissection. 2. Stable aneurysmal dilatation of the abdominal aorta as described above status post aortobiiliac stent graft repair. 3. Bilateral lower lobe focal areas of consolidation. This favors a pneumonia. Follow-up chest x-ray in one to 2 months is recommended to ensure resolution. 4. Advanced emphysema. 5. A few new subcentimeter indeterminate pulmonary nodules within the lungs. Six-month chest CT follow-up recommended. 6. Mildly distended gallbladder which has progressed. There are multiple punctate gallstones. No gallbladder wall thickening. Clinical correlation recommended to assess for the possibility of a developing acute cholecystitis. 7. Focal dilatation of the distal main pancreatic duct. 8. Additional findings as described above. Electronically signed by: Alejandro Spence M.D. 03/19/2019 11:10 PM CHEST, ABDOMEN, AND PELVIS CTA for AORTIC DISSECTION CT DOSE: 994.41 mGy.cm HISTORY: Short of breath, cough, left lower chest pain TECHNIQUE: Multiaxial CT images of the chest were performed both before and after the intravenous administration of contrast to evaluate the aorta. Maximal intensity projection images were also obtained. A dose lowering technique was utilized adhering to the principles of ALARA. COMPARISON STUDY: Chest CTA 12/05/2018. Abdomen and pelvis CT 08/11/2017. FINDINGS: Noncontrast imaging through the chest shows no evidence for an intramural hematoma within the thoracic aorta. Calcified plaque within the normal caliber thoracic aorta. No evidence for an aortic dissection. No mediastinal or hilar lymphadenopathy. No pleural or pericardial effusions. Old, healed right-sided rib fractures. No acute fractures identified within the chest. The central pulmonary arteries are patent. No pneumothorax. Advanced emphysema. Small amount of mucoid material within the bronchus intermedius. There is a new 8 mm nodule within the left lower lobe on image 168. Stable 2.0 x 1.4 cm nodule within the lingula abutting the major fissure on image 204. Small focal area of consolidation within the left lower lobe posteriorly. This is slightly progressed compared to the prior study. There is also a focal area of dense consolidation within the right lower lobe posteriorly measuring 6.2 cm. This is new from the prior study. Therefore, these areas of consolidation could represent pneumonia, possibly secondary to aspiration. There is a new 7 mm nodule within the right lower lobe on image 162. Stable 6 mm nodule within the right upper lobe on image 113. Normal esophagus. Focal aneurysmal dilatation of the junction of the descending thoracic aorta/ab dominal aorta measuring 2.6 x 3.4 cm. This remains unchanged. Aortobiiliac stent graft repair of an abdominal aortic aneurysm. The aneurysm sac is similar size measuring 5.8 x 5.6 cm. No evidence for an endoleak on this study. No evidence for an aortic dissection. Moderate stenosis at the origin of the right renal artery. The liver and spleen are unremarkable. Bilateral cortical renal scarring is noted. No hydronephrosis. There is a punctate stone within the lower pole the left kidney. No retroperitoneal lymphadenopathy. Multiple tiny stones within the gallbladder. The gallbladder is mildly distended. However, no gallbladder wall thickening. Common bile duct remains normal in caliber. Focal mild dilatation of the distal main pancreatic duct within the pancreatic head measuring up to 9 mm. This has progressed the interval. The proximal main pancreatic duct is not significantly dilated. Mild bladder wall thickening may be due to chronic outlet obstruction. The prostate gland is enlarged. Moderate well-formed stool within the colon. No bowel wall thickening or obstruction. Normal appendix. IMPRESSION: 1. No evidence for an aortic dissection. 2. Stable aneurysmal dilatation of the abdominal aorta as described above status post aortobiiliac stent graft repair. 3. Bilateral lower lobe focal areas of consolidation. This favors a pneumonia. Follow-up chest x-ray in one to 2 months is recommended to ensure resolution. 4. Advanced emphysema. 5. A few new subcentimeter indeterminate pulmonary nodules within the lungs. Six-month chest CT follow-up recommended. 6. Mildly distended gallbladder which has progressed. There are multiple punctate gallstones. No gallbladder wall thickening. Clinical correlation recommended to assess for the possibility of a developing acute cholecystitis. 7. Focal dilatation of the distal main pancreatic duct. 8. Additional findings as described above. Electronically signed by: Alejandro Spence M.D. 03/19/2019 11:10 PM ECG Data Attestation: I personally reviewed and interpreted this ECG as follows: Indication: abdominal pain and SOB/dyspnea Rate (beats per minute): 84 Rhythm: normal sinus Findings: + RBBB and + T-wave inversion (V1 and V2); no ST depression and no ST elevation Blood Pressure Blood Pressure Findings: Elevated blood pressure Blood Pressure Disposition: further management by hospitalist JOSE JUAN Almeida Patient is an 83-year-old gentleman with a history of COPD, pulmonary hypertension, AAA repair, hypertension presenting today complaining of onset this morning of left lower costal left upper quadrant pain with some shortness of breath. Decreased oral intake today. Denies trauma. Does have some focal tenderness of the chest wall. EKG without significant findings and troponin is negative. Is on Eliquis. Lower suspicion for PE with this. Kidney function and electrolytes appear at baseline. No evidence of pneumonia on the chest x- ray. No fevers reported. Does have expiratory wheeze. Given a DuoNeb for this. Given his pain complaint CT of the chest and abdomen was completed to look for other pathology. No evidence of aortic rupture or occult pneumonia. No evidence of other acute intra-abdominal pathology. Do not believe this represents pancreatitis or hepatitis. Likely more muscular but also believe there is a component of COPD with this. Discussed with patient. Has tried Tylenol and given a small amount of morphine. Patient is improved with this. No right-sided abdominal pain or right upper quadrant pain. CT scans revealed concern for left lower lobe pneumonia possibly consistent with aspiration. There also some comment of possible gallbladder enlargement but again has no significant tenderness here. Given his concerns for possible aspiration given it is a Unasyn and azithromycin. History of some adverse reaction to steroids only given 60 mg of IV Solu-Medrol here. Discussed with the hospitalist for admission given his complex history. Impression & Plan Pneumonia, COPD exacerbation Discharge Plan Visit Data Chief Complaint: Shortness of Breath/Dyspnea Stated Complaint: SPITTING UP BLOOD,CAN'T BREATH,ABD ABD ED Provider: Roshan Addison Discharge Problem: Pneumonia, COPD exacerbation Patient Disposition: Admitted As Inpatient Forms Stand Alone Forms: [facility] Prescriptions Prescriptions: No Action furosemide 40 mg tablet 40 mg PO QAM RF: 0 ipratropium-albuterol 0.5 mg-3 mg(2.5 mg base)/3 mL Solution For Nebulization 3 ml INHALATION Q6H PRN (Reason: Shortness Of Breath Or Wheezing) RF: 0 donepezil 5 mg tablet 5 mg PO HS RF: 0 pravastatin 40 mg tablet 40 mg PO HS RF: 0 amlodipine 5 mg tablet 5 mg PO QAM RF: 0 aspirin 81 mg Tablet,Delayed Release (Dr/Ec) 81 mg PO QPM RF: 0 levothyroxine 50 mcg tablet 50 mcg PO QAM RF: 0 allopurinol 300 mg tablet 300 mg PO QAM RF: 0 lisinopril 5 mg tablet 5 mg PO HS RF: 0 furosemide 20 mg tablet 20 mg PO QAM RF: 0 apixaban 5 mg tablet 5 mg PO BID RF: 0 potassium chloride 10 mEq tablet,ER particles/crystals 10 meq PO QAM RF: 0 metoprolol tartrate 50 mg tablet 50 mg PO BID RF: 0 Combivent Respimat 20-100 mcg/actuation mist 2 puff inhalation Q6H PRN (Reason: Shortness Of Breath Or Wheezing) RF: 0 fluticasone propion-salmeterol [Advair Diskus] 500-50 mcg/dose Blister With Device 1 inh INHALATION BID RF: 0 albuterol sulfate [ProAir HFA] 90 mcg/actuation Hfa Aerosol Inhaler 2 puff INHALATION QID PRN (Reason: Shortness Of Breath Or Wheezing) RF: 0 Referrals Referrals: Ochoa Klely [Primary Care Provider] - Discharge Problem: Pneumonia Qualifiers: Pneumonia type: due to unspecified organism Laterality: left Lung location: lower lobe of lung Qualified Code(s): J18.1 - Lobar pneumonia, unspecified organism The scribe's documentation has been prepared under my direction and personally reviewed by me in its entirety. I confirm that the note above accurately reflec ts all work, treatment, procedures, and medical decision making performed by me.
[2019-03-20] MEDS ORDERED: METOPROLOL TARTRATE 50 MG TAB ONE (00:05)
[2019-03-20 00:20] LABS: HCO3 ABG 29 mmol/L (19-24); PCO2 ABG 47 mmHg (35-46); PO2 ABG 69 mm/Hg (80-95)
[2019-03-20 00:21] LABS: Allen Test POS (Pos)
--- NOTE | 2019-03-20 01:31 | History & Physical Report ---
Date of Service March 20, 2019 Assessment & Plan (1) COPD exacerbation: Secondary to recurrent aspiration pneumonia History aspiration risk, esophageal dysfunction as per records No sepsis chronic respiratory failure secondary to COPD on home O2, oxygenation seems to be at baseline Hemoptysis secondary to above hx PAF on Eliquis Patient hemoglobin better than baseline. chronic diastolic heart failure EF of 60-65%, TTE 2018), patient slightly in the dry side CAD status post stent HTN, slightly elevated secondary discomfort Moderate aortic stenosis on TTE 2018 AAA status post surgery history CVA as per records ARF on CRI, secondary to illness, kidney function a little off baseline chronic anemia secondary to CKD, hemoglobin better than baseline likely secondary to hemoconcentration past tobacco use prediabetes, Hemoglobin A1c of 6.29 September 2017, patient unaware of diagnosis however GMF Unasyn, nebs, prednisone course Follow-up swallow evaluation for additional recommendations and to reinforce patient education. Pulmonary consult RE hemoptysis Trend H&H, hold aspirin and Eliquis for now until hemoglobin stable Monitor creatinine response to IVF, hold home diuretic for now Basal insulin, ISS BG goal 140-180, update hemoglobin A1c DVT prophylaxis. SCDs while Eliquis on hold RE hemoptysis DNR Patient son requesting updates from providers. Mr. Korey Logan, contact #[phone]. History of Present Illness Chief Complaint: Shortness of breath Primary Care Provider: Ochoa Kelly History obtained from patient and records. Medical history significant for chronic respiratory failure secondary to COPD on home O2, chronic diastolic heart failure EF of 60-65%, TTE 2018), CAD status post stent, HTN, aortic stenosis, PAF on Eliquis, AAA status post surgery, history CVA as per records, history of esophageal dysfunction/aspiration risk, CRI (baseline creatinine 1.5), chronic anemia (baseline hemoglobin 11), past tobacco use, prediabetes, history of skin cancer status post surgery, hx MRSA. Recent confinement November 2018 for COPD exacerbation. Possible aspiration pneumonitis on CAT scan. Patient had swallow eval during confinement. No aspiration on previous VFSS, barium swallow studies as per notes. Esophageal dysmotility noted. Patient counseled about slippery diet but known to be noncompliant as per documentation. Aspiration precautions, slippery diet recommended. 2 weeks history of hemoptysis symptoms, blood-streaked sputum, worsening shortness of breath. No chest pain. Achy left-sided lower quadrant abdominal pain noted with coughing. Occasional coughing with meals and water intake is not careful as per patient. Tries to do chin tuck during swallowing as recommended by PCP when he he can remember. At the ER, patient received Solu-Medrol, Azithromycin, and Unasyn. 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 Allergies Allergy/AdvReac Type Severity Reaction Status Date / Time moxifloxacin AdvReac Mild dizziness Verified 03/19/19 22:13 Home Medications Home Medications Medication Instructions Recorded Confirmed Type allopurinol 300 mg PO QAM 12/05/18 03/19/19 History amlodipine 5 mg PO QAM 12/05/18 03/19/19 History apixaban 5 mg PO BID 12/05/18 03/19/19 History aspirin 81 mg PO QPM 12/05/18 03/19/19 History donepezil 5 mg PO HS 12/05/18 03/19/19 History furosemide 20 mg PO QAM 12/05/18 03/19/19 History furosemide 40 mg PO QAM 12/05/18 03/19/19 History ipratropium-albuterol 3 ml INHALATION Q6H PRN 12/05/18 03/19/19 History levothyroxine 50 mcg PO QAM 12/05/18 03/19/19 History lisinopril 5 mg PO HS 12/05/18 03/19/19 History pravastatin 40 mg PO HS 12/05/18 03/19/19 History albuterol sulfate [ProAir HFA] 2 puff INHALATION QID PRN 03/19/19 03/19/19 History fluticasone propion-salmeterol 1 inh INHALATION BID 03/19/19 03/19/19 History [Advair Diskus] ipratropium-albuterol [Combivent 2 puff INHALATION Q6H PRN 03/19/19 03/19/19 History Respimat] metoprolol tartrate 50 mg PO BID 03/19/19 03/19/19 History potassium chloride 10 meq PO QAM 03/19/19 03/19/19 History Past Med/Surg History Medical History CAD (coronary artery disease) (Chronic) "s/p stent" Chronic diastolic heart failure (Chronic) "Echo 09/2014- EF 55-60%, grade 1 diastolic dysfunction" On 03/14/15 19:57 Frances Carpenter wrote "Echo 10/26- EF 55-60%, grade 1 diastolic dysfunction" On 03/14/15 19:51 Frances Carpenter wrote "EF 55-60%" Hx MRSA infection (Chronic) "per records" Hypertension (Chronic) Dependence on continuous supplemental oxygen (Chronic) Pulmonary hypertension (Chronic) "Moderate on echo 09/2014" Hx of pulmonary aspiration (Chronic) Benign enlargement of prostate (Chronic) Mixed hyperlipidemia (Chronic) AAA (abdominal aortic aneurysm) without rupture (Chronic) Pulmonary emphysema (Chronic) History of CVA (cerebrovascular accident) without residual deficits (Resolved) Gout (Chronic) H/O seborrheic keratosis (Chronic) Squamous cell carcinoma of lip (Resolved) Chest pain Surgical History S/P knee replacement (Chronic) Hx of squamous cell carcinoma excision (Chronic) "upper lip" S/P coronary artery stent placement (Chronic) "2005 and 2007" S/P hernia repair (Chronic) S/P AAA repair (Chronic) Family History Other No significant family history Social History Preferred Language: Czech Communication Ability: Effective Beliefs That Will Affect Care: None Current Living Situation: Alone Current Living Situation Comment: lives at home alone with help of daughters and sons close Other Information That Helps Us Care for You: No Feels Safe at Home: Yes Safety Concerns: Feels Safe At This Time Smoking Status: Former smoker Do You Dip or Chew Tobacco: No Second Hand Exposure: No Tobacco Cessation Education Requested by Patient: No Hx Alcohol Use: No Hx Substance Use: No Review of Systems Review of Systems: As per HPI, all 10 systems reviewed, all other ROS negative Physical Exam Physical Exam: GENERAL: Slightly uncomfortable, speaks in phrases, minimal respiratory distress, pleasant SKIN: Pallor , warm HEENT: Pale palpebral conjunctivae, no ptosis, dry buccal mucosa, nasal cannula in place NECK : Supple, no tenderness CHEST : Decreased breath sounds , no tenderness HEART : RRR, systolic murmur ABDOMEN: Some distention, nontender EXTREMITIES : No LE swelling/tenderness, no other conspicuous deformities noted NEUROLOGIC : Coherent, no facial asymmetry, no other gross focality Results & Data Vital Signs (Past 12 Hours) Vital Signs Temp Pulse Pulse Resp BP BP Pulse Ox 03/19/19 23:42 96 H 22 143/86 H 95 03/19/19 22:15 88 16 95 03/19/19 22:00 87 18 169/87 H 95 03/19/19 21:30 83 18 143/76 H 94 03/19/19 21:11 84 20 143/96 H 98 03/19/19 20:48 93 03/19/19 20:21 36.7 C 87 20 162/80 H 87 L Laboratory Results Laboratory Results WBC 11.65 K/uL (4.8-10.8) H 03/19/19 21:08 RBC 4.24 M/uL (4.7-6.1) L 03/19/19 21:08 Hgb 12.9 g/dL (14.0-18.0) L 03/19/19 21:08 Hct 40.4 % (42-52) L 03/19/19 21:08 MCV 95.3 fL (80-100) 03/19/19 21:08 MCH 30.4 pg (25-34) 03/19/19 21:08 MCHC 31.9 g/dL (32-36) L 03/19/19 21:08 RDW Std Deviation 50.1 fL (36.4-46.3) H 03/19/19 21:08 RDW Coeff of Lety 14.3 % (11.5-14.5) 03/19/19 21:08 Plt Count 215 K/uL (130-400) 03/19/19 21:08 MPV 9.7 fL (7.4-10.4) 03/19/19 21:08 Immature Gran % (Auto) 0.3 % 03/19/19 21:08 Neut % (Auto) 82.9 % 03/19/19 21:08 Lymph % (Auto) 7.5 % 03/19/19 21:08 [place] % (Auto) 8.7 % 03/19/19 21:08 Eos % (Auto) 0.5 % 03/19/19 21:08 Baso % (Auto) 0.1 % 03/19/19 21:08 Immature Gran # (Auto) 0.04 K/uL (0.00-0.02) H 03/19/19 21:08 Neut # (Auto) 9.66 K/uL (1.4-6.5) H 03/19/19 21:08 Lymph # (Auto) 0.87 K/uL (1.2-3.4) L 03/19/19 21:08 [place] # (Auto) 1.01 K/uL (0.11-0.59) H 03/19/19 21:08 Eos # (Auto) 0.06 K/uL (0-0.5) 03/19/19 21:08 Baso # (Auto) 0.01 K/uL (0-0.2) 03/19/19 21:08 PT 10.4 Seconds (9.0-12.0) 03/19/19 21:08 INR 1.0 (0.9-1.1) 03/19/19 21:08 APTT 32.3 Seconds (21.0-31.0) H 03/19/19 21:08 PTT Ratio 1.2 03/19/19 21:08 ABG pH 7.40 (7.35-7.45) 03/20/19 00:01 ABG pCO2 47 mmHg (35-46) H 03/20/19 00:01 ABG pO2 69 mm/Hg (80-95) L 03/20/19 00:01 ABG HCO3 29 mmol/L (19-24) H 03/20/19 00:01 ABG O2 Saturation 94.0 % (90-95) 03/20/19 00:01 ABG Base Excess 3.2 mEq/L (-9-1.8) H 03/20/19 00:01 POS (Pos) 03/20/19 00:01 Barometric Pressure 735.2 mm/Hg 03/20/19 00:01 Oxygen Given 3 L 03/20/19 00:01 Sodium 141 mmol/L (136-145) 03/19/19 21:08 Potassium 4.2 mmol/L (3.5-5.1) 03/19/19 21:08 Chloride 102 mmol/L (98-107) 03/19/19 21:08 Carbon Dioxide 33 mmol/L (21-32) H 03/19/19 21:08 6.0 (3-11) 03/19/19 21:08 BUN 21 mg/dl (7-18) H 03/19/19 21:08 1.56 mg/dl (0.6-1.4) H 03/19/19 21:08 Est Cr Clr Drug Dosing 36.5 ml/min 03/19/19 21:08 Est GFR ( Amer) 47.2 03/19/19 21:08 Est GFR (Non-Af Amer) 40.8 03/19/19 21:08 13.2 (10-20) 03/19/19 21:08 Glucose 120 mg/dl (70-99) H 03/19/19 21:08 Calcium 9.3 mg/dl (8.5-10.1) 03/19/19 21:08 Magnesium 2.2 mg/dl (1.8-2.4) 03/19/19 21:08 0.9 mg/dl (0.2-1) 03/19/19 21:08 AST 16 U/L (15-37) 03/19/19 21:08 ALT 16 U/L (12-78) 03/19/19 21:08 48 U/L (45-117) 03/19/19 21:08 < 0.015 ng/ml (0-0.045) 03/19/19 21:08 7.1 gm/dl (6.4-8.2) 03/19/19 21:08 3.4 gm/dl (3.4-5.0) 03/19/19 21:08 3.7 gm/dl (2.5-4.0) 03/19/19 21:08 0.9 (0.9-2) 03/19/19 21:08 135 U/L (73-393) 03/19/19 21:[address] angio chest abdomen pelvis : 1. No evidence for an aortic dissection. 2. Stable aneurysmal dilatation of the abdominal aorta as described above status post aortobiiliac stent graft repair. 3. Bilateral lower lobe focal areas of consolidation. This favors a pneumonia. Follow-up chest x-ray in one to 2 months is recommended to ensure resolution. 4. Advanced emphysema. 5. A few new subcentimeter indeterminate pulmonary nodules within the lungs. Six-month chest CT follow-up recommended. 6. Mildly distended gallbladder which has progressed. There are multiple punctate gallstones. No gallbladder wall thickening. Clinical correlation recommended to assess for the possibility of a developing acute cholecystitis. 7. Focal dilatation of the distal main pancreatic duct. 8. Additional findings as described above. EKG as per my interpretation rate 85, NSR, RBBB, T wave flattening inferior leads
[2019-03-20] MEDS ORDERED: ACETAMINOPHEN 325 MG TAB PO PRN (01:39)
[2019-03-20] MEDS ORDERED: XOPENEX/ATROVENT 1.25mg/0.5MG NEB COMBO NEB SCH (02:47)
[2019-03-20] MEDS ORDERED: GLUCOSE 40% GEL 15 GM TUBE PO PRN (02:47)
[2019-03-20] MEDS ORDERED: INSULIN GLARGINE SOLOSTAR 100 UNITS/ML 3 ML PEN SQ STA ×2 (02:47→20:21)
[2019-03-20] MEDS ORDERED: DEXTROSE 50% 50 ML SYRINGE IV PRN (02:47)
[2019-03-20] MEDS ORDERED: GLUCOSE 10 TABS/TUBE PO PRN (02:47)
[2019-03-20] MEDS ORDERED: CARBOHYDRATES FOR HYPOGLYCEMIA PO PRN (02:47)
[2019-03-20] MEDS ORDERED: PROMETHAZINE HCL 6.25 MG in SODIUM CHLORIDE 0.9% 50 ML IV PRN (02:47)
[2019-03-20] MEDS ORDERED: SODIUM CHLORIDE 0.45 % 1,000 ML IV STA (02:47)
[2019-03-20] MEDS ORDERED: GLUCAGON FOR INJ 1 MG VIAL SQ PRN (02:47)
[2019-03-20] MEDS: IPRATROPIUM BROMIDE NEB SOLN 0.02% 2.5 ML VIAL INH SCH ×4 (03:09→19:24)
[2019-03-20] MEDS: LEVALBUTEROL 1.25MG/0.5ML NEB INH SCH ×4 (03:09→19:24)
[2019-03-20] MEDS ORDERED: AMPICILLIN/SULBACTAM CONSULT ACTIVE PRN (03:11)
[2019-03-20] MEDS: METOPROLOL TARTRATE 50 MG TAB PO SCH ×2 (04:04→20:27)
[2019-03-20] MEDS: INSULIN ASPART 100 UNITS/ML 3 ML PEN SC SCH ×5 (04:11→20:31)
[2019-03-20 06:16] LABS: Hematocrit (blood only) 36.3 % (42-52); Hemoglobin 11.5 g/dL (14.0-18.0); Immature Granulocytes # (auto) 0.03 K/uL (0.00-0.02); Immature Granulocytes % (auto) 0.3 %; Lymphocytes # (auto) 0.46 K/uL (1.2-3.4); Mean Corpuscular Hgb Conc 31.7 g/dL (32-36); Mean Corpuscular Volume 95.8 fL (80-100); Mean Platelet Volume 9.6 fL (7.4-10.4); Monocytes # (auto) 0.15 K/uL (0.11-0.59); Monocytes % (auto) 1.6 %; Neutrophils # (auto) 8.57 K/uL (1.4-6.5); Neutrophils % (auto) 93.1 %; Platelet Count 201 K/uL (130-400); RDW Coefficient of Variation 14.4 % (11.5-14.5); RDW Standard Deviation 50.5 fL (36.4-46.3); Red Blood Count 3.79 M/uL (4.7-6.1); White Blood Count 9.21 K/uL (4.8-10.8)
[2019-03-20] MEDS: AMPICILLIN/SULBACTAM SOD 3,000 MG in 0.9 % SODIUM CHLORIDE 100 ML IV SCH ×4 (06:28→23:34)
[2019-03-20] MEDS: LEVOTHYROXINE SODIUM 50 MCG TABLET PO SCH (06:28)
[2019-03-20 08:40] LABS: Estimated Average Glucose 131 mg/dl; Hemoglobin A1C 6.2 % (4.5-5.6)
[2019-03-20] MEDS: FLUTICASONE/SALMETEROL (ADVAIR) 500/50 INH 14 PUFF INH SCH ×2 (08:54→20:27)
[2019-03-20] MEDS: AMLODIPINE BESYLATE 5 MG TAB PO SCH (08:54)
[2019-03-20] MEDS: ALLOPURINOL 300 MG TAB PO SCH (08:55)
[2019-03-20] MEDS: predniSONE 20 MG TAB PO SCH (08:55)
--- NOTE | 2019-03-20 12:14 | Hospitalist Progress Note ---
Date of Service March 20, 2019 Assessment & Plan (1) COPD exacerbation: Secondary to recurrent aspiration pneumonia History aspiration risk, esophageal dysfunction as per records -On oxygen (chronically on home oxygen -2.5 L at baseline) -Nebs QID -Prednisone 40 mg daily -IV Unasyn- Day 1 -Pulmonary consulted ASPIRATION PNEUMONIA Afebrile, No leucocytosis. No signs of sepsis -Hx of aspiration and esophageal dysfunction in past -IV Unasyn-Day 1 BLOOD IN SPUTUM -Secondary to above in setting of Eliquis/Aspirin -Eliquis and ASA were held. -Will restart ASA given no more episodes of blood in sputum and has CAD. Will continue to hold Eliquis, but need to consider restarting it soon as has CVA/A fib. -Monitor closely and H & H -Pulmonary on board CHRONIC RESPIRATORY FAILURE Secondary to COPD Home oxygen- 2.5 L At baseline CKD III Baseline 1.5. Near baseline Holding lisinopril as slightly elevated HX OF PAF -On Eliquis which is on hold currently due to blood in sputum -Consider restarting it soon with hx of CVA CHRONIC DIASTOLIC HEART FAILURE Echo 2018- EF 60-65%, patient is slightly on the dry side -Holding home diuretics -Gentle IVF due to elevated creatinine HX OF CAD S/P stent -Okay to restart Aspirin, Continue with Lopressor BID. HTN Slightly elevated -Continue with Lopressor 50 mg PO BID, Amlodipine 5 mg daily -Hold lisinopril due to elevated creatinine MODERATE As per TTE 2018 HX OF AAA repair post surgery HX OF CVA per records Restart ASA. Consider restarting Eliquis sooner if no blood in sputum DIABETES MELLITUS TYPE 2 Basal insulin-Lantus 5 units, ISS BG goal 140-180, update hemoglobin A1c-6.2 DVT prophylaxis. SCDs while Eliquis on hold RE hemoptysis DNR/DNI DISPOSITION Medical mx in progress Patient son requesting updates from providers. Mr. Korey Logan, contact #[phone]. Subjective Patient is feeling better. SOB, cough has improved. Pain in left lower chest has almost resolved No fever, chills On 2.5 L oxygen as at home Physical Exam Physical Exam: GENERAL- AAOX3, No acute distress. Chronically ill looking LUNGS- Air entry bilaterally decreased, coarse breath sounds, no wheezing HEART- Regular rate and rhythm. No murmurs ABDOMEN- Soft, non tender, non distended, Bowel sounds heard. EXTREMITIES- Good peripheral pulses, no edema Results & Data Vital Signs (Past 12 Hours) Vital Signs Temp Pulse Resp BP Pulse Ox 03/20/19 07:54 36.7 C 81 20 160/77 H 92 03/20/19 07:21 82 18 93 03/20/19 03:11 62 18 93 03/20/19 02:47 36.5 C 78 22 156/86 H 92 03/20/19 01:36 85 22 155/85 H 95
[2019-03-20 12:36] LABS: Hematocrit (blood only) 37.3 % (42-52); Hemoglobin 12.6 g/dL (14.0-18.0)
--- NOTE | 2019-03-20 18:44 | Consultation Report ---
DATE OF CONSULTATION: 03/20/2019 PULMONARY MEDICINE CONSULTATION REASON FOR CONSULTATION: Bronchopneumonia/hemoptysis. HISTORY OF PRESENT ILLNESS: An 83-year-old white male, well known to me, followed at our [facility] by ROSELINE Turk and myself and last seen by myself in November when hospitalized here in 2018, was admitted early a.m. by Dr. Yip. The patient has a history of severe COPD and chronic diastolic heart failure as well as hypertensive cardiovascular disease. He has moderate aortic stenosis by transthoracic echocardiogram and a history of previous CVA as well as status post AAA surgical intervention. He has also had a history of acute renal failure on chronic renal insufficiency and chronic anemia. There is a history of esophageal dysfunction and probable aspiration pneumonia as well. The patient states he has become progressively more dyspneic over the past several days, culminating in hemoptysis yesterday. He has a longstanding past smoking history and is on Eliquis. After coughing up a dime or quarter-sized amount of bright red blood, this alarmed him and he was seen in our Emergency Room, but eventually admitted onto the hospitalist service. His appetite has been poor. He has been very dyspneic over the past several days and he has been running an intermittent fever. He has also had a history of epistaxis on Eliquis. I saw him during his mid November admission. The patient has a history of ischemic cardiac disease status post stenting, pulmonary hypertension, severe COPD, on 2.5 liters of oxygen at home. Last admission, he did not exhibit hemoptysis. He has also had a history of MRSA infection in the past, hypertensive cardiovascular disease, moderate pulmonary hypertension first discovered in 2013 as well as chronic aspiration. He is status post knee replacement, squamous cell carcinoma excision of the upper lip, coronary artery stent placed in 2005 and 2007, and AAA repair. He has been on continuous oxygen, had been on Advair Diskus inhaler and use of Combivent at home along with a nebulizer with DuoNeb solution every 4 hours as needed. He did have airspace opacities in both lower lung martinez in the past. He was placed on IV Unasyn and doxycycline on last admission with stabilization of his renal status and he clinically improved. ALLERGIES: HE DOES HAVE AN ALLERGY TO MOXIFLOXACIN. DETAILS OF PAST MEDICAL HISTORY, MEDICATIONS, FAMILY AND SOCIAL HISTORY: I refer you to current and past record. PHYSICAL EXAMINATION: GENERAL: Reveals a well-developed elderly white male, appearing quite stable at rest. No obvious respiratory distress. VITAL SIGNS: Blood pressure 160/77, pulse 81 and regular, respiratory rate 20, temperature 36.7, O2 sat 92% on 2 liters. SKIN: Without lesion. HEENT: Atraumatic, normocephalic. PERRLA. LUNGS: Coarse rhonchi diffusely, right greater than left with egophony right base. CARDIAC: Regular rate and rhythm. I do not appreciate a gallop. ABDOMEN: Soft, protuberant. No evidence of hepatosplenomegaly. EXTREMITIES: No pedal edema, clubbing or cyanosis. NEUROLOGIC: Intact. No lateralizing signs. IMAGING: CTA was reviewed from yesterday, which showed no evidence of aortic dissection, but stable aneurysmal dilatation of the abdominal aorta, status post aorto-biiliac stent graft repair. He has bilateral lower lobe focal areas of consolidation, right greater than left. There is also focal dilatation of the distal main pancreatic duct. LABORATORY DATA: Blood cultures pending. White count yesterday 11,600, H and H 12.9 and 40.4 with a leftward shift. ABGs -- pH 7.40, pCO2 of 47, pO2 of 69. BUN 21, creatinine 1.5. OVERALL ASSESSMENT AND PLAN: An 83-year-old with severe chronic obstructive pulmonary disease, oxygen dependent, admitted with hemoptysis, low-grade fever, leukocytosis and bilateral lower lobe consolidations, right greater than left. I suspect patient may be chronically aspirating and that has been our concern in the past. Nevertheless, I think an underlying bronchogenic neoplasm contributing to a cause of the hemoptysis would be unlikely, but not ruled out. The patient currently is on prednisone therapy, aerosolized bronchodilator and started on appropriate antibiotic pending the results of cultures. We will watch for clinical signs of improvement and hold on bronchoscopic intervention unless the patient is not clinically responding. We will follow along with you. Thank you very much for this consultation. ANGEL
[2019-03-20] MEDS: DONEPEZIL HCL 5 MG TAB PO SCH (20:29)
[2019-03-20] MEDS: PRAVASTATIN SOD 40 MG TAB PO SCH (20:29)
[2019-03-20 20:48] LABS: Hematocrit (blood only) 36.9 % (42-52); Hemoglobin 12.2 g/dL (14.0-18.0)
[2019-03-21] MEDS: IPRATROPIUM BROMIDE NEB SOLN 0.02% 2.5 ML VIAL INH SCH ×4 (01:24→18:55)
[2019-03-21] MEDS: LEVALBUTEROL 1.25MG/0.5ML NEB INH SCH ×4 (01:24→18:55)
[2019-03-21] MEDS: AMPICILLIN/SULBACTAM SOD 3,000 MG in 0.9 % SODIUM CHLORIDE 100 ML IV SCH ×4 (05:20→23:51)
[2019-03-21] MEDS: LEVOTHYROXINE SODIUM 50 MCG TABLET PO SCH (05:21)
[2019-03-21 07:52] LABS: Mean Corpuscular Hgb Conc 34.3 g/dL (32-36); Mean Corpuscular Volume 92.1 fL (80-100); Mean Platelet Volume 9.4 fL (7.4-10.4); Platelet Count 221 K/uL (130-400); RDW Coefficient of Variation 14.2 % (11.5-14.5); RDW Standard Deviation 48.2 fL (36.4-46.3); White Blood Count 12.44 K/uL (4.8-10.8)
[2019-03-21 08:25] LABS: BUN Creatinine Ratio 21.2 (10-20); Creatinine Clr Calc Pharmacy 39.9 ml/min; Est GFR (African American) 54.8; Est GFR (Non-African American) 47.3; Potassium 3.8 mmol/L (3.5-5.1)
[2019-03-21] MEDS: FLUTICASONE/SALMETEROL (ADVAIR) 500/50 INH 14 PUFF INH SCH ×2 (08:58→20:46)
[2019-03-21] MEDS: METOPROLOL TARTRATE 50 MG TAB PO SCH ×2 (09:00→20:52)
[2019-03-21] MEDS: AMLODIPINE BESYLATE 5 MG TAB PO SCH (09:00)
[2019-03-21] MEDS: predniSONE 20 MG TAB PO SCH (09:00)
[2019-03-21] MEDS ORDERED: INSULIN GLARGINE SOLOSTAR 100 UNITS/ML 3 ML PEN SC SCH (09:00)
[2019-03-21] MEDS: ALLOPURINOL 300 MG TAB PO SCH (09:01)
[2019-03-21] MEDS: INSULIN GLARGINE SOLOSTAR 100 UNITS/ML 3 ML PEN SC SCH (09:03)
[2019-03-21] MEDS: INSULIN ASPART 100 UNITS/ML 3 ML PEN SC SCH ×4 (09:05→20:57)
--- NOTE | 2019-03-21 09:54 | Progress Note ---
DATE: 03/21/2019 Chart reviewed, patient examined. SUBJECTIVE: The patient had several more bouts of blood streaking in his sputum yesterday according to what he told me this morning. In addition, he became disoriented and was hallucinating, presumably secondary to steroid therapy and a degree of owning. He recognized these hallucinations, but appears oriented this morning. No sign of respiratory distress. OBJECTIVE: VITAL SIGNS: Blood pressure 137/81, pulse 73 and regular, respiratory rate 16, temperature 36.6, O2 sat 94% on 2 liters. SKIN: Without lesion. HEENT: Atraumatic, normocephalic. PERRLA. LUNGS: Distant P and A and hyperresonant. CARDIAC: Regular rate and rhythm. No murmurs or gallops. ABDOMEN: Soft, scaphoid. EXTREMITIES: No pedal edema, clubbing or cyanosis. NEUROLOGIC: Intact. No lateralizing signs. LABORATORY DATA: White count 12,400, some from demargination while on steroid therapy. H and H stable at 12 and 35. BUN 29, creatinine 1.38. Mycoplasma IgG 2.23. IgM within normal limits. Sputum culture none. DIAGNOSTIC DATA: CT scan of abdomen and chest reviewed, certainly bilateral lower lobe areas of consolidation are noted and suspect a degree of aspiration. The patient is having some dysphagia, may very well require upper endoscopy. Given the persistence of hemoptysis, although mild in the presence of persistent bilateral lower lobe consolidation, I believe bronchoscopy would be indicated to be on the safe side. I will schedule him for Friday and will sign out his case to Dr. Leija and hold any anticoagulant therapy at this stage of the game.
--- NOTE | 2019-03-21 13:11 | Hospitalist Progress Note ---
Date of Service March 21, 2019 Assessment & Plan (1) COPD exacerbation: Secondary to recurrent aspiration pneumonia History aspiration risk, esophageal dysfunction as per records -On oxygen (chronically on home oxygen -2.5 L at baseline) -Nebs QID -Prednisone 40 mg (Day 2) -IV Unasyn- Day 2 -Pulmonary consulted ASPIRATION PNEUMONIA Afebrile, No leucocytosis. No signs of sepsis -Hx of aspiration and esophageal dysfunction in past -IV Unasyn-Day 1 -Speech evaluation completed- Slippery soft bite sized diet recommended. -Sputum cx - pending BLOOD IN SPUTUM -Secondary to above in setting of Eliquis/Aspirin. Had a small episode of blood in sputum. -Eliquis and ASA were held initially -Restarted ASA given no more episodes of blood in sputum and has CAD. Will continue to hold Eliquis, but need to consider restarting it soon as has CVA/A fib. -Monitor closely and H & H -Pulmonary on board - Given blood in sputum though likely sec to COPD/Pneumonia, may consider Bronchoscopy on Friday CHRONIC RESPIRATORY FAILURE Secondary to COPD Home oxygen- 2.5 L At baseline CKD III Baseline 1.5. Near baseline Holding lisinopril as creatinine slightly elevated, now near baseline HX OF PAF -On Eliquis which is on hold currently due to blood in sputum -Consider restarting it soon with hx of CVA CHRONIC DIASTOLIC HEART FAILURE Echo 2018- EF 60-65%, patient is slightly on the dry side -Holding home diuretics -Gentle IVF, discontinue today HX OF CAD S/P stent -Okay to restart Aspirin, Continue with Lopressor BID. HTN -Continue with Lopressor 50 mg PO BID, Amlodipine 5 mg daily -Ok to restart lisinopril as creatinine has stablized MODERATE As per TTE 2018 HX OF AAA repair post surgery HX OF CVA per records Restarted ASA and on statin. DIABETES MELLITUS TYPE 2 Basal insulin-Lantus 5 units, ISS BG goal 140-180, update hemoglobin A1c-6.2 DVT prophylaxis. SCDs while Eliquis on hold RE hemoptysis DNR/DNI DISPOSITION Medical mx in progress Patient son requesting updates from providers. Updated son over phone today Mr. Korey Logan, contact #[phone]. Subjective Patient was a bit confused today morning during pulmonary evaluation. At the time of my evaluation, AAOX2. SOB, cough has improved. No fever, chills On 2.5 L oxygen as at home Physical Exam Physical Exam: GENERAL- AAOX3, No acute distress. Chronically ill looking LUNGS- Air entry bilaterally decreased, coarse breath sounds, no wheezing HEART- Regular rate and rhythm. No murmurs ABDOMEN- Soft, non tender, non distended, Bowel sounds heard. EXTREMITIES- Good peripheral pulses, no edema Results & Data Vital Signs (Past 12 Hours) Vital Signs Temp Pulse Resp BP Pulse Ox 03/21/19 07:39 73 16 94 03/21/19 07:36 36.6 C 77 20 137/81 93 03/21/19 01:24 87 16 94
[2019-03-21] MEDS: ASPIRIN 81 MG ECTAB PO SCH (13:44)
[2019-03-21] MEDS: DONEPEZIL HCL 5 MG TAB PO SCH (20:46)
[2019-03-21] MEDS: PRAVASTATIN SOD 40 MG TAB PO SCH (20:52)
[2019-03-21] MEDS: LISINOPRIL 5 MG TAB PO SCH (20:53)
[2019-03-22] MEDS: IPRATROPIUM BROMIDE NEB SOLN 0.02% 2.5 ML VIAL INH SCH ×4 (02:00→19:36)
[2019-03-22] MEDS: LEVALBUTEROL 1.25MG/0.5ML NEB INH SCH ×4 (02:00→19:36)
[2019-03-22] MEDS: LEVOTHYROXINE SODIUM 50 MCG TABLET PO SCH (05:25)
[2019-03-22] MEDS: AMPICILLIN/SULBACTAM SOD 3,000 MG in 0.9 % SODIUM CHLORIDE 100 ML IV SCH ×4 (05:26→23:34)
[2019-03-22 06:05] LABS: Hematocrit (blood only) 33.7 % (42-52); Hemoglobin 10.9 g/dL (14.0-18.0); Mean Corpuscular Hgb Conc 32.3 g/dL (32-36); Mean Corpuscular Volume 94.4 fL (80-100); Mean Platelet Volume 9.2 fL (7.4-10.4); Platelet Count 210 K/uL (130-400); RDW Coefficient of Variation 14.3 % (11.5-14.5); RDW Standard Deviation 49.5 fL (36.4-46.3); Red Blood Count 3.57 M/uL (4.7-6.1); White Blood Count 8.57 K/uL (4.8-10.8)
[2019-03-22 06:36] LABS: BUN Creatinine Ratio 21.6 (10-20); Calcium 8.2 mg/dl (8.5-10.1); Creatinine Clr Calc Pharmacy 39.4 ml/min; Est GFR (African American) 53.8; Est GFR (Non-African American) 46.5; Potassium 3.6 mmol/L (3.5-5.1)
[2019-03-22] MEDS ORDERED: SODIUM CHLORIDE 0.9% 1000ML 1,000 ML IV SCH (07:00)
[2019-03-22] MEDS: ASPIRIN 81 MG ECTAB PO SCH (09:15)
[2019-03-22] MEDS: FLUTICASONE/SALMETEROL (ADVAIR) 500/50 INH 14 PUFF INH SCH ×2 (09:15→20:33)
[2019-03-22] MEDS: INSULIN ASPART 100 UNITS/ML 3 ML PEN SC SCH ×4 (09:16→20:48)
[2019-03-22] MEDS: METOPROLOL TARTRATE 50 MG TAB PO SCH ×2 (09:16→20:39)
[2019-03-22] MEDS: AMLODIPINE BESYLATE 5 MG TAB PO SCH (09:16)
[2019-03-22] MEDS: ALLOPURINOL 300 MG TAB PO SCH (09:16)
[2019-03-22] MEDS: INSULIN GLARGINE SOLOSTAR 100 UNITS/ML 3 ML PEN SC SCH (09:17)
[2019-03-22] MEDS: predniSONE 20 MG TAB PO SCH (09:22)
--- NOTE | 2019-03-22 15:25 | Hospitalist Progress Note ---
Date of Service March 22, 2019 Assessment & Plan (1) COPD exacerbation: Secondary to recurrent aspiration pneumonia History aspiration risk, esophageal dysfunction as per records -On oxygen (chronically on home oxygen -2.5 L at baseline) -Nebs QID -Prednisone 40 mg (Day 3) -IV Unasyn- Day 3 -Pulmonary consulted ASPIRATION PNEUMONIA Afebrile, No leucocytosis. No signs of sepsis -Hx of aspiration and esophageal dysfunction in past -IV Unasyn-Day 3 -Speech evaluation completed- Slippery soft bite sized diet recommended. -Sputum cx -preliminarylight normal marv BLOOD IN SPUTUM -Secondary to above in setting of Eliquis/Aspirin. Had a small episode of blood in sputum. -Eliquis and ASA were held initially -Restarted ASA given no more episodes of blood in sputum and has CAD. Will continue to hold Eliquis, but need to consider restarting it soon as has CVA/A fib. -Monitor closely and H & H -Pulmonary on board - Given blood in sputum though likely sec to COPD/Pneumonia, may consider Bronchoscopy on Friday CHRONIC HYPOXIC RESPIRATORY FAILURE Secondary to COPD Home oxygen- 2.5 L At baseline CKD III Baseline 1.5. Near baseline Holding lisinopril as creatinine slightly elevated, now near baseline HX OF PAF -On Eliquis which is on hold currently due to blood in sputum -Consider restarting it soon with hx of CVA CHRONIC DIASTOLIC HEART FAILURE Echo 2018- EF 60-65%, patient is slightly on the dry side -Holding home diuretics -Gentle IVF, discontinue today HX OF CAD S/P stent -Okay to restart Aspirin, Continue with Lopressor BID. HTN -Continue with Lopressor 50 mg PO BID, Amlodipine 5 mg daily -Ok to restart lisinopril as creatinine has stablized MODERATE As per TTE 2018 HX OF AAA repair post surgery HX OF CVA per records Restarted ASA and on statin. DIABETES MELLITUS TYPE 2 Basal insulin-Lantus 5 units, ISS BG goal 140-180, update hemoglobin A1c-6.2 DVT prophylaxis. SCDs while Eliquis on hold RE hemoptysis DNR/DNI DISPOSITION Medical mx in progress Patient son requesting updates from providers. Updated son over phone yesterday Mr. Korey Logan, contact #[phone]. Subjective Patient had multiple bouts of cough with sputum production without blood. However last time he did see a little blood in his sputum. Denies worsening of shortness of breath, improved since admission. No fever, chills On 2.5 L oxygen as at home Physical Exam Physical Exam: GENERAL- AAOX3, No acute distress. Chronically ill looking LUNGS- Air entry bilaterally decreased, coarse breath sounds, no wheezing HEART- Regular rate and rhythm. No murmurs ABDOMEN- Soft, non tender, non distended, Bowel sounds heard. EXTREMITIES- Good peripheral pulses, no edema Results & Data Vital Signs (Past 12 Hours) Vital Signs Temp Pulse Resp BP BP Pulse Ox 03/22/19 14:22 65 16 93 03/22/19 09:12 87 137/79 03/22/19 08:07 36.6 C 77 20 165/78 H 90 03/22/19 07:45 80 16 93
[2019-03-22] MEDS: DONEPEZIL HCL 5 MG TAB PO SCH (20:35)
[2019-03-22] MEDS: PRAVASTATIN SOD 40 MG TAB PO SCH (20:36)
[2019-03-22] MEDS: LISINOPRIL 5 MG TAB PO SCH (20:36)
[2019-03-22] MEDS: BENZONATATE 100 MG CAPSULE PO PRN (20:40)
[2019-03-23] MEDS ORDERED: Nursing to Pharmacy Communication ONE ×2 (01:35→15:12)
[2019-03-23] MEDS: IPRATROPIUM BROMIDE NEB SOLN 0.02% 2.5 ML VIAL INH SCH ×4 (01:39→19:11)
[2019-03-23] MEDS: LEVALBUTEROL 1.25MG/0.5ML NEB INH SCH ×4 (01:39→19:11)
[2019-03-23] MEDS: AMPICILLIN/SULBACTAM SOD 3,000 MG in 0.9 % SODIUM CHLORIDE 100 ML IV SCH ×2 (06:01→12:13)
[2019-03-23] MEDS: LEVOTHYROXINE SODIUM 50 MCG TABLET PO SCH (06:02)
[2019-03-23] MEDS: INSULIN ASPART 100 UNITS/ML 3 ML PEN SC SCH ×4 (06:27→20:40)
[2019-03-23] MEDS: INSULIN GLARGINE SOLOSTAR 100 UNITS/ML 3 ML PEN SC SCH (08:02)
[2019-03-23] MEDS: FLUTICASONE/SALMETEROL (ADVAIR) 500/50 INH 14 PUFF INH SCH ×2 (08:02→20:30)
[2019-03-23] MEDS: ASPIRIN 81 MG ECTAB PO SCH (08:02)
[2019-03-23] MEDS: METOPROLOL TARTRATE 50 MG TAB PO SCH ×2 (08:03→20:31)
[2019-03-23] MEDS: ALLOPURINOL 300 MG TAB PO SCH (08:03)
[2019-03-23] MEDS: predniSONE 20 MG TAB PO SCH (08:03)
[2019-03-23] MEDS: AMLODIPINE BESYLATE 5 MG TAB PO SCH (08:03)
--- NOTE | 2019-03-23 13:47 | Hospitalist Progress Note ---
Date of Service March 23, 2019 Assessment & Plan (1) COPD exacerbation: Secondary to recurrent aspiration pneumonia History aspiration risk, esophageal dysfunction as per records -On oxygen (chronically on home oxygen -2.5 L at baseline) -Nebs QID -Prednisone 40 mg (Day 3)--> Change to Prednisone 30 mg today -IV Unasyn- Day 3--> Change to Augmentin BID today -Pulmonary consulted--> Considering Bronchoscopy today (Currently NPO) ASPIRATION PNEUMONIA Afebrile, No leucocytosis. No signs of sepsis -Hx of aspiration and esophageal dysfunction in past -IV Unasyn-Day 3--> Change to PO Augmentin BID -Speech evaluation completed- Slippery soft bite sized diet recommended. -Sputum cx -preliminarylight normal marv BLOOD IN SPUTUM -Secondary to above in setting of Eliquis/Aspirin. Had few small episodes of blood in sputm -Eliquis and ASA were held initially -Restarted ASA given no more episodes of blood in sputum and has CAD. Will continue to hold Eliquis, but need to consider restarting it soon as has CVA/A fib -Monitor closely and H & H -Pulmonary on board - Given blood in sputum though likely sec to COPD/Pneumonia, may consider Bronchoscopy today. Awaiting their inputs. Patient is NPO CHRONIC HYPOXIC RESPIRATORY FAILURE Secondary to COPD Home oxygen- 2.5 L At baseline CKD III Baseline 1.5. Near baseline Restart lisinopril as creatinine stabilized HX OF PAF -On Eliquis which is on hold currently due to blood in sputum -Consider restarting it soon with hx of CVA CHRONIC DIASTOLIC HEART FAILURE Echo 2018- EF 60-65%, patient is slightly on the dry side -Holding home diuretics -S/P IVF gentle HX OF CAD S/P stent -Okay to restart Aspirin, Continue with Lopressor BID. HTN -Continue with Lopressor 50 mg PO BID, Amlodipine 5 mg daily -Ok to restart lisinopril as creatinine has stabilized MODERATE As per TTE 2018 HX OF AAA repair post surgery HX OF CVA per records Restarted ASA and on statin. Not sure if it was an embolic stroke DIABETES MELLITUS TYPE 2 Basal insulin-Lantus 5 units, ISS BG goal 140-180, update hemoglobin A1c-6.2 DVT prophylaxis. SCDs while Eliquis on hold RE hemoptysis DNR/DNI DISPOSITION Medical mx in progress- For possible bronch today. PT/OT ordered today Patient son requesting updates from providers. Updated son over phone today. Mr. Korey Logan, contact #[phone]. Subjective Patient still has cough but no more blood in sputum. Overall feels a little better. Denies worsening of shortness of breath, improved since admission. No fever, chills On 2.5 L oxygen as at home Physical Exam Physical Exam: GENERAL- AAOX3, No acute distress. Chronically ill looking LUNGS- Air entry bilaterally decreased, coarse breath sounds, no wheezing HEART- Regular rate and rhythm. No murmurs ABDOMEN- Soft, non tender, non distended, Bowel sounds heard. EXTREMITIES- Good peripheral pulses, no edema Results & Data Vital Signs (Past 12 Hours) Vital Signs Temp Pulse Pulse Resp BP Pulse Ox 03/23/19 07:31 84 16 91 03/23/19 07:18 36.7 C 92 H 18 152/86 H 88 L
[2019-03-23] MEDS: AMOXICILLIN/CLAVULANATE 875 MG TAB PO SCH (16:49)
--- NOTE | 2019-03-23 17:54 | Pulmonology Progress Note ---
Date of Service March 23, 2019 Assessment & Plan (1) Respiratory failure with hypoxia: O2 supplementation Chronicity: unspecified Qualified Code(s): J96.91 - Respiratory failure, unspecified with hypoxia Present on Admission?: Yes (2) COPD exacerbation: Continue inhalers Prednisone taper Present on Admission?: Yes (3) Pneumonia: continue antibiotics and since the hemoptysis has lessned we would defer bronch at this time Patient to FU with Dr Hart office as outpatient Laterality: left Lung location: lower lobe of lung Pneumonia type: due to unspecified organism Qualified Code(s): J18.1 - Lobar pneumonia, unspecified organism Present on Admission?: Yes Subjective Seen at the bedside and reports that of 6 sputa produced todday one was blood tinged and this is a significant improvement over the intial admission period when he was having his entire mucous mixed with blood. He does have b/l LL pneumonia and was on blood thinners and now aspirin is resumed. Physical Exam Constitutional: WD/WN, vitals as above Eyes: PERRL, conjunctivae normal, anicteric sclerae Neck: trachea midline, no thyromegaly Respiratory: diminished air entry at the basis Gastrointestinal (Abdomen): normal bowel sounds, soft, nontender, no hepatosplenomegaly Skin: no rashes, warm and dry Results & Data Vital Signs (Past 12 Hours) Vital Signs Temp Pulse Pulse Resp BP BP Pulse Ox 03/23/19 14:53 37.6 C H 75 20 175/87 H 157/90 H 93 03/23/19 14:50 93 03/23/19 14:05 74 18 93 03/23/19 07:31 84 16 91 03/23/19 07:18 36.7 C 92 H 18 152/86 H 88 L
[2019-03-23] MEDS: DONEPEZIL HCL 5 MG TAB PO SCH (20:30)
[2019-03-23] MEDS: LISINOPRIL 5 MG TAB PO SCH (20:31)
[2019-03-23] MEDS: PRAVASTATIN SOD 40 MG TAB PO SCH (20:31)
[2019-03-24] MEDS: IPRATROPIUM BROMIDE NEB SOLN 0.02% 2.5 ML VIAL INH SCH ×4 (01:46→19:18)
[2019-03-24] MEDS: LEVALBUTEROL 1.25MG/0.5ML NEB INH SCH ×4 (01:46→19:18)
[2019-03-24] MEDS: LEVOTHYROXINE SODIUM 50 MCG TABLET PO SCH (06:09)
[2019-03-24] MEDS: INSULIN ASPART 100 UNITS/ML 3 ML PEN SC SCH ×4 (08:59→20:41)
[2019-03-24] MEDS: METOPROLOL TARTRATE 50 MG TAB PO SCH ×2 (09:00→20:50)
[2019-03-24] MEDS: predniSONE 10 MG TABLET PO SCH (09:00)
[2019-03-24] MEDS: ASPIRIN 81 MG ECTAB PO SCH (09:00)
[2019-03-24] MEDS: ALLOPURINOL 300 MG TAB PO SCH (09:00)
[2019-03-24] MEDS: FLUTICASONE/SALMETEROL (ADVAIR) 500/50 INH 14 PUFF INH SCH ×2 (09:00→20:49)
[2019-03-24] MEDS: AMOXICILLIN/CLAVULANATE 875 MG TAB PO SCH ×2 (09:00→17:47)
[2019-03-24] MEDS: AMLODIPINE BESYLATE 5 MG TAB PO SCH (09:00)
[2019-03-24] MEDS: INSULIN GLARGINE SOLOSTAR 100 UNITS/ML 3 ML PEN SC SCH (09:01)
--- NOTE | 2019-03-24 17:34 | Hospitalist Progress Note ---
Date of Service March 24, 2019 Assessment & Plan (1) COPD exacerbation: Respiratory status improved to baseline Secondary to recurrent aspiration pneumonia History aspiration risk, esophageal dysfunction as per records -On oxygen (chronically on home oxygen -2.5 L at baseline) New prednisone taper, - ASPIRATION PNEUMONIA Afebrile, No leucocytosis. No signs of sepsis -Hx of aspiration and esophageal dysfunction in past -On p.o. Augmentin -Speech evaluation completed- Slippery soft bite sized diet recommended. -Sputum cx -preliminarylight normal marv BLOOD IN SPUTUM -Secondary to above in setting of Eliquis/Aspirin. Had few small episodes of blood in sputm No further episode in the last 24 hours, Eliquis and aspirin resumed CHRONIC HYPOXIC RESPIRATORY FAILURE Secondary to COPD Home oxygen- 2.5 L At baseline CKD III Baseline 1.5. Near baseline HX OF PAF -On Eliquis CHRONIC DIASTOLIC HEART FAILURE Echo 2018- EF 60-65%, -Limb status stable at present HX OF CAD S/P stent -Continue aspirin aspirin, Lopressor BID. HTN -Continue with Lopressor 50 mg PO BID, Amlodipine 5 mg daily/lisinopril MODERATE As per TTE 2018 HX OF AAA repair post surgery HX OF CVA per records On aspirin and statin Not sure if it was an embolic stroke DIABETES MELLITUS TYPE 2 Basal insulin-Lantus 5 units, ISS BG goal 140-180, update hemoglobin A1c-6.2 DVT prophylaxis. Eliquis DNR/DNI DISPOSITION Possible discharge home tomorrow, doing well Family will provide transport Mr. Korey Logan, contact #[phone]. Subjective no complain of SOB , no cough on 2 L 02 via NC ( baseline ) walked on the hallway earlier , without any SOB or discomfort feels fine Physical Exam Constitutional: WD/WN, vitals as above Eyes: PERRL, conjunctivae normal, anicteric sclerae Neck: trachea midline, no thyromegaly Respiratory: normal respiratory effort; no respiratory distress Auscultation: + diminished lung sounds; no crackles, no rales and no wheezes Cardiovascular: RRR, no murmur, no edema Gastrointestinal (Abdomen): normal bowel sounds, soft, nontender, no hepatosplenomegaly Skin: no rashes, warm and dry Results & Data Vital Signs (Past 12 Hours) Vital Signs Temp Pulse Resp BP BP Pulse Ox 03/24/19 15:06 82 L 03/24/19 13:58 79 18 92 03/24/19 07:38 36.5 C 71 20 161/91 H 170/90 H 94 03/24/19 07:07 70 16 94
[2019-03-24] MEDS: PRAVASTATIN SOD 40 MG TAB PO SCH (20:50)
[2019-03-24] MEDS: DONEPEZIL HCL 5 MG TAB PO SCH (20:50)
[2019-03-24] MEDS: LISINOPRIL 5 MG TAB PO SCH (20:51)
[2019-03-25] MEDS: LEVALBUTEROL 1.25MG/0.5ML NEB INH SCH ×3 (01:01→13:21)
[2019-03-25] MEDS: IPRATROPIUM BROMIDE NEB SOLN 0.02% 2.5 ML VIAL INH SCH ×3 (01:02→13:21)
[2019-03-25] MEDS: LEVOTHYROXINE SODIUM 50 MCG TABLET PO SCH (05:43)
[2019-03-25] MEDS: ASPIRIN 81 MG ECTAB PO SCH (09:17)
[2019-03-25] MEDS: BENZONATATE 100 MG CAPSULE PO PRN (09:18)
[2019-03-25] MEDS: FLUTICASONE/SALMETEROL (ADVAIR) 500/50 INH 14 PUFF INH SCH (09:20)
[2019-03-25] MEDS: predniSONE 10 MG TABLET PO SCH (09:20)
[2019-03-25] MEDS: ALLOPURINOL 300 MG TAB PO SCH (09:20)
[2019-03-25] MEDS: METOPROLOL TARTRATE 50 MG TAB PO SCH (09:21)
[2019-03-25] MEDS: AMLODIPINE BESYLATE 5 MG TAB PO SCH (09:21)
[2019-03-25] MEDS: AMOXICILLIN/CLAVULANATE 875 MG TAB PO SCH (09:21)
[2019-03-25] MEDS: INSULIN ASPART 100 UNITS/ML 3 ML PEN SC SCH ×2 (09:22→12:44)
[2019-03-25] MEDS: INSULIN GLARGINE SOLOSTAR 100 UNITS/ML 3 ML PEN SC SCH (09:23)
--- NOTE | 2019-03-25 17:22 | Hospitalist Progress Note ---
Date of Service March 25, 2019 Assessment & Plan (1) COPD exacerbation: Resolved Respiratory status improved to baseline Secondary to recurrent aspiration pneumonia History aspiration risk, esophageal dysfunction as per records -On oxygen (chronically on home oxygen -2.5 L at baseline) Will be discharged with p.o. Augmentin to complete total 7 days of course, Medrol Dosepak - ASPIRATION PNEUMONIA Afebrile, No leucocytosis. No signs of sepsis -Hx of aspiration and esophageal dysfunction in past -On p.o. Augmentin -Speech evaluation completed- Slippery soft bite sized diet recommended. -Patient is stable to be discharged home today BLOOD IN SPUTUM -Secondary to above in setting of Eliquis/Aspirin. Had few small episodes of blood in sputum Eliquis and aspirin was kept on hold Did not had any blood in sputum for last 2 days Eliquis and aspirin resumed CHRONIC HYPOXIC RESPIRATORY FAILURE Secondary to COPD Home oxygen- 2.5 L At baseline CKD III Baseline 1.5. Near baseline HX OF PAF -On Eliquis CHRONIC DIASTOLIC HEART FAILURE Echo 2018- EF 60-65%, -Stable volume status HX OF CAD S/P stent -Continue aspirin, Lopressor BID. HTN -Continue with Lopressor 50 mg PO BID, Amlodipine 5 mg daily/lisinopril MODERATE As per TTE 2018 HX OF AAA repair post surgery HX OF CVA per records On aspirin and statin Not sure if it was an embolic stroke DIABETES MELLITUS TYPE 2 Basal insulin-Lantus 5 units, ISS BG goal 140-180, update hemoglobin A1c-6.2 DVT prophylaxis. Eliquis DNR/DNI DISPOSITION Stable to be discharged home today, son and daughter present at bedside, updated Mr. Korey Logan, contact #[phone]. Subjective Feels fine, still have per day of cough with yellowish sputum, no blood in sputum No shortness of breath, no dyspnea on exertion, no fever or chills Stable to be discharged home today Physical Exam Constitutional: WD/WN, vitals as above Eyes: PERRL, conjunctivae normal, anicteric sclerae Neck: trachea midline, no thyromegaly Respiratory: normal respiratory effort; no respiratory distress Auscultation: + diminished lung sounds; no crackles, no rales and no wheezes Cardiovascular: RRR, no murmur, no edema Gastrointestinal (Abdomen): normal bowel sounds, soft, nontender, no hep atosplenomegaly Skin: no rashes, warm and dry Results & Data Vital Signs (Past 12 Hours) Vital Signs Temp Pulse Pulse Resp BP BP Pulse Ox 03/25/19 16:12 36.5 C 76 72 16 144/77 H 170/90 H 84 L 03/25/19 13:21 72 16 84 L 03/25/19 07:18 36.5 C 74 18 144/77 H 94 03/25/19 07:07 72 16 94
--- NOTE | 2019-03-25 17:23 | Discharge Summary ---
Date of Service March 25, 2019 Admission HPI Per Admitting Provider History obtained from patient and records. Medical history significant for chronic respiratory failure secondary to COPD on home O2, chronic diastolic heart failure EF of 60-65%, TTE 2018), CAD status post stent, HTN, aortic stenosis, PAF on Eliquis, AAA status post surgery, history CVA as per records, history of esophageal dysfunction/aspiration risk, CRI (baseline creatinine 1.5), chronic anemia (baseline hemoglobin 11), past tobacco use, prediabetes, history of skin cancer status post surgery, hx MRSA. Recent confinement November 2018 for COPD exacerbation. Possible aspiration pneumonitis on CAT scan. Patient had swallow eval during confinement. No aspiration on previous VFSS, barium swallow studies as per notes. Esophageal dysmotility noted. Patient counseled about slippery diet but known to be noncompliant as per documentation. Aspiration precautions, slippery diet recommended. 2 weeks history of hemoptysis symptoms, blood-streaked sputum, worsening shortness of breath. No chest pain. Achy left-sided lower quadrant abdominal pain noted with coughing. Occasional coughing with meals and water intake is not careful as per patient. Tries to do chin tuck during swallowing as recommended by PCP when he he can remember. At the ER, patient received Solu-Medrol, Azithromycin, and Unasyn. 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 Principal Diagnosis COPD exacerbation/aspiration pneumonia/blood in sputum resolved Discharge Exam Constitutional WD/WN, vitals as above Eyes PERRL, conjunctivae normal, anicteric sclerae Neck trachea midline, no thyromegaly Respiratory normal respiratory effort; no respiratory distress Auscultation: + diminished lung sounds; no crackles, no rales and no wheezes Cardiovascular RRR, no murmur, no edema Gastrointestinal (Abdomen) normal bowel sounds, soft, nontender, no hepatosplenomegaly Skin no rashes, warm and dry Discharge Data Allergies Allergy/AdvReac Type Severity Reaction Status Date / Time moxifloxacin AdvReac Mild dizziness Verified 03/19/19 22:13 Consultations 03/19/19 23:28 ED Decision to Admit Stat 03/20/19 01:39 Consult Pulmonology Routine Ordered Studies 03/19/19 22:03 CT angio abd pelvis wo/w con Stat CT angio chest dissec wo/w con Stat Hospital Course (1) COPD exacerbation: Resolved Respiratory status improved to baseline Secondary to recurrent aspiration pneumonia History aspiration risk, esophageal dysfunction as per records -On oxygen (chronically on home oxygen -2.5 L at baseline) Will be discharged with p.o. Augmentin to complete total 7 days of course, Medrol Dosepak - ASPIRATION PNEUMONIA Afebrile, No leucocytosis. No signs of sepsis -Hx of aspiration and esophageal dysfunction in past -On p.o. Augmentin -Speech evaluation completed- Slippery soft bite sized diet recommended. -Patient is stable to be discharged home today BLOOD IN SPUTUM -Secondary to above in setting of Eliquis/Aspirin. Had few small episodes of blood in sputum Eliquis and aspirin was kept on hold Did not had any blood in sputum for last 2 days Eliquis and aspirin resumed CHRONIC HYPOXIC RESPIRATORY FAILURE Secondary to COPD Home oxygen- 2.5 L At baseline CKD III Baseline 1.5. Near baseline HX OF PAF -On Eliquis CHRONIC DIASTOLIC HEART FAILURE Echo 2018- EF 60-65%, -Stable volume status HX OF CAD S/P stent -Continue aspirin, Lopressor BID. HTN -Continue with Lopressor 50 mg PO BID, Amlodipine 5 mg daily/lisinopril MODERATE As per TTE 2018 HX OF AAA repair post surgery HX OF CVA per records On aspirin and statin Not sure if it was an embolic stroke DIABETES MELLITUS TYPE 2 Basal insulin-Lantus 5 units, ISS BG goal 140-180, update hemoglobin A1c-6.2 DVT prophylaxis. Eliquis DNR/DNI DISPOSITION Stable to be discharged home today, son and daughter present at bedside, updated Mr. Korey Logan, contact #[phone]. Total Time Total Time Spent Total Time Spent (In Minutes): Approximately 45 minutes Total Time Includes: Examination of the Patient, Discharge Planning, Medication Reconciliation and Communication With Other Providers Discharge Plan Discharge Items Patient Disposition: Home - Self-Care Reason For Visit: RESP FAILURE Discharge Diagnosis: COPD EXACERBATION /aspiration pneumonia Discharge Goals: Decrease discomfort and Therapeutic intervention Activity: Resume your previous activity Non-emergency contact: Primary Care Provider Call non-emergency contact if: you have any medication questions Follow-up/Referrals: Ochoa Kelly [Primary Care Provider] - Diet: Carb Consistent or DM2 and Heart Healthy Diet Texture: Mechanical soft (ground) Addtl Provider Instructions: Hospital follow-up with family physician in a week Prescriptions: New amoxicillin-pot clavulanate 875-125 mg Tablet 1 tab PO BIDM 2 Days Qty: 4 RF: 0 methylprednisolone [Medrol (Hal)] 4 mg tablets,dose pack 4 mg PO UD Qty: 21 RF: 0 Continued furosemide 40 mg tablet 40 mg PO QAM RF: 0 ipratropium-albuterol 0.5 mg-3 mg(2.5 mg base)/3 mL Solution For Nebulization 3 ml INHALATION Q6H PRN (Reason: Shortness Of Breath Or Wheezing) RF: 0 donepezil 5 mg tablet 5 mg PO HS RF: 0 pravastatin 40 mg tablet 40 mg PO HS RF: 0 amlodipine 5 mg tablet 5 mg PO QAM RF: 0 aspirin 81 mg Tablet,Delayed Release (Dr/Ec) 81 mg PO QPM RF: 0 levothyroxine 50 mcg tablet 50 mcg PO QAM RF: 0 allopurinol 300 mg tablet 300 mg PO QAM RF: 0 lisinopril 5 mg tablet 5 mg PO HS RF: 0 furosemide 20 mg tablet 20 mg PO QAM RF: 0 apixaban 5 mg tablet 5 mg PO BID RF: 0 potassium chloride 10 mEq tablet,ER particles/crystals 10 meq PO QAM RF: 0 metoprolol tartrate 50 mg tablet 50 mg PO BID RF: 0 Combivent Respimat 20-100 mcg/actuation mist 2 puff inhalation Q6H PRN (Reason: Shortness Of Breath Or Wheezing) RF: 0 fluticasone propion-salmeterol [Advair Diskus] 500-50 mcg/dose Blister With Device 1 inh INHALATION BID RF: 0 albuterol sulfate [ProAir HFA] 90 mcg/actuation Hfa Aerosol Inhaler 2 puff INHALATION QID PRN (Reason: Shortness Of Breath Or Wheezing) RF: 0 Stand-Alone Forms: [facility] Discharge Orders: Discharge Order (Routine); Ordered 03/25/19 Ordered By: Bronwyn Grimes Admission Data Admit Date/Time: 03/20/19 01:33 Attending Provider: Bronwyn Grimes Admit Provider: Jim Yip Primary Care Provider: Ochoa Kelly Other Providers: Jim Yip ; Jonny Hart ; Morgan Carmichael ; Laury Fajardo ; Neville Lee ; Rosalva Singleton ; Jim Lopez ; Wendy Flood ; Rizwan Leija ; Daniel Gaines ; Jennifer George ; Aj Patel ; Redd King ; Uche Rocha ; Anahy Elkins Service: Medical Other Interventions: Discharge Summary Assessment (RN) Last Done: 03/25/19 16:12
== END 2019-03-25 17:38 | disposition home or self-care (01) | DRG 178 ==
LOC: ED 20:16 → SUATTDRO 03-20 01:33 → 4W 03-20 01:33

== ENCOUNTER 2019-07-02 10:53 | Inpatient (IN) ==
[2019-07-02] MEDS ORDERED: methylPREDNISolone 125 MG/2 ML VIAL IV STA (12:08)
[2019-07-02] MEDS ORDERED: MAGNESIUM SULFATE / D5W 1 GM/100 ML BAG IV ONE ×2 (12:08→13:44)
[2019-07-02] MEDS ORDERED: ALBUT/IPRATROP 3MG/0.5MG NEB 3 ML VIAL INH STA (12:08)
[2019-07-02 12:17] LABS: Basophils # (auto) 0.02 K/uL (0-0.2); Basophils % (auto) 0.3 %; Eosinophils # (auto) 0.37 K/uL (0-0.5); Eosinophils % (auto) 5.3 %; Hematocrit (blood only) 38.2 % (42-52); Hemoglobin 12.1 g/dL (14.0-18.0); Immature Granulocytes # (auto) 0.02 K/uL (0.00-0.02); Immature Granulocytes % (auto) 0.3 %; Lymphocytes # (auto) 1.04 K/uL (1.2-3.4); Lymphocytes % (auto) 14.9 %; Mean Corpuscular Hemoglobin 30.9 pg (25-34); Mean Corpuscular Hgb Conc 31.7 g/dL (32-36); Mean Corpuscular Volume 97.4 fL (80-100); Mean Platelet Volume 9.6 fL (7.4-10.4); Monocytes # (auto) 0.62 K/uL (0.11-0.59); Monocytes % (auto) 8.9 %; Neutrophils % (auto) 70.3 %; Platelet Count 171 K/uL (130-400); RDW Coefficient of Variation 14.2 % (11.5-14.5); RDW Standard Deviation 50.5 fL (36.4-46.3); Red Blood Count 3.92 M/uL (4.7-6.1); White Blood Count 6.97 K/uL (4.8-10.8)
[2019-07-02 12:28] LABS: Partial Thromboplastin Ratio 1.1; Partial Thromboplastin Time 30.2 Seconds (21.0-31.0); Prothrombin Time 10.5 Seconds (9.0-12.0)
[2019-07-02 12:33] LABS: Albumin Level 3.6 gm/dl (3.4-5.0); BUN Creatinine Ratio 19.3 (10-20); Calcium 8.7 mg/dl (8.5-10.1); Creatinine Clr Calc Pharmacy 34.9 ml/min; Est GFR (African American) 44.8; Est GFR (Non-African American) 38.7; Potassium 3.9 mmol/L (3.5-5.1)
[2019-07-02 12:36] LABS: Albumin Globulin Ratio 1.2 (0.9-2); Bilirubin,Total 0.4 mg/dl (0.2-1); Globulin 3.1 gm/dl (2.5-4.0); Total Protein 6.7 gm/dl (6.4-8.2)
--- NOTE | 2019-07-02 12:47 | XRay Report ---
XR chest 1V portable CLINICAL HISTORY: 83 years-old Male presenting with Dyspnea. TECHNIQUE: Portable upright AP view of the chest was obtained. COMPARISON: 03/19/2019. FINDINGS: Atherosclerosis of the aortic arch. Cardiac silhouette normal in size. Bibasilar bandlike and irregul ar opacities. Bronchial wall thickening suggested in the paramediastinal right lower lung. Radiolucen cy at the upper lobes as on prior exam and unlikely to represent pneumothorax. Degenerative changes o f the thoracic spine. Chronic rotator cuff tear suspected. IMPRESSION: 1. Extensive bibasilar infiltrates and bronchial wall thickening greater on the right similar to wayne or exam. This could represent chronic aspiration or cicatrizing atelectasis. Underlying infection can not be excluded. 2. Emphysema with significant bullous changes at the apices. Electronically signed by: Travis Griffin M.D. 07/02/2019 12:46 PM
[2019-07-02 12:50] LABS: Base Excess VBG 11.5 mEq/L; HCO3 VBG 40 mmol/L; PCO2 VBG 72 mmHg (38-50); PO2 VBG 28 mmHg; pH VBG 7.36 (7.36-7.41)
[2019-07-02 12:51] LABS: Oxygen Saturation VBG < 60.0 %
[2019-07-02] MEDS ORDERED: PIPERACILLIN/TAZOBACTAM 4.5 GM/120 ML BAG IV ONE (13:18)
[2019-07-02] MEDS ORDERED: PIPERACILL/TAZOBAC CONSULT ACTIVE PRN ×2 (13:18→21:02)
[2019-07-02 13:30] LABS: Appearance Urine Clear (Clear); Bilirubin Urine Negative (Negative); Blood Urine Negative (Negative); Color Urine Yellow; Glucose Urine UA Negative (Negative); Ketones Urine Negative (Negative); Leukocyte Esterase Urine Negative (Negative); Nitrite Urine Negative (Negative); Protein Urine Negative (Negative); Specific Gravity Urine 1.014 (1.000-1.030); Urobilinogen Urine Negative (Negative)
[2019-07-02] MEDS ORDERED: ALBUT/IPRATROP 3MG/0.5MG NEB 3 ML VIAL NEB STA (13:44)
--- NOTE | 2019-07-02 16:19 | Emergency Department Note ---
Entered by Demi Romero acting as a scribe for Anthony Buitrago MD History of Present Illness General Chief complaint: Shortness of Breath/Dyspnea Stated complaint: COPD, PNEUMONIA Time Seen by Provider: 07/02/19 12:00 Source: patient History of Present Illness Onset (ago): month(s) (a few months ago) Location: chest Pain Consistency: + other (worsening) Maximum Pain Intensity: 5 Quality: + other (shortness of breath) Relieved By: not by medication (inhalers, nebulizers, O2) Associated symptoms: + cough, + weakness and + other (leg swelling, being off balance); no chest pain and no nausea/vomiting (nausea) The patient is an 83 year old male w/ PMHx CAD, CHF, HTN, hyperlipidemia, AAA, COPD, emphysema, CVA, seborrheic keratosis, squamous cell carcinoma, and MRSA infection who presents to the ED w/ CC of worsening shortness of breath starting a few months ago. The patient states that the he has been using his O2, inhalers, and nebulizers with no relief. He reports that it feels like he has no breath. He states that along with the shortness of breath, he has had a productive cough that produces a white substance. The patient notes that he was a former smoker and stopped smoking in 1989. His daughter notes that his O2 typically runs at 98%. She notes that he last saw his machine cloth measurer last time he was here in February. The patient notes that he does walk and is supposed to use a walker, but doesnt typically use it. He notes that he has felt weak though so he started using it within the past month. The patient complains of leg swelling and being off balance. The patient denies chest pain and nausea. Home Medications Home Medications Medication Instructions Recorded Confirmed Type allopurinol 300 mg PO QAM 12/05/18 07/02/19 History amlodipine 5 mg PO QAM 12/05/18 07/02/19 History apixaban 5 mg PO BID 12/05/18 07/02/19 History aspirin 81 mg PO HS 12/05/18 07/02/19 History donepezil 5 mg PO HS 12/05/18 07/02/19 History furosemide 20 mg PO QAM 12/05/18 07/02/19 History furosemide 40 mg PO QAM 12/05/18 07/02/19 History ipratropium-albuterol 3 ml INHALATION Q6H PRN 12/05/18 07/02/19 History levothyroxine 50 mcg PO QAM 12/05/18 07/02/19 History lisinopril 5 mg PO HS 12/05/18 07/02/19 History pravastatin 40 mg PO HS 12/05/18 07/02/19 History Combivent Respimat 2 puff INHALATION Q6H PRN 03/19/19 07/02/19 History albuterol sulfate [ProAir HFA] 2 puff INHALATION QID PRN 03/19/19 07/02/19 History metoprolol tartrate 50 mg PO BID 03/19/19 07/02/19 History potassium chloride 10 meq PO QAM 03/19/19 07/02/19 History fluticasone furoate-vilanterol 1 inh INHALATION QAM 07/02/19 07/02/19 History [Breo Ellipta] Allergies Allergy/AdvReac Type Severity Reaction Status Date / Time moxifloxacin AdvReac Mild dizziness Verified 07/02/19 12:31 Past Med/Surg History Medical History CAD (coronary artery disease) (Chronic) "s/p stent" Chronic diastolic heart failure (Chronic) "Echo 09/2014- EF 55-60%, grade 1 diastolic dysfunction" On 03/14/15 19:57 Frances Carpenter wrote "Echo 10/26- EF 55-60%, grade 1 diastolic dysfunction" On 03/14/15 19:51 Frances Carpenter wrote "EF 55-60%" Hx MRSA infection (Chronic) "per records" Hypertension (Chronic) Dependence on continuous supplemental oxygen (Chronic) Pulmonary hypertension (Chronic) "Moderate on echo 09/2014" Hx of pulmonary aspiration (Chronic) Benign enlargement of prostate (Chronic) Mixed hyperlipidemia (Chronic) AAA (abdominal aortic aneurysm) without rupture (Chronic) Pulmonary emphysema (Chronic) History of CVA (cerebrovascular accident) without residual deficits (Resolved) Gout (Chronic) H/O seborrheic keratosis (Chronic) Squamous cell carcinoma of lip (Resolved) Chest pain Surgical History S/P knee replacement (Chronic) Hx of squamous cell carcinoma excision (Chronic) "upper lip" S/P coronary artery stent placement (Chronic) "2006 and 2008" S/P hernia repair (Chronic) S/P AAA repair (Chronic) Family History Other No significant family history Social History Preferred Language: Kyr[place] Communication Ability: Effective 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 and A total of 10 systems reviewed and were otherwise negative Physical Exam Vital Signs Vital Signs - 24 hr 07/02/19 10:57 07/02/19 10:58 07/02/19 11:26 Temperature 36.9 C Temperature Source Oral Sepsis Recent Fever Within 48 Hours No Sepsis New/Unexplained Change in Mental Status No Sepsis Action Taken by Nursing No Action Required Pulse Rate 69 Pulse Rate [Apical] 68 Pulse Rate from SpO2 Sensor Pulse Rhythm [Apical] Respiratory Rate 20 21 Respiratory Effort / Characteristics Spontaneous Respiratory Depth Respiratory Pattern Blood Pressure 137/64 Blood Pressure [Left Arm] 136/70 Blood Pressure Mean 88 Blood Pressure Mean [Left Arm] 92 Pulse Oximetry 100 94 Oxygen Delivery Method Nasal Cannula Nasal Cannula Nasal Cannula Oxygen Flow Rate 3 3 3 07/02/19 11:30 07/02/19 12:00 07/02/19 12:01 Temperature Temperature Source Sepsis Recent Fever Within 48 Hours Sepsis New/Unexplained Change in Mental Status Sepsis Action Taken by Nursing Pulse Rate 74 66 76 Pulse Rate [Apical] Pulse Rate from SpO2 Sensor 74 75 Pulse Rhythm [Apical] Respiratory Rate 25 H 24 20 Respiratory Effort / Characteristics Respiratory Depth Respiratory Pattern Blood Pressure 145/73 H 104/65 Blood Pressure [Left Arm] Blood Pressure Mean 97 78 Blood Pressure Mean [Left Arm] Pulse Oximetry 92 95 Oxygen Delivery Method Nasal Cannula Nasal Cannula Oxygen Flow Rate 3 3 07/02/19 12:25 07/02/19 12:34 07/02/19 12:40 Temperature Temperature Source Sepsis Recent Fever Within 48 Hours Sepsis New/Unexplained Change in Mental Status Sepsis Action Taken by Nursing Pulse Rate Pulse Rate [Apical] 66 Pulse Rate from SpO2 Sensor Pulse Rhythm [Apical] Respiratory Rate 18 Respiratory Effort / Characteristics Spontaneous Respiratory Depth Respiratory Pattern Blood Pressure Blood Pressure [Left Arm] Blood Pressure Mean Blood Pressure Mean [Left Arm] Pulse Oximetry 94 80 L 93 Oxygen Delivery Method Nasal Cannula Nasal Cannula Nasal Cannula Oxygen Flow Rate 3 3 3 07/02/19 13:04 07/02/19 13:30 07/02/19 14:00 Temperature Temperature Source Sepsis Recent Fever Within 48 Hours Sepsis New/Unexplained Change in Mental Status Sepsis Action Taken by Nursing Pulse Rate 73 78 Pulse Rate [Apical] 72 Pulse Rate from SpO2 Sensor 73 78 Pulse Rhythm [Apical] Respiratory Rate 15 15 19 Respiratory Effort / Characteristics Respiratory Depth Respiratory Pattern Blood Pressure 129/62 138/71 Blood Pressure [Left Arm] 136/67 Blood Pressure Mean 84 93 Blood Pressure Mean [Left Arm] 90 Pulse Oximetry 93 93 92 Oxygen Delivery Method Nasal Cannula Nasal Cannula Nasal Cannula Oxygen Flow Rate 3 3 3 07/02/19 14:05 07/02/19 15:00 07/02/19 16:15 Temperature Temperature Source Sepsis Recent Fever Within 48 Hours Sepsis New/Unexplained Change in Mental Status Sepsis Action Taken by Nursing Pulse Rate 87 Pulse Rate [Apical] 72 88 Pulse Rate from SpO2 Sensor 87 Pulse Rhythm [Apical] Regular Respiratory Rate 18 19 17 Respiratory Effort / Characteristics Spontaneous Non-Labored Spontaneous Respiratory Depth Normal Respiratory Pattern Regular Blood Pressure 109/64 Blood Pressure [Left Arm] 135/71 Blood Pressure Mean 79 Blood Pressure Mean [Left Arm] 92 Pulse Oximetry 93 91 94 Oxygen Delivery Method Nasal Cannula Nasal Cannula Nasal Cannula Oxygen Flow Rate 3 4 4 GENERAL: Well nourished, non-toxic. Wearing glasses. On nasal cannula. EYE EXAM: Normal conjunctiva. PERRL, no anisocoria and EOM's grossly intact w/o pain. OROPHARYNX: Moist mucous membranes. Grossly normal dentition. NECK: Supple, no nuchal rigidity, no adenopathy, non-tender. No signs of meningismus. LUNGS: Mild tachypnea with crackles in bilateral bases w/ wheezes throughout. HEART: NSR, no MRG. ABDOMEN: Abdomen soft, non-tender, normo-active bowel sounds, no masses, no rebound or guarding. BACK: No CVA TTP. SKIN: No rashes and no bruising. UPPER EXTREMITIES: Upper extremities are grossly normal. LOWER EXTREMITIES: 2+ lower extremity edema. Scant redness of the left lower extremity with no pain. No calf pain. NEURO EXAM: A&O x3, cranial nerves II-XII grossly intact, normal speech, moves all 4 extremities on command w/o issue. Course 1202: Past medical records reviewed. The patient was evaluated in room C10. A complete history and physical exam was performed. 1233: Nursing staff called me and informed me that his oxygen saturations drop ped to 76%. 1319: I reevaluated the patient and updated him on his test results. I discussed the treatment plan with him. He verbally agrees and understands. 1344: I discussed the patient's case with FORTINO Edwards. She will evaluate the patient for further management under Dr. Grimes's service. Consultations Consultation #1: I discussed the patient's case with FORTINO Edwards. She will evaluate the patient for further management under Dr. Grimes's service. Time: 13:44 Administered Medications Discontinued Medications Albuterol (Duoneb) 6 ml INH NOW STA Stop: 07/02/19 12:09 Last Admin: 07/02/19 12:33 Dose: 6 ml Documented by: [id number] Albuterol (Duoneb) 6 ml NEB NOW STA Stop: 07/02/19 13:45 Last Admin: 07/02/19 14:05 Dose: 6 ml Documented by: [id number] Magnesium Sulfate/Dextrose (Magnesium Sulfate / D5w) 1 gm in 100 mls @ 100 mls/hr IV ONE ONE Stop: 07/02/19 13:07 Last Infusion: 07/02/19 13:37 Dose: 0 mls/hr Documented by: [id number] Admin: 07/02/19 12:37 Dose: 100 mls/hr Documented by: [id number] Piperacillin Sod/Tazobactam Sod (Zosyn) 4.5 gm in 120 mls @ 240 mls/hr IV NOW ONE Stop: 07/02/19 13:47 Last Infusion: 07/02/19 14:15 Dose: 0 mls/hr Documented by: [id number] Admin: 07/02/19 13:45 Dose: 240 mls/hr Documented by: [id number] Magnesium Sulfate/Dextrose (Magnesium Sulfate / D5w) 1 gm in 100 mls @ 100 m ls/hr IV ONE ONE Stop: 07/02/19 14:43 Last Infusion: 07/02/19 15:37 Dose: 0 mls/hr Documented by: [id number] Admin: 07/02/19 14:37 Dose: 100 mls/hr Documented by: [id number] Methylprednisolone (Solumedrol) 125 mg IV NOW STA Stop: 07/02/19 12:09 Last Admin: 07/02/19 12:34 Dose: 125 mg Documented by: [id number] Medical Decision Making Differential Diagnosis Differential diagnoses includes but is not limited to pneumonia, bronchitis, COPD/Asthma exacerbation, pneumothorax, pulmonary embolism, congestive heart failure, acute coronary syndrome Medical Records Attestation: I reviewed the patient's medical records. Home Medications Current Medication List: was personally reviewed by me Laboratory Data Attestation: I reviewed the patient's lab results. Result diagrams: 07/02/19 12:01 07/02/19 12:01 Lab Results 07/02/19 07/02/19 07/02/19 Range/Units 12:01 12:01 12:01 WBC 6.97 (4.8-10.8) K/uL RBC 3.92 L (4.7-6.1) M/uL Hgb 12.1 L (14.0-18.0) g/dL Hct 38.2 L (42-52) % MCV 97.4 (80-100) fL MCH 30.9 (25-34) pg MCHC 31.7 L (32-36) g/dL RDW Std Deviation 50.5 H (36.4-46.3) fL RDW Coeff of Lety 14.2 (11.5-14.5) % Plt Count 171 (130-400) K/uL MPV 9.6 (7.4-10.4) fL Immature Gran % (Auto) 0.3 % Neut % (Auto) 70.3 % Lymph % (Auto) 14.9 % Fisher % (Auto) 8.9 % Eos % (Auto) 5.3 % Baso % (Auto) 0.3 % Immature Gran # (Auto) 0.02 (0.00-0.02) K/uL Neut # (Auto) 4.90 (1.4-6.5) K/uL Lymph # (Auto) 1.04 L (1.2-3.4) K/uL Fisher # (Auto) 0.62 H (0.11-0.59) K/uL Eos # (Auto) 0.37 (0-0.5) K/uL Baso # (Auto) 0.02 (0-0.2) K/uL PT 10.5 (9.0-12.0) Seconds INR 1.0 (0.9-1.1) APTT 30.2 (21.0-31.0) Seconds PTT Ratio 1.1 VBG pH (7.36-7.41) VBG pCO2 (38-50) mmHg VBG pO2 mmHg VBG HCO3 mmol/L VBG O2 Saturation % VBG Base Excess mEq/L Barometric Pressure mm/Hg Sodium 144 (136-145) mmol/L Potassium 3.9 (3.5-5.1) mmol/L Chloride 101 (98-107) mmol/L Carbon Dioxide 40 H (21-32) mmol/L Anion Gap 3.0 (3-11) BUN 32 H (7-18) mg/dl Creatinine 1.63 H (0.6-1.4) mg/dl Est Cr Clr Drug Dosing 34.9 ml/min Est GFR ( Amer) 44.8 Est GFR (Non-Af Amer) 38.7 BUN/Creatinine Ratio 19.3 (10-20) Glucose 94 (70-99) mg/dl Calcium 8.7 (8.5-10.1) mg/dl Total Bilirubin 0.4 (0.2-1) mg/dl AST 18 (15-37) U/L ALT 15 (12-78) U/L Alkaline Phosphatase 47 (45-117) U/L Total Protein 6.7 (6.4-8.2) gm/dl Albumin 3.6 (3.4-5.0) gm/dl Globulin 3.1 (2.5-4.0) gm/dl Albumin/Globulin Ratio 1.2 (0.9-2) Urine Color Urine Appearance (Clear) Urine pH (4.5-7.5) Ur Specific [place] (1.000-1.030) Urine Protein (Negative) Urine Glucose (UA) (Negative) Urine Ketones (Negative) Urine Blood (Negative) Urine Nitrite (Negative) Urine Bilirubin (Negative) Urine Urobilinogen (Negative) Ur Leukocyte Esterase (Negative) 07/02/19 07/02/19 Range/Units 12:30 12:38 WBC (4.8-10.8) K/uL RBC (4.7-6.1) M/uL Hgb (14.0-18.0) g/dL Hct (42-52) % MCV (80-100) fL MCH (25-34) pg MCHC (32-36) g/dL RDW Std Deviation (36.4-46.3) fL RDW Coeff of Lety (11.5-14.5) % Plt Count (130-400) K/uL MPV (7.4-10.4) fL Immature Gran % (Auto) % Neut % (Auto) % Lymph % (Auto) % Fisher % (Auto) % Eos % (Auto) % Baso % (Auto) % Immature Gran # (Auto) (0.00-0.02) K/uL Neut # (Auto) (1.4-6.5) K/uL Lymph # (Auto) (1.2-3.4) K/uL Fisher # (Auto) (0.11-0.59) K/uL Eos # (Auto) (0-0.5) K/uL Baso # (Auto) (0-0.2) K/uL PT (9.0-12.0) Seconds INR (0.9-1.1) APTT (21.0-31.0) Seconds PTT Ratio VBG pH 7.36 (7.36-7.41) VBG pCO2 72 H (38-50) mmHg VBG pO2 28 mmHg VBG HCO3 40 mmol/L VBG O2 Saturation < 60.0 % VBG Base Excess 11.5 mEq/L Barometric Pressure 729.3 mm/Hg Sodium (136-145) mmol/L Potassium (3.5-5.1) mmol/L Chloride (98-107) mmol/L Carbon Dioxide (21-32) mmol/L Anion Gap (3-11) BUN (7-18) mg/dl Creatinine (0.6-1.4) mg/dl Est Cr Clr Drug Dosing ml/min Est GFR ( Amer) Est GFR (Non-Af Amer) BUN/Creatinine Ratio (10-20) Glucose (70-99) mg/dl Calcium (8.5-10.1) mg/dl Total Bilirubin (0.2-1) mg/dl AST (15-37) U/L ALT (12-78) U/L Alkaline Phosphatase (45-117) U/L Total Protein (6.4-8.2) gm/dl Albumin (3.4-5.0) gm/dl Globulin (2.5-4.0) gm/dl Albumin/Globulin Ratio (0.9-2) Urine Color Yellow Urine Appearance Clear (Clear) Urine pH 7.0 (4.5-7.5) Ur Specific [place] 1.014 (1.000-1.030) Urine Protein Negative (Negative) Urine Glucose (UA) Negative (Negative) Urine Ketones Negative (Negative) Urine Blood Negative (Negative) Urine Nitrite Negative (Negative) Urine Bilirubin Negative (Negative) Urine Urobilinogen Negative (Negative) Ur Leukocyte Esterase Negative (Negative) Imaging Data Radiologist's Impression: Radiology results as stated below per my review and the radiologist's interpretation: XR chest 1V portable CLINICAL HISTORY: 83 years-old Male presenting with Dyspnea. TECHNIQUE: Portable upright AP view of the chest was obtained. COMPARISON: 03/19/2019. FINDINGS: Atherosclerosis of the aortic arch. Cardiac silhouette normal in size. Bibasilar bandlike and irregular opacities. Bronchial wall thickening suggested in the paramediastinal right lower lung. Radiolucency at the upper lobes as on prior exam and unlikely to represent pneumothorax. Degenerative changes of the thoracic spine. Chronic rotator cuff tear suspected. IMPRESSION: 1. Extensive bibasilar infiltrates and bronchial wall thickening greater on the right similar to prior exam. This could represent chronic aspiration or cicatrizing atelectasis. Underlying infection cannot be excluded. 2. Emphysema with significant bullous changes at the apices. Electronically signed by: Travis Griffin M.D. 07/02/2019 12:46 PM ECG Data Attestation: I personally reviewed and interpreted this ECG as follows: Indication: SOB/dyspnea Rate (beats per minute): 71 Rhythm: sinus rhythm Findings: + other (motion artifact, wide QRS) and + RBBB; no ST depression, no ST elevation and no acute ischemic change Comparison ECG Date: from (03/19/2019) Change: no significant change (morphology unchanged) Blood Pressure Blood Pressure Findings: Elevated blood pressure Blood Pressure Disposition: further management by hospitalist MDM Narrative The patient is an 83 year old male w/ PMHx CAD, CHF, HTN, hyperli pidemia, AAA, COPD, emphysema, CVA, seborrheic keratosis, squamous cell carcinoma, and MRSA infection who presents to the ED w/ CC of worsening shortness of breath starting a few months ago. Patient was seen and evaluated the bedside. The patient did present with worsening shortness of breath and associated difficulty with breathing. The patient has had a productive cough with whitish sputum. Patient does see Dr. Hart as an outpatient. Patient's last admission was in February. Patient does h ave some lower extremity swelling but this is chronic. The patient does have diffuse wheezes and crackles on exam. The patient was ambulatory but did have a desat to the mid to low 70s. The patient did have blood work completed along with a chest x-ray which did show bilateral bilateral opacities and concern for possible aspiration pneumonia. The patient was started on Zosyn. Given some additional magnesium and DuoNeb's. I did speak the on-call hospitalist agreed to further evaluate treat the patient. Patient was admitted to the medicine service per Impression & Plan Aspiration pneumonia, COPD exacerbation, Hypoxic, Respiratory failure Critical Care Time Critical Care Time: Yes Total Critical Care Time: 45 I have personally spent greater than 45 minutes of critical care time in direct management of this patient. This includes bedside care, interpretation of diagnostic studies, and testing, discussion with consultants, patient, and family members, and other require inpatient management activities. This 45 minutes is in excess of all separately billable procedures. Discharge Plan Visit Data Chief Complaint: Shortness of Breath/Dyspnea Stated Complaint: COPD, PNEUMONIA ED Provider: Anthony Buitrago Discharge Problem: Aspiration pneumonia, COPD exacerbation, Hypoxic, Respiratory failure Patient Disposition: Being Evaluated by Hospitalist Forms Stand Alone Forms: My [employer] Prescriptions Prescriptions: No Action furosemide 40 mg tablet 40 mg PO QAM RF: 0 ipratropium-albuterol 0.5 mg-3 mg(2.5 mg base)/3 mL Solution For Nebulization 3 ml INHALATION Q6H PRN (Reason: Shortness Of Breath Or Wheezing) RF: 0 donepezil 5 mg tablet 5 mg PO HS RF: 0 pravastatin 40 mg tablet 40 mg PO HS RF: 0 amlodipine 5 mg tablet 5 mg PO QAM RF: 0 aspirin 81 mg Tablet,Delayed Release (Dr/Ec) 81 mg PO HS RF: 0 levothyroxine 50 mcg tablet 50 mcg PO QAM RF: 0 allopurinol 300 mg tablet 300 mg PO QAM RF: 0 lisinopril 5 mg tablet 5 mg PO HS RF: 0 furosemide 20 mg tablet 20 mg PO QAM RF: 0 apixaban 5 mg tablet 5 mg PO BID RF: 0 potassium chloride 10 mEq tablet,ER particles/crystals 10 meq PO QAM RF: 0 metoprolol tartrate 50 mg tablet 50 mg PO BID RF: 0 Combivent Respimat 20-100 mcg/actuation mist 2 puff inhalation Q6H PRN (Reason: Shortness Of Breath Or Wheezing) RF: 0 albuterol sulfate [ProAir HFA] 90 mcg/actuation Hfa Aerosol Inhaler 2 puff INHALATION QID PRN (Reason: Shortness Of Breath Or Wheezing) RF: 0 Breo Ellipta 100-25 mcg/dose Blister With Device 1 inh INHALATION QAM RF: 0 Referrals Referrals: Ochoa Kelly DO [Primary Care Provider] - Discharge Problem: Aspiration pneumonia Qualifiers: Aspiration pneumonia type: unspecified Laterality: unspecified laterality Lung location: unspecified part of lung Qualified Code(s): J69.0 - Pneumonitis due to inhalation of food and vomit Respiratory failure Qualifiers: Chronicity: unspecified Respiratory failure complication: unspecified whether with hypoxia or hypercapnia Qualified Code(s): J96.90 - Respiratory failure, unspecified, unspecified whether with hypoxia or hypercapnia The scribe's documentation has been prepared under my direction and personally reviewed by me in its entirety. I confirm that the note above accurately reflects all work, treatment, procedures, and medical decision making performed by me.
--- NOTE | 2019-07-02 17:10 | History & Physical Report ---
Date of Service July 02, 2019 Assessment & Plan (1) Acute on chronic respiratory failure with hypoxia: (2) Acute on chronic diastolic CHF (congestive heart failure): (3) COPD exacerbation: (4) Pneumonia: -[facility] -Patient presenting from home with reports of worsening shortness of breath, cough, lower extremity edema -In the ED, patient desaturated to 80% on his chronic 3 L of oxygen, currently requiring 4 L -On exam, has significant wheezing and rhonchi -CXR shows bibasilar infiltrates however unchanged from prior exam -Received IV Zosyn in the ED, will continue with for possible aspiration -IV steroids, nebs, incentive spirometer, flutter valve -Also has lower extremity edema on exam, likely acute on chronic diastolic CHF -will give Lasix 40 mg IV x1 dose today, reassess further diuresis needs in the morning -Update echo (5) Pulmonary nodules: -Patient had CT chest 03/2019 that demonstrated multiple, new, spiculated nodules -Close repeat CT was recommended which patient was to have completed today -will order once patient's pulmonary status is stabilized (6) CKD (chronic kidney disease), stage III: -Baseline creatinine runs in the mid ones -Creatinine 1.6 today -Follow renal functions (7) Paroxysmal atrial fibrillation: -Rate controlled on metoprolol, will continue -Anticoagulated on Eliquis; varying renal function noted, may need dose adjustment in the future (8) CAD (coronary artery disease): -Appears stable, no reports of chest pain -Continue aspirin, statin, beta-hafsa, DELLA inhibitor (9) Hypertension: -BP controlled, continue amlodipine, metoprolol, lisinopril (10) DVT prophylaxis: -Anticoagulated on Eliquis History of Present Illness Chief Complaint: Shortness of breath, cough Primary Care Provider: Ochoa Kelly DO 83-year-old male who presents the ED with shortness of breath and cough. Patient reports he has been having increasing shortness of breath over the past 1 month. He also has had a cough productive for white sputum. Symptoms have acutely worsened over the past few days. He also has noted increasing lower extremity edema. He started wearing compression stockings yesterday. Patient denies fevers and chills. No lightheadedness, dizziness, diaphoresis, syncopal events. He denies chest pain and palpitations. No abdominal pain, nausea, vomiting, diarrhea. He denies any urinary symptoms. In the ED, patient desaturated to 80% on his chronic 3 L of oxygen. Oxygen was increased to 4 L and oxygenation improved. CXR shows extensive bibasilar infiltrates however similar to prior exam. Labs demonstrate chronic CO2 retention, otherwise unremarkable. Patient was given IV Zosyn, IV Solu-Medrol, IV magnesium, albuterol treatment. Allergies Allergy/AdvReac Type Severity Reaction Status Date / Time moxifloxacin AdvReac Mild dizziness Verified 07/02/19 12:31 Home Medications Home Medications Medication Instructions Recorded Confirmed Type allopurinol 300 mg PO QAM 12/05/18 07/02/19 History amlodipine 5 mg PO QAM 12/05/18 07/02/19 History apixaban 5 mg PO BID 12/05/18 07/02/19 History aspirin 81 mg PO HS 12/05/18 07/02/19 History donepezil 5 mg PO HS 12/05/18 07/02/19 History furosemide 20 mg PO QAM 12/05/18 07/02/19 History furosemide 40 mg PO QAM 12/05/18 07/02/19 History ipratropium-albuterol 3 ml INHALATION Q6H PRN 12/05/18 07/02/19 History levothyroxine 50 mcg PO QAM 12/05/18 07/02/19 History lisinopril 5 mg PO HS 12/05/18 07/02/19 History pravastatin 40 mg PO HS 12/05/18 07/02/19 History Combivent Respimat 2 puff INHALATION Q6H PRN 03/19/19 07/02/19 History albuterol sulfate [ProAir HFA] 2 puff INHALATION QID PRN 03/19/19 07/02/19 History metoprolol tartrate 50 mg PO BID 03/19/19 07/02/19 History potassium chloride 10 meq PO QAM 03/19/19 07/02/19 History fluticasone furoate-vilanterol 1 inh INHALATION QAM 07/02/19 07/02/19 History [Breo Ellipta] Past Med/Surg History Medical History CKD (chronic kidney disease), stage III (Chronic) Paroxysmal atrial fibrillation (Chronic) CAD (coronary artery disease) (Chronic) "s/p stent" Chronic diastolic heart failure (Chronic) Hx MRSA infection (Chronic) "per records" Hypertension (Chronic) Dependence on continuous supplemental oxygen (Chronic) Pulmonary hypertension (Chronic) "Moderate on echo 09/2014" Hx of pulmonary aspiration (Chronic) Benign enlargement of prostate (Chronic) Mixed hyperlipidemia (Chronic) AAA (abdominal aortic aneurysm) without rupture (Chronic) Pulmonary emphysema (Chronic) History of CVA (cerebrovascular accident) without residual deficits (Resolved) Gout (Chronic) H/O seborrheic keratosis (Chronic) Squamous cell carcinoma of lip (Resolved) Surgical History S/P knee replacement (Chronic) Hx of squamous cell carcinoma excision (Chronic) "upper lip" S/P coronary artery stent placement (Chronic) "2005 and 2007" S/P hernia repair (Chronic) S/P AAA repair (Chronic) Family History Other No significant family history Social History Preferred Language: Sammarinese Communication Ability: Effective 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 Beliefs That Will Affect Care: None marital status: / Current Living Situation: Alone Current Living Situation Comment: 3 children current occupational status: retired Other Information That Helps Us Care for You: No Feels Safe at Home: Yes Smoking Status: Former smoker Tobacco Type: cigarettes and smokeless tobacco ; Cigarettes Per Day: 20 ; Do You Dip or Chew Tobacco: No ; Second Hand Exposure: No ; Hx Alcohol Use: No Hx Substance Use: No Review of Systems Review of Systems: ROS per HPI, all other systems reviewed and negative Physical Exam Constitutional: WD/WN, vitals as above ENMT: external ear and nose normal, oropharynx normal Respiratory: + cough (Harsh, nonproductive) Auscultation: + diminished lung sounds, + rhonchi (Scattered) and + wheezes (Expiratory) Cardiovascular: Rate/Rhythm: regular rate and regular rhythm Vessels: normal peripheral pulses Extremities: + edema (+2-3 pitting BLE) Gastrointestinal (Abdomen): normal bowel sounds, soft, nontender, no hepatosplenomegaly Musculoskeletal: no cyanosis or clubbing, extremities motor strength 5/5 Skin: no rashes, warm and dry Neurologic: PERRL, EOMI, accommodation nl, no face palsy, no dysarthria Psychiatric: A+Ox3, euthymic affect Results & Data Vital Signs (Past 12 Hours) Vital Signs Temp Pulse Pulse Resp BP BP Pulse Ox 07/02/19 17:00 89 22 121/65 93 07/02/19 16:30 88 24 128/69 07/02/19 16:15 88 17 135/71 94 07/02/19 16:00 90 24 127/72 90 07/02/19 15:30 86 15 131/73 90 07/02/19 15:00 87 19 109/64 91 07/02/19 14:05 72 18 93 07/02/19 14:00 78 19 138/71 92 07/02/19 13:30 73 15 129/62 93 07/02/19 13:04 72 15 136/67 93 07/02/19 12:40 66 18 93 07/02/19 12:34 80 L 07/02/19 12:25 94 07/02/19 12:01 76 20 104/65 95 07/02/19 12:00 66 24 07/02/19 11:30 74 25 H 145/73 H 92 07/02/19 11:26 68 21 136/70 94 07/02/19 10:58 36.9 C 69 20 137/64 100 Laboratory Results Short CBC 07/02/19 07/02/19 Range/Units 12:01 12:01 WBC 6.97 (4.8-10.8) K/uL Hgb 12.1 L (14.0-18.0) g/dL Hct 38.2 L (42-52) % Plt Count 171 (130-400) K/uL Creatinine 1.63 H (0.6-1.4) mg/dl BMP 07/02/19 12:01 Sodium 144 Potassium 3.9 Chloride 101 Carbon Dioxide 40 H BUN 32 H Creatinine 1.63 H Glucose 94 Calcium 8.7 Liver Function 07/02/19 Range/Units 12:01 Total Bilirubin 0.4 (0.2-1) mg/dl AST 18 (15-37) U/L ALT 15 (12-78) U/L Alkaline Phosphatase 47 (45-117) U/L Albumin 3.6 (3.4-5.0) gm/dl Urine 07/02/19 Range/Units 12:30 Urine Color Yellow Urine Appearance Clear (Clear) Urine pH 7.0 (4.5-7.5) Ur Specific Smyer 1.014 (1.000-1.030) Urine Protein Negative (Negative) Urine Glucose (UA) Negative (Negative) Diagnostic Findings CXR IMPRESSION: 1. Extensive bibasilar infiltrates and bronchial wall thickening greater on the right similar to prior exam. This could represent chronic aspiration or cicatrizing atelectasis. Underlying infection cannot be excluded. 2. Emphysema with significant bullous changes at the apices. Code Status & VTE Plan Code Status Patient is a full code with the exception of mechanical ventilation and intubation as per my discussion. VTE Prophylaxis Plan VTE Prophylaxis will be ordered: Yes Supervising Physician Co-Signing Physician Notes Attending addendum: Patient seen and examined, care coordinated with Nancy CHAUHAN This is a 83-year-old male with a history of COPD chronic CHF with diastolic dysfunction, presents with worsening shortness of breath cough Found to be hypoxic Symptom improved after nebulizer treatment IV steroids Patient will be admitted to telemetry, continue supportive care for COPD PT OT evaluation prior to discharge Please refer to further documentation by Nancy CHAUHAN for discussion of other chronic issues Bronwyn Grimes MD
[2019-07-02] MEDS ORDERED: ACETAMINOPHEN 325 MG TAB PO PRN (20:43)
[2019-07-02] MEDS ORDERED: FUROSEMIDE 40 MG in SYRINGE 0 ML IV ONE (20:43)
[2019-07-02] MEDS ORDERED: ALBUT/IPRATROP 3MG/0.5MG NEB 3 ML VIAL NEB PRN (20:58)
[2019-07-02] MEDS ORDERED: LISINOPRIL 5 MG TAB PO SCH (21:00)
[2019-07-02] MEDS: ALBUT/IPRATROP 3MG/0.5MG NEB 3 ML VIAL NEB SCH (21:06)
[2019-07-02] MEDS: METOPROLOL TARTRATE 50 MG TAB PO SCH (21:57)
[2019-07-02] MEDS: DONEPEZIL HCL 5 MG TAB PO SCH (21:58)
[2019-07-02] MEDS: ASPIRIN 81 MG ECTAB PO SCH (21:58)
[2019-07-02] MEDS: methylPREDNISolone 40 MG in SYRINGE 0 ML IV SCH (21:59)
[2019-07-02] MEDS: PRAVASTATIN SOD 40 MG TAB PO SCH (22:00)
[2019-07-02] MEDS: PIPERACILLIN/TAZOBACTAM 3.375 GM in DEXTROSE 5% 100 ML IV SCH (22:00)
[2019-07-02] MEDS: APIXABAN 5 MG TABLET PO SCH (22:46)
[2019-07-03] MEDS: PIPERACILLIN/TAZOBACTAM 3.375 GM in DEXTROSE 5% 100 ML IV SCH ×2 (04:31→12:31)
[2019-07-03] MEDS: methylPREDNISolone 40 MG in SYRINGE 0 ML IV SCH ×3 (04:31→20:20)
[2019-07-03] MEDS: LEVOTHYROXINE SODIUM 50 MCG TABLET PO SCH (05:44)
[2019-07-03] MEDS: ALBUT/IPRATROP 3MG/0.5MG NEB 3 ML VIAL NEB SCH ×4 (07:29→19:08)
[2019-07-03] MEDS ORDERED: PERFLUTREN LIPID MICROSPHERE (DEFINITY) IV ONE (08:05)
[2019-07-03] MEDS: APIXABAN 5 MG TABLET PO SCH (08:22)
[2019-07-03] MEDS: POTASSIUM CHLORIDE 10 MEQ TABCR PO SCH (08:22)
[2019-07-03] MEDS: METOPROLOL TARTRATE 50 MG TAB PO SCH ×2 (08:22→20:19)
[2019-07-03] MEDS: AMLODIPINE BESYLATE 5 MG TAB PO SCH (08:23)
[2019-07-03] MEDS ORDERED: ALLOPURINOL 300 MG TAB PO SCH (09:00)
[2019-07-03 09:28] LABS: Hematocrit (blood only) 35.6 % (42-52); Hemoglobin 11.5 g/dL (14.0-18.0); Mean Corpuscular Hemoglobin 30.6 pg (25-34); Mean Corpuscular Hgb Conc 32.3 g/dL (32-36); Mean Corpuscular Volume 94.7 fL (80-100); Mean Platelet Volume 9.5 fL (7.4-10.4); Platelet Count 174 K/uL (130-400); RDW Standard Deviation 48.3 fL (36.4-46.3); Red Blood Count 3.76 M/uL (4.7-6.1); White Blood Count 9.77 K/uL (4.8-10.8)
[2019-07-03 09:55] LABS: BUN Creatinine Ratio 17.6 (10-20); Calcium 8.3 mg/dl (8.5-10.1); Creatinine Clr Calc Pharmacy 29.7 ml/min; Est GFR (Non-African American) 31.9; Magnesium 2.3 mg/dl (1.8-2.4); Potassium 3.8 mmol/L (3.5-5.1)
--- NOTE | 2019-07-03 15:18 | Hospitalist Progress Note ---
Date of Service July 03, 2019 Assessment & Plan (1) Acute on chronic respiratory failure with hypoxia: Secondary to COPD exacerbation, Respite status improved after aggressive treatment IV steroids, continue to monitor clinically (2) Hx of pulmonary aspiration: Patient was noted to be in high aspiration risk secondary to COPD exacerbation, Speech evaluation done in the past, recommend slippery/soft diet, no evidence of aspiration noted during meals this admission Patient input from speech, no change of diet ordered except for continue prior recommendation: Slippery/soft diet, aspiration precaution with small frequent meals will alternate between liquid and solid and keeping upright for meals Patient was started on empiric antibiotic with admission with concern of possible aspiration pneumonia, chest x-ray shows chronic atelectasis no evidence of infiltrate, patient does not have any cough, no fever chills normal white count We will DC IV antibiotic (3) Acute on chronic diastolic CHF (congestive heart failure): Possible secondary to demand ischemia with hypoxia COPD exacerbation, Given 40 mg IV Lasix in the ER, Clinically improved, Echo shows hyperdynamic LV ejection fraction more than 70%, grade 1 diastolic dysfunction Echocardiogram patient appears to be intravascularly we will hold off on further diuretic treatment (4) COPD exacerbation: (5) Pulmonary nodules: -Patient had CT chest 03/2019 that demonstrated multiple, new, spiculated nodules -Close repeat CT was recommended Order for CT chest with contrast for pulmonary nodule evaluation: (6) CKD (chronic kidney disease), stage III: Acute renal failure on CKD stage III 1.63worsened to 1.91 (patient was given Lasix IV in ER) We will hold losartan, repeat BMP in a.m. Avoid contrast study NSAIDs Eliquis dose adjusted depending of renal function (7) Paroxysmal atrial fibrillation: -Rate controlled on metoprolol, will continue -Anticoagulated on Eliquis; varying renal function noted, dose adjusted to 2.5 mg twice daily (was 5 mg p.o. twice daily) (8) CAD (coronary artery disease): -Appears stable, no reports of chest pain -Continue aspirin, statin, beta-hafsa, Hold lisinopril in the setting of worsening of renal function (9) Hypertension: -BP controlled, continue amlodipine, metoprolol, lisinopril (10) DVT prophylaxis: -Anticoagulated on Eliquis CODE STATUS: DNI Disposition: Is at home independent in ADLs, PT OT evaluation requested prior to discharge home Subjective pt is sitting on chair, feels fine, denies of any cough or shortness of breath, hypoxia has resolved, on 2 L oxygen via nasal cannula, approximate baseline No fever chills No sign of aspiration noted during Physical Exam Constitutional: WD/WN, vitals as above Eyes: PERRL, conjunctivae normal, anicteric sclerae ENMT: external ear and nose normal, oropharynx normal Neck: trachea midline, no thyromegaly Respiratory: + cough Auscultation: + diminished lung sounds; no crackles and no wheezes Cardiovascular: RRR, no murmur, no edema Gastrointestinal (Abdomen): normal bowel sounds, soft, nontender, no hepatosplenomegaly Musculoskeletal: no cyanosis or clubbing, extremities motor strength 5/5 Skin: no rashes, warm and dry Neurologic: PERRL, EOMI, accommodation nl, no face palsy, no dysarthria Psychiatric: A+Ox3, euthymic affect Results & Data Vital Signs (Past 12 Hours) Vital Signs Temp Pulse Pulse Pulse Resp BP Pulse Ox 07/03/19 15:06 81 18 94 07/03/19 14:56 36.9 C 70 16 138/77 92 07/03/19 14:54 89 L 07/03/19 11:15 36.3 C L 79 20 149/78 H 94 07/03/19 11:05 71 18 91 07/03/19 07:29 63 18 93 07/03/19 07:17 36.7 C 89 20 152/87 H 95 07/03/19 07:12 86
[2019-07-03] MEDS ORDERED: PNEUMOCOCCAL POLYSACCHARIDES 25 MCG/0.5 ML VIAL/SYR IM ONE (19:15)
[2019-07-03] MEDS ORDERED: PNEUMOCOCCAL ADMINISTRATION CHARGE ONE (19:15)
[2019-07-03] MEDS: ASPIRIN 81 MG ECTAB PO SCH (20:19)
[2019-07-03] MEDS: DONEPEZIL HCL 5 MG TAB PO SCH (20:19)
[2019-07-03] MEDS: PRAVASTATIN SOD 40 MG TAB PO SCH (20:19)
[2019-07-03] MEDS: GUAIFENESIN/CODEINE 100MG/10MG 5ML UDC PO PRN (20:42)
[2019-07-04] MEDS: LEVOTHYROXINE SODIUM 50 MCG TABLET PO SCH (06:31)
[2019-07-04] MEDS: ALBUT/IPRATROP 3MG/0.5MG NEB 3 ML VIAL NEB SCH ×4 (07:34→19:02)
[2019-07-04] MEDS: AMLODIPINE BESYLATE 5 MG TAB PO SCH (09:31)
[2019-07-04] MEDS: APIXABAN 2.5 MG TAB PO SCH ×2 (09:32→20:28)
[2019-07-04] MEDS: METOPROLOL TARTRATE 50 MG TAB PO SCH ×2 (09:32→20:30)
[2019-07-04] MEDS: POTASSIUM CHLORIDE 10 MEQ TABCR PO SCH (09:32)
[2019-07-04] MEDS: ALLOPURINOL 100 MG TAB PO SCH (09:33)
[2019-07-04] MEDS: methylPREDNISolone 40 MG in SYRINGE 0 ML IV SCH ×2 (09:36→20:29)
[2019-07-04] MEDS: GUAIFENESIN/CODEINE 100MG/10MG 5ML UDC PO PRN (09:37)
--- NOTE | 2019-07-04 16:40 | CT Scan Report ---
CT SCAN OF THE CHEST WITHOUT IV CONTRAST CLINICAL HISTORY: Pulmonary nodule. Cough. Hypoxia. COMPARISON STUDY: Chest CT scans dated 03/19/2019, 06/18/2016, and 03/14/2015. TECHNIQUE: CT scan of the thorax was performed from the thoracic inlet to the upper abdomen. Images are reviewed in the axial, sagittal, and coronal planes. IV contrast was not administered for this ex amination as per the referring clinician. A dose lowering technique was utilized adhering to the wayne chunples of MODE. CT DOSE: 397.34 mGy.cm FINDINGS: Thyroid: Atrophic. Thoracic aorta: There is advanced atherosclerotic calcification of the thoracic aorta, which is marlen l in caliber and demonstrates standard 3-vessel arch anatomy. Heart: The heart is top normal in size and there is a small pericardial effusion. The aortic valve le aflets and coronary arteries are densely calcified. The pulmonary trunk is normal in caliber. Lungs and pleural spaces: Evaluation of the lung parenchyma is degraded by motion artifact. Advanced emphysematous change is again noted. There is no airspace consolidation typical for pneumonia or pleu ral effusion. Scarring/atelectasis is seen at the lung bases. A 6 cm right upper lobe pulmonary nodul e is seen on image #[id number]. This is been present dating back to 06/18/2016. No new pulmonary nodule is id entified. Minimal secretions are noted in the trachea and mainstem bronchi. Mediastinum: There is no mediastinal lymphadenopathy. Cata: Not well assessed without IV contrast. Axillae: There is no axillary lymphadenopathy. Upper abdomen: There is a tiny hiatal hernia. Clonic interposition is incidentally noted. Partially v isualized upper abdominal viscera is otherwise grossly unremarkable. Skeletal structures: The skeletal structures are osteopenic. Degenerative changes noted throughout th e thoracic spine and in the shoulders. No lytic or blastic bony lesions are seen. There are healed ri ght-sided rib fractures. IMPRESSION: 1. Advanced emphysema. 2. There is no airspace consolidation typical for pneumonia or pleural effusion. 3. A pathologically indeterminant 6 mm right upper lobe pulmonary nodule has not appreciably changed dating back to 03/14/2015. No new pulmonary lesion is identified. 4. Additional findings as above. Electronically signed by: Neville Silva M.D. 07/04/2019 4:37 PM
--- NOTE | 2019-07-04 17:48 | Hospitalist Progress Note ---
Date of Service July 04, 2019 Assessment & Plan (1) Acute on chronic respiratory failure with hypoxia: Secondary to COPD exacerbation, Respite status improved after aggressive treatment IV steroids, continue to monitor clinically (2) Hx of pulmonary aspiration: Patient was noted to be in high aspiration risk secondary to COPD exacerbation, Speech evaluation done in the past, recommend slippery/soft diet, no evidence of aspiration noted during meals this admission Patient input from speech, no change of diet ordered except for continue prior recommendation: Slippery/soft diet, aspiration precaution with small frequent meals will alternate between liquid and solid and keeping upright for meals Patient was started on empiric antibiotic with admission with concern of possible aspiration pneumonia, chest x-ray shows chronic atelectasis no evidence of infiltrate, patient does not have any cough, no fever chills normal white count Cardiac discontinued, Patient is scheduled to have CT chest for routine evaluation of not lung nodule, will be ordered (3) Acute on chronic diastolic CHF (congestive heart failure): Possible secondary to demand ischemia with hypoxia COPD exacerbation, Given 40 mg IV Lasix in the ER, Clinically improved, Echo shows hyperdynamic LV ejection fraction more than 70%, grade 1 diastolic dysfunction Echocardiogram patient appears to be intravascularly we will hold off on further diuretic treatment (4) COPD exacerbation: (5) Pulmonary nodules: -Patient had CT chest 03/2019 that demonstrated multiple, new, spiculated nodules -Close repeat CT was recommended Order for CT chest with contrast for pulmonary nodule evaluation: Follows with pulmonology Dr. Hart, pulmonology consult requested (6) CKD (chronic kidney disease), stage III: Acute renal failure on CKD stage III 1.63worsened to 1.91 (patient was given Lasix IV in ER) We will hold losartan, repeat BMP in a.m. Avoid contrast study NSAIDs PT chest noncontrast ordered to assess for lung nodule Eliquis dose adjusted depending of renal function (7) Paroxysmal atrial fibrillation: -Rate controlled on metoprolol, will continue -Anticoagulated on Eliquis; varying renal function noted, dose adjusted to 2.5 mg twice daily (was 5 mg p.o. twice daily) (8) CAD (coronary artery disease): -Appears stable, no reports of chest pain -Continue aspirin, statin, beta-hafsa, Hold lisinopril in the setting of worsening of renal function (9) Hypertension: -BP controlled, continue amlodipine, metoprolol, lisinopril (10) DVT prophylaxis: -Anticoagulated on Eliquis CODE STATUS: DNI Disposition: Is at home independent in ADLs, PT OT evaluation requested prior to discharge home Date given to patient's and [id number] present at bedside Subjective pt is sitting on chair, feels fine, denies of any cough or shortness of breath, hypoxia has resolved, on 2 L oxygen via nasal cannula, approximate baseline No fever chills No sign of aspiration noted during Physical Exam Constitutional: WD/WN, vitals as above Eyes: PERRL, conjunctivae normal, anicteric sclerae ENMT: external ear and nose normal, oropharynx normal Neck: trachea midline, no thyromegaly Respiratory: + cough Auscultation: + diminished lung sounds; no crackles and no wheezes Cardiovascular: RRR, no murmur, no edema Gastrointestinal (Abdomen): normal bowel sounds, soft, nontender, no hepatosplenomegaly Musculoskeletal: no cyanosis or clubbing, extremities motor strength 5/5 Skin: no rashes, warm and dry Neurologic: PERRL, EOMI, accommodation nl, no face palsy, no dysarthria Psychiatric: A+Ox3, euthymic affect Results & Data Vital Signs (Past 12 Hours) Vital Signs Temp Pulse Pulse Pulse Resp BP Pulse Ox 07/04/19 15:26 78 07/04/19 15:24 73 16 94 07/04/19 11:14 71 16 94 07/04/19 10:42 80 07/04/19 07:34 18 L 75 91 07/04/19 07:29 36.6 C 79 21 173/83 H 94
[2019-07-04] MEDS: ASPIRIN 81 MG ECTAB PO SCH (20:29)
[2019-07-04] MEDS: PRAVASTATIN SOD 40 MG TAB PO SCH (20:30)
[2019-07-04] MEDS: DONEPEZIL HCL 5 MG TAB PO SCH (20:30)
[2019-07-05] MEDS: LEVOTHYROXINE SODIUM 50 MCG TABLET PO SCH (06:22)
[2019-07-05] MEDS: ALBUT/IPRATROP 3MG/0.5MG NEB 3 ML VIAL NEB SCH ×4 (07:07→19:54)
[2019-07-05] MEDS: METOPROLOL TARTRATE 50 MG TAB PO SCH ×2 (07:38→20:44)
[2019-07-05] MEDS: POTASSIUM CHLORIDE 10 MEQ TABCR PO SCH (07:38)
[2019-07-05] MEDS: APIXABAN 2.5 MG TAB PO SCH ×2 (07:38→20:44)
[2019-07-05] MEDS: AMLODIPINE BESYLATE 5 MG TAB PO SCH (07:39)
[2019-07-05] MEDS: ALLOPURINOL 100 MG TAB PO SCH (07:39)
[2019-07-05] MEDS: methylPREDNISolone 40 MG in SYRINGE 0 ML IV SCH ×2 (08:12→20:44)
[2019-07-05] MEDS: GUAIFENESIN/CODEINE 100MG/10MG 5ML UDC PO PRN (08:12)
[2019-07-05 08:17] LABS: Creatinine Clr Calc Pharmacy 36.6 ml/min; Est GFR (Non-African American) 41.4
[2019-07-05] MEDS: DOXYCYCLINE HYCLATE 100 MG CAP PO SCH ×2 (12:59→20:44)
--- NOTE | 2019-07-05 20:28 | Hospitalist Progress Note ---
Date of Service July 05, 2019 Assessment & Plan (1) Acute on chronic respiratory failure with hypoxia: Due to COPD exacerbation: Underlying advanced emphysema/COPD Presented with severe shortness of breath dyspnea on exertion, hypoxia Symptom improved with hour-long nebulizer treatment Patient is continued treatment with IV Solu-Medrol, [id number] neb, Has productive sputum with white mucus production Chest x-ray 07/02/2019: Impression 1. Extensive bibasilar infiltrate and bronchial wall thickening greater on the right similar to prior exam. This could represent chronic aspiration or atelectasis. Underlying infection cannot be excluded 2. Emphysema with significant bullous changes of the episodes Sputum Gram stain and culture: Normal marv Respiratory status continues to improve with treatment for COPD Patient is treated with doxycycline changed to p.o. Will need a repeat chest x-ray to assess improvement/resolution of basilar atelectasis versus infiltrate (2) Hx of pulmonary aspiration: Patient was noted to be in high aspiration risk secondary to COPD exacerbation, Speech evaluation done in the past, recommend slippery/soft diet, no evidence of aspiration noted during meals this admission Chest x-ray as outlined above: Appreciate input from speech, no change of diet ordered except for continue prior recommendation: Slippery/soft diet, aspiration precaution with small frequent meals will alternate between liquid and solid and keeping upright for meals Patient was started on empiric antibiotic with admission with concern of possible aspiration pneumonia, chest x-ray shows chronic atelectasis no evidence of infiltrate, patient does not have any cough, no fever chills normal white count Patient follows with pulmonology team Dr. Hart/Fidencio Carmichael PA-C pulmonology consult requested Patient gets yearly CT chest for evaluation of thyroid nodule, CT chest noncontrast ordered secondary to CKD Report shows change on the chronic 6 mm right upper lobe pulmonary nodule CT chest noncontrast: 1. Advanced emphysema. 2. There is no airspace consolidation typical for pneumonia or pleural effusion. 3. A pathologically indeterminate 6 mm right upper lobe pulmonary nodule that has not appreciably changed dating back 03/14/2015. No new pulmonary lesions identified (3) Acute on chronic diastolic CHF (congestive heart failure): Possible secondary to demand ischemia with hypoxia COPD exacerbation, Given 40 mg IV Lasix in the ER, Clinically improved, Echo shows hyperdynamic LV ejection fraction more than 70%, grade 1 diastolic dysfunction At present appears to be euvolemic, No further diuresis indicated (4) COPD exacerbation: Management outlined as above (5) Pulmonary nodules: -Patient had CT chest 03/2019 that demonstrated multiple, new, spiculated nodules -Repeat CT chest as outlined above Follows with pulmonology Dr. Hart, pulmonology consult requested (6) CKD (chronic kidney disease), stage III: Acute renal failure on CKD stage III 1.63worsened to 1.91 (patient was given Lasix IV in ER) We will hold losartan, Creatinine improved 1.911.54 Continue to monitor BMP Avoid contrast study NSAIDs PT chest noncontrast ordered to assess for lung nodule: Report as outlined above Eliquis dose adjusted depending of renal function (7) Paroxysmal atrial fibrillation: -Rate controlled on metoprolol, will continue -Anticoagulated on Eliquis; varying renal function noted, dose adjusted to 2.5 mg twice daily (was 5 mg p.o. twice daily) (8) CAD (coronary artery disease): -Appears stable, no reports of chest pain -Continue aspirin, statin, beta-hafsa, Hold lisinopril in the setting of worsening of renal function Patient remains in stable volume status, lisinopril should be resumed prior to discharge if renal function returns back to baseline (9) Hypertension: -BP controlled, continue amlodipine, metoprolol, Lisinopril will be resumed when renal function improved back to baseline (10) DVT prophylaxis: -Anticoagulated on Eliquis CODE STATUS: DNI Disposition: Patient lives at home independent in ADLs, PT OT evaluation appreciated: Recommends skilled rehab Social service following for discharge planning Subjective Continues to have cough, wheeze, shortness of breath, dyspnea on exertion resolved, appears to be on baseline respiratory status with 2.5 L by nasal cannula (on home O2) No fever or chills, No aspiration or cough noted during meals, Comfortable Still having generalized weakness, fatigue with ambulation and activity, Appreciate input from physical therapy, recommends short-term rehab Review of Systems Review of Systems: All systems reviewed & are unremarkable except as noted in HPI & below Physical Exam Constitutional: WD/WN, vitals as above Eyes: PERRL, conjunctivae normal, anicteric sclerae ENMT: external ear and nose normal, oropharynx normal Neck: trachea midline, no thyromegaly Respiratory: + cough Auscultation: + diminished lung sounds; no crackles and no wheezes Cardiovascular: RRR, no murmur, no edema Gastrointestinal (Abdomen): normal bowel sounds, soft, nontender, no hepatosplenomegaly Musculoskeletal: no cyanosis or clubbing, extremities motor strength 5/5 Skin: no rashes, warm and dry Neurologic: PERRL, EOMI, accommodation nl, no face palsy, no dysarthria Psychiatric: A+Ox3, euthymic affect Results & Data Vital Signs (Past 12 Hours) Vital Signs Temp Pulse Resp BP BP Pulse Ox Pulse Ox 07/05/19 19:57 82 18 96 07/05/19 19:36 36.6 C 88 20 110/68 92 07/05/19 15:50 75 18 95 07/05/19 15:00 36.5 C 74 20 96 07/05/19 12:09 91 07/05/19 12:07 36.5 C 74 18 136/74 96 07/05/19 11:11 69 18 95 Pulse Ox Pulse Ox 07/05/19 19:57 07/05/19 19:36 07/05/19 15:50 07/05/19 15:00 07/05/19 12:09 93 82 L 07/05/19 12:07 07/05/19 11:11
[2019-07-05] MEDS: DONEPEZIL HCL 5 MG TAB PO SCH (20:43)
[2019-07-05] MEDS: ASPIRIN 81 MG ECTAB PO SCH (20:43)
[2019-07-05] MEDS: PRAVASTATIN SOD 40 MG TAB PO SCH (20:44)
[2019-07-06] MEDS: LEVOTHYROXINE SODIUM 50 MCG TABLET PO SCH (06:04)
[2019-07-06] MEDS: ALBUT/IPRATROP 3MG/0.5MG NEB 3 ML VIAL NEB SCH ×4 (07:13→18:55)
[2019-07-06] MEDS: POTASSIUM CHLORIDE 10 MEQ TABCR PO SCH (07:45)
[2019-07-06] MEDS: AMLODIPINE BESYLATE 5 MG TAB PO SCH (07:45)
[2019-07-06] MEDS: APIXABAN 2.5 MG TAB PO SCH ×2 (07:45→20:31)
[2019-07-06] MEDS: methylPREDNISolone 40 MG in SYRINGE 0 ML IV SCH (07:45)
[2019-07-06] MEDS: DOXYCYCLINE HYCLATE 100 MG CAP PO SCH ×2 (07:46→20:30)
[2019-07-06] MEDS: METOPROLOL TARTRATE 50 MG TAB PO SCH ×2 (07:46→20:30)
[2019-07-06] MEDS: ALLOPURINOL 100 MG TAB PO SCH (07:46)
[2019-07-06 08:21] LABS: Est GFR (African American) 51.2; Est GFR (Non-African American) 44.2
--- NOTE | 2019-07-06 11:44 | Pulmonary Consultation ---
Date of Consultation July 06, 2019 Assessment & Plan (1) Acute on chronic respiratory failure with hypoxia and hypercapnia: The patient is clinically improving but slowly. He does have very severe disease. I agree with his current treatment which includes DuoNeb treatments 4 times daily, doxycycline 100 mg twice daily, prednisone 40 mg daily, and his usual other medicines. Suggest rechecking blood sugars if this has not been done in light of the elevation seen earlier this hospital stay. Advise physical therapy to work with the patient to increase strength and endurance. Would taper the prednisone very slowly. He will need to follow-up with Fidencio Carmichael PA-C soon after discharge. He usually sees him in the [place] office. (2) COPD exacerbation: (3) Pulmonary emphysema: (4) Pulmonary hypertension: (5) Solitary lung nodule: No change person 4 years. This does not need further follow-up. History of Present Illness Attending Physician: Bronwyn Griems MD History of Present Illness Pulmonary consultation is requested regarding severe COPD with increasing shortness of breath and cough. The patient is an 83-year-old male who is had severe emphysema and COPD for many years. He believes he has had approximately 6 hospitalizations for respiratory problems. He had been hospitalized in November 2018 with an exacerbation of COPD. He was again admitted in February 2019 with an exacerbation and with hemoptysis. He has not had any hemoptysis since then. The patient states that for about a month his breathing has been getting gradually worse. He has been short of breath at rest. He has been unable to do any significant exertion. He has had a severe cough. He brings up white scant sputum. He denies chills fevers or sweats. The patient lives alone but he has 3 children who live in fairly close proximity. He states he does not get out a whole lot. He apparently still drives at times. It was difficult to get a history from the patient has to how far he could walk without difficulty. The patient has been having some swelling of the lower extremities recently. It has been a little worse on the left than on the he is not experiencing any pain in the legs. He states his appetite is good. He denies heartburn or indigestion. Denies abdominal pains or bowel problems. He admits to having increased urinary frequency. The patient does have some stiffness of his hands and some joint pains. He does complain of some visual problems especially first thing in the morning. He has not seen an eye doctor for a long time. At home his breathing medications include pro-air HFA as needed, Combivent Respimat as needed, Breo Ellipta 100/25 1 puff daily, nebs with DuoNeb's as needed, and he is not on any prednisone on a regular basis but only at times of exacerbations. The patient has numerous medical problems otherwise including diastolic CHF, hypertension, coronary artery disease, moderate aortic stenosis, prior CVA, chronic renal insufficiency, anemia, MRSA, pulmonary hypertension, squamous cell cancer of the lip, and possible chronic aspiration. The patient smoked from about age [age]. He was a little vague as to how much he actually did smoke. He also smoked a pipe apparently after quitting cigarettes. I do not believe he smokes at all for many years. 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 Allergies Allergy/AdvReac Type Severity Reaction Status Date / Time moxifloxacin AdvReac Mild dizziness Verified 07/02/19 12:31 Home Medications Home Medications Medication Instructions Recorded Confirmed Type allopurinol 300 mg PO QAM 12/05/18 07/02/19 History amlodipine 5 mg PO QAM 12/05/18 07/02/19 History apixaban 5 mg PO BID 12/05/18 07/02/19 History aspirin 81 mg PO HS 12/05/18 07/02/19 History donepezil 5 mg PO HS 12/05/18 07/02/19 History furosemide 20 mg PO QAM 12/05/18 07/02/19 History furosemide 40 mg PO QAM 12/05/18 07/02/19 History ipratropium-albuterol 3 ml INHALATION Q6H PRN 12/05/18 07/02/19 History levothyroxine 50 mcg PO QAM 12/05/18 07/02/19 History lisinopril 5 mg PO HS 12/05/18 07/02/19 History pravastatin 40 mg PO HS 12/05/18 07/02/19 History Combivent Respimat 2 puff INHALATION Q6H PRN 03/19/19 07/02/19 History albuterol sulfate [ProAir HFA] 2 puff INHALATION QID PRN 03/19/19 07/02/19 History metoprolol tartrate 50 mg PO BID 03/19/19 07/02/19 History potassium chloride 10 meq PO QAM 03/19/19 07/02/19 History fluticasone furoate-vilanterol 1 inh INHALATION QAM 07/02/19 07/02/19 History [Breo Ellipta] Patient History Medical History CKD (chronic kidney disease), stage III (Chronic) Paroxysmal atrial fibrillation (Chronic) CAD (coronary artery disease) (Chronic) "s/p stent" Chronic diastolic heart failure (Chronic) Hx MRSA infection (Chronic) "per records" Hypertension (Chronic) Dependence on continuous supplemental oxygen (Chronic) Pulmonary hypertension (Chronic) "Moderate on echo 09/2014" Hx of pulmonary aspiration (Chronic) Benign enlargement of prostate (Chronic) Mixed hyperlipidemia (Chronic) AAA (abdominal aortic aneurysm) without rupture (Chronic) Pulmonary emphysema (Chronic) History of CVA (cerebrovascular accident) without residual deficits (Resolved) Gout (Chronic) H/O seborrheic keratosis (Chronic) Squamous cell carcinoma of lip (Resolved) Surgical History S/P knee replacement (Chronic) Hx of squamous cell carcinoma excision (Chronic) "upper lip" S/P coronary artery stent placement (Chronic) "2005 and 2007" S/P hernia repair (Chronic) S/P AAA repair (Chronic) Family History Other No significant family history Social History Preferred Language: [place] Communication Ability: Effective 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 10 systems reviewed. Physical Exam Physical Exam: The patient is a pleasant 83-year-old male who was cooperative alert and oriented. He was in no distress at rest. However when I came into the room he was in the restroom and just coming out. He was utilizing a walker. The exertion from the restroom to his bed gave increasing shortness of breath and increased cough. Temperature is 36.6. He said no fevers since admission. The patient's pupils are somewhat miotic. They do react. Nares were clear. Mouth exam showed no erythema or exudate. No lymph nodes palpable. Cardiac rate 74/min. Rhythm regular. Blood pressure 153/64. The chest showed an increased AP diameter. Mild kyphosis noted. Respiratory rate 20 breaths/min. He was using accessory muscles as he was walking from the bathroom to his chair. There is marked prolongation to the expiratory phase of respiration. Expiratory wheezes could be heard bilaterally. Saturation 90% on 3 L nasal cannula. Abdomen is soft. Bowel sounds were normal. There was no tenderness to palpation, masses, or organomegaly. Extremities revealed +2 edema of the left ankle and lower tibial region. On the right side there was +1 edema of the right ankle and lower tibial region. There was no cyanosis or clubbing. Results & Data Vital Signs (Past 12 Hours) Vital Signs Temp Pulse Resp BP Pulse Ox 07/06/19 07:53 36.6 C 74 20 153/64 H 90 07/06/19 07:13 74 20 90 07/06/19 03:51 36.5 C 73 18 148/89 H 91 Laboratory Results CBC done on 07/03/2019 showed a white count of 9.77. Hemoglobin 11.5. Platelets 174,000. Coags were normal. Electrolytes on the showed sodium 138 potassium 3.8 chloride 96 and bicarb 34. On July 02 bicarb had actually been 40. He appears to have a degree of CO2 retention. Liver functions were normal. Blood sugar on 07/03/2019 was 191. I do not believe it has been checked since then. [place] was negative. Diagnostic Findings Chest x-ray on admission showed emphysema with severe bullous changes of the apices. Extensive bibasilar infiltrates were reported on the admission chest x- ray. CT of the chest was done on 07/04/2019. This showed advanced emphysema but no evidence of airspace consolidation to suggest pneumonia or effusion. There was a 6 mm right upper lobe nodule that has not changed dating back to 03/14/2015. Review of office records shows that in 2016 when the patient last had pulmonary function testing, his FEV1 postbronchodilator was only 28% predicted. There was a severe reduction in the FEV1/FVC ratio. These results would suggest very severe airflow obstruction. Echocardiogram done during this hospital stay reported hyperdynamic LV systolic function with ejection fraction greater than 70%. No wall motion abnormalities noted. Grade 1 diastolic dysfunction noted. The valvular structures were poorly visualized. PG Care Time/CCT Total # of Minutes Spent Total Time Spent with Patient: Total time spent is greater than 50% in coordination of care (as documented) at patient's floor/unit and/or counseling patient:
--- NOTE | 2019-07-06 11:59 | Hospitalist Progress Note ---
Date of Service July 06, 2019 Assessment & Plan (1) Acute on chronic respiratory failure with hypoxia: Presented with severe shortness of breath dyspnea on exertion, hypoxia Due to COPD exacerbation: Underlying advanced emphysema/COPD Symptom improved with hour-long nebulizer treatment Patient is continued treatment with IV Solu-Medrol, [id number] neb, Symptom improved, transitioned to oral p.o. prednisone today, pulmonology consulted, appreciate input, patient appears to be have baseline advanced COPD, will need very slow taper of prednisone Patient is started on p.o. prednisone 40 mg daily, will taper down to 10 mg/week, patient will be seen by Dr. Hart's office after discharge from rehab, after discussion regarding chronic prednisone recommendation Patient had productive sputum, which has improved Chest x-ray 07/02/2019: Impression 1. Extensive bibasilar infiltrate and bronchial wall thickening greater on the right similar to prior exam. This could represent chronic aspiration or atelectasis. Underlying infection cannot be excluded 2. Emphysema with significant bullous changes of the episodes Sputum Gram stain and culture: Normal marv Respiratory status continues to improve with treatment for COPD Patient is treated with doxycycline changed to p.o. Ordered for repeat chest x-ray in a.m. to assess improvement/resolution of basilar atelectasis versus infiltrate (2) Hx of pulmonary aspiration: Patient was noted to be in high aspiration risk secondary to COPD exacerbation, Speech evaluation done in the past, recommend slippery/soft diet, no evidence of aspiration noted during meals this admission Chest x-ray as outlined above: Appreciate input from speech, no change of diet ordered except for continue prior recommendation: Slippery/soft diet, aspiration precaution with small frequent meals will alternate between liquid and solid and keeping upright for meals Patient was started on empiric antibiotic with admission with concern of possible aspiration pneumonia, chest x-ray shows chronic atelectasis no evidence of infiltrate, patient does not have any cough, no fever chills normal white count Patient follows with pulmonology team Dr. Hart/Fidencio Carmichael PA-C pulmonology consult requested Appreciate input from Dr. melvin, Recommend continue current management patient will need very slow taper of prednisone, outpatient follow-up with Dr. Hart after discharge from rehab Patient gets yearly CT chest for evaluation of thyroid nodule, CT chest noncontrast ordered secondary to CKD Report shows change on the chronic 6 mm right upper lobe pulmonary nodule CT chest noncontrast: 1. Advanced emphysema. 2. There is no airspace consolidation typical for pneumonia or pleural effusion. 3. A pathologically indeterminate 6 mm right upper lobe pulmonary nodule that has not appreciably changed dating back 03/14/2015. No new pulmonary lesions identified Patient is updated regarding CT chest finding (3) Acute on chronic diastolic CHF (congestive heart failure): Possible secondary to demand ischemia with hypoxia COPD exacerbation, Given 40 mg IV Lasix in the ER, Clinically improved, Echo shows hyperdynamic LV ejection fraction more than 70%, grade 1 diastolic dysfunction At present appears to be euvolemic, No further diuresis indicated (4) COPD exacerbation: Management outlined as above (5) Pulmonary nodules: -Patient had CT chest 03/2019 that demonstrated multiple, new, spiculated nodules -Repeat CT chest as outlined above Follows with pulmonology Dr. Hart, pulmonology consult requested appreciate input (6) CKD (chronic kidney disease), stage III: Acute renal failure on CKD stage III 1.63worsened to 1.91 (patient was given Lasix IV in ER) We will hold losartan, Creatinine improved 1.911.54 creatinine continues to improve 1.4 today Continue to monitor BMP Avoid contrast study NSAIDs PT chest noncontrast ordered to assess for lung nodule: Report as outlined above Eliquis dose adjusted depending of renal function (7) Paroxysmal atrial fibrillation: -Rate controlled on metoprolol, will continue -Anticoagulated on Eliquis; varying renal function noted, dose adjusted to 2.5 mg twice daily (was 5 mg p.o. twice daily) (8) CAD (coronary artery disease): -Appears stable, no reports of chest pain -Continue aspirin, statin, beta-hafsa, Hold lisinopril in the setting of worsening of renal function Patient remains in stable volume status, lisinopril should be resumed prior to discharge if renal function returns back to baseline (9) Hypertension: -BP controlled, continue amlodipine, metoprolol, Lisinopril will be resumed when renal function improved back to baseline (10) DVT prophylaxis: -Anticoagulated on Eliquis CODE STATUS: DNI Disposition: Patient lives at home independent in ADLs, PT OT evaluation appreciated: Recommends skilled rehab Patient was initially reluctant, says after discussion with her daughter he is agreeable for short-term rehab Social service updated Patient can be transferred to skilled rehab in next 24-48 hours if insurance authorization for SNF is done Subjective Cough has much improved today has minimal wheeze no productive sputum, Patient is willing to go to rehab after discharge from hospital No fever or chills, no weakness or paresthesia Respite status appears to be baseline Physical Exam Constitutional: WD/WN, vitals as above Eyes: PERRL, conjunctivae normal, anicteric sclerae ENMT: external ear and nose normal, oropharynx normal Neck: trachea midline, no thyromegaly Respiratory: + cough Auscultation: + diminished lung sounds; no crackles and no wheezes Cardiovascular: RRR, no murmur, no edema Gastrointestinal (Abdomen): normal bowel sounds, soft, nontender, no h epatosplenomegaly Musculoskeletal: no cyanosis or clubbing, extremities motor strength 5/5 Skin: no rashes, warm and dry Neurologic: PERRL, EOMI, accommodation nl, no face palsy, no dysarthria Psychiatric: A+Ox3, euthymic affect Results & Data Vital Signs (Past 12 Hours) Vital Signs Temp Pulse Resp BP Pulse Ox 07/06/19 11:30 77 18 92 07/06/19 07:53 36.6 C 74 20 153/64 H 90 07/06/19 07:13 74 20 90 07/06/19 03:51 36.5 C 73 18 148/89 H 91
--- NOTE | 2019-07-06 15:31 | Hospitalist Progress Note ---
Date of Service July 06, 2019 Subjective Attending addendum: Patient is willing to go to rehab Spoke with patient's daughter Susanna [phone], Agreeable for rehab referral, patient was previously at [facility], also okay to referral to [facility], both of them will be with in the distance for the family to commute Would like to get a call from case repairer /hospitalist tomorrow to update regarding discharge planning if patient is approved for SNF , family is planning to provide transport Dr Sears will follow the pt tomorrow will update him Bronwyn Grimes MD Results & Data Vital Signs (Past 12 Hours) Vital Signs Temp Pulse Resp BP Pulse Ox 07/06/19 15:12 78 18 95 07/06/19 11:30 77 18 92 07/06/19 07:53 36.6 C 74 20 153/64 H 90 07/06/19 07:13 74 20 90 07/06/19 03:51 36.5 C 73 18 148/89 H 91
[2019-07-06] MEDS: DONEPEZIL HCL 5 MG TAB PO SCH (20:30)
[2019-07-06] MEDS: ASPIRIN 81 MG ECTAB PO SCH (20:30)
[2019-07-06] MEDS: PRAVASTATIN SOD 40 MG TAB PO SCH (20:30)
[2019-07-07] MEDS: LEVOTHYROXINE SODIUM 50 MCG TABLET PO SCH (05:53)
--- NOTE | 2019-07-07 07:07 | XRay Report ---
XR chest 1V portable CLINICAL HISTORY: COPD exacerbation COMPARISON STUDY: Chest radiograph July 02, 2019. Chest CT July 04, 2019. FINDINGS: Severe emphysema is noted. Blunting of left costophrenic angle is chronic. Bibasilar opacit ies favor atelectasis. There is no evidence for pulmonary edema. Cardiomediastinal silhouette is stab le. There is no evidence for pneumomediastinum. The appearance of the chest is unchanged. IMPRESSION: No change in appearance of the chest. Severe emphysema with bibasilar opacities that favo r atelectasis. Electronically signed by: Jose Donaldson M.D. 07/07/2019 7:06 AM
[2019-07-07] MEDS: ALBUT/IPRATROP 3MG/0.5MG NEB 3 ML VIAL NEB SCH ×3 (07:14→15:35)
[2019-07-07] MEDS: AMLODIPINE BESYLATE 5 MG TAB PO SCH (08:12)
[2019-07-07] MEDS: METOPROLOL TARTRATE 50 MG TAB PO SCH (08:12)
[2019-07-07] MEDS: DOXYCYCLINE HYCLATE 100 MG CAP PO SCH (08:12)
[2019-07-07] MEDS: ALLOPURINOL 100 MG TAB PO SCH (08:12)
[2019-07-07] MEDS: APIXABAN 2.5 MG TAB PO SCH (08:13)
[2019-07-07] MEDS: POTASSIUM CHLORIDE 10 MEQ TABCR PO SCH (08:13)
[2019-07-07 08:38] LABS: BUN Creatinine Ratio 26.6 (10-20); Calcium 8.3 mg/dl (8.5-10.1); Creatinine Clr Calc Pharmacy 40.1 ml/min; Est GFR (African American) 52.9; Est GFR (Non-African American) 45.7; Potassium 4.3 mmol/L (3.5-5.1)
[2019-07-07] MEDS ORDERED: predniSONE 20 MG TAB PO SCH (09:00)
--- NOTE | 2019-07-07 14:19 | Hospitalist Progress Note ---
Date of Service July 07, 2019 Assessment & Plan (1) Acute on chronic respiratory failure with hypoxia: Secondary to COPD exacerbation H/O advanced emphysema/COPD, Chronic Oxygen dependency --CT Chest:Advanced emphysema. There is no airspace consolidation typical for pneumonia or pleural effusion. A pathologically indeterminant 6 mm right upper lobe pulmonary nodule has not appreciably changed dating back to 03/14/2015. No new pulmonary lesion is identified. Additional findings as above. --Sputum Gram stain and culture: Normal marv --Continue doxycycline, prednisone, nebs Appreciate pulmonology input Needs to follow-up with pulmonology upon discharge Needs slow taper of prednisone Continue oxygen supplementation as needed (2) Hx of pulmonary aspiration: Patient is at high aspiration risk secondary to COPD exacerbation Speech evaluation done Continue Slippery/soft diet Aspiration precaution with small frequent meals will alternate between liquid and solid and keeping upright for meals (3) Acute on chronic diastolic CHF (congestive heart failure): Possible secondary to demand ischemia with hypoxia COPD exacerbation, Given 40 mg IV Lasix in the ER Clinically improved Echo shows hyperdynamic LV ejection fraction more than 70%, grade 1 diastolic dysfunction Currently Euvolemic No plan for further diuresis (4) COPD exacerbation: Management outlined as above (5) Pulmonary nodules: Patient had CT chest 03/2019 that demonstrated multiple, new, spiculated nodules Repeat CT chest as above Follow up with Pulmonology as outpatient (6) CKD (chronic kidney disease), stage III: Acute renal failure on CKD stage III Cr back to baseline Lisinopril held Monitor renal function (7) Paroxysmal atrial fibrillation: Rate controlled Continue metoprolol Anticoagulated on Eliquis; varying renal function noted, dose adjusted to 2.5 mg twice daily also given age > 80 Yrs (was 5 mg p.o. twice daily) (8) CAD (coronary artery disease): stable Denies chest pain Continue aspirin, statin, beta-hafsa, Resume Lisinopril as able (9) Hypertension: Stable continue amlodipine, metoprolol Resume lisinopril as able (10) DVT prophylaxis: On Eliquis CODE STATUS: DNI Disposition: SNF Subjective Patient is seen and examined at bedside Reports intermittent cough Also has shortness of breath on exertion Denies any chest pain, dizziness, nausea, abdominal pain Symptomatically feels improved Plan to be discharged to snf facility today Review of Systems Review of Systems: All systems reviewed & are unremarkable except as noted in HPI & below Physical Exam Physical Exam: Physical Exam: Vitals signs as noted above General Appearance: Chronically appearing, no apparent distress Head: normocephalic, Atraumatic Eyes: normal inspection, EOMI Neck: supple, Trachea midline Respiratory/Chest: Decreased breath sounds, scattered wheezes Cardiovascular: S1, S2, No murmur Abdomen/GI:Soft, Non tender, Bowel sounds present Extremities/Musculoskelatal:normal inspection, 1-2+ B/L LE edema Neurologic/Psych:AAOX3, grossly no focal neurological deficits Skin: normal color, warm Results & Data Vital Signs (Past 12 Hours) Vital Signs Temp Pulse Pulse Resp BP Pulse Ox 07/07/19 11:19 65 18 92 07/07/19 08:10 36.4 C L 69 20 139/76 94 07/07/19 07:15 66 18 93 Laboratory Results [facility] 07/07/19 07:03 Sodium 141 Potassium 4.3 Chloride 105 Carbon Dioxide 32 BUN 38 H Creatinine 1.42 H Glucose 82 Calcium 8.3 L
--- NOTE | 2019-07-07 14:53 | Discharge Summary ---
Date of Service July 07, 2019 Admission HPI Per Admitting Provider 83-year-old male who presents the ED with shortness of breath and cough. Patient reports he has been having increasing shortness of breath over the past 1 month. He also has had a cough productive for white sputum. Symptoms have acutely worsened over the past few days. He also has noted increasing lower extremity edema. He started wearing compression stockings yesterday. Patient denies fevers and chills. No lightheadedness, dizziness, diaphoresis, syncopal events. He denies chest pain and palpitations. No abdominal pain, nausea, vomiting, diarrhea. He denies any urinary symptoms. In the ED, patient desaturated to 80% on his chronic 3 L of oxygen. Oxygen was increased to 4 L and oxygenation improved. CXR shows extensive bibasilar infiltrates however similar to prior exam. Labs demonstrate chronic CO2 retention, otherwise unremarkable. Patient was given IV Zosyn, IV Solu-Medrol, IV magnesium, albuterol treatment. Admission Exam Per Admitting Provider Physical Exam Constitutional: WD/WN, vitals as above ENMT: external ear and nose normal, oropharynx normal Respiratory: + cough (Harsh, nonproductive) Auscultation: + diminished lung sounds, + rhonchi (Scattered) and + wheezes (Expiratory) Cardiovascular: Rate/Rhythm: regular rate and regular rhythm Vessels: normal peripheral pulses Extremities: + edema (+2-3 pitting BLE) Gastrointestinal (Abdomen): normal bowel sounds, soft, nontender, no hepatosplenomegaly Musculoskeletal: no cyanosis or clubbing, extremities motor strength 5/5 Skin: no rashes, warm and dry Neurologic: PERRL, EOMI, accommodation nl, no face palsy, no dysarthria Psychiatric: A+Ox3, euthymic affect Principal Diagnosis Acute on chronic respiratory failure with hypoxia Acute COPD exacerbation Solitary pulmonary nodule Discharge Data Allergies Allergy/AdvReac Type Severity Reaction Status Date / Time moxifloxacin AdvReac Mild dizziness Verified 07/02/19 12:31 Consultations 07/02/19 13:44 ED Decision to Admit Stat 07/04/19 12:24 Consult Pulmonology Routine Procedures Performed CT Chest: 1. Advanced emphysema. 2. There is no airspace consolidation typical for pneumonia or pleural effusion. 3. A pathologically indeterminant 6 mm right upper lobe pulmonary nodule has not appreciably changed dating back to 03/14/2015. No new pulmonary lesion is identified. 4. Additional findings as above. Ordered Studies 07/04/19 12:24 CT chest wo con Routine Hospital Course (1) Acute on chronic respiratory failure with hypoxia: Secondary to COPD exacerbation H/O advanced emphysema/COPD, Chronic Oxygen dependency --CT Chest:Advanced emphysema. There is no airspace consolidation typical for pneumonia or pleural effusion. A pathologically indeterminant 6 mm right upper lobe pulmonary nodule has not appreciably changed dating back to 03/14/2015. No new pulmonary lesion is identified. Additional findings as above. --Sputum Gram stain and culture: Normal marv --Continue doxycycline, prednisone, nebs Appreciate pulmonology input Needs to follow-up with pulmonology upon discharge Needs slow taper of prednisone Continue oxygen supplementation as needed (2) Hx of pulmonary aspiration: Patient is at high aspiration risk secondary to COPD exacerbation Speech evaluation done Continue Slippery/soft diet Aspiration precaution with small frequent meals will alternate between liquid and solid and keeping upright for meals (3) Acute on chronic diastolic CHF (congestive heart failure): Possible secondary to demand ischemia with hypoxia COPD exacerbation, Given 40 mg IV Lasix in the ER Clinically improved Echo shows hyperdynamic LV ejection fraction more than 70%, grade 1 diastolic dysfunction Currently Euvolemic No plan for further diuresis (4) COPD exacerbation: Management outlined as above (5) Pulmonary nodules: Patient had CT chest 03/2019 that demonstrated multiple, new, spiculated nodules Repeat CT chest as above Follow up with Pulmonology as outpatient (6) CKD (chronic kidney disease), stage III: Acute renal failure on CKD stage III Cr back to baseline Lisinopril held Monitor renal function (7) Paroxysmal atrial fibrillation: Rate controlled Continue metoprolol Anticoagulated on Eliquis; varying renal function noted, dose adjusted to 2.5 mg twice daily also given age > 80 Yrs (was 5 mg p.o. twice daily) (8) CAD (coronary artery disease): stable Denies chest pain Continue aspirin, statin, beta-hafsa, Resume Lisinopril as able (9) Hypertension: Stable continue amlodipine, metoprolol Resume lisinopril as able (10) DVT prophylaxis: On Eliquis CODE STATUS: DNI Disposition: SNF Total Time Total Time Spent Total Time Spent (In Minutes): 41 minutes Total Time Includes: Examination of the Patient, Discharge Planning, Medication Reconciliation, Communication With Other Providers and Other Discharge Plan Discharge Items Patient Disposition: Transfer Correction Fac Reason For Visit: HYPOXIA, PNEUMONIA, COPD EXACERBATION Discharge Diagnosis: Acute on chronic respiratory failure with hypoxia Acute COPD exacerbation Solitary pulmonary nodule Activity: Resume your previous activity Exercise/Sports: Gradually increase as tolerated Non-emergency contact: Primary Care Provider and [employer] Call non-emergency contact if: you have any medication questions, your symptoms worsen, your pain is not controlled, your pain is worsening, your pain is unusual for you and your pain is concerning for you Follow-up/Referrals: Ochoa Kelly DO [Primary Care Provider] - Diet: Heart Healthy and Low Sodium (2gm) Diet Texture: Dental soft (bite-sized) Diet Comment: Slippery/soft diet Addtl Attending Provider Instructions: Follow-up with your primary care physician Dr. Kelly in 1 week upon discharge from rehab facility Follow-up with your lens generator Dr. Hart/Fidencio Carmichael PA-C in 2 weeks as advised Aspiration Precautions: Continue Slippery/soft diet Aspiration precaution with small frequent meals will alternate between liquid and solid and keeping upright for meals Complete antibiotic and Prednisone course as prescribed Your Eliquis dose is adjusted based on your renal function and your age: Take 2.5 mg twice a day Prednisone taper course Take prednisone 40 mg daily for 6 days, then 30 mg daily for 7 days, then 20 mg daily for 7 days, then 10 mg daily for 7 days and stop Seek immediate medical attention if your symptoms reoccur or worsen Pending Studies at Discharge: No Stand-Alone Forms: My [facility] Skilled Items Patient informed of condition?: Yes DNR: No Discharge Level of Care: Skilled Communicable Disease: No Discharge Prognosis: Stable Lines: None Urinary Catheter: No Medications and DC Order Prescriptions: New doxycycline hyclate 100 mg Capsule 100 mg PO BID 5 Days Qty: 10 RF: 0 Eliquis 2.5 mg Tablet 2.5 mg PO BID 30 Days Qty: 60 RF: 0 prednisone 10 mg tablet 10 mg PO UD Qty: 66 RF: 0 Continued furosemide 40 mg tablet 40 mg PO QAM RF: 0 ipratropium-albuterol 0.5 mg-3 mg(2.5 mg base)/3 mL Solution For Nebulization 3 ml INHALATION Q6H PRN (Reason: Shortness Of Breath Or Wheezing) RF: 0 donepezil 5 mg tablet 5 mg PO HS RF: 0 pravastatin 40 mg tablet 40 mg PO HS RF: 0 amlodipine 5 mg tablet 5 mg PO QAM RF: 0 aspirin 81 mg Tablet,Delayed Release (Dr/Ec) 81 mg PO HS RF: 0 levothyroxine 50 mcg tablet 50 mcg PO QAM RF: 0 allopurinol 300 mg tablet 300 mg PO QAM RF: 0 lisinopril 5 mg tablet 5 mg PO HS RF: 0 furosemide 20 mg tablet 20 mg PO QAM RF: 0 potassium chloride 10 mEq tablet,ER particles/crystals 10 meq PO QAM RF: 0 metoprolol tartrate 50 mg tablet 50 mg PO BID RF: 0 Combivent Respimat 20-100 mcg/actuation mist 2 puff inhalation Q6H PRN (Reason: Shortness Of Breath Or Wheezing) RF: 0 albuterol sulfate [ProAir HFA] 90 mcg/actuation Hfa Aerosol Inhaler 2 puff INHALATION QID PRN (Reason: Shortness Of Breath Or Wheezing) RF: 0 Breo Ellipta 100-25 mcg/dose Blister With Device 1 inh INHALATION QAM RF: 0 Discontinued apixaban 5 mg tablet 5 mg PO BID RF: 0 Discharge Orders: Discharge Order (Routine); Ordered 07/07/19 Ordered By: Kade Sears Admission Data Admit Date/Time: 07/02/19 14:45 Attending Provider: Kade Sears Admit Provider: Bronwyn Grimes Primary Care Provider: Ochoa Kelly Other Providers: Bronwyn Grimes ; Jonny Hart Other Interventions: Discharge Summary Assessment (RN) Last Done: 07/07/19 14:54 DC Date/Time DO NOT enter until pt leaves facility: 07/07/19 16:03
== END 2019-07-07 16:03 | DRG 189 ==
LOC: ED 10:53 → 2W 14:45 → SUATTDRO 14:45 → 2W 19:55

== ENCOUNTER 2019-09-17 00:48 | Inpatient (IN) ==
[2019-09-17] MEDS ORDERED: ALBUT/IPRATROP 3MG/0.5MG NEB 3 ML VIAL INH STA (01:15)
[2019-09-17 01:39] LABS: Eosinophils # (auto) 0.01 K/uL (0-0.5); Eosinophils % (auto) 0.2 %; Hematocrit (blood only) 36.2 % (42-52); Hemoglobin 11.4 g/dL (14.0-18.0); Immature Granulocytes # (auto) 0.02 K/uL (0.00-0.02); Immature Granulocytes % (auto) 0.4 %; Lymphocytes % (auto) 10.8 %; Mean Corpuscular Hemoglobin 30.2 pg (25-34); Mean Corpuscular Hgb Conc 31.5 g/dL (32-36); Monocytes # (auto) 0.33 K/uL (0.11-0.59); Monocytes % (auto) 5.9 %; Neutrophils # (auto) 4.62 K/uL (1.4-6.5); Neutrophils % (auto) 82.7 %; Platelet Count 189 K/uL (130-400); RDW Coefficient of Variation 14.6 % (11.5-14.5); RDW Standard Deviation 51.2 fL (36.4-46.3); Red Blood Count 3.77 M/uL (4.7-6.1); White Blood Count 5.58 K/uL (4.8-10.8)
[2019-09-17 01:57] LABS: Albumin Level 3.2 gm/dl (3.4-5.0); BUN Creatinine Ratio 15.2 (10-20); Calcium 8.9 mg/dl (8.5-10.1); Est GFR (African American) 50.8; Est GFR (Non-African American) 43.9; Potassium 3.6 mmol/L (3.5-5.1)
[2019-09-17 02:02] LABS: Albumin Globulin Ratio 0.9 (0.9-2); Bilirubin,Total 0.4 mg/dl (0.2-1); Globulin 3.4 gm/dl (2.5-4.0); Total Protein 6.6 gm/dl (6.4-8.2); Troponin I 0.023 ng/ml (0-0.045)
[2019-09-17] MEDS ORDERED: methylPREDNISolone 40 MG in SYRINGE 0 ML IV STA (03:40)
--- NOTE | 2019-09-17 04:17 | Emergency Department Note ---
Entered by Leticia Zapata acting as a scribe for Sachi Walls DO History of Present Illness General Chief complaint: Respiratory Problems Stated complaint: HARD TO BREATHE Time Seen by Provider: 09/17/19 00:56 Source: patient and family History of Present Illness Onset (ago): hour(s) (several) Location: chest Pain Consistency: + other (worsening) Quality: + other (shortness of breath) Associated symptoms: + denies other symptoms (changes to urine or stools), + cough (with blood), + nausea/vomiting (positive nausea, negative vomiting) and + other (left rib pain) The patient is an 84 year old male who presents to the Emergency Room with complaints of worsening shortness of breath beginning several hours ago. The patient reports a cough with blood as well as nausea. He denies vomiting, and changes to his urine or stools. He notes intermittent left rib pain that has been occurring for a while. The patient states he is currently on 3L of oxygen at home. The patient he was here in the hospital 2 months ago for pneumonia. The patient's family member reports he was in the [facility] 2 weeks ago for double pneumonia. He states the patient was seen three days ago by Fidencio Carmichael and was placed on Levaquin daily, and a prednisone taper. Home Medications Home Medications Medication Instructions Recorded Confirmed Type allopurinol 300 mg PO QAM 12/05/18 09/17/19 History amlodipine 5 mg PO QAM 12/05/18 09/17/19 History aspirin 81 mg PO HS 12/05/18 09/17/19 History donepezil 5 mg PO HS 12/05/18 09/17/19 History levothyroxine 50 mcg PO QAM 12/05/18 09/17/19 History lisinopril 5 mg PO HS 12/05/18 09/17/19 History pravastatin 40 mg PO HS 12/05/18 09/17/19 History metoprolol tartrate 50 mg PO BID 03/19/19 09/17/19 History potassium chloride 10 meq PO QAM 03/19/19 09/17/19 History Oxygen Home #1 ea 07/15/19 09/14/19 History budesonide 0.5 mg/2 mL suspension 2 ml INH BID 09/14/19 09/17/19 History for nebulization levofloxacin 500 mg tablet 500 mg PO DAILY #7 tab 09/14/19 09/17/19 Rx prednisone 10 mg tablet See Rx Instructions PO DAILY #20 09/14/19 09/17/19 Rx tab albuterol sulfate 2.5 mg INHALATION TID 09/17/19 09/17/19 History albuterol sulfate [ProAir 2 puffs INH Q6H PRN 09/17/19 09/17/19 History RespiClick] apixaban [Eliquis] 5 mg PO BID 09/17/19 09/17/19 History furosemide 20 mg PO QAM 09/17/19 09/17/19 History furosemide 40 mg PO QAM 09/17/19 09/17/19 History Allergies Allergy/AdvReac Type Severity Reaction Status Date / Time moxifloxacin AdvReac Mild dizziness Verified 09/17/19 02:21 Past Med/Surg History Medical History AAA (abdominal aortic aneurysm) without rupture (Chronic) Benign enlargement of prostate (Chronic) CAD (coronary artery disease) (Chronic) "s/p stent" Chronic diastolic heart failure (Chronic) CKD (chronic kidney disease), stage III (Chronic) Dependence on continuous supplemental oxygen (Chronic) Gout (Chronic) H/O seborrheic keratosis (Chronic) History of CVA (cerebrovascular accident) without residual deficits (Resolved) Hx MRSA infection (Chronic) "per records" Hx of pulmonary aspiration (Chronic) Hypertension (Chronic) Mixed hyperlipidemia (Chronic) Paroxysmal atrial fibrillation (Chronic) Pulmonary emphysema (Chronic) Pulmonary hypertension (Chronic) "Moderate on echo 09/2014" Squamous cell carcinoma of lip (Resolved) Surgical History Hx of squamous cell carcinoma excision (Chronic) "upper lip" S/P AAA repair (Chronic) S/P coronary artery stent placement (Chronic) "2005 and 2007" S/P hernia repair (Chronic) S/P knee replacement (Chronic) Family History Other No significant family history Social History Preferred Language: Gabonese Communication Ability: Effective 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 and A total of 10 systems reviewed and were otherwise negative Physical Exam Vital Signs Vital Signs - 24 hr 09/17/19 00:51 09/17/19 01:01 09/17/19 01:06 Temperature 36.5 C Temperature Source Oral Pulse Rate 79 82 77 Pulse Rate [Right Radial] Pulse Rate from SpO2 Sensor 82 77 Pulse Rhythm Respiratory Rate 20 20 Respiratory Effort / Characteristics Spontaneous SOB on Exertion Respiratory Depth Normal Respiratory Pattern Regular Blood Pressure 147/88 H 149/78 H Blood Pressure Mean 107 105 Pulse Oximetry 90 98 98 Oxygen Delivery Method Nasal Cannula Nasal Cannula Nasal Cannula Oxygen Flow Rate 3 3 3 Sepsis Recent Fever Within 48 Hours No Sepsis New/Unexplained Change in Mental Status No Sepsis Action Taken by Nursing No Action Required 09/17/19 01:15 09/17/19 01:27 09/17/19 01:31 Temperature Temperature Source Pulse Rate 85 76 Pulse Rate [Right Radial] 74 Pulse Rate from SpO2 Sensor 76 Pulse Rhythm Regular Respiratory Rate 20 22 24 Respiratory Effort / Characteristics Non-Labored Spontaneous Respiratory Depth Respiratory Pattern Blood Pressure Blood Pressure Mean Pulse Oximetry 98 98 100 Oxygen Delivery Method Nasal Cannula Nasal Cannula Nebulizer Oxygen Flow Rate 3 3 Sepsis Recent Fever Within 48 Hours Sepsis New/Unexplained Change in Mental Status Sepsis Action Taken by Nursing 09/17/19 02:01 09/17/19 02:31 09/17/19 03:00 Temperature Temperature Source Pulse Rate 82 93 H 95 H Pulse Rate [Right Radial] Pulse Rate from SpO2 Sensor 82 95 H 96 H Pulse Rhythm Respiratory Rate 22 21 20 Respiratory Effort / Characteristics Respiratory Depth Respiratory Pattern Blood Pressure 131/78 120/72 Blood Pressure Mean 107 99 Pulse Oximetry 100 96 96 Oxygen Delivery Method Nebulizer Nasal Cannula Oxygen Flow Rate 3 3 Sepsis Recent Fever Within 48 Hours Sepsis New/Unexplained Change in Mental Status Sepsis Action Taken by Nursing 09/17/19 03:30 Temperature Temperature Source Pulse Rate 98 H Pulse Rate [Right Radial] Pulse Rate from SpO2 Sensor 98 H Pulse Rhythm Respiratory Rate 20 Respiratory Effort / Characteristics Respiratory Depth Respiratory Pattern Blood Pressure 135/78 Blood Pressure Mean 97 Pulse Oximetry 93 Oxygen Delivery Method Nasal Cannula Oxygen Flow Rate 3 Sepsis Recent Fever Within 48 Hours Sepsis New/Unexplained Change in Mental Status Sepsis Action Taken by Nursing GENERAL: Slight respiratory distress HEENT: Head - normocephalic and atraumatic Pupils are equal, round, and reactive to light. Extraocular eye muscles are intact, and sclera are anicteric. Nose - moist nasal mucosa without discharge. Mouth - moist buccal mucosa. Oropharynx is nonerythematous and there is no tonsillar exudate or edema noted. Neck: Supple; no JVD. Heart: Regular rate and rhythm. There is a normal S1 and S2 with no murmurs, clicks, or gallops appreciated. Lungs: Diffuse inspiratory and expiratory wheezes and diffuse rhonchi Abdomen: Soft, completely nontender, nondistended, with good bowel sounds. There are no palpable pulsatile masses or hepatosplenomegaly. There is no guarding, rigidity, or rebound noted. Extremities: No evidence of cyanosis, clubbing, or edema. There are easily palpable peripheral pulses. Skin: warm and dry with good turgor and no rashes. Course Course 0105: Past medical records reviewed. The patient was evaluated in room B03B. A complete history and physical exam was performed. A twelve-lead EKG was obtained. Labs were drawn as above. The patient went for a 2 view chest. 0115: The patient was given an hour-long DuoNeb. 0220: Upon reevaluation, the patient is not coughing as much. He reports the breathing treatment has helped. The patient has significant orthopnea. A BNP was added and was negative. 0300: Upon reevaluation, I discussed findings and results with the patient. He verbalized agreement of the treatment plan. I spoke with Dr. Yip of the [facility]. The patient will be evaluated for further ma nagement and care. Administered Medications Methylprednisolone (Solumedrol) 40 mg IV ONE ONE Stop: 09/17/19 04:01 Last Admin: 09/17/19 04:02 Dose: 40 mg Documented by: [id number] Discontinued Medications Albuterol (Duoneb) 12 ml INH ONE STA Stop: 09/17/19 01:16 Last Admin: 09/17/19 01:23 Dose: 12 ml Documented by: [id number] Medical Decision Making Differential Diagnosis Differential diagnosis: respiratory failure, COPD exacerbation, CHF, pneumonia Medical Records Attestation: I reviewed the patient's medical records. Home Medications Current Medication List: was personally reviewed by me Laboratory Data Attestation: I reviewed the patient's lab results. Result diagrams: 09/17/19 01:31 09/17/19 01:31 Lab Results 09/17/19 09/17/19 Range/Units 01:31 01:31 WBC 5.58 (4.8-10.8) K/uL RBC 3.77 L (4.7-6.1) M/uL Hgb 11.4 L (14.0-18.0) g/dL Hct 36.2 L (42-52) % MCV 96.0 (80-100) fL MCH 30.2 (25-34) pg MCHC 31.5 L (32-36) g/dL RDW Std Deviation 51.2 H (36.4-46.3) fL RDW Coeff of Lety 14.6 H (11.5-14.5) % Plt Count 189 (130-400) K/uL MPV 9.0 (7.4-10.4) fL Immature Gran % (Auto) 0.4 % Neut % (Auto) 82.7 % Lymph % (Auto) 10.8 % [place] % (Auto) 5.9 % Eos % (Auto) 0.2 % Baso % (Auto) 0.0 % Immature Gran # (Auto) 0.02 (0.00-0.02) K/uL Neut # (Auto) 4.62 (1.4-6.5) K/uL Lymph # (Auto) 0.60 L (1.2-3.4) K/uL [place] # (Auto) 0.33 (0.11-0.59) K/uL Eos # (Auto) 0.01 (0-0.5) K/uL Baso # (Auto) 0.00 (0-0.2) K/uL Sodium 141 (136-145) mmol/L Potassium 3.6 (3.5-5.1) mmol/L Chloride 103 (98-107) mmol/L Carbon Dioxide 34 H (21-32) mmol/L Anion Gap 4.0 (3-11) BUN 22 H (7-18) mg/dl Creatinine 1.46 H (0.6-1.4) mg/dl Est Cr Clr Drug Dosing 38.0 ml/min Est GFR ( Amer) 50.8 Est GFR (Non-Af Amer) 43.9 BUN/Creatinine Ratio 15.2 (10-20) Glucose 117 H (70-99) mg/dl Calcium 8.9 (8.5-10.1) mg/dl Magnesium 2.0 (1.8-2.4) mg/dl Total Bilirubin 0.4 (0.2-1) mg/dl AST 15 (15-37) U/L ALT 15 (12-78) U/L Alkaline Phosphatase 44 L (45-117) U/L Troponin I 0.023 (0-0.045) ng/ml NT-Pro-B Natriuret Pep 607 (0-1800) pg/ml Total Protein 6.6 (6.4-8.2) gm/dl Albumin 3.2 L (3.4-5.0) gm/dl Globulin 3.4 (2.5-4.0) gm/dl Albumin/Globulin Ratio 0.9 (0.9-2) Imaging Data Attestation: I personally reviewed and interpreted this imaging study as follows: My Impression: Chest x-ray 2 views: Significant chronic emphysematous changes Lower left-sided pleural effusion or atelectasis Questionable early right middle lobe pneumonia or resolving right middle lobe pneumonia ECG Data Attestation: I personally reviewed and interpreted this ECG as follows: Indication: + SOB/dyspnea Rate (beats per minute): 74 Rhythm: + normal sinus ECG Intervals/blocks: + Right Bundle branch block Comparison ECG Date: from (07/02/2019) Change: no significant change Blood Pressure Blood Pressure Findings: Normal blood pressure MDM Narrative This is an 84-year-old male patient who presents to the emergency department with intractable coughing and increasing shortness of breath. The patient had recently been discharged from [facility] where he was treated with a double pneumonia as the family describes it. He was discharged on antibiotics and seemed to be doing okay last week but followed up this week with pulmonary medicine as he had some increasing shortness of breath and cough. At that time (3 days ago,) they prolonged his course of Levaquin and started him on a prednisone taper. Patient's family explains that his symptoms are not improving. Chest x-ray reveals evidence of significant emphysema, atelectasis, and a questionable resolving right middle lobe pneumonia. There is no acute findings of CHF. BNP was negative. Despite more aggressive outpatient treatment, the patient's situation is declining. I discussed the case with the [facility]ist service and they will evaluate for further care and consult pulmonary medicine. Impression & Plan COPD exacerbation, Cough Discharge Plan Visit Data Chief Complaint: Respiratory Problems Stated Complaint: HARD TO BREATHE ED Provider: Sachi Walls Discharge Problem: COPD exacerbation, Cough Patient Disposition: Being Evaluated by Hospitalist Forms Stand Alone Forms: My [facility] Prescriptions Prescriptions: No Action (DME) Oxygen Home Liters Per Minute See Dose Instructions .ROUTE .MEDSUPPLY Qty: 1 RF: 0 budesonide 0.5 mg/2 mL suspension for nebulization 2 ml INH BID RF: 0 levofloxacin [Levaquin] 500 mg tablet 500 mg PO DAILY Qty: 7 RF: 0 prednisone 10 mg tablet See Rx Instructions PO DAILY Qty: 20 RF: 0 donepezil 5 mg tablet 5 mg PO HS RF: 0 pravastatin 40 mg tablet 40 mg PO HS RF: 0 amlodipine 5 mg tablet 5 mg PO QAM RF: 0 aspirin 81 mg Tablet,Delayed Release (Dr/Ec) 81 mg PO HS RF: 0 levothyroxine 50 mcg tablet 50 mcg PO QAM RF: 0 allopurinol 300 mg tablet 300 mg PO QAM RF: 0 lisinopril 5 mg tablet 5 mg PO HS RF: 0 potassium chloride 10 mEq tablet,ER particles/crystals 10 meq PO QAM RF: 0 metoprolol tartrate 50 mg tablet 50 mg PO BID RF: 0 Eliquis 5 mg tablet 5 mg PO BID RF: 0 furosemide 40 mg tablet 40 mg PO QAM RF: 0 furosemide 20 mg tablet 20 mg PO QAM RF: 0 ProAir RespiClick 90 mcg/actuation aerosol powdr breath activated 2 puffs INH Q6H PRN (Reason: Shortness Of Breath Or Wheezing) RF: 0 albuterol sulfate 2.5 mg /3 mL (0.083 %) Solution For Nebulization 2.5 mg INHALATION TID RF: 0 Referrals Referrals: Ochoa Kelly, [Primary Care Provider] - The scribe's documentation has been prepared under my direction and personally reviewed by me in its entirety. I confirm that the note above accurately reflects all work, treatment, procedures, and medical decision making performed by me.
[2019-09-17 04:23] LABS: Base Excess ABG 3.1 mEq/L (-9-1.8); HCO3 ABG 28 mmol/L (19-24); Oxygen Saturation ABG 97.5 % (90-95); PCO2 ABG 42 mmHg (35-46); PO2 ABG 104 mm/Hg (80-95); pH ABG 7.44 (7.35-7.45)
[2019-09-17 04:35] LABS: Influenza A virus by PCR Neg for Influ A (Neg); Influenza B virus by PCR Neg for Influ B (Neg)
[2019-09-17 04:59] LABS: Allen Test POS (Pos)
[2019-09-17] MEDS ORDERED: PIPERACILLIN/TAZOBACTAM 4.5 GM/120 ML BAG IV ONE (05:24)
[2019-09-17] MEDS ORDERED: PIPERACILL/TAZOBAC CONSULT ACTIVE PRN ×2 (05:24→16:15)
--- NOTE | 2019-09-17 05:25 | History & Physical Report ---
Date of Service September 17, 2019 Assessment & Plan (1) COPD exacerbation: secondary to HCAP poss recurrent aspiration pneumonia Recent confinement at [facility] for pneumonia Failed outpatient treatment history aspiration risk, esophageal dysfunction as per records No sepsis chronic respiratory failure secondary to COPD on home O2, oxygenation seems to be at baseline Hemoptysis secondary to above hx PAF on Eliquis Patient hemoglobin at baseline. chronic diastolic heart failure EF of 70%, TTE 2018), patient euvolemic CAD status post stent HTN, stable AAA status post surgery history CVA as per records CRI, creatinine at baseline chronic anemia secondary to CKD, hemoglobin at baseline prediabetes, Hemoglobin A1c of 6.28 March 2019 Medical telemetry Supplemental O2 Zosyn, nebs, steroid course Pulmonary consult RE COPD exacerbation, HCAP (Patient/family requesting for Dr. Hart/Fidencio Carmichael PA-C.) Given recurrent admissions for exacerbations of end-stage lung disease this year, patient/family will consider seeking palliative care consultation for possible comfort care recommendations if deemed appropriate by Pulmonology service. Aspiration precautions, follow-up swallow evaluation trend H&H, transfuse PRBC if hemoglobin less than 8 and/or for symptomatic anem ia (hx CAD/CVA as per records) hold Aspirin and Eliquis for now until hemoglobin stable Basal insulin, ISS BG goal 140-180 for anticipated hyperglycemia following steroid Rx, update hemoglobin A1c DVT prophylaxis. SCDs while Eliquis on hold RE hemoptysis Conditional code. No intubation, okay with CPR Patient son requesting updates from providers. Mr. Korey Logan, contact #[phone]. History of Present Illness Chief Complaint: Hemoptysis, S OB Primary Care Provider: Ochoa Kelly, History obtained from patient, family, and records. Medical history significant for chronic respiratory failure secondary to COPD on home O2, chronic diastolic heart failure (EF of 70%, TTE 2018), CAD status post stent, HTN, aortic stenosis, PAF on Eliquis, AAA status post surgery, history CVA as per records, history of esophageal dysfunction/aspiration risk, CRI (baseline creatinine 1.5), chronic anemia (baseline hemoglobin 11), past tobacco use, prediabetes, history of skin cancer status post surgery, hx MRSA. Recent confinement [facility] June 2019 for COPD exacerbation. Recent confinement [facility] last month for bilateral pneumonia. Subsequent discharge to rehab. Patient discharged back home to reside with his son last week. 3 days history of increasing shortness of breath with junky cough occasionally blood-streaked. Still coughing with meals/water intake from time to time if not careful as per patient. No chest pain. Patient seen at [facility] consultant office 3 days ago. Prescribed Levaquin and prednisone course for COPD exacerbation. Worsening symptoms despite compliance with prescription. 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 Allergies Allergy/AdvReac Type Severity Reaction Status Date / Time moxifloxacin AdvReac Mild dizziness Verified 09/17/19 02:21 Home Medications Home Medications Medication Instructions Recorded Confirmed Type allopurinol 300 mg PO QAM 12/05/18 09/17/19 History amlodipine 5 mg PO QAM 12/05/18 09/17/19 History aspirin 81 mg PO HS 12/05/18 09/17/19 History donepezil 5 mg PO HS 12/05/18 09/17/19 History levothyroxine 50 mcg PO QAM 12/05/18 09/17/19 History lisinopril 5 mg PO HS 12/05/18 09/17/19 History pravastatin 40 mg PO HS 12/05/18 09/17/19 History metoprolol tartrate 50 mg PO BID 03/19/19 09/17/19 History potassium chloride 10 meq PO QAM 03/19/19 09/17/19 History Oxygen Home #1 ea 07/15/19 09/14/19 History budesonide 0.5 mg/2 mL suspension 2 ml INH BID 09/14/19 09/17/19 History for nebulization levofloxacin 500 mg tablet 500 mg PO DAILY #7 tab 09/14/19 09/17/19 Rx prednisone 10 mg tablet See Rx Instructions PO DAILY #20 09/14/19 09/17/19 Rx tab albuterol sulfate 2.5 mg INHALATION TID 09/17/19 09/17/19 History albuterol sulfate [ProAir 2 puffs INH Q6H PRN 09/17/19 09/17/19 History RespiClick] apixaban [Eliquis] 5 mg PO BID 09/17/19 09/17/19 History furosemide 20 mg PO QAM 09/17/19 09/17/19 History furosemide 40 mg PO QAM 09/17/19 09/17/19 History Past Med/Surg History Medical History AAA (abdominal aortic aneurysm) without rupture (Chronic) Benign enlargement of prostate (Chronic) CAD (coronary artery disease) (Chronic) "s/p stent" Chronic diastolic heart failure (Chronic) CKD (chronic kidney disease), stage III (Chronic) Dependence on continuous supplemental oxygen (Chronic) Gout (Chronic) H/O seborrheic keratosis (Chronic) History of CVA (cerebrovascular accident) without residual deficits (Resolved) Hx MRSA infection (Chronic) "per records" Hx of pulmonary aspiration (Chronic) Hypertension (Chronic) Mixed hyperlipidemia (Chronic) Paroxysmal atrial fibrillation (Chronic) Pulmonary emphysema (Chronic) Pulmonary hypertension (Chronic) "Moderate on echo 09/2014" Squamous cell carcinoma of lip (Resolved) Surgical History Hx of squamous cell carcinoma excision (Chronic) "upper lip" S/P AAA repair (Chronic) S/P coronary artery stent placement (Chronic) "2005 and 2007" S/P hernia repair (Chronic) S/P knee replacement (Chronic) Family History Other No significant family history Social History Preferred Language: Welsh Communication Ability: Effective Senior 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 Required: No Beliefs That Will Affect Care: None marital status: / Current Living Situation: Family Current Living Situation Comment: 3 children current occupational status: retired Feels Safe at Home: Yes Safety Concerns: Feels Safe At This Time Smoking Status: Former smoker Tobacco Type: cigarettes, pipe and cigars ; Cigarettes Per Day: 20 ; Do You Dip or Chew Tobacco: Yes (snuff) ; Smoking End Date: smoking 1990, tobacco 2018 ; Second Hand Exposure: No ; Hx Alcohol Use: Yes Alcohol type: beer Hx Substance Use: No Review of Systems Review of Systems: As per HPI, all 10 systems reviewed, all other ROS negative Physical Exam Physical Exam: GENERAL: Slightly uncomfortable, speaks in phrases, minimal respiratory distress, pleasant, slightly hard of hearing, intermittent coughing SKIN: Pallor , warm HEENT: Pale palpebral conjunctivae, no ptosis, dry buccal mucosa, nasal cannula in place NECK : Supple, no tenderness CHEST : Decreased breath sounds , expiratory wheezes, no tenderness HEART : RRR, systolic murmur ABDOMEN: Some distention, nontender EXTREMITIES : No LE swelling/tenderness, no other conspicuous deformities noted NEUROLOGIC : Coherent, no facial asymmetry, slightly hard of hearing, no other gross focality Results & Data Vital Signs (Past 12 Hours) Vital Signs Temp Pulse Pulse Resp BP Pulse Ox 09/17/19 05:00 97 H 17 124/81 97 09/17/19 04:00 94 H 19 137/71 96 09/17/19 03:30 98 H 20 135/78 93 09/17/19 03:00 95 H 20 120/72 96 09/17/19 02:31 93 H 21 131/78 96 09/17/19 02:01 82 22 100 09/17/19 01:31 76 24 100 09/17/19 01:27 74 22 98 09/17/19 01:15 85 20 98 09/17/19 01:06 77 20 98 09/17/19 01:01 82 149/78 H 98 09/17/19 00:51 36.5 C 79 20 147/88 H 90 Laboratory Results Laboratory Results WBC 5.58 K/uL (4.8-10.8) 09/17/19 01:31 RBC 3.77 M/uL (4.7-6.1) L 09/17/19 01:31 Hgb 11.4 g/dL (14.0-18.0) L 09/17/19 01:31 Hct 36.2 % (42-52) L 09/17/19 01:31 MCV 96.0 fL (80-100) 09/17/19 01:31 MCH 30.2 pg (25-34) 09/17/19 01:31 MCHC 31.5 g/dL (32-36) L 09/17/19 01:31 RDW Std Deviation 51.2 fL (36.4-46.3) H 09/17/19 01:31 RDW Coeff of Lety 14.6 % (11.5-14.5) H 09/17/19 01:31 Plt Count 189 K/uL (130-400) 09/17/19 01:31 MPV 9.0 fL (7.4-10.4) 09/17/19 01:31 Immature Gran % (Auto) 0.4 % 09/17/19 01:31 Neut % (Auto) 82.7 % 09/17/19 01:31 Lymph % (Auto) 10.8 % 09/17/19 01:31 Hardin % (Auto) 5.9 % 09/17/19 01:31 Eos % (Auto) 0.2 % 09/17/19 01:31 Baso % (Auto) 0.0 % 09/17/19 01:31 Immature Gran # (Auto) 0.02 K/uL (0.00-0.02) 09/17/19 01:31 Neut # (Auto) 4.62 K/uL (1.4-6.5) 09/17/19 01:31 Lymph # (Auto) 0.60 K/uL (1.2-3.4) L 09/17/19 01:31 Hardin # (Auto) 0.33 K/uL (0.11-0.59) 09/17/19 01:31 Eos # (Auto) 0.01 K/uL (0-0.5) 09/17/19 01:31 Baso # (Auto) 0.00 K/uL (0-0.2) 09/17/19 01:31 ABG pH 7.44 (7.35-7.45) 09/17/19 04:10 ABG pCO2 42 mmHg (35-46) 09/17/19 04:10 ABG pO2 104 mm/Hg (80-95) H 09/17/19 04:10 ABG HCO3 28 mmol/L (19-24) H 09/17/19 04:10 ABG O2 Saturation 97.5 % (90-95) H 09/17/19 04:10 ABG Base Excess 3.1 mEq/L (-9-1.8) H 09/17/19 04:10 Michael Test POS (Pos) 09/17/19 04:10 Barometric Pressure 726.7 mm/Hg 09/17/19 04:10 Oxygen Given 3 L 09/17/19 04:10 Sodium 141 mmol/L (136-145) 09/17/19 01:31 Potassium 3.6 mmol/L (3.5-5.1) 09/17/19 01:31 Chloride 103 mmol/L (98-107) 09/17/19 01:31 Carbon Dioxide 34 mmol/L (21-32) H 09/17/19 01:31 Anion Gap 4.0 (3-11) 09/17/19 01:31 BUN 22 mg/dl (7-18) H 09/17/19 01:31 Creatinine 1.46 mg/dl (0.6-1.4) H 09/17/19 01:31 Est Cr Clr Drug Dosing 38.0 ml/min 09/17/19 01:31 Est GFR ( Amer) 50.8 09/17/19 01:31 Est GFR (Non-Af Amer) 43.9 09/17/19 01:31 BUN/Creatinine Ratio 15.2 (10-20) 09/17/19 01:31 Glucose 117 mg/dl (70-99) H 09/17/19 01:31 Calcium 8.9 mg/dl (8.5-10.1) 09/17/19 01:31 Magnesium 2.0 mg/dl (1.8-2.4) 09/17/19 01:31 Total Bilirubin 0.4 mg/dl (0.2-1) 09/17/19 01:31 AST 15 U/L (15-37) 09/17/19 01:31 ALT 15 U/L (12-78) 09/17/19 01:31 Alkaline Phosphatase 44 U/L (45-117) L 09/17/19 01:31 Troponin I 0.023 ng/ml (0-0.045) 09/17/19 01:31 NT-Pro-B Natriuret Pep 607 pg/ml (0-1800) 09/17/19 01:31 Total Protein 6.6 gm/dl (6.4-8.2) 09/17/19 01:31 Albumin 3.2 gm/dl (3.4-5.0) L 09/17/19 01:31 Globulin 3.4 gm/dl (2.5-4.0) 09/17/19 01:31 Albumin/Globulin Ratio 0.9 (0.9-2) 09/17/19 01:31 Influenza Type A (PCR) Neg for Influ A (Neg) 09/17/19 03:53 Influenza Type B (PCR) Neg for Influ B (Neg) 09/17/19 03:[address] chest initial read extensive centrilobular emphysema with parenchymal loss and architectural distortion noted diffusely but mostly on the upper lobes. Thin-walled cysts within the left medial basal segment demonstrating layering fluid new from previous exam infection within bullae is suspected. No lobar consolidation. Stable subtle segmental opacities in the posterior lung bases presumed to be chronic atelectasis. Noncalcified 6 mm pulmonary nodule right upper lobe unchanged from previous exam. Mild ectasia of the ascending aorta with atherosclerosis. No pericardial effusion, no significant mediastinal adenopathy. EKG as per my interpretation: Rate 75, NSR, normal axis, right bundle branch block, upsloping ST depression lateral leads
--- NOTE | 2019-09-17 06:29 | CT Scan Report ---
CT chest wo con CT DOSE: 295.09 mGy.cm HISTORY: Dyspnea hemoptysis TECHNIQUE: Multiaxial CT images of the chest were performed without contrast. A dose lowering techni que was utilized adhering to the principles of ALARA. COMPARISON: 07/04/2019 FINDINGS: Extensive emphysematous change. This is considered similar as compared to the prior study. 6 mm nodule right upper lobe unchanged compared to several prior exams. Several basilar pulmonary blebs are present. There is a parenchymal infiltrate of the inferior left l ower lobe. There are air-fluid levels with at least 2 potentially contiguous blebs of the left lung base. Limite d evaluation of the upper abdomen is unremarkable. IMPRESSION: 1. Interval development of a left lower lobe infiltrate. 2. Interval development of fluid within 2 immediately contiguous cysts of the left lung base. Possibl e cyst infection is not excluded. 3. Stable 6 mm right upper lobe nodule. 4. Stable emphysematous change throughout both hemithoraces. The above report was generated using voice recognition software. It may contain grammatical, syntax or spelling errors. Electronically signed by: Arian Faye M.D. 09/17/2019 6:27 AM
--- NOTE | 2019-09-17 07:16 | XRay Report ---
XR chest 2V PA/lateral CLINICAL HISTORY: 84 years-old Male presenting with Dyspnea. TECHNIQUE: PA and lateral views of the chest were obtained. COMPARISON: 07/07/2019. FINDINGS: Atherosclerosis of the aortic arch. Cardiac silhouette normal in size. Coronary artery stent noted. L ungs are hyperinflated. Heterogeneous radiolucency of the lungs. Cavitary lesion at the left lung bas e with an air-fluid level. Surrounding opacity in the left lower lobe. Small left pleural effusion. N o pneumothorax. Degenerative changes of the thoracic spine. Upper abdomen normal. IMPRESSION: 1. Cavitary lesion containing an air-fluid level at the left lung base with surrounding infiltrate a nd small pleural effusion. Infection is of primary concern. A neoplastic etiology must also be exclud ed. This requires follow-up. 2. Underlying emphysema. Electronically signed by: Travis Griffin M.D. 09/17/2019 7:15 AM
[2019-09-17] MEDS ORDERED: TRAMADOL HCL 50 MG TABLET PO PRN (08:31)
[2019-09-17] MEDS ORDERED: CARBOHYDRATES FOR HYPOGLYCEMIA PO PRN (08:31)
[2019-09-17] MEDS ORDERED: GLUCAGON FOR INJ 1 MG VIAL SQ PRN (08:31)
[2019-09-17] MEDS ORDERED: HYDROmorphone INJ 0.5 MG/0.5 ML SYR IV PRN (08:31)
[2019-09-17] MEDS ORDERED: ACETAMINOPHEN 325 MG TAB PO PRN (08:31)
[2019-09-17] MEDS ORDERED: GLUCOSE 40% GEL 15 GM TUBE PO PRN (08:31)
[2019-09-17] MEDS ORDERED: GLUCOSE 10 TABS/TUBE PO PRN (08:31)
[2019-09-17] MEDS ORDERED: PROMETHAZINE HCL 12.5 MG in SODIUM CHLORIDE 0.9% 50 ML IV PRN (08:31)
[2019-09-17] MEDS ORDERED: DEXTROSE 50% 50 ML SYRINGE IV PRN (08:31)
[2019-09-17] MEDS ORDERED: LACTATED RINGER'S 1,000 ML IV ONE (08:31)
[2019-09-17] MEDS ORDERED: POTASSIUM CHLORIDE 20 MEQ TABCR PO STA (08:31)
[2019-09-17] MEDS ORDERED: XOPENEX/ATROVENT 1.25mg/0.5MG NEB COMBO NEB SCH (08:31)
[2019-09-17] MEDS ORDERED: INSULIN GLARGINE SOLOSTAR 100 UNITS/ML 3 ML PEN SQ STA (08:31)
[2019-09-17] MEDS: LEVALBUTEROL 1.25MG/0.5ML NEB INH SCH ×3 (08:53→19:28)
[2019-09-17] MEDS: IPRATROPIUM BROMIDE NEB SOLN 0.02% 2.5 ML VIAL INH SCH ×3 (08:53→19:28)
[2019-09-17 09:03] LABS: Hematocrit (blood only) 34.7 % (42-52); Hemoglobin 10.9 g/dL (14.0-18.0)
[2019-09-17 09:11] LABS: Partial Thromboplastin Ratio 1.1; Partial Thromboplastin Time 29.4 Seconds (21.0-31.0)
[2019-09-17] MEDS ORDERED: PIPERACILLIN/TAZOBACTAM 3.375 GM in DEXTROSE 5% 100 ML IV SCH ×2 (10:00→16:15)
[2019-09-17] MEDS: INSULIN ASPART 100 UNITS/ML 3 ML PEN SC SCH ×4 (10:04→20:49)
[2019-09-17] MEDS: AMLODIPINE BESYLATE 5 MG TAB PO SCH (10:07)
[2019-09-17] MEDS: ALLOPURINOL 300 MG TAB PO SCH (10:07)
[2019-09-17] MEDS: LEVOTHYROXINE SODIUM 50 MCG TABLET PO SCH (10:07)
[2019-09-17] MEDS: METOPROLOL TARTRATE 50 MG TAB PO SCH ×2 (10:08→20:43)
[2019-09-17 10:29] LABS: Estimated Average Glucose 134 mg/dl; Hemoglobin A1C 6.3 % (4.5-5.6)
--- NOTE | 2019-09-17 14:22 | Fluoroscopy Report ---
FL video swallow HISTORY: Assess for aspiration. determine least restrictive diet TECHNIQUE: Video fluoroscopic evaluation of swallowing was performed in the AP and lateral projection s by the speech pathology staff. The patient is fed nectar-thick and thin liquid barium, a barium coa mignon wafer, and barium pudding. FLUOROSCOPY TIME: 1.5 minutes. A cine loop submitted. COMPARISON STUDY: None. FINDINGS: There is normal hyoid excursion and epiglottic deflection. No significant penetration or as piration identified. Swallowing function is within normal limits. Mild esophageal dysmotility. IMPRESSION: 1. No aspiration identified. Mild esophageal dysmotility. 2. Please see the speech pathologist report for detailed findings and recommendations. Electronically signed by: Alejandro Spence M.D. 09/17/2019 2:21 PM
--- NOTE | 2019-09-17 15:52 | Hospitalist Progress Note ---
Date of Service September 17, 2019 Assessment & Plan (1) COPD exacerbation: Trial of formoterol and Spiriva now. Nebulized saline. Budesonide twice daily. Systemic steroids not recommended. Cont Zosyn pending culture results and clinical improvement. Video swallow study for ? aspiration. (2) Pneumonia: Recent hospitalization at [facility] and multiple hospitalizations prior to that. Cont Zosyn. Video swallow study for ? aspiration. Per pulmonology patient appears to have infected bullae. This will require prolonged antibiotics. Scant hemoptysis has been noted by patient but this is not persistent or copious. Follow-up with pulmonology closely as an outpatient is recommended. (3) CKD (chronic kidney disease), stage III: Chronic/stable. Trend BMP. Avoid nephrotoxic medications. Renally dose meds as needed. (4) Paroxysmal atrial fibrillation: Rate controlled with Lopressor. Eliquis initially held on admission while monitoring for worsening hemoptysis. (5) CAD (coronary artery disease): Aspirin initially held in setting of questionable hemoptysis. Continue medical management for CAD which is appears stable. Continue home lisinopril, Lopressor. Statin also held on admission. (6) Dependence on continuous supplemental oxygen: Secondary to COPD. Continue supplemental oxygen as needed to maintain oxygen saturation 88 to 92%. (7) Chronic diastolic heart failure: Stable, euvolemic. Home Lasix held initially. May restart in am. (8) Prediabetes: Recent hemoglobin A1c 6.2. Initially started on NovoLog with carb coverage and correction factor in addition to small dose of Lasix. BSG qACHS and currently controlled. (9) Hx MRSA infection: Contact isolation. (10) DVT prophylaxis: SCDs/plan to restart Eliquis when clinically improved. Conditional code okay with CPR and cardiac defibrillation, no intubation. Dispo-plan for home when medically stable, PT/OT to assess safety for return home Darlene Stokes DO [facility] Hospitalist Subjective Feels improved since admission but still short of breath. Still coughing up pro ductive sputum. Tolerating p.o. No conversational dyspnea. Son is at bedside and assessment plan reviewed with him with all questions answered. Patient is afebrile without chills and has no other symptoms at this time. Review of Systems Review of Systems: All systems reviewed & are unremarkable except as noted in HPI & below Physical Exam Physical Exam: CONSTITUTIONAL: WNWD, elderly, vitals as above, generally well-appearing EYES: normal conjunctivae, no scleral icterus ENT: MMM RESPIRATORY: clear to auscultation bilaterally, diminished breath sounds throughout, no crackles, rales or wheezes, normal respiratory effort, no conversational dyspnea CARDIOVASCULAR: regular rate and rhythm, S1 and 2 heard without murmurs, gallops or rubs, no JVD, no peripheral edema, no carotid bruits GASTROINTESTINAL: soft, nontender, nondistended MUSCULOSKELETAL: strength 5/5 throughout, head is normocephalic and atraumatic SKIN: warm and dry NEUROLOGIC: CN 2-12 grossly intact, normal cognition, no gross focal deficits. PSYCHIATRIC: alert cooperative and oriented to person, place and time. Results & Data Vital Signs (Past 12 Hours) Vital Signs Temp Pulse Pulse Pulse Resp BP BP 09/17/19 15:20 36.6 C 78 20 130/72 09/17/19 11:29 36.6 C 92 H 18 131/73 09/17/19 09:12 36.6 C 97 H 22 163/90 H 09/17/19 08:54 95 H 18 09/17/19 07:34 94 H 09/17/19 07:25 36.5 C 93 H 18 151/85 H 09/17/19 06:00 93 H 18 138/82 09/17/19 05:30 97 H 21 158/88 H 09/17/19 05:00 97 H 17 124/81 09/17/19 04:00 94 H 19 137/71 Pulse Ox 09/17/19 15:20 95 09/17/19 11:29 95 09/17/19 09:12 94 09/17/19 08:54 96 09/17/19 07:34 09/17/19 07:25 94 09/17/19 06:00 91 09/17/19 05:30 95 09/17/19 05:00 97 09/17/19 04:00 96 Laboratory Results Short CBC 09/17/19 09/17/19 Range/Units 01:31 08:40 WBC 5.58 (4.8-10.8) K/uL Hgb 11.4 L 10.9 L (14.0-18.0) g/dL Hct 36.2 L 34.7 L (42-52) % Plt Count 189 (130-400) K/uL BMP 09/17/19 01:31 Sodium 141 Potassium 3.6 Chloride 103 Carbon Dioxide 34 H BUN 22 H Creatinine 1.46 H Glucose 117 H Calcium 8.9 Cardiac Enzymes 09/17/19 Range/Units 01:31 Troponin I 0.023 (0-0.045) ng/ml Liver Function 09/17/19 Range/Units 01:31 Total Bilirubin 0.4 (0.2-1) mg/dl AST 15 (15-37) U/L ALT 15 (12-78) U/L Alkaline Phosphatase 44 L (45-117) U/L Albumin 3.2 L (3.4-5.0) gm/dl Medications Administered Current Inpatient Medications Acetaminophen (Tylenol) 650 mg PO Q4H PRN PRN Reason: Pain or Fever Stop: 10/17/19 08:30 [facility] ([facility]oprim) [facility] Stop: 10/17/19 08:59 Last Admin: 09/17/19 10:07 Dose: 300 mg Documented by: Amlodipine Besylate (Norvasc) 5 mg PO QAM [facility] Stop: 10/17/19 08:59 Last Admin: 09/17/19 10:07 Dose: 5 mg Documented by: Benzonatate (Tessalon Perle) 100 mg PO TID PRN PRN Reason: Cough Stop: 10/17/19 08:30 Dextrose (Dextrose 50%) 25 - 50 ml IV UD PRN; Protocol PRN Reason: Hypoglycemia Protocol Stop: 10/17/19 08:30 Donepezil HCl (Aricept) 5 mg PO HS [facility] Stop: 10/17/19 20:59 Glucagon (Glucagen) 1 mg SQ UD PRN; Protocol PRN Reason: Hypoglycemia Protocol Stop: 10/17/19 08:30 Glucose (Dex4 Glucose) 4 - 8 tabs PO UD PRN; Protocol PRN Reason: Hypoglycemia Protocol Stop: 10/17/19 08:30 Glucose (Glucose 40%) 15 - 30 gm PO UD PRN; Protocol PRN Reason: Hypoglycemia Protocol Stop: 10/17/19 08:30 Hydromorphone HCl (Dilaudid) 0.25 mg IV Q3H PRN PRN Reason: Pain Stop: 10/01/19 08:30 Lactated Ringer's (Lr) 1,000 mls @ 50 mls/hr IV .Q20H ONE Stop: 09/18/19 04:30 Last Admin: 09/17/19 10:57 Dose: 50 mls/hr Documented by: Promethazine HCl 12.5 mg/ (Sodium Chloride) 50.5 mls @ 202 mls/hr IV Q6H PRN PRN Reason: Nausea And Vomiting Stop: 10/17/19 08:30 Methylprednisolone 40 mg/ (Syringe) 0.64 mls @ 1.5 mls/min IV DAILY [facility] Stop: 10/18/19 08:59 Piperacillin Sod/Tazobactam (Sod 3.375 gm/ Dextrose) 115 mls @ 230 mls/hr IV Q6H [facility]; Protocol Stop: 09/24/19 09:59 Insulin Aspart (Novolog Flexpen) 0 units SC ACHS [facility] Stop: 10/17/19 08:30 Last Admin: 09/17/19 12:23 Dose: 7 units Documented by: Insulin Glargine (Lantus Solostar Pen) 5 units SQ DAILY [facility] Stop: 10/18/19 08:59 Ipratropium [place] (Atrovent 0.02% 0.5mg/2.5ml) 0.5 mg INH Q6R [facility] Stop: 10/17/19 08:30 Last Admin: 09/17/19 13:14 Dose: Not Given Documented by: Levalbuterol HCl (Xopenex 1.25mg/0.5ml Neb) 1.25 mg INH Q6R [facility] Stop: 10/17/19 08:30 Last Admin: 09/17/19 13:15 Dose: Not Given Documented by: Levothyroxine Sodium (Synthroid) 50 mcg PO DAILYBB [facility] Stop: 10/17/19 08:59 Last Admin: 09/17/19 10:07 Dose: 50 mcg Documented by: Lisinopril (Zestril) 5 mg PO HS [facility] Stop: 10/17/19 20:59 Metoprolol Tartrate (Lopressor) 50 mg PO BID [facility] Stop: 10/17/19 08:59 Last Admin: 09/17/19 10:08 Dose: 50 mg Documented by: Miscellaneous (Carbohydrates For Hypoglycemia) 15 - 30 gm PO UD PRN PRN Reason: Hypoglycemia Protocol Stop: 10/17/19 08:30 Miscellaneous Information (Consult) 1 ea N/A UD PRN PRN Reason: Consult Stop: 10/17/19 05:23 Tramadol HCl (Ultram) 25 mg PO Q4H PRN PRN Reason: Pain Stop: 10/17/19 08:30
[2019-09-17] MEDS: PIPERACILLIN/TAZOBACTAM 3.375 GM in DEXTROSE 5% 100 ML IV SCH ×2 (16:02→22:01)
--- NOTE | 2019-09-17 16:02 | Pulmonary Consultation ---
Date of Consultation September 17, 2019 Assessment & Plan (1) Acute on chronic respiratory failure with hypoxia and hypercapnia: Impression: 84-year-old male with advanced obstructive lung disea se/emphysema and acute on chronic hypoxemic respiratory failure with a history of hypercarbic respiratory failure admitted now with air-fluid levels and multiple bullae suggestive of infected bullae and possible pneumonia. Recommendations: 1. Infected bullae: These typically require prolonged courses of antibiotics, often 2 to 4 weeks. Would recommend Augmentin given the questionable aspiration events when the patient is okay to transition to oral antibiotics. Follow-up imaging should be performed in a few weeks. 2. Advanced obstructive lung disease with associated dyspnea: Unclear if the patient has adequate pulmonary reserve to tolerate MDIs or DPI's. We will place him on a trial of Perforomist and continue Spiriva for now. Could consider chronic azithromycin therapy in the outpatient setting but would need his acute infection adequately addressed and treated prior to consideration. He does not appear overtly bronchospastic currently and I would not recommend high-dose steroids. 3. History of hypercarbia: The patient has what sounds like a trilogy nocturnal ventilator at home. It is been extraordinarily difficult for him to tolerate at home and is only been able to use it for a few minutes at a time. We could consider BiPAP at night as I suspect he may have some component of dynamic airway collapse based on his history. We will see how he does with nebulizers a flutter valve and Mucinex for now. I think the risks of bronchoscopy outweigh potential benefit in this patient. 4. Advised the patient and his son that his lung disease is a quite advanced stage. He agrees that intubation mechanical ventilation would not be in his best long-term interest. We will see what we can accomplish with adjustment of his medications but certainly discussions approaching end-of-life issues may be appropriate. We will continue to follow. (2) COPD exacerbation: (3) COPD exacerbation: (4) Pneumonia: History of Present Illness Attending Physician: Darlene Stokes, DO History of Present Illness Asked by hospitalist to evaluate this patient with known obstructive lung disease and chronic hypoxemic respiratory failure and increasing shortness of breath with frequent hospital admissions. Patient is known to the ROSELINE Carmichael in the outpatient setting and was just seen by him few days ago and placed on Levaquin. History is obtained from review electronic medical record as well as discussion with ROSELINE Carmichael and interview the patient at bedside. Patient is an 84-year-old male with advanced obstructive lung disease and chronic hypoxemic respiratory failure. He is been admitted on multiple occasions for progressive respiratory decline. He presented to the hospital with continued shortness of breath after being recently admitted to [facility]. He states that while there he was discharged on what sounds like a trilogy nocturnal ventilator. He had difficulty tolerating it was only able to use it for a few minutes at a time. He followed up with ROSELINE Carmichael 2 days ago was placed on Levaquin and prednisone. His symptoms did not improve significantly which prompted him to seek attention in the emergency room where he was admitted. He had a repeat CT scan showing evidence of fluid-filled bullae as well as a patchy left lower lobe airspace opacity. He states he has been using his inhalers at home but is unclear if they are offering him a clinical benefit. Allergies Allergy/AdvReac Type Severity Reaction Status Date / Time moxifloxacin AdvReac Mild dizziness Verified 09/17/19 02:21 Home Medications Home Medications Medication Instructions Recorded Confirmed Type allopurinol 300 mg PO QAM 12/05/18 09/17/19 History amlodipine 5 mg PO QAM 12/05/18 09/17/19 History aspirin 81 mg PO HS 12/05/18 09/17/19 History donepezil 5 mg PO HS 12/05/18 09/17/19 History levothyroxine 50 mcg PO QAM 12/05/18 09/17/19 History lisinopril 5 mg PO HS 12/05/18 09/17/19 History pravastatin 40 mg PO HS 12/05/18 09/17/19 History metoprolol tartrate 50 mg PO BID 03/19/19 09/17/19 History potassium chloride 10 meq PO QAM 03/19/19 09/17/19 History Oxygen Home #1 ea 07/15/19 09/14/19 History budesonide 0.5 mg/2 mL suspension 2 ml INH BID 09/14/19 09/17/19 History for nebulization levofloxacin 500 mg tablet 500 mg PO DAILY #7 tab 09/14/19 09/17/19 Rx prednisone 10 mg tablet See Rx Instructions PO DAILY #20 09/14/19 09/17/19 Rx tab albuterol sulfate 2.5 mg INHALATION TID 09/17/19 09/17/19 History albuterol sulfate [ProAir 2 puffs INH Q6H PRN 09/17/19 09/17/19 History RespiClick] apixaban [Eliquis] 5 mg PO BID 09/17/19 09/17/19 History furosemide 20 mg PO QAM 09/17/19 09/17/19 History furosemide 40 mg PO QAM 09/17/19 09/17/19 History Patient History Medical History AAA (abdominal aortic aneurysm) without rupture (Chronic) Benign enlargement of prostate (Chronic) CAD (coronary artery disease) (Chronic) "s/p stent" Chronic diastolic heart failure (Chronic) CKD (chronic kidney disease), stage III (Chronic) Dependence on continuous supplemental oxygen (Chronic) Gout (Chronic) H/O seborrheic keratosis (Chronic) History of CVA (cerebrovascular accident) without residual deficits (Resolved) Hx MRSA infection (Chronic) "per records" Hx of pulmonary aspiration (Chronic) Hypertension (Chronic) Mixed hyperlipidemia (Chronic) Paroxysmal atrial fibrillation (Chronic) Pulmonary emphysema (Chronic) Pulmonary hypertension (Chronic) "Moderate on echo 09/2014" Squamous cell carcinoma of lip (Resolved) Surgical History Hx of squamous cell carcinoma excision (Chronic) "upper lip" S/P AAA repair (Chronic) S/P coronary artery stent placement (Chronic) "2005 and 2007" S/P hernia repair (Chronic) S/P knee replacement (Chronic) Family History Other No significant family history Social History Preferred Language: Divehi Communication Ability: Effective 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 Beliefs That Will Affect Care: None marital status: / Current Living Situation: Family Current Living Situation Comment: 3 children current occupational status: retired Feels Safe at Home: Yes Safety Concerns: Feels Safe At This Time Smoking Status: Former smoker Tobacco Type: cigarettes, pipe and cigars ; Cigarettes Per Day: 20 ; Do You Dip or Chew Tobacco: Yes (snuff) ; Smoking End Date: smoking 1990, tobacco 2018 ; Second Hand Exposure: No ; Hx Alcohol Use: Yes Alcohol type: beer Hx Substance Use: No Review of Systems Review of Systems: All systems reviewed & are unremarkable except as noted in HPI & below Physical Exam Constitutional: + ill appearing, + thin and + cachectic Neck: trachea midline, no thyromegaly Respiratory: Diminished breath sounds throughout. No wheezing Cardiovascular: RRR, no murmur, no edema Gastrointestinal (Abdomen): normal bowel sounds, soft, nontender, no hepatosplenomegaly Skin: Multiple ecchymoses and areas of bruising with small skin tears Psychiatric: A+Ox3, euthymic affect Results & Data Vital Signs (Past 12 Hours) Vital Signs Temp Pulse Pulse Pulse Resp BP BP 09/17/19 15:20 36.6 C 78 20 130/72 09/17/19 11:29 36.6 C 92 H 18 131/73 09/17/19 09:12 36.6 C 97 H 22 163/90 H 09/17/19 08:54 95 H 18 09/17/19 07:34 94 H 09/17/19 07:25 36.5 C 93 H 18 151/85 H 09/17/19 06:00 93 H 18 138/82 09/17/19 05:30 97 H 21 158/88 H 09/17/19 05:00 97 H 17 124/81 09/17/19 04:00 94 H 19 137/71 Pulse Ox 09/17/19 15:20 95 09/17/19 11:29 95 09/17/19 09:12 94 09/17/19 08:54 96 09/17/19 07:34 09/17/19 07:25 94 09/17/19 06:00 91 09/17/19 05:30 95 09/17/19 05:00 97 09/17/19 04:00 96 Laboratory Results 09/17/19 08:40 09/17/19 01:31 09/17/19 04:10 ABG pH 7.44 ABG pCO2 42 ABG pO2 104 H ABG HCO3 28 H ABG O2 Saturation 97.5 H ABG Base Excess 3.1 H Diagnostic Findings Imaging independently reviewed. CT the ches from 09/16/2019 was independently reviewed. There are multiple bullae with air-fluid levels consistent with a diagnosis of bullitis. Severe centrilobular and paraseptal emphysematous changes are noted CT chest wo con CT DOSE: 295.09 mGy.cm HISTORY: Dyspnea hemoptysis TECHNIQUE: Multiaxial CT images of the chest were performed without contrast. A dose lowering technique was utilized adhering to the principles of ALARA. COMPARISON: 07/04/2019 FINDINGS: Extensive emphysematous change. This is considered similar as compared to the prior study. 6 mm nodule right upper lobe unchanged compared to several prior exams. Several basilar pulmonary blebs are present. There is a parenchymal infiltrate of the inferior left lower lobe. There are air-fluid levels with at least 2 potentially contiguous blebs of the left lung base. Limited evaluation of the upper abdomen is unremarkable. IMPRESSION: 1. Interval development of a left lower lobe infiltrate. 2. Interval development of fluid within 2 immediately contiguous cysts of the left lung base. Possible cyst infection is not excluded. 3. Stable 6 mm right upper lobe nodule. 4. Stable emphysematous change throughout both hemithoraces. PG Care Time/CCT Total # of Minutes Spent Total Time Spent with Patient: Total time spent is greater than 50% in coordination of care (as documented) at patient's floor/unit and/or counseling patient:
[2019-09-17] MEDS: TIOTROPIUM BROMIDE 5 PUFF/90 MCG INH INH SCH (17:41)
[2019-09-17] MEDS: BUDESONIDE 0.5 MG/2 ML VIAL (PULMICORT) NEB SCH (19:27)
[2019-09-17] MEDS: SODIUM CHLOR 7% 4 ML NEB NEB SCH (19:27)
[2019-09-17] MEDS: FORMOTEROL 20 MCG/2 ML VIAL NEB SCH (19:27)
[2019-09-17] MEDS: guaiFENesin 600 MG TABCR PO SCH (20:41)
[2019-09-17] MEDS: LISINOPRIL 5 MG TAB PO SCH (20:41)
[2019-09-17] MEDS: BENZONATATE 100 MG CAPSULE PO PRN (20:42)
[2019-09-17] MEDS: DONEPEZIL HCL 5 MG TAB PO SCH (20:43)
[2019-09-18] MEDS: IPRATROPIUM BROMIDE NEB SOLN 0.02% 2.5 ML VIAL INH SCH ×4 (00:51→19:14)
[2019-09-18] MEDS: LEVALBUTEROL 1.25MG/0.5ML NEB INH SCH ×4 (00:52→19:15)
[2019-09-18] MEDS: PIPERACILLIN/TAZOBACTAM 3.375 GM in DEXTROSE 5% 100 ML IV SCH (03:45)
[2019-09-18] MEDS: LEVOTHYROXINE SODIUM 50 MCG TABLET PO SCH (05:56)
[2019-09-18] MEDS: FORMOTEROL 20 MCG/2 ML VIAL NEB SCH ×2 (06:57→19:13)
[2019-09-18] MEDS: BUDESONIDE 0.5 MG/2 ML VIAL (PULMICORT) NEB SCH ×2 (06:57→19:14)
[2019-09-18] MEDS: SODIUM CHLOR 7% 4 ML NEB NEB SCH ×2 (06:57→19:14)
[2019-09-18 07:07] LABS: Basophils # (auto) 0.01 K/uL (0-0.2); Basophils % (auto) 0.2 %; Eosinophils # (auto) 0.08 K/uL (0-0.5); Eosinophils % (auto) 1.5 %; Hemoglobin 10.5 g/dL (14.0-18.0); Immature Granulocytes # (auto) 0.01 K/uL (0.00-0.02); Immature Granulocytes % (auto) 0.2 %; Lymphocytes # (auto) 0.84 K/uL (1.2-3.4); Lymphocytes % (auto) 15.7 %; Mean Corpuscular Hemoglobin 29.7 pg (25-34); Mean Corpuscular Hgb Conc 30.9 g/dL (32-36); Mean Corpuscular Volume 96.3 fL (80-100); Mean Platelet Volume 9.2 fL (7.4-10.4); Monocytes # (auto) 0.51 K/uL (0.11-0.59); Monocytes % (auto) 9.6 %; Neutrophils # (auto) 3.89 K/uL (1.4-6.5); Neutrophils % (auto) 72.8 %; Platelet Count 180 K/uL (130-400); RDW Coefficient of Variation 14.5 % (11.5-14.5); RDW Standard Deviation 51.2 fL (36.4-46.3); Red Blood Count 3.53 M/uL (4.7-6.1); White Blood Count 5.34 K/uL (4.8-10.8)
[2019-09-18 07:35] LABS: BUN Creatinine Ratio 15.6 (10-20); Calcium 8.6 mg/dl (8.5-10.1); Creatinine Clr Calc Pharmacy 36.4 ml/min; Est GFR (Non-African American) 41.4; Potassium 3.6 mmol/L (3.5-5.1)
[2019-09-18] MEDS: TIOTROPIUM BROMIDE 5 PUFF/90 MCG INH INH SCH (08:08)
[2019-09-18] MEDS: METOPROLOL TARTRATE 50 MG TAB PO SCH ×2 (08:08→21:23)
[2019-09-18] MEDS: AMLODIPINE BESYLATE 5 MG TAB PO SCH (08:08)
[2019-09-18] MEDS: ALLOPURINOL 300 MG TAB PO SCH (08:08)
[2019-09-18] MEDS: guaiFENesin 600 MG TABCR PO SCH ×2 (08:08→21:23)
[2019-09-18] MEDS: INSULIN ASPART 100 UNITS/ML 3 ML PEN SC SCH ×4 (08:12→20:49)
[2019-09-18] MEDS ORDERED: methylPREDNISolone 40 MG in SYRINGE 0 ML IV SCH (09:00)
[2019-09-18] MEDS ORDERED: INSULIN GLARGINE SOLOSTAR 100 UNITS/ML 3 ML PEN SQ SCH (09:00)
[2019-09-18] MEDS: AMOXICILLIN/CLAVULANATE 875 MG TAB PO SCH ×2 (10:39→18:23)
--- NOTE | 2019-09-18 18:23 | Pulmonology Progress Note ---
Date of Service September 18, 2019 Patient is an 84-year-old male with advanced obstructive lung disease and chronic hypoxemic respiratory failure. He is been admitted on multiple occasions for progressive respiratory decline. He presented to the hospital with continued shortness of breath after being recently admitted to [facility]. He states that while there he was discharged on what sounds like a trilogy nocturnal ventilator. He had difficulty tolerating it was only able to use it for a few minutes at a time. He followed up with ROSELINE Carmichael 2 days ago was placed on Levaquin and prednisone. His symptoms did not improve significantly which prompted him to seek attention in the emergency room where he was admitted. He had a repeat CT scan showing evidence of fluid-filled bullae as well as a patchy left lower lobe airspace opacity. He states he has been using his inhalers at home but is unclear if they are offering him a clinical benefit. Acute on chronic respiratory failure with hypoxia and hypercapnia: Dr Rivas's consultation noted Impression: 84-year-old male with advanced obstructive lung disease/emphysema and acute on chronic hypoxemic respiratory failure with a history of hypercarbic respiratory failure admitted now with air-fluid levels and multiple bullae suggestive of infected bullae and possible pneumonia. Recommendations: 1. Infected bullae: These typically require prolonged courses of antibiotics, often 2 to 4 weeks. Would recommend Augmentin given the questionable aspiration events when the patient is okay to transition to oral antibiotics. Follow-up imaging should be performed in a few weeks. 2. Advanced obstructive lung disease with associated dyspnea: Unclear if the patient has adequate pulmonary reserve to tolerate MDIs or DPI's. We will place him on a trial of Perforomist and continue Spiriva for now. Could consider chronic azithromycin therapy in the outpatient setting but would need his acute infection adequately addressed and treated prior to consideration. He does not appear overtly bronchospastic currently and I would not recommend high-dose steroids. 3. History of hypercarbia: The patient has what sounds like a trilogy nocturnal ventilator at home. It is been extraordinarily difficult for him to tolerate at home and is only been able to use it for a few minutes at a time. We could consider BiPAP at night as I suspect he may have some component of dynamic airway collapse based on his history. We will see how he does with nebulizers a flutter valve and Mucinex for now. I think the risks of bronchoscopy outweigh potential benefit in this patient. 4. Advised the patient and his son that his lung disease is a quite advanced stage. He agrees that intubation mechanical ventilation would not be in his best long-term interest. We will see what we can accomplish with adjustment of his medications but certainly discussions approaching end-of-life issues may be appropriate. We will continue to follow. (2) COPD exacerbation: (3) COPD exacerbation: (4) Pneumonia: Patient has had difficulty expectorating. He has exhibited hemoptysis this admission and is very weak. Assessment & Plan (1) Acute on chronic respiratory failure with hypoxia and hypercapnia: Impression: 84-year-old male with advanced obstructive lung disease/emphysema and acute on chronic hypoxemic respiratory failure with a history of hypercarbic respiratory failure admitted now with air-fluid levels and multiple bullae suggestive of infected bullae and possible pneumonia. Recommendations: 1. Infected bullae: These typically require prolonged courses of antibiotics, often 2 to 4 weeks. Would recommend Augmentin given the questionable aspiration events when the patient is okay to transition to oral antibiotics. Follow-up imaging should be performed in a few weeks. 2. Advanced obstructive lung disease with associated dyspnea: Unclear if the patient has adequate pulmonary reserve to tolerate MDIs or DPI's. We will place him on a trial of Perforomist and continue Spiriva for now. Could consider chronic azithromycin therapy in the outpatient setting but would need his acute infection adequately addressed and treated prior to consideration. He does not appear overtly bronchospastic currently and I would not recommend high-dose steroids. 3. History of hypercarbia: The patient has what sounds like a trilogy nocturnal ventilator at home. It is been extraordinarily difficult for him to tolerate at home and is only been able to use it for a few minutes at a time. We could consider BiPAP at night as I suspect he may have some component of dynamic airway collapse based on his history. We will see how he does with nebulizers a flutter valve and Mucinex for now. I think the risks of bronchoscopy outweigh potential benefit in this patient. 4. Advised the patient and his son that his lung disease is a quite advanced stage. He agrees that intubation mechanical ventilation would not be in his best long-term interest. We will see what we can accomplish with adjustment of his medications but certainly discussions approaching end-of-life issues may be appropriate. (2) Pneumonia: (3) COPD exacerbation: (4) CKD (chronic kidney disease), stage III: (5) Paroxysmal atrial fibrillation: (6) Chronic diastolic heart failure: (7) Pulmonary hypertension: (8) Hx of pulmonary aspiration: (9) S/P coronary artery stent placement: (10) Hemoptysis: Patient clearly has evidence for infected bulla with numerous air-fluid levels and a pneumonitis. He has had trouble tolerating noninvasive positive pressure ventilation both as an outpatient and here in the hospital. I agree with the current selection of antibiotic and the length of its course but I do not believe patient would benefit or tolerate further aggressive intervention i.e. bronchoscopy with BAL. Review of Systems Constitutional: no problem reported Eyes: no problem reported Ear, Nose, Mouth, Throat: no problem reported Respiratory: no problem reported Cardiovascular: no problem reported Gastrointestinal: no problem reported Genitourinary: no problem reported Musculoskeletal: no problem reported Integumentary: no problem reported Neurologic: no problem reported Psychiatric: no problem reported Endocrine: no problem reported Hematologic / Lymphatic: no problem reported Allergy / Immunological: no problem reported Physical Exam Constitutional: well developed and well nourished; no acute distress Eyes: PERRL, conjunctivae normal, anicteric sclerae ENMT: external ear and nose normal, oropharynx normal Neck: trachea midline, no thyromegaly Respiratory: normal respiratory effort, + hyperresonance to percussion and + prolonged expiratory phase Auscultation: + wheezes (Wheezes left greater than right) Cardiovascular: RRR, no murmur, no edema Palpation: normal PMI; no thrill Gastrointestinal (Abdomen): normal bowel sounds, soft, nontender, no hepatosplenomegaly Musculoskeletal: no cyanosis or clubbing, extremities motor strength 5/5 Gait: normal gait Skin: no rashes, warm and dry Neurologic: PERRL, EOMI, accommodation nl, no face palsy, no dysarthria Psychiatric: A+Ox3, euthymic affect Lymphatic: no cervical or axillary lymphadenopathy Results & Data Vital Signs (Past 12 Hours) Vital Signs Temp Pulse Resp BP Pulse Ox 09/18/19 15:20 36.4 C L 72 16 136/73 93 09/18/19 12:47 70 18 94 09/18/19 11:33 36.2 C L 68 20 133/83 98 09/18/19 07:18 36.3 C L 66 18 157/84 H 93 09/18/19 06:57 65 18 93 PG Care Time/CCT Total # of Minutes Spent Total Time Spent with Patient: Total time spent is greater than 50% in coordination of care (as documented) at patient's floor/unit and/or counseling patient:
--- NOTE | 2019-09-18 18:33 | Hospitalist Progress Note ---
Date of Service September 18, 2019 Assessment & Plan (1) COPD exacerbation: Trial of formoterol and Spiriva now. Nebulized saline. Budesonide twice daily. Systemic steroids not recommended. Continue treatment for infection as above. Continue scheduled nebulizers. (2) Pneumonia: Recent hospitalization at [facility] and multiple hospitalizations prior to that. As patient is clinically improved we will switch Zosyn to Augmentin. Consideration was given to aspiration however, patient passes video swallow study. He is well-known to speech pathology and will continue to use there modified maneuvers. Per pulmonology patient appears to have infected bullae. This will require prolonged antibiotics. Scant hemoptysis has been noted by patient but this is not persistent or copious. Follow-up with pulmonology closely as an outpatient is recommended. (3) CKD (chronic kidney disease), stage III: Chronic/stable. Trend BMP. Avoid nephrotoxic medications. Renally dose meds as needed. (4) Paroxysmal atrial fibrillation: Rate controlled with Lopressor. Eliquis initially held on admission. Will restart now. (5) CAD (coronary artery disease): Aspirin initially held in setting of questionable hemoptysis. Will restart this now and continue medical management for CAD which is appears stable. Continue home lisinopril, Lopressor. We will also restart home statin at this point. (6) Dependence on continuous supplemental oxygen: Secondary to COPD. Continue supplemental oxygen as needed to maintain oxygen saturation 88 to 92%. (7) Chronic diastolic heart failure: Stable, euvolemic. Restart daily Lasix at 40 mg (home dose of Lasix to 60 mg). (8) Prediabetes: Recent hemoglobin A1c 6.2. Initially started on NovoLog with carb coverage and correction factor in addition to small dose of Lasix. Perhaps anticipated steroid use which is not recommended per pulmonology. We will backed this down to NovoLog with correction factor only. Continue blood sugar checks qACHS (9) Hx MRSA infection: Contact isolation. (10) DVT prophylaxis: SCDs/plan to restart Eliquis. Conditional code okay with CPR and cardiac defibrillation, no intubation. Dispo-plan for home when medically stable, PT/OT to assess safety for return home Darlene Stokes DO [facility] Hospitalist Subjective reports feeling worse but this is based on a coughing fit that occurred after he started moving after dinner after a prolonged period of sitting. Overall, the day has been better though. We briefly discussed the pulmonary plan. Family was at bedside and all questions answered. Noted patient did not have a flutter valve; states he uses one at home so this was ordered. I obtained a sputum sample at the bedside and sent it to the lab. Review of Systems Review of Systems: All systems reviewed & are unremarkable except as noted in HPI & below Physical Exam Physical Exam: CONSTITUTIONAL: WNWD, elderly, vitals as above, generally well-appearing EYES: normal conjunctivae, no scleral icterus ENT: MMM RESPIRATORY: clear to auscultation bilaterally, diminished breath sounds throughout, no crackles, rales or wheezes, normal respiratory effort, no conversational dyspnea CARDIOVASCULAR: regular rate and rhythm, S1 and 2 heard without murmurs, gallops or rubs, no JVD, no peripheral edema, no carotid bruits GASTROINTESTINAL: soft, nontender, nondistended MUSCULOSKELETAL: strength 5/5 throughout, head is normocephalic and atraumatic SKIN: warm and dry NEUROLOGIC: CN 2-12 grossly intact, normal cognition, no gross focal deficits. PSYCHIATRIC: alert cooperative and oriented to person, place and time. Results & Data Vital Signs (Past 12 Hours) Vital Signs Temp Pulse Resp BP Pulse Ox 09/18/19 15:20 36.4 C L 72 16 136/73 93 09/18/19 12:47 70 18 94 09/18/19 11:33 36.2 C L 68 20 133/83 98 09/18/19 07:18 36.3 C L 66 18 157/84 H 93 09/18/19 06:57 65 18 93 Laboratory Results Short CBC 09/18/19 Range/Units 06:43 WBC 5.34 (4.8-10.8) K/uL Hgb 10.5 L (14.0-18.0) g/dL Hct 34.0 L (42-52) % Plt Count 180 (130-400) K/uL BMP 09/18/19 06:43 Sodium 141 Potassium 3.6 Chloride 105 Carbon Dioxide 34 H BUN 24 H Creatinine 1.53 H Glucose 90 Calcium 8.6 Medications Administered Current Inpatient Medications Acetaminophen (Tylenol) 650 mg PO Q4H PRN PRN Reason: Pain or Fever Stop: 10/17/19 08:30 Allopurinol (Zyloprim) 300 mg PO QAM [facility] Stop: 10/17/19 08:59 Last Admin: 09/18/19 08:08 Dose: 300 mg Documented by: Amlodipine Besylate (Norvasc) 5 mg PO QAM [facility] Stop: 10/17/19 08:59 Last Admin: 09/18/19 08:08 Dose: 5 mg Documented by: Amoxicillin/Clavulanate Potassium (Augmentin 875mg) 1 tab PO BIDM [facility] Stop: 09/25/19 09:34 Last Admin: 09/18/19 18:23 Dose: 1 tab Documented by: Benzonatate (Tessalon Perle) 100 mg PO TID PRN PRN Reason: Cough Stop: 10/17/19 08:30 Last Admin: 09/17/19 20:42 Dose: 100 mg Documented by: Budesonide (Pulmicort Respules) 0.5 mg NEB BIDR [facility] Stop: 10/17/19 18:59 Last Admin: 09/18/19 06:57 Dose: 0.5 mg Documented by: Dextrose (Dextrose 50%) 25 - 50 ml IV UD PRN; Protocol PRN Reason: Hypoglycemia Protocol Stop: 10/17/19 08:30 Donepezil HCl (Aricept) 5 mg PO HS [facility] Stop: 10/17/19 20:59 Last Admin: 09/17/19 20:43 Dose: 5 mg Documented by: Formoterol Fumarate (Perforomist) 20 mcg NEB BIDR [facility] Stop: 10/17/19 18:59 Last Admin: 09/18/19 06:57 Dose: 20 mcg Documented by: Glucagon (Glucagen) 1 mg SQ UD PRN; Protocol PRN Reason: Hypoglycemia Protocol Stop: 10/17/19 08:30 Glucose (Dex4 Glucose) 4 - 8 tabs PO UD PRN; Protocol PRN Reason: Hypoglycemia Protocol Stop: 10/17/19 08:30 Glucose (Glucose 40%) 15 - 30 gm PO UD PRN; Protocol PRN Reason: Hypoglycemia Protocol Stop: 10/17/19 08:30 Guaifenesin (Mucinex) 1,200 mg PO Q12 [facility] Stop: 10/17/19 20:59 Last Admin: 09/18/19 08:08 Dose: 1,200 mg Documented by: Hydromorphone HCl (Dilaudid) 0.25 mg IV Q3H PRN PRN Reason: Pain Stop: 10/01/19 08:30 Promethazine HCl 12.5 mg/ (Sodium Chloride) 50.5 mls @ 202 mls/hr IV Q6H PRN PRN Reason: Nausea And Vomiting Stop: 10/17/19 08:30 Insulin Aspart (Novolog Flexpen) 0 units SC ACHS [facility] Stop: 10/17/19 08:30 Last Admin: 09/18/19 18:10 Dose: 3 units Documented by: Insulin Glargine (Lantus Solostar Pen) 5 units SQ DAILY [facility] Stop: 10/18/19 08:59 Last Admin: 09/18/19 08:10 Dose: 5 units Documented by: Ipratropium [place] (Atrovent 0.02% 0.5mg/2.5ml) 0.5 mg INH Q6R [facility] Stop: 10/17/19 08:30 Last Admin: 09/18/19 12:47 Dose: 0.5 mg Documented by: Levalbuterol HCl (Xopenex 1.25mg/0.5ml Neb) 1.25 mg INH Q6R [facility] Stop: 10/17/19 08:30 Last Admin: 09/18/19 12:46 Dose: 1.25 mg Documented by: Levothyroxine Sodium (Synthroid) 50 mcg PO DAILYBB [facility] Stop: 10/17/19 08:59 Last Admin: 09/18/19 05:56 Dose: 50 mcg Documented by: Lisinopril (Zestril) 5 mg PO HS [facility] Stop: 10/17/19 20:59 Last Admin: 09/17/19 20:41 Dose: 5 mg Documented by: Metoprolol Tartrate (Lopressor) 50 mg PO BID [facility] Stop: 10/17/19 08:59 Last Admin: 09/18/19 08:08 Dose: 50 mg Documented by: Miscellaneous (Carbohydrates For Hypoglycemia) 15 - 30 gm PO UD PRN PRN Reason: Hypoglycemia Protocol Stop: 10/17/19 08:30 Sodium Chloride (Sodium Chlor 7% Neb Solution) 4 ml NEB BIDR [facility] Stop: 10/17/19 18:59 Last Admin: 09/18/19 06:57 Dose: 4 ml Documented by: Tiotropium [place] (Spiriva) 1 puffs INH QAM [facility] Stop: 10/17/19 16:59 Last Admin: 09/18/19 08:08 Dose: 1 puffs Documented by: Tramadol HCl (Ultram) 25 mg PO Q4H PRN PRN Reason: Pain Stop: 10/17/19 08:30
[2019-09-18] MEDS: LISINOPRIL 5 MG TAB PO SCH (21:22)
[2019-09-18] MEDS: DONEPEZIL HCL 5 MG TAB PO SCH (21:23)
[2019-09-19] MEDS: LEVALBUTEROL 1.25MG/0.5ML NEB INH SCH ×4 (01:26→19:05)
[2019-09-19] MEDS: IPRATROPIUM BROMIDE NEB SOLN 0.02% 2.5 ML VIAL INH SCH ×4 (01:29→19:05)
[2019-09-19] MEDS: BENZONATATE 100 MG CAPSULE PO PRN (05:55)
[2019-09-19] MEDS: LEVOTHYROXINE SODIUM 50 MCG TABLET PO SCH (05:55)
[2019-09-19] MEDS: FORMOTEROL 20 MCG/2 ML VIAL NEB SCH ×2 (07:09→19:30)
[2019-09-19] MEDS: BUDESONIDE 0.5 MG/2 ML VIAL (PULMICORT) NEB SCH ×2 (07:09→19:30)
[2019-09-19] MEDS: SODIUM CHLOR 7% 4 ML NEB NEB SCH ×2 (07:09→19:30)
[2019-09-19] MEDS: guaiFENesin 600 MG TABCR PO SCH ×2 (08:20→20:11)
[2019-09-19] MEDS: AMLODIPINE BESYLATE 5 MG TAB PO SCH (08:20)
[2019-09-19] MEDS: AMOXICILLIN/CLAVULANATE 875 MG TAB PO SCH ×2 (08:20→17:52)
[2019-09-19] MEDS: METOPROLOL TARTRATE 50 MG TAB PO SCH ×2 (08:21→20:12)
[2019-09-19] MEDS: ALLOPURINOL 300 MG TAB PO SCH (08:21)
[2019-09-19] MEDS: TIOTROPIUM BROMIDE 5 PUFF/90 MCG INH INH SCH (08:21)
[2019-09-19] MEDS: INSULIN ASPART 100 UNITS/ML 3 ML PEN SC SCH ×4 (08:49→20:32)
[2019-09-19] MEDS: APIXABAN 2.5 MG TAB PO SCH ×2 (10:29→20:12)
[2019-09-19] MEDS: FUROSEMIDE 40 MG TAB PO SCH (10:29)
[2019-09-19] MEDS: POTASSIUM CHLORIDE 10 MEQ TABCR PO SCH (10:29)
--- NOTE | 2019-09-19 15:19 | Hospitalist Progress Note ---
Date of Service September 19, 2019 Assessment & Plan (1) COPD exacerbation: Trial of formoterol and Spiriva now. Nebulized saline. Budesonide twice daily. Systemic steroids not recommended. Doing well on Augmentin which will need to be continued for 4 weeks in setting of infected bullae. Video swallow study for ? aspiration was negative. (2) Pneumonia: Recent hospitalization at [facility] and multiple hospitalizations prior to that. Augmentin above. Per pulmonology patient appears to have infected bullae. This will require prolonged antibiotics. Scant hemoptysis has been noted by patient but this is not persistent or copious. Follow-up with pulmonology closely as an outpatient is recommended. Blood thinners restarted. (3) CKD (chronic kidney disease), stage III: Chronic/stable. Trend BMP. Avoid nephrotoxic medications. Renally dose meds as needed. (4) Paroxysmal atrial fibrillation: Rate controlled with Lopressor. Eliquis restarted but at lower dose in setting of age and kidney disease. (5) CAD (coronary artery disease): Continue medical management for CAD per home regimen including aspirin, lisinopril, Lopressor, statin. (6) Dependence on continuous supplemental oxygen: Secondary to COPD. Continue supplemental oxygen as needed to maintain ox ygen saturation 88 to 92%. (7) Chronic diastolic heart failure: Stable, euvolemic. Restart Lasix (8) Prediabetes: Recent hemoglobin A1c 6.2. Initially started on NovoLog with carb coverage and correction factor. Removed carb coverage and doing well. Stopped glargine. cont monitoring blood glucose in the hospital. (9) Hx MRSA infection: Contact isolation. (10) DVT prophylaxis: Eliquis Conditional code okay with CPR and cardiac defibrillation, no intubation. Dispo-plan for home when medically stable, PT/OT to assess safety for return home. Encouraged ambulation as part of pulmonary toilet efforts and discussed this with nursing staff. Darlene Stokes DO [facility] Hospitalist Subjective Feels improved from a breathing standpoint today coughing is improved. No f tayo or chills. Encouraged ambulation. Family is present and will assist with walking. He is unsure if the nebulizer therapies are helping him. He has notably remained off steroids the past few days and continue to improve. Review of Systems Review of Systems: All systems reviewed & are unremarkable except as noted in HPI & below Physical Exam Physical Exam: CONSTITUTIONAL: WNWD, elderly, vitals as above, generally well-appearing EYES: normal conjunctivae, no scleral icterus ENT: MMM RESPIRATORY: some mild wheezing throughout, improved air movement on auscultation. Normal respiratory effort, no conversational dyspnea CARDIOVASCULAR: regular rate and rhythm, S1 and 2 heard without murmurs, gallops or rubs, no JVD, no peripheral edema GASTROINTESTINAL: soft, nontender, nondistended MUSCULOSKELETAL: strength 5/5 throughout, head is normocephalic and atraumatic SKIN: warm and dry NEUROLOGIC: CN 2-12 grossly intact, normal cognition, no gross focal deficits. PSYCHIATRIC: alert cooperative and oriented to person, place and time. Results & Data Vital Signs (Past 12 Hours) Vital Signs Temp Pulse Resp BP Pulse Ox 09/19/19 13:16 75 18 93 09/19/19 11:32 36.2 C L 68 20 130/67 96 09/19/19 07:38 36.9 C 72 20 156/77 H 94 09/19/19 07:10 71 18 95 09/19/19 03:21 36.7 C 71 19 152/83 H 90 Medications Administered Current Inpatient Medications Acetaminophen (Tylenol) 650 mg PO Q4H PRN PRN Reason: Pain or Fever Stop: 10/17/19 08:30 [facility] ([facility]rim) [facility] [place] Stop: 10/17/19 08:59 Last Admin: 09/19/19 08:21 Dose: 300 mg Documented by: Amlodipine Besylate (Norvasc) 5 [facility] [place] Stop: 10/17/19 08:59 Last Admin: 09/19/19 08:20 Dose: 5 mg Documented by: Amoxicillin/Clavulanate Potassium (Augmentin 875mg) [address] [facility] Stop: 09/25/19 09:34 Last Admin: 09/19/19 08:20 Dose: 1 tab Documented by: Apixaban (Eliquis) 2.[address] [facility] Stop: 10/19/19 09:59 Last Admin: 09/19/19 10:29 Dose: 2.5 mg Documented by: Aspirin (Ecotrin Ectab) 81 mg PO [facility] Stop: 10/19/19 20:59 Benzonatate (Tessalon Perle) 100 mg PO TID PRN PRN Reason: Cough Stop: 10/17/19 08:30 Last Admin: 09/19/19 05:55 Dose: 100 mg Documented by: Budesonide (Pulmicort Respules) 0.5 mg NEB BIDR [facility] Stop: 10/17/19 18:59 Last Admin: 09/19/19 07:09 Dose: 0.5 mg Documented by: Dextrose (Dextrose 50%) 25 - 50 ml IV UD PRN; Protocol PRN Reason: Hypoglycemia Protocol Stop: 10/17/19 08:30 Donepezil HCl (Aricept) [address] [facility] Stop: 10/17/19 20:59 Last Admin: 09/18/19 21:23 Dose: 5 mg Documented by: Formoterol Fumarate (Perforomist) 20 mcg NEB BIDR [facility] Stop: 10/17/19 18:59 Last Admin: 09/19/19 07:09 Dose: 20 mcg Documented by: Furosemide (Lasix) [address] [facility] Stop: 10/19/19 08:59 Last Admin: 09/19/19 10:29 Dose: 40 mg Documented by: Glucagon (Glucagen) 1 mg SQ UD PRN; Protocol PRN Reason: Hypoglycemia Protocol Stop: 10/17/19 08:30 Glucose (Dex4 Glucose) 4 - 8 tabs PO UD PRN; Protocol PRN Reason: Hypoglycemia Protocol Stop: 10/17/19 08:30 Glucose (Glucose 40%) 15 - 30 gm PO UD PRN; Protocol PRN Reason: Hypoglycemia Protocol Stop: 10/17/19 08:30 Guaifenesin (Mucinex) 1,[address] [facility] Stop: 10/17/19 20:59 Last Admin: 09/19/19 08:20 Dose: 1,200 mg Documented by: Hydromorphone HCl (Dilaudid) 0.25 mg IV Q3H PRN PRN Reason: Pain Stop: 10/01/19 08:30 Promethazine HCl 12.5 mg/ (Sodium Chloride) 50.5 mls @ 202 mls/hr IV Q6H PRN PRN Reason: Nausea And Vomiting Stop: 10/17/19 08:30 Insulin Aspart (Novolog Flexpen) [address] [facility] Stop: 10/17/19 08:30 Last Admin: 09/19/19 12:06 Dose: Not Given Documented by: Ipratropium [place] (Atrovent 0.02% 0.5mg/2.5ml) [address] [facility] Stop: 10/17/19 08:30 Last Admin: 09/19/19 13:16 Dose: 0.5 mg Documented by: Levalbuterol HCl (Xopenex 1.25mg/0.5ml Neb) 1.[address] [facility] Stop: 10/17/19 08:30 Last Admin: 09/19/19 13:16 Dose: 1.25 mg Documented by: Levothyroxine Sodium (Synthroid) [address] [facility] Stop: 10/17/19 08:59 Last Admin: 09/19/19 05:55 Dose: 50 mcg Documented by: Lisinopril (Zestril) [address] [facility] Stop: 10/17/19 20:59 Last Admin: 09/18/19 21:22 Dose: 5 mg Documented by: Metoprolol Tartrate (Lopressor) [address] [facility] Stop: 10/17/19 08:59 Last Admin: 09/19/19 08:21 Dose: 50 mg Documented by: Miscellaneous (Carbohydrates For Hypoglycemia) 15 - 30 gm PO UD PRN PRN Reason: Hypoglycemia Protocol Stop: 10/17/19 08:30 Potassium Chloride (Klor-Con M10) [address] [facility] Stop: 10/19/19 08:59 Last Admin: 09/19/19 10:29 Dose: 10 meq Documented by: Pravastatin Sodium (Pravachol) [address] [facility] Stop: 10/19/19 20:59 Sodium Chloride (Sodium Chlor 7% Neb Solution) [address] [facility] Stop: 10/17/19 18:59 Last Admin: 09/19/19 07:09 Dose: 4 ml Documented by: Tiotropium [place] (Spiriva) [address] [facility] Stop: 10/17/19 16:59 Last Admin: 09/19/19 08:21 Dose: 1 puffs Documented by: Tramadol HCl (Ultram) 25 mg PO Q4H PRN PRN Reason: Pain Stop: 10/17/19 08:30
--- NOTE | 2019-09-19 15:22 | Pulmonology Progress Note ---
Date of Service September 19, 2019 Patient is an 84-year-old male with advanced obstructive lung disease and chronic hypoxemic respiratory failure. He is been admitted on multiple occasions for progressive respiratory decline. He presented to the hospital with continued shortness of breath after being recently admitted to [facility]. He states that while there he was discharged on what sounds like a trilogy nocturnal ventilator. He had difficulty tolerating it was only able to use it for a few minutes at a time. He followed up with ROSELINE Carmichael 2 days ago was placed on Levaquin and prednisone. His symptoms did not improve significantly which prompted him to seek attention in the emergency room where he was admitted. He had a repeat CT scan showing evidence of fluid-filled bullae as well as a patchy left lower lobe airspace opacity. He states he has been using his inhalers at home but is unclear if they are offering him a clinical benefit. Acute on chronic respiratory failure with hypoxia and hypercapnia: Dr Rivas's consultation noted Impression: 84-year-old male with advanced obstructive lung disease/emphysema and acute on chronic hypoxemic respiratory failure with a history of hypercarbic respiratory failure admitted now with air-fluid levels and multiple bullae suggestive of infected bullae and possible pneumonia. Recommendations: 1. Infected bullae: These typically require prolonged courses of antibiotics, often 2 to 4 weeks. Would recommend Augmentin given the questionable aspiration events when the patient is okay to transition to oral antibiotics. Follow-up imaging should be performed in a few weeks. 2. Advanced obstructive lung disease with associated dyspnea: Unclear if the patient has adequate pulmonary reserve to tolerate MDIs or DPI's. We will place him on a trial of Perforomist and continue Spiriva for now. Could consider chronic azithromycin therapy in the outpatient setting but would need his acute infection adequately addressed and treated prior to consideration. He does not appear overtly bronchospastic currently and I would not recommend high-dose steroids. 3. History of hypercarbia: The patient has what sounds like a trilogy nocturnal ventilator at home. It is been extraordinarily difficult for him to tolerate at home and is only been able to use it for a few minutes at a time. We could consider BiPAP at night as I suspect he may have some component of dynamic airway collapse based on his history. We will see how he does with nebulizers a flutter valve and Mucinex for now. I think the risks of bronchoscopy outweigh potential benefit in this patient. 4. Advised the patient and his son that his lung disease is a quite advanced stage. He agrees that intubation mechanical ventilation would not be in his best long-term interest. We will see what we can accomplish with adjustment of his medications but certainly discussions approaching end-of-life issues may be appropriate. We will continue to follow. (2) COPD exacerbation: (3) COPD exacerbation: (4) Pneumonia: Patient has had difficulty expectorating. He has exhibited hemoptysis this admission and is very weak. Patient feels slightly improved today less dyspneic less congested and is sleeping better. Have been receiving physical therapy and home health nursing prior to coming into the hospital and would like to continue to do so once discharged. Assessment & Plan (1) Hemoptysis: (2) Pneumonia: Continue to treat patient for infected bullae. I have explained the difficulties in treating this process in a man his age with his underlying lung disease. Nevertheless I feel there is been some slight improvement over the past 24 hours and will continue current therapy. (3) COPD exacerbation: (4) Acute on chronic respiratory failure with hypoxia and hypercapnia: (5) CKD (chronic kidney disease), stage III: (6) Paroxysmal atrial fibrillation: (7) CAD (coronary artery disease): (8) Hx MRSA infection: (9) Dependence on continuous supplemental oxygen: (10) Pulmonary hypertension: Review of Systems Constitutional: no problem reported Eyes: no problem reported Ear, Nose, Mouth, Throat: no problem reported Respiratory: no problem reported Cardiovascular: no problem reported Gastrointestinal: no problem reported Genitourinary: no problem reported Musculoskeletal: no problem reported Integumentary: no problem reported Neurologic: no problem reported Psychiatric: no problem reported Endocrine: no problem reported Hematologic / Lymphatic: no problem reported Allergy / Immunological: no problem reported Physical Exam Constitutional: well developed and well nourished; no acute distress Eyes: PERRL, conjunctivae normal, anicteric sclerae ENMT: external ear and nose normal, oropharynx normal Neck: trachea midline, no thyromegaly Respiratory: normal respiratory effort, + hyperresonance to percussion and + prolonged expiratory phase Auscultation: + wheezes (Scattered rhonchi left base) Cardiovascular: RRR, no murmur, no edema Palpation: normal PMI; no thrill Gastrointestinal (Abdomen): normal bowel sounds, soft, nontender, no hepatosplenomegaly Musculoskeletal: no cyanosis or clubbing, extremities motor strength 5/5 Gait: normal gait Skin: no rashes, warm and dry Neurologic: PERRL, EOMI, accommodation nl, no face palsy, no dysarthria Psychiatric: A+Ox3, euthymic affect Lymphatic: no cervical or axillary lymphadenopathy Results & Data Vital Signs (Past 12 Hours) Vital Signs Temp Pulse Resp BP Pulse Ox 09/19/19 13:16 75 18 93 09/19/19 11:32 36.2 C L 68 20 130/67 96 09/19/19 07:38 36.9 C 72 20 156/77 H 94 09/19/19 07:10 71 18 95 09/19/19 03:21 36.7 C 71 19 152/83 H 90 PG Care Time/CCT Total # of Minutes Spent Total Time Spent with Patient: Total time spent is greater than 50% in coordination of care (as documented) at patient's floor/unit and/or counseling patient:
[2019-09-19] MEDS: PRAVASTATIN SOD 40 MG TAB PO SCH (20:10)
[2019-09-19] MEDS: LISINOPRIL 5 MG TAB PO SCH (20:11)
[2019-09-19] MEDS: ASPIRIN 81 MG ECTAB PO SCH (20:11)
[2019-09-19] MEDS: DONEPEZIL HCL 5 MG TAB PO SCH (20:12)
[2019-09-20] MEDS: IPRATROPIUM BROMIDE NEB SOLN 0.02% 2.5 ML VIAL INH SCH ×4 (00:40→19:00)
[2019-09-20] MEDS: LEVALBUTEROL 1.25MG/0.5ML NEB INH SCH ×4 (00:41→19:00)
[2019-09-20] MEDS: BENZONATATE 100 MG CAPSULE PO PRN (05:56)
[2019-09-20] MEDS: LEVOTHYROXINE SODIUM 50 MCG TABLET PO SCH (05:56)
[2019-09-20] MEDS: SODIUM CHLOR 7% 4 ML NEB NEB SCH ×2 (07:07→19:02)
[2019-09-20] MEDS: BUDESONIDE 0.5 MG/2 ML VIAL (PULMICORT) NEB SCH ×2 (07:07→19:51)
[2019-09-20] MEDS: FORMOTEROL 20 MCG/2 ML VIAL NEB SCH ×2 (07:07→19:51)
[2019-09-20] MEDS: FUROSEMIDE 40 MG TAB PO SCH (07:43)
[2019-09-20] MEDS: METOPROLOL TARTRATE 50 MG TAB PO SCH ×2 (07:43→20:50)
[2019-09-20] MEDS: POTASSIUM CHLORIDE 10 MEQ TABCR PO SCH (07:44)
[2019-09-20] MEDS: APIXABAN 2.5 MG TAB PO SCH ×2 (07:44→20:50)
[2019-09-20] MEDS: AMOXICILLIN/CLAVULANATE 875 MG TAB PO SCH ×2 (07:44→19:00)
[2019-09-20] MEDS: guaiFENesin 600 MG TABCR PO SCH ×2 (07:44→20:50)
[2019-09-20] MEDS: TIOTROPIUM BROMIDE 5 PUFF/90 MCG INH INH SCH (07:45)
[2019-09-20] MEDS: AMLODIPINE BESYLATE 5 MG TAB PO SCH (07:45)
[2019-09-20] MEDS: ALLOPURINOL 300 MG TAB PO SCH (07:45)
[2019-09-20] MEDS: INSULIN ASPART 100 UNITS/ML 3 ML PEN SC SCH ×2 (08:28→12:46)
[2019-09-20 08:49] LABS: Creatinine Clr Calc Pharmacy 42.4 ml/min; Est GFR (African American) 57.9
--- NOTE | 2019-09-20 11:37 | Palliative Care Consultation ---
Date of Consultation September 20, 2019 Assessment & Plan (1) Palliative care encounter: This is an 84 year old male who presented to the hospital from home with increased weakness. He has had multiple recent hospitalizations between [facility] and [facility]; most recently for a COPD exacerbation secondary to HCAP. Additional PMH includes diastolic CHF EF 70% BERNARD 2019, CAD s/p stent, HTN, AAA s/p surgery, CVA, CRF stage IV, anemia secondary to CKD, pre-diabetes and COPD oxygen dependant at home, 3LNC. The patient had a repeat CT scan showing evidence of fluid-filled bullae as well as a patchy left lower lobe airspace opacity, which is being treated with antibiotics over the next 2-4 week timeframe. he is also being treated with Performist and Spiriva. He has been given a Triology at home, but did not tolerate it well, considered Bipap, but appears patient is nearing appropriateness for end of life conversations. Per pulmonary, his lung disease is end-stage with poor prognosis. Palliative Care was consulted to discuss Goals of Care. -I met with the patient in room 254; his son, Korey whom he lives with, was also at the bedside. -We discussed his current disease progression and he stated he is feeling 'really good right now'. He does understand that his abx course is now extended due to the nature of his infection. -The patient was AAO x4 and he was able to tell me what was occurring medically. -We discussed code status and he is listed as a Conditional Code. We discussed CPR, cardioversion, defibrillation and he was clear that he does not want intubated. We talked about how typically CPR/intubation go hand in hand. The patient on his own said, " well, if that's the case, I'd rather without that heroic measure" but then he said "If there is a chance, go for it". Korey, his son was at the bedside and said "I understand and agree with a DNR, but let me talk to him and make sure he understands. No changes in code status orders at this time. -The patient does live at home with his son and DIL, but they both work during the day. Home health was providing support with most of his ADL needs. -I have concerns about him returning home without support. His son said he gets his his oxygen tangled in his walker, so we talked about private caregiver support and case management aware to provide a list of private caregiver options. Alternatively, a SNF is another option. Pt son states he would like to return home. -The patient has had Home Health with [facility] before and liked their staff; however, says "It's too much for me when they run me around the house"; we discussed Hospice and what that entails, appears this will be a good fit for the patient and family, but the patients son wants to discuss further and have a meeting with Hospice, no times available; however, due to working schedules. T his may be better transitioned at home, especially since they have [facility] and that can be transitioned easily. We did discuss revocation of hospice services as he is still undecided baout returning to the hospital, but per son, he thinks they will get to the point of focusing on 'less is more' approach and focusing on staying out of the hospital. -I brought a POLST form with me, but did not complete it. The son will hold on to it. Would be helpful to have complete prior to discharge. ELOS likely 1-2 days. -No symptom management needs at this time. Will continue to assess. -PPS: 30% (2) Chronic diastolic heart failure: (3) Pneumonia: (4) CKD (chronic kidney disease), stage III: (5) Hx of pulmonary aspiration: (6) Dependence on continuous supplemental oxygen: Supervising Physician Co-Signing Physician Notes Chart reviewed, collaborated with GISSEL Serna Patient seen and examined in room 254, patient's son, daughter, and son-in-law at bedside. Patient awake alert and able to participate in conversation. PE: No acute distress, on O2 at 2 L nasal cannula HEENT: EOMI, mild NATIVE Respirations: Unlabored, diminished breath sounds bilaterally good air movement, no wheezes CV: Regular rate Abdomen: Soft, nontender Agree with above note, assessment and plan as per GISSEL Serna Reviewed goals of care-both patient and family do not feel that patient would benefit from rehab-would like to go home with home health and transition to hospice. Patient and family reports that patient has done rehab before and did not find it helpful-it only tired him out. Patient would rather return home with home health. History of Present Illness Reason for Consultation: goals of care Requesting Physician: Dr. Stokes Attending Physician: Darlene Stokes, DO History of Present Illness This is an 84 year old male who presented to the hospital from home with increased weakness. He has had multiple recent hospitalizations between [facility] and [facility]; most recently for a COPD exacerbation secondary to HCAP. Additional PMH includes diastolic CHF EF 70% BERNARD 2018, CAD s/p stent, HTN, AAA s/p surgery, CVA, CRF stage IV, anemia secondary to CKD, pre-diabetes and COPD oxygen dependant at home, 3LNC. The patient had a repeat CT scan showing evidence of fluid-filled bullae as well as a patchy left lower lobe airspace opacity, which is being treated with antibiotics over the next 2-4 week timeframe. he is also being treated with Performist and Spiriva. He has been given a Triology at home, but did not tolerate it well, considered Bipap, but appears patient is nearing appropriateness for end of life conversations. Per pulmonary, his lung disease is end-stage with poor prognosis. Palliative Care was consulted to discuss Goals of Care. See A/P for further details. Thank you kindly for involving the palliative care team with this patient. We will follow and continue to assist with decision making. Allergies Allergy/AdvReac Type Severity Reaction Status Date / Time moxifloxacin AdvReac Mild dizziness Verified 09/17/19 02:21 Home Medications Home Medications Medication Instructions Recorded Confirmed Type allopurinol 300 mg PO QAM 12/05/18 09/17/19 History amlodipine 5 mg PO QAM 12/05/18 09/17/19 History aspirin 81 mg PO HS 12/05/18 09/17/19 History donepezil 5 mg PO HS 12/05/18 09/17/19 History levothyroxine 50 mcg PO QAM 12/05/18 09/17/19 History lisinopril 5 mg PO HS 12/05/18 09/17/19 History pravastatin 40 mg PO HS 12/05/18 09/17/19 History metoprolol tartrate 50 mg PO BID 03/19/19 09/17/19 History potassium chloride 10 meq PO QAM 03/19/19 09/17/19 History Oxygen Home #1 ea 07/15/19 09/14/19 History budesonide 0.5 mg/2 mL suspension 2 ml INH BID 09/14/19 09/17/19 History for nebulization levofloxacin 500 mg tablet 500 mg PO DAILY #7 tab 09/14/19 09/17/19 Rx prednisone 10 mg tablet See Rx Instructions PO DAILY #20 09/14/19 09/17/19 Rx tab albuterol sulfate 2.5 mg INHALATION TID 09/17/19 09/17/19 History albuterol sulfate [ProAir 2 puffs INH Q6H PRN 09/17/19 09/17/19 History RespiClick] apixaban [Eliquis] 5 mg PO BID 09/17/19 09/17/19 History furosemide 20 mg PO QAM 09/17/19 09/17/19 History furosemide 40 mg PO QAM 09/17/19 09/17/19 History Patient History Medical History (Updated 09/20/19 @ 11:37 by GISSEL Serna) AAA (abdominal aortic aneurysm) without rupture (Chronic) Benign enlargement of prostate (Chronic) CAD (coronary artery disease) (Chronic) "s/p stent" Chronic diastolic heart failure (Chronic) CKD (chronic kidney disease), stage III (Chronic) Dependence on continuous supplemental oxygen (Chronic) Gout (Chronic) H/O seborrheic keratosis (Chronic) History of CVA (cerebrovascular accident) without residual deficits (Resolved) Hx MRSA infection (Chronic) "per records" Hx of pulmonary aspiration (Chronic) Hypertension (Chronic) Mixed hyperlipidemia (Chronic) Palliative care encounter Paroxysmal atrial fibrillation (Chronic) Pulmonary emphysema (Chronic) Pulmonary hypertension (Chronic) "Moderate on echo 09/2014" Squamous cell carcinoma of lip (Resolved) Surgical History Hx of squamous cell carcinoma excision (Chronic) "upper lip" S/P AAA repair (Chronic) S/P coronary artery stent placement (Chronic) "2005 and 2007" S/P hernia repair (Chronic) S/P knee replacement (Chronic) Family History Other No significant family history Social History Preferred Language: Faroese Communication Ability: Effective Postal Service Mail Processor Required: No Beliefs That Will Affect Care: None marital status: / Current Living Situation: Family Current Living Situation Comment: 3 children current occupational status: retired Feels Safe at Home: Yes Safety Concerns: Feels Safe At This Time Smoking Status: Former smoker Tobacco Type: cigarettes, pipe and cigars ; Cigarettes Per Day: 20 ; Do You Dip or Chew Tobacco: Yes (snuff) ; Smoking End Date: smoking 1990, tobacco 2018 ; Second Hand Exposure: No ; Hx Alcohol Use: Yes Alcohol type: beer Hx Substance Use: No Review of Systems Review of Systems: General: patient denies pain HEENT: Pt denies visual changes, dizziness, hemoptysis. (+) productive cough, yellow phlegm CV: Pt denies chest pain, palpitations Resp: Pt + SOB with activity. + wheezing GI: (-) N/V/D. LBM 09/19 : (-) voiding difficulties Skin: (-) skin changes Psych: (-) depression, (-) suicidal thoughts Physical Exam Constitutional: well developed, well nourished, + frail appearing and cooperative Eyes: PERRL, conjunctivae normal, anicteric sclerae ENMT: external ear and nose normal, oropharynx normal Neck: trachea midline, no thyromegaly Respiratory: Auscultation: + diminished lung sounds and + wheezes Cardiovascular: RRR, no murmur, no edema Gastrointestinal (Abdomen): normal bowel sounds, soft, nontender, no hepatosplenomegaly Skin: + turgor decreased and + dry skin Psychiatric: A+Ox3, euthymic affect Insight: good insight Judgement: good judgement Results & Data Vital Signs (Past 12 Hours) Vital Signs Temp Pulse Resp BP Pulse Ox 09/20/19 07:07 72 18 94 09/20/19 07:00 36.3 C L 69 20 154/82 H 94 09/20/19 03:11 36.2 C L 72 20 141/80 H 95 09/20/19 00:42 71 16 91 PG Care Time/CCT Total # of Minutes Spent Total Time Spent with Patient: Total time spent is greater than 50% in coordination of care (as documented) at patient's floor/unit and/or counseling patient: 100 Time Spent Midlevel Total time spent 100 minutes with > 50% of that time spent assessing the patient, discussing goals of care and discussing a POLST form and code status. Attending Spent 25 minutes in addition to the 100 minutes spent by COMMERCIAL LINES ACCOUNT EXECUTIVE for a total of 125 minutes with greater than 50% of the time spent at bedside reviewing goals of care.
--- NOTE | 2019-09-20 14:25 | Hospitalist Progress Note ---
Date of Service September 20, 2019 Assessment & Plan (1) COPD exacerbation: Trial of formoterol and Spiriva now. Nebulized saline. Budesonide twice daily. Systemic steroids not recommended. Doing well on Augmentin which will need to be continued for 4 weeks in setting of infected bullae. Video swallow study for ? aspiration was negative. Disposition recs per pulmonology. Home hospice consideration given end-stage COPD. (2) Pneumonia: Recent hospitalization at [facility] and multiple hospitalizations prior to that. Augmentin above. Per pulmonology patient appears to have infected bullae. This will require prolonged antibiotics. Scant hemoptysis has been noted by patient but this is not persistent or copious. Follow-up with pulmonology closely as an outpatient is recommended. Blood thinners restarted. (3) CKD (chronic kidney disease), stage III: Chronic/stable. Trend BMP. Avoid nephrotoxic medications. Renally dose meds as needed. (4) Paroxysmal atrial fibrillation: Rate controlled with Lopressor. Eliquis restarted but at lower dose in setting of age and kidney disease. (5) CAD (coronary artery disease): Continue medical management for CAD per home regimen including aspirin, lisinopril, Lopressor, statin. (6) Dependence on continuous supplemental oxygen: Secondary to COPD. Continue supplemental oxygen as needed to maintain oxygen saturation 88 to 92%. (7) Chronic diastolic heart failure: Stable, euvolemic. Restart Lasix (8) Prediabetes: Recent hemoglobin A1c 6.2. All insulin products stopped as patient has been at goal for several days. Blood sugar checks were discontinued. (9) Hx MRSA infection: Contact isolation. (10) DVT prophylaxis: Eliquis Conditional code okay with CPR and cardiac defibrillation, no intubation. Dispo-plan for home when medically stable, PT/OT to assess safety for return home. Encouraged ambulation as part of pulmonary toilet efforts. Darlene Stokes DO [facility] Hospitalist Subjective Doing well today, feeling improved. Ambulated around the hallways last night with a walker which is pretty much his baseline. Discussed disposition with palliative care and pulmonology today and is considering home hospice options with son. Son and daughter in room and family discussion ensued. Review of Systems Review of Systems: All systems reviewed & are unremarkable except as noted in HPI & below Physical Exam Physical Exam: CONSTITUTIONAL: WNWD, elderly, vitals as above, generally well-appearing EYES: normal conjunctivae, no scleral icterus ENT: MMM RESPIRATORY: some mild wheezing throughout, improved air movement on auscultation. Normal respiratory effort, no conversational dyspnea CARDIOVASCULAR: regular rate and rhythm, S1 and 2 heard without murmurs, gallops or rubs, no JVD, no peripheral edema GASTROINTESTINAL: soft, nontender, nondistended MUSCULOSKELETAL: strength 5/5 throughout, head is normocephalic and atraumatic SKIN: warm and dry NEUROLOGIC: CN 2-12 grossly intact, normal cognition, no gross focal deficits. PSYCHIATRIC: alert cooperative and oriented to person, place and time. Results & Data Vital Signs (Past 12 Hours) Vital Signs Temp Pulse Resp BP Pulse Ox 09/20/19 13:27 74 18 95 09/20/19 07:07 72 18 94 09/20/19 07:00 36.3 C L 69 20 154/82 H 94 09/20/19 03:11 36.2 C L 72 20 141/80 H 95 Laboratory Results [facility] 09/20/19 07:57 Creatinine 1.31 Medications Administered Current Inpatient Medications Acetaminophen (Tylenol) 650 mg PO Q4H PRN PRN Reason: Pain or Fever Stop: 10/17/19 08:30 Allopurinol (Zyloprim) 300 mg PO [facility] Stop: 10/17/19 08:59 Last Admin: 09/20/19 07:45 Dose: 300 mg Documented by: Amlodipine Besylate (Norvasc) 5 mg PO QAM [facility] Stop: 10/17/19 08:59 Last Admin: 09/20/19 07:45 Dose: 5 mg Documented by: Amoxicillin/Clavulanate Potassium (Augmentin 875mg) 1 tab PO BIDM [facility] Stop: 09/25/19 09:34 Last Admin: 09/20/19 07:44 Dose: 1 tab Documented by: Apixaban (Eliquis) 2.5 mg PO BID [facility] Stop: 10/19/19 09:59 Last Admin: 09/20/19 07:44 Dose: 2.5 mg Documented by: Aspirin (Ecotrin Ectab) 81 mg PO [facility] Stop: 10/19/19 20:59 Last Admin: 09/19/19 20:11 Dose: 81 mg Documented by: Benzonatate (Tessalon Perle) 100 mg PO TID PRN PRN Reason: Cough Stop: 10/17/19 08:30 Last Admin: 09/20/19 05:56 Dose: 100 mg Documented by: Budesonide (Pulmicort Respules) 0.5 mg NEB BIDR [facility] Stop: 10/17/19 18:59 Last Admin: 09/20/19 07:07 Dose: 0.5 mg Documented by: Dextrose (Dextrose 50%) 25 - 50 ml IV UD PRN; Protocol PRN Reason: Hypoglycemia Protocol Stop: 10/17/19 08:30 Donepezil HCl (Aricept) 5 mg PO HS [facility] Stop: 10/17/19 20:59 Last Admin: 09/19/19 20:12 Dose: 5 mg Documented by: Formoterol Fumarate (Perforomist) 20 mcg NEB BIDR [facility] Stop: 10/17/19 18:59 Last Admin: 09/20/19 07:07 Dose: 20 mcg Documented by: Furosemide (Lasix) 40 mg PO QAM [facility] Stop: 10/19/19 08:59 Last Admin: 09/20/19 07:43 Dose: 40 mg Documented by: Glucagon (Glucagen) 1 mg SQ UD PRN; Protocol PRN Reason: Hypoglycemia Protocol Stop: 10/17/19 08:30 Glucose (Dex4 Glucose) 4 - 8 tabs PO UD PRN; Protocol PRN Reason: Hypoglycemia Protocol Stop: 10/17/19 08:30 Glucose (Glucose 40%) 15 - 30 gm PO UD PRN; Protocol PRN Reason: Hypoglycemia Protocol Stop: 10/17/19 08:30 Guaifenesin (Mucinex) 1,200 mg PO Q12 [facility] Stop: 10/17/19 20:59 Last Admin: 09/20/19 07:44 Dose: 1,200 mg Documented by: Hydromorphone HCl (Dilaudid) 0.25 mg IV Q3H PRN PRN Reason: Pain Stop: 10/01/19 08:30 Promethazine HCl 12.5 mg/ (Sodium Chloride) 50.5 mls @ 202 mls/hr IV Q6H PRN PRN Reason: Nausea And Vomiting Stop: 10/17/19 08:30 Insulin Aspart (Novolog Flexpen) 0 units SC ACHS [facility] Stop: 10/17/19 08:30 Last Admin: 09/20/19 12:46 Dose: Not Given Documented by: Ipratropium [place] (Atrovent 0.02% 0.5mg/2.5ml) 0.5 mg INH Q6R [facility] Stop: 10/17/19 08:30 Last Admin: 09/20/19 13:26 Dose: 0.5 mg Documented by: Levalbuterol HCl (Xopenex 1.25mg/0.5ml Neb) 1.25 mg INH Q6R [facility] Stop: 10/17/19 08:30 Last Admin: 09/20/19 13:26 Dose: 1.25 mg Documented by: Levothyroxine Sodium (Synthroid) 50 mcg PO DAILYBB [facility] Stop: 10/17/19 08:59 Last Admin: 09/20/19 05:56 Dose: 50 mcg Documented by: Lisinopril (Zestril) 5 mg PO HS [facility] Stop: 10/17/19 20:59 Last Admin: 09/19/19 20:11 Dose: 5 mg Documented by: Metoprolol Tartrate (Lopressor) 50 mg PO BID [facility] Stop: 10/17/19 08:59 Last Admin: 09/20/19 07:43 Dose: 50 mg Documented by: Miscellaneous (Carbohydrates For Hypoglycemia) 15 - 30 gm PO UD PRN PRN Reason: Hypoglycemia Protocol Stop: 10/17/19 08:30 Potassium Chloride (Klor-Con M10) 10 meq PO QAM [facility] Stop: 10/19/19 08:59 Last Admin: 09/20/19 07:44 Dose: 10 meq Documented by: Pravastatin Sodium (Pravachol) 40 mg PO HS [facility] Stop: 10/19/19 20:59 Last Admin: 09/19/19 20:10 Dose: 40 mg Documented by: Sodium Chloride (Sodium Chlor 7% Neb Solution) 4 ml NEB BIDR [facility] Stop: 10/17/19 18:59 Last Admin: 09/20/19 07:07 Dose: 4 ml Documented by: Tiotropium [place] (Spiriva) 1 puffs INH QAM [facility] Stop: 10/17/19 16:59 Last Admin: 09/20/19 07:45 Dose: 1 puffs Documented by: Tramadol HCl (Ultram) 25 mg PO Q4H PRN PRN Reason: Pain Stop: 10/17/19 08:30
--- NOTE | 2019-09-20 16:41 | Pulmonology Progress Note ---
Date of Service September 20, 2019 Assessment & Plan (1) Acute on chronic respiratory failure with hypoxia and hypercapnia: Impression: 84-year-old male with advanced obstructive lung disease/e mphysema and acute on chronic hypoxemic respiratory failure with a history of hypercarbic respiratory failure admitted now with air-fluid levels and multiple bullae suggestive of infected bullae and possible pneumonia. Recommendations: 1. Infected bullae: Continue Augmentin for 4 weeks and then will need follow-up imaging with a CT of the chest. Additional antibiotics will be dictated based on results of follow-up imaging 2. Advanced obstructive lung disease with associated dyspnea: Continue Perforomist, Spiriva and budesonide. Would recommend discharging the patient on nebulizers as he appears to be doing better compared to his MDIs 3. History of hypercarbia: The patient has what sounds like a trilogy nocturnal ventilator at home. It is been extraordinarily difficult for him to tolerate at home and is only been able to use it for a few minutes at a time. We could consider BiPAP at night as I suspect he may have some component of dynamic airway collapse based on his history. No indication for bronchoscopy currently 4. Advised the patient and his son that his lung disease is a quite advanced stage. He agrees that intubation mechanical ventilation would not be in his b est long-term interest. We will see what we can accomplish with adjustment of his medications but certainly discussions approaching end-of-life issues may be appropriate. Patient looks like from a pulmonary standpoint he is doing well and could be considered for discharge. He should follow-up with ROSE[facility] Carmichael in the pulmonary clinic in the outpatient setting. (2) Pneumonia: (3) COPD exacerbation: (4) CKD (chronic kidney disease), stage III: (5) Paroxysmal atrial fibrillation: (6) Chronic diastolic heart failure: (7) Pulmonary hypertension: (8) Hx of pulmonary aspiration: (9) S/P coronary artery stent placement: (10) Hemoptysis: Patient clearly has evidence for infected bulla with numerous air-fluid levels and a pneumonitis. He has had trouble tolerating noninvasive positive pressure ventilation both as an outpatient and here in the hospital. I agree with the current selection of antibiotic and the length of its course but I do not believe patient would benefit or tolerate further aggressive intervention i.e. bronchoscopy with BAL. Subjective Patient seen and examined. Son at bedside. He feels his breathing is doing better. He is coughing less and son reported that he slept well last night. He feels that his cough is resolved. Review of Systems Review of Systems: Unchanged from prior Physical Exam Constitutional: well developed, well nourished, + frail appearing and cooperative Eyes: PERRL, conjunctivae normal, anicteric sclerae ENMT: external ear and nose normal, oropharynx normal Neck: trachea midline, no thyromegaly Respiratory: Auscultation: + diminished lung sounds and + wheezes Cardiovascular: RRR, no murmur, no edema Gastrointestinal (Abdomen): normal bowel sounds, soft, nontender, no hepatosplenomegaly Skin: + turgor decreased and + dry skin Psychiatric: A+Ox3, euthymic affect Insight: good insight Judgement: good judgement Results & Data Vital Signs (Past 12 Hours) Vital Signs Temp Pulse Resp BP Pulse Ox 09/20/19 15:26 36.6 C 79 18 117/74 92 09/20/19 13:27 74 18 95 09/20/19 07:07 72 18 94 09/20/19 07:00 36.3 C L 69 20 154/82 H 94 Laboratory Results 09/18/19 06:43 09/20/19 07:57 Diagnostic Findings No new films PG Care Time/CCT Total # of Minutes Spent Total Time Spent with Patient: Total time spent is greater than 50% in coordination of care (as documented) at patient's floor/unit and/or counseling patient:
[2019-09-20] MEDS: PRAVASTATIN SOD 40 MG TAB PO SCH (20:50)
[2019-09-20] MEDS: LISINOPRIL 5 MG TAB PO SCH (20:50)
[2019-09-20] MEDS: ASPIRIN 81 MG ECTAB PO SCH (20:50)
[2019-09-20] MEDS: DONEPEZIL HCL 5 MG TAB PO SCH (20:50)
[2019-09-21] MEDS: LEVALBUTEROL 1.25MG/0.5ML NEB INH SCH ×4 (00:55→19:44)
[2019-09-21] MEDS: IPRATROPIUM BROMIDE NEB SOLN 0.02% 2.5 ML VIAL INH SCH ×4 (00:56→19:44)
[2019-09-21] MEDS: LEVOTHYROXINE SODIUM 50 MCG TABLET PO SCH (06:06)
[2019-09-21] MEDS: SODIUM CHLOR 7% 4 ML NEB NEB SCH ×2 (07:35→19:42)
[2019-09-21] MEDS: BUDESONIDE 0.5 MG/2 ML VIAL (PULMICORT) NEB SCH ×2 (07:35→19:42)
[2019-09-21] MEDS: FORMOTEROL 20 MCG/2 ML VIAL NEB SCH ×2 (07:35→19:42)
[2019-09-21 07:51] LABS: BUN Creatinine Ratio 16.3 (10-20); Calcium 8.4 mg/dl (8.5-10.1); Creatinine Clr Calc Pharmacy 40.9 ml/min; Est GFR (African American) 55.4; Est GFR (Non-African American) 47.8
[2019-09-21 07:54] LABS: Hematocrit (blood only) 34.4 % (42-52); Hemoglobin 10.8 g/dL (14.0-18.0); Mean Corpuscular Hemoglobin 29.9 pg (25-34); Mean Corpuscular Hgb Conc 31.4 g/dL (32-36); Mean Corpuscular Volume 95.3 fL (80-100); Mean Platelet Volume 9.6 fL (7.4-10.4); Platelet Count 198 K/uL (130-400); RDW Coefficient of Variation 14.5 % (11.5-14.5); RDW Standard Deviation 50.8 fL (36.4-46.3); Red Blood Count 3.61 M/uL (4.7-6.1); White Blood Count 5.28 K/uL (4.8-10.8)
[2019-09-21] MEDS: ALLOPURINOL 300 MG TAB PO SCH (09:59)
[2019-09-21] MEDS: AMLODIPINE BESYLATE 5 MG TAB PO SCH (09:59)
[2019-09-21] MEDS: FUROSEMIDE 40 MG TAB PO SCH (09:59)
[2019-09-21] MEDS: POTASSIUM CHLORIDE 10 MEQ TABCR PO SCH (10:00)
[2019-09-21] MEDS: APIXABAN 2.5 MG TAB PO SCH ×2 (10:00→20:30)
[2019-09-21] MEDS: guaiFENesin 600 MG TABCR PO SCH ×2 (10:00→20:31)
[2019-09-21] MEDS: AMOXICILLIN/CLAVULANATE 875 MG TAB PO SCH ×2 (10:01→17:40)
[2019-09-21] MEDS: METOPROLOL TARTRATE 50 MG TAB PO SCH ×2 (10:01→20:30)
[2019-09-21] MEDS: TIOTROPIUM BROMIDE 5 PUFF/90 MCG INH INH SCH (11:27)
--- NOTE | 2019-09-21 16:20 | Pulmonology Progress Note ---
Date of Service September 21, 2019 Assessment & Plan (1) Acute on chronic respiratory failure with hypoxia and hypercapnia: CT scan of the chest suggests air-fluid levels and bullae suggesting infected bullae and possible pneumonia Continue Augmentin for 4 weeks with follow-up CT of the chest without contrast Follow-up in the office to look for resolution Ambulate as tolerated Patient has trilogy noninvasive ventilator at home -continue with this at bedtime and as needed with current settings We will further discuss trilogy versus BiPAP or CPAP at outpatient office once pulmonary status is improved No indication for steroids at this time especially with the infected bullae We will follow-up in the outpatient clinic for further care (2) COPD exacerbation: Patient with severe COPD Long discussion with son and with patient regarding need for compliance of medication and follow-up in the clinic Medications include changed in the inpatient setting and should be continued on discharge Current regimen seems to be working well We will continue to follow as an outpatient Thank you for including us in the care of this patient. At this time we will sign off. From a pulmonary standpoint, the patient can be discharged home and we will follow in the outpatient office with Fidencio Carmichael PA-C. He is currently scheduled to see Fidencio Carmichael 10/04/2019 at 9:45 AM at [facility]. Subjective Attending: Dr. Rivas Patient seen and examined at bedside. He is sitting in bedside chair and is qu ite comfortable. He has no respiratory distress. Occasional nonproductive cough while we are speaking. Patient denies any fever or chills. Son is at bedside and expresses concern over her father being more tired in the evening after dinner. Otherwise no concerns. Patient denies any other acute complaints. Review of Systems Review of Systems: All systems reviewed & are unremarkable except as noted in HPI & below Physical Exam Physical Exam: GENERAL : No acute distress EYES: No icterus, gaze conjugate NOSE: No evidence of epistaxis MOUTH: No lesions or candidiasis NECK: Supple LUNGS: Breath sounds are diminished with some scattered wheezes. No rales or rhonchi appreciated HEART: Regular, rate controlled ABDOMEN: Soft, NT, ND, BS Present EXTREMITIES: No LE edema, pedal pulses intact NEURO: A&OX3. Results & Data Vital Signs (Past 12 Hours) Vital Signs Temp Pulse Pulse Resp BP Pulse Ox 09/21/19 15:00 36.5 C 78 18 109/68 96 09/21/19 14:08 77 20 97 09/21/19 12:00 36.2 C L 73 18 147/78 H 97 09/21/19 07:36 36.3 C L 71 20 160/88 H 98 09/21/19 07:35 72 18 97 09/21/19 04:53 36.5 C 75 18 150/78 H 98 Laboratory Results 09/21/19 07:00 09/21/19 07:00 Diagnostic Findings No new imaging since 09/17/2019 PG Care Time/CCT Total # of Minutes Spent Total Time Spent with Patient: Total time spent is greater than 50% in coordination of care (as documented) at patient's floor/unit and/or counseling p atient:25 minutes
--- NOTE | 2019-09-21 17:05 | Palliative Care Progress Note ---
Date of Service September 21, 2019 Assessment & Plan (1) Goals of care, counseling/discussion: -Long discussion with patient and his son about goals of care. Again explained difference between palliative care and hospice. -Son had a lot of questions about hospice-- all of his questions answered. -Discussed that patient may not be ready for hospice at this time, but they could transition in the future. If patient continues to do poorly and come to the hospital with exacerbations despite maximal therapy, he states he would likely transition to hospice at that point. -Plan is for home with [facility]. They will ask for a hospice plan administrator to come into the home to discuss what hospice could offer and when their service would be appropriate for patient. -Talked again about code status-- patient and family would like to continue this conversation at home with other family members. He remains a conditional code at this time-- okay with compressions but no intubation. (2) Chronic diastolic heart failure: (3) Pneumonia: (4) CKD (chronic kidney disease), stage III: (5) Hx of pulmonary aspiration: (6) Dependence on continuous supplemental oxygen: Subjective Patient sitting up in chair. Son at bedside. Patient has no new complaints and states he is feeling better today-- less SOB. Review of Systems Review of Systems: Denies pain, N/V. Does c/o SOB, and dyspnea on exertion. C/o dry cough, not bringing anything up since this morning. Physical Exam Constitutional: well developed and well nourished ENMT: external ear and nose normal, oropharynx normal Respiratory: Auscultation: + diminished lung sounds Cardiovascular: RRR, no murmur, no edema Gastrointestinal (Abdomen): normal bowel sounds, soft, nontender, no hepatosplenomegaly Psychiatric: A+Ox3, euthymic affect Insight: good insight Results & Data Vital Signs (Past 12 Hours) Vital Signs Temp Pulse Resp BP Pulse Ox 09/21/19 15:00 36.5 C 78 18 109/68 96 09/21/19 14:08 77 20 97 09/21/19 12:00 36.2 C L 73 18 147/78 H 97 09/21/19 07:36 36.3 C L 71 20 160/88 H 98 09/21/19 07:35 72 18 97 Supervising Physician Co-Signing Physician Notes Patient seen and examined, collaborated with GISSEL Rutherford PE: Patient sitting up in a chair at bedside, no family at bedside HEENT: EOMI, mild [place] Respirations: Unlabored, diminished breath sounds bilaterally CV: Regular rate Abdomen: Soft, nontender Neuro: Awake and alert Agree with above note, assessment and plan as per GISSEL Rutherford-will continue to follow and assist family with medical decision making. PG Care Time/CCT Prolonged Care Time Prolonged Care Time: Yes Total Prolonged Care Time: 65 Time Spent Midlevel 65 minutes with >50% of time spent at bedside with patient and family discussing condition and GOC.
--- NOTE | 2019-09-21 17:30 | Hospitalist Progress Note ---
Date of Service September 21, 2019 Assessment & Plan (1) COPD exacerbation: Trial of formoterol and Spiriva now. Nebulized saline. Budesonide twice daily. Systemic steroids not recommended as per transportation consultant Doing well on Augmentin which will need to be continued for 4 weeks in setting of infected bullae. Doubt any aspiration pneumonia Disposition recs per pulmonology. Appreciate palliative care input Home hospice consideration given end-stage COPD. (2) Pneumonia: Recent hospitalization at [facility] and multiple hospitalizations prior to that. Augmentin above. Per pulmonology patient appears to have infected bullae. Scant hemoptysis has been noted by patient but this is not persistent or copious. Follow-up with pulmonology closely as an outpatient is recommended. Clinically much better as of today (3) CKD (chronic kidney disease), stage III: Chronic/stable. Trend BMP. Avoid nephrotoxic medications. Renally dose meds as needed. (4) Paroxysmal atrial fibrillation: Rate controlled with Lopressor. Eliquis restarted but at lower dose in setting of age and kidney disease. (5) CAD (coronary artery disease): Continue medical management for CAD per home regimen including aspirin, lisinopril, Lopressor, statin. Denies any acute cardiac symptoms (6) Dependence on continuous supplemental oxygen: Secondary to COPD. Continue supplemental oxygen as needed to maintain oxygen saturation 88 to 92%. Remains stable as of today Discussed with the son and the patient in detail Advised to avoid any stressors (7) Chronic diastolic heart failure: Stable, euvolemic. Restart Lasix (8) Prediabetes: Recent hemoglobin A1c 6.2. All insulin products stopped as patient has been at goal for several days. Blood sugar checks were discontinued. (9) Hx MRSA infection: Contact isolation. (10) DVT prophylaxis: Eliquis Conditional code okay with CPR and cardiac defibrillation, no intubation. Dispo-plan for home when medically stable, PT/OT to assess safety for return home. Encouraged ambulation as part of pulmonary toilet efforts. Likely discharge tomorrow Subjective 09/21 The patient was seen and examined in medical floor He has end-stage COPD remains stable as of today Denies any significant symptoms Last evening he has had some issues with the breathing immediately after food Is not yet ready to be discharged Review of Systems Review of Systems: All systems reviewed and are unremarkable except as noted below Respiratory: + cough and + dyspnea Physical Exam Physical Exam: Sitting in a chair without any acute distress Constitutional: well developed and well nourished; no acute distress and not ill appearing Eyes: PERRL, conjunctivae normal, anicteric sclerae ENMT: external ear and nose normal, oropharynx normal Neck: trachea midline, no thyromegaly Respiratory: normal respiratory effort; no respiratory distress Auscultation: + diminished lung sounds; no crackles and no rhonchi Cardiovascular: Rate/Rhythm: regular rate and regular rhythm Heart Sounds: no murmur Gastrointestinal (Abdomen): Inspection/Auscultation: abdomen normal to inspection and normal bowel sounds Percussion/Palpation: abdomen soft; abdomen nontender Musculoskeletal: No acute arthritis in any joints Lymphatic: no cervical or axillary lymphadenopathy Results & Data Vital Signs (Past 12 Hours) Vital Signs Temp Pulse Resp BP Pulse Ox 09/21/19 15:00 36.5 C 78 18 109/68 96 09/21/19 14:08 77 20 97 09/21/19 12:00 36.2 C L 73 18 147/78 H 97 09/21/19 07:36 36.3 C L 71 20 160/88 H 98 09/21/19 07:35 72 18 97 Laboratory Results Short CBC 09/21/19 Range/Units 07:00 WBC 5.28 (4.8-10.8) K/uL Hgb 10.8 L (14.0-18.0) g/dL Hct 34.4 L (42-52) % Plt Count 198 (130-400) K/uL BMP 09/21/19 07:00 Sodium 141 Potassium 4.0 Chloride 106 Carbon Dioxide 30 BUN 22 H Creatinine 1.36 Glucose 93 Calcium 8.4 L Medications Administered Current Inpatient Medications Acetaminophen (Tylenol) 650 mg PO Q4H PRN PRN Reason: Pain or Fever Stop: 10/17/19 08:30 Allopurinol (Zyloprim) [address] [facility] Stop: 10/17/19 08:59 Last Admin: 09/21/19 09:59 Dose: 300 mg Documented by: Amlodipine Besylate (Norvasc) [address] [facility] Stop: 10/17/19 08:59 Last Admin: 09/21/19 09:59 Dose: 5 mg Documented by: Amoxicillin/Clavulanate Potassium (Augmentin 875mg) [facility] Stop: 09/25/19 09:34 Last Admin: 09/21/19 10:01 Dose: 1 tab Documented by: Apixaban (Eliquis) 2.5 mg PO BID [facility] Stop: 10/19/19 09:59 Last Admin: 09/21/19 10:00 Dose: 2.5 mg Documented by: Aspirin (Ecotrin Ectab) 81 mg PO HS [facility] Stop: 10/19/19 20:59 Last Admin: 09/20/19 20:50 Dose: 81 mg Documented by: Benzonatate (Tessalon Perle) 100 mg PO TID PRN PRN Reason: Cough Stop: 10/17/19 08:30 Last Admin: 09/20/19 05:56 Dose: 100 mg Documented by: Budesonide (Pulmicort Respules) 0.5 mg NEB BIDR [facility] Stop: 10/17/19 18:59 Last Admin: 09/21/19 07:35 Dose: 0.5 mg Documented by: Donepezil HCl (Aricept) 5 mg PO [facility] Stop: 10/17/19 20:59 Last Admin: 09/20/19 20:50 Dose: 5 mg Documented by: Formoterol Fumarate (Perforomist) 20 mcg NEB BIDR [facility] Stop: 10/17/19 18:59 Last Admin: 09/21/19 07:35 Dose: 20 mcg Documented by: Furosemide (Lasix) 40 mg PO QAM [facility] Stop: 10/19/19 08:59 Last Admin: 09/21/19 09:59 Dose: 40 mg Documented by: Guaifenesin (Mucinex) 1,200 mg PO Q12 [facility] Stop: 10/17/19 20:59 Last Admin: 09/21/19 10:00 Dose: 1,200 mg Documented by: Hydromorphone HCl (Dilaudid) 0.25 mg IV Q3H PRN PRN Reason: Pain Stop: 10/01/19 08:30 Promethazine HCl 12.5 mg/ (Sodium Chloride) 50.5 mls @ 202 mls/hr IV Q6H PRN PRN Reason: Nausea And Vomiting Stop: 10/17/19 08:30 Ipratropium [place] (Atrovent 0.02% 0.5mg/2.5ml) 0.5 mg INH Q6R [facility] Stop: 10/17/19 08:30 Last Admin: 09/21/19 14:06 Dose: 0.5 mg Documented by: Levalbuterol HCl (Xopenex 1.25mg/0.5ml Neb) 1.25 mg INH Q6R [facility] Stop: 10/17/19 08:30 Last Admin: 09/21/19 14:06 Dose: 1.25 mg Documented by: Levothyroxine Sodium (Synthroid) 50 mcg PO DAILYBB [facility] Stop: 10/17/19 08:59 Last Admin: 09/21/19 06:06 Dose: 50 mcg Documented by: Lisinopril (Zestril) 5 mg PO HS [facility] Stop: 10/17/19 20:59 Last Admin: 09/20/19 20:50 Dose: 5 mg Documented by: Metoprolol Tartrate (Lopressor) 50 mg PO BID [facility] Stop: 10/17/19 08:59 Last Admin: 09/21/19 10:01 Dose: 50 mg Documented by: Potassium Chloride (Klor-Con M10) 10 meq PO QAM [facility] Stop: 10/19/19 08:59 Last Admin: 09/21/19 10:00 Dose: 10 meq Documented by: Pravastatin Sodium (Pravachol) 40 mg PO HS [facility] Stop: 10/19/19 20:59 Last Admin: 09/20/19 20:50 Dose: 40 mg Documented by: Sodium Chloride (Sodium Chlor 7% Neb Solution) 4 ml NEB BIDR [facility] Stop: 10/17/19 18:59 Last Admin: 09/21/19 07:35 Dose: 4 ml Documented by: Tiotropium [place] (Spiriva) 1 puffs INH QAM [facility] Stop: 10/17/19 16:59 Last Admin: 09/21/19 11:27 Dose: 1 puffs Documented by: Tramadol HCl (Ultram) 25 mg PO Q4H PRN PRN Reason: Pain Stop: 10/17/19 08:30
[2019-09-21] MEDS: ASPIRIN 81 MG ECTAB PO SCH (20:30)
[2019-09-21] MEDS: LISINOPRIL 5 MG TAB PO SCH (20:30)
[2019-09-21] MEDS: PRAVASTATIN SOD 40 MG TAB PO SCH (20:31)
[2019-09-21] MEDS: DONEPEZIL HCL 5 MG TAB PO SCH (20:32)
[2019-09-22] MEDS: LEVALBUTEROL 1.25MG/0.5ML NEB INH SCH ×3 (01:31→13:52)
[2019-09-22] MEDS: IPRATROPIUM BROMIDE NEB SOLN 0.02% 2.5 ML VIAL INH SCH ×3 (01:31→13:52)
[2019-09-22] MEDS: LEVOTHYROXINE SODIUM 50 MCG TABLET PO SCH (06:25)
[2019-09-22 07:49] VITALS: BP 133/76; TEMP 97.9
[2019-09-22] MEDS: AMOXICILLIN/CLAVULANATE 875 MG TAB PO SCH (07:54)
[2019-09-22] MEDS: AMLODIPINE BESYLATE 5 MG TAB PO SCH (07:55)
[2019-09-22] MEDS: POTASSIUM CHLORIDE 10 MEQ TABCR PO SCH (07:55)
[2019-09-22] MEDS: APIXABAN 2.5 MG TAB PO SCH (07:55)
[2019-09-22] MEDS: FUROSEMIDE 40 MG TAB PO SCH (07:55)
[2019-09-22] MEDS: guaiFENesin 600 MG TABCR PO SCH (07:55)
[2019-09-22] MEDS: ALLOPURINOL 300 MG TAB PO SCH (07:56)
[2019-09-22] MEDS: TIOTROPIUM BROMIDE 5 PUFF/90 MCG INH INH SCH (07:56)
[2019-09-22] MEDS: METOPROLOL TARTRATE 50 MG TAB PO SCH (07:57)
[2019-09-22] MEDS: FORMOTEROL 20 MCG/2 ML VIAL NEB SCH (08:07)
[2019-09-22] MEDS: BUDESONIDE 0.5 MG/2 ML VIAL (PULMICORT) NEB SCH (08:07)
[2019-09-22] MEDS: SODIUM CHLOR 7% 4 ML NEB NEB SCH (08:07)
--- NOTE | 2019-09-22 13:29 | Hospitalist Progress Note ---
Date of Service September 22, 2019 Assessment & Plan (1) COPD exacerbation: Trial of formoterol and Spiriva now. Nebulized saline. Budesonide twice daily. Systemic steroids not recommended as per manager philosophy Doing well on Augmentin which will need to be continued for 4 weeks in setting of infected bullae. Doubt any aspiration pneumonia Disposition recs per pulmonology. Appreciate palliative care input Home hospice consideration given end-stage COPD. Remains stable and denies any other significant symptoms Discussed with the son and the patient will be discharged home this afternoon (2) Pneumonia: Recent hospitalization at [facility] and multiple hospitalizations prior to that. Augmentin above. Per pulmonology patient appears to have infected bullae. Scant hemoptysis has been noted by patient but this is not persistent or copious. Follow-up with pulmonology closely as an outpatient is recommended. Clinically much better as of today (3) CKD (chronic kidney disease), stage III: Chronic/stable. Trend BMP. Avoid nephrotoxic medications. Renally dose meds as needed. (4) Paroxysmal atrial fibrillation: Rate controlled with Lopressor. Eliquis restarted but at lower dose in setting of age and kidney disease. (5) CAD (coronary artery disease): Continue medical management for CAD per home regimen including aspirin, lisinopril, Lopressor, statin. Denies any acute cardiac symptoms (6) Dependence on continuous supplemental oxygen: Secondary to COPD. Continue supplemental oxygen as needed to maintain oxygen saturation 88 to 92%. Remains stable as of today Discussed with the son and the patient in detail Advised to avoid any stressors (7) Chronic diastolic heart failure: Stable, euvolemic. Restart Lasix (8) Prediabetes: Recent hemoglobin A1c 6.2. All insulin products stopped as patient has been at goal for several days. Blood sugar checks were discontinued. (9) Hx MRSA infection: Contact isolation. (10) DVT prophylaxis: Eliquis Conditional code okay with CPR and cardiac defibrillation, no intubation. Dispo-plan for home when medically stable, PT/OT to assess safety for return home. Encouraged ambulation as part of pulmonary toilet efforts. Likely discharge tomorrow (11) Ambulatory dysfunction: Has been complaining of weak right foot for some time and also right foot drop That has been worse this morning Neuro examination unremarkable except decreased dorsiflexion Reassured and was advised to take precaution to avoid fall at home while ambulating Subjective 11/26 The patient was seen and examined in medical floor He has end-stage COPD remains stable as of today Denies any significant symptoms Last evening he has had some issues with the breathing immediately after food Is not yet ready to be discharged 09/22 The patient was seen and examined in medical floor He has been complaining of right foot drop with difficulty in ambulation since this morning He has had this problem before as he mentioned to him He did not have any more episodes of shortness of breath following meal last evening Denies any other symptoms Review of Systems Review of Systems: All systems reviewed and are unremarkable except as noted below Physical Exam Physical Exam: Lying in bed comfortably Constitutional: well developed and well nourished; no acute distress and not ill appearing Eyes: PERRL, conjunctivae normal, anicteric sclerae ENMT: external ear and nose normal, oropharynx normal Neck: trachea midline, no thyromegaly Respiratory: normal respiratory effort; no respiratory distress Auscultation: + diminished lung sounds; no crackles and no rhonchi Cardiovascular: Rate/Rhythm: regular rate and regular rhythm Heart Sounds: no murmur Gastrointestinal (Abdomen): Inspection/Auscultation: abdomen normal to inspection and normal bowel sounds Percussion/Palpation: abdomen soft; abdomen nontender Neurologic: moves all extremities and + focal motor deficit (Dorsiflexion of the right foot is diminished) Speech / Cognition: normal speech Alert, awake and oriented x3, Lymphatic: no cervical or axillary lymphadenopathy Results & Data Vital Signs (Past 12 Hours) Vital Signs Temp Pulse Resp BP Pulse Ox 09/22/19 08:08 74 18 93 09/22/19 07:49 36.6 C 74 16 133/76 95 09/22/19 01:32 73 18 96 Medications Administered Current Inpatient Medications Acetaminophen (Tylenol) 650 mg PO Q4H PRN PRN Reason: Pain or Fever Stop: 10/17/19 08:30 Allopurinol (Zyloprim) 300 mg PO [facility] Stop: 10/17/19 08:59 Last Admin: 09/22/19 07:56 Dose: 300 mg Documented by: Amlodipine [facility] ([facility]) [facility] Stop: 10/17/19 08:59 Last Admin: 09/22/19 07:55 Dose: 5 mg Documented by: Amoxicillin/Clavulanate Potassium (Augmentin 875mg) 1 tab PO BIDM [facility] Stop: 09/25/19 09:34 Last Admin: 09/22/19 07:54 Dose: 1 tab Documented by: Apixaban (Eliquis) 2.5 mg PO BID [facility] Stop: 10/19/19 09:59 Last Admin: 09/22/19 07:55 Dose: 2.5 mg Documented by: Aspirin (Ecotrin Ectab) 81 mg PO HS [facility] Stop: 10/19/19 20:59 Last Admin: 09/21/19 20:30 Dose: 81 mg Documented by: Benzonatate (Tessalon Perle) 100 mg PO TID PRN PRN Reason: Cough Stop: 10/17/19 08:30 Last Admin: 09/20/19 05:56 Dose: 100 mg Documented by: Budesonide (Pulmicort Respules) 0.5 mg NEB BIDR [facility] Stop: 10/17/19 18:59 Last Admin: 09/22/19 08:07 Dose: 0.5 mg Documented by: Donepezil HCl (Aricept) 5 mg PO [facility] Stop: 10/17/19 20:59 Last Admin: 09/21/19 20:32 Dose: 5 mg Documented by: Formoterol Fumarate (Perforomist) 20 mcg NEB BIDR [facility] Stop: 10/17/19 18:59 Last Admin: 09/22/19 08:07 Dose: 20 mcg Documented by: Furosemide (Lasix) 40 mg PO QAM [facility] Stop: 10/19/19 08:59 Last Admin: 09/22/19 07:55 Dose: 40 mg Documented by: Guaifenesin (Mucinex) 1,200 mg PO Q12 [facility] Stop: 10/17/19 20:59 Last Admin: 09/22/19 07:55 Dose: 1,200 mg Documented by: Hydromorphone HCl (Dilaudid) 0.25 mg IV Q3H PRN PRN Reason: Pain Stop: 10/01/19 08:30 Promethazine HCl 12.5 mg/ (Sodium Chloride) 50.5 mls @ 202 mls/hr IV Q6H PRN PRN Reason: Nausea And Vomiting Stop: 10/17/19 08:30 Ipratropium [place] (Atrovent 0.02% 0.5mg/2.5ml) 0.5 mg INH Q6R [facility] Stop: 10/17/19 08:30 Last Admin: 09/22/19 08:08 Dose: Not Given Documented by: Levalbuterol HCl (Xopenex 1.25mg/0.5ml Neb) 1.25 mg INH Q6R [facility] Stop: 10/17/19 08:30 Last Admin: 09/22/19 08:08 Dose: Not Given Documented by: Levothyroxine Sodium (Synthroid) 50 mcg PO DAILYBB [facility] Stop: 10/17/19 08:59 Last Admin: 09/22/19 06:25 Dose: 50 mcg Documented by: Lisinopril (Zestril) 5 mg PO HS [facility] Stop: 10/17/19 20:59 Last Admin: 09/21/19 20:30 Dose: 5 mg Documented by: Metoprolol Tartrate (Lopressor) 50 mg PO BID [facility] Stop: 10/17/19 08:59 Last Admin: 09/22/19 07:57 Dose: 50 mg Documented by: Potassium Chloride (Klor-Con M10) 10 meq PO QAM [facility] Stop: 10/19/19 08:59 Last Admin: 09/22/19 07:55 Dose: 10 meq Documented by: Pravastatin Sodium (Pravachol) 40 mg PO HS [facility] Stop: 10/19/19 20:59 Last Admin: 09/21/19 20:31 Dose: 40 mg Documented by: Sodium Chloride (Sodium Chlor 7% Neb Solution) 4 ml NEB BIDR [facility] Stop: 10/17/19 18:59 Last Admin: 09/22/19 08:07 Dose: 4 ml Documented by: Tiotropium [place] (Spiriva) 1 puffs INH QAM [facility] Stop: 10/17/19 16:59 Last Admin: 09/22/19 07:56 Dose: 1 puffs Documented by: Tramadol HCl (Ultram) 25 mg PO Q4H PRN PRN Reason: Pain Stop: 10/17/19 08:30
[2019-09-22 13:53] VITALS: PULSE 76; O2SAT 95
--- NOTE | 2019-09-23 07:57 | Discharge Summary ---
Date of Service September 23, 2019 Admission HPI Per Admitting Provider History obtained from patient, family, and records. Medical history significant for chronic respiratory failure secondary to COPD on home O2, chronic diastolic heart failure (EF of 70%, TTE 2018), CAD status post stent, HTN, aortic stenosis, PAF on Eliquis, AAA status post surgery, history CVA as per records, history of esophageal dysfunction/aspiration risk, CRI (baseline creatinine 1.5), chronic anemia (baseline hemoglobin 11), past tobacco use, prediabetes, history of skin cancer status post surgery, hx MRSA. Recent confinement [facility] June 2019 for COPD exacerbation. Recent confinement [facility] last month for bilateral pneumonia. Subsequent discharge to rehab. Patient discharged back home to reside with his son last week. 3 days history of increasing shortness of breath with junky cough occasionally blood-streaked. Still coughing with meals/water intake from time to time if not careful as per patient. No chest pain. Patient seen at [facility] [place] office 3 days ago. Prescribed Levaquin and prednisone course for COPD exacerbation. Worsening symptoms despite compliance with prescription. 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 Admission Exam Per Admitting Provider Physical Exam: GENERAL: Slightly uncomfortable, speaks in phrases, minimal respiratory distress, pleasant, slightly hard of hearing, intermittent coughing SKIN: Pallor , warm HEENT: Pale palpebral conjunctivae, no ptosis, dry buccal mucosa, nasal cannula in place NECK : Supple, no tenderness CHEST : Decreased breath sounds , expiratory wheezes, no tenderness HEART : RRR, systolic murmur ABDOMEN: Some distention, nontender EXTREMITIES : No LE swelling/tenderness, no other conspicuous deformities noted NEUROLOGIC : Coherent, no facial asymmetry, slightly hard of hearing, no other gross focality Principal Diagnosis COPD exacerbation, pneumonia, chronic kidney disease, paroxysmal atrial fibrillation Discharge Exam Constitutional well developed and well nourished; no acute distress and not ill appearing Eyes PERRL, conjunctivae normal, anicteric sclerae ENMT external ear and nose normal, oropharynx normal Neck trachea midline, no thyromegaly Respiratory normal respiratory effort; no respiratory distress Auscultation: + diminished lung sounds; no crackles and no rhonchi Cardiovascular Rate/Rhythm: regular rate and regular rhythm Heart Sounds: no murmur Gastrointestinal (Abdomen) Inspection/Auscultation: abdomen normal to inspection and normal bowel sounds Percussion/Palpation: abdomen soft; abdomen nontender Neurologic moves all extremities and + focal motor deficit (Dorsiflexion of the right foot is diminished) Speech / Cognition: normal speech Lymphatic no cervical or axillary lymphadenopathy Discharge Data Allergies Allergy/AdvReac Type Severity Reaction Status Date / Time moxifloxacin AdvReac Mild dizziness Verified 09/17/19 02:21 Consultations 09/17/19 03:33 ED Decision to Admit Stat 09/17/19 08:31 Consult Pulmonology Routine 09/20/19 10:27 Consult Palliative Care Routine Ordered Studies 09/17/19 03:55 CT chest wo con Urgent 09/17/19 13:00 FL video swallow Routine Hospital Course (1) COPD exacerbation: Trial of formoterol and Spiriva now. Nebulized saline. Budesonide twice daily. Systemic steroids not recommended as per bed manager Doing well on Augmentin which will need to be continued for 4 weeks in setting of infected bullae. Doubt any aspiration pneumonia Disposition recs per pulmonology. Appreciate palliative care input Home hospice consideration given end-stage COPD. Remains stable and denies any other significant symptoms Discussed with the son and the patient will be discharged home this afternoon (2) Pneumonia: Recent hospitalization at [facility] and multiple hospitalizations prior to that. Augmentin above. Per pulmonology patient appears to have infected bullae. Scant hemoptysis has been noted by patient but this is not persistent or copious. Follow-up with pulmonology closely as an outpatient is recommended. Clinically much better as of today (3) CKD (chronic kidney disease), stage III: Chronic/stable. Trend BMP. Avoid nephrotoxic medications. Renally dose meds as needed. (4) Paroxysmal atrial fibrillation: Rate controlled with Lopressor. Eliquis restarted but at lower dose in setting of age and kidney disease. (5) CAD (coronary artery disease): Continue medical management for CAD per home regimen including aspirin, lisinopril, Lopressor, statin. Denies any acute cardiac symptoms (6) Dependence on continuous supplemental oxygen: Secondary to COPD. Continue supplemental oxygen as needed to maintain oxygen saturation 88 to 92%. Remains stable as of today Discussed with the son and the patient in detail Advised to avoid any stressors (7) Chronic diastolic heart failure: Stable, euvolemic. Restart Lasix (8) Prediabetes: Recent hemoglobin A1c 6.2. All insulin products stopped as patient has been at goal for several days. Blood sugar checks were discontinued. (9) Hx MRSA infection: Contact isolation. (10) DVT prophylaxis: Eliquis Conditional code okay with CPR and cardiac defibrillation, no intubation. Dispo-plan for home when medically stable, PT/OT to assess safety for return home. Encouraged ambulation as part of pulmonary toilet efforts. Likely discharge tomorrow (11) Ambulatory dysfunction: Has been complaining of weak right foot for some time and also right foot drop That has been worse this morning Neuro examination unremarkable except decreased dorsiflexion Reassured and was advised to take precaution to avoid fall at home while ambulating Total Time Total Time Spent Total Time Spent (In Minutes): 35 minutes Total Time Includes: Examination of the Patient, Discharge Planning, Medication Reconciliation and Communication With Other Providers Discharge Plan Discharge Items Patient Disposition: Home - Home Health Services Reason For Visit: COPD EXACERBATION Discharge Diagnosis: COPD exacerbation, pneumonia, chronic kidney disease, paroxysmal atrial fibrillation Condition on Discharge: Fair Activity: Resume your previous activity Non-emergency contact: Primary Care Provider Call non-emergency contact if: you have any medication questions Follow-up/Referrals: Morgan Carmichael PA-C [Physician Emergency Management Coordinator] - 10/04/19 9:45 am Ochoa Kelly DO [Primary Care Provider] - (Please make an appointment with your primary care provider within 1 week) Diet: Carb Consistent or DM2 and Heart Healthy Addtl Attending Provider Instructions: Please take precaution to avoid fall Try to avoid respiratory stimulants as discussed Pending Studies at Discharge: No Stand-Alone Forms: My [employer], Smoking Cessation Medications and DC Order Prescriptions: New amoxicillin-pot clavulanate 875-125 mg Tablet 1 tab PO BIDM 21 Days Qty: 42 RF: 0 Lactinex 1 million cell tablet,chewable 1 tab PO BID Qty: 60 RF: 0 Continued (DME) Oxygen Home Liters Per Minute See Dose Instructions .ROUTE .MEDSUPPLY Qty: 1 RF: 0 budesonide 0.5 mg/2 mL suspension for nebulization 2 ml INH BID RF: 0 donepezil 5 mg tablet 5 mg PO HS RF: 0 pravastatin 40 mg tablet 40 mg PO HS RF: 0 amlodipine 5 mg tablet 5 mg PO QAM RF: 0 aspirin 81 mg Tablet,Delayed Release (Dr/Ec) 81 mg PO HS RF: 0 levothyroxine 50 mcg tablet 50 mcg PO QAM RF: 0 allopurinol 300 mg tablet 300 mg PO QAM RF: 0 lisinopril 5 mg tablet 5 mg PO HS RF: 0 potassium chloride 10 mEq tablet,ER particles/crystals 10 meq PO QAM RF: 0 metoprolol tartrate 50 mg tablet 50 mg PO BID RF: 0 furosemide 40 mg tablet 40 mg PO QAM RF: 0 furosemide 20 mg tablet 20 mg PO QAM RF: 0 ProAir RespiClick 90 mcg/actuation aerosol powdr breath activated 2 puffs INH Q6H PRN (Reason: Shortness Of Breath Or Wheezing) RF: 0 albuterol sulfate 2.5 mg /3 mL (0.083 %) Solution For Nebulization 2.5 mg INHALATION TID RF: 0 Changed Eliquis 5 mg tablet 2.5 mg PO BID Qty: 0 RF: 0 Discontinued levofloxacin [Levaquin] 500 mg tablet 500 mg PO DAILY Qty: 7 RF: 0 prednisone 10 mg tablet See Rx Instructions PO DAILY Qty: 20 RF: 0 Discharge Orders: Discharge Order (Routine); Ordered 09/22/19 Ordered By: Noel Rivera Admission Data Admit Date/Time: 09/17/19 05:32 Attending Provider: Noel Rivera Admit Provider: Jim Yip Primary Care Provider: Ochoa Kelly Other Providers: [facility] ; Jim Yip ; Jonny Hart ; Maryuri Lerma ; Darlene Stokes Other Interventions: Discharge Summary Assessment (RN) Last Done: 09/22/19 13:39 DC Date/Time DO NOT enter until pt leaves facility: 09/22/19 14:38
== END 2019-09-22 14:38 | disposition home health service (06) | DRG 190 ==
LOC: ED 00:48 → 2W 05:32 → SUATTDRO 05:32 → 2W 06:26 → 4W 09-21 21:48